=== PATIENT | male | born 1935 | race Caucasian/White ===

== ENCOUNTER → 2016-04-28 | Outpatient (CLI) | payer OTHER ==
[~2016-04-28] MED LIST: CHOL1000 PO; CMD5 PO; DILT-113 PO; SIMV20TA2 PO
--- NOTE | 2016-04-28 13:08 | DIAGNOSTIC IMAGING REPORT ---
CT SCAN OF THE ABDOMEN AND PELVIS WITH IV CONTRAST CLINICAL HISTORY: Prostate cancer. COMPARISON STUDY: No priors. TECHNIQUE: Following the IV administration of 94 cc of Optiray 320, CT scan of the abdomen and pelvis is performed from the lung bases to the proximal femora. Images are reviewed in the axial, sagittal, and coronal planes. IV contrast was administered without complication. Automated dose control exposure was utilized. CT DOSE: 1057.50 mGycm FINDINGS: Lung bases: The heart is markedly enlarged and there is a small to moderate pericardial effusion. The aortic valve leaflets and coronary arteries are calcified. There is a spiculated left lower lobe mass lesion seen abutting the descending thoracic aorta. This measures 3.1 x 3.3 x 2.4 cm as seen on axial image #11. The lung bases are otherwise clear noting dependent atelectasis. Liver: The contrast-enhanced liver is normal in size, contour, and attenuation. There is no intrahepatic biliary ductal dilatation. The hepatic veins and portal veins are patent. Gallbladder: Hyperdense material filling the gallbladder lumen likely represents gallstone/sludge. There is no CT evidence of acute cholecystitis. Spleen: Normal in size and attenuation. Pancreas: There is moderate glandular atrophy of the pancreas. A 6 mm ovoid low-attenuation nodule in the pancreatic tail seen on image #148 likely represents a small sidebranch IPMN. Adrenal glands: Unremarkable. Kidneys: The contrast enhanced kidneys demonstrate mild cortical atrophy and are without hydronephrosis. The kidneys enhance symmetrically. A 1.9 cm cyst is present in the right lower pole. Abdominal vasculature: The abdominal aorta is normal in course and caliber noting mild to moderate atherosclerotic calcification. Bowel: There is no bowel obstruction. There is mild to moderate sigmoid diverticulosis without CT evidence of acute diverticulitis. Colonic interposition is incidentally noted. The appendix is well-visualized and normal. Peritoneum: There is no intraperitoneal free air or abdominal ascites. A small fat-containing umbilical hernia is identified. Lymphadenopathy: A prominent aortocaval node seen just above the iliac bifurcation on image #235 measures 1.4 x 0.8 cm. A pathologically enlarged right common iliac chain node on image #282 measures 2.1 x 1.4 cm. A right external iliac chain node on image #331 measures 2.6 x 2.0 cm. Pelvic viscera: The prostate gland is diminutive and contains brachytherapy seeds. The partially decompressed bladder is normal as imaged. Skeletal structures: The skeletal structures are osteopenic. Mild lumbosacral spondylosis is observed. No lytic or blastic lesions are seen. Hemangiomas are noted in the bodies of L2 and L3. Bony overgrowth is noted from the right aspect of the pubic symphysis. A small bone island is noted in the medial left ilium on image #292. IMPRESSION: 1. There is a 3.3 cm spiculated lung mass identified in the left lower lobe which appears adherent to the descending thoracic aorta. A primary pulmonary neoplasm is favored as the appearance is atypical for metastatic prostate cancer. 2. There are pathologically enlarged right iliac chain lymph nodes. This likely represents metastatic prostate cancer. 3. The prostate gland is diminutive and contains brachytherapy seeds. 4. Cardiomegaly noting a small to moderate pericardial effusion. 5. Cholelithiasis and biliary sludge. There is no CT evidence of acute cholecystitis. 6. Mild to moderate sigmoid diverticulosis without CT evidence of acute diverticulitis. 7. Additional findings as above. Electronically signed by: Ziyad Garcia M.D. 04/28/2016 1:07 PM Dictated Date/Time: 04/28/2016 12:57 PM
--- NOTE | 2016-04-28 15:13 | DIAGNOSTIC IMAGING REPORT ---
ADDENDUM Addendum: There is a voice recognition dictation are in the original report. The report was not completed. Additional findings: There is a focus of increased activity in the right malar region. This would be an atypical focus for a solitary metastasis. IMPRESSION: 1. Unexplained focus of increased activity in the right malar region. 2. Foci of increased activity within the left knee and right foot, likely degenerative/arthritic 3. No foci of increased activity viewed as suspicious for metastatic disease Electronically signed by: Erick Ballesteros M.D. 04/29/2016 2:41 PM Dictated Date/Time: 04/29/2016 2:39 PM ORIGINAL REPORT BONE SCAN WHOLE BODY CLINICAL HISTORY: Prostate carcinoma COMPARISON STUDY: CT scan performed the second 2016 FINDINGS: The patient was injected with 25 mCi of technetium 99m MDP. There are foci of increased activity within the left knee, right shoulder and right foot consistent with degenerative/arthritic changes. There are no foci of increased activity viewed as suspicious for metastatic disease. IMPRESSION: Electronically signed by: Erick Ballesteros M.D. 04/28/2016 3:11 PM Dictated Date/Time: 04/28/2016 2:54 PM
== END | disposition home or self-care (01) ==
LOC: C.NUCL 11:07
PROVIDERS: ATTEND Urology
DX: C61 Malignant neoplasm of prostate (principal); R91.8 Other nonspecific abnormal finding of lung field; I51.7 Cardiomegaly; I31.3 Pericardial effusion (noninflammatory); K80.20 Calculus of gallbladder without cholecystitis without obstruction; K57.30 Diverticulosis of large intestine without perforation or abscess without bleeding

== ENCOUNTER → 2016-04-29 | Outpatient (CLI) | payer OTHER ==
--- NOTE | 2016-04-29 14:48 | DIAGNOSTIC IMAGING REPORT ---
CHEST CT WITHOUT CONTRAST CT DOSE: 517.85 mGy.cm HISTORY: C61 Prostate [id number] Lung massC77.5 TECHNIQUE: Multiaxial CT images of the chest were performed without contrast. COMPARISON: Abdomen and pelvis CT 04/28/2016. FINDINGS: The central airways are patent. The heart remains enlarged. There is a small pericardial effusion, unchanged. Normal caliber thoracic aorta. Cholelithiasis and gallbladder sludge is again noted within the gallbladder. The visualized liver and spleen are unremarkable. Bilateral renal glands may be age-related. No significant mediastinal or hilar lymphadenopathy. No suspicious lytic or blastic osseous lesions. No pneumothorax. No pleural effusions. Redemonstration of the spiculated 3.3 cm mass within the left lower lobe which appears adherent to the descending thoracic aorta. There is a similar-appearing irregular lobulated mass within the left upper lobe which measures approximately 3.5 x 2.2 cm. A 5 mm subpleural nodule within the right upper lobe on image 91. A 1 cm irregular density within the right upper lobe anteriorly on image 115. A 1.5 cm irregular density within the medial axis the right middle lobe on image 150. Possible 7 mm nodule within the right upper lobe on image 123. IMPRESSION: 1. Left upper and left lower lobe masses as described above. There are few small irregular/nodular densities within the right lung. These findings are consistent with metastatic disease. 2. Cholelithiasis and gallbladder sludge. 3. Small pericardial effusion, unchanged. 4. Cardiomegaly. Electronically signed by: Chuy Pearce M.D. 04/29/2016 2:47 PM Dictated Date/Time: 04/29/2016 2:33 PM
== END | disposition home or self-care (01) ==
LOC: C.CTS 10:23
PROVIDERS: ATTEND Urology
DX: R91.8 Other nonspecific abnormal finding of lung field (principal); C77.5 Secondary and unspecified malignant neoplasm of intrapelvic lymph nodes; C61 Malignant neoplasm of prostate; K80.20 Calculus of gallbladder without cholecystitis without obstruction; I31.3 Pericardial effusion (noninflammatory); I51.7 Cardiomegaly

== ENCOUNTER → 2016-05-16 | Day surgery (SDC) | payer OTHER ==
[2016-05-04 14:20] VITALS: BMI 34.0
[~2016-05-16] VITALS: Ht 165.1 cm; Wt 94.5 kg
[~2016-05-16] MED LIST changes: +ATROPINE SULFATE 0.1 MG/ML 5ML SYR IV PRN; +CLINDAMYCIN PHOS 150 MG/ML 2 ML VIAL ONE; +DEXAMETHASONE SOD INJ 4 MG/ML VIAL ONE; +EpHEDrine SULFATE INJ 50 MG/ML AMP IV PRN; +FENTANYL CITRATE INJ 50 MCG/1 ML 2 ML VIAL IV PRN; +FENTANYL CITRATE INJ 50 MCG/1 ML 2 ML VIAL ONE; +LACTATED RINGER'S 1000ML 1,000 ML IV SCH; +LIDOCAINE 2% 20 MG/ML 5ML SYR ONE; +MIDAZOLAM HCL 1 MG/ML 2ML VIAL ONE; +ONDANSETRON INJ 2 MG/ML 2 ML VIAL ONE; +PROPOFOL IV EMULSION 10 MG/ML 20 ML VIAL IV ONE; +ROCURONIUM BROMIDE 10 MG/ML 5 ML VIAL ONE; +SUCCINYLCHOLINE CHLORIDE 20 MG/ML 10 ML VIAL IV ONE
[2016-05-16 10:20] VITALS: BP 152/83; PULSE 80; TEMP 36.7; O2SAT 95; Ht 165.1 cm; Wt 94.5 kg
[2016-05-16 10:25] LABS: BASO % 0.4 %; BASO ABS # 0.04 K/uL (0-0.2); HEMATOCRIT 44.2 % (42-52); IG% 0.3 %; LYMPH % 15.4 %; LYMPH ABS # 1.71 K/uL (1.2-3.4); MEAN CELL VOLUME 92.9 fL (80-100); MEAN CORPUSCULAR HEMOGLOBIN 31.9 pg (25-34); MEAN PLATELET VOLUME 9.6 fL (7.4-10.4); MONO % 7.4 %; NEUT % 75.5 %; PLATELET COUNT 202 K/uL (130-400); RED BLOOD COUNT 4.76 M/uL (4.7-6.1); WHITE BLOOD COUNT 11.09 K/uL (4.8-10.8)
[2016-05-16 10:36] LABS: INR 1.1 (0.9-1.1); PARTIAL THROMBOPLASTIN RATIO 1.1
[2016-05-16 10:39] LABS: COMPLETE YES; MEAN CORPUSCULAR HGB CONC 34.4 g/dl (32-36)
--- NOTE | 2016-05-16 14:21 | Discharge Instructions ---
Discharge Instructions Visit Reason for Visit: Lung Masses Discharge Discharge Diagnosis / Problem: Lung Masses Discharge Goals Goal(s): Learn about illness Activity Recommendations Activity Limitations: resume your previous activity (in 24 hours) Anesthesia . Post Anesthesia Instructions: If you have had General Anesthesia or IV Sedation: * Do not drive today. * Resume driving when surgeon permits. * Do not make important decisions or sign legal documents today. * Call surgeon for: 1. Temperature elevations greater than 101 degrees F. 2. Uncontrollable pain. 3. Excessive bleeding. 4. Persistent nausea and vomiting. 5. Medication intolerance (nausea, vomiting or rash). * For nausea and vomiting use only clear liquids such as: tea, soda, bouillon until nausea subsides, then gradually increase diet as tolerated. * If you have any concerns or questions, call your surgeon's office. If physician is unavailable and it is an emergency, call 911 or go to the nearest emergency room. . Instructions / Follow-Up Instructions / Follow-Up 1. You may cough up some blood. Call physician if excessive amount noted. 2. Office appointment with Dr. Gonzales in 1-2 weeks. Office will call you with date and time of appointment. Diet Recommendations Recommended Home Diet: resume previous diet Pending Studies Studies pending at discharge: no Medical Emergencies . Who to Call and When: Medical Emergencies: If at any time you feel your situation is an emergency, please call 911 immediately. . Non-Emergent Contact Non-Emergency issues call your: Surgeon Call Non-Emergent contact if: you have a fever, your pain is not controlled . . "Provider Documentation" section prepared by Simon Cotto.
--- NOTE | 2016-05-16 14:31 | History & Physical Bridge Note ---
H&P Re-Evaluation Bridge Note: I have examined the patient, reviewed the History & Physical and in the interval since the performance of the History & Physical I have noted the following changes of clinical significance: No changes noted
--- NOTE | 2016-05-16 16:57 | DIAGNOSTIC IMAGING REPORT ---
CHEST 1 VIEW FRONTAL CLINICAL HISTORY: NAVIGATIONAL BRONCH TECHNIQUE: Image intensifier COMPARISON STUDY: None FINDINGS: Navigational bronchoscopy IMPRESSION: Navigational bronchoscopy Electronically signed by: Heron Drake M.D. 05/16/2016 4:56 PM Dictated Date/Time: 05/16/2016 4:56 PM
--- NOTE | 2016-05-16 17:18 | DIAGNOSTIC IMAGING REPORT ---
CHEST ONE VIEW PORTABLE CLINICAL HISTORY: s/p FOB with biopsy postoperative evaluation COMPARISON STUDY: No previous studies for comparison. FINDINGS: Moderate cardiomegaly. No evidence pneumothorax postbiopsy. Diaphragms are smooth. IMPRESSION: Cardiac megaly. No evidence pneumothorax. Electronically signed by: Heron Drake M.D. 05/16/2016 5:16 PM Dictated Date/Time: 05/16/2016 5:16 PM
[2016-05-16 17:40] VITALS: BP 141/91; PULSE 69; TEMP 36.7; O2SAT 97
[2016-05-16 18:10] VITALS: BP 136/83; PULSE 74; O2SAT 96
[2016-05-16 18:40] VITALS: BP 133/84; PULSE 80; TEMP 36.7; O2SAT 93
--- NOTE | 2016-05-16 20:23 | Anesthesiology Progress Note ---
Anesthesia Post Op Note Date & Time May 16, 2016 at 20:22 Vital Signs Pain Intensity: 0 Vital Signs Past 12 Hours Date Time Temp Pulse Resp B/P Pulse Ox O2 Delivery O2 Flow Rate FiO2 05/16/16 18:40 36.7 80 18 133/84 93 Room Air 05/16/16 18:10 74 18 136/83 96 Nasal Cannula 2 05/16/16 17:40 36.7 69 18 141/91 97 Nasal Cannula 2 05/16/16 17:35 36.4 64 16 133/74 94 Nasal Cannula 2 05/16/16 17:25 60 18 138/76 95 Nasal Cannula 2 05/16/16 17:15 62 18 140/84 94 Mask 10 05/16/16 17:05 62 18 147/77 100 Mask 10 05/16/16 16:55 36.2 70 18 135/80 98 Mask 10 05/16/16 10:20 36.7 80 20 152/83 95 Room Air Notes Mental Status: alert / awake / arousable, participated in evaluation Pt Amnestic to Procedure: Yes Nausea / Vomiting: adequately controlled Pain: adequately controlled Airway Patency, RR, SpO2: stable & adequate BP & HR: stable & adequate Hydration State: stable & adequate Anesthetic Complications: no major complications apparent
--- NOTE | 2016-05-16 23:32 | OPERATIVE REPORT ---
DATE OF OPERATION: 05/16/2016 PREOPERATIVE DIAGNOSES: 1. Left upper lobe mass. 2. Left lower lobe mass. 3. History of prostate carcinoma. POSTOPERATIVE DIAGNOSES: Same. PROCEDURES: 1. Endobronchial ultrasound with biopsy. 2. Navigational bronchoscopy with biopsy of left upper lobe and left lower lobe lesions. SURGEON: Dr. Gonzales. STATISTICAL ASSISTANT: DAMON Garcia. ANESTHESIA: General anesthesia endotracheal intubation. INDICATION FOR PROCEDURE AND FINDINGS: Very nice 80-year-old male with history of prostate carcinoma who was found to have 2 masses in his lungs. These certainly have the appearance of a malignancy in the left upper lobe and left lower lobe. I saw the patient in the office. I had a long talk with the patient and his and I felt that we could do a navigational bronchoscopy as well as endobronchial ultrasound. I felt that if we are going to biopsy possible metastatic disease, it should also assess his lymph nodes. PROCEDURE IN DETAIL: On 05/16/2016, the patient was brought to the operating room and underwent uncomplicated endobronchial ultrasound. He had very small nodes. I biopsied both level 10s, both level 4s and the level 7 nodes. There were very small and I really did not get much lymphatic tissue back. We had really very little bleeding with this. The fiberoptic bronchoscope was then placed, we then mapped out the airways. After registering the airways, navigational probe went into left upper lobe and I was able to come right out to this mass which was confirmed with the radial ultrasound. I then did brushings, needle biopsies as well as forceps biopsy with touch preps. I really did not see any diagnostic material. While waiting for the slides to finish, I used 45 mL of a bronchial irrigation and to send for cytology. I then removed this probe and went after the second target, which was in the medial left lower lobe. Then again we came down in a nice area and again I did brushes, biopsy and forceps; however, there were suspicious cells noted on the needles, so I came back and repositioned in a different part of this mass and then again with the ultrasound found I was right in the middle of the mass and I did multiple needle biopsies. Dr. Kevin Lombardo feels that we are dealing with a malignancy. Attention was then turned back towards the left upper lobe but really did not get a diagnosis and I thought this was important. I repositioned the navigational probe into a different area and a different orientation and I biopsied this with a brush and then with multiple needle aspirations. We really had very little in the way of bleeding. I irrigated out his airways nicely. I did do washings of both the upper and the lower lobe. He tolerated it quite well and was extubated in the room. I attest to the content of the Intraoperative Record and any orders documented therein. Any exceptio ns are noted below.
== END | disposition home or self-care (01) ==
LOC: C.ACU 09:46
PROVIDERS: ATTEND Surgery
DX: C78.02 Secondary malignant neoplasm of left lung (principal); R91.8 Other nonspecific abnormal finding of lung field; Z85.46 Personal history of malignant neoplasm of prostate; Z79.01 Long term (current) use of anticoagulants

== ENCOUNTER → 2016-07-25 | Outpatient (CLI) | payer OTHER ==
[~2016-07-25] MED LIST changes: -ATROPINE SULFATE 0.1 MG/ML 5ML SYR IV PRN; -CLINDAMYCIN PHOS 150 MG/ML 2 ML VIAL ONE; -DEXAMETHASONE SOD INJ 4 MG/ML VIAL ONE; -EpHEDrine SULFATE INJ 50 MG/ML AMP IV PRN; -FENTANYL CITRATE INJ 50 MCG/1 ML 2 ML VIAL IV PRN; -FENTANYL CITRATE INJ 50 MCG/1 ML 2 ML VIAL ONE; -LACTATED RINGER'S 1000ML 1,000 ML IV SCH; -LIDOCAINE 2% 20 MG/ML 5ML SYR ONE; -MIDAZOLAM HCL 1 MG/ML 2ML VIAL ONE; -ONDANSETRON INJ 2 MG/ML 2 ML VIAL ONE; +OPTIRAY 320 IV PRN; -PROPOFOL IV EMULSION 10 MG/ML 20 ML VIAL IV ONE; -ROCURONIUM BROMIDE 10 MG/ML 5 ML VIAL ONE; -SUCCINYLCHOLINE CHLORIDE 20 MG/ML 10 ML VIAL IV ONE
--- NOTE | 2016-07-25 09:07 | DIAGNOSTIC IMAGING REPORT ---
ABDOMEN AND PELVIS CT WITH IV CONTRAST CT DOSE: 1254.69 mGy.cm HISTORY: Prostate carcinoma C61 Prostate cancer not diabetic TECHNIQUE: Multiaxial CT images of the abdomen and pelvis were performed following the use of intravenous contrast. COMPARISON STUDY: 2016 FINDINGS: Slight chronic basilar interstitial prominence. Small pericardial effusion unchanged. Spiculated density left base is not well seen currently possibly secondary to field limitations. Interstitial changes at both lung bases again are similar. The gallbladder contains layering gallstones and sludge. Liver is uniform. Pancreas is unremarkable. Kidneys are considered negative for hydronephrosis. There are several small lower pole right renal cyst unchanged. Abdominal and pelvic region showed no significant interval isela pathology. The right iliac chain nodes are stable. There is no significant inguinal isela pathology. Radioactive seeds are identified within the prosthetic bed. Bladder is midline. Bowel pattern is considered nonobstructive. Atherosclerotic change thoracic aorta and iliac vasculature is stable. IMPRESSION: Stable evaluation of the abdomen and pelvis. 2. Spiculated left lower lobe mass was described is not well-defined on the current study possibly secondary to field limitations 3. Study is otherwise unchanged. 4. Gallstones and gallbladder sludge are similar. 5. Right inguinal adenopathy is nonprogressive. 6. No evidence for new interval or progressive pathologic process. Electronically signed by: Heron Drake M.D. 07/25/2016 9:05 AM Dictated Date/Time: 07/25/2016 8:59 AM
--- NOTE | 2016-07-25 09:10 | DIAGNOSTIC IMAGING REPORT ---
CT OF THE CHEST WITH IV CONTRAST CLINICAL HISTORY: Pulmonary nodule. Prostate carcinoma. COMPARISON STUDY: 04/29/2016 TECHNIQUE: Following the IV administration of 118 mL of Optiray-320, CT of the thorax was performed from the thoracic inlet to the lung bases. Images are reviewed in the axial, sagittal, and coronal planes. IV contrast was administered without complication. CT DOSE: FINDINGS: Thyroid: Imaged portions of the thyroid gland are normal in appearance. Thoracic aorta: There is persistent ectasia of the ascending thoracic aorta which measures 42 mm. Pulmonary vasculature: The pulmonary trunk is normal in caliber. There are no central filling defects identified to suggest pulmonary embolus. Note that this examination was not protocoled for the evaluation of pulmonary emboli. HEART: The heart is mildly enlarged. There is small pericardial effusion. Lungs and pleural spaces: There is interval decrease in the size of a mildly irregular left upper lobe pulmonary nodule which measures 18 mm. There is also interval decrease in the size of a lobulated left lower lobe pulmonary nodule which abuts the aorta. This measures 22 mm. Mediastinum: Paratracheal lymph nodes remain the upper limits of normal in size. Cony: There is no evidence of pathologic hilar adenopathy Axilla: Clear. Upper abdomen: There is hepatic steatosis. Skeletal structures: There are no lytic or blastic osseous lesions. IMPRESSION: 1. Interval decrease in the size of the left upper lobe and left lower lobe pulmonary masses 2. Hepatic steatosis. 3. Stable cardiomegaly Electronically signed by: Erick Ballesteros M.D. 07/25/2016 9:09 AM Dictated Date/Time: 07/25/2016 8:58 AM
== END | disposition home or self-care (01) ==
LOC: C.CTS 08:28
PROVIDERS: ATTEND Urology
DX: C61 Malignant neoplasm of prostate (principal); K80.20 Calculus of gallbladder without cholecystitis without obstruction; R59.0 Localized enlarged lymph nodes; R91.8 Other nonspecific abnormal finding of lung field; I51.7 Cardiomegaly; K76.0 Fatty (change of) liver, not elsewhere classified

== ENCOUNTER → 2016-10-28 | Outpatient (CLI) | payer OTHER ==
[~2016-10-28] MED LIST changes: -OPTIRAY 320 IV PRN
[2016-10-28 12:42] LABS: ALT/SGPT 32 U/L (12-78); AST/SGOT 28 U/L (15-37); BLOOD UREA NITROGEN 20 mg/dl (7-18); BUN/CREATININE RATIO 18.3 (10-20); CALCIUM 9.1 mg/dl (8.5-10.1); CARBON DIOXIDE 29 mmol/L (21-32); CHLORIDE 104 mmol/L (98-107); GLUCOSE 95 mg/dl (70-99); POTASSIUM 4.5 mmol/L (3.5-5.1); SODIUM 139 mmol/L (136-145)
[2016-10-28 12:44] LABS: ALB/GLOB RATIO 1.1 (0.9-2)
[2016-10-28 12:45] LABS: ALKALINE PHOSPHATASE 58 U/L (45-117); PROSTATE SPECIFIC ANTIGEN 0.329 ng/ml (0.000-4.000)
== END | disposition home or self-care (01) ==
LOC: C.LABBFT 10:43
PROVIDERS: ATTEND Urology
DX: C61 Malignant neoplasm of prostate (principal)

== ENCOUNTER → 2016-12-28 | Outpatient (CLI) | payer OTHER ==
[2016-12-28 12:39] LABS: BLOOD UREA NITROGEN 27 mg/dl (7-18); BUN/CREATININE RATIO 22.4 (10-20)
[2016-12-28 12:43] LABS: PROSTATE SPECIFIC ANTIGEN 0.265 ng/ml (0.000-4.000)
== END | disposition home or self-care (01) ==
LOC: C.LABBFT 10:06
PROVIDERS: ATTEND Urology
DX: C61 Malignant neoplasm of prostate (principal)

== ENCOUNTER → 2017-01-11 | Outpatient (CLI) | payer OTHER ==
[~2017-01-11] MED LIST changes: +OPTIRAY 320 IV PRN
--- NOTE | 2017-01-11 09:57 | DIAGNOSTIC IMAGING REPORT ---
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 Images are reviewed in the axial, sagittal, and coronal planes. IV contrast was administered without complication. A dose lowering technique was utilized adhering to the principles of ALARA. CT DOSE: 1519.89 mGy.cm FINDINGS: Thyroid: Imaged portions of the thyroid gland are normal in appearance. Thoracic aorta: There is mild dilatation of the ascending thoracic aorta which measures 41 mm. Pulmonary vasculature: The pulmonary trunk is normal in caliber. There are no central filling defects identified to suggest pulmonary embolus. Note that this examination was not protocoled for the evaluation of pulmonary emboli. HEART: The heart is enlarged. There is a minimal pericardial effusion. There are coronary artery calcifications present. Lungs and pleural spaces: There are no pleural effusions. There are dependent groundglass opacities, likely atelectatic. There is been further interval decrease in the size of the left upper lobe pulmonary nodule which currently measures 12 mm. This abuts an area of presumed atelectasis/scarring. There is been further decrease in the size of the left lower lobe pulmonary nodule which currently measures 16 mm. No new or enlarging pulmonary nodules are visualized. Mediastinum: There is no pathologic mediastinal adenopathy by size criteria. Cony: There is no pathologic hilar lymphadenopathy Axilla: There is no pathologic axillary lymphadenopathy Upper abdomen: Partially visualized upper abdominal viscera is within normal limits. Skeletal structures: There are no lytic or blastic osseous lesions. IMPRESSION: 1. Further interval decrease in the size of the left upper lobe and lower lobe pulmonary masses. 2. No new or enlarging pulmonary nodules 3. Persistent cardiomegaly Electronically signed by: Erick Ballesteros M.D. 01/11/2017 9:56 AM Dictated Date/Time: 01/11/2017 9:47 AM
--- NOTE | 2017-01-11 10:14 | DIAGNOSTIC IMAGING REPORT ---
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 No acute complaints COMPARISON: CT abdomen and pelvis 07/25/2016 and 04/28/2016, CT chest of same day TECHNIQUE: Multiple axial CT images of the abdomen and pelvis were obtained following the intravenous administration of 93 mL Optiray 320. A dose lowering technique was used consistent with the principals of JAVI. FINDINGS: Mild groundglass bibasilar opacities suggest atelectasis. No pneumoperitoneum. Imaged inferior cardiac chambers are moderately to severely enlarged with small pericardial effusion. There are calcifications of the aortic annulus. Within the anterior right hepatic lobe, segment VIII there is a 1.2 x 1.0 cm hyperattenuating focus which in retrospect was likely present dating back to 04/28/2016, however appearing slightly more conspicuous on today's study seen on image 15 of series 5. No intrahepatic biliary ductal dilation. No suspicious mass lesions of the liver identified. Probable cyst of the posterior right hepatic lobe is seen, 6 mm on image 28 series 5, unchanged. Layering hyperattenuating material is seen within the gallbladder lumen is unchanged suggesting gallbladder sludge and gallstones with vicarious excretion of contrast not be less likely. The spleen is unremarkable with the exception of a 7 mm low attenuating lesion of the posterior aspect spleen which is unchanged and indeterminate, however statistically benign. 7 mm low attenuating lesion of the posterior pancreatic tail on image 137 series 6 suggests a small sidebranch IPMN, also unchanged. Moderate diffuse glandular pancreatic atrophy. There is moderate thickening of the left adrenal gland suggesting adrenal hyperplasia, unchanged. The right adrenal gland is within normal limits. 2.2 cm low attenuating lesion of the inferior pole right kidney suggests cyst. 7 mm slightly hyperattenuating lesion of the posterior aspect inferior pole right kidney is unchanged and suggests a hemorrhagic cyst, however is indeterminate as well. No renal calculi or hydronephrosis. Ureters are unremarkable. Urinary bladder is collapsed with wall thickening and surrounding inflammatory stranding. Brachy therapy seeding of the diminutive prostate. Bilateral carotid plaquing of the abdominal aorta and iliac vasculature. Index lymph node of the right external iliac chain on image 317 of series 6 measures 1.7 x 1.3 cm, previously 2.4 x 1.8 cm on study dated 07/25/2016 on image 309 of series 6. Additional external iliac chain lymph node measuring 5 mm on image 309 has decreased in size, previously measuring 7 mm. Right common iliac lymph node on image 272 series 6 measures 7 mm in short axis, previously 12 mm. No new adenopathy identified. Pericaval 7 mm lymph node is seen on image 212, previously 8 mm. Inguinal lymph nodes measure up to 1.2 cm in short axis, unchanged. No bowel obstruction or focal bowel wall thickening identified. There is minimal nonspecific free fluid within the dependent pelvis. Colonic diverticulosis without diverticulitis. The appendix appears normal. Soft tissues are unremarkable. No suspicious lytic or blastic bony lesions. Sclerotic focus of the left iliac bone, 6 mm is unchanged suggesting bone island. Remote post matter changes of the right pubic bone. Advanced multilevel discogenic degenerative changes. Hemangioma of L3. IMPRESSION: 1. Findings compatible with positive response to therapy with decreased size of retroperitoneal and iliac chain lymph nodes as above. No new adenopathy or evidence of progressive metastatic disease. 2. Cholelithiasis and biliary sludge appears unchanged without CT evidence of acute cholecystitis. 3. Colonic diverticulosis without CT evidence of acute diverticulitis. 4. Diminutive size of the prostate with brachytherapy seeds. 5. 1.2 cm hyperattenuating focus of the right hepatic lobe is nonspecific and appears unchanged dating back to 04/28/2016, possibly reflecting a flash filling hemangioma. 6. Additional incidental findings as above. The above report was generated using voice recognition software. It may contain grammatical, syntax or spelling errors. Electronically signed by: Matias Torre M.D. 01/11/2017 10:13 AM Dictated Date/Time: 01/11/2017 9:52 AM
== END | disposition home or self-care (01) ==
LOC: C.CTS 09:10
PROVIDERS: ATTEND Urology
DX: C61 Malignant neoplasm of prostate (principal); C77.5 Secondary and unspecified malignant neoplasm of intrapelvic lymph nodes; R91.8 Other nonspecific abnormal finding of lung field; K80.20 Calculus of gallbladder without cholecystitis without obstruction; K57.30 Diverticulosis of large intestine without perforation or abscess without bleeding

== ENCOUNTER → 2017-05-04 | Outpatient (CLI) | payer OTHER ==
[~2017-05-04] MED LIST changes: -OPTIRAY 320 IV PRN
[2017-05-04 17:38] LABS: ALBUMIN 3.8 gm/dl (3.4-5.0); BLOOD UREA NITROGEN 23 mg/dl (7-18); CALCIUM 9.1 mg/dl (8.5-10.1); CARBON DIOXIDE 31 mmol/L (21-32); CREATININE 1.21 mg/dl (0.60-1.40); GLUCOSE 85 mg/dl (70-99); POTASSIUM 3.8 mmol/L (3.5-5.1); SODIUM 138 mmol/L (136-145)
[2017-05-04 17:44] LABS: ALKALINE PHOSPHATASE 52 U/L (45-117); ALT/SGPT 32 U/L (12-78); AST/SGOT 35 U/L (15-37); TOTAL PROTEIN 7.2 gm/dl (6.4-8.2)
== END | disposition home or self-care (01) ==
LOC: C.LABBFT 11:30
PROVIDERS: ATTEND Urology
DX: C61 Malignant neoplasm of prostate (principal)

== ENCOUNTER → 2017-08-16 | Outpatient (CLI) | payer OTHER ==
[2017-08-16 12:51] LABS: ALBUMIN 3.8 gm/dl (3.4-5.0); ALKALINE PHOSPHATASE 60 U/L (45-117); ALT/SGPT 27 U/L (12-78); AST/SGOT 24 U/L (15-37); BLOOD UREA NITROGEN 22 mg/dl (7-18); CALCIUM 8.9 mg/dl (8.5-10.1); CARBON DIOXIDE 30 mmol/L (21-32); CREATININE 1.35 mg/dl (0.60-1.40); GLUCOSE 137 mg/dl (70-99); SODIUM 140 mmol/L (136-145); TOTAL PROTEIN 7.5 gm/dl (6.4-8.2)
== END | disposition home or self-care (01) ==
LOC: C.LABBFT 09:41
PROVIDERS: ATTEND Urology
DX: C78.00 Secondary malignant neoplasm of unspecified lung (principal)

== ENCOUNTER 2024-01-26 12:02 | Inpatient (IN) ==
--- NOTE | 2024-01-26 12:48 | Emergency Department Note ---
History of Present Illness General Chief complaint: GI Bleed Stated complaint: BLOODY STOOL/GI BLEED Time Seen by Provider: 01/26/24 12:32 Source: patient, family (Family is at the bedside), RN notes reviewed and old records reviewed (06/26/23-Dr. George's cardiology note from today) Mode of arrival: ambulatory Limitations: no limitations History of Present Illness This patient 88-year-old male who comes in after being sent over from Dr. George's office after having GI bleed/anemia. He is actually scheduled to have colonoscopy done in [place] on Monday. He has had a low hemoglobin but according to family is gotten lower. He feels okay at rest rest except for just feeling tired he has dyspnea on exertion but no chest pain no cough no no abdominal pain. He had been on iron and he stopped that they also stopped his Coumadin in anticipation of his procedure coming up he does have A-fib and pacemaker. He does have a bovine valve replacement. No bleeding or bruising elsewhere he has a history of prostate cancer which she says is in remission. No recent chemo. No history of blood transfusion Home Medications Medication Instructions Recorded Confirmed Type acetaminophen 325 mg tablet 325 mg PO DAILY PRN Pain 10/11/18 01/26/24 History cholecalciferol (vitamin D3) 25 1,000 unit PO DAILY 10/11/18 01/26/24 History mcg (1,000 unit) tablet leuprolide acetate (6 month) 45 mg 0 mg IM Q24W 10/11/18 01/26/24 History intramuscular syringe kit (Lupron Depot) amlodipine 2.5 mg tablet 2.5 mg PO QAM 01/26/24 01/26/24 History aspirin 81 mg tablet,delayed 81 mg PO DAILY 01/26/24 01/26/24 History release atorvastatin 20 mg tablet 20 mg PO DAILY 01/26/24 01/26/24 History hydrochlorothiazide 25 mg tablet 25 mg PO UD 01/26/24 01/26/24 History iron,carbonyl 65 mg-vitamin C 125 1 tab PO DAILY 01/26/24 01/26/24 History mg tablet,delayed release (Vitron-C) isosorbide dinitrate 20 mg tablet 20 mg PO BID 01/26/24 01/26/24 History metoprolol succinate 25 mg 25 mg PO DAILY 01/26/24 01/26/24 History tablet,extended release 24 hr omeprazole 20 mg capsule,delayed 20 mg PO QAM 01/26/24 01/26/24 History release warfarin 5 mg tablet See Rx Instructions .Route .COMPLEX 01/26/24 01/26/24 History Allergies Allergy/AdvReac Type Severity Reaction Status Date / Time No Known Allergies Allergy Verified 01/26/24 14:50 Past Med/Surg History Problem List (Updated 01/26/24 @ 18:08 by Irineo Parnell MD) Weakness (Acute) Anemia (Acute) Elbow mass Acute on chronic diastolic heart failure with preserved ejection fraction (Acute) History of bioprosthetic transcatheter aortic valve implantation (KEILA) (Acute) CKD (chronic kidney disease), stage III Dyslipidemia HTN (hypertension) Chronic heart failure with preserved ejection fraction (HFpEF) Symptomatic anemia Atrial fibrillation 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 Osteoarthritis Prostate cancer Secondary cancer of lung Sleep apnea Social History Smoking Status: Never smoker Second Hand Exposure: No; Do You Dip or Chew Tobacco: No; Tobacco Cessation Education Requested by Patient: No Hx Alcohol Use: No Hx Substance Use: No Preferred Language: Divehi Communication Ability: Effective Quality Improvement Consultant Required: No Beliefs That Will Affect Care: None Current Living Situation: Spouse Other Information That Helps Us Care for You: No Feels Safe at Home: Yes Safety Concerns: Feels Safe At This Time Assistive Devices: CPAP and Glasses Review of Systems A total of 10 systems reviewed and were otherwise negative Physical Exam Vital Signs Vital Signs - 24 hr 01/26/24 12:03 01/26/24 12:03 01/26/24 13:40 Temperature 36.6 C Temperature Source Temporal Artery Scan Pulse Rate 82 Pulse Rate [Left Finger] 66 Respiratory Rate 18 18 20 Blood Pressure 170/86 H Blood Pressure [Right Arm] 139/80 Blood Pressure Mean 114 Blood Pressure Mean [Right Arm] 99 Blood Pressure Position [Right Arm] Lying Pulse Oximetry 99 92 Sepsis Recent Fever Within 48 Hours No Sepsis New/Unexplained Change in Mental Status N/A Sepsis Action Taken by Nursing No Action Required 01/26/24 14:04 Temperature Temperature Source Pulse Rate 66 Pulse Rate [Left Finger] Respiratory Rate Blood Pressure Blood Pressure [Right Arm] Blood Pressure Mean Blood Pressure Mean [Right Arm] Blood Pressure Position [Right Arm] Pulse Oximetry Sepsis Recent Fever Within 48 Hours Sepsis New/Unexplained Change in Mental Status Sepsis Action Taken by Nursing General: Well developed well nourished somewhat pale older male who appears in no acute distress, breathing comfortably on room air. Normal speech HEENT: Normal cephalic atraumatic. Pupils are equal round and reactive to light. Extraocular movements are intact. Oropharynx is pink with moist mucous membranes. No swelling of the mouth lips or tongue. Neck: Supple with a midline trachea. No meningeal signs or stiffness, no JVD or bruits. No Stridor. Chest: Clear to auscultation bilaterally. No wheezes or rhonchi. No increased work of breathing. Heart: Regular rate and rhythm without murmurs or gallops. Abdomen: Soft nontender, nondistended without rebound guarding or rigidity. Rectal: Normal rectal tone, brown stool, guaiac negative Extremities: No cyanosis clubbing. Trace to 1+ bilateral lower extremity edema which patient says is unchanged from baseline no calf tenderness or assymetry Spine/Back. Non tender to palpation. No CVA tenderness Skin: Good turgor without rashes. Neurologic exam: Cranial nerves two through 12 are intact. Motor and sensation are intact and symmetrical throughout. Medical Decision Making Differential Diagnosis GI bleed, anemia, cardiac disease, bone marrow problem, cancer related complication, valvular heart disease Medical Records Attestation: I reviewed the patient's medical records. Home Medications Current Medication List: was personally reviewed by me Laboratory Data Attestation: I reviewed the patient's lab results. Chest x-raycardiomegaly but no acute infiltrate, failure, pneumothorax 01/26/24 12:19 01/26/24 14:21 Lab Results 01/26/24 01/26/24 Range/Units 12:19 14:02 WBC 12.01 H (4.8-10.8) K/ul RBC 3.12 L (4.70-6.10) M/uL Hgb 8.1 L (14.0-18.0) g/dl Hct 25.2 L (42.0-52.0) % MCV 80.8 (80.0-100.0) fL MCH 26.0 (25.0-34.0) pg MCHC 32.1 (32.0-36.0) g/dL RDW Std Deviation 46.6 H (36.4-46.3) fL RDW Coeff of Judith 15.9 H (11.5-14.5) % Plt Count 380 (130-400) K/uL MPV 9.6 (9.4-12.4) fL PT 33.0 H (9.0-12.0) Seconds INR 3.4 H (0.9-1.1) APTT 48 H (21-31) Seconds PTT Ratio 1.8 Sodium 135 L (136-145) mmol/L Potassium TNP Chloride 97 L (98-107) mmol/L Carbon Dioxide 30 (21-32) mmol/L Anion Gap 8 (3-11) BUN 26 H (6-23) mg/dl Creatinine 1.07 (0.6-1.4) mg/dl Est Cr Clr Drug Dosing 50.2 ml/min eGFR 67.58 BUN/Creatinine Ratio 24.3 H (10-20) Glucose 104 H (70-99(Fasting)) mg/dl Calcium 9.0 (8.6-10.3) mg/dl Total Bilirubin 0.7 (0.2-1.0) mg/dl AST TNP ALT 15 (7-52) U/L Alkaline Phosphatase 83 (34-104) U/L Troponin I High Sens 14.0 (0-20) pg/ml Total Protein 7.2 (6.0-8.3) gm/dl Albumin 3.5 (3.4-5.0) gm/dl Globulin 3.7 (2.5-4.0) gm/dl Albumin/Globulin Ratio 0.9 (0.9-2) POC Stool Occult Blood Negative (Negative) Blood Type AB Positive Antibody Screen NEGATIVE Imaging Data Attestation: I personally reviewed and interpreted this imaging study as follows: My Impression: Chest x-ray significant cardiomegaly. She does have some pulmonary vascular congestion but no overt CHF. No pneumonia. Radiologist's Impression: Chest X-Ray 01/26/24 12:44 XR chest 1V portable HISTORY: 88 years-old Male mccloud acute shortness of breath COMPARISON: 11/20/2019 TECHNIQUE: AP view of the chest FINDINGS: Marked cardiomegaly. Single lead left subclavian pacer. Aortic valvular endograft. Pulmonary vascular congestion. No pneumothorax. Trace left pleural effusion with mild linear subsegmental bibasilar densities. Degenerative changes of the shoulders and spine the IMPRESSION: 1. Cardiomegaly with pulmonary vascular congestion. 2. Trace pleural effusions with left basilar predominant opacities suggestive of atelectasis. ACT 112: Negative or not required by law. The above report was generated using voice recognition software. It may contain grammatical, syntax or spelling errors. Electronically signed by: Roc Torre M.D. 01/26/2024 1:06 PM [facility] Narrative This patient comes in as described above. He was sent over after having a low hemoglobin and GI bleed. He tells me he had black stool a week ago but was also on iron he said none since then but does feel weak and apparently his counts are down I did discuss the case with Irineo our caser in so. We could get the records from [employer] [facility]. Labs were also obtained here he was typed and screened EKG and chest x-ray obtained he was reassessed frequently. Has been hemodynamically stable. His hemoglobin here is 8.1. He does have significant cardiomegaly and concern for CHF if he were to be given a transfusion. He has no significant renal abnormalities. I did consult the hospitalist as I do think he needs to be admitted/observed for further treatment and evaluation. At this point he will he was guaiac negative from below but sounds like he has been have intermittent bleeding. He has been off his Coumadin for couple days but his INR is still in the 3 range. Continuous cardiac monitoring: Orders placed in EMR for continuous cardiac specialist: Upon evaluation patient noted to be what appears to be rate controlled A-fib in the 65 range Impression & Plan Anemia, History of bioprosthetic transcatheter aortic valve implantation (KEILA), Acute on chronic diastolic heart failure with preserved ejection fraction, Weakness Discharge Plan Visit Data Chief Complaint: GI Bleed Stated Complaint: BLOODY STOOL/GI BLEED ED Provider: Irineo Parnell Discharge Problem: Anemia, History of bioprosthetic transcatheter aortic valve implantation (KEILA), Acute on chronic diastolic heart failure with preserved ejection fraction, Weakness Patient Disposition: Admitted As Inpatient Discharge Instructions Interventions: ED Discharge Assessment Last Done: 01/26/24 15:00 Discharge Problem: Anemia Qualifiers: Anemia type: unspecified type Qualified Code(s): D64.9 - Anemia, unspecified
--- NOTE | 2024-01-26 13:08 | XRay Report ---
XR chest 1V portable HISTORY: 88 years-old Male mccloud acute shortness of breath COMPARISON: 11/20/2019 TECHNIQUE: AP view of the chest FINDINGS: Marked cardiomegaly. Single lead left subclavian pacer. Aortic valvular endograft. Pulmonary vascular congestion. No pneumothorax. Trace left pleural effusion with mild linear subsegmental bibasilar den sities. Degenerative changes of the shoulders and spine the IMPRESSION: 1. Cardiomegaly with pulmonary vascular congestion. 2. Trace pleural effusions with left basilar predominant opacities suggestive of atelectasis. ACT 112: Negative or not required by law. The above report was generated using voice recognition software. It may contain grammatical, syntax o r spelling errors. Electronically signed by: Roc Torre M.D. 01/26/2024 1:06 PM
[2024-01-26 13:14] LABS: Hematocrit (blood only) 25.2 % (42.0-52.0); Hemoglobin 8.1 g/dl (14.0-18.0); Mean Corpuscular Hgb Conc 32.1 g/dL (32.0-36.0); Mean Corpuscular Volume 80.8 fL (80.0-100.0); Mean Platelet Volume 9.6 fL (9.4-12.4); Platelet Count 380 K/uL (130-400); RDW Coefficient of Variation 15.9 % (11.5-14.5); RDW Standard Deviation 46.6 fL (36.4-46.3); Red Blood Count 3.12 M/uL (4.70-6.10); White Blood Count 12.01 K/ul (4.8-10.8)
[2024-01-26 13:34] LABS: Alanine Aminotransferase 15 U/L (7-52); Albumin Globulin Ratio 0.9 (0.9-2); Albumin Level 3.5 gm/dl (3.4-5.0); Alkaline Phosphatase 83 U/L (34-104); Anion Gap 8 (3-11); BUN Creatinine Ratio 24.3 (10-20); Bilirubin,Total 0.7 mg/dl (0.2-1.0); Blood Urea Nitrogen 26 mg/dl (6-23); Carbon Dioxide 30 mmol/L (21-32); Chloride 97 mmol/L (98-107); Creatinine Clr Calc Pharmacy 50.2 ml/min; Globulin 3.7 gm/dl (2.5-4.0); Glucose 104 mg/dl (70-99(Fasting)); Sodium 135 mmol/L (136-145); Total Protein 7.2 gm/dl (6.0-8.3)
[2024-01-26 13:39] LABS: INR 3.4 (0.9-1.1); Partial Thromboplastin Ratio 1.8; Partial Thromboplastin Time 48 Seconds (21-31)
--- NOTE | 2024-01-26 14:09 | History & Physical Report ---
Date of Service January 26, 2024 Assessment & Plan (1) Symptomatic anemia: (2) Chronic heart failure with preserved ejection fraction (HFpEF): (3) Atrial fibrillation: (4) HTN (hypertension): (5) Dyslipidemia: (6) CKD (chronic kidney disease), stage III: (7) History of bioprosthetic transcatheter aortic valve implantation (KEILA): (8) Sleep apnea: (9) Prostate cancer: Plan: Patient is 88-year-old male with PMH chronic atrial fibrillation anticoagulated on warfarin, history KEILA in 10/2018, symptomatic s/p pacemaker, chronic diastolic heart failure HTN, dyslipidemia, CKD III, sleep apnea, prostate cancer, obesity presented to ER with c/o exertional SOB. #Symptomatic Anemia #Hematochezia #Exertional SOB In ER afebrile, BP: 170/86, repeat BP: 139/80, P: 82, R: 18, 99% on RA Hgb: 8.1. Outpatient Hgb: 7.8 on 01/23/24 and 9.4 on 12/15/23, 12 on 12/29/22 INR: 3.4 In ER Hemoccult negative stool Suspect multifactorial exertional shortness of breath secondary to symptomatic anemia and acute on chronic HFpEF Clear liquid diet for now NPO Midnight GI consult PPI BID Type and cross and hold PRBC Iron supplement on hold CBC in am Blood consent was obtained from the patient as delegated by Dr. Miles. Risks and benefits were explained. All questions were answered, and the patient (or patient delegate) was offered the opportunity to discuss with attending physician and declined. #Acute on chronic HFpEF 09/02/2022 echo: EF: 55-59%, small inferior wall motion abnormality with akinesis of the segments. Severe biatrial enlargement, bioprosthetic aortic valve with perivalvular aortic valve prosthesis regurgitation present, mild mitral regurgitation BNP:388 CXR: +vascular congestion Given 40 mg Lasix IV Monitor I's and O's, daily weight Echo Hold home HCTZ Cardiology consult. Recommended Lasix 40 mg daily BMP in am #Chronic Atrial fibrillation Anticoagulated on Coumadin INR: 3.4 Per chart review outpatient INR on 01/23/2024 was 3.7. Coumadin has been on hold since 01/23/24 for planned outpatient EGD and colonoscopy on 01/29/24 Hold Coumadin Continue metoprolol succinate #Right elbow mass Reported right elbow mass for the past couple weeks 01/17/2024: Outpatient right extremity ultrasound: Indeterminate solid mass at lateral aspect of right elbow with internal vascularity. 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 SCDs Admit telemetry DNR/DNI as per discussion with pt Follows with Dr Hutchinson for routine care Pt was seen and care coordinated with Dr Miles. See addendum I spent a total of 80 minutes reviewing notes, outpatient records, labs, medication, coordinating, documenting and providing care for this patient excluding time spent in the performance of separately billed services. History of Present Illness Chief Complaint: Sent from clinic for progressive anemia, SOB Primary Care Provider: Heron Hutchinson MD Patient is 88-year-old male with PMH chronic atrial fibrillation anticoagulated on warfarin, history KEILA in 10/2018, symptomatic s/p pacemaker, chronic diastolic heart failure HTN, dyslipidemia, CKD III, sleep apnea, prostate cancer, obesity presented to ER with c/o exertional SOB. Patient states has been having intermittent blood in stool. States last week had BM and passed a blood clot. Reports prior to that having pink tinged blood in stool. Since starting iron noticed dark color stools. C/O increased fatigue, dyspnea on exertion for last couple weeks. C/O increased abdominal girth and increased lower extremity past 2 weeks. Patient reports abdomen feels bloated. He reports decreased appetite and decreased oral intake. Reports is lost approximately 10 pounds over the last couple of months. Per outpatient chart review visit with GI on 01/04/24 and patient has been having downtrending hemoglobin, iron deficiency anemia and was placed on oral iron and PPI. He was scheduled to have colonoscopy and endoscopy on 01/29/2024. His Coumadin has been on hold since 01/23/2024 for his upcoming procedure. Seen in cardiology clinic today and felt to have decompensated heart failure and with concerns of progressive anemia patient was referred to ER for further evaluation. Denies fever/chills, diaphoresis, vomiting, diarrhea, DUGAN, dizziness, syncope, CP, SOB, orthopnea, palpitations, cough, sore throat, rhinorrhea, rashes, urinary symptoms. Allergies Allergy/AdvReac Type Severity Reaction Status Date / Time No Known Allergies Allergy Verified 01/26/24 14:50 Home Medications Medication Instructions Recorded Confirmed Type acetaminophen 325 mg tablet 325 mg PO DAILY PRN Pain 10/11/18 01/26/24 History cholecalciferol (vitamin D3) 25 1,000 unit PO DAILY 10/11/18 01/26/24 History mcg (1,000 unit) tablet leuprolide acetate (6 month) 45 mg 0 mg IM Q24W 10/11/18 01/26/24 History intramuscular syringe kit (Lupron Depot) amlodipine 2.5 mg tablet 2.5 mg PO QAM 01/26/24 01/26/24 History aspirin 81 mg tablet,delayed 81 mg PO DAILY 01/26/24 01/26/24 History release atorvastatin 20 mg tablet 20 mg PO DAILY 01/26/24 01/26/24 History hydrochlorothiazide 25 mg tablet 25 mg PO UD 01/26/24 01/26/24 History iron,carbonyl 65 mg-vitamin C 125 1 tab PO DAILY 01/26/24 01/26/24 History mg tablet,delayed release (Vitron-C) isosorbide dinitrate 20 mg tablet 20 mg PO BID 01/26/24 01/26/24 History metoprolol succinate 25 mg 25 mg PO DAILY 01/26/24 01/26/24 History tablet,extended release 24 hr omeprazole 20 mg capsule,delayed 20 mg PO QAM 01/26/24 01/26/24 History release warfarin 5 mg tablet See Rx Instructions .Route .COMPLEX 01/26/24 01/26/24 History Past Med/Surg History Problem List Weakness (Acute) Anemia (Acute) Elbow mass Acute on chronic diastolic heart failure with preserved ejection fraction (Acute) History of bioprosthetic transcatheter aortic valve implantation (KEILA) (Acute) CKD (chronic kidney disease), stage III Dyslipidemia HTN (hypertension) Chronic heart failure with preserved ejection fraction (HFpEF) Symptomatic anemia Atrial fibrillation 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 Osteoarthritis Prostate cancer Secondary cancer of lung Sleep apnea Social History Smoking Status: Never smoker Second Hand Exposure: No; Do You Dip or Chew Tobacco: No; Tobacco Cessation Education Requested by Patient: No Hx Alcohol Use: No Hx Substance Use: No Preferred Language: Frisian Communication Ability: Effective 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: No Beliefs That Will Affect Care: None Current Living Situation: Spouse Other Information That Helps Us Care for You: No Feels Safe at Home: Yes Safety Concerns: Feels Safe At This Time Assistive Devices: CPAP and Glasses Review of Systems Review of Systems: All systems reviewed & are unremarkable except as noted in HPI & below Physical Exam Physical Exam: General: no distress, WDWN Head: normocephalic, atraumatic Eyes: conjunctiva non-injected, anicteric ENT: normal inspection external ears, nose, mucous membranes moist Neck: supple, trachea midline Lungs: no respiratory distress, +rales bases bilateraly CV: irregularly irregular, + murmur, 2+ pretibial edema Abd: +distended, normal BS, soft, non-tender Ext: no cyanosis, no calf tenderness, Right elbow with mass without erythema Neuro: A&O x 3, no focal deficits noted, normal affect Skin: warm, dry Results & Data Results & Data Vital Signs (Past 12 Hours) Vital Signs Temp Pulse Pulse Resp BP BP Pulse Ox 01/26/24 13:40 66 20 139/80 92 01/26/24 12:03 18 01/26/24 12:03 36.6 C 82 18 170/86 H 99 Laboratory Results Short CBC 01/26/24 Range/Units 12:19 WBC 12.01 H (4.8-10.8) K/ul Hgb 8.1 L (14.0-18.0) g/dl Hct 25.2 L (42.0-52.0) % Plt Count 380 (130-400) K/uL BMP 01/26/24 01/26/24 12:19 14:21 Sodium 135 L Potassium TNP 3.5 Chloride 97 L Carbon Dioxide 30 BUN 26 H Creatinine 1.07 Glucose 104 H Calcium 9.0 Liver Function 01/26/24 01/26/24 Range/Units 12:19 14:21 Total Bilirubin 0.7 (0.2-1.0) mg/dl AST TNP 22 ALT 15 (7-52) U/L Alkaline Phosphatase 83 (34-104) U/L Albumin 3.5 (3.4-5.0) gm/dl Diagnostic Findings Chest X-Ray 01/26/24 12:44 XR chest 1V portable HISTORY: 88 years-old Male mccloud acute shortness of breath COMPARISON: 11/20/2019 TECHNIQUE: AP view of the chest FINDINGS: Marked cardiomegaly. Single lead left subclavian pacer. Aortic valvular endograft. Pulmonary vascular congestion. No pneumothorax. Trace left pleural effusion with mild linear subsegmental bibasilar densities. Degenerative changes of the shoulders and spine the IMPRESSION: 1. Cardiomegaly with pulmonary vascular congestion. 2. Trace pleural effusions with left basilar predominant opacities suggestive of atelectasis. ACT 112: Negative or not required by law. The above report was generated using voice recognition software. It may contain grammatical, syntax or spelling errors. Electronically signed by: Roc Torre M.D. 01/26/2024 1:06 PM Supervising Physician Co-Signing Physician Notes Attending Addendum: Case reviewed with the advanced practitioner. I have personally performed a history and physical examination on the patient. I have reviewed the advanced practitioner's documentation on the date of service referenced in note, and I agree with, and take responsibility for the plan of care. please refer to her notes for full details patient seen and examined, records reviewed by myself as well on exam, patient seen resting in bed, comfortable, sitting up, having clear liquid diet in good spirits states he feels ok overall no recurrence of hematochezia while admitted, no abdominal pain, nausea no active chest pain, shortness of breath on my exam no other symptoms VS noted and reviewed oriented x3, not in distress, speaks in sentences with no effort nor accessory muscle use normal rate, regular rhythm, no murmurs Mild rales at the bases non distended, soft, nontender Mild lower extremity edema, erythema, warmth no neuro deficits all labs, imaging noted and reviewed ASSESSMENT AND PLAN> Hematochezia Acute blood loss anemia likely secondary to underlying GI bleed Chronic Coumadin use for atrial fibrillation Hemoglobin 8.1, repeat in the morning INR 3.4, no active bleeding today, hold coumadin and Aspirin for now Anemia panel Protonix IV twice daily GI consult Acute on chronic HFpEF exacerbation Echocardiogram ordered Lasix IV ordered by cardiology service other diagnoses and plan of care as per advanced practitioner's notes Lowell Miles MD
--- NOTE | 2024-01-26 14:29 | Cardiology Consultation ---
Date of Consultation January 26, 2024 Assessment & Plan (1) Acute on chronic diastolic heart failure with preserved ejection fraction: (2) Symptomatic anemia: (3) History of bioprosthetic transcatheter aortic valve implantation (KEILA): (4) HTN (hypertension): (5) Elbow mass: Plan Patient admitted with multifactorial SOB suggestive of acute decompensated HFpEF with evidence of volume overload on exam and symptomatic anemia after recent issues with GI bleeding and anemia. Planned for outpatient colonoscopy on Monday. However, due to worsening symptoms he was referred to the ER for evaluation. History of TAVR with preserved EF per last echo in August 2022. Repeat echo ordered. Chest xray with pulm vascular congestion and hypervolemic on exam. Start IV lasix 40 mg daily Monitor I+O's. Monitor renal function and electrolytes Daily weight with standing scale. history of chronic afib s/p single lead pacemaker due to symptomatic bradycardia. Coumadin has been on hold for 2 days in anticipation of upcoming colonoscopy. Hold coumadin during admission. INR currently 3.4. No need for heparin bridge at this time. Continue metoprolol 25 mg daily Continue ASA, statin, isosorbide, and amlodipine. Hold hctz. Likely transition to loop diuretic upon discharge. Consult GI regarding ongoing anemia and GI bleed. Consider inpatient colonoscopy Monitor Hbg. Transfuse for hbg < 8. Case discussed with Dr. Carlson I spent a total of 45 minutes on the date of service in preparation, delivery, and documentation of the care provided to this patient, excluding any time spent in the performance of separately billed services. Lesli Bonilla PA-C Department of Cardiology, [facility] This chart was completed in part utilizing Speech Voice Recognition Software. Grammatical errors, random word insertions, pronoun errors, and incomplete sentences are an occasional consequence of this system due to software limitations, ambient noise, and hardware issues. Any formal questions or concerns about the content, text, or information contained within the body of this dictation should be directly addressed to the provider for clarification. Supervising Physician Co-Signing Physician Notes Attending attestation: Case reviewed with the advanced practitioner. I have personally performed a history and physical examination on the patient. I have reviewed the advanced practitioner's documentation on the date of service referenced in note, and I agree with, and take responsibility for the plan of care. Subjective: Patient seen on arrival to the second floor in room 281-1 his son and his spouse accompanied him at the bedside. Complaints as noted in the HPI. No acute distress Exam: Cardiovascular exam: Regular rhythm, 2/6 systolic murmur, 2+ lower extremity edema Data: Telemetry reveals ventricular paced rhythm in the 60s Chest x-ray reviewed, image reviewed and interpreted independently, with severe enlargement of the cardiac silhouette, mild pulmonary vascular congestion, trace pleural effusions Impression/ Plan: (1) Acute on chronic diastolic heart failure with preserved ejection fraction (right heart failure): -Agree with furosemide 40 mg IV daily (2) Symptomatic anemia: -INR elevated 3.4 despite having held Coumadin. Continue to hold Coumadin -Agree with plan to consult GI (3) History of bioprosthetic transcatheter aortic valve implantation (KEILA): -Stable findings on most recent echo, no need to repeat at present (4) HTN (hypertension): -Continue amlodipine, furosemide, isosorbide dinitrate, metoprolol (5) Elbow mass: -Right elbow mass noted, this is new over the last week and a half or so. Had an ultrasound with equivocal results. Had previously been scheduled to have outpatient MRI, but patient expresses concerns with regards to claustrophobia. Further workup to be determined I spent a total of 20 minutes coordinating, documenting, and providing care for this patient excluding time spent in the performance of separately billed services or time spent by another provider. Ron Carlson, History of Present Illness Reason for Consultation: Acute on chronic HFpEF; Anemia Requesting Physician: Talib Moreno Attending Physician: Dr. Carlson History of Present Illness Patient is an 88-year-old male who presented initially to the cardiology office today to see Dr. George and voiced concerns regarding worsening shortness of breath, fatigue, recent GI bleeding with decline in hemoglobin most recently 7.8 last week, and increased lower extremity edema Associated with abdominal bloating. He was subsequently referred to the emergency department for evaluation and treatment. Due to Recent history of GI bleeding and changes to his bowel habits, patient was scheduled for outpatient colonoscopy on Monday. He has been holding his Coumadin for the last several days. His INR remains high upon admission. Last episode of dark tarry stools was last week. However patient reports he also takes OTC iron Patient reports he has noted significant LE edema over the last few weeks as well. He has been taking his hctz daily rather than 3 days per week, with mild improvement in his swelling last week. Patient reports he has lost weight, not gained weight over the last few weeks to months due to lack of appetite. He notes SOB with minimal activity and fatigue. No chest pain. Upon arrival to ER, Hbg noted to be 8.1. Minimally improved from last week. Chest xray with pulm vascular congestion. HS troponin unremarkable. At time of consult, patient resting in bed comfortably. BP initially elevated but trending downward on my repeat. Patient reported taking his AM meds. He is unsure if he took his diuretic today. He reports no significant SOB at rest, but only with exertion. No chest pain. Ongoing edema reported. History includes: 1. Chronic atrial fibrillation 2. Mixed valvular heart disease 3. 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 Moderate to severe mitral and tricuspid insufficiency with elevated pulmonary pressures 6. Preoperative diagnostic cardiac catheterization September 12, 2018 with minor luminal irregularities 7. History of lung CA and prostate CA Allergies Allergy/AdvReac Type Severity Reaction Status Date / Time No Known Allergies Allergy Verified 01/26/24 14:50 Home Medications Medication Instructions Recorded Confirmed Type acetaminophen 325 mg tablet 325 mg PO DAILY PRN Pain 10/11/18 01/26/24 History cholecalciferol (vitamin D3) 25 1,000 unit PO DAILY 10/11/18 01/26/24 History mcg (1,000 unit) tablet leuprolide acetate (6 month) 45 mg 0 mg IM Q24W 10/11/18 01/26/24 History intramuscular syringe kit (Lupron Depot) amlodipine 2.5 mg tablet 2.5 mg PO QAM 01/26/24 01/26/24 History aspirin 81 mg tablet,delayed 81 mg PO DAILY 01/26/24 01/26/24 History release atorvastatin 20 mg tablet 20 mg PO DAILY 01/26/24 01/26/24 History hydrochlorothiazide 25 mg tablet 25 mg PO UD 01/26/24 01/26/24 History iron,carbonyl 65 mg-vitamin C 125 1 tab PO DAILY 01/26/24 01/26/24 History mg tablet,delayed release (Vitron-C) isosorbide dinitrate 20 mg tablet 20 mg PO BID 01/26/24 01/26/24 History metoprolol succinate 25 mg 25 mg PO DAILY 01/26/24 01/26/24 History tablet,extended release 24 hr omeprazole 20 mg capsule,delayed 20 mg PO QAM 01/26/24 01/26/24 History release warfarin 5 mg tablet See Rx Instructions .Route .COMPLEX 01/26/24 01/26/24 History Patient History Social History Smoking Status: Never smoker Second Hand Exposure: No; Do You Dip or Chew Tobacco: No; Tobacco Cessation Education Requested by Patient: No Hx Alcohol Use: No Hx Substance Use: No Preferred Language: Slovak Communication Ability: Effective Damage Prevention Coordinator Required: No Beliefs That Will Affect Care: None Current Living Situation: Spouse Other Information That Helps Us Care for You: No Feels Safe at Home: Yes Safety Concerns: Feels Safe At This Time Assistive Devices: CPAP and Glasses Review of Systems Review of Systems: All systems reviewed & are unremarkable except as noted in HPI & below Physical Exam Constitutional: + obese; no acute distress Respiratory: no labored breathing Auscultation: + diminished lung sounds and + crackles Cardiovascular: Rate/Rhythm: + irregularly irregular Heart Sounds: + murmur (II/ systolic murmur LSB) Vessels: + JVD Extremities: + edema (2+ edema to the LE b/l to knees) Gastrointestinal (Abdomen): Inspection/Auscultation: + abdomen distended Percussion/Palpation: abdomen soft; abdomen nontender Musculoskeletal: no cyanosis or clubbing, extremities motor strength 5/5 Neurologic: PERRL, EOMI, accommodation nl, no face palsy, no dysarthria Results & Data Vital Signs (Past 12 Hours) Vital Signs Temp Pulse Pulse Resp BP BP Pulse Ox 01/26/24 14:04 66 01/26/24 13:40 66 20 139/80 92 01/26/24 12:03 18 01/26/24 12:03 36.6 C 82 18 170/86 H 99 Laboratory Results Cardiac Enzymes 01/26/24 Range/Units 12:19 AST TNP Troponin I High Sens 14.0 (0-20) pg/ml Coagulation 01/26/24 Range/Units 12:19 PT 33.0 H (9.0-12.0) Seconds APTT 48 H (21-31) Seconds CBC 01/26/24 Range/Units 12:19 WBC 12.01 H (4.8-10.8) K/ul RBC 3.12 L (4.70-6.10) M/uL Hgb 8.1 L (14.0-18.0) g/dl Hct 25.2 L (42.0-52.0) % Plt Count 380 (130-400) K/uL Comprehensive Metabolic Panel 01/26/24 Range/Units 12:19 Sodium 135 L (136-145) mmol/L Potassium TNP Chloride 97 L (98-107) mmol/L Carbon Dioxide 30 (21-32) mmol/L BUN 26 H (6-23) mg/dl Creatinine 1.07 (0.6-1.4) mg/dl Glucose 104 H (70-99(Fasting)) mg/dl Calcium 9.0 (8.6-10.3) mg/dl AST TNP ALT 15 (7-52) U/L Alkaline Phosphatase 83 (34-104) U/L Total Protein 7.2 (6.0-8.3) gm/dl Albumin 3.5 (3.4-5.0) gm/dl Intake and Output 01/25/24 01/26/24 01/26/24 22:59 06:59 14:59 Other: Weight 86.9 kg Weight Measurement Method Chair Scale Patient Weight 01/27/24 06:59 Weight 86.9 kg Diagnostic Findings Telemetry reviewed: atrial fibrillation with ventricular pacing. Rates controlled EKG - ordered/pending (Not in MUSE) chest xray on admission: IMPRESSION: 1. Cardiomegaly with pulmonary vascular congestion. 2. Trace pleural effusions with left basilar predominant opacities suggestive of atelectasis. Medications Administered Current Inpatient Medications Sodium Chloride (Nss) 100 mls @ 15 mls/hr IV .Q6H40M PRN PRN Reason: For Transfusion Duration Stop: 01/26/24 22:48 Sodium Chloride (Nss) 50 mls @ 15 mls/hr IV .Q3H20M PRN PRN Reason: For Transfusion Duration Stop: 01/26/24 22:48
[2024-01-26] MEDS ORDERED: SODIUM CHLORIDE 0.9% 100 ML IV PRN (14:48)
[2024-01-26] MEDS ORDERED: SODIUM CHLORIDE 0.9% 50 ML IV PRN (14:48)
[2024-01-26 14:50] LABS: Potassium 3.5 mmol/L (3.5-5.1)
[2024-01-26] MEDS ORDERED: POLYETHYLENE (MIRALAX) 17 GM PACK PO PRN (16:40)
[2024-01-26] MEDS ORDERED: ONDANSETRON INJ 2 MG/ML 2 ML VIAL IV PRN (16:40)
[2024-01-26] MEDS ORDERED: ACETAMINOPHEN 325 MG TAB PO PRN (16:40)
[2024-01-26] MEDS: FUROSEMIDE 40 MG/4 ML VIAL IV ONE (17:52)
[2024-01-26] MEDS: ISOSORBIDE DINITRATE 20 MG TAB PO SCH (17:52)
[2024-01-26] MEDS: PANTOprazole 40 MG/10 ML SYR IV ONE (17:52)
--- OUTSIDE RECORDS SUMMARY | 2024-01-26 18:46 | External Medical Summary | Summary of Care ---
Author Name Unknown Organization [facility] Address [address] [place] [address] Phone [phone] Care Team Providers Care Manager Sterile Name Role Phone Heron Hutchinson MD Primary Care Provider Reason for Visit * Reason Onset Date Comments Test Results 01/17/2024 Encounter Details Date Type Department Care Team (Late st Contact Info) Description 01/17/2024 Telephone Laboratory, [place] [address] [place] [address] Sachi Woodruff PA-C [address] [place] [address] Test Results Allergies No known active allergiesdocumented as of this encounter (statuses as of 01/24/2024) Medications Medication Sig Dispensed Refills Start Date End Date Status Cholecalciferol (VITAMIN D3) 1000 units CAPSIndications:1 tablet monday, monday, monday and monday. monday, and monday 2 tablets Take by mouth. 1 capsule every other day alternating with 2 capsules Active aspirin 81 MG chewable tablet Take 1 Tab by mouth daily. 34 Tab 2 9 Active Warfarin Sodium 5 MG Oral Tablet (Coumadin)Indicati ons:Atrial fibrillation (HCC) Take 1 to 2 tablets by mouth DIRECTED by ANTICOAGULATION CLINIC 120 Tablet 3 3 Active Metoprolol Succinate ER 25 MG Oral Tablet Extended Release 24 Hour (toPROL XL)Indications:Chr onic atrial fibrillation (HCC) TAKE ONE TABLET BY MOUTH ONCE DAILY 90 Tablet 3 3 Active Isosorbide Dinitrate 20 MG Oral Tablet (Isordil)Indicatio ns:Chronic diastolic congestive heart failure, NYHA class 3 (HCC) TAKE 1 TABLET BY MOUTH TWICE DAILY 180 Tablet 3 4 Active Vitron-C 65-125 MG Oral Tablet (Iron-Vitamin C 65-125 mg per tab)Indications:Ir on deficiency anemia, unspecified iron deficiency anemia type Take 1 Tablet by mouth in the morning. 30 Tablet 1 4 Active Omeprazole 20 MG Oral Capsule Delayed Release (PriLOSEC)Indicati ons:Iron deficiency anemia due to chronic blood loss Take 1 Capsule by mouth in the morning. 1 hour before the first meal of the day. 90 Capsule 3 4 Active amLODIPine Besylate 2.5 MG Oral Tablet (Norvasc)Indicatio ns:Hypertensive heart and kidney disease with chronic diastolic congestive heart failure and stage 3a chronic kidney disease (HCC) TAKE 1 TABLET BY MOUTH ONCE DAILY IN THE MORNING 90 Tablet 3 4 Active Atorvastatin Calcium 20 MG Oral Tablet (Lipitor)Indicatio ns:Dyslipidemia, goal LDL below 100 TAKE ONE TABLET BY MOUTH ONCE DAILY 90 Tablet 3 4 Active hydroCHLOROthiazid e 25 MG Oral Tablet (Hydrodiuril)Indic ations:Chronic atrial fibrillation (HCC),S/P TAVR (transcatheter aortic valve replacement) TAKE ONE TABLET BY MOUTH 2-3 TIMES a WEEK 36 Tablet 4 Active LORazepam 0.5 MG Oral Tablet (Ativan)Indication s:Anxiety disorder due to known physiological condition One tab an hour before, repeat 15 min prior and at start of test 4 Tablet 4 Active LORazepam 0.5 MG Oral Tablet (Ativan)Indication s:Anxiety disorder due to known physiological condition One tab an hour before, repeat 15 min prior and at start of test 30 Tablet 4 01/24/20 24 Discontinu ed(Refill) documented as of this encounter (statuses as of 01/24/2024) Active Problems Problem Noted Date Diagnosed Date Chronic kidney disease, stage 3a 07/04/2022 Overview: Per CKD protocol Class 3 obesity 06/29/2022 Class 2 severe obesity due t o excess calories with serious comorbidity and body mass index (BMI) of 38.0 to 38.9 in adult 04/09/2020 Thoracic aortic ectasia 04/09/2020 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 failure and stage 3a chronic kidney disease 02/03/2020 Overview: >>OVERVIEW FOR HYPERTENSIVE KIDNEY DISEASE WITH STAGE 3A CHRONIC KIDNEY DISEASE WRITTEN ON 01/16/2024 12:12 PM BY PROCESS, AUTOMATED EPIC Per CKD protocol Status post total left knee replacement 10/22/19 Chronic diastolic congestive heart failure, NYHA class 3 04/01/2019 Atherosclerotic heart diseas e of [place] coronary artery without angina pectoris 04/01/2019 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 Overview: ICD-10 update of inactive term documented as of this encounter (statuses as of 01/24/2024) Resolved Problems Problem Noted Date Diagnosed Date Resolved Date Prediabetes 12/07/2020 01/11/2024 Overview: Per Prediabetes protocol Prediabetes 06/01/2020 11/10/2020 Overview: Per Prediabetes protocol Idioventricular rhythm 11/13/201811/15 Hypertensive kidney disease with chronic kidney disease stage III 09/24/2018 02/06/2020 Overview: Per CKD protocol Kidney disease, chronic, sta ge III (GFR 30-59 ml/min) 09/05/2017 10/04/2018 Overview: Per CKD protocol #1 Atrial fibrillation 09/01/2015 03/26/20 18 Viral URI with cough 08/15/2014 018 [employer] Research Other*[id number] 07/12/2010 07/12/2013 Overview: PROJECT: #[id number], SPONSOR: Owen, PI: Ezio Johnson MD SUMMARY: Observational registry to better understand how patients with A-Fib are cared for (utilization, effectiveness, safety of antithrombotic therapy for stroke prevention). Patients are recruited through an invitational letter. Study data will be collected (by research staff) from the EHR for at least 2 years on consenting patients at approximate 6-month intervals when seen at routine clinic visits. There is no study intervention. A BPA will fire in office visit notes and is connected to a flowsheet which has 2-4 questions that must be answered by the visit provider before the encounter can be closed. CONTACT: Lu Neely, Air Export Operations Agent Chronic rhinitis 01/18/2010 08/15/2014 Elevated prostate specific antigen (PSA) 01/16/2002 03/26/2018 Benign prostatic hyperplasia 01/09/2002 03/26/2018 Overview: ICD-10 update of inactive term ICD-10 update of inactive term Anticoagulation management encounter 10/12/2001 03/26/2018 Open wound of forearm 09/01/20002017 Atrial fibrillation 09/25/1995 03/26/20 18 Dyslipidemia, goal to be determined 03/01/2013 documented as of this encounter (statuses as of 01/24/2024) Immunizations Name Administration Dates Next Due COVID-19 mRNA, LNP-s, No Pre serve, 2-Dose Series (Moderna) 05/29/2020,05/01/2020 COVID-19, mRNA, LNP-s, PF, B ooster, 100mcg/0.5mg (Moderna) 02/06/2021 Covid-19, Mrna, Lnp-s, Pf, B ivalent, 30 Mcg, IM, 12 yrs and above (Pfizer) 04/17/2022 Pneumococcal Conjugate Vacc, 13 Valent (Prevnar) 08/28/2014 Pneumococcal Polysaccharide PPV23 (Pneumovax) 09/20/2011,01/09/2002 Season Influenza, Quad, PF, Adjuvanted, 65+ Yrs, IM (FLUAD) 02/18/2023 Seasonal Influenza Vac., MDV , IM, 0.5 mL (Fluzone) 12/17/2016,12/16/2015,04/30/2014,03/22,03/17/2011,01/14/2010,02/25/2009 ,04/18/2008,01/13/2005,02/25/2003,12/25,03/08/2001,03/07/2000 Seasonal Influenza, High Dos e, Trivalent, PF, IM (Fluzone HD) 12/28/2023 Seasonal Influenza, MDCK, Tr ivalent, PF, (Flucelvax) 04/02/2013 Seasonal Influenza, PF, 6 M & above, IM , (FluLaval or Fluzone) 12/25/2019,01/22/2019,03/26/2018 Seasonal Influenza, Quadriva lent Hd (Fluzone Hd) 12/07/2022,12/28/2021,12/04/2020 Seasonal Influenza, Quadriva lent, No Preserve, IM 01/22/2019,02/23/2015 TD - Tetanus/Diptheria (ADULT) 12/30/2002 TD, Preservative Free 06/29/2022 TDAP (age 10 and older)(Boostrix) 09/20/2012 Varicella Zoster Vaccine (Adult) 10/24/2011 Zoster Vaccine Recombinant (Shingrix) 10/17/2017 documented as of this encounter Social History Tobacco Use Types Packs/Day Years Used Date Smoking Tobacco: Never Smokeless Tobacco: Never Alcohol Use Standard Drinks/Week Comments No 0 (1 standard drink = 0.6 oz pur e alcohol) PHQ-2 Answer Date Recorded PHQ Adult Total Score 0 12/28/2023 Hunger Vital Sign Answer Date Recorded Worried About Running Out of Food in the Last Ye ar Never true 11/21/2018 Ran Out of Food in the Last Year Never true 11/21/2018 Utilities Answer Date Recorded Do you have trouble paying y our heating, water, or electric bill? (Adult - for ages 18 years and over) Not on file 09/12/2023 Is your family able to pay t he heat, water, or electric bill? (Household - for ages 0-17 years) Not on file 09/12/2023 Does your family have access to good internet? (Household - for ages 0-17 years) Not on file 09/12/2023 Social Connections Answer Date Recorded How often do you feel lonely or isolated from those around you? (Adult - for ages 18 years and over) Not on file 09/12/2023 Sex and Gender Information Value Date Recorded Sex Assigned at Male 09/24/2018 8:02 AM EDT Gender Identity Male 09/24/2018 8:02 AM EDT Sexual Orientation Straight 09/24/2018 8: 02 AM EDT Job Start Date Occupation Industry Not on file Not on file Not on file documented as of this encounter Functional Status Functional Status Response Date of Assess ment Are you deaf or do you have serious difficulty h earing? No 10/22/2019 Are you blind or do you have serious difficulty seeing, even when wearing glasses? No 10/22/2019 Do you have serious difficul ty walking or climbing stairs? (5 years old or older) Yes 10/22/2019 Do you have difficulty dress ing or bathing? (5 years old or older) No 10/22/2019 Because of a physical, menta l, or emotional condition, do you have difficulty doing errands alone such as visiting a doctor s office or shopping? (15 years old or older) No 10/22/19 20 Cognitive Status Response Date of Assessm ent Because of a physical, menta l, or emotional condition, do you have serious difficulty concentrating, remembering, or making decisions? (5 years old or older) No 10/22/2019 documented as of this encounter Miscellaneous Notes * Addendum Note - Varsha Queen LPN - 01/24/2024 2:22 PM EDTAddended by: VARSHA QUEEN on: 01/24/2024 02:22 PM Modules accepted: Orders * Telephone Encounter - Varsha Queen LPN - 01/24/2024 2:21 PM EDT Prescription called into the pharmacist at [facility]. * Addendum Note - Sachi Woodruff PA-C - 01/24/2024 1:47 PM EDTAddended by: SACHI WOODRUFF on: 01/24/2024 01:47 PM Modules accepted: Orders * Telephone Encounter - Sachi Woodruff PA-C - 01/24/2024 1:47 PM EDT Won't go escribe - please call in Anxiety disorder due to known physiological condition (Primary) - LORazepam 0.5 MG Oral Tablet (Ativan); One tab an hour before, repeat 15 min prior and at start of test Sachi Woodruff PA-C 01/24/2024 1:47 PM * Telephone Encounter - Tamra Madden LPN - 01/24/2024 8:29 AM EDT See MyG message * Telephone Encounter - Sachi Woodruff PA-C - 01/18/2024 8:38 AM EDT My understanding is that they go in from the waist up The alternative would be to see a surgeon to see if he is willing to biopsy without imaging - I cannot guarantee that they will Sachi Woodruff PA-C * Telephone Encounter - Vanessa Bro LPN - 01/18/2024 8:03 AM EDT Patients calling. Given message. present. Verbalized understanding. Willing to have the MRI IF his whole body doesn't have to go into the machine. Please advise. * Telephone Encounter - Bee Rosario LPN - 01/17/2024 5:52 PM EDT Left generic message on answering machine asking patient to return our call. * Telephone Encounter - Sachi Woodruff PA-C - 01/17/2024 5:00 PM EDT Please let them know, the ultrasound could not determine if this was a node or a growth (rapid can mean cancer) They suggested an mri Is he willing? Sachi Woodruff PA-C * Telephone Encounter - Juliette Selby OSA - 01/17/2024 11:21 AM EDT Hello- The radiologist discovered an unexpected or indeterminate finding on Macario Oliver ([id number]) and asks that you review the following report. Study Type: US EXTREMITY, NON-VASCULAR LIMITED Date of Study: 01/17/2024 IMPRESSION Indeterminate solid mass at the lateral aspect of the right elbow, with internal vascularity. MRI of the right elbow (with and without IV contrast) is recommended for further characterization. Please respond to this encounter to acknowledge receipt of this message and take responsibility to ensure this report is reviewed. Thank you, CEE Pendleton Client Service [facility] documented in this encounter Plan of Treatment Upcoming Encounters Date Type Department Care Team (Latest Contact Info) Description 01/26/2024 11:00 AM EDT Office Visit Cardiology, [facility] [address] [address] Diego George MD [address] [place] [address] 01/29/2024 11:52 AM EST Hospital Encounter OR [facility], Operating Room, [facility] - 4th Floor [address] [place] [address] Chad Durham MD [address] [address] 01/29/2024 11:52 AM EST - 01/29/2024 12:52 PM EST Surgery [facility], Operating Room, [facility] [address] [facility] [address] Chad Durham MD [address] [address] COLONOSCOPY FLEXIBLE PROXIMAL DIAGNOSTIC 02/07/2024 8:30 AM EST [facility] [address] [place] [address] [facility] [address] [place] [address] 09/17/2024 10:15 AM EDT Office Visit Urology, [facility] [address] [address] Zeus Davidson MD [address] [place] [address] Scheduled Procedures Name Priority Associated Diagnoses Date/Ti nh COLONOSCOPY FLEXIBLE PROXIMA L DIAGNOSTIC Symptomatic anemia 01/29/2024 11:52 AM EST ESOPHAGOGASTRODUODENOSCOPY ( EGD), FLEXIBLE, TRANSORAL, DIAGNOSTIC Symptomatic anemia 01/29/2024 11:52 AM EST Health Maintenance Due Date Last Done Comments Adult Wellness Visit 06/01/2003 Albumin/Creatinine Ratio 12/21/2022 022, 10/11/2019, 05/22/2018 COVID-19 Vaccine ( season) 2023 04/17/2022, 02/06/2021, 05/29/2020, Additional history exists CKD PHOS USE SMARTSET 94468 12/30/202307/2022, 12/21/2021, 09/12/2018, Additional history exists Depression Screening 12/27/2024 12/28/2023 Zoster Vaccines (2 of 2) 12/27/2024 10/17/2017, 09/26 Postponed from 12/12/2017 (Patient Declined After Education) CKD HGB USE SMARTSET 37314 01/22/202501/22, 12/28/2023, 12/28/2023, Additional history exists DTap/Tdap Vaccines (3 - Td or Tdap) 06/29/2032 06/29/2022, 09/20/2012, 12/30/2002 Pneumococcal Vaccine: 65+ Years Completed 08/28/2014, 09/20/2011, 01/09/2002 Influenza Vaccine (FLU shot) Completed 12/28/2023, 02/18/2023, 12/07/2022, Additional history exists HPV (Gardasil) Vaccine Aged Out No lo nger eligible based on patient's age to complete this topic Hepatitis B Vaccine Aged Out No longe r eligible based on patient's age to complete this topic MENINGOCOCCAL (MENACTRA/MENVEO) Aged Out No longer eligible based on patient's age to complete this topic documented as of this encounter Medical Devices Implanted Type Area Senior Radiation Protection Technician Device Identifier Shelf Expiration Date Model / Serial / Lot Baseplate #6 Tritanium - [id number] Implanted:Qty: 1 on 10/22/2019 by Sammy Higgins, at OR [facility] Left: Knee LISSET : ORTHOPAEDICS 07/23/2024 5536-[id number] / / [id number] Knee Triathlon Bead No Cuong L 6 - [id number] Implanted:Qty: 1 on 10/22/2019 by Sammy Higgins, DO at OR [facility] Left: Knee LISSET : ORTHOPAEDICS 07/09/2024 [id number]-601 / / [id number] Patella Symmetric S33mm 9mm - [id number] Implanted:Qty: 1 on 10/22/2019 by Sammy Higgins, DO at OR [facility] Left: Knee LISSET : ORTHOPA[employer]ICS 10/29/2023 [id number]-[id number] / / [id number] Triathlon X3 Tibial Bearing Insert Cs Ramirez 6 Typ Cs Thkns 10mm Implanted:Qty: 1 on 10/22/2019 by Sammy Higgins, DO at OR [facility] Left: Knee 01/07/2024 [id number]-[id number] / / [id number] documented as of this encounter Visit Diagnoses Diagnosis Anxiety disorder due to known physiological condition- Primary Anxiety state, unspecified Symptomatic anemia documented in this encounter Advance Directives Documents on File Type Date Recorded Patient Director Of The Biophysics Facility Expl anation Advance Directives and Livin g Will 05/25/2017 LIVING WILL Power of Dough Brake Machine Operator 05/25/2017 POWER OF A TTORNEY * Full Code (Latest Code Status on File) Date Activated Date Inactivated Comments 10/22/2019 1:06 PM 10/23/2019 7:15 PM This order r eflects the patients wishes and were consensually agreed upon. Question Answer Comments Discussion of Advance Directives occurred with: Patient Does the patient have a Living Will? No Does the patient have Health Care Power of Attor tristan? No * Full Code Date Activated Date Inactivated Comments 11/13/2018 3:39 PM 11/15/2018 5:36 PM This order r eflects the patients wishes and were consensually agreed upon. Question Answer Comments Discussion of Advance Directives occurred with: Patient Does the patient have a Living Will? No Does the patient have Health Care Power of Attor tristan? No * Full Code Date Activated Date Inactivated Comments 11/06/2018 2:33 PM 11/08/2018 4:02 PM This order r eflects the patients wishes and were consensually agreed upon. Care Teams Manager Sterile Relationship Specialty Start Date End Date Heron Hutchinson MD [address] [place] [address] PCP - General 03/28/1997 documented as of this encounter
--- OUTSIDE RECORDS SUMMARY | 2024-01-26 18:47 | External Medical Summary | Summary of Care ---
Author Name Unknown Organization [facility] Address [address] [facility] [address] Phone [phone] Care Team Providers Care Autotransfusionist Name Role Phone Heron Hutchinson MD Primary Care Provider [phone] Reason for Visit * Reason Comments Dosage Adjustment In Person (Anticoag Cl inic) Encounter Details Date Type Department Care Team (Latest Contact Info) Description 01/23/2024 7:40 AM EDT Anticoagulation Pharmacy, [address] [address] [place] [facility] [address] [place] [address] Anticoagulation management encounter*; Chronic atrial fibrillation (HCC); S/P TAVR (transcatheter aortic valve replacement); Anemia, unspecified type Allergies No known active allergiesdocumented as of this encounter (statuses as of 01/23/2024) Medications Medication Sig Dispensed Refills Start Date End Date Status Cholecalciferol (VITAMIN D3) 1000 units CAPSIndications:1 tablet monday, monday, monday and monday. monday, and monday 2 tablets Take by mouth. 1 capsule every other day alternating with 2 capsules Active aspirin 81 MG chewable tablet Take 1 Tab by mouth daily. 34 Tab 2 12/07/2018 Active Warfarin Sodium 5 MG Oral Tablet (Coumadin)Indicati ons:Atrial fibrillation (HCC) Take 1 to 2 tablets by mouth DIRECTED by ANTICOAGULATION CLINIC 120 Tablet 3 01/20/2023 Active Metoprolol Succinate ER 25 MG Oral Tablet Extended Release 24 Hour (toPROL XL)Indications:Chr onic atrial fibrillation (HCC) TAKE ONE TABLET BY MOUTH ONCE DAILY 90 Tablet 3 02/10/2023 Active Isosorbide Dinitrate 20 MG Oral Tablet (Isordil)Indicatio ns:Chronic diastolic congestive heart failure, NYHA class 3 (HCC) TAKE 1 TABLET BY MOUTH TWICE DAILY 180 Tablet 3 06/27/2023 Active Vitron-C 65-125 MG Oral Tablet (Iron-Vitamin C 65-125 mg per tab)Indications:Ir on deficiency anemia, unspecified iron deficiency anemia type Take 1 Tablet by mouth in the morning. 30 Tablet 1 12/18/2023 Active Omeprazole 20 MG Oral Capsule Delayed Release (PriLOSEC)Indicati ons:Iron deficiency anemia due to chronic blood loss Take 1 Capsule by mouth in the morning. 1 hour before the first meal of the day. 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) TAKE 1 TABLET BY MOUTH ONCE DAILY IN THE MORNING 90 Tablet 3 01/01/2024 Active Atorvastatin Calcium 20 MG Oral Tablet (Lipitor)Indicatio ns:Dyslipidemia, goal LDL below 100 TAKE ONE TABLET BY MOUTH ONCE DAILY 90 Tablet 3 01/10/2024 Active hydroCHLOROthiazid e 25 MG Oral Tablet (Hydrodiuril)Indic ations:Chronic atrial fibrillation (HCC),S/P TAVR (transcatheter aortic valve replacement) TAKE ONE TABLET BY MOUTH 2-3 TIMES a WEEK 36 Tablet 01/09/2024 Active documented as of this encounter (statuses as of 01/23/2024) Active Problems Problem Noted Date Diagnosed Date [...] Status post total left knee replacement 10/22/19 20 Chronic diastolic congestive heart failure, NYHA class 3 04/01/2019 Atherosclerotic heart diseas e of [place] coronary artery without angina pectoris 04/01/2019 Secondary [...] BIPAP Plus set at 12 cwp AHP salvage determiner current use of 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 Overview: ICD-10 update of inactive term documented as of this encounter (statuses as of 01/23/2024) Resolved Problems Problem Noted Date Diagnosed Date [...] URI with cough 08/15/2014 018 ORBIT-[employer] Research Other*[id number] 07/12/2010 07/12/2013 Overview: PROJECT: #[id number], SPONSOR: Owen, PI: Ezio Johnson MD SUMMARY: [...] encounter can be closed. CONTACT: Lu Neely, X Ray Technologist Chronic rhinitis 01/18/2010 08/15/2014 Elevated prostate specific antigen (PSA) 01/16/2002 03/26/2018 Benign prostatic hyperplasia 01/09/2002 03/26/2018 Overview: ICD-10 update of inactive term ICD-10 update of inactive term Anticoagulation management encounter 10/12/2001 03/26/2018 Open wound of forearm 09/01/20002017 Atrial fibrillation 09/25/1995 03/26/20 18 Dyslipidemia, goal to be determined 03/01/2013 documented as of this encounter (statuses as of 01/23/2024) Immunizations Name Administration Dates Next Due COVID-19 mRNA, LNP-s, No Pre serve, 2-Dose Series (Moderna) 05/29/2020,05/01/2020 COVID-19, mRNA, LNP-s, PF, B ooster, 100mcg/0.5mg (Moderna) 02/06/2021 Covid-19, Mrna, Lnp-s, Pf, B ivalent, 30 Mcg, IM, 12 yrs and above (Combined Effort) 04/17/2022 Pneumococcal Conjugate Vacc, 13 Valent (Prevnar) 08/28/2014 Pneumococcal Polysaccharide PPV23 (Pneumovax) 09/20/2011 Season Influenza, Quad, PF, Adjuvanted, 65+ Yrs, IM (FLUAD) 02/18/2023 Seasonal Influenza Vac., MDV , IM, 0.5 mL (Fluzone) 12/17/2016,12/16/2015,04/30/2014,03/22,03/17/2011,01/14/2010,02/25/2009 ,04/18/2008 Seasonal Influenza, High Dos e, Trivalent, PF, IM (Fluzone HD) 12/28/2023 Seasonal Influenza, MDCK, Tr ivalent, PF, (Flucelvax) 04/02/2013 Seasonal Influenza, PF, 6 M & above, IM , (FluLaval or Fluzone) 12/25/2019,01/22/2019,03/26/2018 Seasonal Influenza, Quadriva lent Hd (Fluzone Hd) 12/07/2022,12/28/2021,12/04/2020 Seasonal Influenza, Quadriva lent, No Preserve, IM 01/22/2019,02/23/2015 TD, Preservative Free 06/29/2022 TDAP (age 10 [...] No 10/22/2019 documented as of this encounter Progress Notes * Taty Marte, [facility] - 01/23/2024 7:46 AM EDT Images from the original note were not included. Medication Therapy Disease Management - Anticoagulation Patient: Macario Oliver | : 1935 Subjective Patient-Reported Symptoms: Patient Findings Positives: Upcoming invasive procedure (next monday - see below for instructions) Negatives: Signs/symptoms of thrombosis, Signs/symptoms of bleeding, Change in health, Change in alcohol use, Change in activity, Missed doses, Extra doses, Change in medications, Change in diet/appetite, Bruising Objective Current Warfarin Dose As of 01/23/2024 Warfarin maintenance plan: 2.5 mg (5 mg x 0.5) every Mon, Wed, Fri; 5 mg (5 mg x 1) all other days INR Result As of 01/23/2024 INR goal: 1.5-2.0 INR used for dosin.7 (01/23/2024) Assessment & Plan Warfarin Plan As of 01/23/2024 Full warfarin instructions: 01/22: Hold; 01/23: Hold; 01/24: Hold; 01/25: Hold; 01/26: Hold; 01/27: Hold; 01/28: 5 mg; Otherwise 5 mg every Clemencia; 2.5 mg all other days Next INR check: 02/07/2024 Repeat PT/INR in 10 day(s) Weekly dose: decreased Additional Dosing Information: Description Patient is having a colonoscopy and endoscopy on 01/28. Diagosis for coumadin therapy is afib. No hxof recent DVT, PE, MVR, SD or CVA. CHADS2 score of 4. Patient will take their last dose of tvcsoyve41/29, then restart coumadin the evening of the procedure at the surgeon's discretion. I spent a total of 10-19 minutes (exact time 14 mins) on the date of service in preparation, delivery, and documentation of the care provided to Macario Oliver excluding any time spent in the performance of separately billed services or time spent by another provider/QHP. Taty Marte [facility] Clinical Pharmacist 01/23/2024, 7:46 AM documented in this encounter Plan of Treatment Upcoming Encounters Date Type Department Care Team (Latest Contact Info) Description 01/26/2024 11:00 AM EDT Office Visit Cardiology, [facility] [address] [address] Diego George MD [address] [address] 01/29/2024 12:34 PM EST Hospital Encounter OR [facility], Operating Room, [facility] - 4th Floor [address] [place] [phone] Chad Durham MD [address] [place] [address] 01/29/2024 12:34 PM EST - 01/29/2024 1:34 PM EST Surgery OR [facility], Operating Room, [facility] - 4th Floor [address] [place] [place] [phone] Chad Durham MD [address] [place] [address] COLONOSCOPY FLEXIBLE PROXIMAL DIAGNOSTIC 02/07/2024 8:30 AM EST Anticoagulation Pharmacy, [place] [address] [facility] [place] [address] [place], [facility] [address] [facility] [place] [address] 09/17/2024 10:15 AM EDT Office Visit Urology, [facility] [address] [place] [address] Zeus Davidson MD [address] [facility] [place] [address] Pending Results Name Type Priority Associated Diagnoses Date /Time MAGNESIUM Lab Routine Chronic atrial fibrillation (HCC) 01/23/2024 8:02 AM EDT CBC Lab Routine Anemia, unspecified type 01/23/2024 8:02 AM EDT Scheduled Procedures Name Priority Associated Diagnoses Date/Ti me COLONOSCOPY FLEXIBLE PROXIMA L DIAGNOSTIC Symptomatic anemia 01/29/2024 12:34 PM EST ESOPHAGOGASTRODUODENOSCOPY ( EGD), FLEXIBLE, TRANSORAL, DIAGNOSTIC Symptomatic anemia 01/29/2024 12:34 PM EST Health Maintenance Due Date Last Done Comments Adult Wellness Visit 06/01/2003 Albumin/Creatinine Ratio 12/21/2022 022, 10/11/2019, 05/22/2018 COVID-19 Vaccine ( season) 2023 04/17/2022, 02/06/2021, 05/29/2020, Additional history exists CKD PHOS USE SMARTSET 25028 12/30/2023 10/0 07/2022, 12/21/2021, 09/12/2018, Additional history exists CKD HGB USE SMARTSET 85392 12/27/202412/27, 12/28/2023, 12/15/2023, Additional history exists Depression Screening 12/27/2024 12/28/2023 Zoster Vaccines (2 of 2) 12/27/2024 10/17/2017, 09/26 Postponed from 12/12/2017 (Patient Declined After Education) DTap/Tdap Vaccines (3 - Td or Tdap) [...] this encounter Medical Devices Implanted Type Area Bench Technician Device Identifier Shelf Expiration Date Model / Serial / Lot Baseplate #6 Tritanium - [id number] Implanted:Qty: 1 on 10/22/2019 by Sammy Higgins DO at OR [facility] Left: Knee LISSET : ORTHOPAEDICS 07/23/2024 5536-B-600 / / [id number] Knee Triathlon Bead No Cuong L 6 - [id number] Implanted:Qty: 1 on 10/22/2019 by Sammy Higgins DO at OR [facility] Left: Knee LISSET : ORTHOPAEDICS 07/09/2024 5517-F-601 / / [id number] Patella Symmetric S33mm 9mm - [id number] Implanted:Qty: 1 on 10/22/2019 by Sammy Higgins DO at OR [facility] Left: Knee LISSET : ORTHOPAEDICS 10/29/2023 5556-L-339 / / [id number] Triathlon X3 Tibial Bearing Insert Cs Ramirez 6 Typ Cs Thkns 10mm Implanted:Qty: 1 on 10/22/2019 by Sammy Higgins DO at OR [facility] Left: Knee 01/07/2024 5531-G-610 -E / / [id number] documented as of this encounter Procedures Procedure Name Priority Date/Time Associated Diagnosis Comments INR FINGERSTICK, POINT OF CARE STAT 01/23/2024 7:50 AM EDT Chronic atrial fibrillation (HCC) S/P TAVR (transcatheter aortic valve replacement) Anticoagulation management encounter documented in this encounter Results * INR FINGERSTICK, POINT OF CARE (01/23/2024 7:50 AM EDT) Fingerstick INR 3.7 INR 7:55 AM EDT [facility] Blood 01/23/2024 7:50 AM EDT 01/23/2024 7:55 AM EDT Narrative [facility] 56-01 - 01/23/2024 7:55 AM EDT Therapeutic ranges for non-operative patients: Prophylaxsis/treatment of DVT: (Range:2.0-3.0) Treatment of pulmonary embolism:(Range:2.0-3.0) Prevention of systemic embolism from: -tissue heart valves -acute myocardial infarction -valvular heart disease -atrial fibrillation (Range: 2.0-3.0) Mechanical prosthetic valves: (Range: 2.5-3.5) Taty Marte [facility] LAB POINT OF CARE TEST DOCKED DEVICE UNSOLICITED RESULTS [facility] [address] [place] [address] documented in this encounter Visit Diagnoses Diagnosis Anticoagulation management encounter- Primary Encounter for therapeutic drug monitoring Chronic atrial fibrillation (HCC) Atrial fibrillation S/P TAVR (transcatheter aortic valve replacement) Heart valve replaced by other means Anemia, unspecified type Symptomatic anemia documented in this encounter Advance Directives Documents on File Type Date Recorded Patient Plywood Layup Line Core Layer Expl anation Advance Directives and Livin g Will 05/25/2017 LIVING WILL Power of Aviation Electrician 05/25/2017 POWER OF A TTORNEY * Full [...] and were consensually agreed upon. Care Teams Autotransfusionist Relationship Specialty Start Date End Date Heron Hutchinson MD [address] [place] [address] PCP - General 03/28/1997 documented as of this encounter"
--- OUTSIDE RECORDS SUMMARY | 2024-01-26 18:47 | External Medical Summary | Summary of Care ---
Author Name Unknown Organization [facility] Address [address] [facility] [place] [address] Phone [phone] Care Team Providers Care Public Health Doctor Name Role Phone Heron Hutchinson MD Primary Care Provider [phone] Reason for Visit * Reason Comments Outpatient Testing Encounter Details Date Type Department Care Team (Late st Contact Info) Description 01/23/2024 8:10 AM EDT Laboratory Laboratory, [place] [address] [place] [phone] [place], [facility] [address] [place] [address] Arrived Allergies No known active allergiesdocumented as of [...] 3 04/01/2019 Atherosclerotic heart diseas e of [place] coronary artery without angina pectoris 04/01/2019 Secondary [...] BIPAP Plus set at 12 cwp AHP assisted current use of 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 Overview: ICD-10 [...] URI with cough 08/15/2014 018 [employer]BIT-[employer] Research Other*[id number] 07/12/2010 07/12/2013 Overview: PROJECT: #[id number], SPONSOR: Owen, PI: Ezio Johnson MD SUMMARY: [...] encounter can be closed. CONTACT: Lu Neely, Commercial Housekeeper Chronic rhinitis 01/18/2010 08/15/2014 Elevated prostate specific [...] No 10/22/2019 documented as of this encounter Plan of Treatment Upcoming Encounters Date Type Department Care Team (Latest Contact Info) Description 01/26/2024 11:00 AM EDT Office Visit Cardiology, [facility] [address] [address] Diego George MD [address] [address] 01/29/2024 12:34 PM EST Hospital Encounter OR [facility], Operating Room, [facility] - 4th Floor [address] [place] [address] Chad Durham MD [address] [address] 01/29/2024 12:34 PM EST - 01/29/2024 1:34 PM EST Surgery OR [facility], Operating Room, [facility] - 4th Floor [address] [place] [phone] Chad Durham MD [address] [place] [address] COLONOSCOPY FLEXIBLE PROXIMAL DIAGNOSTIC 02/07/2024 8:30 AM EST [facility] Pharm[facility], [place] [address] [facility] [address] [place], [facility] [address] [facility] [place] [address] 09/17/2024 10:15 AM EDT Office Visit Urology, [facility] [address] [facility] [place] [address] Zeus Davidson MD [address] [place] [address] Scheduled Procedures Name Priority Associated Diagnoses Date/Ti me COLONOSCOPY FLEXIBLE PROXIMA L DIAGNOSTIC Symptomatic anemia 01/29/2024 12:34 PM EST ESOPHAGOGASTRODUODENOSCOPY ( EGD), FLEXIBLE, TRANSORAL, DIAGNOSTIC Symptomatic anemia 01/29/2024 12:34 PM EST Health Maintenance Due Date Last Done Comments Adult Wellness Visit 06/01/2003 Albumin/Creatinine Ratio 12/21/202212/21/2 022, 10/11/2019, 05/22/2018 COVID-19 Vaccine ( season) 2023 04/17/2022, 02/06/2021, 05/29/2020, Additional history exists CKD PHOS USE SMARTSET 91911 12/30/202307/2022, 12/21/2021, 09/12/2018, Additional history exists CKD HGB USE SMARTSET 02003 12/27/202412/27, 12/28/2023, 12/15/2023, Additional history exists Depression [...] this encounter Medical Devices Implanted Type Area Frame Catcher Device Identifier Shelf Expiration Date Model / Serial / Lot Baseplate #6 Tritanium - [id number] Implanted:Qty: 1 on 10/22/2019 by Sammy Higgins DO at OR [facility] Left: Knee LISSET : ORTHOPAEDICS 07/23/2024 5536-B-600 / / [id number] Knee Triathlon Bead No Cuong L 6 - [id number] Implanted:Qty: 1 on 10/22/2019 by Sammy Higgins DO at OR [facility] Left: Knee LISSET : ORTHOPAEDICS 07/09/2024 5517-F-601 / / [id number] Patella Symmetric S33mm 9mm - [id number] Implanted:Qty: 1 on 10/22/2019 by Sammy Higgins DO at OR [facility] Left: Knee LISSET : ORTHOPAEDICS 10/29/2023 5556-L-339 / / [id number] Triathlon X3 Tibial Bearing Insert Cs Ramirez 6 Typ Cs Thkns 10mm Implanted:Qty: 1 on 10/22/2019 by Sammy Higgins DO at OR [facility] Left: Knee 01/07/2024 5531-G-610 -E / / [id number] documented as of this encounter Advance Directives Documents on File Type Date Recorded Patient Mobile Ui/Ux Designer Expl anation Advance Directives and Livin g Will 05/25/2017 LIVING WILL Power of Hospital Aide 05/25/2017 POWER OF A TTORNEY * Full [...] and were consensually agreed upon. Care Teams Public Health Doctor Relationship Specialty Start Date End Date Heron Hutchinson MD [address] [facility] [address] PCP - General 03/28/1997 documented as of this encounter
--- OUTSIDE RECORDS SUMMARY | 2024-01-26 18:47 | External Medical Summary | Summary of Care ---
Author Name Unknown Organization [facility] Address [address] [facility] [place] [address] Phone [phone] Care Team Providers Care Fourth Mate Name Role Phone Heron Hutchinson MD Primary Care Provider [phone] Reason for Visit * Reason Onset Date Comments Advice 01/12/2024 INR Encounter Details Date Type Department Care Team (Late st Contact Info) Description 01/12/2024 Telephone [facility] [address] [place] [address] Heron Hutchinson MD [address] [place] [address] Advice (INR) Allergies No known active allergiesdocumented as of this encounter (statuses as of 01/22/2024) Medications Medication Sig Dispensed Refills Start Date [...] as of this encounter (statuses as of 01/22/2024) Active Problems Problem Noted Date Diagnosed Date [...] 3 04/01/2019 Atherosclerotic heart diseas e of [place] coronary artery without angina pectoris 04/01/2019 Secondary [...] BIPAP Plus set at 12 cwp AHP group home current use of 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 Overview: ICD-10 update of inactive term documented as of this encounter (statuses as of 01/22/2024) Resolved Problems Problem Noted Date Diagnosed Date [...] URI with cough 08/15/2014 018 ORBIT-[employer] Research Other*[id number] 07/12/2010 07/12/2013 Overview: PROJECT: #[id number], SPONSOR: Owen, PI: Ezio Johnson MD SUMMARY: [...] before the encounter can be closed. CONTACT: Ziyad Neely, Physiologist Chronic rhinitis 01/18/2010 08/15/2014 Elevated prostate specific antigen (PSA) 01/16/2002 03/26/2018 Benign prostatic hyperplasia 01/09/2002 03/26/2018 Overview: ICD-10 update of inactive term ICD-10 update of inactive term Anticoagulation management encounter 10/12/2001 03/26/2018 Open wound of forearm 09/01/20002017 Atrial fibrillation 09/25/1995 03/26/20 18 Dyslipidemia, goal to be determined 03/01/2013 documented as of this encounter (statuses as of 01/22/2024) Immunizations Name Administration Dates Next Due COVID-19 [...] as of this encounter Miscellaneous Notes * Telephone Encounter - Tosha Toth OSA - 01/22/2024 9:32 AM EDT Colon/egd frances'd for 01/28. * Telephone Encounter - Consuelo Obregon LPN - 01/12/2024 12:07 PM EDT Pt's son Ziyad is calling. Just spoke with scheduling at [facility] to set up colonoscopy and endoscopy. They have an opening for Monday but the surgeon recommended that the pt's INR should be between 1.5 and 2 prior to the procedure. Called [facility]TM, spoke with Anjali and transferred the call to her. * Telephone Encounter - Radha Smiley OSA - 01/12/2024 12:04 PM EDT Reason for patient's call: Pts son calling in regards to patients INR and upcoming gastro procedure. Caller was transferred to Consuelo at the nurse line. documented in this encounter Plan of Treatment Upcoming Encounters Date Type Department Care Team (Latest Contact Info) Description 01/23/2024 7:40 AM EDT Anticoagulation Pharmacy, [address] [address] [facility] [address] [place] [address] 01/26/2024 11:00 AM EDT Office Visit Cardiology, [facility] [address] [address] Diego George MD [address] [address] 01/29/2024 12:34 PM EST Hospital Encounter OR [facility], Operating Room, [facility] - 4th Floor [address] [place] [phone] Chad Durham MD [address] [address] 01/29/2024 12:34 PM EST - 01/29/2024 1:34 PM EST Surgery OR [facility], Operating Room, [facility] - 4th Floor [address] [facility] [phone] Chad Durham MD [address] [facility] [place] [address] COLONOSCOPY FLEXIBLE PROXIMAL DIAGNOSTIC 03/19/2024 3:30 PM EST Office Visit Cardiology, [facility] [address] [facility] [place] [address] Tahira Jones PA-C [address] [facility] [place] [id number] 09/17/2024 10:15 AM EDT Office Visit Urology, [facility] [address] [facility] [place] [address] Zeus Davidson MD [address] [facility] [place] [phone] Scheduled Procedures Name Priority Associated Diagnoses Date/Ti me COLONOSCOPY FLEXIBLE PROXIMA L DIAGNOSTIC Symptomatic anemia 01/29/2024 12:34 PM EST ESOPHAGOGASTRODUODENOSCOPY ( EGD), FLEXIBLE, TRANSORAL, DIAGNOSTIC Symptomatic anemia 01/29/2024 12:34 PM EST Health Maintenance Due Date Last Done Comments Adult Wellness Visit 06/01/2003 Albumin/Creatinine Ratio 12/21/2022 022, 10/11/2019, 05/22/2018 COVID-19 Vaccine ( season) 2023 04/17/2022, 02/06/2021, 05/29/2020, Additional history exists CKD PHOS USE SMARTSET 39179 12/30/202307/2022, 12/21/2021, 09/12/2018, Additional history exists CKD HGB USE SMARTSET 95269 12/27/202412/27, 12/28/2023, 12/15/2023, Additional history exists Depression [...] this encounter Medical Devices Implanted Type Area Teller Device Identifier Shelf Expiration Date Model / Serial / Lot Baseplate #6 Tritanium - [id number] Implanted:Qty: 1 on 10/22/2019 by Sammy Higgins DO at OR [facility] Left: Knee LISSET : ORTHOPAEDICS 07/23/2024 5536-B-600 / / [id number] Knee Triathlon Bead No Cuong L 6 - [id number] Implanted:Qty: 1 on 10/22/2019 by Sammy Higgins DO at OR [facility] Left: Knee LISSET : ORTHOPAEDICS 07/09/2024 5517-F-601 / / [id number] Patella Symmetric S33mm 9mm - [id number] Implanted:Qty: 1 on 10/22/2019 by Sammy Higgins DO at OR [facility] Left: Knee LISSET : ORTHOPAEDICS 10/29/2023 5556-L-339 / / [id number] Triathlon X3 Tibial Bearing Insert Cs Ramirez 6 Typ Cs Thkns 10mm Implanted:Qty: 1 on 10/22/2019 by Sammy Higgins DO at OR [facility] Left: Knee 01/07/2024 5531-G-610 -E / / [id number] documented as of this encounter Advance Directives Documents on File Type Date Recorded Patient Physician Scientist Expl anation Advance Directives and Livin g Will 05/25/2017 LIVING WILL Power of Customer Loyalty Representative 05/25/2017 POWER OF A TTORNEY * Full [...] 3:39 PM 11/15/2018 5:36 PM This order reflects the patients wishes and were consensually agreed [...] and were consensually agreed upon. Care Teams Fourth Mate Relationship Specialty Start Date End Date Heron Hutchinson MD [address] [place] [address] PCP - General 03/28/1997 documented as of this encounter
--- OUTSIDE RECORDS SUMMARY | 2024-01-26 18:47 | External Medical Summary | Summary of Care ---
Author Name Unknown Organization [facility] Address [address] [place] [address] Phone [phone] Care Team Providers Care Waiter/Waitress Tourist Class Name Role Phone Heron Hutchinson MD Primary Care Provider Reason for Visit * Reason Onset Date Comments Test Results 01/17/2024 Encounter Details Date Type Department Care Team (Late st Contact Info) Description 01/17/2024 Telephone Laboratory, [place] [address] [place] [address] Sachi Woodruff PA-C [address] [place] [address] Test Results Allergies No known [...] 3 04/01/2019 Atherosclerotic heart diseas e of [place] coronary artery without angina pectoris 04/01/2019 Secondary [...] BIPAP Plus set at 12 cwp AHP 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 Overview: ICD-10 [...] URI with cough 08/15/2014 018 [employer] Other*[id number] 07/12/2010 07/12/2013 Overview: PROJECT: #[id number], SPONSOR: Owen, PI: Ezio Johnson MD SUMMARY: [...] encounter can be closed. CONTACT: Lu Neely, Attenuator Chronic rhinitis 01/18/2010 08/15/2014 Elevated prostate specific [...] encounter Miscellaneous Notes * Addendum Note - Sachi Woodruff PA-C [...] I cannot guarantee that they will Sachi A ALICJA Woodruff * Telephone Encounter - Vanessa Bro LPN [...] unexpected or indeterminate finding on Macario Oliver ([id number]) and asks that you review the following [...] reviewed. Thank you, CEE Pendleton Client Service [facility] documented in this encounter Plan of Treatment Upcoming Encounters Date Type Department Care Team (Latest Contact Info) Description 01/26/2024 11:00 AM EDT Office Visit Cardiology, [facility] [address] [address] Diego George MD [address] [address] 01/29/2024 11:52 AM EST Hospital Encounter OR [facility], Operating Room, [facility] - 4th Floor [address] [place] [address] Chad Durham MD [address] [place] [address] 01/29/2024 11:52 AM EST - 01/29/2024 12:52 PM EST Surgery OR [facility], Operating Room, [facility] - 4th Floor [address] [place] [address] Chad Durham MD [address] [place] [address] COLONOSCOPY FLEXIBLE PROXIMAL DIAGNOSTIC 02/07/2024 8:30 AM EST Anticoagulation Pharmacy, [place] [address] [facility] [place] [address] [place], [facility] [address] [facility] [place] [address] 09/17/2024 10:15 AM EDT Office Visit Urology, [facility] [address] [place] [address] Zeus Davidson MD [address] [place] [address] Scheduled Procedures Name Priority Associated Diagnoses Date/Ti me COLONOSCOPY FLEXIBLE PROXIMA L DIAGNOSTIC Symptomatic anemia 01/29/2024 11:52 AM EST ESOPHAGOGASTRODUODENOSCOPY ( EGD), FLEXIBLE, TRANSORAL, DIAGNOSTIC Symptomatic anemia 01/29/2024 11:52 AM EST Health Maintenance Due Date Last Done Comments Adult Wellness Visit 06/01/2003 Albumin/Creatinine Ratio 12/21/2022 022, 10/11/2019, 05/22/2018 COVID-19 Vaccine ( season) 2023 04/17/2022, 02/06/2021, 05/29/2020, Additional history exists CKD PHOS USE SMARTSET 70248 12/30/2023 10/0 07/2022, 12/21/2021, 09/12/2018, Additional history exists Depression Screening 12/27/2024 12/28/2023 Zoster Vaccines (2 of 2) 12/27/2024 10/17/2017, 09/26 Postponed from 12/12/2017 (Patient Declined After Education) CKD HGB USE SMARTSET 74678 01/22/202501/22, 12/28/2023, 12/28/2023, Additional history exists DTap/Tdap [...] this encounter Medical Devices Implanted Type Area Handle Assembler Device Identifier Shelf Expiration Date Model / Serial / Lot Baseplate #6 Tritanium - [id number] Implanted:Qty: 1 on 10/22/2019 by Sammy Higgins DO at OR [facility] Left: Knee LISSET : ORTHOPAEDICS 07/23/2024 5536-B-600 / / [id number] Knee Triathlon Bead No Cuong L 6 - [id number] Implanted:Qty: 1 on 10/22/2019 by Sammy Higgins DO at OR [facility] Left: Knee LISSET : ORTHOPAEDICS 07/09/2024 5517-F-601 / / [id number] Patella Symmetric S33mm 9mm - [id number] Implanted:Qty: 1 on 10/22/2019 by Sammy Higgins DO at OR [facility] Left: Knee LISSET : ORTHOPAEDICS 10/29/2023 5556-L-339 / / [id number] Triathlon X3 Tibial Bearing Insert Cs Ramirez 6 Typ Cs Thkns 10mm Implanted:Qty: 1 on 10/22/2019 by Sammy Higgins DO at OR [facility] Left: Knee 01/07/2024 5531-G-610 -E / / [id number] documented as of this encounter Visit Diagnoses Diagnosis 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 Care Teams Waiter/Waitress Tourist Class Relationship Specialty Start Date End Date Heron Hutchinson MD [address] [place] [address] PCP - General 03/28/1997 documented as of this encounter
--- OUTSIDE RECORDS SUMMARY | 2024-01-26 18:47 | External Medical Summary | Summary of Care ---
Author Name Unknown Organization [facility] Address [address] [facility] [place] [address] Phone [phone] Care Team Providers Care Straw Hat Brim Cutter Operator Name Role Phone Heron Hutchinson MD Primary Care Provider [phone] Reason for Visit * Reason Onset Date Comments Pre Op Discussion 01/22/2024 Encounter Details Date Type Department Care Team (Late st Contact Info) Description 01/22/2024 Telephone ENDO [facility], Endoscopy [address] [address] Chad Durham [facility] [address] Pre Op Discussion Allergies No known active allergiesdocumented as of [...] 3 04/01/2019 Atherosclerotic heart diseas e of [place] coronary artery without angina pectoris 04/01/2019 Secondary [...] BIPAP Plus set at 12 cwp 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 CONTACT: Ziyad Neely, Historiography Professor Chronic rhinitis 01/18/2010 08/15/2014 Elevated prostate specific [...] encounter Miscellaneous Notes * Telephone Encounter - Taty Marte RPh - 01/22/2024 10:37 AM EDT Patient Phone Numbers Patient is having a colonoscopy and endoscopy on 01/28. Diagosis for coumadin therapy is afib. No hxof recent DVT, PE, MVR, OH or CVA. CHADS2 score of 4. Patient will take their last dose of owouanii31/29, then restart coumadin the evening of the procedure at the surgeon's discretion. Plan to repeat INR 10-14 days after procedure ([facility] has been making adjustments to dosing). Taty Marte RPh Clinical Pharmacist 01/22/2024, 10:38 AM * Telephone Encounter - Selene Reese RN - 01/22/2024 9:49 AM EDT Macario is scheduled for a EGD/Colonoscopy 01/29/24 for anemia. Please advise him on his warfarin. Your input is appreciated. Thank you documented in this encounter Plan of Treatment Upcoming Encounters Date Type Department Care Team (Latest Contact Info) Description 01/23/2024 7:40 AM EDT Anticoagulation Pharmacy, [place] [address] [place] [address] [facility] [address] [place] [address] 01/26/2024 11:00 AM EDT Office Visit Cardiology, [facility] [address] [place] [address] Diego George MD [address] [place] [address] 01/29/2024 12:34 PM EST Hospital Encounter OR [facility], Operating Room, [facility] - 4th Floor [address] [place] [phone] Chad Durham MD [address] [place] [address] 01/29/2024 12:34 PM EST - 01/29/2024 1:34 PM EST Surgery [facility], Operating Room, [facility] - 4th Floor [address] [facility] [phone] Chad Durham MD [address] [place] [address] COLONOSCOPY FLEXIBLE PROXIMAL DIAGNOSTIC 09/17/2024 10:15 AM EDT Office Visit Urology, [facility] [address] [place] [address] Zeus [place] MD [address] [place] [address] Scheduled Procedures Name Priority Associated Diagnoses Date/Ti me COLONOSCOPY FLEXIBLE PROXIMA L DIAGNOSTIC Symptomatic anemia 01/29/2024 12:34 PM EST ESOPHAGOGASTRODUODENOSCOPY ( EGD), FLEXIBLE, TRANSORAL, DIAGNOSTIC Symptomatic anemia 01/29/2024 12:34 PM EST Health Maintenance Due Date Last Done Comments Adult Wellness Visit 06/01/2003 Albumin/Creatinine Ratio 12/21/2022 022, 10/11/2019, 05/22/2018 COVID-19 Vaccine ( season) 2023 04/17/2022, 02/06/2021, 05/29/2020, Additional history exists CKD PHOS USE SMARTSET 31641 12/30/202307/2022, 12/21/2021, 09/12/2018, Additional history exists CKD HGB USE SMARTSET 41695 12/27/202412/27, 12/28/2023, 12/15/2023, Additional history exists Depression [...] this encounter Medical Devices Implanted Type Area Bar Machine Operator Multiple Spindle Device Identifier Shelf Expiration Date Model / Serial / Lot Baseplate #6 Tritanium - [id number] Implanted:Qty: 1 on 10/22/2019 by Sammy Higgins, DO at OR [facility] Left: Knee LISSET : ORTHOPAEDICS 07/23/2024 5536-B-600 / / [id number] Knee Triathlon Bead No Cuong L 6 - [id number] Implanted:Qty: 1 on 10/22/2019 by Sammy Higgins, DO at OR [facility] Left: Knee LISSET : ORTHOPAEDICS 07/09/2024 5517-F-601 / / [id number] Patella Symmetric S33mm 9mm - [id number] Implanted:Qty: 1 on 10/22/2019 by Sammy Higgins, DO at OR [facility] Left: Knee LISSET : ORTHOPAEDICS 10/29/2023 5556-L-339 / / [id number] Triathlon X3 Tibial Bearing Insert Cs Ramirez 6 Typ Cs Thkns 10mm Implanted:Qty: 1 on 10/22/2019 by Sammy Higgins, at OR [facility] Left: Knee 01/07/2024 5531-G-610 -E / / [id number] documented as of this encounter Visit Diagnoses Diagnosis Chronic atrial fibrillation (HCC)- Primary Atrial fibrillation S/P TAVR (transcatheter aortic valve replacement) Heart valve replaced by other means Symptomatic anemia documented in this encounter Advance Directives Documents on File Type Date Recorded Patient Resident Care Assistant Expl anation Advance Directives and Livin g Will 05/25/2017 LIVING WILL Power of Stockroom Keeper 05/25/2017 POWER OF A TTORNEY * Full [...] and were consensually agreed upon. Care Teams Straw Hat Brim Cutter Operator Relationship Specialty Start Date End Date Heron Hutchinson MD [address] [place] [address] PCP - General 03/28/1997 documented as of this encounter
--- OUTSIDE RECORDS SUMMARY | 2024-01-26 18:47 | External Medical Summary ---
Author Name Unknown Address Unknown Organization : Laboratory Report Ordering Provider Test Date Status ALLA NEWBERRY 01/23/2024 07:50:44 Final Therapeutic ranges for non-o perative patients:
Prophylaxsis/treatment of DVT: (Range:2.0-3.0)
Treatment of pulmonary embolism:(Range:2.0-3.0)
Prevention of systemic embolism from:
-tissue heart valves
-acute myocardial infarction
-valvular heart disease
-atrial fibrillation
(Range: 2.0-3.0)
Mechanical prosthetic valves: (Range: 2.5-3.5) Observation Date Value Abnormality Reference (Units ) Status INR in Capillary blood by Coagulation assay 01/23/2024 07:50:44 3.7 (INR) Final Performing Location
--- OUTSIDE RECORDS SUMMARY | 2024-01-26 18:47 | External Medical Summary ---
Author Name Unknown Address Unknown Organization K01:[facility] [address] [place] [address] Laboratory Report Ordering Provider Test Date Status AMBER YOUNG 01/23/2024 08:02:52 Final Observation Date Value Abnormality Reference (Units ) Status Magnesium 01/23/2024 08:02:52 1.9 1.5-2.6 (m g/dL) Final Performing Location [facility] - [address] [place] [address]
--- OUTSIDE RECORDS SUMMARY | 2024-01-26 18:47 | External Medical Summary ---
Author Name Unknown Address Unknown Organization K01:[facility] [place] - [address] [facility] [address] Laboratory Report Ordering Provider Test Date Status KRYS CHRIS 01/23/2024 08:02:52 Final Observation Date Value Abnormality Reference (Units ) Status WBC, Total 01/23/2024 08:02:52 9.17 4.00-10.80 (K/uL) Final RBC 01/23/2024 08:02:52 2.87 4.50-5.25 (M/uL) Final Hemoglobin 01/23/2024 08:02:52 7.8 Below low normal 14.0-16.8 (g/dL) Final HCT 01/23/2024 08:02:52 25.1 Below low normal 40.0-48.4 (%) Final MCV 01/23/2024 08:02:52 87.5 82.0-99.5 (fL) Final MCH 01/23/2024 08:02:52 27.2 27.0-34.0 (pg) Final MCHC 01/23/2024 08:02:52 31.1 32.0-36.0 (g/dL) Final RDW 01/23/2024 08:02:52 15.6 11.5-15.5 (%) Final Platelets 01/23/2024 08:02:52 327 140-400 (K/uL) Final MPV 01/23/2024 08:02:52 9.3 6.6-11.1 (fL) Final Nucleated erythrocytes/100 leukocytes [Ratio] in Blood by Automated count 01/23/2024 08:02:52 0 <=0 (/100 WBCs) Final Performing Location [facility] - [address] [place] [address]
--- OUTSIDE RECORDS SUMMARY | 2024-01-26 18:47 | External Medical Summary | Summary of Care ---
Author Name Unknown Organization [facility] Address [address] [place] [address] Phone [phone] Care Team Providers Care Mechanical Maintenance Worker Name Role Phone Heron Hutchinson MD Primary Care Provider [phone] Reason for Visit * Reason Onset Date Comments Test Results 01/17/2024 Encounter Details Date Type Department Care Team ([facility] st Contact Info) Description 01/17/2024 Telephone Laboratory, [place] [address] [place] [address] Sachi Hansen PA-C [address] [place] [address] Test Results Allergies No known active allergiesdocumented as of this encounter (statuses as of 01/18/2024) Medications Medication Sig Dispensed Refills Start Date [...] as of this encounter (statuses as of 01/18/2024) Active Problems Problem Noted Date Diagnosed Date [...] 3 04/01/2019 Atherosclerotic heart diseas e of [place] coronary artery without angina pectoris 04/01/2019 Secondary [...] BIPAP Plus set at 12 cwp AHP senior living current use of 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 Overview: ICD-10 update of inactive term documented as of this encounter (statuses as of 01/18/2024) Resolved Problems Problem Noted Date Diagnosed Date [...] URI with cough 08/15/2014 018 [employer] Research Other*[id number] 07/12/2010 07/12/2013 Overview: PROJECT: #[id number], SPONSOR: Owen, PI: Ezio Johnson MD SUMMARY: [...] encounter can be closed. CONTACT: Ziyad Neely, Rail Express Clerk Chronic rhinitis 01/18/2010 08/15/2014 Elevated prostate specific antigen (PSA) 01/16/2002 03/26/2018 Benign prostatic hyperplasia 01/09/2002 03/26/2018 Overview: ICD-10 update of inactive term ICD-10 update of inactive term Anticoagulation management encounter 10/12/2001 03/26/2018 Open wound of forearm 09/01/20002017 Atrial fibrillation 09/25/1995 03/26/20 18 Dyslipidemia, goal to be determined 03/01/2013 documented as of this encounter (statuses as of 01/18/2024) Immunizations Name Administration Dates Next Due COVID-19 [...] encounter Miscellaneous Notes * Telephone Encounter - Sachi Hansen PA-C - 01/18/2024 8:38 AM EDT My understanding is that they go in from the waist up The alternative would be to see a surgeon to see if he is willing to biopsy without imaging - I cannot guarantee that they will Sachi Hansen PA-C * Telephone Encounter - Vanessa Bro [...] our call. * Telephone Encounter - Sachi Hansen PA-C - 01/17/2024 5:00 PM EDT Please let them know, the ultrasound could not determine if this was a node or a growth (rapid can mean cancer) They suggested an mri Is he willing? Sachi Hansen PA-C * Telephone Encounter - Juliette Selby OSA - 01/17/2024 11:21 AM EDT Hello- The radiologist discovered an unexpected or indeterminate finding on Macario Oliver ([id number]) and asks that you review the following [...] reviewed. Thank you, CEE Pendleton Client Service [facility] documented in this encounter Plan of Treatment Upcoming Encounters Date Type Department Care Team (Latest Contact Info) Description 01/23/2024 7:40 AM EDT Anticoagulation Pharmacy, [place] [address] [place] [address] [place] [address] [facility] [place] [address] 01/26/2024 11:00 AM EDT Office Visit Cardiology, [facility] [place] [address] Diego George MD [address] [place] [address] 03/19/2024 3:30 PM EST Office Visit Cardiology, [facility] [address] [facility] [place] [address] Tahira Jones PA-Aleksandr [address] [facility] [place] [address] 04/25/2024 12:41 PM EST Hospital Encounter OR [facility], Operating Room, [facility] - 4th Floor [address] [place] [phone] Maria Teresa Quiroga, DO [address] [facility] [place] [address] 04/25/2024 12:41 PM EST - 04/25/2024 1:29 PM EST Surgery OR [facility], Operating Room, [facility] - 4th Floor [address] [place] [phone] Maria Teresa Qurioga, DO [address] [facility] [place] [address] COLONOSCOPY FLEXIBLE PROXIMAL DIAGNOSTIC 09/17/2024 10:15 AM EDT Office Visit Urology, [facility] [address] [facility] [facility] [place] [address] Zeus [place] MD [address] [place] [address] Scheduled Procedures Name Priority Associated Diagnoses Date/Ti me COLONOSCOPY FLEXIBLE PROXIMA L DIAGNOSTIC Symptomatic anemia 04/25/2024 12:41 PM EST ESOPHAGOGASTRODUODENOSCOPY ( EGD), FLEXIBLE, TRANSORAL, DIAGNOSTIC Symptomatic anemia 04/25/2024 12:41 PM EST Health Maintenance Due Date Last Done Comments Adult Wellness Visit 06/01/2003 Albumin/Creatinine Ratio 12/21/2022 022, 10/11/2019, 05/22/2018 COVID-19 Vaccine ( season) 2023 04/17/2022, 02/06/2021, 05/29/2020, Additional history exists CKD PHOS USE SMARTSET 60566 12/30/202307/2022, 12/21/2021, 09/12/2018, Additional history exists CKD HGB USE SMARTSET 56922 12/27/202412/27, 12/28/2023, 12/15/2023, Additional history exists Depression [...] this encounter Medical Devices Implanted Type Area Evaluator Device Identifier Shelf Expiration Date Model / Serial / Lot Baseplate #6 Tritanium - [id number] Implanted:Qty: 1 on 10/22/2019 by Sammy Higgins, DO at OR [facility] Left: Knee LISSET : ORTHOPAEDICS 07/23/2024 5536-B-600 / / [id number] Knee Triathlon Bead No Cuong L 6 - [id number] Implanted:Qty: 1 on 10/22/2019 by Sammy Higgins, DO at OR [facility] Left: Knee LISSET : ORTHOPAEDICS 07/09/2024 5517-F-601 / / [id number] Patella Symmetric S33mm 9mm - [id number] Implanted:Qty: 1 on 10/22/2019 by Sammy Higgins, DO at OR [facility] Left: Knee LISSET : ORTHOPAEDICS 10/29/2023 5556-L-339 / / [id number] Triathlon X3 Tibial Bearing Insert Cs Ramirez 6 Typ Cs Thkns 10mm Implanted:Qty: 1 on 10/22/2019 by Sammy Higgins, DO at OR [facility] Left: Knee 01/07/2024 5531-G-610 -E / / [id number] documented as of this encounter Advance Directives Documents on File Type Date Recorded Patient Coil Rewind Machine Operator Expl anation Advance Directives and Livin g Will 05/25/2017 LIVING WILL Power of Process Improvement Manager 05/25/2017 POWER OF A TTORNEY * Full [...] and were consensually agreed upon. Care Teams Mechanical Maintenance Worker Relationship Specialty Start Date End Date Heron Hutchinson MD [address] [place] [address] PCP - General 03/28/1997 documented as of this encounter
--- OUTSIDE RECORDS SUMMARY | 2024-01-26 18:47 | External Medical Summary | Summary of Care ---
Author Name Unknown Organization [facility] Address [address] [place] [address] Phone [phone] Care Team Providers Care Head Operator Name Role Phone Heron Hutchinson MD Primary Care Provider Reason for Visit * Reason Onset Date Comments Test Results 01/17/2024 Encounter Details Date Type Department Care Team (Late st Contact Info) Description 01/17/2024 Telephone Laboratory, [place] [address] [place] [address] Sachi Hansen PA-C [address] [place] [address] Test Results Allergies No known [...] 3 04/01/2019 Atherosclerotic heart diseas e of [place] coronary artery without angina pectoris 04/01/2019 Secondary [...] BIPAP Plus set at 12 cwp [facility] current use of 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 Overview: ICD-10 [...] URI with cough 08/15/2014 018 [employer] Other*[id number] 07/12/2010 07/12/2013 Overview: PROJECT: #[id number], SPONSOR: Owen, PI: Ezio Johnson MD SUMMARY: [...] encounter can be closed. CONTACT: Lu Neely, Cns Chronic rhinitis 01/18/2010 08/15/2014 Elevated prostate specific [...] encounter Miscellaneous Notes * Telephone Encounter - Tamra Madden LPN - 01/24/2024 8:29 AM EDT See MyG message * Telephone Encounter - Sahci Hansen PA-C - 01/18/2024 8:38 AM EDT [...] unexpected or indeterminate finding on Macario Oliver ([id number]) and asks that you review the following [...] reviewed. Thank you, CEE Pendleton Client Service [facility] documented in this encounter Plan of Treatment Upcoming Encounters Date Type Department Care Team (Latest Contact Info) Description 01/26/2024 11:00 AM EDT Office Visit Cardiology, [facility] [address] [address] Diego George MD [address] [address] 01/29/2024 11:52 AM EST Hospital Encounter OR [facility], Operating Room, [facility] - 4th Floor [address] [facility] [phone] Chad Durham MD [address] [address] 01/29/2024 11:52 AM EST - 01/29/2024 12:52 PM EST Surgery OR [facility], Operating Room, [facility] [address] [facility] [phone] Chad Durham MD [address] [address] COLONOSCOPY FLEXIBLE PROXIMAL DIAGNOSTIC 02/07/2024 8:30 AM EST Anticoagulation [facility] [address] [place] [address] [facility] [address] [place] [address] 09/17/2024 10:15 AM EDT Office Visit Urology, [facility] [address] [address] Zeus Davidson MD [address] [place] [address] Scheduled Procedures Name Priority Associated Diagnoses Date/Ti me COLONOSCOPY FLEXIBLE PROXIMA L DIAGNOSTIC Symptomatic anemia 01/29/2024 11:52 AM EST ESOPHAGOGASTRODUODENOSCOPY ( EGD), FLEXIBLE, TRANSORAL, DIAGNOSTIC Symptomatic anemia 01/29/2024 11:52 AM EST Health Maintenance Due Date Last Done Comments Adult Wellness Visit 06/01/2003 Albumin/Creatinine Ratio 12/21/2022 022, 10/11/2019, 05/22/2018 COVID-19 Vaccine ( season) 2023 04/17/2022, 02/06/2021, 05/29/2020, Additional history exists CKD PHOS USE SMARTSET 42104 12/30/202307/2022, 12/21/2021, 09/12/2018, Additional history exists Depression Screening 12/27/2024 12/28/2023 Zoster Vaccines (2 of 2) 12/27/2024 10/17/2017, 09/26 Postponed from 12/12/2017 (Patient Declined After Education) CKD HGB USE SMARTSET 79287 01/22/202501/22, 12/28/2023, 12/28/2023, Additional history exists DTap/Tdap [...] this encounter Medical Devices Implanted Type Area Supervisor Fireworks Assembly Device Identifier Shelf Expiration Date Model / Serial / Lot Baseplate #6 Tritanium - [id number] Implanted:Qty: 1 on 10/22/2019 by Sammy Higgins, DO at OR [facility] Left: Knee LISSET : ORTHOPAEDICS 07/23/2024 5536-B-600 / / [id number] Knee Triathlon Bead No Cuong L 6 - [id number] Implanted:Qty: 1 on 10/22/2019 by Sammy Higgins, DO at OR [facility] Left: Knee LISSET : ORTHOPAEDICS 07/09/2024 5517-F-601 / / [id number] Patella Symmetric S33mm 9mm - [id number] Implanted:Qty: 1 on 10/22/2019 by Sammy Higgins, at OR [facility] Left: Knee LISSET : ORTHOPAEDICS 10/29/2023 5556-L-339 / / [id number] Triathlon X3 Tibial Bearing Insert Cs Ramirez 6 Typ Cs Thkns 10mm Implanted:Qty: 1 on 10/22/2019 by Sammy Higgins, at OR [facility] Left: Knee 01/07/2024 5531-G-610 -E / / [id number] documented as of this encounter Advance Directives Documents on File Type Date Recorded Patient Data Processing Systems Consultant Expl anation Advance Directives and Livin g Will 05/25/2017 LIVING WILL Power of Grain Unloader Machine 05/25/2017 POWER OF A TTORNEY * Full [...] and were consensually agreed upon. Care Teams Head Operator Relationship Specialty Start Date End Date Heron Hutchinson MD [address] [place] [address] PCP - General 03/28/1997 documented as of this encounter
--- OUTSIDE RECORDS SUMMARY | 2024-01-26 18:48 | External Medical Summary | Summary of Care ---
Author Name Unknown Organization [facility] Address [address] [place] [address] Phone [phone] Care Team Providers Care Lacquer Polisher Name Role Phone Heron Hutchinson MD Primary Care Provider [phone] Reason for Visit * Reason Onset Date Comments Test Results 01/17/2024 Encounter Details Date Type Department Care Team ([facility] st Contact Info) Description 01/17/2024 Telephone Laboratory, [place] [address] [place] [address] Sachi Hansen PA-C [address] [place] [address] Test Results Allergies No known active allergiesdocumented as of this encounter (statuses as of 01/17/2024) Medications Medication Sig Dispensed Refills Start Date [...] as of this encounter (statuses as of 01/17/2024) Active Problems Problem Noted Date Diagnosed Date [...] 3 04/01/2019 Atherosclerotic heart diseas e of [place] coronary artery without angina pectoris 04/01/2019 Secondary [...] as of this encounter (statuses as of 01/17/2024) Resolved Problems Problem Noted Date Diagnosed Date [...] URI with cough 08/15/2014 018 ORBIT-[employer] Research Other*[id number] 07/12/2010 07/12/2013 Overview: PROJECT: #[id number], SPONSOR: Owen, PI: Ezio Johnson MD SUMMARY: [...] encounter can be closed. CONTACT: Ziyad Neely, Gospel Worker Chronic rhinitis 01/18/2010 08/15/2014 Elevated prostate specific antigen (PSA) 01/16/2002 03/26/2018 Benign prostatic hyperplasia 01/09/2002 03/26/2018 Overview: ICD-10 update of inactive term ICD-10 update of inactive term Anticoagulation management encounter 10/12/2001 03/26/2018 Open wound of forearm 09/01/20002017 Atrial fibrillation 09/25/1995 03/26/20 18 Dyslipidemia, goal to be determined 03/01/2013 documented as of this encounter (statuses as of 01/17/2024) Immunizations Name Administration Dates Next Due COVID-19 [...] encounter Miscellaneous Notes * Telephone Encounter - Juliette Selby OSA - 01/17/2024 11:21 AM EDT Hello- The radiologist discovered an unexpected or indeterminate finding on Macario Oliver ([id number]) and asks that you review the following [...] you, CEE Pendleton Client Service [facility] [place] documented in this encounter Plan of Treatment Upcoming Encounters Date Type Department Care Team (Latest Contact Info) Description 01/23/2024 7:40 AM EDT Anticoagulation Pharmacy, [place] [address] [facility] [address] [facility] [address] [place] [facility] [place] [address] 01/26/2024 11:00 AM EDT Office Visit Cardiology, [facility] [address] [place] [address] Diego George MD [address] [place] [address] 03/19/2024 3:30 PM EST Office Visit Cardiology, [facility] [place] [address] Tahira Jones, PA-C [address] [facility] [address] 04/25/2024 12:41 PM EST Hospital Encounter OR [facility], Operating Room, [facility] - 4th Floor [address] [place] [address] Maria Teresa Quiroga, DO [address] [place] [address] 04/25/2024 12:41 PM EST - 04/25/2024 1:29 PM EST Surgery OR [facility], Operating Room, [facility] - 4th Floor [address] [place] [address] Maria Teresa Quiroga, DO [address] [place] [address] COLONOSCOPY FLEXIBLE PROXIMAL DIAGNOSTIC 09/17/2024 10:15 AM EDT Office Visit Urology, [facility] [address] [place] [address] Zeus Davidson MD [address] [place] [address] Scheduled Procedures Name Priority Associated Diagnoses Date/Ti me COLONOSCOPY FLEXIBLE PROXIMA L DIAGNOSTIC Symptomatic anemia 04/25/2024 12:41 PM EST ESOPHAGOGASTRODUODENOSCOPY ( EGD), FLEXIBLE, TRANSORAL, DIAGNOSTIC Symptomatic anemia 04/25/2024 12:41 PM EST Health Maintenance Due Date Last Done Comments Adult Wellness Visit 06/01/2003 Albumin/Creatinine Ratio 12/21/2022 022, 10/11/2019, 05/22/2018 COVID-19 Vaccine ( season) 2023 04/17/2022, 02/06/2021, 05/29/2020, Additional history exists CKD PHOS USE SMARTSET 16015 12/30/202307/2022, 12/21/2021, 09/12/2018, Additional history exists *NEPHROLOGY 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 HTN 01/06/2024 CKD HGB USE SMARTSET 66489 12/27/202412/27, 12/28/2023, 12/15/2023, Additional history exists Depression [...] this encounter Medical Devices Implanted Type Area Windchill Administrator Device Identifier Shelf Expiration Date Model / Serial / Lot Baseplate #6 Tritanium - [id number] Implanted:Qty: 1 on 10/22/2019 by Sammy Higgins, DO at OR [facility] Left: Knee LISSET : ORTHOPAEDICS 07/23/2024 5536-B-600 / / [id number] Knee Triathlon Bead No Cuong L 6 - [id number] Implanted:Qty: 1 on 10/22/2019 by Sammy Higgins, DO at OR [facility] Left: Knee LISSET : ORTHOPAEDICS 07/09/2024 5517-F-601 / / [id number] Patella Symmetric S33mm 9mm - [id number] Implanted:Qty: 1 on 10/22/2019 by Sammy Higgins, DO at OR [facility] Left: Knee LISSET : ORTHOPAEDICS 10/29/2023 5556-L-339 / / [id number] Triathlon X3 Tibial Bearing Insert Cs Ramirez 6 Typ Cs Thkns 10mm Implanted:Qty: 1 on 10/22/2019 by Sammy Higgins, DO at OR [facility] Left: Knee 01/07/2024 5531-G-610 -E / / [id number] documented as of this encounter Advance Directives Documents on File Type Date Recorded Patient Certified Personal Chef Expl anation Advance Directives and Livin g Will 05/25/2017 LIVING WILL Power of Counselor Education Professor 05/25/2017 POWER OF A TTORNEY * Full [...] and were consensually agreed upon. Care Teams Lacquer Polisher Relationship Specialty Start Date End Date Heron Hutchinson MD [address] [facility] [place] [id number] PCP - General 03/28/1997 documented as of this encounter
--- OUTSIDE RECORDS SUMMARY | 2024-01-26 18:48 | External Medical Summary | Summary of Care ---
Author Name Unknown Organization [facility] Address [address] [place] [address] Phone [phone] Care Team Providers Care Lurer Name Role Phone Heron Hutchinson MD Primary Care Provider [phone] Reason for Visit * Reason Onset Date Comments Test Results 01/17/2024 Encounter Details Date Type Department Care Team ([facility] st Contact Info) Description 01/17/2024 Telephone Laboratory, [place] [address] [place] [address] Sachi Hansen PA-C [address] [place] [address] Test Results Allergies No known [...] 3 04/01/2019 Atherosclerotic heart diseas e of [place] coronary artery without angina pectoris 04/01/2019 Secondary [...] BIPAP Plus set at 12 cwp [facility] current use of 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 Overview: ICD-10 [...] URI with cough 08/15/2014 018 ORBIT-[employer] Research Other*[id number] 07/12/2010 07/12/2013 Overview: PROJECT: #[id number], SPONSOR: Owen, PI: Ezio Johnson MD SUMMARY: [...] encounter can be closed. CONTACT: Ziyad Neely, Scene And Lighting Design Lecturer Chronic rhinitis 01/18/2010 08/15/2014 Elevated prostate specific [...] encounter Miscellaneous Notes * Telephone Encounter - Scahi Hansen PA-C - 01/17/2024 5:00 PM EDT Please let them know, the ultrasound could not determine if this was a node or a growth (rapid can mean cancer) They suggested an mri Is he willing? Sachi Hansen PA-C * Telephone Encounter - Juliette Selby OSA - 01/17/2024 11:21 AM EDT Hello- The radiologist discovered an unexpected or indeterminate finding on Macario Oliver ([id number]) and asks that you review the following [...] reviewed. Thank you, CEE Pendleton Client Service Rep [facility] documented in this encounter Plan of Treatment Upcoming Encounters Date Type Department Care Team (Latest Contact Info) Description 01/23/2024 7:40 AM EDT Anticoagulation Pharmacy, [place] [address] [place] [address] [place], [facility] [address] [place] [facility] [place] [address] 01/26/2024 11:00 AM EDT Office Visit Cardiology, [facility] [address] [place] [address] Diego George MD [address] [place] [address] 03/19/2024 3:30 PM EST Office Visit Cardiology, [facility] [address] [place] [address] Tahira Jones PA-C [address] [place] [address] 04/25/2024 12:41 PM EST Hospital Encounter OR [facility], Operating Room, [facility] - 4th Floor [address] [phone] Maria Teresa Quiroga DO [address] [place] [address] 04/25/2024 12:41 PM EST - 04/25/2024 1:29 PM EST Surgery OR [facility], Operating Room, [facility] - 4th Floor [address] [place] [address] Maria Teresa Quiroga, DO [address] [place] [address] COLONOSCOPY FLEXIBLE PROXIMAL DIAGNOSTIC 09/17/2024 10:15 AM EDT Office Visit Urology, [facility] [address] [place] [address] Zeus Davidson MD [address] [place] [address] Scheduled Procedures Name Priority Associated Diagnoses Date/Ti me COLONOSCOPY FLEXIBLE PROXIMA L DIAGNOSTIC Symptomatic anemia 04/25/2024 12:41 PM EST ESOPHAGOGASTRODUODENOSCOPY ( EGD), FLEXIBLE, TRANSORAL, DIAGNOSTIC Symptomatic anemia 04/25/2024 12:41 PM EST Health Maintenance Due Date Last Done Comments Adult Wellness Visit 06/01/2003 Albumin/Creatinine Ratio 12/21/2022 022, 10/11/2019, 05/22/2018 COVID-19 Vaccine ( season) 2023 04/17/2022, 02/06/2021, 05/29/2020, Additional history exists CKD PHOS USE SMARTSET 68355 12/30/202307/2022, 12/21/2021, 09/12/2018, Additional history exists *NEPHROLOGY 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 HTN 01/06/2024 CKD HGB USE SMARTSET 54365 12/27/202412/27, 12/28/2023, 12/15/2023, Additional history exists Depression [...] this encounter Medical Devices Implanted Type Area Wire Web Worker Device Identifier Shelf Expiration Date Model / Serial / Lot Baseplate #6 Tritanium - [id number] Implanted:Qty: 1 on 10/22/2019 by Sammy Higgins DO at OR [facility] Left: Knee LISSET : ORTHOPAEDICS 07/23/2024 5536-B-600 / / [id number] Knee Triathlon Bead No [place] L 6 - [id number] Implanted:Qty: 1 on 10/22/2019 by Sammy Higgins DO at OR [facility] Left: Knee LISSET : ORTHOPAEDICS 07/09/2024 5517-F-601 / / [id number] Patella Symmetric S33mm 9mm - [id number] Implanted:Qty: 1 on 10/22/2019 by Sammy Higgins DO at OR [facility] Left: Knee LISSET : ORTHOPAEDICS 10/29/2023 5556-L-339 / / [id number] Triathlon X3 Tibial Bearing Insert Cs Ramirez 6 Typ Cs Thkns 10mm Implanted:Qty: 1 on 10/22/2019 by Sammy Higgins DO at OR [facility] Left: Knee 01/07/2024 5531-G-610 -E / / [id number] documented as of this encounter Advance Directives Documents on File Type Date Recorded Patient Settlement Worker Expl anation Advance Directives and Livin g Will 05/25/2017 LIVING WILL Power of Top Lift Trimmer 05/25/2017 POWER OF A TTORNEY * Full [...] and were consensually agreed upon. Care Teams Lurer Relationship Specialty Start Date End Date Heron Hutchinson MD [address] [place] [address] PCP - General 03/28/1997 documented as of this encounter
--- OUTSIDE RECORDS SUMMARY | 2024-01-26 18:48 | External Medical Summary | Summary of Care ---
Author Name Unknown Organization [facility] Address [address] [place] [address] Phone [phone] Care Team Providers Care Form Tamping Machine Operator Name Role Phone Heron Hutchinson MD Primary Care Provider [phone] Reason for Visit * Reason Onset Date Comments Test Results 01/17/2024 Encounter Details Date Type Department Care Team ([facility] st Contact Info) Description 01/17/2024 Telephone Laboratory, [place] [address] [place] [address] Sachi Hansen PA-C [address] [place] [address] Test Results Allergies No known [...] BIPAP Plus set at 12 cwp [facility] current use of 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 Overview: ICD-10 [...] URI with cough 08/15/2014 018 [employer] Other*[id number] 07/12/2010 07/12/2013 Overview: PROJECT: #[id number], SPONSOR: Owen, PI: Ezio Johnson MD SUMMARY: [...] encounter can be closed. CONTACT: Ziyad Neely, Leak Detection Engineer Chronic rhinitis 01/18/2010 08/15/2014 Elevated prostate specific [...] unexpected or indeterminate finding on Macario Oliver ([id number]) and asks that you review the following [...] reviewed. Thank you, CEE Pendleton Client Service [facility] [place] documented in this encounter Plan of Treatment Upcoming Encounters Date Type Department Care Team (Latest Contact Info) Description 01/23/2024 7:40 AM EDT Anticoagulation Pharmacy, [place] [address] [facility] [address] [facility] [address] [place] [address] 01/26/2024 11:00 AM EDT Office Visit Cardiology, [facility] [address] [place] [address] Diego George MD [address] [place] [address] 03/19/2024 3:30 PM EST [facility] Visit Cardiology, [facility] [place] [address] Tahira Jones, PA-C [address] [facility] [place] [address] 04/25/2024 12:41 PM EST Hospital Encounter OR [facility], Operating Room, [facility] - 4th Floor [address] [place] [address] Maria Teresa Quiroga, DO [address] [place] [address] 04/25/2024 12:41 PM EST - 04/25/2024 1:29 PM EST Surgery OR [facility], Operating Room, [facility] - 4th Floor [address] [place] [address] Maria Teresa Quiroga, DO [address] [place] [address] COLONOSCOPY FLEXIBLE PROXIMAL DIAGNOSTIC 09/17/2024 10:15 AM EDT Office Visit Urology, [facility] [address] [place] [address] Zeus Davidson MD [address] [place] [address] Scheduled Procedures Name Priority Associated Diagnoses Date/Ti me COLONOSCOPY FLEXIBLE PROXIMA L DIAGNOSTIC Symptomatic anemia 04/25/2024 12:41 PM EST ESOPHAGOGASTRODUODENOSCOPY ( EGD), FLEXIBLE, TRANSORAL, DIAGNOSTIC Symptomatic anemia 04/25/2024 12:41 PM EST Health Maintenance Due Date Last Done Comments Adult Wellness Visit 06/01/2003 Albumin/Creatinine Ratio 12/21/2022 022, 10/11/2019, 05/22/2018 COVID-19 Vaccine ( season) 2023 04/17/2022, 02/06/2021, 05/29/2020, Additional history exists CKD PHOS USE SMARTSET 62283 12/30/202307/2022, 12/21/2021, 09/12/2018, Additional history exists *NEPHROLOGY 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 HTN 01/06/2024 CKD HGB USE SMARTSET 49679 12/27/202412/27, 12/28/2023, 12/15/2023, Additional history exists Depression [...] this encounter Medical Devices Implanted Type Area Wiener Packer Device Identifier Shelf Expiration Date Model / Serial / Lot Baseplate #6 Tritanium - [id number] Implanted:Qty: 1 on 10/22/2019 by Sammy Higgins, DO at OR [facility] Left: Knee LISSET : ORTHOPAEDICS 07/23/2024 5536-B-600 / / [id number] Knee Triathlon Bead No Cuong L 6 - [id number] Implanted:Qty: 1 on 10/22/2019 by Sammy Higgins, DO at OR [facility] Left: Knee LISSET : ORTHOPAEDICS 07/09/2024 5517-F-601 / / [id number] Patella Symmetric S33mm 9mm - [id number] Implanted:Qty: 1 on 10/22/2019 by Sammy Higgins, DO at OR [facility] Left: Knee LISSET : ORTHOPAEDICS 10/29/2023 5556-L-339 / / [id number] Triathlon X3 Tibial Bearing Insert Cs Ramirez 6 Typ Cs Thkns 10mm Implanted:Qty: 1 on 10/22/2019 by Sammy Higgins, DO at OR [facility] Left: Knee 01/07/2024 5531-G-610 -E / / [id number] documented as of this encounter Advance Directives Documents on File Type Date Recorded Patient Special Needs Tutor Expl anation Advance Directives and Livin g Will 05/25/2017 LIVING WILL Power of Seed Sorter 05/25/2017 POWER OF A TTORNEY * Full [...] and were consensually agreed upon. Care Teams Form Tamping Machine Operator Relationship Specialty Start Date End Date Heron Hutchinson MD [address] [facility] [place] [id number] PCP - General 03/28/1997 documented as of this encounter
--- OUTSIDE RECORDS SUMMARY | 2024-01-26 18:48 | External Medical Summary | Summary of Care ---
Author Name Unknown Organization [facility] Address [address] [place] [address] Phone [phone] Care Team Providers Care Curriculum And Assessment Coordinator Name Role Phone Heron Hutchinson MD Primary Care Provider [phone] Reason for Visit * Reason Onset Date Comments Test Results 01/17/2024 Encounter Details Date Type Department Care Team ([facility] st Contact Info) Description 01/17/2024 Telephone Laboratory, [place] [address] [place] [address] Sachi Hansen PA-C [address] [place] [address] Test Results Allergies No known [...] 3 04/01/2019 Atherosclerotic heart diseas e of [place] coronary artery without angina pectoris 04/01/2019 Secondary [...] BIPAP Plus set at 12 cwp AHP half-way current use of 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 Overview: ICD-10 [...] URI with cough 08/15/2014 018 [employer] Research Other*[id number] 07/12/2010 07/12/2013 Overview: PROJECT: #[id number], SPONSOR: Owen, PI: Ezio Johnson MD SUMMARY: [...] encounter can be closed. CONTACT: Ziyad Neely, Shipper And Receiving Chronic rhinitis 01/18/2010 08/15/2014 Elevated prostate specific [...] encounter Miscellaneous Notes * Telephone Encounter - Bee Rosario LPN [...] Sachi Hansen PA-C * Telephone Encounter - uJliette Selby OSA - 01/17/2024 11:21 AM EDT Ligia- The radiologist discovered an unexpected or indeterminate finding on Macario Oliver ([id number]) and asks that you review the following [...] Thank you, CEE Pendleton Client Service Rep [facility] documented in this encounter Plan of Treatment Upcoming Encounters Date Type Department Care Team (Latest Contact Info) Description 01/23/2024 7:40 AM EDT Anticoagulation Pharmacy, [place] [address] [place] [address] [facility] [address] [place] [address] 01/26/2024 11:00 AM EDT Office Visit Cardiology, [facility] [address] [address] Diego George MD [address] [place] [address] 03/19/2024 3:30 PM EST Office Visit Cardiology, [facility] [address] [place] [address] Tahira Jones [facility]-C [address] [facility] [address] 04/25/2024 12:41 PM EST Hospital Encounter OR [facility], Operating Room, [facility] - 4th Floor [address] [place] [address] Maria Teresa Quiroga, DO [address] [place] [address] 04/25/2024 12:41 PM EST - 04/25/2024 1:29 PM EST Surgery OR [facility], Operating Room, [facility] - 4th Floor [address] [place] [address] Maria Teresa Quiroga, DO [address] [place] [address] COLONOSCOPY FLEXIBLE PROXIMAL DIAGNOSTIC 09/17/2024 10:15 AM EDT Office Visit Urology, [facility] [address] [place] [address] Zeus Davidson MD [address] [place] [address] Scheduled Procedures Name Priority Associated Diagnoses Date/Ti me COLONOSCOPY FLEXIBLE PROXIMA L DIAGNOSTIC Symptomatic anemia 04/25/2024 12:41 PM EST ESOPHAGOGASTRODUODENOSCOPY ( EGD), FLEXIBLE, TRANSORAL, DIAGNOSTIC Symptomatic anemia 04/25/2024 12:41 PM EST Health Maintenance Due Date Last Done Comments Adult Wellness Visit 06/01/2003 Albumin/Creatinine Ratio 12/21/2022 022, 10/11/2019, 05/22/2018 COVID-19 Vaccine ( season) 2023 04/17/2022, 02/06/2021, 05/29/2020, Additional history exists CKD PHOS USE SMARTSET 48060 12/30/202307/2022, 12/21/2021, 09/12/2018, Additional history exists *NEPHROLOGY 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 HTN 01/06/2024 CKD HGB USE SMARTSET 27215 12/27/202412/27, 12/28/2023, 12/15/2023, Additional history exists Depression [...] this encounter Medical Devices Implanted Type Area Thread Tool Grinder Set Up Operator Device Identifier Shelf Expiration Date Model / Serial / Lot Baseplate #6 Tritanium - [id number] Implanted:Qty: 1 on 10/22/2019 by Sammy Higgins, DO at OR [facility] Left: Knee LISSET : ORTHOPAEDICS 07/23/2024 5536-B-600 / / [id number] Knee Triathlon Bead No Cuong L 6 - [id number] Implanted:Qty: 1 on 10/22/2019 by Sammy Higgins, at OR [facility] Left: Knee LISSET : ORTHOPAEDICS 07/09/2024 5517-F-601 / / [id number] Patella Symmetric S33mm 9mm - [id number] Implanted:Qty: 1 on 10/22/2019 by Sammy Higgins DO at OR [facility] Left: Knee LISSET : ORTHOPAEDICS 10/29/2023 5556-L-339 / / [id number] Triathlon X3 Tibial Bearing Insert Cs Ramirez 6 Typ Cs Thkns 10mm Implanted:Qty: 1 on 10/22/2019 by Sammy Higgins DO at OR [facility] Left: Knee 01/07/2024 5531-G-610 -E / / [id number] documented as of this encounter Advance Directives Documents on File Type Date Recorded Patient Dry House Operator Expl anation Advance Directives and Livin g Will 05/25/2017 LIVING WILL Power of Produce Wrapper 05/25/2017 POWER OF A TTORNEY * Full [...] and were consensually agreed upon. Care Teams Curriculum And Assessment Coordinator Relationship Specialty Start Date End Date Heron Hutchinson MD [address] [place] [address] PCP - General 03/28/1997 documented as of this encounter
--- OUTSIDE RECORDS SUMMARY | 2024-01-26 18:48 | External Medical Summary | Summary of Care ---
Author Name Unknown Organization [facility] Address [address] [place] [address] Phone [phone] Care Team Providers Care Backer Up Name Role Phone Heron Hutchinson MD Primary Care Provider [phone] Reason for Visit * Reason Onset Date Comments Test Results 01/17/2024 Encounter Details Date Type Department Care Team ([facility] st Contact Info) Description 01/17/2024 Telephone Laboratory, [place] [address] [place] [address] Sachi Hansen PA-C [address] [place] [address] Test Results Allergies No known [...] 3 04/01/2019 Atherosclerotic heart diseas e of [place] coronary artery without angina pectoris 04/01/2019 Secondary [...] BIPAP Plus set at 12 cwp [facility] current use of 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 Overview: ICD-10 [...] URI with cough 08/15/2014 018 ORBIT-[employer] Research Other*[id number] 07/12/2010 07/12/2013 Overview: PROJECT: #[id number], SPONSOR: Owen, PI: Ezio Johnson MD SUMMARY: [...] encounter can be closed. CONTACT: Ziyad Neely, Sap Hana Architect Chronic rhinitis 01/18/2010 08/15/2014 Elevated prostate specific [...] unexpected or indeterminate finding on Macario Oliver ([id number]) and asks that you review the following [...] reviewed. Thank you, CEE Pendleton Client Service [facility] documented in this encounter Plan of Treatment Upcoming Encounters Date Type Department Care Team (Latest Contact Info) Description 01/23/2024 7:40 AM EDT Anticoagulation Pharmacy, [place] [address] [place] [address] [place], [facility] [address] [facility] [place] [address] 01/26/2024 11:00 AM EDT Office Visit Cardiology, [facility] [place] [address] Diego George MD [address] [place] [address] 03/19/2024 3:30 PM EST Office Visit Cardiology, [facility] [place] [address] Tahira Jones PA-Aleksandr [address] [facility] [address] 04/25/2024 12:41 PM EST Hospital Encounter OR [facility], Operating Room, [facility] - 4th Floor [address] [place] [phone] Maria Teresa Quiroga, DO [address] [facility] [place] [address] 04/25/2024 12:41 PM EST - 04/25/2024 1:29 PM EST Surgery OR [facility], Operating Room, [facility] - 4th Floor [address] [place] [address] Maria Teresa Quiroga, DO [address] [facility] [place] [address] COLONOSCOPY FLEXIBLE PROXIMAL DIAGNOSTIC 09/17/2024 10:15 AM EDT Office Visit Urology, [facility] [place] [address] Zeus Davidson MD [address] [place] [address] Scheduled Procedures Name Priority Associated Diagnoses Date/Ti me COLONOSCOPY FLEXIBLE PROXIMA L DIAGNOSTIC Symptomatic anemia 04/25/2024 12:41 PM EST ESOPHAGOGASTRODUODENOSCOPY ( EGD), FLEXIBLE, TRANSORAL, DIAGNOSTIC Symptomatic anemia 04/25/2024 12:41 PM EST Health Maintenance Due Date Last Done Comments Adult Wellness Visit 06/01/2003 Albumin/Creatinine Ratio 12/21/2022 022, 10/11/2019, 05/22/2018 COVID-19 Vaccine ( season) 2023 04/17/2022, 02/06/2021, 05/29/2020, Additional history exists CKD PHOS USE SMARTSET 04518 12/30/202307/2022, 12/21/2021, 09/12/2018, Additional history exists CKD HGB USE SMARTSET 77271 12/27/202412/27, 12/28/2023, 12/15/2023, Additional history exists Depression [...] this encounter Medical Devices Implanted Type Area Therapist Speech Device Identifier Shelf Expiration Date Model / Serial / Lot Baseplate #6 Tritanium - [id number] Implanted:Qty: 1 on 10/22/2019 by Sammy Higgins, DO at OR [facility] Left: Knee LISSET : ORTHOPAEDICS 07/23/2024 5536-B-600 / / [id number] Knee Triathlon Bead No Cuong L 6 - [id number] Implanted:Qty: 1 on 10/22/2019 by Sammy Higgins, DO at OR [facility] Left: Knee LISSET : ORTHOPAEDICS 07/09/2024 5517-F-601 / / [id number] Patella Symmetric S33mm 9mm - [id number] Implanted:Qty: 1 on 10/22/2019 by Sammy Higgins, DO at OR [facility] Left: Knee LISSET : ORTHOPAEDICS 10/29/2023 5556-L-339 / / [id number] Triathlon X3 Tibial Bearing Insert Cs Ramirez 6 Typ Cs Thkns 10mm Implanted:Qty: 1 on 10/22/2019 by Sammy Higgins, DO at OR [facility] Left: Knee 01/07/2024 5531-G-610 -E / / [id number] documented as of this encounter Advance Directives Documents on File Type Date Recorded Patient Local Combination Truck Driver Expl anation Advance Directives and Livin g Will 05/25/2017 LIVING WILL Power of Metal Cleaner 05/25/2017 POWER OF A TTORNEY * Full [...] and were consensually agreed upon. Care Teams Backer Up Relationship Specialty Start Date End Date Heron Hutchinson MD [address] [place] [address] PCP - General 03/28/1997 documented as of this encounter
--- OUTSIDE RECORDS SUMMARY | 2024-01-26 18:48 | External Medical Summary | Summary of Care ---
Author Name Unknown Organization [facility] Address [address] [facility] [place] [address] Phone [phone] Care Team Providers Care Casino Floor Supervisor Name Role Phone Heron Hutchinson MD Primary Care Provider [phone] Reason for Visit * Reason Comments Dosage Adjustment Via Phone (anticoag Cl inic) Encounter Details Date Type Department Care Team (Latest Contact Info) Description 01/15/2024 5:10 PM EDT Anticoagulation Pharmacy, [address] [address] [facility] [address] [place] [address] Chronic atrial fibrillation (HCC)*; S/P TAVR (transcatheter aortic valve replacement) Allergies No known active allergiesdocumented as of this encounter (statuses as of 01/15/2024) Medications Medication Sig Dispensed Refills Start Date [...] as of this encounter (statuses as of 01/15/2024) Active Problems Problem Noted Date Diagnosed Date Chronic kidney disease, stage 3a 07/04/2022 Overview: Per CKD protocol Class 3 obesity 06/29/2022 Class 2 severe obesity due t o excess calories with serious comorbidity and body mass index (BMI) of 38.0 to 38.9 in adult 04/09/2020 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 failure and stage 3a chronic kidney disease 04/09/2020 Thoracic aortic ectasia 04/09/2020 Hypertensive kidney disease with stage 3a chronic kidney disease 02/03/2020 Overview: Per CKD protocol Status post total left knee replacement 10/22/19 20 Chronic diastolic congestive heart failure, NYHA class 3 04/01/2019 Atherosclerotic heart diseas e of [place] coronary artery without angina pectoris 04/01/2019 Secondary [...] Plus 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 CONTACT: Ziyad Neely, Fleet Administrative Assistant Chronic rhinitis 01/18/2010 08/15/2014 Elevated prostate specific antigen (PSA) 01/16/2002 03/26/2018 Benign prostatic hyperplasia 01/09/2002 03/26/2018 Overview: ICD-10 update of inactive term ICD-10 update of inactive term Anticoagulation management encounter 10/12/2001 03/26/2018 Open wound of forearm 09/01/20002017 Atrial fibrillation 09/25/1995 03/26/20 18 Dyslipidemia, goal to be determined 03/01/2013 documented as of this encounter (statuses as of 01/15/2024) Immunizations Name Administration Dates Next Due COVID-19 [...] as of this encounter Progress Notes * Jeanmarie Horton [facility] - 01/15/2024 8:17 AM EDT Patient Phone Numbers Currently pt scheduled out for 04/25 for endoscopy/colonoscopy, no earlier appt scheduled at this time. Pt and aware to contact the clinic if they hear about an earlier appt for the procedure so they can be provided with the proper hold instructions. Jeanmarie Horton, PharmD, BCACP, [facility] Clinical Pharmacist 01/15/2024, 8:23 AM documented in this encounter Plan of Treatment Upcoming Encounters Date Type Department Care Team (Latest Contact Info) Description 01/23/2024 7:40 AM EDT Anticoagulation Pharm[address] [place] [address] [facility] [address] [facility] [address] 01/26/2024 11:00 AM EDT Office Visit Cardiology, [facility] [address] [place] [address] Diego George MD [address] [place] [address] 03/19/2024 3:30 PM EST Office Visit Cardiology, [facility] [place] [address] Tahira Jones PA-C [address] [facility] [place] [address] 04/25/2024 12:41 PM EST Hospital Encounter [place], Operating Room, [facility] - 4th Floor [address] [place] [address] Maria Teresa Quiroga, DO [address] [place] [address] 04/25/2024 12:41 PM EST - 04/25/2024 1:29 PM EST Surgery OR [facility], Operating Room, [facility] - 4th Floor [address] [place] [address] Maria Teresa Quiroga, DO [address] [place] [address] COLONOSCOPY FLEXIBLE PROXIMAL DIAGNOSTIC 09/17/2024 10:15 AM EDT Office Visit Urology, [facility] [address] [place] [address] Zeus Davidson MD [address] [place] [address] Scheduled Procedures Name Priority Associated Diagnoses Date/Ti me COLONOSCOPY FLEXIBLE PROXIMA L DIAGNOSTIC Symptomatic anemia 04/25/2024 12:41 PM EST ESOPHAGOGASTRODUODENOSCOPY ( EGD), FLEXIBLE, TRANSORAL, DIAGNOSTIC Symptomatic anemia 04/25/2024 12:41 PM EST Health Maintenance Due Date Last Done Comments Adult Wellness Visit 06/01/2003 Albumin/Creatinine Ratio 12/21/2022 022, 10/11/2019, 05/22/2018 COVID-19 Vaccine ( season) 2023 04/17/2022, 02/06/2021, 05/29/2020, Additional history exists CKD PHOS USE SMARTSET 56954 12/30/202307/2022, 12/21/2021, 09/12/2018, Additional history exists *NEPHROLOGY 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 HTN 01/06/2024 CKD HGB USE SMARTSET 14238 12/27/202412/27, 12/28/2023, 12/15/2023, Additional history exists Depression [...] this encounter Medical Devices Implanted Type Area Blue Prints Trimmer Device Identifier Shelf Expiration Date Model / Serial / Lot Baseplate #6 Tritanium - [id number] Implanted:Qty: 1 on 10/22/2019 by Sammy Higgins, DO at [facility] Left: Knee LISSET : ORTHOPAEDICS 07/23/2024 5536-B-600 / / [id number] Knee Triathlon Bead No Cuong L 6 - [id number] Implanted:Qty: 1 on 10/22/2019 by Sammy Higgins, DO at [facility] Left: Knee LISSET : ORTHOPAEDICS 07/09/2024 5517-F-601 / / [id number] Patella Symmetric S33mm 9mm - [id number] Implanted:Qty: 1 on 10/22/2019 by Sammy Higgins, at OR [facility] Left: Knee LISSET : ORTHOPAEDICS 10/29/2023 5556-L-339 / / [id number] Triathlon X3 Tibial Bearing Insert Cs Ramirez 6 Typ Cs Thkns 10mm Implanted:Qty: 1 on 10/22/2019 by Sammy Higgins, at OR [facility] Left: Knee 01/07/2024 5531-G-610 -E / / [id number] documented as of this encounter Visit Diagnoses Diagnosis Chronic atrial fibrillation (HCC)- Primary Atrial fibrillation S/P TAVR (transcatheter aortic valve replacement) Heart valve replaced by other means Symptomatic anemia documented in this encounter Advance Directives Documents on File Type Date Recorded Patient Applications Packager Expl anation Advance Directives and Livin g Will 05/25/2017 LIVING WILL Power of Home Health Caregiver 05/25/2017 POWER OF A TTORNEY * Full [...] and were consensually agreed upon. Care Teams Casino Floor Supervisor Relationship Specialty Start Date End Date Heron Hutchinson MD [address] [facility] [place] [address] PCP - General 03/28/1997 documented as of this encounter
--- OUTSIDE RECORDS SUMMARY | 2024-01-26 18:48 | External Medical Summary | Summary of Care ---
Author Name Unknown Organization [facility] Address [address] [facility] [place] [address] Phone [phone] Care Team Providers Care Filing And Polishing Supervisor Name Role Phone Heron Hutchinson MD Primary Care Provider [phone] Reason for Visit * Reason Onset Date Comments Advice 01/12/2024 INR Encounter Details Date Type Department Care Team (Late st Contact Info) Description 01/12/2024 Telephone [facility] [address] [place] [address] Heron Hutchinson MD [address] [place] [address] Advice (INR) Allergies No known active allergiesdocumented as of this encounter (statuses as of 01/12/2024) Medications Medication Sig Dispensed Refills Start Date [...] as of this encounter (statuses as of 01/12/2024) Active Problems Problem Noted Date Diagnosed Date [...] 3 04/01/2019 Atherosclerotic heart diseas e of [place] coronary artery without angina pectoris 04/01/2019 Secondary [...] as of this encounter (statuses as of 01/12/2024) Resolved Problems Problem Noted Date Diagnosed Date [...] URI with cough 08/15/2014 018 ORBIT-[employer] Research Other*[id number] 07/12/2010 07/12/2013 Overview: PROJECT: #[id number], SPONSOR: Owen, PI: Ezio Johnson MD SUMMARY: [...] encounter can be closed. CONTACT: Ziyad Neely, Rand Cementer Chronic rhinitis 01/18/2010 08/15/2014 Elevated prostate specific antigen (PSA) 01/16/2002 03/26/2018 Benign prostatic hyperplasia 01/09/2002 03/26/2018 Overview: ICD-10 update of inactive term ICD-10 update of inactive term Anticoagulation management encounter 10/12/2001 03/26/2018 Open wound of forearm 09/01/20002017 Atrial fibrillation 09/25/1995 03/26/20 18 Dyslipidemia, goal to be determined 03/01/2013 documented as of this encounter (statuses as of 01/12/2024) Immunizations Name Administration Dates Next Due COVID-19 [...] encounter Miscellaneous Notes * Telephone Encounter - Consuelo Obregon LPN - 01/12/2024 12:07 PM EDT Pt's son Ziyad is calling. Just spoke with scheduling at [facility] to set up colonoscopy and endoscopy. They [...] upcoming gastro procedure. Caller was transferred to [facility] at the nurse line. documented in this encounter Plan of Treatment Upcoming Encounters Date Type Department Care Team (Latest Contact Info) Description 01/15/2024 5:10 PM EDT Anticoagulation Pharmacy, [place] [address] [facility], [place] [address] [facility] [address] [facility], [place] [address] 01/23/2024 7:40 AM EDT Anticoagulation Pharmacy, [place] [address] [facility], [place] [address] [facility] [address] [facility], [place] [address] 01/26/2024 11:00 AM EDT Office Visit Cardiology, [facility] [address] [place] [address] Diego George MD [address] [place] [address] 03/19/2024 3:30 PM EST Office Visit Cardiology, [facility] [address] [place] [address] Tahira Jones PA-C [address] [place] [address] 04/25/2024 12:41 PM EST Hospital Encounter [place] [facility], Operating Room, [facility] - 4th Floor [address] [address] Maria Teresa Quiroga DO [address] [place] [address] 04/25/2024 12:41 PM EST - 04/25/2024 1:29 PM EST Surgery [place] [facility], Operating Room, [facility] - 4th Floor [address] [place] [address] Maria Teresa Quiroga, [address] [place] [address] COLONOSCOPY FLEXIBLE PROXIMAL DIAGNOSTIC 09/17/2024 10:15 AM EDT Office Visit Urology, [facility] [address] [place] [address] Zeus Davidson MD [address] [place] [address] Scheduled Procedures Name Priority Associated Diagnoses Date/Ti me COLONOSCOPY FLEXIBLE PROXIMA L DIAGNOSTIC Symptomatic anemia 04/25/2024 12:41 PM EST ESOPHAGOGASTRODUODENOSCOPY ( EGD), FLEXIBLE, TRANSORAL, DIAGNOSTIC Symptomatic anemia 04/25/2024 12:41 PM EST Health Maintenance Due Date Last Done Comments Adult Wellness Visit 06/01/2003 Albumin/Creatinine Ratio 12/21/2022 022, 10/11/2019, 05/22/2018 COVID-19 Vaccine ( season) 2023 04/17/2022, 02/06/2021, 05/29/2020, Additional history exists CKD PHOS USE SMARTSET 78497 12/30/202307/2022, 12/21/2021, 09/12/2018, Additional history exists *NEPHROLOGY 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 HTN 01/06/2024 CKD HGB USE SMARTSET 62318 12/27/202412/27, 12/28/2023, 12/15/2023, Additional history exists Depression [...] this encounter Medical Devices Implanted Type Area Tester Sound Device Identifier Shelf Expiration Date Model / Serial / Lot Baseplate #6 Tritanium - [id number] Implanted:Qty: 1 on 10/22/2019 by Sammy Higgins DO at OR [facility] Left: Knee LISSET : ORTHOPAEDICS 07/23/2024 5536-B-600 / / [id number] Knee Triathlon Bead No Cuong L 6 - [id number] Implanted:Qty: 1 on 10/22/2019 by Sammy Higgins DO at OR [facility] Left: Knee LISSET : ORTHOPAEDICS 07/09/2024 5517-F-601 / / [id number] Patella Symmetric S33mm 9mm - [id number] Implanted:Qty: 1 on 10/22/2019 by Sammy Higgins DO at OR [facility] Left: Knee LISSET : ORTHOPAEDICS 10/29/2023 5556-L-339 / / [id number] Triathlon X3 Tibial Bearing Insert Cs Ramirez 6 Typ Cs Thkns 10mm Implanted:Qty: 1 on 10/22/2019 by Sammy Higgins DO at OR [facility] Left: Knee 01/07/2024 5531-G-610 -E / / [id number] documented as of this encounter Advance Directives Documents on File Type Date Recorded Patient Metrology Specialist Expl anation Advance Directives and Livin g Will 05/25/2017 LIVING WILL Power of Statistical Technician 05/25/2017 POWER OF A TTORNEY * Full [...] and were consensually agreed upon. Care Teams Filing And Polishing Supervisor Relationship Specialty Start Date End Date Heron Hutchinson MD [address] [place] [address] PCP - General 03/28/1997 documented as of this encounter
--- OUTSIDE RECORDS SUMMARY | 2024-01-26 18:48 | External Medical Summary | Summary of Care ---
Author Name Unknown Organization [facility] Address [address] , [place] Care Team Providers Care Area Director Of Home Health Sales Name Role Phone Heron Hutchinson MD Primary Care Provider [phone] Reason for Visit * Reason Onset Date Comments Procedure 01/12/2024 Encounter Details Date Type Department Care Team ([facility] st Contact Info) Description 01/12/2024 Telephone Pharmacy, [facility] [place] [address] [facility] [place] [address] [facility] [address] [facility] [place] [address] Procedure Allergies No known active allergiesdocumented as of [...] 3 04/01/2019 Atherosclerotic heart diseas e of [place] coronary artery without angina pectoris 04/01/2019 Secondary [...] URI with cough 08/15/2014 018 ORBIT-[employer] Research Other*[id number] 07/12/2010 07/12/2013 Overview: PROJECT: #[id number], SPONSOR: Owen, PI: Ezio Johnson MD SUMMARY: [...] encounter can be closed. CONTACT: Ziyad Neely, Administrative Asst Chronic rhinitis 01/18/2010 08/15/2014 Elevated prostate specific [...] encounter Miscellaneous Notes * Telephone Encounter - Shea Baez PHARM Tech - 01/12/2024 1:41 PM EDT Caller's name: Allen Preferred call back number(OFFICE NUMBER FOR ): Patient Phone Numbers Reason for call: Allen calling in to let pharmacist know that patient was unable to get scheduled for Monday for his procedure and they have him on the waiting list. Please advise and call patient's son back Thank you, Monico Baez Lead Manufacturing Engineering Tech [facility] ([facility]) 01/12/2024, 1:41 PM * Telephone Encounter - Taty Marte [facility] - 01/12/2024 1:13 PM EDT Spoke to patient's son, Allen, who states that the opening on Monday was not confirmed because the surgeon saw patient's INR today and that it was elevated. I informed Allen that if patient skips warfarin x 3 days, his INR is likely to be between 1.5-2.0 for the procedure. Advised then 7.5 mg x 2 days after procedure to restart the warfarin (as long as surgeon OK's this after procedure). Allen states that he will call to see if pt can be seen on Monday. I will check back later today with a phone call to Allen/family to see what plan is. Taty Marte, PharmD, BCACP Clinical Pharmacist Medication Therapy Disease Management 01/12/2024, 1:14 PM * Telephone Encounter - Anjali Santillan CPhT - 01/12/2024 12:17 PM EDT Caller's name: Allen Preferred call back number(OFFICE NUMBER FOR ): [phone] Reason for call: the GI doctor would like to do a dual procedure (EGD and Colonoscopy) on Monday, looking for a GI bleed, asking if the warfarin can be reversed? Anjali Santillan CPhT, DC Valet Runner II [facility] ([facility]) (formerly Telepharmacy) [address] [facility] [address] [place] [address] ext [phone] documented in this encounter Plan of Treatment Upcoming Encounters Date Type Department Care Team (Latest Contact Info) Description 01/23/2024 7:40 AM EDT Anticoagulation Pharmacy, [place] [address] [place] [address] [place], [facility] [address] [place] [address] 01/26/2024 11:00 AM EDT Office Visit Cardiology, [facility] [address] [place] [address] Diego George MD [address] [place] [address] 03/19/2024 3:30 PM EST Office Visit Cardiology, [facility] [address] [place] [address] Tahira Jones PA-C [address] [facility] [place] [address] 04/25/2024 12:41 PM EST Hospital Encounter OR [facility], Operating Room, [facility] - 4th Floor [facility] [address] Maria Teresa Quiroga, DO [address] [facility] [place] [address] 04/25/2024 12:41 PM EST - 04/25/2024 1:29 PM EST Surgery OR [facility], Operating Room, [facility] - 4th Floor [address] [facility] [place] [address] Maria Teresa Quiroga, DO [address] [place] [address] COLONOSCOPY FLEXIBLE PROXIMAL DIAGNOSTIC 09/17/2024 10:15 AM EDT Office Visit Urology, [facility] [address] [place] [address] Zeus Davidson MD [address] [place] [address] Scheduled Procedures Name Priority Associated Diagnoses Date/Ti ct COLONOSCOPY FLEXIBLE PROXIMA L DIAGNOSTIC Symptomatic anemia 04/25/2024 12:41 PM EST ESOPHAGOGASTRODUODENOSCOPY ( EGD), FLEXIBLE, TRANSORAL, DIAGNOSTIC Symptomatic anemia 04/25/2024 12:41 PM EST Health Maintenance Due Date Last Done Comments Adult Wellness Visit 06/01/2003 Albumin/Creatinine Ratio 12/21/2022 022, 10/11/2019, 05/22/2018 COVID-19 Vaccine ( season) 2023 04/17/2022, 02/06/2021, 05/29/2020, Additional history exists CKD PHOS USE SMARTSET 69582 12/30/202307/2022, 12/21/2021, 09/12/2018, Additional history exists *NEPHROLOGY 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 HTN 01/06/2024 CKD HGB USE SMARTSET 91249 12/27/202412/27, 12/28/2023, 12/15/2023, Additional history exists Depression [...] this encounter Medical Devices Implanted Type Area Dictaphone Typist Device Identifier Shelf Expiration Date Model / Serial / Lot Baseplate #6 Tritanium - [id number] Implanted:Qty: 1 on 10/22/2019 by Sammy Higgins, DO at OR [facility] Left: Knee LISSET : ORTHOPAEDICS 07/23/2024 5536-B-600 / / [id number] Knee Triathlon Bead No Cuong L 6 - [id number] Implanted:Qty: 1 on 10/22/2019 by Sammy Higgins, DO at OR [facility] Left: Knee LISSET : ORTHOPAEDICS 07/09/2024 5517-F-601 / / [id number] Patella Symmetric S33mm 9mm - [id number] Implanted:Qty: 1 on 10/22/2019 by Sammy Higgins, DO at OR [facility] Left: Knee LISSET : ORTHOPAEDICS 10/29/2023 5556-L-339 / / [id number] Triathlon X3 Tibial Bearing Insert Cs Ramirez 6 Typ Cs Thkns 10mm Implanted:Qty: 1 on 10/22/2019 by Sammy Higgins, DO at OR [facility] Left: Knee 01/07/2024 5531-G-610 -E / / [id number] documented as of this encounter Visit Diagnoses Diagnosis Chronic atrial fibrillation (HCC)- Primary Atrial fibrillation S/P TAVR (transcatheter aortic valve replacement) Heart valve replaced by other means Symptomatic anemia documented in this encounter Advance Directives Documents on File Type Date Recorded Patient Deckhand Expl anation Advance Directives and Livin g Will 05/25/2017 LIVING WILL Power of Eligibility Worker 05/25/2017 POWER OF A TTORNEY * Full [...] 2:33 PM 11/08/2018 4:02 PM This order reflects the patients wishes and were consensually agreed upon. Care Teams Area Director Of Home Health Sales Relationship Specialty Start Date End Date Heron Hutchinson MD [address] [facility] [place] [address] PCP - General 03/28/1997 documented as of this encounter
--- OUTSIDE RECORDS SUMMARY | 2024-01-26 18:48 | External Medical Summary | Summary of Care ---
Author Name Unknown Organization [facility] Address [address] , [place] Care Team Providers Care Apartment Maintenance Supervisor Name Role Phone Heron Hutchinson MD Primary Care Provider Reason for Visit * Reason Onset Date Comments Procedure 01/12/2024 Encounter Details Date Type Department Care Team ([facility] st Contact Info) Description 01/12/2024 Telephone Pharmacy, [facility] [place] [address] [facility] [place] [address] [facility] [address] [facility] [place] [address] Procedure Allergies No known active allergiesdocumented as [...] 3 04/01/2019 Atherosclerotic heart diseas e of [place] coronary artery without angina pectoris 04/01/2019 [...] BIPAP Plus set at 12 cwp 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 CONTACT: Ziyad Neely, Sports Intern Chronic rhinitis 01/18/2010 08/15/2014 Elevated prostate specific [...] Telephone Encounter - Taty Marte RPh - 01/12/2024 1:13 PM EDT Spoke to [...] 01/12/2024 12:17 PM EDT Caller's name: Allen Castellano call back number(OFFICE NUMBER FOR ): [phone] Reason for call: the GI doctor would like to do a dual procedure (EGD and Colonoscopy) on Monday, looking for a GI bleed, asking if the warfarin can be reversed? Anjali Santillan CPhT, OR Topstitcher Zigzag II [facility] ([facility]) (formerly Telepharmacy) [address] [facility] [address] [place] [address] ext [phone] documented in this encounter Plan of Treatment Upcoming Encounters Date Type Department Care Team (Latest Contact Info) Description 01/23/2024 7:40 AM EDT [facility] [place] [address] [place] [address] [facility] [address] [place] [address] 01/26/2024 11:00 AM EDT Office Visit Cardiology, [facility] 132 [facility] [place] [address] Diego George MD 132 [facility] [place] [address] 03/19/2024 3:30 PM EST Office Visit Cardiology, [facility] [address] [facility] [place] [address] Tahira Jones PA-C [address] [place] [address] 04/25/2024 12:41 PM EST Hospital Encounter OR [facility], Operating Room, [facility] - 4th Floor 400 [place] [phone] Maria Teresa Quiroga DO [address] [place] [address] 04/25/2024 12:41 PM EST - 04/25/2024 1:29 PM EST Surgery OR [facility], Operating Room, [facility] - 4th Floor [address] [place] [address] Maria Teresa Quiroga, DO [address] [place] [address] COLONOSCOPY FLEXIBLE PROXIMAL DIAGNOSTIC 09/17/2024 10:15 AM EDT Office Visit Urology, [facility] [address] [place] [address] Zeus Davidson MD [address] [place] [address] Scheduled Procedures Name Priority Associated Diagnoses Date/Ti me COLONOSCOPY FLEXIBLE PROXIMA L DIAGNOSTIC Symptomatic anemia 04/25/2024 12:41 PM EST ESOPHAGOGASTRODUODENOSCOPY ( EGD), FLEXIBLE, TRANSORAL, DIAGNOSTIC Symptomatic anemia 04/25/2024 12:41 PM EST Health Maintenance Due Date Last Done Comments Adult Wellness Visit 06/01/2003 Albumin/Creatinine Ratio 12/21/2022 022, 10/11/2019, 05/22/2018 COVID-19 Vaccine ( season) 2023 04/17/2022, 02/06/2021, 05/29/2020, Additional history exists CKD PHOS USE SMARTSET 13450 12/30/2023 1007/2022, 12/21/2021, 09/12/2018, Additional history exists *NEPHROLOGY 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 HTN 01/06/2024 CKD HGB USE SMARTSET 46192 12/27/202412/27, 12/28/2023, 12/15/2023, Additional history exists Depression [...] this encounter Medical Devices Implanted Type Area Clinical Data Associate Device Identifier Shelf Expiration Date Model / Serial / Lot Baseplate #6 Tritanium - [id number] Implanted:Qty: 1 on 10/22/2019 by Sammy Higgins DO at OR [facility] Left: Knee LISSET : ORTHOPAEDICS 07/23/2024 5536-B-600 / / [id number] Knee Triathlon Bead No Cuong L 6 - [id number] Implanted:Qty: 1 on 10/22/2019 by Sammy Higgins DO at OR [facility] Left: Knee LISSET : ORTHOPAEDICS 07/09/2024 5517-F-601 / / [id number] Patella Symmetric S33mm 9mm - [id number] Implanted:Qty: 1 on 10/22/2019 by Sammy Higgins DO at OR [facility] Left: Knee LISSET : ORTHOPAEDICS 10/29/2023 5556-L-339 / / [id number] Triathlon X3 Tibial Bearing Insert Cs Ramirez 6 Typ Cs Thkns 10mm Implanted:Qty: 1 on 10/22/2019 by Sammy Higgins DO at OR [facility] Left: Knee 01/07/2024 5531-G-610 -E / / [id number] documented as of this encounter Visit Diagnoses Diagnosis Chronic atrial fibrillation (HCC)- Primary Atrial fibrillation S/P TAVR (transcatheter aortic valve replacement) Heart valve replaced by other means Symptomatic anemia documented in this encounter Advance Directives Documents on File Type Date Recorded Patient Financial Wellness Coach Expl anation Advance Directives and Livin g Will 05/25/2017 LIVING WILL Power of Admission Liaison 05/25/2017 POWER OF A TTORNEY * Full [...] and were consensually agreed upon. Care Teams Apartment Maintenance Supervisor Relationship Specialty Start Date End Date Heron Hutchinson MD [address] [place] [address] PCP - General 03/28/1997 documented as of this encounter
--- OUTSIDE RECORDS SUMMARY | 2024-01-26 18:48 | External Medical Summary | Summary of Care ---
Author Name Unknown Organization [facility] Address [address] [facility] [place] [address] Phone [phone] Care Team Providers Care Er Tech Name Role Phone Heron Hutchinson MD Primary Care Provider [phone] Reason for Visit * Reason Comments Acute Pt states that he thompson s a bump on his R elbow. 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); Class 3 obesity Allergies No known active allergiesdocumented as of this encounter (statuses as of 01/16/2024) Medications Medication Sig Dispensed Refills Start Date [...] as of this encounter (statuses as of 01/16/2024) Active Problems Problem Noted Date Diagnosed Date [...] 3 04/01/2019 Atherosclerotic heart diseas e of [place] coronary artery without angina pectoris 04/01/2019 Secondary [...] BIPAP Plus set at 12 cwp 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 CONTACT: Ziyad Neely, Field Rep Chronic rhinitis 01/18/2010 08/15/2014 Elevated prostate specific antigen (PSA) 01/16/2002 03/26/2018 Benign prostatic hyperplasia 01/09/2002 03/26/2018 Overview: ICD-10 update of inactive term ICD-10 update of inactive term Anticoagulation management encounter 10/12/2001 03/26/2018 Open wound of forearm 09/01/20002017 Atrial fibrillation 09/25/1995 03/26/20 18 Dyslipidemia, goal to be determined 03/01/2013 documented as of this encounter (statuses as of 01/16/2024) Immunizations Name Administration Dates Next Due COVID-19 [...] Date Smoking Tobacco: Never Smokeless Tobacco: Never Tobacco Cessation:Counseling Given: Not Answered Alcohol Use Standard Drinks/Week Comments No 0 [...] on file documented as of this encounter Last Filed Vital Signs Vital Sign Reading Time Taken Comments Blood Pressure 136/82 01/16/2024 12:48 PM EDT Pulse 81 01/16/2024 12:48 PM EDT Temperature 36.5 C (97.7 F) 01/16/2024 12:48 PM E DT Respiratory Rate 16 01/16/2024 12:48 PM EDT Oxygen Saturation 92% 01/16/2024 12:48 PM EDT Inhaled Oxygen Concentration - - Weight 87.4 kg (192 lb 9.6 oz) 01/16/2024 12:48 PM EDT Height 165.1 cm (5' 5") 01/16/2024 12:48 PM EDT Body Mass Index 32.05 01/16/2024 12:48 PM EDT documented in this encounter Functional Status Functional Status Response [...] shopping? (15 years old or older) No 07/28/20 20 Cognitive Status Response Date of Assessm ent Because of a physical, menta l, or emotional condition, do you have serious difficulty concentrating, remembering, or making decisions? (5 years old or older) No 10/22/2019 documented as of this encounter Progress Notes * Sachi Hansen PA-C - 01/16/2024 1:02 PM EDT Images from the original note were not included. History of Present Illness Macario Oliver is a 88 year old male that presents for Acute (Pt states that he has a bump on his R elbow. Noticed it last week ) Here for a bump on his R arm, this is on his elbow , offset to the side. Soft No pain No trauma that he is aware or Not getting bigger that he is aware of NOT ILL FROM THIS AT ALL. They do have a cat Physical Exam Vitals: 01/16/24 1248 Temp: 36.5 C (97.7 F) Pulse: 81 Resp: 16 SpO2: 92% BP: 136/82 BMI: 32.05 BP Readings from Last 3 Encounters: 01/16/24 136/82 01/04/24 167/83 12/28/23 92/68 Wt Readings from Last 3 Encounters: 01/16/24 87.4 kg (192 lb 9.6 oz) 01/04/24 88.6 kg (195 lb 6.4 oz) 12/28/23 89.4 kg (197 lb 3.2 oz) BMI Readings from Last 3 Encounters: 01/16/24 32.05 kg/m 01/04/24 32.52 kg/m 12/28/23 32.82 kg/m Ht Readings from Last 3 Encounters: 01/16/24 1.651 m (5' 5") 01/04/24 1.651 m (5' 5") 12/28/23 1.651 m (5' 5") General: alert, healthy, and no distress Head: Normocephalic, No masses, lesions, tenderness or abnormalities Extremities: less than 2 second capillary refill, R elbow he has a large 4 cm round raised mass - this has the feel of a bursitis but the location is not overlying the olecranon - it is more lateral Assessment and Plan Acquired deformity of right elbow (Primary) - US EXTREMITY, NON-VASCULAR LIMITED; Future; Expected date: 01/16/2024 Chronic atrial fibrillation (HCC) - on coumadin Atherosclerosis of [place] coronary artery without angina pectoris, unspecified whether [place] or transplanted heart - on lipitor Dyslipidemia, goal LDL below 100 Metastatic carcinoma to lung, unspecified laterality (HCC) 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 Follow Up: Return in about 6 months (around 07/16/2024) for reg return with PCP . | For: reg return with PCP | Check-out note: Return with [facility] Wrap-Up Bursitis vs swollen node Time: I spent a total of 10-19 minutes (exact time 19 mins) on the date of service in preparation, delivery, and documentation of the care provided to Macario Oliver excluding any time spent in the performance of separately billed services. Sachi Hansen PA-C 01/16/2024 1:11 PM * Sachi Hansen PA-C - 01/16/2024 12:50 PM EDT Sachi Hansen PA-C 01/16/2024 1:14 PM documented in this encounter Nursing Notes * Yaritza Juarez LPN - 01/16/2024 12:48 PM EDT Macario Oliver is a 88 year old male who presents today for Chief Complaint Patient presents with Acute Pt states that he has a bump on his R elbow. Noticed it last week documented in this encounter Plan of Treatment Upcoming Encounters Date Type Department Care Team (Latest Contact Info) Description 01/17/2024 9:45 AM EDT Imaging [address] [address] 01/23/2024 7:40 AM EDT Anticoagulation Pharmacy, [place] [address] [facility] [place] [address] [facility] [address] [facility] [place] [address] 01/26/2024 11:00 AM EDT Office Visit Cardiology, [facility] [address] [place] [address] Diego George MD [address] [place] [address] 03/19/2024 3:30 PM EST Office Visit Cardiology, [facility] [place] [address] Tahira Jones PA-Aleksandr [address] [place] [address] 04/25/2024 12:41 PM EST Hospital Encounter OR [facility], Operating Room, [facility] - 4th Floor [address] [place] [address] Maria Teresa Quiroga, DO [address] [place] [address] 04/25/2024 12:41 PM EST - 04/25/2024 1:29 PM EST Surgery OR [facility], Operating Room, [facility] - 4th Floor [address] [place] [address] Maria Teresa Quiroga, DO [address] [place] [address] COLONOSCOPY FLEXIBLE PROXIMAL DIAGNOSTIC 09/17/2024 10:15 AM EDT Office Visit Urology, [facility] [address] [place] [address] Zeus Davidson MD [address] [place] [address] Scheduled Orders Name Type Priority Associated Diagnoses Orde r Schedule US EXTREMITY, NON-VASCULAR LIMITED Medical Imaging Routine Acquired deformity of right elbow Expected: 01/16/2024, Expires: 02/15/2025 Scheduled Procedures Name Priority Associated Diagnoses Date/Ti me COLONOSCOPY FLEXIBLE PROXIMA L DIAGNOSTIC Symptomatic anemia 04/25/2024 12:41 PM EST ESOPHAGOGASTRODUODENOSCOPY ( EGD), FLEXIBLE, TRANSORAL, DIAGNOSTIC Symptomatic anemia 04/25/2024 12:41 PM EST Health Maintenance Due Date Last Done Comments Adult Wellness Visit 06/01/2003 Albumin/Creatinine Ratio 12/21/2022 022, 10/11/2019, 05/22/2018 COVID-19 Vaccine ( season) 2023 04/17/2022, 02/06/2021, 05/29/2020, Additional history exists CKD PHOS USE SMARTSET 82992 12/30/202307/2022, 12/21/2021, 09/12/2018, Additional history exists *NEPHROLOGY 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 HTN 01/06/2024 CKD HGB USE SMARTSET 64671 12/27/202412/27, 12/28/2023, 12/15/2023, Additional history exists Depression [...] this encounter Medical Devices Implanted Type Area Dinker Device Identifier Shelf Expiration Date Model / Serial / Lot Baseplate #6 Tritanium - [id number] Implanted:Qty: 1 on 10/22/2019 by Sammy Higgins, DO at OR [facility] Left: Knee LISSET : ORTHOPAEDICS 07/23/2024 5536-B-600 / / [id number] Knee Triathlon Bead No Cuong L 6 - [id number] Implanted:Qty: 1 on 10/22/2019 by Sammy Higgins DO at OR [facility] Left: Knee LISSET : ORTHOPAEDICS 07/09/2024 5517-F-601 / / [id number] Patella Symmetric S33mm 9mm - [id number] Implanted:Qty: 1 on 10/22/2019 by Sammy Higgins DO at OR [facility] Left: Knee LISSET : ORTHOPAEDICS 10/29/2023 5556-L-339 / / [id number] Triathlon X3 Tibial Bearing Insert Cs Ramirez 6 Typ Cs Thkns 10mm Implanted:Qty: 1 on 10/22/2019 by Sammy Higgins DO at OR [facility] Left: Knee 01/07/2024 5531-G-610 -E / / [id number] documented as of this encounter Visit Diagnoses Diagnosis Acquired deformity of right elbow- Primary Chronic atrial fibrillation (HCC) Atrial fibrillation Atherosclerosis of [place] coronary artery without angina pectoris, unspecified whether [place] or transplanted heart Dyslipidemia, goal LDL below 100 Other and unspecified hyperlipidemia Metastatic carcinoma to lung, unspecified laterality (HCC) 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 Care Teams Er Tech Relationship Specialty Start Date End Date Heron Hutchinson MD [address] [place] [address] PCP - General 03/28/1997 documented as of this encounter
--- OUTSIDE RECORDS SUMMARY | 2024-01-26 18:48 | External Medical Summary | Summary of Care ---
Author Name Unknown Organization [facility] Address [address] , [place] Care Team Providers Care Mortgage Or Loan Underwriter Name Role Phone Heron Hutchinson MD Primary Care Provider [phone] Reason for Visit * Reason Onset Date Comments Procedure 01/12/2024 Encounter Details Date Type Department Care Team ([facility] st Contact Info) Description 01/12/2024 Telephone Pharmacy, [facility] [place] [address] [facility] [place] [address] [facility] [address] [facility] [place] [address] Procedure Allergies No known active allergiesdocumented as [...] 3 04/01/2019 Atherosclerotic heart diseas e of [place] coronary artery without angina pectoris 04/01/2019 Secondary [...] URI with cough 08/15/2014 018 [employer] Other*[id number] 07/12/2010 07/12/2013 Overview: PROJECT: #[id number], SPONSOR: Owen, PI: Ezio Johnson MD SUMMARY: [...] encounter can be closed. CONTACT: Ziyad Neely, Wet Plant Operator Chronic rhinitis 01/18/2010 08/15/2014 Elevated prostate specific [...] Encounter - Taty Marte RPh - 01/12/2024 3:19 PM EDT Patient Phone Numbers Returned call, no answer, left message that [facility] will follow up on Monday to touch base with family to see if procedure has yet been scheduled. Patient to follow dosing instructions that were previously discussed at visit today. Taty Marte PharmD, BCACP Clinical Pharmacist Medication Therapy Disease Management 01/12/2024, 3:20 PM * Telephone Encounter - Shea Baez PHARM [...] patient's son back Thank you, Monico Baez Hearing Aid Repair Technician [facility] 01/12/2024, 1:41 PM * Telephone Encounter - Taty Marte [facility] - 01/12/2024 1:13 PM EDT Spoke to [...] to see what plan is. Taty Marte, Kale, [facility] Clinical Pharmacist Medication Therapy Disease Management 01/12/2024, 1:14 PM * Telephone Encounter - Anjali Santillan CPhT - 01/12/2024 12:17 PM EDT Caller's name: Allen Preferred call back number(OFFICE NUMBER FOR ): [phone] Reason for call: the GI doctor would like to do a dual procedure (EGD and Colonoscopy) on Monday, looking for a GI bleed, asking if the warfarin can be reversed? Anjali Santillan CPhT, [place] Mixer Operator Hot Metal II [facility] ([facility]) (formerly Telepharmacy) [address] [facility] [address] [place] [address] ext [phone] documented in this encounter Plan of Treatment Upcoming Encounters Date Type Department Care Team (Latest Contact Info) Description 01/15/2024 5:10 PM EDT Anticoagulation Pharmacy, [place] [address] [place] [address] [place] [address] [place] [facility] [address] 01/23/2024 7:40 AM EDT Anticoagulation Pharmacy, [place] [address] [place] [facility] [address] [facility] [address] [place] [facility] [address] 01/26/2024 11:00 AM EDT Office Visit Cardiology, [facility] [address] [place] [address] Diego George MD [address] [place] [address] 03/19/2024 3:30 PM EST Office Visit Cardiology, [facility] [address] [place] [address] Tahira Jones PA-C [address] [place] [address] 04/25/2024 12:41 PM EST Hospital Encounter OR [facility], Operating Room, [facility] - 4th Floor [address] [place] [phone] Maria Teresa Quiroga DO [address] [place] [address] 04/25/2024 12:41 PM EST - 04/25/2024 1:29 PM EST Surgery OR [facility], Operating Room, [facility] - 4th Floor [address] [place] [phone] Maria Teresa Quiroga, DO [address] [place] [address] COLONOSCOPY FLEXIBLE PROXIMAL DIAGNOSTIC 09/17/2024 10:15 AM EDT Office Visit Urology, [facility] [address] [place] [address] Zeus Davidson MD [address] [facility] [place] [address] Scheduled Procedures Name Priority Associated Diagnoses Date/Ti me COLONOSCOPY FLEXIBLE PROXIMA L DIAGNOSTIC Symptomatic anemia 04/25/2024 12:41 PM EST ESOPHAGOGASTRODUODENOSCOPY ( EGD), FLEXIBLE, TRANSORAL, DIAGNOSTIC Symptomatic anemia 04/25/2024 12:41 PM EST Health Maintenance Due Date Last Done Comments Adult Wellness Visit 06/01/2003 Albumin/Creatinine Ratio 12/21/2022 022, 10/11/2019, 05/22/2018 COVID-19 Vaccine ( season) 2023 04/17/2022, 02/06/2021, 05/29/2020, Additional history exists CKD PHOS USE SMARTSET 84190 12/30/202307/2022, 12/21/2021, 09/12/2018, Additional history exists *NEPHROLOGY 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 HTN 01/06/2024 CKD HGB USE SMARTSET 02753 12/27/202412/27, 12/28/2023, 12/15/2023, Additional history exists Depression [...] this encounter Medical Devices Implanted Type Area Rn Baby Device Identifier Shelf Expiration Date Model / Serial / Lot Baseplate #6 Tritanium - [id number] Implanted:Qty: 1 on 10/22/2019 by Sammy Higgins, DO at OR [facility] Left: Knee LISSET : ORTHOPAEDICS 07/23/2024 5536-B-600 / / [id number] Knee Triathlon Bead No Cuong L 6 - [id number] Implanted:Qty: 1 on 10/22/2019 by Sammy Higgins DO at OR [facility] Left: Knee LISSET : ORTHOPAEDICS 07/09/2024 5517-F-601 / / [id number] Patella Symmetric S33mm 9mm - [id number] Implanted:Qty: 1 on 10/22/2019 by Sammy Higgins, at OR [facility] Left: Knee LISSET : ORTHOPAEDICS 10/29/2023 5556-L-339 / / [id number] Triathlon X3 Tibial Bearing Insert Cs Ramirez 6 Typ Cs Thkns 10mm Implanted:Qty: 1 on 10/22/2019 by Sammy Higgins DO at OR [facility] Left: Knee 01/07/2024 5531-G-610 -E / / [id number] documented as of this encounter Visit Diagnoses Diagnosis Chronic atrial fibrillation (HCC)- Primary Atrial fibrillation S/P TAVR (transcatheter aortic valve replacement) Heart valve replaced by other means Symptomatic anemia documented in this encounter Advance Directives Documents on File Type Date Recorded Patient Quality Assurance Monitor Body Expl anation Advance Directives and Zac lora Will 05/25/2017 LIVING WILL Power of Mounted Police 05/25/2017 POWER OF A TTORNEY * Full [...] and were consensually agreed upon. Care Teams Mortgage Or Loan Underwriter Relationship Specialty Start Date End Date Heron Hutchinson MD [address] [facility] [place] [address] PCP - General 03/28/1997 documented as of this encounter
--- OUTSIDE RECORDS SUMMARY | 2024-01-26 18:48 | External Medical Summary | Summary of Care ---
Author Name Unknown Organization [facility] Address [address] [facility] [place] [address] Phone [phone] Care Team Providers Care Senior Electronics Engineer Name Role Phone Heron Hutchinson MD Primary Care Provider [phone] Reason for Visit * Reason Onset Date Comments Advice 01/17/2024 Blood in BM Encounter Details Date Type Department Care Team (Late st Contact Info) Description 01/17/2024 Telephone [facility] [address] [place] [address] Heron Hutchinson MD [address] [place] [address] Advice (Blood in BM) Allergies No known active allergiesdocumented as of [...] 3 04/01/2019 Atherosclerotic heart diseas e of [place] coronary artery without angina pectoris 04/01/2019 Secondary [...] URI with cough 08/15/2014 018 ORBIT-[employer] Research Other*[id number] 07/12/2010 07/12/2013 Overview: PROJECT: #[id number], SPONSOR: Owen, PI: Ezio Johnson MD SUMMARY: [...] encounter can be closed. CONTACT: Ziyad Neely, Manufacturing Engineering Technologist Chronic rhinitis 01/18/2010 08/15/2014 Elevated prostate [...] Telephone Encounter - Taty Marte RPh - 01/18/2024 8:43 AM EDT Noted by [facility]. I will target 1.5-2.0 until otherwise instructed. I will send pt for CBC after INR fingerstick on 01/22. Thanks! Taty Marte, PharmD, BCACP Clinical Pharmacist Medication Therapy Disease Management 01/18/2024, 8:43 AM * Telephone Encounter - Heron Hutchinson MD - 01/18/2024 8:24 AM EDT At present he is not scheduled for endoscopy until 04/25/23. Hopefully we will get sooner apt. Recommend continue coumadin but change INR goal from 2-3 to 1.5- 2.0. Discussed with Taty Marte RP. Also need cbc with next office visit for INR ie 01/23/24. * Telephone Encounter - Heron Hutchinson MD - 01/17/2024 1:48 PM EDT Notify : This is not surprising. He likely is bleeding (probably intermittently) from large colon. We still do not know exactly why. He needs the colonoscopy which unfortunately is not scheduled until . Hopefully a cancellation will allow for sooner study. I will message Lily Rollins to see if she might be able to get colonoscopy scheduled earlier. * Telephone Encounter - Hina Renee LPN - 01/17/2024 10:40 AM EDT Please advise, thank you! * Telephone Encounter - Laura Cruz OSA - 01/17/2024 7:35 AM EDT calling states passed a clot in BM this morning and is now fine. He is having an US this morning and he is going to still do this, but wanted to make Dr Hutchinson aware of what happened this morning because it is concerning to her. His US is at 9:30 this morning. Just an FYI documented in this encounter Plan of Treatment Upcoming Encounters Date Type Department Care Team (Latest Contact Info) Description 01/23/2024 7:40 AM EDT [facility] [place] [address] [facility] [address] [facility] [address] [place] [facility] [place] [address] 01/26/2024 11:00 AM EDT Office Visit Cardiology, [facility] [address] [place] [address] Diego George MD [address] [place] [address] 03/19/2024 3:30 PM EST Office Visit Cardiology, [facility] [address] [place] [address] Tahira Jones PA-C [address] [facility] [place] [address] 04/25/2024 12:41 PM EST Hospital Encounter OR [facility], Operating Room, [facility] - 4th Floor [address] [place] [phone] Maria Teresa Quiroga, DO [address] [facility] [place] [address] 04/25/2024 12:41 PM EST - 04/25/2024 1:29 PM EST Surgery OR [facility], Operating Room, [facility] - 4th Floor [address] [place] [phone] Maria Teresa Quiroga, DO [address] [place] [address] COLONOSCOPY FLEXIBLE PROXIMAL DIAGNOSTIC 09/17/2024 10:15 AM EDT Office Visit Urology, [facility] [address] [place] [address] Zeus [place] MD [address] [place] [address] Scheduled Procedures Name Priority Associated Diagnoses Date/Ti me COLONOSCOPY FLEXIBLE PROXIMA L DIAGNOSTIC Symptomatic anemia 04/25/2024 12:41 PM EST ESOPHAGOGASTRODUODENOSCOPY ( EGD), FLEXIBLE, TRANSORAL, DIAGNOSTIC Symptomatic anemia 04/25/2024 12:41 PM EST Health Maintenance Due Date Last Done Comments Adult Wellness Visit 06/01/2003 Albumin/Creatinine Ratio 12/21/2022 022, 10/11/2019, 05/22/2018 COVID-19 Vaccine ( season) 2023 04/17/2022, 02/06/2021, 05/29/2020, Additional history exists CKD PHOS USE SMARTSET 75733 12/30/2023 10/0 07/2022, 12/21/2021, 09/12/2018, Additional history exists CKD HGB USE SMARTSET 14282 12/27/202412/27, 12/28/2023, 12/15/2023, Additional history exists Depression [...] this encounter Medical Devices Implanted Type Area Internet Marketing Executive Device Identifier Shelf Expiration Date Model / Serial / Lot Baseplate #6 Tritanium - [id number] Implanted:Qty: 1 on 10/22/2019 by Sammy Higgins, DO at OR [facility] Left: Knee LISSET : ORTHOPAEDICS 07/23/2024 5536-B-600 / / [id number] Knee Triathlon Bead No Cuong L 6 - [id number] Implanted:Qty: 1 on 10/22/2019 by Sammy Higgins, DO at OR [facility] Left: Knee LISSET : ORTHOPAEDICS 07/09/2024 5517-F-601 / / [id number] Patella Symmetric S33mm 9mm - [id number] Implanted:Qty: 1 on 10/22/2019 by Sammy Higgins, DO at OR [facility] Left: Knee LISSET : ORTHOPAEDICS 10/29/2023 5556-L-339 / / [id number] Triathlon X3 Tibial Bearing Insert Cs Ramirez 6 Typ Cs Thkns 10mm Implanted:Qty: 1 on 10/22/2019 by Sammy Higgins, DO at OR [facility] Left: Knee 01/07/2024 5531-G-610 -E / / [id number] documented as of this encounter Visit Diagnoses Diagnosis Chronic atrial fibrillation (HCC)- Primary Atrial fibrillation S/P TAVR (transcatheter aortic valve replacement) Heart valve replaced by other means Symptomatic anemia documented in this encounter Advance Directives Documents on File Type Date Recorded Patient Blind Aide Expl anation Advance Directives and Livin g Will 05/25/2017 LIVING WILL Power of Relay Telegrapher 05/25/2017 POWER OF A TTORNEY * Full [...] and were consensually agreed upon. Care Teams Senior Electronics Engineer Relationship Specialty Start Date End Date Heron Hutchinson MD [address] [place] [address] PCP - General 03/28/1997 documented as of this encounter
--- OUTSIDE RECORDS SUMMARY | 2024-01-26 18:48 | External Medical Summary | Summary of Care ---
Author Name Unknown Organization [facility] Address [address] [place] [address] Phone [phone] Care Team Providers Care Account Strategist Name Role Phone Heron Hutchinson MD Primary Care Provider [phone] Reason for Visit * Reason Onset Date Comments Test Results 01/17/2024 Encounter Details Date Type Department Care Team ([facility] st Contact Info) Description 01/17/2024 Telephone Laboratory, [place] [address] [place] [address] Sachi Hansen PA-C [address] [place] [address] Test Results Allergies No known [...] 3 04/01/2019 Atherosclerotic heart diseas e of [place] coronary artery without angina pectoris 04/01/2019 Secondary [...] Plus set at 12 cwp AHP intermediate current use of 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 Overview: ICD-10 [...] URI with cough 08/15/2014 018 ORBIT-[employer] Research Other*[id number] 07/12/2010 07/12/2013 Overview: PROJECT: #[id number], SPONSOR: Owen, PI: Ezio Johnson MD SUMMARY: [...] encounter can be closed. CONTACT: Ziyad Neely, Business Development Coordinator Chronic rhinitis 01/18/2010 08/15/2014 Elevated prostate specific [...] encounter Miscellaneous Notes * Telephone Encounter - Vanessa Bro LPN [...] unexpected or indeterminate finding on Macario Oliver ([id number]) and asks that you review the following [...] Description 01/23/2024 7:40 AM EDT Anticoagulation Pharmacy, [place] [address] [place] [address] [facility] [address] [place] [address] 01/26/2024 11:00 AM EDT Office Visit Cardiology, [facility] [address] [place] [address] Diego George MD [address] [place] [address] 03/19/2024 3:30 PM EST Office Visit Cardiology, [facility] [address] [facility] [place] [address] Tahira Jones PA-C [address] [place] [address] 04/25/2024 12:41 PM EST Hospital Encounter OR [facility], Operating Room, [facility] - 4th Floor [address] [place] [phone] Maria Teresa Quiroga, DO [address] [facility] [place] [address] 04/25/2024 12:41 PM EST - 04/25/2024 1:29 PM EST Surgery OR [facility], Operating Room, [facility] - 4th Floor [address] [place] [phone] Maria Teresa Quiroga, DO [address] [facility] [place] [address] COLONOSCOPY FLEXIBLE PROXIMAL DIAGNOSTIC 09/17/2024 10:15 AM EDT Office Visit Urology, [facility] [address] [facility] [place] [address] Zeus [place] MD [address] [facility] [place] [address] Scheduled Procedures Name Priority Associated Diagnoses Date/Ti me COLONOSCOPY FLEXIBLE PROXIMA L DIAGNOSTIC Symptomatic anemia 04/25/2024 12:41 PM EST ESOPHAGOGASTRODUODENOSCOPY ( EGD), FLEXIBLE, TRANSORAL, DIAGNOSTIC Symptomatic anemia 04/25/2024 12:41 PM EST Health Maintenance Due Date Last Done Comments Adult Wellness Visit 06/01/2003 Albumin/Creatinine Ratio 12/21/2022 022, 10/11/2019, 05/22/2018 COVID-19 Vaccine ( season) 2023 04/17/2022, 02/06/2021, 05/29/2020, Additional history exists CKD PHOS USE SMARTSET 15291 12/30/20230 07/2022, 12/21/2021, 09/12/2018, Additional history exists CKD HGB USE SMARTSET 82285 12/27/202412/27, 12/28/2023, 12/15/2023, Additional history exists Depression [...] this encounter Medical Devices Implanted Type Area Systems Management Consultant Device Identifier Shelf Expiration Date Model / Serial / Lot Baseplate #6 Tritanium - [id number] Implanted:Qty: 1 on 10/22/2019 by Sammy Higgins DO at OR [facility] Left: Knee LISSET : ORTHOPAEDICS 07/23/2024 5536-B-600 / / [id number] Knee Triathlon Bead No Cuong L 6 - [id number] Implanted:Qty: 1 on 10/22/2019 by Sammy Higgins DO at OR [facility] Left: Knee LISSET : ORTHOPAEDICS 07/09/2024 5517-F-601 / / [id number] Patella Symmetric S33mm 9mm - [id number] Implanted:Qty: 1 on 10/22/2019 by Sammy Higgins DO at OR [facility] Left: Knee LISSET : ORTHOPAEDICS 10/29/2023 5556-L-339 / / [id number] Triathlon X3 Tibial Bearing Insert Cs Ramirez 6 Typ Cs Thkns 10mm Implanted:Qty: 1 on 10/22/2019 by Sammy Higgins, at OR [facility] Left: Knee 01/07/2024 5531-G-610 -E / / [id number] documented as of this encounter Advance Directives Documents on File Type Date Recorded Patient Supervisor Dyer Expl anation Advance Directives and Livin g Will 05/25/2017 LIVING WILL Power of Reproductive Endocrinologist 05/25/2017 POWER OF A TTORNEY * Full [...] and were consensually agreed upon. Care Teams Account Strategist Relationship Specialty Start Date End Date Heron Hutchinson MD [address] [place] [address] PCP - General 03/28/1997 documented as of this encounter
--- OUTSIDE RECORDS SUMMARY | 2024-01-26 18:49 | External Medical Summary | Summary of Care ---
Author Name Unknown Organization [facility] Address [address] [facility] [place] [address] Phone [phone] Care Team Providers Care Electrostatic Painter Name Role Phone Heron Hutchinson MD Primary Care Provider [phone] Encounter Details Date Type Department Care Team (Late st Contact Info) Description 01/07/2024 Telephone [facility] [address] [place] [address] Heron Hutchinson MD [address] [place] [address] Allergies No known active allergiesdocumented as of this encounter (statuses as of 01/08/2024) Medications Medication Sig Dispensed Refills Start Date End Date Status Cholecalciferol (VITAMIN D3) 1000 units CAPSIndications:1 tablet monday, monday, monday and monday. monday, and monday 2 tablets Take by mouth. 1 capsule every other day alternating with 2 capsules Active aspirin 81 MG chewable tablet Take 1 Tab by mouth daily. 34 Tab 2 12/07/2018 Active hydroCHLOROthiazid e 25 MG Oral Tablet (Hydrodiuril)Indic ations:Chronic atrial fibrillation (HCC),S/P TAVR (transcatheter aortic valve replacement) TAKE ONE TABLET BY MOUTH 2-3 TIMES A WEEK 36 Tablet 3 07/07/2022 Active Atorvastatin Calcium 20 MG Oral Tablet (Lipitor)Indicatio ns:Dyslipidemia, goal LDL below 100 TAKE ONE TABLET BY MOUTH ONCE DAILY 90 Tablet 3 01/20/2023 Active Warfarin Sodium 5 MG Oral Tablet [...] THE MORNING 90 Tablet 3 01/01/2024 Active documented as of this encounter (statuses as of 01/08/2024) Active Problems Problem Noted Date Diagnosed Date Chronic kidney disease, stage 3a 07/04/2022 Overview: Per CKD protocol Class 3 obesity 06/29/2022 Prediabetes 12/07/2020 Overview: Per Prediabetes protocol Class 2 severe obesity due t o [...] 3 04/01/2019 Atherosclerotic heart diseas e of [place] coronary artery without angina pectoris 04/01/2019 Secondary [...] 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 Overview: ICD-10 update of inactive term documented as of this encounter (statuses as of 01/08/2024) Resolved Problems Problem Noted Date Diagnosed Date Resolved Date Prediabetes 06/01/2020 11/10/2020 Overview: Per Prediabetes protocol Idioventricular rhythm 11/13/201811/15 Hypertensive kidney disease with chronic kidney disease stage III 09/24/2018 02/06/2020 Overview: Per CKD protocol Kidney disease, chronic, sta ge III (GFR 30-59 ml/min) 09/05/2017 10/04/2018 Overview: Per CKD protocol #1 Atrial fibrillation 09/01/2015 03/26/20 18 Viral URI with cough 08/15/2014 018 [employer] Other*[id number] 07/12/2010 07/12/2013 Overview: PROJECT: #[id number], SPONSOR: Owen, PI: Ezio Johnson MD SUMMARY: [...] encounter can be closed. CONTACT: Ziyad Neely, City Superintendent Of Schools Chronic rhinitis 01/18/2010 08/15/2014 Elevated prostate specific antigen (PSA) 01/16/2002 03/26/2018 Benign prostatic hyperplasia 01/09/2002 03/26/2018 Overview: ICD-10 update of inactive term ICD-10 update of inactive term Anticoagulation management encounter 10/12/2001 03/26/2018 Open wound of forearm 09/01/20002017 Atrial fibrillation 09/25/1995 03/26/20 18 Dyslipidemia, goal to be determined 03/01/2013 documented as of this encounter (statuses as of 01/08/2024) Immunizations Name Administration Dates Next Due COVID-19 [...] Telephone Encounter - Taty Marte RPh - 01/08/2024 2:23 PM EDT Noted by [facility]. Thanks! Taty Marte, PharmD, BCACP Clinical Pharmacist Medication Therapy Disease Management 01/08/2024, 2:24 PM * Telephone Encounter - Valentino Stacy OSA - 01/08/2024 12:57 PM EDT returning call. She is aware of message. She stated the pt is scheduled for 04/25/24 in [place]. Aware pt will need to stop coumadin. * Telephone Encounter - Hina Renee LPN - 01/08/2024 11:59 AM EDT Attempted to call patient, no answer lm that I was calling in regards to endoscopy and that I wouldsend a MyG message as well. MyG message sent. * Telephone Encounter - Heron Hutchinson MD - 01/07/2024 9:15 AM EDT Please contact Pt: has he been given date for endoscopy? He will have to stop his Coumadin before procedure. That can be directed by [facility]. If no date yet for endoscopy, need to notify GI scheduling. He likely will need to be done [place] (instead of [facility]). documented in this encounter Plan of Treatment Upcoming Encounters Date Type Department Care Team (Latest Contact Info) Description 01/12/2024 7:40 AM EDT Anticoagulation Pharmacy, [place] [address] [place] [address] [facility] [address] [place] [address] 01/26/2024 11:00 AM EDT Office Visit Cardiology, [facility] [address] [facility] [place] [address] Diego George MD [address] [facility] [place] [address] 03/19/2024 3:30 PM EST Office Visit Cardiology, [facility] [address] [facility] [place] [address] Tahira Jones PA-C [address] [place] [address] 04/25/2024 12:41 PM EST Hospital Encounter [facility], Operating Room, [facility] - 4th Floor [address] [place] [id number] Quiroga, Marten B, DO [address] [place] [address] 04/25/2024 12:41 PM EST - 04/25/2024 1:29 PM EST Surgery [facility], Operating Room, [facility] - 4th Floor [address] [place] [address] Maria Teresa Quiroga, DO [address] [place] [address] COLONOSCOPY FLEXIBLE PROXIMAL DIAGNOSTIC 09/17/2024 10:15 AM EDT Office Visit Urology, [facility] [address] [place] [address] Zeus Davidson MD [address] [place] [address] Scheduled Procedures Name Priority Associated Diagnoses Date/Ti me COLONOSCOPY FLEXIBLE PROXIMA L DIAGNOSTIC Symptomatic anemia 04/25/2024 12:41 PM EST ESOPHAGOGASTRODUODENOSCOPY ( EGD), FLEXIBLE, TRANSORAL, DIAGNOSTIC Symptomatic anemia 04/25/2024 12:41 PM EST Health Maintenance Due Date Last Done Comments Adult Wellness Visit 06/01/2003 Albumin/Creatinine Ratio 12/21/2022 022, 10/11/2019, 05/22/2018 COVID-19 Vaccine ( season) 2023 04/17/2022, 02/06/2021, 05/29/2020, Additional history exists CKD PHOS USE SMARTSET 24184 12/30/202307/2022, 12/21/2021, 09/12/2018, Additional history exists *NEPHROLOGY 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 HTN 01/06/2024 HbA1c 12/14/2024 12/15/2023, 07/2022, 06/29/2022, Additional history exists CKD HGB USE SMARTSET 65773 12/27/202412/27, 12/28/2023, 12/15/2023, Additional history exists Depression [...] this encounter Medical Devices Implanted Type Area Cook Chili Device Identifier Shelf Expiration Date Model / Serial / Lot Baseplate #6 Tritanium - [id number] Implanted:Qty: 1 on 10/22/2019 by Sammy Higgins, DO at OR [facility] Left: Knee LISSET : ORTHOPAEDICS 07/23/2024 5536-B-600 / / [id number] Knee Triathlon Bead No Cuong L 6 - [id number] Implanted:Qty: 1 on 10/22/2019 by Sammy Higgins, at OR [facility] Left: Knee LISSET : ORTHOPAEDICS 07/09/2024 5517-F-601 / / [id number] Patella Symmetric S33mm 9mm - [id number] Implanted:Qty: 1 on 10/22/2019 by Sammy Higgins DO at OR [facility] Left: Knee LISSET : ORTHOPAEDICS 10/29/2023 5556-L-339 / / [id number] Triathlon X3 Tibial Bearing Insert Cs Ramirez 6 Typ Cs Thkns 10mm Implanted:Qty: 1 on 10/22/2019 by Sammy Higgins DO at OR [facility] Left: Knee 01/07/2024 5531-G-610 -E / / [id number] documented as of this encounter Visit Diagnoses Diagnosis Chronic atrial fibrillation (HCC)- Primary Atrial fibrillation S/P TAVR (transcatheter aortic valve replacement) Heart valve replaced by other means Symptomatic anemia documented in this encounter Advance Directives Documents on File Type Date Recorded 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 Care Teams Electrostatic Painter Relationship Specialty Start Date End Date Heron Hutchinson MD [address] [place] [address] PCP - General 03/28/1997 documented as of this encounter
--- OUTSIDE RECORDS SUMMARY | 2024-01-26 18:49 | External Medical Summary | Summary of Care ---
Author Name Unknown Organization [facility] Address [address] [facility] [place] [address] Phone [phone] Care Team Providers Care Counter Dish Carrier Name Role Phone Dot Hutchinson MD Primary Care Provider [phone] Encounter Details Date Type Department Care Team (Late st Contact Info) Description 01/07/2024 Telephone [facility] [address] [place] [address] Dot Hutchinson MD [address] [place] [address] Allergies No known active allergiesdocumented as of this encounter (statuses as of 01/10/2024) Medications Medication Sig Dispensed Refills Start Date End Date Status Cholecalciferol (VITAMIN D3) 1000 units CAPSIndications: 1 tablet monday, monday, monday and monday. monday, and monday 2 tablets Take by mouth. 1 capsule every other day alternating with 2 capsules Active aspirin 81 MG chewable tablet Take 1 Tab by mouth daily. 34 Tab 2 9 Active Warfarin Sodium 5 MG Oral Tablet (Coumadin)Indica tions:Atrial fibrillation (HCC) Take 1 to 2 tablets by mouth DIRECTED by [facility]TICOAGULATION CLINIC 120 Tablet 3 3 Active Metoprolol Succinate ER 25 MG Oral Tablet Extended Release 24 Hour (toPROL XL)Indications:C hronic atrial fibrillation (HCC) TAKE ONE TABLET BY MOUTH ONCE DAILY 90 Tablet 3 3 Active Isosorbide Dinitrate 20 MG Oral Tablet (Isordil)Indicat ions:Chronic diastolic congestive heart failure, NYHA class 3 (HCC) TAKE 1 TABLET BY MOUTH TWICE DAILY 180 Tablet 3 4 Active Vitron-C 65-125 MG Oral Tablet (Iron-Vitamin C 65-125 mg per tab)Indications: Iron deficiency anemia, unspecified iron deficiency anemia type Take 1 Tablet by mouth in the morning. 30 Tablet 1 4 Active Omeprazole 20 MG Oral Capsule Delayed Release (PriLOSEC)Indica tions:Iron deficiency anemia due to chronic blood loss Take 1 Capsule by mouth in the morning. 1 hour before the first meal of the day. 90 Capsule 3 4 Active amLODIPine Besylate 2.5 MG Oral Tablet (Norvasc)Indicat ions:Hypertensiv e heart and kidney disease with chronic diastolic congestive heart failure and stage 3a chronic kidney disease (HCC) TAKE 1 TABLET BY MOUTH ONCE DAILY IN THE MORNING 90 Tablet 3 4 Active hydroCHLOROthiaz fredi 25 MG Oral Tablet (Hydrodiuril)Ind ications:Chronic atrial fibrillation (HCC),S/P TAVR (transcatheter aortic valve replacement) TAKE ONE TABLET BY MOUTH 2-3 TIMES A WEEK 36 Tablet 3 3 024 Discontinued Atorvastatin Calcium 20 MG Oral Tablet (Lipitor)Indicat ions:Dyslipidemi a, goal LDL below 100 TAKE ONE TABLET BY MOUTH ONCE DAILY 90 Tablet 3 3 024 Discontinued documented as of this encounter (statuses as of 01/10/2024) Active Problems Problem Noted Date Diagnosed Date [...] 3 04/01/2019 Atherosclerotic heart diseas e of [place] coronary artery without angina pectoris 04/01/2019 Secondary [...] 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 Overview: ICD-10 update of inactive term documented as of this encounter (statuses as of 01/10/2024) Resolved Problems Problem Noted Date Diagnosed Date Resolved Date Prediabetes 06/01/2020 11/10/2020 Overview: Per Prediabetes protocol Idioventricular rhythm 11/13/201811/15 Hypertensive kidney disease with chronic kidney disease stage III 09/24/2018 02/06/2020 Overview: Per CKD protocol Kidney disease, chronic, sta ge III (GFR 30-59 ml/min) 09/05/2017 10/04/2018 Overview: Per CKD protocol #1 Atrial fibrillation 09/01/2015 03/26/20 18 Viral URI with cough 08/15/2014 018 [employer] Other*[id number] 07/12/2010 07/12/2013 Overview: PROJECT: #[id number], SPONSOR: Owen, PI: Ezio Johnson MD SUMMARY: [...] encounter can be closed. CONTACT: Ziyad Neely, Machine Or Machinery Mechanic Chronic rhinitis 01/18/2010 08/15/2014 Elevated prostate specific antigen (PSA) 01/16/2002 03/26/2018 Benign prostatic hyperplasia 01/09/2002 03/26/2018 Overview: ICD-10 update of inactive term ICD-10 update of inactive term Anticoagulation management encounter 10/12/2001 03/26/2018 Open wound of forearm 09/01/20002017 Atrial fibrillation 09/25/1995 03/26/20 18 Dyslipidemia, goal to be determined 03/01/2013 documented as of this encounter (statuses as of 01/10/2024) Immunizations Name Administration Dates Next Due COVID-19 [...] encounter Miscellaneous Notes * Telephone Encounter - Delores Bueno LPN - 01/10/2024 3:18 PM EDT Spoke with pt's , ilir, she was made aware of message below and stated understanding. She wasworried about her and the procedure he is to have. * Addendum Note - Dot Hutchinson MD - 01/09/2024 5:36 PM EDTAddended by: DOT HUTCHINSON on: 01/09/2024 05:36 PM Modules accepted: Orders * Telephone Encounter - Dot Hutchinson MD - 01/09/2024 5:34 PM EDT Given that endoscopy not until Mar, I would like to have repeat CBC sometime in next 2-4 weeks. Ordrd * Telephone Encounter - Taty Marte RPh - 01/08/2024 2:23 PM EDT Noted by [facility]. Thanks! Taty Marte, PharmD, BCACP Clinical Pharmacist Medication Therapy Disease Management 01/08/2024, 2:24 PM * Telephone Encounter - Valentino Stacy OSA - 01/08/2024 12:57 PM EDT returning call. She is aware of message. She stated the pt is scheduled for 04/25/24 in [place]. Aware pt will need to stop coumadin. * Telephone Encounter - Hina Renee LPN - 01/08/2024 11:59 AM EDT Attempted to call patient, no answer lm that I was calling in regards to endoscopy and that I wouldsend a MyG message as well. MyG message sent. * Telephone Encounter - Dot Hutchinson MD - 01/07/2024 9:15 AM EDT Please contact Pt: has he been given date for endoscopy? He will have to stop his Coumadin before procedure. That can be directed by [facility]. If no date yet for endoscopy, need to notify GI scheduling. He likely will need to be done [place] (instead of [facility]). documented in this encounter Plan of Treatment Upcoming Encounters Date Type Department Care Team (Latest Contact Info) Description 01/12/2024 7:40 AM EDT [facility], [place] [address] [facility] [address] [place] [address] [facility], [place] [address] 01/26/2024 11:00 AM EDT Office Visit Cardiology, [facility] [address] [place] [address] Diego George MD [address] [place] [address] 03/19/2024 3:30 PM EST Office Visit Cardiology, [facility] [address] [place] [address] Tahira Jones [facility]-C [address] [facility] [place] [address] 04/25/2024 12:41 PM EST Hospital Encounter OR [facility], Operating Room, [facility] - 4th Floor [address] [place] [place] [address] Maria Teresa Quiroga, DO [address] [place] [address] 04/25/2024 12:41 PM EST - 04/25/2024 1:29 PM EST Surgery OR [facility], Operating Room, [facility] - 4th Floor [address] [place] [address] Maria Teresa Quiroga, DO [address] [place] [address] COLONOSCOPY FLEXIBLE PROXIMAL DIAGNOSTIC 09/17/2024 10:15 AM EDT Office Visit Urology, [facility] [address] [facility] [place] [address] Zeus Davidson MD [address] [place] [address] Scheduled Orders Name Type Priority Associated Diagnoses Orde r Schedule CBC Lab Routine Anemia, unspecified type Expected: 01/09/2024 (Approximate), Expires: 01/08/2025 Scheduled Procedures Name Priority Associated Diagnoses Date/Ti me COLONOSCOPY FLEXIBLE PROXIMA L DIAGNOSTIC Symptomatic anemia 04/25/2024 12:41 PM EST ESOPHAGOGASTRODUODENOSCOPY ( EGD), FLEXIBLE, TRANSORAL, DIAGNOSTIC Symptomatic anemia 04/25/2024 12:41 PM EST Health Maintenance Due Date Last Done Comments Adult Wellness Visit 06/01/2003 Albumin/Creatinine Ratio 12/21/2022 022, 10/11/2019, 05/22/2018 COVID-19 Vaccine ( season) 2023 04/17/2022, 02/06/2021, 05/29/2020, Additional history exists CKD PHOS USE SMARTSET 86699 12/30/202307/2022, 12/21/2021, 09/12/2018, Additional history exists *NEPHROLOGY 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 HTN 01/06/2024 HbA1c 12/14/2024 12/15/2023, 07/2022, 06/29/2022, Additional history exists CKD HGB USE SMARTSET 90322 12/27/202412/27, 12/28/2023, 12/15/2023, Additional history exists Depression [...] this encounter Medical Devices Implanted Type Area Shirt Sewer Device Identifier Shelf Expiration Date Model / Serial / Lot Baseplate #6 Tritanium - [id number] Implanted:Qty: 1 on 10/22/2019 by Sammy Higgins DO at OR [facility] Left: Knee LISSET : ORTHOPAEDICS 07/23/2024 5536-B-600 / / [id number] Knee Triathlon Bead No Cuong L 6 - [id number] Implanted:Qty: 1 on 10/22/2019 by Sammy Higgins DO at OR [facility] Left: Knee LISSET : ORTHOPAEDICS 07/09/2024 5517-F-601 / / [id number] Patella Symmetric S33mm 9mm - [id number] Implanted:Qty: 1 on 10/22/2019 by Sammy Higgins DO at OR [facility] Left: Knee LISSET : ORTHOPAEDICS 10/29/2023 5556-L-339 / / [id number] Triathlon X3 Tibial Bearing Insert Cs Ramirez 6 Typ Cs Thkns 10mm Implanted:Qty: 1 on 10/22/2019 by Sammy Higgins DO at OR [facility] Left: Knee 01/07/2024 5531-G-610 -E / / [id number] documented as of this encounter Visit Diagnoses Diagnosis Chronic atrial fibrillation (HCC)- Primary Atrial fibrillation S/P TAVR (transcatheter aortic valve replacement) Heart valve replaced by other means Anemia, unspecified type Symptomatic anemia documented in this encounter Advance Directives Documents on File Type Date Recorded 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 Care Teams Counter Dish Carrier Relationship Specialty Start Date End Date Dot Hutchinson MD [address] [place] [address] PCP - General 03/28/1997 documented as of this encounter
--- OUTSIDE RECORDS SUMMARY | 2024-01-26 18:49 | External Medical Summary | Summary of Care ---
Author Name Unknown Organization [facility] Address [address] [place] [address] Phone [phone] Care Team Providers Care Material Specialist Name Role Phone Heron Hutchinson MD Primary Care Provider [phone] Reason for Visit * Reason Comments NEW PATIENT Referred by Dr. Monica crowell for iron deficient anemia. Pt reports that he does get tired easily. Encounter Details Date Type Department Care Team (Late st Contact Info) Description 01/04/2024 2:30 PM EDT Office Visit Gastroenterology, [facility] [address] [facility] [place] [id number] Lily Rollins PA-C [facility] [place] [id number] Symptomatic anemia* Allergies No known active allergiesdocumented as of this encounter (statuses as of 01/05/2024) Medications Medication Sig Dispensed Refills Start Date [...] as of this encounter (statuses as of 01/05/2024) Active Problems Problem Noted Date Diagnosed Date [...] 3 04/01/2019 Atherosclerotic heart diseas e of [place] coronary artery without angina pectoris 04/01/2019 Secondary [...] BIPAP Plus set at 12 cwp AHP residential current use of 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 Overview: ICD-10 update of inactive term documented as of this encounter (statuses as of 01/05/2024) Resolved Problems Problem Noted Date Diagnosed Date Resolved Date Prediabetes 06/01/2020 11/10/2020 Overview: Per Prediabetes protocol Idioventricular rhythm 11/13/201811/15 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 CONTACT: Ziyad Neely, Exhibition Designer Chronic rhinitis 01/18/2010 08/15/2014 Elevated prostate specific antigen (PSA) 01/16/2002 03/26/2018 Benign prostatic hyperplasia 01/09/2002 03/26/2018 Overview: ICD-10 update of inactive term ICD-10 update of inactive term Anticoagulation management encounter 10/12/2001 03/26/2018 Open wound of forearm 09/01/20002017 Atrial fibrillation 09/25/1995 03/26/20 18 Dyslipidemia, goal to be determined 03/01/2013 documented as of this encounter (statuses as of 01/05/2024) Immunizations Name Administration Dates Next Due COVID-19 [...] Sign Reading Time Taken Comments Blood Pressure 167/83 01/04/2024 2:22 PM EDT Pulse 86 01/04/2024 2:22 PM EDT Temperature 36.6 C (97.9 F) 01/04/2024 2:22 PM ED T Respiratory Rate - - Oxygen Saturation - - Inhaled Oxygen Concentration - - Weight 88.6 kg (195 lb 6.4 oz) 01/04/2024 2:22 P M EDT Height 165.1 cm (5' 5") 01/04/2024 2:22 PM EDT Body Mass Index 32.52 01/04/2024 2:22 PM EDT documented in this encounter Functional [...] No 10/22/2019 documented as of this encounter Patient Instructions * Patient Instructions* Lily Rollins PA-C - 01/04/2024 2:44 PM EDT - Continue omeprazole 20 mg daily - Schedule EGD/colonoscopy documented in this encounter Progress Notes * Lily Rollins PA-C - 01/04/2024 2:33 PM EDT DATE OF SERVICE: 01/04/2024 REFERRING PHYSICIAN: Heron Hutchinson MD Nursing Notes: NatacahAndreaaROSE MARY 01/04/24 1423 Signed Chief Complaint Patient presents with NEW PATIENT Referred by Dr. Hutchinson for iron deficient anemia. Pt reports that he does get tired easily. CC: Anemia New pt office visit 01/04/24: This is a 88 year old y/o male with PMHx as below, referred for anemia. 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 Pt states he notices dark stools off and on. Was found to have symptomatic anemia; noticed fatigue, SOB. Saw PCP; found to have anemia (HGB12->9 in the last year). Also had supratherapeutic INR 3.8. Was put on oral iron, PPI. He has had some weight loss; about 20 lbs in the last 2 years. Admits he has been trying to lose weight by cutting back on food intake. He has had two colonoscopies, first in 2002 which showed some diverticula and then more recently in05/2007 which was unremarkable. No heartburn, dysphagia, nausea, vomiting, hematemesis, hematochezia, CP, fever, chills, leg swelling. I reviewed recent PCP, Cardiology, Urology notes, as well as labs including CBC, BMP, LFTs, INR. REVIEW OF SYSTEMS:.A complete review of systems is as stated above, otherwise, all others negative. 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 No polyps. repeat [id number] CORONARY ANGIOGRAPHY W/LEFT HEART CATH N/A 09/12/2018 CORONARY ANGIOGRAPHY W/LEFT HEART CATH performed by Naseem Vines MD at [facility] INFORMATION 06/26/[address]DANELLA [place] INSERT/REPLACE PACEMAKER,ATRIAL/VENTRICULAR Left 11/14/2018 NEW DDD PACEMAKER IMPLANT performed by Brianna Phillip MD at [facility] NEEDLE/PUNCH BIOPSY OF PROSTATE 03/10/03 Prostate,Needle/Punch Biopsy REMOVAL OF TONSILS, UNDER AGE 12 Tonsils Removal,<12 Y/O REPLACE AORTIC VALVE, PERCUTANEOUS FEMORAL Bilateral 11/06/2018 REPLACE AORTIC VALVE, PERCUTANEOUS FEMORAL performed by Naseem Vines MD at [facility] REPLACE AORTIC VALVE, PERCUTANEOUS FEMORAL Bilateral 11/06/2018 REPLACE AORTIC VALVE, PERCUTANEOUS FEMORAL performed by Sammy Carrasco MD at [facility] SIGMOIDOSCOPY, DIAGNOSTIC 1996 @SOCHXR@ Review of patient's allergies indicates: No Known Allergies Current Outpatient Medications Medication Sig Dispense Refill Cholecalciferol (VITAMIN D3) 1000 units CAPS Take by mouth. 1 capsule every other day alternating with 2 capsules aspirin 81 MG chewable tablet Take 1 Tab by mouth daily. 34 Tab 2 hydroCHLOROthiazide 25 MG Oral Tablet (Hydrodiuril) TAKE ONE TABLET BY MOUTH 2-3 TIMES A WEEK 36 Tablet 3 Atorvastatin Calcium 20 MG Oral Tablet (Lipitor) TAKE ONE TABLET BY MOUTH ONCE DAILY 90 Tablet 3 Warfarin Sodium 5 MG Oral Tablet (Coumadin) Take 1 to 2 tablets by mouth DIRECTED by ANTICOAGULATION CLINIC 120 Tablet 3 Metoprolol Succinate ER 25 MG Oral Tablet Extended Release 24 Hour (toPROL XL) TAKE ONE TABLET BY MOUTH ONCE DAILY 90 Tablet 3 Isosorbide Dinitrate 20 MG Oral Tablet (Isordil) TAKE 1 TABLET BY MOUTH TWICE DAILY 180 Tablet 3 Vitron-C 65-125 MG Oral Tablet (Iron-Vitamin C 65-125 mg per tab) Take 1 Tablet by mouth in the morning. 30 Tablet 1 Omeprazole 20 MG Oral Capsule Delayed Release (PriLOSEC) Take 1 Capsule by mouth in the morning. 1 hour before the first meal of the day. 90 Capsule 3 amLODIPine Besylate 2.5 MG Oral Tablet (Norvasc) TAKE 1 TABLET BY MOUTH ONCE DAILY IN THE MORNING 90 Tablet 3 No current facility-administered medications for this visit. EXAM: BP 167/83 | Pulse 86 | Temp 36.6 C (97.9 F) | Ht 1.651 m (5' 5") | Wt 88.6 kg (195 lb 6.4 oz) |BMI 32.52 kg/m | BSA 2.02 m GENERAL: Well developed and well nourished in no acute distress. SKIN: Warm, dry, intact, no rash, jaundice, or spider angiomata HEENT: Normocephalic, sclera clear NECK: Supple, full ROM HEART: Regular rate & rhythm, no murmurs and no gallops. LUNGS: Clear to auscultation bilaterally, no respiratory distress ABDOMEN: Soft, nontender, normal bowel sounds, no masses or hepatosplenomegaly. EXTREMITIES: No palmar erythema, cyanosis, or edema. NEURO: A&O x 3. Sensory/Motor grossly normal. ASSESSMENT AND PLAN: 88-year-old male with multiple comorbidities as above, recently found to have symptomatic anemia and supratherapeutic INR. (D64.9) Symptomatic anemia (primary encounter diagnosis) Plan: EGD, FLEXIBLE, DIAGNOSTIC, COLONOSCOPY, DIAGNOSTIC (RECTUM) - EGD next available, along with colonoscopy - to evaluate for any possible occult GI source of hisanemia, such as PUD, AVM, gastritis, malignancy, etc. - Daily PPI -Follow-up closely with Coumadin clinic to monitor his INR and PCP to monitor his hemoglobin - Continue iron therapy -Return to GI p.r.n. pending on results of above. - ED for emergencies - Please call with questions or concerns Lily Rollins PA-C Division of Gastroenterology [facility] This chart was completed in part utilizing [employer] Speech Voice Recognition Software. Grammatical errors, random word insertions, prounoun errors, and incomplete sentences are an occasional consequence of this system due to software limitations, ambient noise, and hardware issues. Any formal questions or concerns about the content, text, or information contained within the body of this dictation should be directly addressed to the provider for clarification. documented in this encounter Nursing Notes * Kayla Manzano LPN - 01/04/2024 2:17 PM EDT Chief Complaint Patient presents with NEW PATIENT Referred by Dr. Hutchinson for iron deficient anemia. Pt reports that he does get tired easily. documented in this encounter Plan of Treatment Upcoming Encounters Date Type Department Care Team (Late st Contact Info) Description 01/12/2024 7:40 AM EDT Anticoagulation Pharmacy, [facility] [address] [place] [address] [facility] [address] [place] [address] 01/26/2024 11:00 AM EDT Office Visit Cardiology, [facility] [address] [place] [address] Diego George MD [address] [place] [address] 03/19/2024 3:30 PM EST Office Visit Cardiology, [facility] [address] [place] [address] Tahira Jones PA-C [address] [place], [place] [address] [address] 09/17/2024 10:15 AM EDT Office Visit Urology, [facility] [address] [facility] [place] [address] Zeus Davidson MD [address] [place] [address] Scheduled Orders Name Type Priority Associated Diagnoses Orde r Schedule EGD, FLEXIBLE, DIAGNOSTIC Procedures Routine Symptomatic anemia Ordered: 01/04/2024 COLONOSCOPY, DIAGNOSTIC (RECTUM) Procedures Routine Symptomatic anemia Ordered: 01/04/2024 Health Maintenance Due Date Last Done Comments Adult Wellness Visit 06/01/2003 Albumin/Creatinine Ratio 12/21/2022 022, 10/11/2019, 05/22/2018 COVID-19 Vaccine ( season) 2023 04/17/2022, 02/06/2021, 05/29/2020, Additional history exists CKD PHOS USE SMARTSET 31408 12/30/202307/2022, 12/21/2021, 09/12/2018, Additional history exists HbA1c 12/14/2024 12/15/2023, 07/2022, 06/29/2022, Additional history exists CKD HGB USE SMARTSET 99710 12/27/202412/27, 12/28/2023, 12/15/2023, Additional history exists Depression [...] this encounter Medical Devices Implanted Type Area Head Up Operator Helper Device Identifier Shelf Expiration Date Model / Serial / Lot Baseplate #6 Tritanium - [id number] Implanted:Qty: 1 on 10/22/2019 by Sammy Higgins, at OR [facility] Left: Knee LISSET : ORTHOPAEDICS 07/23/2024 5536-B-600 / / [id number] Knee Triathlon Bead No Cuong L 6 - [id number] Implanted:Qty: 1 on 10/22/2019 by Sammy Higgins, DO at OR [facility] Left: Knee LISSET : ORTHOPAEDICS 07/09/2024 5517-F-601 / / [id number] Patella Symmetric S33mm 9mm - [id number] Implanted:Qty: 1 on 10/22/2019 by Sammy Higgins DO at OR [facility] Left: Knee LISSET : ORTHOPAEDICS 10/29/2023 5556-L-339 / / [id number] Triathlon X3 Tibial Bearing Insert Cs Ramirez 6 Typ Cs Thkns 10mm Implanted:Qty: 1 on 10/22/2019 by Sammy Higgins DO at OR [facility] Left: Knee 01/07/2024 5531-G-610 -E / / [id number] documented as of this encounter Visit Diagnoses Diagnosis Symptomatic anemia- Primary documented in this encounter Advance Directives Documents on File Type Date Recorded 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 Care Teams Material Specialist Relationship Specialty Start Date End Date Heron Hutchinson MD [address] [place] [facility] [place] [address] PCP - General 03/28/1997 documented as of this encounter
--- OUTSIDE RECORDS SUMMARY | 2024-01-26 18:49 | External Medical Summary | Summary of Care ---
Author Name Unknown Organization [facility] Address [address] [facility] [place] [address] Phone [phone] Care Team Providers Care Air Liaison And Special Staff Name Role Phone Dot Hutchinson MD Primary Care Provider Encounter Details Date Type Department Care Team (Late st Contact Info) Description 01/07/2024 Telephone [facility] [address] [place] [address] Dot Hutchinson MD [address] [place] [address] Allergies No known active allergiesdocumented as of this encounter (statuses as of 01/09/2024) Medications Medication Sig Dispensed Refills Start Date End Date Status Cholecalciferol (VITAMIN D3) 1000 units CAPSIndications: 1 tablet monday, monday, monday and monday. monday, and monday 2 tablets Take by mouth. 1 capsule every other day alternating with 2 capsules Active aspirin 81 MG chewable tablet Take 1 Tab by mouth daily. 34 Tab 2 9 Active Atorvastatin Calcium 20 MG Oral Tablet (Lipitor)Indicat ions:Dyslipidemi a, goal LDL below 100 TAKE ONE TABLET BY MOUTH ONCE DAILY 90 Tablet 3 3 Active Warfarin Sodium 5 MG Oral Tablet [...] WEEK 36 Tablet 3 3 024 Discontinued documented as of this encounter (statuses as of 01/09/2024) Active Problems Problem Noted Date Diagnosed Date [...] 3 04/01/2019 Atherosclerotic heart diseas e of [place] coronary artery without angina pectoris 04/01/2019 Secondary [...] BIPAP Plus set at 12 cwp AHP snf current use of 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 Overview: ICD-10 update of inactive term documented as of this encounter (statuses as of 01/09/2024) Resolved Problems Problem Noted Date Diagnosed Date Resolved Date Prediabetes 06/01/2020 11/10/2020 Overview: Per Prediabetes protocol Idioventricular rhythm 11/13/201811/15 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 CONTACT: Ziyad Neely, Back Roller Chronic rhinitis 01/18/2010 08/15/2014 Elevated prostate specific antigen (PSA) 01/16/2002 03/26/2018 Benign prostatic hyperplasia 01/09/2002 03/26/2018 Overview: ICD-10 update of inactive term ICD-10 update of inactive term Anticoagulation management encounter 10/12/2001 03/26/2018 Open wound of forearm 09/01/20002017 Atrial fibrillation 09/25/1995 03/26/20 18 Dyslipidemia, goal to be determined 03/01/2013 documented as of this encounter (statuses as of 01/09/2024) Immunizations Name Administration Dates Next Due COVID-19 [...] encounter Miscellaneous Notes * Addendum Note - Dot Hutchinson MD - 01/09/2024 5:36 PM EDTAddended by: DOT HUTCHINSON on: 01/09/2024 05:36 PM Modules accepted: Orders * Telephone Encounter - Dot Hutchinson MD - 01/09/2024 5:34 PM EDT Given that endoscopy not until Mar, I would like to have repeat CBC sometime in next 2-4 weeks. Ordrd * Telephone Encounter - Taty Marte [facility] - 01/08/2024 2:23 PM EDT Noted by [facility]. Thanks! Taty Marte, PharmD, BCACP Clinical Pharmacist Medication Therapy Disease Management 01/08/2024, 2:24 PM * Telephone Encounter - Valentino Stacy OSA - 01/08/2024 12:57 PM EDT returning call. She is aware of message. She stated the pt is scheduled for 04/25/24 in [place]. Aware pt will need to stop coumadin. [...] before procedure. That can be directed by [facility]. If no date yet for endoscopy, need to notify GI scheduling. He likely will need to be done [place] (instead of [facility]). documented in this encounter Plan of Treatment Upcoming Encounters Date Type Department Care Team (Latest Contact Info) Description 01/12/2024 7:40 AM EDT Anticoagulation Pharmacy, [address] [address] [facility] [address] [place] [address] 01/26/2024 11:00 AM EDT Office Visit Cardiology, [facility] [address] [place] [address] Diego George MD [address] [place] [address] 03/19/2024 3:30 PM EST Office Visit Cardiology, [facility] [address] [facility] [place] [address] Tahira Jones PA-C [address] [facility] [place] [address] 04/25/2024 12:41 PM EST Hospital Encounter OR [facility], Operating Room, [facility] - 4th Floor [address] [place] [address] Maria Teresa Quiroga, DO [address] [facility] [place] [address] 04/25/2024 12:41 PM EST - 04/25/2024 1:29 PM EST Surgery OR [facility], Operating Room, [facility] - 4th Floor [address] [place] [address] Maria Teresa Quiroga, DO [address] [place] [address] COLONOSCOPY FLEXIBLE PROXIMAL DIAGNOSTIC 09/17/2024 10:15 AM EDT Office Visit Urology, [facility] [address] [facility] [place] [address] Zeus Davidson MD [address] [place] [address] Scheduled Orders Name Type Priority Associated Diagnoses [...] Additional history exists CKD PHOS USE SMARTSET 24830 12/30/202307/2022, 12/21/2021, 09/12/2018, Additional history exists *NEPHROLOGY 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 HTN 01/06/2024 HbA1c 12/14/2024 12/15/2023, 07/2022, 06/29/2022, Additional history exists CKD HGB USE SMARTSET 91509 12/27/202412/27, 12/28/2023, 12/15/2023, Additional history exists Depression [...] this encounter Medical Devices Implanted Type Area Team Automobile Assembler Device Identifier Shelf Expiration Date Model / Serial / Lot Baseplate #6 Tritanium - [id number] Implanted:Qty: 1 on 10/22/2019 by Sammy Higgins DO at OR [facility] Left: Knee LISSET : ORTHOPAEDICS 07/23/2024 5536-B-600 / / [id number] Knee Triathlon Bead No Cuong L 6 - [id number] Implanted:Qty: 1 on 10/22/2019 by Sammy Higgins DO at OR [facility] Left: Knee LISSET : ORTHOPAEDICS 07/09/2024 5517-F-601 / / [id number] Patella Symmetric S33mm 9mm - [id number] Implanted:Qty: 1 on 10/22/2019 by Sammy Higgins DO at OR [facility] Left: Knee LISSET : ORTHOPAEDICS 10/29/2023 5556-L-339 / / [id number] Triathlon X3 Tibial Bearing Insert Cs Ramirez 6 Typ Cs Thkns 10mm Implanted:Qty: 1 on 10/22/2019 by Sammy Higgins DO at OR [facility] Left: Knee 01/07/2024 5531-G-610 -E / / [id number] documented as of this encounter Visit Diagnoses Diagnosis Chronic atrial fibrillation (HCC)- Primary Atrial fibrillation S/P TAVR (transcatheter aortic valve replacement) Heart valve replaced by other means Anemia, unspecified type Symptomatic anemia documented in this encounter Advance Directives Documents on File Type Date Recorded 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 Care Teams Air Liaison And Special Staff Relationship Specialty Start Date End Date Dot Hutchinson MD [address] [place] [address] PCP - General 03/28/1997 documented as of this encounter
--- OUTSIDE RECORDS SUMMARY | 2024-01-26 18:49 | External Medical Summary | Summary of Care ---
Author Name Unknown Organization [facility] Address [address] [facility] [place] [address] Phone [phone] Care Team Providers Care Digital Marketing Officer Name Role Phone Heron Hutchinson MD Primary Care Provider [phone] Reason for Visit * Reason Onset Date Comments Appointment 12/28/2023 Encounter Details Date Type Department Care Team (Late st Contact Info) Description 12/28/2023 Telephone [facility] [address] [place] [address] Heron Hutchinson MD [address] [place] [address] Appointment Allergies No known active allergiesdocumented as of [...] mouth daily. 34 Tab 2 9 Active hydroCHLOROthiaz fredi 25 MG Oral Tablet (Hydrodiuril)Ind ications:Chronic atrial fibrillation (HCC),S/P TAVR (transcatheter aortic valve replacement) TAKE ONE TABLET BY MOUTH 2-3 TIMES A WEEK 36 Tablet 3 3 Active Atorvastatin Calcium 20 MG Oral Tablet [...] and stage 3a chronic kidney disease (HCC) Take 1 Tablet by mouth in the morning. 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 CONTACT: Ziyad Neely, Solvent Recoverer Chronic rhinitis 01/18/2010 08/15/2014 Elevated prostate specific [...] encounter Miscellaneous Notes * Telephone Encounter - Shabnam Haile OSA - 01/08/2024 10:14 AM EDT Pt's called back in and he is set up on 04/25/24 and on move up list. * Telephone Encounter - Tosha Toth OSA - 01/01/2024 4:06 PM EDT Lmm * Telephone Encounter - Jessica Krueger OSA - 01/01/2024 11:49 AM EDT This pt will most likely need to be done in an OR setting. Has a long hx of cardiac problems. Pt is also over the age of 82 and will most likely need evaluated. Please advise CEE Mcneal 01/01/2024 11:50 AM * Telephone Encounter - Raulito Arechiga OSA - 12/28/2023 12:44 PM EDT Per Provider- Patient needs Upper and lower endoscopy within 10 days. Please assist with schedulingASAP documented in this encounter Plan of Treatment Upcoming Encounters Date Type Department Care Team (Latest Contact Info) Description 01/12/2024 7:40 AM EDT Anticoagulation Pharmacy, [place] [address] [place] [address] [facility] [address] [place] [address] 01/26/2024 11:00 AM EDT Office Visit Cardiology, [facility] [address] [place] [address] Diego George MD [address] [place] [address] 03/19/2024 3:30 PM EST Office Visit Cardiology, [facility] [address] [place] [address] Tahira Jones PA-C [address] [place] [address] 04/25/2024 12:41 PM EST Hospital Encounter OR [facility], Operating Room, [facility] - 4th Floor [address] [place] [phone] Maria Teresa Quiroga, DO [address] [place] [address] 04/25/2024 12:41 PM EST - 04/25/2024 1:29 PM EST Surgery [facility], Operating Room, [facility] - 4th Floor [address] [place] [address] Maria Teresa Quiroga, DO [address] [place] [address] COLONOSCOPY FLEXIBLE PROXIMAL DIAGNOSTIC 09/17/2024 10:15 AM EDT Office Visit Urology, [facility] [address] [place] [address] Zeus Davidson MD [address] [place] [address] Scheduled Procedures Name Priority Associated Diagnoses Date/Ti me COLONOSCOPY FLEXIBLE PROXIMA L DIAGNOSTIC Symptomatic anemia 04/25/2024 12:41 PM EST ESOPHAGOGASTRODUODENOSCOPY ( EGD), FLEXIBLE, TRANSORAL, DIAGNOSTIC Symptomatic anemia 04/25/2024 12:41 PM EST Health Maintenance Due Date Last Done Comments Adult Wellness Visit 06/01/2003 Albumin/Creatinine Ratio 12/21/2022 022, 10/11/2019, 05/22/2018 COVID-19 Vaccine ( season) 2023 04/17/2022, 02/06/2021, 05/29/2020, Additional history exists CKD PHOS USE SMARTSET 92803 12/30/202307/2022, 12/21/2021, 09/12/2018, Additional history exists *NEPHROLOGY 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 HTN 01/06/2024 HbA1c 12/14/2024 12/15/2023, 07/2022, 06/29/2022, Additional history exists CKD HGB USE SMARTSET 44458 12/27/202412/27, 12/28/2023, 12/15/2023, Additional history exists Depression [...] this encounter Medical Devices Implanted Type Area Court Stenographer Device Identifier Shelf Expiration Date Model / Serial / Lot Baseplate #6 Tritanium - [id number] Implanted:Qty: 1 on 10/22/2019 by Sammy Higgins DO at OR [facility] Left: Knee LISSET : ORTHOPAEDICS 07/23/2024 5536-B-600 / / [id number] Knee Triathlon Bead No Cuong L 6 - [id number] Implanted:Qty: 1 on 10/22/2019 by Sammy Higgins DO at OR [facility] Left: Knee LISSET : ORTHOPAEDICS 07/09/2024 5517-F-601 / / [id number] Patella Symmetric S33mm 9mm - [id number] Implanted:Qty: 1 on 10/22/2019 by Sammy Higgins DO at OR [facility] Left: Knee LISSET : ORTHOPAEDICS 10/29/2023 5556-L-339 / / [id number] Triathlon X3 Tibial Bearing Insert Cs Ramirez 6 Typ Cs Thkns 10mm Implanted:Qty: 1 on 10/22/2019 by Sammy Higgins DO at OR [facility] Left: Knee 01/07/2024 5531-G-610 -E / / [id number] documented as of this encounter Advance Directives Documents on File Type Date Recorded 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 Care Teams Digital Marketing Officer Relationship Specialty Start Date End Date Heron Hutchinson MD [address] [facility] [place] [address] PCP - General 03/28/1997 documented as of this encounter
--- OUTSIDE RECORDS SUMMARY | 2024-01-26 18:49 | External Medical Summary | Summary of Care ---
Author Name Unknown Organization [facility] Address [address] [facility] [place] [address] Phone [phone] Care Team Providers Care Rolling Mill Plugger Name Role Phone Heron Hutchinson MD Primary Care Provider [phone] Reason for Visit * Reason Comments eRx-Medication Refill Encounter Details Date Type Department Care Team (Late st Contact Info) Description 01/08/2024 Refill Cardiology, [facility] [address] [place] [address] Diego George MD [address] [facility] [place] [address] Chronic atrial fibrillation (HCC); S/P TAVR (transcatheter aortic valve replacement) Allergies [...] TIMES a WEEK 36 Tablet 4 Active hydroCHLOROthiaz fredi 25 MG Oral [...] 3 04/01/2019 Atherosclerotic heart diseas e of [place] coronary artery without angina pectoris 04/01/2019 Secondary [...] URI with cough 08/15/2014 018 ORBIT-[employer] Other*[id number] 07/12/2010 07/12/2013 Overview: PROJECT: #[id number], SPONSOR: Owen, PI: Ezio Johnson MD SUMMARY: [...] encounter can be closed. CONTACT: Ziyad Neely, Supervising Broker Chronic rhinitis 01/18/2010 08/15/2014 Elevated prostate specific [...] encounter Miscellaneous Notes * Telephone Encounter - Millicent Javier [facility] - 01/09/2024 2:57 PM EDTSigned Prescriptions: Disp Refills hydroCHLOROthiazide 25 MG Oral Tablet (Hyd*36 Tab*0 Sig: TAKE ONE TABLET BY MOUTH 2-3 TIMES a WEEKAuthorizing Provider: HANNAH CLARK User: MILLICENT JAVIER * Telephone Encounter - Millicent Javier RPh - 01/09/2024 2:56 PM EDT Pt needs updated Mg, order placed 90 day supply with 0 refills Millicent Javier Pharm D Clinical [facility] Pharmacist Cardiology 01/09/2024,2:56 PM documented in this encounter Plan of Treatment Upcoming Encounters Date Type Department Care Team (Latest Contact Info) Description 01/12/2024 7:40 AM EDT Anticoagulation Pharmacy, [place] [address] [place] [address] [facility] [address] [facility] [address] 01/26/2024 11:00 AM EDT Office Visit Cardiology, [facility] [address] [place] [address] Diego George MD [address] [place] [address] 03/19/2024 3:30 PM EST Office Visit Cardiology, [facility] [address] [place] [address] Tahira Jones PA-C [address] [place] [address] 04/25/2024 12:41 PM EST Hospital Encounter OR [facility], Operating Room, [facility] - 4th Floor [address] [place] [phone] Maria Teresa Quiroga DO [address] [place] [address] 04/25/2024 12:41 PM EST - 04/25/2024 1:29 PM EST Surgery [facility], Operating Room, [facility] - 4th Floor [address] [place] [address] Maria Teresa Quiroga, DO [address] [place] [address] COLONOSCOPY FLEXIBLE PROXIMAL DIAGNOSTIC 09/17/2024 10:15 AM EDT Office Visit Urology, [facility] [address] [place] [address] Zeus Davidson MD [address] [place] [address] Scheduled Orders Name Type Priority Associated Diagnoses Orde r Schedule MAGNESIUM Lab Routine Chronic atrial fibrillation (HCC) Expected: 01/09/2024, Expires: 01/08/2025 Scheduled Procedures Name Priority Associated [...] Additional history exists CKD PHOS USE SMARTSET 33349 12/30/202307/2022, 12/21/2021, 09/12/2018, Additional history exists *NEPHROLOGY 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 HTN 01/06/2024 HbA1c 12/14/2024 12/15/2023, 07/2022, 06/29/2022, Additional history exists CKD HGB USE SMARTSET 70996 12/27/202412/27, 12/28/2023, 12/15/2023, Additional history exists Depression [...] this encounter Medical Devices Implanted Type Area Registered Nurse Supervisor Device Identifier Shelf Expiration Date Model / Serial / Lot Baseplate #6 Tritanium - [id number] Implanted:Qty: 1 on 10/22/2019 by Sammy Higgins DO at OR [facility] Left: Knee LISSET : ORTHOPAEDICS 07/23/2024 5536-B-600 / / [id number] Knee Triathlon Bead No Cuong L 6 - [id number] Implanted:Qty: 1 on 10/22/2019 by Sammy Higgins DO at OR [facility] Left: Knee LISSET : ORTHOPAEDICS 07/09/2024 5517-F-601 / / [id number] Patella Symmetric S33mm 9mm - [id number] Implanted:Qty: 1 on 10/22/2019 by Sammy Higgins DO at OR [facility] Left: Knee LISSET : ORTHOPAEDICS 10/29/2023 5556-L-339 / / [id number] Triathlon X3 Tibial Bearing Insert Cs Ramirez 6 Typ Cs Thkns 10mm Implanted:Qty: 1 on 10/22/2019 by Sammy Higgins DO at OR [facility] Left: Knee 01/07/2024 5531-G-610 -E / / [id number] documented as of this encounter Visit Diagnoses Diagnosis Chronic atrial fibrillation (HCC) Atrial fibrillation S/P TAVR (transcatheter aortic valve replacement) Heart valve replaced by other means Symptomatic anemia documented in this encounter Advance Directives Documents on File Type Date Recorded Patient Correctional Case Manager Expl anation Advance Directives and Livin g Will 05/25/2017 LIVING WILL Power of Instrument Person 05/25/2017 POWER OF A TTORNEY * Full [...] and were consensually agreed upon. Care Teams Rolling Mill Plugger Relationship Specialty Start Date End Date Heron Hutchinson MD [address] [place] [address] PCP - General 03/28/1997 documented as of this encounter
--- OUTSIDE RECORDS SUMMARY | 2024-01-26 18:49 | External Medical Summary | Summary of Care ---
Author Name Unknown Organization [facility] Address [address] [facility] [place] [address] Phone [phone] Care Team Providers Care Public Health Worker Name Role Phone Heron Hutchinson MD Primary Care Provider [phone] Reason for Visit * Reason Comments Dosage Adjustment In Person (Anticoag Cl inic) Encounter Details Date Type Department Care Team (Latest Contact Info) Description 01/12/2024 7:40 AM EDT Anticoagulation Pharmacy, [address] [address] [facility] [address] [place] [address] Anticoagulation management encounter*; Chronic atrial fibrillation (HCC); [...] 3 04/01/2019 Atherosclerotic heart diseas e of [place] coronary artery without angina pectoris 04/01/2019 Secondary [...] BIPAP Plus set at 12 cwp AHP long-term current use of 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 Overview: ICD-10 [...] URI with cough 08/15/2014 018 ORBIT-[employer] Research Other*[id number] 07/12/2010 07/12/2013 Overview: PROJECT: #[id number], SPONSOR: Owen, PI: Ezio Johnson MD SUMMARY: [...] encounter can be closed. CONTACT: Ziyad Neely, Manager Android Chronic rhinitis 01/18/2010 08/15/2014 Elevated prostate specific [...] this encounter Progress Notes * Taty Marte, [facility] - 01/12/2024 7:42 AM EDT Images from the original note were not included. Medication Therapy Disease Management - Anticoagulation Patient: Macario Lora Benito | : 1935 Subjective Patient-Reported Symptoms: Patient Findings Positives: Change in health (overall low energy), Change in diet/appetite (not eating as much) Negatives: Signs/symptoms of thrombosis, Signs/symptoms of bleeding, Change in alcohol use, Change in activity, Upcoming invasive procedure, Missed doses, Extra doses, Change in medications, Bruising Objective Current Warfarin Dose As of 01/12/2024 Warfarin maintenance plan: 2.5 mg (5 mg x 0.5) every Mon, Sat; 5 mg (5 mg x 1) all other days INR Result As of 01/12/2024 INR goal: 2.0-3.0 INR used for dosin.2 (01/12/2024) Assessment & Plan Warfarin Plan As of 01/12/2024 Full warfarin instructions: 01/11: Hold; Otherwise 2.5 mg every Mon, Wed, Fri; 5 mg all other days Next INR check: 01/23/2024 Repeat PT/INR in 2 week(s) Weekly dose: decreased Encouraged pt to get an acute visit if he is still not feeling well by next week. He is currently scheduled for endoscopy in Mar 2024. Additional Dosing Information: Description Endoscopy scheduled for 04/25/24 in [place] -- plan to hold warfarin w/o lovenox I spent a total of 10-19 minutes (exact time 16 mins) on the date of service in preparation, delivery, and documentation of the care provided to Macario Oliver excluding any time spent in the performance of separately billed services or time spent by another provider/QHP. Taty Marte [facility] Clinical Pharmacist 01/12/2024, 7:42 AM documented in this encounter Plan of Treatment Upcoming Encounters Date Type Department Care Team (Latest Contact Info) Description 01/23/2024 7:40 AM EDT Anticoagulation Pharmacy, [address] [address] [facility] [address] [place] [address] 01/26/2024 11:00 AM EDT Office Visit Cardiology, [facility] [address] [address] Diego George MD [address] [place] [address] 03/19/2024 3:30 PM EST Office Visit Cardiology, [facility] [address] [place] [address] Tahira Jones PA-C [address] [place] [address] [place] [address] 04/25/2024 12:41 PM EST Hospital Encounter OR [facility], Operating Room, [facility] - 4th Floor [address] [place] [phone] Maria Teresa Quiroga, DO [address] [place] [address] 04/25/2024 12:41 PM EST - 04/25/2024 1:29 PM EST Surgery OR [facility], Operating Room, [facility] - 4th Floor [address] [place] [phone] Maria Teresa Quiroga, DO [address] [place] [address] COLONOSCOPY FLEXIBLE PROXIMAL DIAGNOSTIC 09/17/2024 10:15 AM EDT Office Visit Urology, [facility] [address] [place] [address] Zeus Davidson MD [address] [place] [address] Scheduled Procedures Name Priority Associated Diagnoses Date/Ti me COLONOSCOPY FLEXIBLE PROXIMA L DIAGNOSTIC Symptomatic anemia 04/25/2024 12:41 PM EST ESOPHAGOGASTRODUODENOSCOPY ( EGD), FLEXIBLE, TRANSORAL, DIAGNOSTIC Symptomatic anemia 04/25/2024 12:41 PM EST Health Maintenance Due Date Last Done Comments Adult Wellness Visit 06/01/2003 Albumin/Creatinine Ratio 12/21/2022 022, 10/11/2019, 05/22/2018 COVID-19 Vaccine ( season) 2023 04/17/2022, 02/06/2021, 05/29/2020, Additional history exists CKD PHOS USE SMARTSET 56852 12/30/2023 10/0 07/2022, 12/21/2021, 09/12/2018, Additional history exists *NEPHROLOGY 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 HTN 01/06/2024 CKD HGB USE SMARTSET 21985 12/27/202412/27, 12/28/2023, 12/15/2023, Additional history exists Depression [...] this encounter Medical Devices Implanted Type Area Retail Merchandising Specialist Device Identifier Shelf Expiration Date Model / Serial / Lot Baseplate #6 Tritanium - [id number] Implanted:Qty: 1 on 10/22/2019 by Sammy Higgins DO at OR [facility] Left: Knee LISSET : ORTHOPAEDICS 07/23/2024 5536-B-600 / / [id number] Knee Triathlon Bead No Cuong L 6 - [id number] Implanted:Qty: 1 on 10/22/2019 by Sammy Higgins DO at OR [facility] Left: Knee LISSET : ORTHOPAEDICS 07/09/2024 5517-F-601 / / [id number] Patella Symmetric S33mm 9mm - [id number] Implanted:Qty: 1 on 10/22/2019 by Sammy Higgins [...] Comments INR FINGERSTICK, POINT OF CARE STAT 01/12/2024 7:45 AM EDT Chronic atrial fibrillation (HCC) S/P TAVR (transcatheter aortic valve replacement) Anticoagulation management encounter documented in this encounter Results * INR FINGERSTICK, POINT OF CARE (01/12/2024 7:45 AM EDT) Fingerstick INR 3.2 INR 7:48 AM EDT [facility] Blood 01/12/2024 7:45 AM EDT 01/12/2024 7:48 AM EDT Narrative [facility] - 01/12/2024 7:48 AM EDT Therapeutic ranges for non-operative patients: Prophylaxsis/treatment of DVT: (Range:2.0-3.0) Treatment of pulmonary embolism:(Range:2.0-3.0) Prevention of systemic embolism from: -tissue heart valves -acute myocardial infarction -valvular heart disease -atrial fibrillation (Range: 2.0-3.0) Mechanical prosthetic valves: (Range: 2.5-3.5) Taty Marte [facility] LAB POINT OF CARE TEST DOCKED DEVICE UNSOLICITED RESULTS [facility] [address] [place] [address] documented in this encounter Visit Diagnoses Diagnosis Anticoagulation management encounter- Primary Encounter for therapeutic drug monitoring Chronic atrial fibrillation (HCC) Atrial fibrillation S/P TAVR (transcatheter aortic valve replacement) Heart valve replaced by other means Symptomatic anemia documented in this encounter Advance Directives Documents on File Type Date Recorded 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 Care Teams Public Health Worker Relationship Specialty Start Date End Date Heron Hutchinson MD [address] [place] [address] PCP - General 03/28/1997 documented as of this encounter"
--- OUTSIDE RECORDS SUMMARY | 2024-01-26 18:49 | External Medical Summary ---
Author Name Unknown Address Unknown Organization : Laboratory Report Ordering Provider Test Date Status ALLA NEWBERRY 01/12/2024 07:45:14 Final Therapeutic ranges for non-o perative patients:
Prophylaxsis/treatment of DVT: (Range:2.0-3.0)
Treatment of pulmonary embolism:(Range:2.0-3.0)
Prevention of systemic embolism from:
-tissue heart valves
-acute myocardial infarction
-valvular heart disease
-atrial fibrillation
(Range: 2.0-3.0)
Mechanical prosthetic valves: (Range: 2.5-3.5) Observation Date Value Abnormality Reference (Units ) Status INR in Capillary blood by Coagulation assay 01/12/2024 07:45:14 3.2 (INR) Final Performing Location
--- OUTSIDE RECORDS SUMMARY | 2024-01-26 18:49 | External Medical Summary | Summary of Care ---
Author Name Unknown Organization [facility] Address [address] [facility] [place] [address] Phone [phone] Care Team Providers Care Director Behavioral Health Name Role Phone Dot Hutchinson MD Primary Care Provider [phone] Reason for Visit * Reason Comments eRx-Medication Refill Encounter Details Date Type Department Care Team (Late st Contact Info) Description 01/08/2024 Refill [facility] [address] [place] [address] Dot Hutchinson MD [address] [place] [address] Dyslipidemia, goal LDL below 100 Allergies No known active allergiesdocumented as of [...] ONCE DAILY 90 Tablet 3 4 Active hydroCHLOROthiaz fredi 25 MG Oral Tablet (Hydrodiuril)Ind ications:Chronic atrial fibrillation (HCC),S/P TAVR (transcatheter aortic valve replacement) TAKE ONE TABLET BY MOUTH 2-3 TIMES a WEEK 36 Tablet 4 Active Atorvastatin Calcium 20 MG Oral [...] 3 04/01/2019 Atherosclerotic heart diseas e of [place] coronary artery without angina pectoris 04/01/2019 Secondary [...] URI with cough 08/15/2014 018 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 CONTACT: Ziyad Neely, Bacteriologist Medical Chronic rhinitis 01/18/2010 08/15/2014 Elevated prostate specific [...] encounter Miscellaneous Notes * Telephone Encounter - Galdino Morfin [facility] - 01/10/2024 7:14 AM EDTSigned Prescriptions: Disp Refills Atorvastatin Calcium 20 MG Oral Tablet (Li*90 Tab*3 Sig: TAKE ONE TABLET BY MOUTH ONCE DAILYAuthorizing Provider: DOT HUTCHINSON User: GALDINO MORFIN------- documented in this encounter Plan of Treatment Upcoming Encounters Date Type Department Care Team (Latest Contact Info) Description 01/12/2024 7:40 AM EDT Anticoagulation Pharmacy, [place] [address] [place] [address] [facility] [address] [place] [facility] [place] [address] 01/26/2024 11:00 AM EDT Office Visit Cardiology, [facility] [address] [place] [address] Diego George MD [address] [place] [address] 03/19/2024 3:30 PM EST Office Visit Cardiology, [facility] [address] [place] [address] Tahira Jones [facility]C [address] [facility] [address] 04/25/2024 12:41 PM EST Hospital Encounter OR [facility], Operating Room, [facility] - 4th Floor [address] [place] [address] Maria Teresa Qurioga, DO [address] [place] [address] 04/25/2024 12:41 PM EST - 04/25/2024 1:29 PM EST Surgery OR [facility], Operating Room, [facility] - 4th Floor [address] [place] [address] Maria Teresa Quiroga, DO [address] [place] [address] COLONOSCOPY FLEXIBLE PROXIMAL DIAGNOSTIC 09/17/2024 10:15 AM EDT Office Visit Urology, [facility] [address] [place] [address] Zeus Davidson MD [address] [place] [address] Scheduled Procedures Name Priority Associated Diagnoses Date/Ti me COLONOSCOPY FLEXIBLE PROXIMA L DIAGNOSTIC Symptomatic anemia 04/25/2024 12:41 PM EST ESOPHAGOGASTRODUODENOSCOPY ( EGD), FLEXIBLE, TRANSORAL, DIAGNOSTIC Symptomatic anemia 04/25/2024 12:41 PM EST Health Maintenance Due Date Last Done Comments Adult Wellness Visit 06/01/2003 Albumin/Creatinine Ratio 12/21/2022 022, 10/11/2019, 05/22/2018 COVID-19 Vaccine ( season) 2023 04/17/2022, 02/06/2021, 05/29/2020, Additional history exists CKD PHOS USE SMARTSET 83047 12/30/202307/2022, 12/21/2021, 09/12/2018, Additional history exists *NEPHROLOGY 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 Left: Knee LISSET : ORTHOPAEDICS 07/23/2024 5536-B-600 / / [id number] Knee Triathlon Bead No Cuong L 6 - [id number] Implanted:Qty: 1 on 10/22/2019 by Sammy Higgins, at OR [facility] Left: Knee LISSET : ORTHOPAEDICS 07/09/2024 5517-F-601 / / [id number] Patella Symmetric S33mm 9mm - [id number] Implanted:Qty: 1 on 10/22/2019 by Sammy Higgins, at OR [facility] Left: Knee LISSET : ORTHOPAEDICS 10/29/2023 5556-L-339 / / [id number] Triathlon X3 Tibial Bearing Insert Cs Ramirez 6 Typ Cs Thkns 10mm Implanted:Qty: 1 on 10/22/2019 by Sammy Higgnis, at OR 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 Care Teams Director Behavioral Health Relationship Specialty Start Date End Date Dot Hutchinson MD [address] [place] [address] PCP - General 03/28/1997 documented as of this encounter
--- OUTSIDE RECORDS SUMMARY | 2024-01-26 18:50 | External Medical Summary ---
Author Name Unknown Address Unknown Organization : Laboratory Report Ordering Provider Test Date Status ALLA NEWBERRY 12/19/2023 07:38:42 Final Therapeutic ranges for non-o perative patients:
Prophylaxsis/treatment of DVT: (Range:2.0-3.0)
Treatment of pulmonary embolism:(Range:2.0-3.0)
Prevention of systemic embolism from:
-tissue heart valves
-acute myocardial infarction
-valvular heart disease
-atrial fibrillation
(Range: 2.0-3.0)
Mechanical prosthetic valves: (Range: 2.5-3.5) Observation Date Value Abnormality Reference (Units ) Status INR in Capillary blood by Coagulation assay 12/19/2023 07:38:42 3.8 (INR) Final Performing Location
--- OUTSIDE RECORDS SUMMARY | 2024-01-26 18:50 | External Medical Summary | Summary of Care ---
Author Name Unknown Organization [facility] Address [address] [facility] [place] [address] Phone [phone] Care Team Providers Care Fire Safety Manager Name Role Phone Heron Hutchinson MD Primary Care Provider [phone] Reason for Visit * Reason Comments Dosage Adjustment In Person (Anticoag Cl inic) Encounter Details Date Type Department Care Team (Latest Contact Info) Description 01/03/2024 7:30 AM EDT Anticoagulation Pharmacy, [address] [address] [facility] [address] [place] [address] Anticoagulation management encounter*; Chronic atrial fibrillation (HCC); S/P TAVR (transcatheter aortic valve replacement) Allergies No known active allergiesdocumented as of this encounter (statuses as of 01/03/2024) Medications Medication Sig Dispensed Refills Start Date [...] as of this encounter (statuses as of 01/03/2024) Active Problems Problem Noted Date Diagnosed Date [...] 3 04/01/2019 Atherosclerotic heart diseas e of [place] coronary artery without angina pectoris 04/01/2019 Secondary [...] 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 Overview: ICD-10 update of inactive term documented as of this encounter (statuses as of 01/03/2024) Resolved Problems Problem Noted Date Diagnosed Date Resolved Date Prediabetes 06/01/2020 11/10/2020 Overview: Per Prediabetes protocol Idioventricular rhythm 11/13/201811/15 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 CONTACT: Ziyad Neely, Computer Networking Instructor Chronic rhinitis 01/18/2010 08/15/2014 Elevated prostate specific antigen (PSA) 01/16/2002 03/26/2018 Benign prostatic hyperplasia 01/09/2002 03/26/2018 Overview: ICD-10 update of inactive term ICD-10 update of inactive term Anticoagulation management encounter 10/12/2001 03/26/2018 Open wound of forearm 09/01/20002017 Atrial fibrillation 09/25/1995 03/26/20 18 Dyslipidemia, goal to be determined 03/01/2013 documented as of this encounter (statuses as of 01/03/2024) Immunizations Name Administration Dates Next Due COVID-19 [...] this encounter Progress Notes * Taty Marte, [facility] - 01/03/2024 7:29 AM EDT Images from the original note were not included. Medication Therapy Disease Management - Anticoagulation Patient: Macario Flores Benito | : 1935 Subjective Patient-Reported Symptoms: Patient Findings Positives: Upcoming invasive procedure (colonoscopy/endoscopy pending scheduling-- pt has held warfarin for 5 days without issue), Change in diet/appetite (eating less in general) Negatives: Signs/symptoms of thrombosis, Signs/symptoms of bleeding, Change in health, Change in alcohol use, Change in activity, Missed doses, Extra doses, Change in medications, Bruising Objective Current Warfarin Dose As of 01/03/2024 Warfarin maintenance plan: 5 mg (5 mg x 1) every day INR Result As of 01/03/2024 INR goal: 2.0-3.0 INR used for dosin.8 (01/03/2024) Assessment & Plan Warfarin Plan As of 01/03/2024 Full warfarin instructions: 01/02: Hold; Otherwise 2.5 mg every Mon, Sat; 5 mg all other days Next INR check: 01/12/2024 Repeat PT/INR in 1 week(s) Weekly dose: decreased Additional Dosing Information: I spent a total of 10-19 minutes (exact time 10 mins) on the date of service in preparation, delivery, and documentation of the care provided to Macario Oliver excluding any time spent in the performance of separately billed services or time spent by another provider/QHP. Taty Marte [facility] Clinical Pharmacist 01/03/2024, 7:29 AM documented in this encounter Plan of Treatment Upcoming Encounters Date Type Department Care Team (Late st Contact Info) Description 01/04/2024 2:30 PM EDT Office Visit Gastroenterology, [facility] [address] [place] [address] Lily Rollins PA-C [address] [facility] [address] 01/12/2024 7:40 AM EDT Anticoagulation Pharmacy, [address] [address] [place] [address] [place] [address] 01/26/2024 11:00 AM EDT Office Visit Cardiology, [facility] [address] [place] [address] Diego George MD [address] [place] [address] 03/19/2024 3:30 PM EST Office Visit Cardiology, [facility] [address] [place] [address] Tahira Jones PA-C [address] [place] [address] 09/17/2024 10:15 AM EDT Office Visit Urology, [facility] [address] [place] [address] Zeus Davidson MD [address] [place] [address] Health Maintenance Due Date Last Done Comments Adult Wellness Visit 06/01/2003 Albumin/Creatinine Ratio 12/21/2022 022, 10/11/2019, 05/22/2018 COVID-19 Vaccine ( season) 2023 04/17/2022, 02/06/2021, 05/29/2020, Additional history exists CKD PHOS USE SMARTSET 14442 12/30/202307/2022, 12/21/2021, 09/12/2018, Additional history exists HbA1c 12/14/2024 12/15/2023, 07/2022, 06/29/2022, Additional history exists CKD HGB USE SMARTSET 92079 12/27/202412/27, 12/28/2023, 12/15/2023, Additional history exists Depression [...] this encounter Medical Devices Implanted Type Area Roving Inspector Device Identifier Shelf Expiration Date Model / Serial / Lot Baseplate #6 Tritanium - [id number] Implanted:Qty: 1 on 10/22/2019 by Sammy Higgins DO at OR [facility] Left: Knee LISSET : ORTHOPAEDICS 07/23/2024 5536-B-600 / / [id number] Knee Triathlon Bead No Cuong L 6 - [id number] Implanted:Qty: 1 on 10/22/2019 by Sammy Higgins DO at OR [facility] Left: Knee LISSET : ORTHOPAEDICS 07/09/2024 5517-F-601 / / [id number] Patella Symmetric S33mm 9mm - [id number] Implanted:Qty: 1 on 10/22/2019 by Sammy Higgins DO at OR [facility] Left: Knee LISSET : ORTHOPAEDICS 10/29/2023 5556-L-339 / / [id number] Triathlon X3 Tibial Bearing Insert Cs Ramirez 6 Typ Cs Thkns 10mm Implanted:Qty: 1 on 10/22/2019 by Sammy Higgins DO at OR [facility] Left: Knee 01/07/2024 5531-G-610 -E / / [id number] documented as of this encounter Procedures Procedure Name Priority Date/Time Associated Diagnosis Comments INR FINGERSTICK, POINT OF CARE STAT 01/03/2024 7:32 AM EDT Chronic atrial fibrillation (HCC) S/P TAVR (transcatheter aortic valve replacement) Anticoagulation management encounter documented in this encounter Results * INR FINGERSTICK, POINT OF CARE (01/03/2024 7:32 AM EDT) Fingerstick INR 3.8 INR 7:35 AM EDT [facility] Blood 01/03/2024 7:32 AM EDT 01/03/2024 7:35 AM EDT Narrative [facility] - 01/03/2024 7:35 AM EDT Therapeutic ranges for non-operative patients: Prophylaxsis/treatment of DVT: (Range:2.0-3.0) Treatment of pulmonary embolism:(Range:2.0-3.0) Prevention of systemic embolism from: -tissue heart valves -acute myocardial infarction -valvular heart disease -atrial fibrillation (Range: 2.0-3.0) Mechanical prosthetic valves: (Range: 2.5-3.5) Taty Marte [facility] LAB POINT OF CARE TEST DOCKED DEVICE UNSOLICITED RESULTS LAB[facility] [place] [address] [place] [address] documented in this encounter Visit Diagnoses Diagnosis Anticoagulation management encounter- Primary Encounter for therapeutic drug monitoring Chronic atrial fibrillation (HCC) Atrial fibrillation S/P TAVR (transcatheter aortic valve replacement) Heart valve replaced by other means documented in this encounter Advance Directives Documents on File Type Date Recorded Patient Prepared Foods Production Team Member Expl anation Advance Directives and Livin g Will 05/25/2017 LIVING WILL Power of Launchman 05/25/2017 POWER OF A TTORNEY * Full [...] and were consensually agreed upon. Care Teams Fire Safety Manager Relationship Specialty Start Date End Date Heron Hutchinson MD [address] [place] [address] PCP - General 03/28/1997 documented as of this encounter"
--- OUTSIDE RECORDS SUMMARY | 2024-01-26 18:50 | External Medical Summary ---
Author Name Unknown Address Unknown Organization K01:LABORATORY [facility] [place] - [address] [facility] [address] [facility] [address] Laboratory Report Ordering Provider Test Date Status KRYS CHRIS 12/28/2023 12:43:20 Final Observation Date Value Abnormality Reference (Units ) Status WBC, Total 12/28/2023 12:43:20 8.23 4.00-10.80 (K/uL) Final RBC 12/28/2023 12:43:20 3.24 4.50-5.25 (M/uL) Final Hemoglobin 12/28/2023 12:43:20 9.4 Below low normal 14.0-16.8 (g/dL) Final HCT 12/28/2023 12:43:20 31.0 Below low normal 40.0-48.4 (%) Final MCV 12/28/2023 12:43:20 95.7 82.0-99.5 (fL) Final MCH 12/28/2023 12:43:20 29.0 27.0-34.0 (pg) Final MCHC 12/28/2023 12:43:20 30.3 32.0-36.0 (g/dL) Final RDW 12/28/2023 12:43:20 14.6 11.5-15.5 (%) Final Platelets 12/28/2023 12:43:20 228 140-400 (K/uL) Final MPV 12/28/2023 12:43:20 10.0 6.6-11.1 (fL) Final Nucleated erythrocytes/100 leukocytes [Ratio] in Blood by Automated count 12/28/2023 12:43:20 0 <=0 (/100 WBCs) Final Performing Location LABORATORY C - [address] [place] [address]
--- OUTSIDE RECORDS SUMMARY | 2024-01-26 18:50 | External Medical Summary ---
Author Name Unknown Address Unknown Organization K01:LABORATORY [facility] [place] - [address] [facility] [place] [address] Laboratory Report Ordering Provider Test Date Status KRYS CHRIS 12/28/2023 12:43:20 Final Observation Date Value Abnormality Reference (Units ) Status SYNC LEUKOCYTES IN BLOOD BY AUTOMATED COUNT 12/28/2023 12:43:20 8.23 4.00-10.80 (K/uL) Final Segs 12/28/2023 12:43:20 74.3 40.0-75.0 (%) Final Lymphs % 12/28/2023 12:43:20 12.6 Below low normal 18.0-42.0 (%) Final Monos 12/28/2023 12:43:20 10.8 1.0-11.0 (%) Final Eosinophils 12/28/2023 12:43:20 1.3 0.0-6.0 (%) Final Basos 12/28/2023 12:43:20 0.5 0.0-2.0 (%) Final Immature Granulocyte, Percent 12/28/2023 12:43:20 0.5 0.0-2.0 (%) Final Absolute Segs 12/28/2023 12:43:20 6.11 1.80-7.70 (K/uL) Final Lymphs, absolute 12/28/2023 12:43:20 1.04 1.00-4.80 (K/ul) Final Monos, Abs 12/28/2023 12:43:20 0.89 0.00-1.10 (K/uL) Final Eos, Abs 12/28/2023 12:43:20 0.11 0.00-0.70 (K/uL) Final Basos, Abs 12/28/2023 12:43:20 0.04 0.00-0.20 (K/uL) Final Immature Granulocytes, Number 12/28/2023 12:43:20 0.04 0.00-0.20 (K/uL) Final Performing Location LABORATORY [facility] [place] - [address] [facility] [address]
--- OUTSIDE RECORDS SUMMARY | 2024-01-26 18:50 | External Medical Summary | Summary of Care ---
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 CONTACT: Ziyad Neely, Scanning Coordinator Chronic rhinitis 01/18/2010 08/15/2014 Elevated prostate specific antigen (PSA) 01/16/2002 03/26/2018 Benign prostatic hyperplasia 01/09/2002 03/26/2018 Overview: ICD-10 update of inactive term ICD-10 update of inactive term Anticoagulation management encounter 10/12/2001 03/26/2018 Open wound of forearm 09/01/20002017 Atrial fibrillation 09/25/1995 03/26/20 18 Dyslipidemia, goal to be determined 03/01/2013 documented as of this encounter (statuses as of 01/01/2024) Immunizations Name Administration Dates Next Due COVID-19 [...] encounter Miscellaneous Notes * Telephone Encounter - Alexa Venegas, [facility] - 01/01/2024 4:04 PM EDTSigned Prescriptions: Disp Refills amLODIPine Besylate 2.5 MG Oral Tablet (No*90 Tab*3 Sig: TAKE 1 TABLET BY MOUTH ONCE DAILY IN THE MORNINGAuthorizing Provider: DOT HUTCHINSON User: ALEXA VENEGAS documented in this encounter Plan of Treatment Upcoming Encounters Date Type Department Care Team (Late st Contact Info) Description 01/03/2024 7:30 AM EDT Anticoagulation Pharmacy, [place] [address] [address] [facility], [place] [address] [facility] [address] [place] [facility] [address] 01/19/2024 1:40 PM EDT Anticoagulation Pharmacy, [place] [address] [address] [facility] [place] [address] [facility] [address] [facility] [place] [address] 01/26/2024 11:00 AM EDT Office Visit Cardiology, [facility] [address] [place] [address] Diego George MD [address] [place] [address] 03/19/2024 3:30 PM EST Office Visit Cardiology, [facility] [address] [place] [address] Tahira Jones PA-C [address] [place] [address] 09/17/2024 10:15 AM EDT Office Visit Urology, [facility] [address] [place] [address] Zeus Davidson MD [address] [place] [address] Health Maintenance Due Date Last Done Comments Adult Wellness Visit 06/01/2003 Albumin/Creatinine Ratio 12/21/2022 022, 10/11/2019, 05/22/2018 COVID-19 Vaccine ( season) 2023 04/17/2022, 02/06/2021, 05/29/2020, Additional history exists CKD PHOS USE SMARTSET 47872 12/30/20230 07/2022, 12/21/2021, 09/12/2018, Additional history exists HbA1c 12/14/2024 12/15/2023, 07/2022, 06/29/2022, Additional history exists CKD HGB USE SMARTSET 35503 12/27/202412/27, 12/28/2023, 12/15/2023, Additional history exists Depression [...] encounter Medical Devices Implanted Type Area Senior Cost Analyst Device Identifier Shelf Expiration Date Model / Serial / Lot Baseplate #6 Tritanium - [id number] Implanted:Qty: 1 on 10/22/2019 by Sammy Higgins DO at OR [facility] Left: Knee LISSET : ORTHOPAEDICS 07/23/2024 5536-B-600 / / [id number] Knee Triathlon Bead No Cuong L 6 - [id number] Implanted:Qty: 1 on 10/22/2019 by Sammy Higgins, DO at OR [facility] Left: Knee LISSET : ORTHOPAEDICS 07/09/2024 5517-F-601 / / [id number] Patella Symmetric S33mm 9mm - [id number] Implanted:Qty: 1 on 10/22/2019 by Sammy Higgins, DO at OR [facility] Left: Knee LISSET : ORTHOPAEDICS 10/29/2023 5556-L-339 / / [id number] Triathlon X3 Tibial Bearing Insert Cs Ramirez 6 Typ Cs Thkns 10mm Implanted:Qty: 1 on 10/22/2019 by Sammy Higgins, DO at OR [facility] Left: Knee 01/07/2024 5531-G-610 -E / / [id number] documented as of this encounter Visit Diagnoses Diagnosis 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 Care Teams Sales Research Analyst Relationship Specialty Start Date End Date Dot Hutchinson MD [address] [place] [address] PCP - General 03/28/1997 documented as of this encounter
--- OUTSIDE RECORDS SUMMARY | 2024-01-26 18:50 | External Medical Summary | Summary of Care ---
Author Name Unknown Organization [facility] Address [address] [facility] [place] [address] Phone [phone] Care Team Providers Care Geomagnetist Name Role Phone Heron Hutchinson MD Primary Care Provider Reason for Visit * Reason Onset Date Comments Appointment 12/28/2023 Encounter Details Date Type Department Care Team (Late st Contact Info) Description 12/28/2023 Telephone [facility] [address] [place] [address] Heron Hutchinson MD [address] [place] [address] Appointment Allergies No known active [...] A WEEK 36 Tablet 3 07/07/2022 Active amLODIPine Besylate 2.5 MG Oral Tablet (Norvasc)Indicatio ns: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 90 Tablet 3 12/29/2022 Active Atorvastatin Calcium 20 MG Oral Tablet [...] the day. 90 Capsule 3 12/28/2023 Active documented as of this encounter (statuses [...] 04/01/2019 Atherosclerotic heart diseas e of [place] coronary artery without angina pectoris 04/01/2019 Secondary [...] URI with cough 08/15/2014 018 [employer] Other*[id number] 07/12/2010 07/12/2013 Overview: PROJECT: #[id number], SPONSOR: Owen, PI: Ezio Johnson MD SUMMARY: [...] encounter can be closed. CONTACT: Ziyad Neely, Motor Adjuster Chronic rhinitis 01/18/2010 08/15/2014 Elevated prostate specific [...] encounter Miscellaneous Notes * Telephone Encounter - Jessica Krueger OSA [...] Description 01/03/2024 7:30 AM EDT Anticoagulation Pharmacy, [place] [address] [facility], [place] [address] [facility] [address] [place] [facility] [address] 01/19/2024 1:40 PM EDT Anticoagulation Pharmacy, [place] [address] [facility], [place] [address] [place], [facility] [address] [place] [facility] [address] 01/26/2024 11:00 AM EDT Office Visit Cardiology, [facility] [address] [place] [address] Diego George MD [address] [place] [address] 03/19/2024 3:30 PM EST Office Visit Cardiology, [facility] [address] [place] [address] Tahira Jones PA-C [address] [place], [place] [address] [address] 09/17/2024 10:15 AM EDT Office Visit Urology, [facility] [address] [place] [address] Zeus Davidson MD [address] [place] [address] Health Maintenance Due Date Last Done Comments Adult Wellness Visit 06/01/2003 Albumin/Creatinine Ratio 12/21/202212/21/2 022, 10/11/2019, 05/22/2018 COVID-19 Vaccine ( season) 2023 04/17/2022, 02/06/2021, 05/29/2020, Additional history exists CKD PHOS USE SMARTSET 12681 12/30/20230 07/2022, 12/21/2021, 09/12/2018, Additional history exists HbA1c 12/14/2024 12/15/2023, 07/2022, 06/29/2022, Additional history exists CKD HGB USE SMARTSET 69579 12/27/202412/27, 12/28/2023, 12/15/2023, Additional history exists Depression [...] this encounter Medical Devices Implanted Type Area Gift Manager Device Identifier Shelf Expiration Date Model / Serial / Lot Baseplate #6 Tritanium - [id number] Implanted:Qty: 1 on 10/22/2019 by Sammy Higgins DO at OR [facility] Left: Knee LISSET : ORTHOPAEDICS 07/23/2024 5536-B-600 / / [id number] Knee Triathlon Bead No Cuong L 6 - [id number] Implanted:Qty: 1 on 10/22/2019 by Sobolewski, Sammy Conor, DO at OR [facility] Left: Knee LISSET : ORTHOPAEDICS 07/09/2024 5517-F-601 / / [id number] Patella Symmetric S33mm 9mm - [id number] Implanted:Qty: 1 on 10/22/2019 by Sammy Higgins, DO at OR [facility] Left: Knee LISSET : ORTHOPAEDICS 10/29/2023 5556-L-339 / / [id number] Triathlon X3 Tibial Bearing Insert Cs Ramirez 6 Typ Cs Thkns 10mm Implanted:Qty: 1 on 10/22/2019 by Sammy Higgins, DO at OR [facility] Left: Knee 01/07/2024 5531-G-610 -E / / [id number] documented as of this encounter Advance Directives Documents on File Type Date Recorded Patient Cash Teller Expl anation Advance Directives and Livin g Will 05/25/2017 LIVING WILL Power of Professor Of Biostatistics 05/25/2017 POWER OF A TTORNEY * Full [...] and were consensually agreed upon. Care Teams Geomagnetist Relationship Specialty Start Date End Date Heron Hutchinson MD [address] [place] [address] PCP - General 03/28/1997 documented as of this encounter
--- OUTSIDE RECORDS SUMMARY | 2024-01-26 18:50 | External Medical Summary | Summary of Care ---
Author Name Unknown Organization [facility] Address [address] [facility] [place] [address] Phone [phone] Care Team Providers Care Crate Icer Name Role Phone Heron Hutchinson MD Primary Care Provider Reason for Visit * Reason Comments Outpatient Testing Encounter Details Date Type Department Care Team (Late st Contact Info) Description 12/28/2023 12:50 PM EDT Laboratory Laboratory, [place] [address] [place] [address] [place], Laboratory [address] [place] [address] Iron deficiency anemia due to chronic blood loss Allergies No known active allergiesdocumented as of this encounter (statuses as of 12/28/2023) Medications Medication Sig Dispensed Refills Start Date [...] as of this encounter (statuses as of 12/28/2023) Active Problems Problem Noted Date Diagnosed Date [...] 3 04/01/2019 Atherosclerotic heart diseas e of [place] coronary artery without angina pectoris 04/01/2019 Secondary [...] BIPAP Plus set at 12 cwp AHP alf current use of 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 Overview: ICD-10 update of inactive term documented as of this encounter (statuses as of 12/28/2023) Resolved Problems Problem Noted Date Diagnosed Date Resolved Date Prediabetes 06/01/2020 11/10/2020 Overview: Per Prediabetes protocol Idioventricular rhythm 11/13/201811/15 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 CONTACT: Ziyad Neely, Computer Drafter Chronic rhinitis 01/18/2010 08/15/2014 Elevated prostate specific antigen (PSA) 01/16/2002 03/26/2018 Benign prostatic hyperplasia 01/09/2002 03/26/2018 Overview: ICD-10 update of inactive term ICD-10 update of inactive term Anticoagulation management encounter 10/12/2001 03/26/2018 Open wound of forearm 09/01/20002017 Atrial fibrillation 09/25/1995 03/26/20 18 Dyslipidemia, goal to be determined 03/01/2013 documented as of this encounter (statuses as of 12/28/2023) Immunizations Name Administration Dates Next Due COVID-19 [...] Care Team (Late st Contact Info) Description 01/19/2024 1:40 PM EDT Anticoagulation Pharmacy, [place] [address] [place] [address] [facility] [address] [place] [address] 01/26/2024 11:00 AM EDT Office Visit Cardiology, [facility] [address] [place] [address] Diego George MD [address] [place] [address] 03/19/2024 3:30 PM EST Office Visit Cardiology, [facility] [address] [place] [address] Tahira Jones PA-C [address] [place] [address] [place] [address] 09/17/2024 10:15 AM EDT Office Visit Urology, [facility] [address] [facility] [place] [address] Zeus Davidson MD [address] [place] [address] Pending Results Name Type Priority Associated Diagnoses Date /Time CBC WITH WBC DIFFERENTIAL Lab Routine Iron deficiency anemia due to chronic blood loss 12/28/2023 12:43 PM EDT CBC Lab Routine Iron deficiency anemia due to chronic blood loss 12/28/2023 12:43 PM EDT DIFFERENTIAL, AUTOMATED Lab Routine Iron deficiency anemia due to chronic blood loss 12/28/2023 12:43 PM EDT Health Maintenance Due Date Last Done Comments Adult Wellness Visit 06/01/2003 Albumin/Creatinine Ratio 12/21/2022 022, 10/11/2019, 05/22/2018 COVID-19 Vaccine ( season) 2023 04/17/2022, 02/06/2021, 05/29/2020, Additional history exists CKD PHOS USE SMARTSET 38805 12/30/202307/2022, 12/21/2021, 09/12/2018, Additional history exists CKD HGB USE SMARTSET 79887 12/14/202412/14, 12/15/2023, 12/29/2022, Additional history exists HbA1c 12/14/2024 12/15/2023, 07/2022, 06/29/2022, Additional history exists Depression Screening 12/27/2024 12/28/2023 [...] this encounter Medical Devices Implanted Type Area Hook And Eye Attacher Device Identifier Shelf Expiration Date Model / Serial / Lot Baseplate #6 Tritanium - [id number] Implanted:Qty: 1 on 10/22/2019 by Sammy Higgins DO at OR [facility] Left: Knee LISSET : ORTHOPAEDICS 07/23/2024 5536-B-600 / / [id number] Knee Triathlon Bead No Cuong L 6 - [id number] Implanted:Qty: 1 on 10/22/2019 by Sammy Higgins DO at OR [facility] Left: Knee LISSET : ORTHOPAEDICS 07/09/2024 5517-F-601 / / [id number] Patella Symmetric S33mm 9mm - [id number] Implanted:Qty: 1 on 10/22/2019 by Sammy Higgins [...] as of this encounter Visit Diagnoses Diagnosis Iron deficiency anemia due to chronic blood loss Iron deficiency anemia secondary to blood loss (chronic) documented in this encounter Advance Directives Documents on File Type Date Recorded Patient Golf Course Architect Expl anation Advance Directives and Livin g Will 05/25/2017 LIVING WILL Power of Environmental Designer 05/25/2017 POWER OF A TTORNEY * [...] and were consensually agreed upon. Care Teams Crate Icer Relationship Specialty Start Date End Date Heron Hutchinson MD [address] [place] [address] PCP - General 03/28/1997 documented as of this encounter
--- OUTSIDE RECORDS SUMMARY | 2024-01-26 18:50 | External Medical Summary | Summary of Care ---
Author Name Unknown Organization [facility] Address [address] [facility] [place] [address] Phone [phone] Care Team Providers Care Systems Program Manager Name Role Phone Heron Hutchinson MD Primary Care Provider [phone] Reason for Visit * Reason Onset Date Comments Appointment 12/28/2023 Encounter Details Date Type Department Care Team (Late st Contact Info) Description 12/28/2023 Telephone [facility] [address] [place] [address] Heron Hutchinson MD [address] [place] [address] Appointment Allergies No known active [...] 3 04/01/2019 Atherosclerotic heart diseas e of [place] coronary artery without angina pectoris 04/01/2019 Secondary [...] URI with cough 08/15/2014 018 [employer] Other*[id number] 07/12/2010 07/12/2013 Overview: PROJECT: #[id number], SPONSOR: Owen, PI: Ezio Johnson MD SUMMARY: [...] encounter can be closed. CONTACT: Ziyad Neely, Wastewater Treatment Plant Attendant Chronic rhinitis 01/18/2010 08/15/2014 Elevated prostate specific [...] encounter Miscellaneous Notes * Telephone Encounter - Raulito Arechiga OSA - 12/28/2023 12:44 PM EDT Per Provider- Patient needs Upper and lower endoscopy within 10 days. Please assist with schedulingASAP documented in this encounter Plan of Treatment Upcoming Encounters Date Type Department Care Team (Late st Contact Info) Description 01/19/2024 1:40 PM EDT [facility] [place] [address] [facility] [address] [facility] [address] [facility] [address] 01/26/2024 11:00 AM EDT Office Visit Cardiology, [facility] [address] [facility] [place] [address] Diego George MD [address] [place] [address] 03/19/2024 3:30 PM EST Office Visit Cardiology, [facility] [address] [place] [address] Tahira Jones PA-C [address] [facility] [place] [address] 09/17/2024 10:15 AM EDT Office Visit Urology, [facility] [place] [address] Zeus [place] MD [address] [facility] [place] [address] Health Maintenance Due Date Last Done Comments Adult Wellness Visit 06/01/2003 Albumin/Creatinine Ratio 12/21/2022 022, 10/11/2019, 05/22/2018 COVID-19 Vaccine ( season) 2023 04/17/2022, 02/06/2021, 05/29/2020, Additional history exists CKD PHOS USE SMARTSET 67048 12/30/202307/2022, 12/21/2021, 09/12/2018, Additional history exists CKD HGB USE SMARTSET 52711 12/14/202412/14, 12/15/2023, 12/29/2022, Additional history exists HbA1c [...] this encounter Medical Devices Implanted Type Area Lozenge Dough Mixer Device Identifier Shelf Expiration Date Model / Serial / Lot Baseplate #6 Tritanium - [id number] Implanted:Qty: 1 on 10/22/2019 by Sammy Higgins DO at OR [facility] Left: Knee LISSET : ORTHOPAEDICS 07/23/2024 5536-B-600 / / [id number] Knee Triathlon Bead No Cuong L 6 - [id number] Implanted:Qty: 1 on 10/22/2019 by Sammy Higgins DO at OR [facility] Left: Knee LISSET : ORTHOPAEDICS 07/09/2024 5517-F-601 / / [id number] Patella Symmetric S33mm 9mm - [id number] Implanted:Qty: 1 on 10/22/2019 by Sammy Higgins DO at OR [facility] Left: Knee LISSET : ORTHOPAEDICS 10/29/2023 5556-L-339 / / [id number] Triathlon X3 Tibial Bearing Insert Cs Ramirez 6 Typ Cs Thkns 10mm Implanted:Qty: 1 on 10/22/2019 by Sammy Higgins DO at OR [facility] Left: Knee 01/07/2024 5531-G-610 -E / / [id number] documented as of this encounter Advance Directives Documents on File Type Date Recorded Patient Master Motorcycle Technician Expl anation Advance Directives and Livin g Will 05/25/2017 LIVING WILL Power of Tool Distributor 05/25/2017 POWER OF A TTORNEY * Full [...] and were consensually agreed upon. Care Teams Systems Program Manager Relationship Specialty Start Date End Date Heron Hutchinson MD [address] [place] [address] PCP - General 03/28/1997 documented as of this encounter
--- OUTSIDE RECORDS SUMMARY | 2024-01-26 18:50 | External Medical Summary | Summary of Care ---
Author Name Unknown Organization [facility] Address [address] [facility] [place] [address] Phone [phone] Care Team Providers Care Shot Core Drill Operator Helper Name Role Phone Heron Hutchinson MD Primary Care Provider [phone] Reason for Visit * Reason Onset Date Comments Appointment 12/28/2023 Encounter Details Date Type Department Care Team (Late st Contact Info) Description 12/28/2023 Telephone [facility] [address] [place] [address] Heron Hutchinson MD [address] [place] [address] Appointment Allergies No known active [...] 3 04/01/2019 Atherosclerotic heart diseas e of [place] coronary artery without angina pectoris 04/01/2019 Secondary [...] BIPAP Plus set at 12 cwp 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 CONTACT: Ziyda Neely, Marine Engineering Technicians Chronic rhinitis 01/18/2010 08/15/2014 Elevated prostate specific [...] 01/01/2024 11:50 AM * Telephone Encounter - Hawk Raulito CEE Christianson - 12/28/2023 12:44 PM EDT Per Provider- Patient needs Upper and lower endoscopy within 10 days. Please assist with schedulingASAP documented in this encounter Plan of Treatment Upcoming Encounters Date Type Department Care Team (Late st Contact Info) Description 01/03/2024 7:30 AM EDT Anticoagulation Pharmacy, [place] [address] [place] [facility] [place] [address] [facility] [address] [place] [facility] [place] [address] 01/19/2024 1:40 PM EDT Anticoagulation Pharmacy, [place] [address] [place] [facility] [place] [address] [facility] [address] [place] [facility] [place] [address] 01/26/2024 11:00 AM EDT Office Visit Cardiology, [facility] [address] [facility] [place] [address] Diego George MD [address] [facility] [place] [address] 03/19/2024 3:30 PM EST Office Visit Cardiology, [facility] [address] [facility] [place] [address] Tahira Jones PA-C [address] [place] [address] [place] [address] 09/17/2024 10:15 AM EDT Office Visit Urology, [facility] [address] [facility] [place] [address] Zeus [place] MD [address] [place] [address] Health Maintenance Due Date Last Done Comments Adult Wellness Visit 06/01/2003 Albumin/Creatinine Ratio 12/21/2022 022, 10/11/2019, 05/22/2018 COVID-19 Vaccine ( season) 2023 04/17/2022, 02/06/2021, 05/29/2020, Additional history exists CKD PHOS USE SMARTSET 67582 12/30/202307/2022, 12/21/2021, 09/12/2018, Additional history exists HbA1c 12/14/2024 12/15/2023, 07/2022, 06/29/2022, Additional history exists CKD HGB USE SMARTSET 97701 12/27/202412/27, 12/28/2023, 12/15/2023, Additional history exists Depression [...] this encounter Medical Devices Implanted Type Area Nnp Device Identifier Shelf Expiration Date Model / Serial / Lot Baseplate #6 Tritanium - [id number] Implanted:Qty: 1 on 10/22/2019 by Sammy Higgins, DO at OR [facility] Left: Knee LISSET : ORTHOPAEDICS 07/23/2024 5536-B-600 / / [id number] Knee Triathlon Bead No Cuong L 6 - [id number] Implanted:Qty: 1 on 10/22/2019 by Sammy Higgins, DO at OR [facility] Left: Knee LISSET : ORTHOPAEDICS 07/09/2024 5517-F-601 / / [id number] Patella Symmetric S33mm 9mm - [id number] Implanted:Qty: 1 on 10/22/2019 by Sammy Higgins, DO at OR [facility] Left: Knee LISSET : ORTHOPAEDICS 10/29/2023 5556-L-339 / / [id number] Triathlon X3 Tibial Bearing Insert Cs Ramirez 6 Typ Cs Thkns 10mm Implanted:Qty: 1 on 10/22/2019 by Sammy Higgins, DO at OR [facility] Left: Knee 01/07/2024 5531-G-610 -E / / [id number] documented as of this encounter Advance Directives Documents on File Type Date Recorded Patient Dye Reel Operator Expl anation Advance Directives and Livin g Will 05/25/2017 LIVING WILL Power of Canvas Products Sales Representative 05/25/2017 POWER OF A TTORNEY * [...] and were consensually agreed upon. Care Teams Shot Core Drill Operator Helper Relationship Specialty Start Date End Date Heron Hutchinson MD [address] [place], [place] [id number] PCP - General 03/28/1997 documented as of this encounter
--- OUTSIDE RECORDS SUMMARY | 2024-01-26 18:50 | External Medical Summary | Summary of Care ---
Author Name Unknown Organization [facility] Address [address] [facility] [place] [address] Phone [phone] Care Team Providers Care Lottery Manager Name Role Phone Heron Hutchinson MD Primary Care Provider [phone] Reason for Visit * Reason Comments Dosage Adjustment In Person (Anticoag Cl inic) Encounter Details Date Type Department Care Team (Latest Contact Info) Description 12/19/2023 7:30 AM EDT Anticoagulation Pharmacy, [address] [address] [facility] [address] [place] [address] Anticoagulation management encounter*; Chronic atrial fibrillation (HCC); S/P TAVR (transcatheter aortic valve replacement) Allergies No known active allergiesdocumented as of this encounter (statuses as of 12/19/2023) Medications Medication Sig Dispensed Refills Start Date [...] the morning. 30 Tablet 1 12/18/2023 Active documented as of this encounter (statuses as of 12/19/2023) Active Problems Problem Noted Date Diagnosed Date [...] 3 04/01/2019 Atherosclerotic heart diseas e of [place] coronary artery without angina pectoris 04/01/2019 Secondary [...] BIPAP Plus set at 12 cwp [facility]HP care home current use of 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 Overview: ICD-10 update of inactive term documented as of this encounter (statuses as of 12/19/2023) Resolved Problems Problem Noted Date Diagnosed Date Resolved Date Prediabetes 06/01/2020 11/10/2020 Overview: Per Prediabetes protocol Idioventricular rhythm 11/13/201811/15 Hypertensive kidney disease with chronic kidney disease stage III 09/24/2018 02/06/2020 Overview: Per CKD protocol Kidney disease, chronic, sta ge III (GFR 30-59 ml/min) 09/05/2017 10/04/2018 Overview: Per CKD protocol #1 Atrial fibrillation 09/01/2015 03/26/20 18 Viral URI with cough 08/15/2014 018 [employer] Research Other*[id number] 07/12/2010 07/12/2013 Overview: PROJECT: #[id number], SPONSOR: Owen, PI: Ezio Johnson MD SUMMARY: [...] encounter can be closed. CONTACT: Ziyad Neely, Title Checker Chronic rhinitis 01/18/2010 08/15/2014 Elevated prostate specific antigen (PSA) 01/16/2002 03/26/2018 Benign prostatic hyperplasia 01/09/2002 03/26/2018 Overview: ICD-10 update of inactive term ICD-10 update of inactive term Anticoagulation management encounter 10/12/2001 03/26/2018 Open wound of forearm 09/01/20002017 Atrial fibrillation 09/25/1995 03/26/20 18 Dyslipidemia, goal to be determined 03/01/2013 documented as of this encounter (statuses as of 12/19/2023) Immunizations Name Administration Dates Next Due COVID-19 mRNA, LNP-s, No Pre serve, 2-Dose Series (Moderna) 05/29/2020,05/01/2020 COVID-19, mRNA, LNP-s, PF, B ooster, 100mcg/0.5mg (Moderna) 02/06/2021 Covid-19, Mrna, Lnp-s, Pf, B ivalent, 30 Mcg, IM, 12 yrs and above (Pfizer) 04/17/2022 Pneumococcal Conjugate Vacc, 13 Valent (Prevnar) 08/28/2014 Pneumococcal Polysaccharide PPV23 (Pneumovax) 09/20/2011 Season Influenza, Quad, PF, Adjuvanted, 65+ Yrs, IM (FLUAD) 02/18/2023 Seasonal Influenza, MDCK, Tr ivalent, PF, (Flucelvax) 04/02/2013 Seasonal Influenza, PF, 6 M & above, IM , (FluLaval or Fluzone) 12/25/2019,01/22/2019,03/26/2018 Seasonal Influenza, Quadriva lent Hd (Fluzone Hd) 12/07/2022,12/28/2021,12/04/2020 Seasonal Influenza, Quadriva lent, No Preserve, IM 01/22/2019,02/23/2015 Seasonal Influenza, Trivalen t, (IIV3), with Preserv, (Fluzone) 12/17/2016,12/16/2015,04/30/2014,03/22,03/17/2011,01/14/2010,02/25/2009 ,04/18/2008 TD, Preservative Free 06/29/2022 TDAP (age 10 [...] Date Recorded PHQ Adult Total Score 0 07/08/2020 Hunger Vital Sign Answer Date Recorded Worried [...] this encounter Progress Notes * Taty Marte, [facility] - 12/19/2023 7:35 AM EDT Images from the original note were not included. Medication Therapy Disease Management - Anticoagulation Patient: Macario Oliver | : 1935 Subjective Patient-Reported Symptoms: Patient Findings Positives: Signs/symptoms of bleeding (bleeding easily on his arms- recommended he use lotion to keep his skin moisturized) Negatives: Signs/symptoms of thrombosis, Change in health, Change in alcohol use, Change in activity, Upcoming invasive procedure, Missed doses, Extra doses, Change in medications, Change in diet/appetite, Bruising Objective Current Warfarin Dose As of 12/19/2023 Warfarin maintenance plan: 7.5 mg (5 mg x 1.5) every Mon, Fri; 5 mg (5 mg x 1) all other days INR Result As of 12/19/2023 INR goal: 2.0-3.0 INR used for dosin.8 (12/19/2023) Assessment & Plan Warfarin Plan As of 12/19/2023 Full warfarin instructions: 12/18: Hold; Otherwise 5 mg every day Next INR check: 01/19/2024 Repeat PT/INR in 4 week(s) Weekly dose: decreased Additional Dosing Information: I spent a total of 10-19 minutes (exact time 10 mins) on the date of service in preparation, delivery, and documentation of the care provided to Macario Oliver excluding any time spent in the performance of separately billed services or time spent by another provider/QHP. Taty Marte [facility] Clinical Pharmacist 12/19/2023, 7:35 AM documented in this encounter Plan of Treatment Upcoming Encounters Date Type Department Care Team (Late st Contact Info) Description 12/28/2023 11:00 AM EDT Office Visit [place] [address] [place] [phone] Heron Hutchinson MD [address] [place] [address] 01/19/2024 1:40 PM EDT Anticoagulation Pharmacy, [place] [address] [place] [address] [facility] [address] [place] [address] 03/19/2024 3:30 PM EST Office Visit Cardiology, [facility] [address] [facility] [place] [address] Tahira Jones PA-C [address] [place] [address] [place] [address] 09/17/2024 10:15 AM EDT Office Visit Urology, [facility] [address] [facility] [place] [address] Zeus Davidson MD [address] [place] [id number] Health Maintenance Due Date Last Done Comments Adult Wellness Visit 06/01/2003 Zoster Vaccines (2 of 2) 12/12/2017 10/17/2017, 09/26 Depression Screening 07/08/2021 07/08/2020 Albumin/Creatinine Ratio 12/21/2022 022, 10/11/2019, 05/22/2018 COVID-19 Vaccine ( season) 2023 04/17/2022, 02/06/2021, 05/29/2020, Additional history exists Influenza Vaccine (FLU shot) (#1) 2023 02/18/2023, 12/07/2022, 12/28/2021, Additional history exists CKD PHOS USE SMARTSET 36193 12/30/202307/2022, 12/21/2021, 09/12/2018, Additional history exists CKD HGB USE SMARTSET 20369 12/14/202412/14, 12/15/2023, 12/29/2022, Additional history exists HbA1c 12/14/2024 12/15/2023, 07/2022, 06/29/2022, Additional history exists DTap/Tdap Vaccines (3 - Td or Tdap) 06/29/2032 06/29/2022, 09/20/2012, 12/30/2002 Pneumococcal Vaccine: 65+ Years Completed 08/28/2014, 09/20/2011, 01/09/2002 HPV (Gardasil) Vaccine Aged Out No lo nger eligible based on patient's age to complete this topic Hepatitis B Vaccine Aged Out No longe r eligible based on patient's age to complete this topic MENINGOCOCCAL (MENACTRA/MENVEO) Aged Out No longer eligible based on patient's age to complete this topic documented as of this encounter Medical Devices Implanted Type Area Wood Engraver Device Identifier Shelf Expiration Date Model / Serial / Lot Baseplate #6 Tritanium - [id number] Implanted:Qty: 1 on 10/22/2019 by Sammy Higgins DO at OR [facility] Left: Knee LISSET : ORTHOPAEDICS 07/23/2024 5536-B-600 / / [id number] Knee Triathlon Bead No Cuong L 6 - [id number] Implanted:Qty: 1 on 10/22/2019 by Sammy Higgins DO at OR [facility] Left: Knee LISSET : ORTHOPAEDICS 07/09/2024 5517-F-601 / / [id number] Patella Symmetric S33mm 9mm - [id number] Implanted:Qty: 1 on 10/22/2019 by Sammy Higgins, at OR [facility] Left: Knee LISSET : ORTHOPAEDICS 10/29/2023 5556-L-339 / / [id number] Triathlon X3 Tibial Bearing Insert Cs Ramirez 6 Typ Cs Thkns 10mm Implanted:Qty: 1 on 10/22/2019 by Sammy Higgins, DO at OR [facility] Left: Knee 01/07/2024 5531-G-610 -E / / [id number] documented as of this encounter Procedures Procedure Name Priority Date/Time Associated Diagnosis Comments INR FINGERSTICK, POINT OF CARE STAT 12/19/2023 7:38 AM EDT Chronic atrial fibrillation (HCC) S/P TAVR (transcatheter aortic valve replacement) Anticoagulation management encounter documented in this encounter Results * INR FINGERSTICK, POINT OF CARE (12/19/2023 7:38 AM EDT) Fingerstick INR 3.8 INR 7:43 AM EDT [facility] Blood 12/19/2023 7:38 AM EDT 12/19/2023 7:43 AM EDT Narrative [facility]- - 12/19/2023 7:43 AM EDT Therapeutic ranges for non-operative patients: Prophylaxsis/treatment of DVT: (Range:2.0-3.0) Treatment of pulmonary embolism:(Range:2.0-3.0) Prevention of systemic embolism from: -tissue heart valves -acute myocardial infarction -valvular heart disease -atrial fibrillation (Range: 2.0-3.0) Mechanical prosthetic valves: (Range: 2.5-3.5) Taty Marte [facility] POINT OF CARE TEST DOCKED DEVICE UNSOLICITED RESULTS [facility] [address] [place] [address] documented in this encounter Visit Diagnoses Diagnosis Anticoagulation management encounter- Primary Encounter for therapeutic drug monitoring Chronic atrial fibrillation (HCC) Atrial fibrillation S/P TAVR (transcatheter aortic valve replacement) Heart valve replaced by other means documented in this encounter Advance Directives Documents on File Type Date Recorded Patient Transactional Attorney Expl anation Advance Directives and Livin g Will 05/25/2017 LIVING WILL Power of Processing Analyst 05/25/2017 POWER OF A TTORNEY * Full [...] and were consensually agreed upon. Care Teams Lottery Manager Relationship Specialty Start Date End Date Heron Hutchinson MD [address] [place] [id number] PCP - General 03/28/1997 documented as of this encounter"
--- OUTSIDE RECORDS SUMMARY | 2024-01-26 18:50 | External Medical Summary | Summary of Care ---
Author Name Unknown Organization [facility] Address [address] [facility] [place] [address] Phone [phone] Care Team Providers Care Computer Systems Security Analyst Name Role Phone Heron Hutchinson MD Primary Care Provider [phone] Reason for Visit * Reason Onset Date Comments Test Results 12/18/2023 Encounter Details Date Type Department Care Team (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 current use of 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 Overview: ICD-10 update of inactive term documented as of this encounter (statuses as of 12/27/2023) Resolved Problems Problem Noted Date Diagnosed Date Resolved Date Prediabetes 06/01/2020 11/10/2020 Overview: Per Prediabetes protocol Idioventricular rhythm 11/13/201811/15 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 CONTACT: Ziyad Neely, Asset Card Clerk Chronic rhinitis 01/18/2010 08/15/2014 Elevated prostate specific antigen (PSA) 01/16/2002 03/26/2018 Benign prostatic hyperplasia 01/09/2002 03/26/2018 Overview: ICD-10 update of inactive term ICD-10 update of inactive term Anticoagulation management encounter 10/12/2001 03/26/2018 Open wound of forearm 09/01/20002017 Atrial fibrillation 09/25/1995 03/26/20 18 Dyslipidemia, goal to be determined 03/01/2013 documented as of this encounter (statuses as of 12/27/2023) Immunizations Name Administration Dates Next Due COVID-19 [...] 0.5 mL (Fluzone) 12/17/2016,12/16/2015,04/30/2014,03/22,03/17/2011,01/14/2010,02/25/2009 ,04/18/2008 Seasonal Influenza, MDCK, Tr ivalent, PF, (Flucelvax) [...] Telephone Encounter - Vanessa Bro LPN - 12/18/2023 10:12 AM EDT Patients , ilir calling. Given message. Verbalized understanding. No bleeding in the urine or stool. Has noticed he is pale sometimes. Is not having symptomatic concerns with his breathing. They did not get an appt. With cardiology. Transferred to [facility] in cardiology scheduling. Will have INR checked. 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 * Telephone Encounter - Aric Benson PA-C - 12/18/2023 9:43 AM EDT Please notify patient that recent labs show: - Iron deficiency anemia. Any sign of blood in stool or urine? Orders placed for UA and stool hemoccult, stop into [facility] lab. Start iron supplement, Rx sent. May take stool softener and/or Miralax if needed for constipation s/e. F/U with PCP. Check INR tomorrow as scheduled. - Elevated BNP. Low threshold to add diuretic such as Lasix for continued leg swelling or SOB --- is patient having symptomatic concerns at this time? Pharmacy Selected: [facility] [address] [place] Medication Orders Placed This Encounter Medications Vitron-C 65-125 MG Oral Tablet (Iron-Vitamin C 65-125 mg per tab) Sig: Take 1 Tablet by mouth in the morning. Dispense: 30 Tablet Refill: 1 FYI to PCP & Cardiology for continued f/u. documented in this encounter Plan of Treatment Upcoming Encounters Date Type Department Care Team (Late st Contact Info) Description 12/28/2023 11:00 AM EDT Office Visit [place] [address] [place] [address] Heron Hutchinson MD [address] [place] [address] 01/19/2024 1:40 PM EDT Anticoagulation Pharmacy, [place] [address] [place] [address] [facility] [address] [place] [address] 01/26/2024 11:00 AM EDT Office Visit Cardiology, [facility] [address] [facility] [place] [address] Diego George MD [address] [facility] [place] [address] 03/19/2024 3:30 PM EST Office Visit Cardiology, [facility] [address] [facility] [place] [address] Taihra Jones PA-C [address] [place] [address] [place] [address] 09/17/2024 10:15 AM EDT Office Visit Urology, [facility] [address] [place] [address] Zeus Davidson MD [address] [place] [address] Scheduled Orders Name Type Priority Associated Diagnoses Orde r Schedule URINALYSIS, REFLEX TO MICROSCOPIC Lab Routine Iron deficiency anemia, unspecified iron deficiency anemia type Expected: 12/18/2023, Expires: 12/17/2024 FECAL OCCULT BLOOD, EIA Lab Routine Iron deficiency anemia, unspecified iron deficiency anemia type Expected: 12/18/2023 (Approximate), Expires: 12/17/2024 Health Maintenance Due Date Last Done Comments Adult Wellness Visit 06/01/2003 Zoster Vaccines (2 of 2) 12/12/2017 10/17/2017, 09/26 Depression Screening 07/08/2021 07/08/2020 Albumin/Creatinine Ratio 12/21/2022 022, 10/11/2019, 05/22/2018 COVID-19 Vaccine ( season) 2023 04/17/2022, 02/06/2021, 05/29/2020, Additional history exists Influenza Vaccine (FLU shot) (#1) 2023 02/18/2023, 12/07/2022, 12/28/2021, Additional history exists CKD PHOS USE SMARTSET 44464 12/30/202307/2022, 12/21/2021, 09/12/2018, Additional history exists CKD HGB USE SMARTSET 92156 12/14/202412/14, 12/15/2023, 12/29/2022, Additional history exists HbA1c [...] this encounter Medical Devices Implanted Type Area Homogenizer Operator Device Identifier Shelf Expiration Date Model / Serial / Lot Baseplate #6 Tritanium - [id number] Implanted:Qty: 1 on 10/22/2019 by Sammy Higgins, DO at OR [facility] Left: Knee LISSET : ORTHOPAEDICS 07/23/2024 5536-B-600 / / [id number] Knee Triathlon Bead No Cuong L 6 - [id number] Implanted:Qty: 1 on 10/22/2019 by Sammy Higgins, DO at OR [facility] Left: Knee LISSET : ORTHOPAEDICS 07/09/2024 5517-F-601 / / [id number] Patella Symmetric S33mm 9mm - [id number] Implanted:Qty: 1 on 10/22/2019 by Sammy Higgins, at OR [facility] Left: Knee LISSET : ORTHOPAEDICS 10/29/2023 5556-L-339 / / [id number] Triathlon X3 Tibial Bearing Insert Cs Ramirez 6 Typ Cs Thkns 10mm Implanted:Qty: 1 on 10/22/2019 by Sammy Higgins, at OR [facility] Left: Knee 01/07/2024 5531-G-610 -E / / [id number] documented as of this encounter Visit Diagnoses Diagnosis Iron deficiency anemia, unspecified iron deficiency anemia type- Primary documented in this encounter Advance Directives Documents on File Type Date Recorded Patient Formula Weigher Expl anation Advance Directives and Livin g Will 05/25/2017 LIVING WILL Power of Battery Stacker 05/25/2017 POWER OF A TTORNEY * Full [...] and were consensually agreed upon. Care Teams Computer Systems Security Analyst Relationship Specialty Start Date End Date Heron Hutchinson MD [address] [place] [address] PCP - General 03/28/1997 documented as of this encounter
--- OUTSIDE RECORDS SUMMARY | 2024-01-26 18:50 | External Medical Summary | Summary of Care ---
Author Name Unknown Organization [facility] Address [address] [facility] [place] [address] Phone [phone] Care Team Providers Care Taker Away Name Role Phone Heron Hutchinson MD Primary Care Provider Reason for Visit * Reason Onset Date Comments Appointment 12/28/2023 Encounter Details Date Type Department Care Team (Late st Contact Info) Description 12/28/2023 Telephone [facility] [address] [place] [address] Heron Hutchinson MD [address] [place] [address] Appointment Allergies No known active allergiesdocumented as of this encounter (statuses as of 01/04/2024) Medications Medication Sig Dispensed Refills Start Date [...] as of this encounter (statuses as of 01/04/2024) Active Problems Problem Noted Date Diagnosed Date [...] 3 04/01/2019 Atherosclerotic heart diseas e of [place] coronary artery without angina [...] Plus 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 Overview: ICD-10 update of inactive term documented as of this encounter (statuses as of 01/04/2024) Resolved Problems Problem Noted Date Diagnosed Date Resolved Date Prediabetes 06/01/2020 11/10/2020 Overview: Per Prediabetes protocol Idioventricular rhythm 11/13/201811/15 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 CONTACT: Ziyad Neely, Corporate Licensed Broker Chronic rhinitis 01/18/2010 08/15/2014 Elevated prostate specific antigen (PSA) 01/16/2002 03/26/2018 Benign prostatic hyperplasia 01/09/2002 03/26/2018 Overview: ICD-10 update of inactive term ICD-10 update of inactive term Anticoagulation management encounter 10/12/2001 03/26/2018 Open wound of forearm 09/01/20002017 Atrial fibrillation 09/25/1995 03/26/20 18 Dyslipidemia, goal to be determined 03/01/2013 documented as of this encounter (statuses as of 01/04/2024) Immunizations Name Administration Dates Next Due COVID-19 [...] AM * Telephone Encounter - Raulito Arechiga CEE Christianson - 12/28/2023 12:44 PM EDT Per Provider- Patient needs Upper and lower endoscopy within 10 days. Please assist with schedulingASAP documented in this encounter Plan of Treatment Upcoming Encounters Date Type Department Care Team (Late st Contact Info) Description 01/12/2024 7:40 AM EDT Anticoagulation Pharmacy, [place] [address] [place] [address] [facility] [address] [place] [address] 01/26/2024 11:00 AM EDT Office Visit Cardiology, [facility] [address] [place] [address] Diego George MD [address] [place] [address] 03/19/2024 3:30 PM EST Office Visit Cardiology, [facility] [address] [place] [address] Tahira Jones PA-C [address] [facility] [place] [address] 09/17/2024 10:15 AM EDT Office Visit Urology, [facility] [address] [place] [address] Zeus Davidson MD [address] [place] [address] Health Maintenance Due Date Last Done Comments Adult Wellness Visit 06/01/2003 Albumin/Creatinine Ratio 12/21/2022 022, 10/11/2019, 05/22/2018 COVID-19 Vaccine ( season) 2023 04/17/2022, 02/06/2021, 05/29/2020, Additional history exists CKD PHOS USE SMARTSET 56549 12/30/202307/2022, 12/21/2021, 09/12/2018, Additional history exists HbA1c 12/14/2024 12/15/2023, 07/2022, 06/29/2022, Additional history exists CKD HGB USE SMARTSET 55766 12/27/202412/27, 12/28/2023, 12/15/2023, Additional history exists Depression [...] this encounter Medical Devices Implanted Type Area Mail Censor Device Identifier Shelf Expiration Date Model / Serial / Lot Baseplate #6 Tritanium - [id number] Implanted:Qty: 1 on 10/22/2019 by Sammy Higgins DO at OR [facility] Left: Knee LISSET : ORTHOPAEDICS 07/23/2024 5536-B-600 / / [id number] Knee Triathlon Bead No Cuong L 6 - [id number] Implanted:Qty: 1 on 10/22/2019 by Sammy Higgins DO at OR [facility] Left: Knee LISSET : ORTHOPAEDICS 07/09/2024 5517-F-601 / / [id number] Patella Symmetric S33mm 9mm - [id number] Implanted:Qty: 1 on 10/22/2019 by Sammy Higgins, DO at OR [facility] Left: Knee LISSET : ORTHOPAEDICS 10/29/2023 5556-L-339 / / [id number] Triathlon X3 Tibial Bearing Insert Cs Ramirez 6 Typ Cs Thkns 10mm Implanted:Qty: 1 on 10/22/2019 by Sammy Higgins, DO at OR [facility] Left: Knee 01/07/2024 5531-G-610 -E / / [id number] documented as of this encounter Advance Directives Documents on File Type Date Recorded Patient Inshore Undersea Warfare Officer Expl anation Advance Directives and Livin g Will 05/25/2017 LIVING WILL Power of Furnace And Wash Equipment Operator 05/25/2017 POWER OF A TTORNEY * [...] and were consensually agreed upon. Care Teams Taker Away Relationship Specialty Start Date End Date Heron Hutchinson MD [address] [place] [address] PCP - General 03/28/1997 documented as of this encounter
--- OUTSIDE RECORDS SUMMARY | 2024-01-26 18:50 | External Medical Summary | Summary of Care ---
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); Risk and functional assessment; Anemia, unspecified type Allergies No known active allergiesdocumented as of this encounter (statuses as of 12/17/2023) Medications Medication Sig Dispensed Refills Start Date [...] TWICE DAILY 180 Tablet 3 06/27/2023 Active documented as of this encounter (statuses as of 12/17/2023) Active Problems Problem Noted Date Diagnosed Date [...] 3 04/01/2019 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 04/01/2019 Secondary [...] 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 Overview: ICD-10 update of inactive term documented as of this encounter (statuses as of 12/17/2023) Resolved Problems Problem Noted Date Diagnosed Date Resolved Date Prediabetes 06/01/2020 11/10/2020 Overview: Per Prediabetes protocol Idioventricular rhythm 11/13/201811/15 Hypertensive kidney disease with chronic kidney disease stage III 09/24/2018 02/06/2020 Overview: Per CKD protocol Kidney disease, chronic, sta ge III (GFR 30-59 ml/min) 09/05/2017 10/04/2018 Overview: Per CKD protocol #1 Atrial fibrillation 09/01/2015 03/26/20 18 Viral URI with cough 08/15/2014 018 [employer] Other*[id number] 07/12/2010 07/12/2013 Overview: PROJECT: #[id number], SPONSOR: Owen, PI: Ezio Johnson MD SUMMARY: [...] encounter can be closed. CONTACT: Ziyad Neely, Hood Fitter Chronic rhinitis 01/18/2010 08/15/2014 Elevated prostate specific antigen (PSA) 01/16/2002 03/26/2018 Benign prostatic hyperplasia 01/09/2002 03/26/2018 Overview: ICD-10 update of inactive term ICD-10 update of inactive term Anticoagulation management encounter 10/12/2001 03/26/2018 Open wound of forearm 09/01/20002017 Atrial fibrillation 09/25/1995 03/26/20 18 Dyslipidemia, goal to be determined 03/01/2013 documented as of this encounter (statuses as of 12/17/2023) Immunizations Name Administration Dates Next Due COVID-19 [...] Trivalen t, (IIV3), with Preserv, (Fluzone) 12/17/2016,12/16/2015,04/30/2014,03/22,03/17/2011,01/14/2010,02/25/2009 ,04/18/2008,01/13/2005,02/25/2003,12/25,03/08/2001,03/07/2000 TD - Tetanus/Diptheria (ADULT) 12/30/2002 TD, Preservative [...] Sign Reading Time Taken Comments Blood Pressure 142/80 12/15/2023 1:02 PM EDT Pulse 65 12/15/2023 1:02 PM EDT Temperature 36.7 C (98.1 F) 12/15/2023 1:02 PM ED T Respiratory Rate 12 12/15/2023 1:02 PM EDT Oxygen Saturation 93% 12/15/2023 1:02 PM EDT Inhaled Oxygen Concentration - - Weight 88 kg (194 lb) 12/15/2023 1:02 PM EDT Height 165.1 cm (5' 5") 12/15/2023 1:02 PM EDT Body Mass Index 32.28 12/15/2023 1:02 PM EDT documented in this encounter Functional [...] this encounter Patient Instructions * Patient Instructions* Lita Man LPN - 12/15/2023 1:02 PM EDT Patient Instructions - Fall Prevention (This education is for all patients over 65 regardless of symptoms) Remember to take your current medications as prescribed. In order to prevent falls, you are encouraged to: Exercise Utilize assistive/adaptive devices Avoid multifocal lenses when walking Avoid hazards in home Maintain a regular toileting schedule Any questions please contact our office. Preventing Falls in the Home (This education is for all patients over 65 regardless of symptoms) As you get older, falls are more likely. Thats because your reaction time slows. Your muscles and joints may also get stiffer, making them less flexible. Illness, medications, and vision changes can also affect your balance. A fall could leave you unable to live on your own. To make your home safer, follow these tips: Floors Put nonskid pads under area rugs Remove throw rugs Replace worn floor coverings Tack carpets firmly to each step on carpeted stairs. Put nonskid strips on the edges of uncarpeted stairs Keep floors and stairs free of clutter and cords Arrange furniture so there are clear pathways Clean up any spills right away Bathrooms Install grab bars in the tub or shower Apply nonskid strips or put a nonskid rubber mat in the tub or shower Sit on a bath chair to bathe Use bathmats with nonskid backing Lighting Keep a flashlight in each room Put a nightlight along the pathway between the bedroom and the bathroom Nadia Patient Education Copyright 2008 - 2010 Nadia except where otherwise noted Preventing Falls: Exercises to Improve Balance, Flexibility, Strength, and Staying Power (This education is for all patients over 65 regardless of symptoms) Certain types of exercises may help make you less likely to fall. Try the ones below. Or do other exercises that your healthcare provider suggests. Depending on your health, you may need to start slowly. Dont let that stop you. Even small amounts of exercise can help you. Be sure to talk to yourhealthcare provider before starting any exercise program. Improve Balance Many types of exercise can help improve balance. Ish chi and yoga are good examples. Heres another one to try. You can do it anytime and almost anywhere. Stand next to a counter or solid support. Push yourself up onto your tiptoes. Hold for 5 seconds. If you start to lose your balance, hold on to the counter. Rest and repeat 5 times. Work up to holding for 20 to 30 seconds, if you can. Increase Flexibility Being more flexible makes it easier for you to move around safely. Try exercises like the seated hamstring stretch. Sit in a chair and put one foot on a stool. Straighten your leg and reach with both hands down either side of your leg. Reach as far down your leg as you can. Hold for about 20 seconds. Go back to the starting position. Then repeat 5 times. Switch legs. Build Strength Resistance exercises help build strength. You can do them without equipment. Or you can use weights, elastic bands, or special machines. One such exercise is called the biceps curl. You can hold a 1 pound weight or even a can of soup. Do this exercise at least 3 times a week. Strive for everyday. Sit up straight in a chair. Keep your elbow close to your body and your wrist straight. Bend your arm, moving your hand up to your shoulder. Then slowly lower your arm. Repeat 5 times. Switch to the other arm. Build Your Staying Power Aerobic exercises make your heart and lungs stronger so you can keep moving longer. Walking and swimming are two of the best types of exercises you can do. Using a stationary bike is great, too. Find an aerobic exercise that you enjoy. Start slowly and build up. Even 5 minutes is helpful. Aimfor a goal of 30 minutes, at least 3 times a week. You dont have to do 30 minutes in one session. Break it up and walk a little throughout the day. More Helpful Tips Start easy. Slowly work up to doing more. Talk with your healthcare provider about the best exercises for you. Call senior centers or health clubs about exercise programs. If needed, have a family member watch you walk every so often to check your stability. Exercise with a friend. Choose an activity you both enjoy. Try exercises that you can do anytime, anywhere. Here are two examples. Have someone with you when you first try these: Practice walking by placing one foot right in front of the other. Stand up and sit down 10 times. Repeat this throughout the day. Nadia Patient Education Copyright 2009 - 2010 Nadia except where otherwise noted. Preventing Falls: Moving Safely Using a Cane or Walker (This education is for all patients over 65 regardless of symptoms) Keep the cane away from your feet so you dont trip. A walking aid, such as a cane or walker, can help you stay more independent and avoid falls. Remember to keep your walking aid within easy reach when youre in a chair or in bed. And learn how to use it safely so you dont injure yourself. Using a Cane If you have a stronger side, hold the cane on that side. Get your balance. Move the cane and your weaker leg forward. Support your weight on both the cane and your weaker side. Step with your stronger leg. Start again from step 1. If youre using a folding walker, be sure you know how to lock it open. Check that its locked open before each use. Using a Walker Roll the walker (or lift it, if youre using one without wheels) forward about 12 inches. Step forward with your weaker leg first. Use the walker to help keep your balance. Bring your other foot forward to the center of the walker. Start again from step 1. Helpful Tips Check with your healthcare provider about the right walking aid to use. Ask about a walker with a seat attached. Check the tips of your cane or walker to make sure they have nonskid covers. Move slowly from room to room. Dont chen. Sit down to get dressed. Use a amilcar pack or backpack to keep your hands free. Get help for jobs that mean climbing, even on a stepstool. [employer]top Patient Education Copyright 2008 - 2010 [employer] except where otherwise noted. Treating Urinary Incontinence in Men (This education is for all patients over 65 regardless of symptoms) You can't always control the release of urine. You may leak urine. Or you may not be able to hold your urine until you can get to a bathroom. This is called urinary incontinence. The problem can be managed. Talk to your doctor about your treatment options. Taking Medications Prescription medications may help you. They may: Help the sphincter to work better. (This is the muscle that closes to keep urine from leaking out of the bladder.) Help stop the bladder from juan pablo too often to push urine out. Help the bladder muscles contract with more force. Help relax the sphincter muscle and allow urine to flow more freely. Making Changes to Your Routine Certain changes in your daily routine may help. These include: Avoiding caffeine and alcohol. Using timed voiding. This is following a schedule for drinking fluids and urinating. Doing Kegel exercises daily. These exercises involve tightening the muscles in your sphincter and around your bladder to help strengthen them. Your doctor can explain how to do them. Using a Catheter A catheter is a narrow tube that is inserted through the urethra into the bladder. It drains urine.A condom catheter covers the penis. It channels urine into a collection bag. It is worn most of thetime. Intermittent catheterization means inserting a catheter to drain the bladder, then removing it. This is done on a regular schedule. Having Surgery If other options don't work, surgery may be recommended. If surgery is an option, your healthcare provider can discuss it with you and explain its risks and benefits. Healing After Prostate Surgery Surgery on the prostate gland can cause incontinence. Most often, the incontinence is only for a short time. It clears up when healing is complete. Very rarely, prostate surgery can result in permanent incontinence. documented in this encounter Progress Notes * Arron Quintero PA-C - 12/15/2023 1:07 PM EDT Images from the original note were not included. History of Present Illness Macario Oilver is a 88 year old male that presents for Chest Discomfort Had an episode 4 days ago of "like I was pumped up in my chest", "I couldn't burp", felt like "I was full of gas". Started around 10PM, lasted until 6AM the next morning. Then "went away", has not recurred since. Admits did feel nauseated "like I had too much to eat". No vomiting. Had eaten apple, 1 piece of chocolate cake, 1 piece of apple pie prior to dinner. Then ate supper - beef cubes, carrots, mason beans. Ate later than normal. This all occurred while away from home camping. He was not going to seek care, but overhead him talking to a friend the next day and describing this as "chest pain", so she made him this visit today. He admits trying to downplay the symptoms to , had not revealed his snacking habit prior to dinner time that day. He denies recurrence of symptoms since Monday night/Monday AM. He is doing all his normal activities without new limitations. Admits to chronic SOB, denies acute worsening. Leg swelling no worse than usual. Does not like to take HCTZ as prescribed, but admits does help swelling if he takes. No use of compression stockings - encouraged. No fever or cough. No change in voiding. CEE, reports compliant with CPAP. Cardiac history reviewed, overdue for Cardiology f/u. INR managed by [facility], compliant with Coumadin for A.fib. PMH prostate CA. Medications: Isosorbide Dinitrate 20 MG Oral Tablet (Isordil) Metoprolol Succinate ER 25 MG Oral Tablet Extended Release 24 Hour (toPROL XL) Atorvastatin Calcium 20 MG Oral Tablet (Lipitor) Warfarin Sodium 5 MG Oral Tablet (Coumadin) amLODIPine Besylate 2.5 MG Oral Tablet (Norvasc) hydroCHLOROthiazide 25 MG Oral Tablet (Hydrodiuril) aspirin 81 MG chewable tablet Cholecalciferol (VITAMIN D3) 1000 units CAPS Physical Exam Vitals: 12/15/23 1302 Temp: 36.7 C (98.1 F) Pulse: 65 Resp: 12 SpO2: 93% BP: 142/80 BMI: 32.28 Wt Readings from Last 3 Encounters: 12/15/23 88 kg (194 lb) 04/18/23 94.3 kg (208 lb) 12/29/22 93.9 kg (207 lb) Physical Exam Vitals and nursing note reviewed. Constitutional: Comments: Pale HENT: Head: Normocephalic and atraumatic. Cardiovascular: Rate and Rhythm: Normal rate. Rhythm irregular. Pulmonary: Effort: Pulmonary effort is normal. Breath sounds: No wheezing, rhonchi or rales. Comments: Mildly diminished breath sounds throughout. Abdominal: General: Bowel sounds are normal. Palpations: Abdomen is soft. Tenderness: There is no abdominal tenderness. There is no guarding. Musculoskeletal: Comments: 1+ pitting edema b/L LEs. Neurological: Mental Status: He is alert and oriented to person, place, and time. 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 | For: Labs Today | Check-out note: Schedule f/u with Cardiology,overdue. Needs seen within the next month. Dr. George if available. With PCP Dr. Hutchinson next month as scheduled. Time: I spent a total of 30-39 minutes (exact time 30 mins) on the date of service in preparation, delivery, and documentation of the care provided to Macario Oliver excluding any time spent in the performance of separately billed services. documented in this encounter Nursing Notes * Lita Man LPN - 12/15/2023 12:56 PM EDT The patient has been properly identified by confirmation of name and date of . Chief Complaint Patient presents with Chest Discomfort Patient c/o of chest pain yesterday while out camping. Occurred at night [place]. States he felt "full in his chest" denies jaw or arm pain. Has some stomach pain. Patient has an extensive cardiac history. documented in this encounter Miscellaneous Notes * Addendum Note - Arron Quintero PA-C - 12/17/2023 4:46 PM EDTAddended by: ARRON QUINTERO on: 12/17/2023 04:46 PM Modules accepted: Orders documented in this encounter Plan of Treatment Upcoming Encounters Date Type Department Care Team (Late st Contact Info) Description 12/19/2023 7:30 AM EDT [facility], [place] [address] [facility] [address] [facility] [address] [facility] [address] 01/19/2024 2:00 PM EDT Office Visit [place] [address] [facility] [phone] Heron Hutchinson MD [address] [facility] [place] [address] 09/17/2024 10:15 AM EDT Office Visit Urology, [facility] [address] [place] [address] Zeus Davidson MD [address] [place] [address] Scheduled Orders Name Type Priority Associated Diagnoses Orde r Schedule FERRITIN Lab Routine Anemia, unspecified type Ordered: 12/17/2023 IRON SCREEN, INCLUDING TIBC Lab Routine Anemia, unspecified type Ordered: 12/17/2023 VITAMIN B12 Lab Routine Anemia, unspecified type Ordered: 12/17/2023 FOLIC ACID Lab Routine Anemia, unspecified type Ordered: 12/17/2023 Health Maintenance Due Date Last Done Comments Adult Wellness Visit 06/01/2003 Zoster Vaccines (2 of 2) 12/12/2017 10/17/2017, 09/26 Depression Screening 07/08/2021 07/08/2020 Albumin/Creatinine Ratio 12/21/2022 022, 10/11/2019, 05/22/2018 COVID-19 Vaccine ( season) 2023 04/17/2022, 02/06/2021, 05/29/2020, Additional history exists Influenza Vaccine (FLU shot) (#1) 2023 02/18/2023, 12/07/2022, 12/28/2021, Additional history exists CKD PHOS USE SMARTSET 01039 12/30/20230 07/2022, 12/21/2021, 09/12/2018, Additional history exists CKD HGB USE SMARTSET 42167 12/14/202412/14, 12/15/2023, 12/29/2022, Additional history exists HbA1c [...] this encounter Medical Devices Implanted Type Area 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 Arts Supervisor Device Identifier Shelf Expiration Date Model / Serial / Lot Baseplate #6 Tritanium - [id number] Implanted:Qty: 1 on 10/22/2019 by Sammy Higgins DO at OR [facility] Left: Knee LISSET : OR[employer] 07/23/2024 [id number] / / [id number] Knee Triathlon Bead No Cuong L 6 - [id number] Implanted:Qty: 1 on 10/22/2019 by Sammy Higgins DO at OR [facility] Left: Knee LISSET : ORTHOPA[employer]ICS 07/09/2024 [id number] / / [id number] Patella Symmetric S33mm 9mm - [id number] Implanted:Qty: 1 on 10/22/2019 by Sammy Higgins DO at OR [facility] Left: Knee LISSET : ORTHOPA[employer] 10/29/2023 [id number]-[id number] / / [id number] Triathlon X3 Tibial Bearing Insert Cs Ramirez 6 Typ Cs Thkns 10mm Implanted:Qty: 1 on 10/22/2019 by Sammy Higgins DO at OR [facility] Left: Knee 01/07/2024 [id number]-G-[id number] -[id number] / / [id number] documented as of this encounter Results * TSH WITH FREE T4 IF INDICATED (12/15/2023 2:23 PM EDT) TSH 1.71 0.27 - 4.20 uIU/mL 12/15/2023 11:21 PM EDT [place] [facility] [place] Venous blood specimen / Unknown Venipuncture / Unknown 12/15/2023 2:23 PM EDT 12/15/2023 2:23 PM EDT Corbett L MacNamara PA-C LAB BLOOD ORDERAB LES [facility] [place] [address] [place] [address] * (ABNORMAL) BNP, NT-PRO (12/15/2023 2:23 PM EDT) [facility] BNP, NT-Pro 1,548(H) <300 pg/mL 12/15/2023 11:21 PM EDT [facility] [facility] [place] Venous blood specimen / Unknown Venipuncture / Unknown 12/15/2023 2:23 PM EDT 12/15/2023 2:23 PM EDT Narrative [place] [facility] [place] 12/15/2023 11:21 PM EDT Exclude Heart Failure: <300 pg/mL Diagnose Heart Failure: Age <50 yr: >450 pg/mL 50-75 yr: >900 pg/mL >75 yr: >1800 pg/mL GFR is 30-59 mL/min: >1200 pg/mL or Age-adjusted values GFR <30 mL/min: do not use, not reliable Prognostic threshold: 1000 pg/mL Arron JOSE-C LAB BLOOD ORDERAB LES Performing Organization Address City/[facility]/ZIP Co de Phone Number [place] [facility] [place] [address] [place] [address] * LIPASE (12/15/2023 2:23 PM EDT) [facility] Lipase 57 13 - 60 U/L 12/15/2023 10:51 PM EDT [facility] [place] Venous blood specimen / Unknown Venipuncture / Unknown 12/15/2023 2:23 PM EDT 12/15/2023 2:23 PM EDT Arron JOSE-C LAB BLOOD ORDERAB LES [facility] [place] [address] [place] [address] * HEMOGLOBIN A1C (12/15/2023 2:23 PM EDT) [facility] Hemoglobin A1C 5.6 4.0 - 5.6 % 12/15/2023 10:13 PM EDT [facility] [place] Comment:The use of HbA1c to monitor glycemic status is based on normal hemoglobin and HbA composition. This test should not be used in patients with abnormal hemoglobin that affects the half life of the red blood cell or the in vivo glycation rates. Estimated Average Glucose 114 <126 mg/dL 12/15/2023 10:13 PM EDT [facility] [place] Blood Venous blood specimen / Unknown Venipuncture / Unknown 12/15/2023 2:23 PM EDT 12/15/2023 2:23 PM EDT Arron Quintero PA-C LAB BLOOD ORDERAB LES [facility] [place] [address] [place] [address] * (ABNORMAL) COMPREHENSIVE METABOLIC PANEL (12/15/2023 2:23 PM EDT) BUN 29(H) 6 - 20 mg/dL 12/15/2023 10:51 PM EDT LABORATORY C CREATININE 1.2 0.6 - 1.2 mg/dL 12/15/2023 10:51 PM EDT [facility] [place] EGFR 58(L) >=60 mL/min 12/15/2023 10:51 PM EDT [facility] [place] Comment:eGFR is calculated b ased on the CKD-EPI 2020 equation. SODIUM 140 135 - 146 mmol/L 12/15/2023 10:51 PM EDT LABORATORY C POTASSIUM 4.4 3.5 - 5.1 mmol/L 12/15/2023 10:51 PM EDT LABORATORY C CHLORIDE 104 98 - 107 mmol/L 12/15/2023 10:51 PM EDT LABORATORY C CO2 25 22 - 32 mmol/L 12/15/2023 10:51 PM EDT LABORATORY C ANION GAP 11 7 - 15 mmol/L 12/15/2023 10:51 PM EDT LABORATORY C GLUCOSE 92 70 - 120 mg/dL 12/15/2023 10:51 PM EDT LABORATORY C Albumin 4.4 3.8 - 5.0 g/dL 12/15/2023 10:51 PM EDT LABORATORY [facility] AST 36 10 - 50 U/L 12/15/2023 10:51 PM EDT LABORATORY [facility] Alkaline Phosphatase 77 35 - 130 U/L 12/15/2023 10:51 PM EDT LAB[facility]ATORY [facility] Bilirubin, Total 0.6 <=1.2 mg/dL 12/15/2023 10:51 PM EDT LAB[facility]ATORY [facility] CALCIUM 9.2 8.4 - 10.2 mg/dL 12/15/2023 10:51 PM EDT LAB[facility]ATORY [facility] Protein 6.5 6.0 - 8.3 g/dL 12/15/2023 10:51 PM EDT LABORATORY C ALT 22 10 - 50 U/L 12/15/2023 10:51 PM EDT LAB[facility]ATORY [facility] Blood Venous blood specimen / Unknown Venipuncture / Unknown 12/15/2023 2:23 PM EDT 12/15/2023 2:23 PM EDT Arron Quintero PA-C LAB BLOOD ORDERAB LES Performing Organization Address City/[facility]/ZIP Co de Phone Number [facility] [facility] [place] [address] [place] [address] * EKG (12/15/2023 12:47 PM EDT) 12/15/2023 12:4 7 PM EDT Narrative Procedure Note Dontae Palomino DO - 12/15/2023 12:47 PM EDT REASON FOR STUDY: CHEST PAIN CONCLUSIONS: Ventricular-paced rhythm Abnormal ECG When compared with ECG of 07-Oct-2019 08:27, Vent. 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 Care Teams Hot Molder Relationship Specialty Start Date End Date Heron Hutchinson MD [address] [place] [facility] [place] [address] PCP - General 03/28/1997 documented as of this encounter
--- OUTSIDE RECORDS SUMMARY | 2024-01-26 18:50 | External Medical Summary ---
Author Name Unknown Address Unknown Organization : Laboratory Report Ordering Provider Test Date Status ALLA NEWBERRY 01/03/2024 07:32:30 Final Therapeutic ranges for non-o perative patients:
Prophylaxsis/treatment of DVT: (Range:2.0-3.0)
Treatment of pulmonary embolism:(Range:2.0-3.0)
Prevention of systemic embolism from:
-tissue heart valves
-acute myocardial infarction
-valvular heart disease
-atrial fibrillation
(Range: 2.0-3.0)
Mechanical prosthetic valves: (Range: 2.5-3.5) Observation Date Value Abnormality Reference (Units ) Status INR in Capillary blood by Coagulation assay 01/03/2024 07:32:30 3.8 (INR) Final Performing Location
--- OUTSIDE RECORDS SUMMARY | 2024-01-26 18:50 | External Medical Summary | Summary of Care ---
Author Name Unknown Organization [facility] Address [address] [facility] [place] [address] Phone [phone] Care Team Providers Care Marketing Project Manager Name Role Phone Heron Hutchinson MD Primary Care Provider [phone] Encounter Details Date Type Department Care Team (Late st Contact Info) Description 12/21/2023 Orders Only PATIENT PORTAL DO NOT DELETE THIS DEPT USED BY [place] [id number] Allergies No known active allergiesdocumented as of this encounter (statuses as of 12/21/2023) Medications Medication Sig Dispensed Refills Start Date [...] as of this encounter (statuses as of 12/21/2023) Active Problems Problem Noted Date Diagnosed Date [...] 3 04/01/2019 Atherosclerotic heart diseas e of [place] coronary artery without angina pectoris 04/01/2019 Secondary [...] BIPAP Plus set at 12 cwp AHP correction current use of 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 Overview: ICD-10 update of inactive term documented as of this encounter (statuses as of 12/21/2023) Resolved Problems Problem Noted Date Diagnosed Date Resolved Date Prediabetes 06/01/2020 11/10/2020 Overview: Per Prediabetes protocol Idioventricular rhythm 11/13/201811/15 Hypertensive kidney disease with chronic kidney disease stage III 09/24/2018 02/06/2020 Overview: Per CKD protocol Kidney disease, chronic, sta ge III (GFR 30-59 ml/min) 09/05/2017 10/04/2018 Overview: Per CKD protocol #1 Atrial fibrillation 09/01/2015 03/26/20 18 Viral URI with cough 08/15/2014 018 [employer] Research Other*[id number] 07/12/2010 07/12/2013 Overview: PROJECT: #[id number], SPONSOR: Owen, PI: Ezio Johnson MD SUMMARY: [...] encounter can be closed. CONTACT: Ziyad Neely, American Indian Policy Specialist Chronic rhinitis 01/18/2010 08/15/2014 Elevated prostate specific antigen (PSA) 01/16/2002 03/26/2018 Benign prostatic hyperplasia 01/09/2002 03/26/2018 Overview: ICD-10 update of inactive term ICD-10 update of inactive term Anticoagulation management encounter 10/12/2001 03/26/2018 Open wound of forearm 09/01/20002017 Atrial fibrillation 09/25/1995 03/26/20 18 Dyslipidemia, goal to be determined 03/01/2013 documented as of this encounter (statuses as of 12/21/2023) Immunizations Name Administration Dates Next Due COVID-19 [...] Description 12/28/2023 11:00 AM EDT Office Visit [facility], [place] [address] [place] [facility] [place] [address] Heron Hutchinson MD [address] [place] [facility] [place] [address] 01/19/2024 1:40 PM EDT [facility]ticoagulation Pharm[facility], [place] [address] [facility] [address] [address] [facility] [address] [place] [facility] [place] [address] 01/26/2024 11:00 AM EDT Office Visit Cardiology, [facility] [address] [address] Diego George MD [address] [place] [address] 03/19/2024 3:30 PM EST Office Visit Cardiology, [facility] [address] [place] [address] Tahira Jones PA-C [address] [place] [address] 09/17/2024 10:15 AM EDT Office Visit Urology, [facility] [address] [place] [address] Zeus Davidson MD [address] [place] [address] Health Maintenance Due Date Last Done Comments Adult Wellness Visit 06/01/2003 Zoster Vaccines (2 of 2) 12/12/2017 10/17/2017, 09/26 Depression Screening 07/08/2021 07/08/2020 Albumin/Creatinine Ratio 12/21/2022 022, 10/11/2019, 05/22/2018 COVID-19 Vaccine ( season) 2023 04/17/2022, 02/06/2021, 05/29/2020, Additional history exists Influenza Vaccine (FLU shot) (#1) 2023 02/18/2023, 12/07/2022, 12/28/2021, Additional history exists CKD PHOS USE SMARTSET 39858 12/30/202307/2022, 12/21/2021, 09/12/2018, Additional history exists CKD HGB USE SMARTSET 22140 12/14/202412/14, 12/15/2023, 12/29/2022, Additional history exists HbA1c [...] this encounter Medical Devices Implanted Type Area Key Account Coordinator Device Identifier Shelf Expiration Date Model / Serial / Lot Baseplate #6 Tritanium - [id number] Implanted:Qty: 1 on 10/22/2019 by Sammy Higgins, DO at OR [facility] Left: Knee LISSET : ORTHOPAEDICS 07/23/2024 5536-B-600 / / [id number] Knee Triathlon Bead No Cuong L 6 - [id number] Implanted:Qty: 1 on 10/22/2019 by Sammy Higgins, DO at OR [facility] Left: Knee LISSET : ORTHOPAEDICS 07/09/2024 5517-F-601 / / [id number] Patella Symmetric S33mm 9mm - [id number] Implanted:Qty: 1 on 10/22/2019 by Sammy Higgins, at OR [facility] Left: Knee LISSET : ORTHOPAEDICS 10/29/2023 5556-L-339 / / [id number] Triathlon X3 Tibial Bearing Insert Cs Ramirez 6 Typ Cs Thkns 10mm Implanted:Qty: 1 on 10/22/2019 by Sammy Higgins, at OR [facility] Left: Knee 01/07/2024 5531-G-610 -E / / [id number] documented as of this encounter Advance Directives Documents on File Type Date Recorded Patient Food Tester Expl anation Advance Directives and Livin g Will 05/25/2017 LIVING WILL Power of Casing Soaker 05/25/2017 POWER OF A TTORNEY * Full [...] and were consensually agreed upon. Care Teams Marketing Project Manager Relationship Specialty Start Date End Date Heron Hutchinson MD [address] [facility] [place] [address] PCP - General 03/28/1997 documented as of this encounter
--- OUTSIDE RECORDS SUMMARY | 2024-01-26 18:50 | External Medical Summary | Summary of Care ---
Author Name Unknown Organization [facility] Address [address] [place] [address] Phone [phone] Care Team Providers Care Scalder Name Role Phone Heron Hutchinson MD Primary Care Provider [phone] Reason for Referral * Ancillary Services (Within 10 days (routine)) - Authorized Specialty Diagnoses / Procedures Referred By Charmaine randolph Referred To Contact Gastroenterology Diagnoses Iron deficiency anemia due to chronic blood loss Heron Hutchinson MD [address] [place] [address] Referral ID Status Reason Start Date Expiration Date Visits Requested Visits Authorized [id number] Authorized Ancillary Services Required 12/28/2023 999 999 Question Answer Referral Priority Within 10 days (routine) Where should this appointment be scheduled? [facility] Comments ALERT: Do not order for pediatric patients (18 years or younger). Cancel off screen and order PEDS GASTROENTEROLOGY CONSULT (Type: 1 visit only-Evaluate and Treat) The following Pt. Instructions are available: - Gastro Colonoscopy Prep Instructions [40985] - Gastro Colonoscopy Prep Instructions (Sinhala Version) [[id number]] Go to the Pt. Instructions section within the Visit Navigator to access. Colonoscopy ASGE Guidelines: Iron deficiency anemia and Average risk screening (begin at age 50, 10 year intervals) ADDITIONAL INFORMATION 1. Is the patient on Coumadin? Yes--Coumadin can be stopped for 5 days 2. Is the patient on Pradaxa? No * Ancillary Services (Within 10 days (routine)) - Authorized Specialty Diagnoses / Procedures Referred By Charmaine randolph Referred To Contact Gastroenterology Diagnoses Iron deficiency anemia due to chronic blood loss Heron Hutchinson MD [address] [place] [address] Referral ID Status Reason Start Date Expiration Date Visits Requested Visits Authorized [id number] Authorized Ancillary Services Required 12/28/[phone] Question Answer Referral Priority Within 10 days (routine) Where should this appointment be scheduled? [facility] Comments Upper Endoscopy ASGE Guidelines Presumed chronic blood loss and for iron deficiency anemia when the clinical situation suggests an upper GI source or when colonoscopy results are negative ADDITIONAL INFORMATION 1. Is the patient on Coumadin? Yes--Coumadin can be stopped for 5 days 2. Is the patient on Pradaxa? No Reason for Visit * Reason Comments Physical-Exam Patient is here toda y for a physical. Patient states he has been experiencing some SOB for a few years but seems to be getting worse. Patient states he went camping a few weeks ago and experienced "fullness" in his chest towards the center and felt like he could not get relief. He states he could not get comfortable. Patient states he is experiencing sinus pressure as well. stares his color is pale as well and has been since before [facility]. Encounter Details Date Type Department Care Team (Late st Contact Info) Description 12/28/2023 11:00 AM EDT Office Visit Located Within [facility] [address] [place] [address] Heron Hutchinson MD [address] [place], [place] [id number] Need for prophylactic vaccination and inoculation against influenza*; Chronic kidney disease, stage 3a (HCC); Iron deficiency anemia due to chronic blood [...] Atherosclerotic heart diseas e of [place] coronary artery without angina pectoris 04/01/2019 Secondary [...] BIPAP Plus set at 12 cwp AHP USP current use of 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 Overview: ICD-10 [...] URI with cough 08/15/2014 018 ORBIT-[employer] Research Other*[id number] 07/12/2010 07/12/2013 Overview: PROJECT: #[id number], SPONSOR: Owen, PI: Ezio Johnson MD SUMMARY: [...] encounter can be closed. CONTACT: Ziyad Neely, Family Court Counsellor Chronic rhinitis 01/18/2010 08/15/2014 Elevated prostate specific [...] Sign Reading Time Taken Comments Blood Pressure 92/68 12/28/2023 11:22 AM EDT Pulse 70 12/28/2023 11:22 AM EDT Temperature 36.2 C (97.1 F) 12/28/2023 11:22 AM E DT Respiratory Rate 16 12/28/2023 11:22 AM EDT Oxygen Saturation 98% 12/28/2023 11:22 AM EDT Inhaled Oxygen Concentration - - Weight 89.4 kg (197 lb 3.2 oz) 12/28/2023 11:22 AM EDT Height 165.1 cm (5' 5") 12/28/2023 11:22 AM EDT Body Mass Index 32.82 12/28/2023 11:22 AM EDT documented in this encounter Functional Status [...] as of this encounter Progress Notes * Heron Hutchinson MD - 12/28/2023 12:29 PM EDT Subjective: Macario Oliver is a 88 year old male. Chief Complaint Patient presents with Physical-Exam Patient is here today for a physical. Patient states he has been experiencing some SOB for a few years but seems to be getting worse. Patient states he went camping a few weeks ago and experienced "fullness" in his chest towards the center and felt like he could not get relief. He states he could not get comfortable. Patient states he is experiencing sinus pressure as well. stares his color is pale as well andhas been since before [facility]. HPI: 88-year-old seen today in follow-up after a episode that occurred while he was camping about an hour and a half away. He had developed a significant anterior chest pressure that started in the evening. Because he was so far from home, he did not seek medical attention. He did have pain through the night but by the next morning the discomfort was gone and has not recurred. A couple days later he was seen in [place] office for further evaluation which included an EKG which did not show any changes. Blood work showed anemia with iron- deficiency. Total iron was 30 with normal iron binding capacity and hemoglobin was 9.4. Wants those results were obtained he was started on iron which heis taking 1 a day. He is also asked to use Colace as a stool softener as he had complained of hard stool. He thought the chest discomfort was a consequence of over eating but that is not clear. He jenifer Coumadin therapy. He has intermittently noted dark to black stool but not all the time. He has not had true heartburn. 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 1 capsule every other day alternating with 2 capsules aspirin 81 MG chewable tablet Take 1 Tab by mouth daily. 34 Tab 2 hydroCHLOROthiazide 25 MG Oral Tablet (Hydrodiuril) TAKE ONE TABLET BY MOUTH 2-3 TIMES A WEEK 36 Tablet 3 amLODIPine Besylate 2.5 MG Oral Tablet (Norvasc) Take 1 Tablet by mouth in the morning. 90 Tablet 3 Atorvastatin Calcium 20 MG Oral [...] mouth in the morning. 30 Tablet 1 No current facility-administered medications for this visit. Review of patient's allergies indicates: No Known Allergies Objective: BP 92/68 | Pulse 70 | Temp 36.2 C (97.1 F) (Tympanic) | Resp 16 | Ht 1.651 m (5' 5") | Wt 89.4 kg (197 lb 3.2 oz) | SpO2 98% | BMI 32.82 kg/m | BSA 2.02 m Physical Exam: CONST: alert, pleasant, no acute distress. He does appear pale HEAD: normocephalic, atraumatic Eyes - PERRLA, EOM'I. Conjunctiva are pale OROPHARYNX: clear, no swelling or erythema, moist CV: regular rate and rhythm, no murmur CHEST: clear to auscultation bilaterally, no rales or wheezing ABD: soft, non tender, non distended, no masses or hepatosplenomegaly EXT: Trace bilateral lower leg/ankle edema, no joint swelling or deformities, NEURO: AAOx3, no gross focal deficits, cerebellar signs normal, affect appropriate MENTAL STATUS: no evidence of thought disorder, no delusional thought, no evidence of paranoia, thought is non-tangential. SKIN: no rash or significant lesions ASSESSMENT/PLAN: Need for prophylactic vaccination and inoculation against influenza (Primary) - INFLUENZA VAC., TRIVALENT, HD, PF, 65 AND ABOVE, 0.5 ML IM (FLUZONE HD) Chronic kidney disease, stage 3a (HCC) Iron deficiency anemia due to chronic blood loss. Besides the recent CBC, He had not had any CBC since 2020 at which time his hemoglobin was normal. Um suspicious that he has intermittent upper GI bleed possibly due to gastritis or peptic ulcer disease. New line he will need both upper and lower endoscopy. His Coumadin will have to be held for that. Additionally we may want to slightly decrease his Coumadin as his last INR was 3.8. Start omeprazole - CBC WITH WBC DIFFERENTIAL; Future; Expected date: 12/28/2023 - UPPER ENDOSCOPY GI REFERRAL OP - COLONOSCOPY, GI REFERRAL OP History of TAVR. History coronary artery disease-his symptoms Um 2 weeks ago may have in part been due to coronary disease Um but that is not clear. Of note is that his EKG did not show changes that was done about 4 days later. Heron Hutchinson MD * Hina Renee LPN - 12/28/2023 11:15 AM EDT Pre-Administration Time Out Procedure Performed: Yes Patient Identified (Ask Name/Date of ): Yes Does the patient have a fever greater than 101 degrees today? No Patient allergic to latex? No Has the patient ever fainted after receiving an injection? No VFC Stock: No Immunization(s) verified: Yes, Immunization Name: Flu, VIS Sheet(s) given: Yes Verified Side and Site: Yes Verified Shot(s) with Parent(s)/Patient: Yes PRE - ADMINISTRATION DOCUMENTATION Are you experiencing any cold symptoms or fever? No Have you had Guillain-[place] Syndrome (an illness that causes paralysis) within the last 6 weeks? No Have you had the flu shot in the past? YES Have you ever had a reaction to the flu shot? No Hina Renee LPN, 12/28/2023 11:15 AM Urine albumin/creatinine ratio ordered today. Provider aware. documented in this encounter Nursing Notes * Hina Renee LPN - 12/28/2023 11:27 AM EDT The patient has been properly identified by confirmation of name and date of . Chief Complaint Patient presents with Physical-Exam Patient is here today for a physical. Patient states he has been experiencing some SOB for a few years but seems to be getting worse. Patient states he went camping a few weeks ago and experienced "fullness" in his chest towards the center and felt like he could not get relief. He states he could not get comfortable. Patient states he is experiencing sinus pressure as well. stares his color is pale as well andhas been since before [facility]. documented in this encounter Plan of Treatment Upcoming Encounters Date Type Department Care Team (Late st Contact Info) Description 01/19/2024 1:40 PM EDT [facility], [place] [address] [facility] [address] [facility] [address] [place] [address] 01/26/2024 11:00 AM EDT Office Visit Cardiology, [facility] [address] [place] [address] [address] Diego George MD [address] [place] [address] 03/19/2024 3:30 PM EST Office Visit Cardiology, [facility] [address] [facility] [place] [address] Tahira Jones PA-C [address] [place] [address] 09/17/2024 10:15 AM EDT Office Visit Urology, [facility] [address] [facility] [place] [address] Zeus Davidson MD [address] [place] [address] Pending Results Name Type Priority Associated Diagnoses Date /Time CBC WITH WBC DIFFERENTIAL Lab Routine Iron deficiency anemia due to chronic blood loss 12/28/2023 12:43 PM EDT Scheduled Orders Name Type Priority Associated Diagnoses Orde r Schedule CBC WITH WBC DIFFERENTIAL Lab Routine Iron deficiency anemia due to chronic blood loss Expected: 12/28/2023 (Approximate), Expires: 12/27/2024 Scheduled Referrals Name Type Priority Associated Diagnoses Orde r Schedule UPPER ENDOSCOPY GI REFERRAL OP Referral Within 10 days (routine) Iron deficiency anemia due to chronic blood loss Ordered: 12/28/2023 COLONOSCOPY, GI REFERRAL OP Referral Within 10 days (routine) Iron deficiency anemia due to chronic blood loss Ordered: 12/28/2023 Health Maintenance Due Date Last Done Comments Adult Wellness Visit 06/01/2003 Albumin/Creatinine Ratio 12/21/20222 022, 10/11/2019, 05/22/2018 COVID-19 Vaccine ( season) 2023 04/17/2022, 02/06/2021, 05/29/2020, Additional history exists CKD PHOS USE SMARTSET 84586 12/30/2023 10/0 07/2022, 12/21/2021, 09/12/2018, Additional history exists CKD HGB USE SMARTSET 59032 12/14/202412/14, 12/15/2023, 12/29/2022, Additional history exists HbA1c [...] this encounter Medical Devices Implanted Type Area Research Engineer Marine Equipment Device Identifier Shelf Expiration Date Model / Serial / Lot Baseplate #6 Tritanium - [id number] Implanted:Qty: 1 on 10/22/2019 by Sammy Higgins DO at OR [facility] Left: Knee LISSET : ORTHOPAEDICS 07/23/2024 5536-B-600 / / [id number] Knee Triathlon Bead No Cuong L 6 - [id number] Implanted:Qty: 1 on 10/22/2019 by Sammy Higgins DO at OR [facility] Left: Knee LISSET : ORTHOPAEDICS 07/09/2024 5517-F-601 / / [id number] Patella Symmetric S33mm 9mm - [id number] Implanted:Qty: 1 on 10/22/2019 by Sammy Higgins DO at OR [facility] Left: Knee LISSET : ORTHOPAEDICS 10/29/2023 5556-L-339 / / [id number] Triathlon X3 Tibial Bearing Insert Cs Ramirez 6 Typ Cs Thkns 10mm Implanted:Qty: 1 on 10/22/2019 by Sammy Higgins DO at OR [facility] Left: Knee 01/07/2024 5531-G-610 -E / / [id number] documented as of this encounter Visit Diagnoses Diagnosis Need for prophylactic vaccination and inoculation against influenza- Primary Chronic kidney disease, stage 3a (HCC) Iron deficiency anemia due to chronic blood loss Iron deficiency anemia secondary to blood loss (chronic) documented in this encounter Advance Directives Documents on File Type Date Recorded Patient Print Shop Manager Expl anation Advance Directives and Livin g Will 05/25/2017 LIVING WILL Power of Umbrella Tipper 05/25/2017 POWER OF A TTORNEY * Full [...] and were consensually agreed upon. Care Teams Scalder Relationship Specialty Start Date End Date Heron Hutchinson MD [address] [place] [address] PCP - General 03/28/1997 documented as of this encounter
--- OUTSIDE RECORDS SUMMARY | 2024-01-26 18:51 | External Medical Summary ---
Author Name Unknown Address Unknown Organization K01:LABORATORY [facility] - [address] [place] [address] Laboratory Report Ordering Provider Test Date Status LEON HELLER 12/15/2023 14:23:05 Final Observation Date Value Abnormality Reference (Units ) Status Lipase 12/15/2023 14:23:05 57 13-60 (U/L ) Final Performing Location [facility] - [address] [place] [address]
--- OUTSIDE RECORDS SUMMARY | 2024-01-26 18:51 | External Medical Summary ---
Author Name Unknown Address Unknown Organization K01:LABORATORY [facility] [place] - [address] [place] [address] Laboratory Report Ordering Provider Test Date Status LEON HELLER 12/15/2023 14:23:05 Final Exclude Heart Failure: <300 pg/mL
Diagnose Heart Failure:
Age <50 yr: >450 pg/mL
50-75 yr: >900 pg/mL
>75 yr: >1800 pg/mL
GFR is 30-59 mL/min: >1200 pg/mL or Age- adjusted values
GFR <30 mL/min: do not use, not reliable

Prognostic threshold: 1000 pg/mL Observation Date Value Abnormality Reference (Units ) Status BNP, Pro-hormone 12/15/2023 14:23:05 1548 Above high no rmal <300 (pg/mL) Final Performing Location LABORATORY [facility] - [address] [place] [address]
--- OUTSIDE RECORDS SUMMARY | 2024-01-26 18:51 | External Medical Summary ---
Author Name Unknown Address Unknown Organization K01:LABORATORY [facility] [place] - [address] [facility] [place] [address] Laboratory Report Ordering Provider Test Date Status LEON HELLER 12/15/2023 14:23:05 Final Observation Date Value Abnormality Reference (Units ) Status SYNC LEUKOCYTES IN BLOOD BY AUTOMATED COUNT 12/15/2023 14:23:05 7.75 4.00-10.80 (K/uL) Final Segs 12/15/2023 14:23:05 73.6 40.0-75.0 (%) Final Lymphs % 12/15/2023 14:23:05 14.2 Below low normal 18.0-42.0 (%) Final Monos 12/15/2023 14:23:05 9.5 1.0-11.0 (%) Final Eosinophils 12/15/2023 14:23:05 1.7 0.0-6.0 (%) Final Basos 12/15/2023 14:23:05 0.6 0.0-2.0 (%) Final Immature Granulocyte, Percent 12/15/2023 14:23:05 0.4 0.0-2.0 (%) Final Absolute Segs 12/15/2023 14:23:05 5.70 1.80-7.70 (K/uL) Final Lymphs, absolute 12/15/2023 14:23:05 1.10 1.00-4.80 (K/ul) Final Monos, Abs 12/15/2023 14:23:05 0.74 0.00-1.10 (K/uL) Final Eos, Abs 12/15/2023 14:23:05 0.13 0.00-0.70 (K/uL) Final Basos, Abs 12/15/2023 14:23:05 0.05 0.00-0.20 (K/uL) Final Immature Granulocytes, Number 12/15/2023 14:23:05 0.03 0.00-0.20 (K/uL) Final Performing Location LABORATORY [facility] [place] - [address] [facility] [address]
--- OUTSIDE RECORDS SUMMARY | 2024-01-26 18:51 | External Medical Summary | Summary of Care ---
Author Name Unknown Organization [facility] Address [address] [facility] [place] [address] Phone [phone] Care Team Providers Care Exploitation Analyst Name Role Phone Heron Hutchinson MD Primary Care Provider [phone] Reason for Visit * Reason Onset Date Comments Health Maintenance 10/20/2023 Encounter Details Date Type Department Care Team (Late st Contact Info) Description 10/20/2023 Telephone [facility] [address] [place] [address] Heron Hutchinson MD [address] [place] [address] Health Maintenance Allergies No known active allergiesdocumented as of this encounter (statuses as of 10/20/2023) Medications Medication Sig Dispensed Refills Start Date [...] as of this encounter (statuses as of 10/20/2023) Active Problems Problem Noted Date Diagnosed Date [...] 3 04/01/2019 Atherosclerotic heart diseas e of [place] coronary artery without angina pectoris 04/01/2019 Secondary [...] 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 Overview: ICD-10 update of inactive term documented as of this encounter (statuses as of 10/20/2023) Resolved Problems Problem Noted Date Diagnosed Date Resolved Date Prediabetes 06/01/2020 11/10/2020 Overview: Per Prediabetes protocol Idioventricular rhythm 11/13/201811/15 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 CONTACT: Ziyad Neely, Cylinder Filler Chronic rhinitis 01/18/2010 08/15/2014 Elevated prostate specific antigen (PSA) 01/16/2002 03/26/2018 Benign prostatic hyperplasia 01/09/2002 03/26/2018 Overview: ICD-10 update of inactive term ICD-10 update of inactive term Anticoagulation management encounter 10/12/2001 03/26/2018 Open wound of forearm 09/01/20002017 Atrial fibrillation 09/25/1995 03/26/20 18 Dyslipidemia, goal to be determined 03/01/2013 documented as of this encounter (statuses as of 10/20/2023) Immunizations Name Administration Dates Next Due COVID-19 mRNA, LNP-s, No Pre serve, 2-Dose Series (Moderna) 05/29/2020,05/01/2020 COVID-19, mRNA, LNP-s, PF, B ooster, 100mcg/0.5mg (Moderna) 02/06/2021 Covid-19, Mrna, Lnp-s, Pf, B ivalent, 30 Mcg, IM, 12 yrs and above (Pfizer) 04/17/2022 Pneumococcal Conjugate Vacc, 13 Valent (Prevnar) 08/28/2014 Pneumococcal Polysaccharide PPV23 (Pneumovax) 09/20/2011 Season Influenza, Cell Cultu re, 18+ Yrs, With Preserv (Flucelvax) 04/02/2013 Season Influenza, Quad, PF, Adjuvanted, 65+ Yrs, IM (FLUAD) 02/18/2023 Seasonal Influenza, PF, 6 M & above, IM , (FluLaval or Fluzone) 12/25/2019,01/22/2019,03/26/2018 Seasonal Influenza, Quadriva lent Hd (Fluzone Hd) 12/07/2022,12/28/2021,12/04/2020 Seasonal Influenza, Quadriva lent, No Preserve, IM 01/22/2019,02/23/2015 Seasonal Influenza, Split, I IV3, With Preserve, Inj 12/17/2016,12/16/2015,04/30/2014,03/22,03/17/2011,01/14/2010,02/25/2009 ,04/18/2008 TD, Preservative Free 06/29/2022 TDAP [...] encounter Miscellaneous Notes * Telephone Encounter - Lucina Correa LPN - 10/20/2023 9:31 AM EDT Care Gaps Comprehensive Care Outreach Last Office/Telemedicine Visit: 12/29/2022 (in office), Visit date not found (telemedicine) Next Office Visit: Visit date not found Hemoglobin AIC Results: Lab Results Component Value Date/Time HEMOGLOBIN A1C - [facility] 6.0 (H) 12/29/2022 02:01 PM HEMOGLOBIN A1C - [facility] 6.2 (H) 06/29/2022 03:27 PM HEMOGLOBIN A1C - [facility] 6.1 (H) 12/21/2021 08:16 AM HEMOGLOBIN A1C - [facility] 6.0 (H) 10/07/2019 09:18 AM HEMOGLOBIN A1C - [facility] 6.0 (H) 11/14/2018 06:23 AM BP Readings from Last 1 Encounters: 04/18/23 140/80 Reviewed Health Maintenance below: Health Maintenance Topic Date Due Zoster Vaccines (2 of 2) 12/12/2017 Depression Screening 07/08/2021 COVID-19 Vaccine ( season) 2022 Albumin/Creatinine Ratio 12/21/2022 Influenza Vaccine (FLU shot) (1) 11/26/2023 HbA1c 12/30/2023 CKD HGB USE SMARTSET 85518 12/30/2023 CKD PHOS USE SMARTSET 42528 12/30/2023 Ghp recapture Ov scheduled Labs oct appt scheduled with lab orders defer to pcp Care Gap Outreach Action Taken: Spoke to patient documented in this encounter Plan of Treatment Upcoming Encounters Date Type Department Care Team (Late st Contact Info) Description 11/13/2023 7:30 AM EDT Anticoagulation Pharmacy, [place] [address] [place] [facility] [place] [address] [place], [facility] [address] [place] [facility] [address] 01/19/2024 2:00 PM EDT Office Visit [facility] [place] [address] [facility] [phone] Heron Hutchinson MD [address] [place] [address] 09/17/2024 10:15 AM EDT Office Visit Urology, [facility] [address] [facility] [place] [address] Zeus Davidson MD [address] [place] [address] Health Maintenance Due Date Last Done Comments Zoster Vaccines (2 of 2) 12/12/2017 10/17/2017, 09/26 Depression Screening 07/08/2021 07/08/2020 COVID-19 Vaccine ( season) 2022 04/17/2022, 02/06/2021, 05/29/2020, Additional history exists Albumin/Creatinine Ratio 12/21/202212/21/2 022, 10/11/2019, 05/22/2018 Influenza Vaccine (FLU shot) (#1) 2023 02/18/2023, 12/07/2022, 12/28/2021, Additional history exists CKD HGB USE SMARTSET 17097 12/30/202312/29, 12/21/2021, 10/15/2020, Additional history exists CKD PHOS USE SMARTSET 39050 12/30/2023 10/0 07/2022, 12/21/2021, 09/12/2018, Additional history exists HbA1c 12/30/2023 12/29/2022, 04/0 07/2022, 12/21/2021, Additional history exists DTaP,Tdap,and Td Vaccines (3 - Td or Tdap) 06/29/2032 [...] this encounter Medical Devices Implanted Type Area Pre Wave Assembler Device Identifier Shelf Expiration Date Model / Serial / Lot Baseplate #6 Tritanium - [id number] Implanted:Qty: 1 on 10/22/2019 by Sammy Higgins DO at OR [facility] Left: Knee LISSET : ORTHOPAEDICS 07/23/2024 5536-B-600 / / [id number] Knee Triathlon Bead No Cuong L 6 - [id number] Implanted:Qty: 1 on 10/22/2019 by Sammy Higgins DO at OR [facility] Left: Knee LISSET : ORTHOPAEDICS 07/09/2024 5517-F-601 / / [id number] Patella Symmetric S33mm 9mm - [id number] Implanted:Qty: 1 on 10/22/2019 by Sammy Higgins DO at OR [facility] Left: Knee LISSET : ORTHOPAEDICS 10/29/2023 5556-L-339 / / [id number] Triathlon X3 Tibial Bearing Insert Cs Ramirez 6 Typ Cs Thkns 10mm Implanted:Qty: 1 on 10/22/2019 by Sammy Higgins DO at OR [facility] Left: Knee 01/07/2024 5531-G-610 -E / / [id number] documented as of this encounter Advance Directives Documents on File Type Date Recorded Patient Hypo Dipper Expl anation Advance Directives and Zac lora Will 05/25/2017 LIVING WILL Power of Cotton Breeder 05/25/2017 POWER OF A TTORNEY * Full [...] and were consensually agreed upon. Care Teams Exploitation Analyst Relationship Specialty Start Date End Date Heron Hutchinson MD [address] [place] [address] PCP - General 03/28/1997 documented as of this encounter
--- OUTSIDE RECORDS SUMMARY | 2024-01-26 18:51 | External Medical Summary | Summary of Care ---
Author Name Unknown Organization [facility] Address [address] [facility] [place] [address] Phone [phone] Care Team Providers Care Podiatric Surgeon Name Role Phone Heron Hutchinson MD Primary Care Provider [phone] Reason for Visit * Reason Comments Dosage Adjustment In Person (Anticoag Cl inic) Encounter Details Date Type Department Care Team (Latest Contact Info) Description 11/13/2023 7:30 AM EDT Anticoagulation Pharmacy, [place] [address] [place] [address] [facility] [address] [place] [address] Anticoagulation management encounter*; Chronic atrial fibrillation (HCC); S/P TAVR (transcatheter aortic valve replacement) Allergies No known active allergiesdocumented as of this encounter (statuses as of 11/13/2023) Medications Medication Sig Dispensed Refills Start Date [...] as of this encounter (statuses as of 11/13/2023) Active Problems Problem Noted Date Diagnosed Date [...] 3 04/01/2019 Atherosclerotic heart diseas e of [place] coronary artery without angina pectoris 04/01/2019 Secondary [...] 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 Overview: ICD-10 update of inactive term documented as of this encounter (statuses as of 11/13/2023) Resolved Problems Problem Noted Date Diagnosed Date Resolved Date Prediabetes 06/01/2020 11/10/2020 Overview: Per Prediabetes protocol Idioventricular rhythm 11/13/201811/15 Hypertensive kidney disease with chronic kidney disease stage III 09/24/2018 02/06/2020 Overview: Per CKD protocol Kidney disease, chronic, sta ge III (GFR 30-59 ml/min) 09/05/2017 10/04/2018 Overview: Per CKD protocol #1 Atrial fibrillation 09/01/2015 03/26/20 18 Viral URI with cough 08/15/2014 018 ORBIT-AF Research Other*[id number] 07/12/2010 07/12/2013 Overview: PROJECT: #[id number], SPONSOR: Owen, PI: Ezio Johnson MD SUMMARY: [...] encounter can be closed. CONTACT: Ziyad Neely, Bolt Header Chronic rhinitis 01/18/2010 08/15/2014 Elevated prostate specific antigen (PSA) 01/16/2002 03/26/2018 Benign prostatic hyperplasia 01/09/2002 03/26/2018 Overview: ICD-10 update of inactive term ICD-10 update of inactive term Anticoagulation management encounter 10/12/2001 03/26/2018 Open wound of forearm 09/01/20002017 Atrial fibrillation 09/25/1995 03/26/20 18 Dyslipidemia, goal to be determined 03/01/2013 documented as of this encounter (statuses as of 11/13/2023) Immunizations Name Administration Dates Next Due COVID-19 [...] of this encounter Progress Notes * Taty Marte [facility] - 11/13/2023 7:30 AM EDT Images from the original note were not included. Medication Therapy Disease Management - Anticoagulation Patient: Macario Oliver | : 1935 Subjective Patient-Reported Symptoms: Patient Findings Positives: Signs/symptoms of bleeding (did have a cut on his arm that was bandaged- happened at work) Negatives: Signs/symptoms of thrombosis, Change in health, Change in alcohol use, Change in activity, Upcoming invasive procedure, Missed doses, Extra doses, Change in medications, Change in diet/appetite, Bruising Objective Current Warfarin Dose As of 11/13/2023 Warfarin maintenance plan: 7.5 mg (5 mg x 1.5) every Mon, Wed, Fri; 5 mg (5 mg x 1) all other days INR Result As of 11/13/2023 INR goal: 2.0-3.0 INR used for dosin.3 (11/13/2023) Assessment & Plan Warfarin Plan As of 11/13/2023 Full warfarin instructions: 11/12: Hold; Otherwise 7.5 mg every Mon, Fri; 5 mg all other days Next INR check: 12/19/2023 Repeat PT/INR in 5 week(s) Weekly dose: not changed Additional Dosing Information: I spent a total of 10-19 minutes (exact time 10 mins) on the date of service in preparation, delivery, and documentation of the care provided to Macario Oliver excluding any time spent in the performance of separately billed services or time spent by another provider/QHP. Taty Marte [facility] Clinical Pharmacist 11/13/2023, 7:30 AM Electronically signed by Taty Marte [facility] at 11/13/2023 7:38 AM EDT documented in this encounter Plan of Treatment Upcoming Encounters Date Type Department Care Team (Late st Contact Info) Description 12/19/2023 7:30 AM EDT Anticoagulation Pharmacy, [place] [address] [place] [facility] [place] [id number] [facility] [address] [place] [facility] [place] [id number] 01/19/2024 2:00 PM EDT Office Visit Family Practice, [place] [address] [place] [facility] [place] [id number] Heron Hutchinson MD [address] [place] [address] 09/17/2024 10:15 AM EDT Office Visit Urology, [facility] [address] [facility] [place] [address] Zeus Davidson MD [address] [place] [address] Health Maintenance Due Date Last Done Comments Adult Wellness Visit 06/01/2003 Zoster Vaccines (2 of 2) 12/12/2017 10/17/2017, 09/26 Depression Screening 07/08/2021 07/08/2020 COVID-19 Vaccine ( season) 2022 04/17/2022, 02/06/2021, 05/29/2020, Additional history exists Albumin/Creatinine Ratio 12/21/2022 022, 10/11/2019, 05/22/2018 Influenza Vaccine (FLU shot) (#1) 2023 02/18/2023, 12/07/2022, 12/28/2021, Additional history exists CKD HGB USE SMARTSET 79648 12/30/202312/29, 12/21/2021, 10/15/2020, Additional history exists CKD PHOS USE SMARTSET 25382 12/30/202307/2022, 12/21/2021, 09/12/2018, Additional history exists HbA1c 12/30/2023 12/29/2022, 07/2022, 12/21/2021, Additional history exists DTaP,Tdap,and Td [...] this encounter Medical Devices Implanted Type Area Barrel Rifler Hook Device Identifier Shelf Expiration Date Model / Serial / Lot Baseplate #6 Tritanium - [id number] Implanted:Qty: 1 on 10/22/2019 by Sammy Higgins DO at OR [facility] Left: Knee LISSET : ORTHOPAEDICS 07/23/2024 5536-B-600 / / [id number] Knee Triathlon Bead No Cuong L 6 - [id number] Implanted:Qty: 1 on 10/22/2019 by Sammy Higgins DO at OR [facility] Left: Knee LISSET : ORTHOPAEDICS 07/09/2024 5517-F-601 / / [id number] Patella Symmetric S33mm 9mm - [id number] Implanted:Qty: 1 on 10/22/2019 by Sammy Higgins DO at OR [facility] Left: Knee LISSET : ORTHOPAEDICS 10/29/2023 5556-L-339 / / [id number] Triathlon X3 Tibial Bearing Insert Cs Ramirez 6 Typ Cs Thkns 10mm Implanted:Qty: 1 on 10/22/2019 by Sammy Higgins DO at OR [facility] Left: Knee 01/07/2024 5531-G-610 -E / / [id number] documented as of this encounter Procedures Procedure Name Priority Date/Time Associated Diagnosis Comments INR FINGERSTICK, POINT OF CARE STAT 11/13/2023 7:33 AM EDT Chronic atrial fibrillation (HCC) S/P TAVR (transcatheter aortic valve replacement) Anticoagulation management encounter documented in this encounter Results * INR FINGERSTICK, POINT OF CARE (11/13/2023 7:33 AM EDT) Fingerstick INR 3.3 INR 7:37 AM EDT [facility] Blood 11/13/2023 7:33 AM EDT 11/13/2023 7:37 AM EDT Narrative [facility] - 11/13/2023 7:37 AM EDT Therapeutic ranges for non-operative patients: Prophylaxsis/treatment of DVT: (Range:2.0-3.0) Treatment of pulmonary embolism:(Range:2.0-3.0) Prevention of systemic embolism from: -tissue heart valves -acute myocardial infarction -valvular heart disease -atrial fibrillation (Range: 2.0-3.0) Mechanical prosthetic valves: (Range: 2.5-3.5) Taty Marte [facility] LAB POINT OF CARE TEST DOCKED DEVICE UNSOLICITED RESULTS [facility] [address] [place] [address] documented in this encounter Visit Diagnoses Diagnosis Anticoagulation management encounter- Primary Encounter for therapeutic drug monitoring Chronic atrial fibrillation (HCC) Atrial fibrillation S/P TAVR (transcatheter aortic valve replacement) Heart valve replaced by other means documented in this encounter Advance Directives Documents on File Type Date Recorded Patient Senior C Developer Expl anation Advance Directives and Zac lora Will 05/25/2017 LIVING WILL Power of Racecar Driver 05/25/2017 POWER OF A TTORNEY * Full [...] and were consensually agreed upon. Care Teams Podiatric Surgeon Relationship Specialty Start Date End Date Heron Hutchinson MD [address] [place] [address] PCP - General 03/28/1997 documented as of this encounter"
--- OUTSIDE RECORDS SUMMARY | 2024-01-26 18:51 | External Medical Summary | Summary of Care ---
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); Risk and functional assessment Allergies No known active allergiesdocumented as of this encounter (statuses as of 12/15/2023) Medications Medication Sig Dispensed Refills Start Date [...] as of this encounter (statuses as of 12/15/2023) Active Problems Problem Noted Date Diagnosed Date [...] 3 04/01/2019 Atherosclerotic heart diseas e of [place] coronary artery without angina pectoris 04/01/2019 Secondary [...] as of this encounter (statuses as of 12/15/2023) Resolved Problems Problem Noted Date Diagnosed Date Resolved Date Prediabetes 06/01/2020 11/10/2020 Overview: Per Prediabetes protocol Idioventricular rhythm 11/13/201811/15 Hypertensive kidney disease with chronic kidney disease stage III 09/24/2018 02/06/2020 Overview: Per CKD protocol Kidney disease, chronic, sta ge III (GFR 30-59 ml/min) 09/05/2017 10/04/2018 Overview: Per CKD protocol #1 Atrial fibrillation 09/01/2015 03/26/20 18 Viral URI with cough 08/15/2014 018 ORBIT-[employer] Research Other*[id number] 07/12/2010 07/12/2013 Overview: PROJECT: #[id number], SPONSOR: Owen, PI: Ezio Johnson MD SUMMARY: [...] encounter can be closed. CONTACT: Ziyad Neely, Vehicle Insurance Agent Chronic rhinitis 01/18/2010 08/15/2014 Elevated prostate specific antigen (PSA) 01/16/2002 03/26/2018 Benign prostatic hyperplasia 01/09/2002 03/26/2018 Overview: ICD-10 update of inactive term ICD-10 update of inactive term Anticoagulation management encounter 10/12/2001 03/26/2018 Open wound of forearm 09/01/20002017 Atrial fibrillation 09/25/1995 03/26/20 18 Dyslipidemia, goal to be determined 03/01/2013 documented as of this encounter (statuses as of 12/15/2023) Immunizations Name Administration Dates Next Due COVID-19 [...] that mean climbing, even on a stepstool. [employer] Patient Education Copyright 2008 - 2010 [employer] except where otherwise noted. Treating Urinary Incontinence [...] documented in this encounter Progress Notes * Aric Benson PA-C - 12/15/2023 1:07 PM EDT Images [...] extensive cardiac history. documented in this encounter Plan of Treatment Upcoming Encounters Date Type Department Care Team (Late st Contact Info) Description 12/19/2023 7:30 AM EDT Anticoagulation Pharmacy, [place] [address] [place] [address] [facility] [address] [place] [address] 01/19/2024 2:00 PM EDT Office Visit [facility] [place] [address] [place] [address] Heron Hutchinson MD [address] [place] [address] 09/17/2024 10:15 AM EDT Office Visit Urology, [facility] [address] [facility] [place] [address] Zeus [place] MD [address] [place] [address] Pending Results Name Type Priority Associated Diagnoses Date /Time CBC WITH WBC DIFFERENTIAL Lab Routine Chest discomfort Abdominal discomfort 12/15/2023 2:23 PM EDT COMPREHENSIVE METABOLIC PANEL Lab Routine Chest discomfort Abdominal discomfort 12/15/2023 2:23 PM EDT HEMOGLOBIN A1C Lab Routine Prediabetes 12/15/2023 2:23 PM EDT LIPASE Lab Routine Chest discomfort Abdominal discomfort 12/15/2023 2:23 PM EDT BNP, NT-PRO Lab Routine Chest discomfort Abdominal discomfort 12/15/2023 2:23 PM EDT TSH WITH FREE T4 IF INDICATED Lab Routine Chest discomfort Abdominal discomfort 12/15/2023 2:23 PM EDT Scheduled Orders Name Type Priority Associated Diagnoses Orde r Schedule CBC WITH WBC DIFFERENTIAL Lab Routine Chest discomfort Abdominal discomfort Expected: 12/15/2023 (Approximate), Expires: 12/14/2024 COMPREHENSIVE METABOLIC PANEL Lab Routine Chest discomfort Abdominal discomfort Expected: 12/15/2023 (Approximate), Expires: 12/14/2024 HEMOGLOBIN A1C Lab Routine Prediabetes Expected: 12/15/2023 (Approximate), Expires: 12/14/2024 LIPASE Lab Routine Chest discomfort Abdominal discomfort Expected: 12/15/2023 (Approximate), Expires: 12/14/2024 BNP, NT-PRO Lab Routine Chest discomfort Abdominal discomfort Expected: 12/15/2023 (Approximate), Expires: 12/14/2024 TSH WITH FREE T4 IF INDICATED Lab Routine Chest discomfort Abdominal discomfort Expected: 12/15/2023 (Approximate), Expires: 12/14/2024 Health Maintenance Due Date Last Done Comments Adult Wellness Visit 06/01/2003 Zoster Vaccines (2 of 2) 12/12/2017 10/17/2017, 09/26 Depression Screening 07/08/2021 07/08/2020 Albumin/Creatinine Ratio 12/21/2022 022, 10/11/2019, 05/22/2018 COVID-19 Vaccine ( season) 2023 04/17/2022, 02/06/2021, 05/29/2020, Additional history exists Influenza Vaccine (FLU shot) (#1) 2023 02/18/2023, 12/07/2022, 12/28/2021, Additional history exists CKD HGB USE SMARTSET 90508 12/30/202312/29, 12/21/2021, 10/15/2020, Additional history exists CKD PHOS USE SMARTSET 54318 12/30/202307/2022, 12/21/2021, 09/12/2018, Additional history exists HbA1c 12/30/2023 12/29/2022, 04/0 07/2022, 12/21/2021, Additional history exists DTap/Tdap Vaccines (3 - [...] this encounter Medical Devices Implanted Type Area Flute Polisher Device Identifier Shelf Expiration Date Model / Serial / Lot Baseplate #6 Tritanium - [id number] Implanted:Qty: 1 on 10/22/2019 by Sammy Higgins DO at OR [facility] Left: Knee LISSET : ORTHOPAEDICS 07/23/2024 5536-B-600 / / [id number] Knee Triathlon Bead No Cuong L 6 - [id number] Implanted:Qty: 1 on 10/22/2019 by Sammy Higgins DO at OR [facility] Left: Knee LISSET : ORTHOPAEDICS 07/09/2024 5517-F-601 / / [id number] Patella Symmetric S33mm 9mm - [id number] Implanted:Qty: 1 on 10/22/2019 by Sammy Higgins DO at OR [facility] Left: Knee LISSET : ORTHOPAEDICS 10/29/2023 5556-L-339 / / [id number] Triathlon X3 Tibial Bearing Insert Cs Ramirez 6 Typ Cs Thkns 10mm Implanted:Qty: 1 on 10/22/2019 by Sammy Higgins DO at OR [facility] Left: Knee 01/07/2024 5531-G-610 -E / / [id number] documented as of this encounter Results * EKG (12/15/2023 12:47 PM EDT) 12/15/2023 12:4 7 PM EDT Narrative Procedure Note Dontae Palomino, DO - 12/15/2023 12:47 PM EDT REASON FOR STUDY: CHEST PAIN CONCLUSIONS: Ventricular-paced rhythm Abnormal ECG When compared with ECG of 07-Oct-2019 08:27, Vent. 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 Care Teams Editor Continuity And Script Relationship Specialty Start Date End Date Heron Hutchinson MD [address] [place] [address] PCP - General 03/28/1997 documented as of this encounter
--- OUTSIDE RECORDS SUMMARY | 2024-01-26 18:51 | External Medical Summary ---
Author Name Unknown Address Unknown Organization K01:[facility] [address] [place] [address] Laboratory Report Ordering Provider Test Date Status LEON HELLER 12/15/2023 14:23:05 Final Observation Date Value Abnormality Reference (Units ) Status Folic Acid 12/15/2023 14:23:05 16.8 >4.5 (ng/ mL) Final Performing Location [facility] [address] [place] [address]
--- OUTSIDE RECORDS SUMMARY | 2024-01-26 18:51 | External Medical Summary ---
Author Name Unknown Address Unknown Organization : Laboratory Report Ordering Provider Test Date Status ALLA NEWBERRY 10/05/2023 07:34:46 Final Therapeutic ranges for non-o perative patients:
Prophylaxsis/treatment of DVT: (Range:2.0-3.0)
Treatment of pulmonary embolism:(Range:2.0-3.0)
Prevention of systemic embolism from:
-tissue heart valves
-acute myocardial infarction
-valvular heart disease
-atrial fibrillation
(Range: 2.0-3.0)
Mechanical prosthetic valves: (Range: 2.5-3.5) Observation Date Value Abnormality Reference (Units ) Status INR in Capillary blood by Coagulation assay 10/05/2023 07:34:46 3.8 (INR) Final Performing Location
--- OUTSIDE RECORDS SUMMARY | 2024-01-26 18:51 | External Medical Summary ---
Author Name Unknown Address Unknown Organization K01:[facility] - [address] [place] [address] Laboratory Report Ordering Provider Test Date Status LEON HELLER 12/15/2023 14:23:05 Final Observation Date Value Abnormality Reference (Units ) Status Ferritin 12/15/2023 14:23:05 54 30-400 (ng /mL) Final Performing Location [facility] - [address] [place] [address]
--- OUTSIDE RECORDS SUMMARY | 2024-01-26 18:51 | External Medical Summary ---
Author Name Unknown Address Unknown Organization K01:LAB[facility]ATORY [facility] - [address] [place] [address] Laboratory Report Ordering Provider Test Date Status LEON HELLER 12/15/2023 14:23:05 Final Observation Date Value Abnormality Reference (Units ) Status Iron 12/15/2023 14:23:05 30 Below low normal 45-176 (ug/dL) Final Iron-binding capacity 12/15/2023 14:23:05 384 250-425 (ug/dL) Final Transferrin Sat % 12/15/2023 14:23:05 8 Below low normal 15-55 (%) Final Performing Location LABORATORY [facility] - [address] [place] [address]
--- OUTSIDE RECORDS SUMMARY | 2024-01-26 18:51 | External Medical Summary ---
Author Name Unknown Address Unknown Organization K01:[facility]ORATORY [facility] - [facility] [place] [address] Laboratory Report Ordering Provider Test Date Status LEON HELLER 12/15/2023 14:23:05 Final Observation Date Value Abnormality Reference (Units ) Status WBC, Total 12/15/2023 14:23:05 7.75 4.00-10.80 (K/uL) Final RBC 12/15/2023 14:23:05 3.15 4.50-5.25 (M/uL) Final Hemoglobin 12/15/2023 14:23:05 9.4 Below low normal 14.0-16.8 (g/dL) Final HCT 12/15/2023 14:23:05 30.8 Below low normal 40.0-48.4 (%) Final MCV 12/15/2023 14:23:05 97.8 82.0-99.5 (fL) Final MCH 12/15/2023 14:23:05 29.8 27.0-34.0 (pg) Final MCHC 12/15/2023 14:23:05 30.5 32.0-36.0 (g/dL) Final RDW 12/15/2023 14:23:05 14.5 11.5-15.5 (%) Final Platelets 12/15/2023 14:23:05 194 140-400 (K/uL) Final MPV 12/15/2023 14:23:05 9.6 6.6-11.1 (fL) Final Nucleated erythrocytes/100 leukocytes [Ratio] in Blood by Automated count 12/15/2023 14:23:05 0 <=0 (/100 WBCs) Final Performing Location LABORATORY [facility] - [address] [place] [address]
--- OUTSIDE RECORDS SUMMARY | 2024-01-26 18:51 | External Medical Summary | Summary of Care ---
Author Name Unknown Organization [facility] Address [address] [place] [address] Phone [phone] Care Team Providers Care Stapler Coil Unit Name Role Phone Heron Hutchinson MD Primary Care Provider [phone] Reason for Visit * Reason Comments Outpatient Testing Encounter Details Date Type Department Care Team ([facility] st Contact Info) Description 12/15/2023 2:20 PM EDT Laboratory Laboratory Patient Service [address] [id number] [address] Chest discomfort; Abdominal discomfort; Prediabetes Allergies No known active allergiesdocumented as of [...] 3 04/01/2019 Atherosclerotic heart diseas e of [place] coronary artery without angina pectoris 04/01/2019 Secondary [...] URI with cough 08/15/2014 018 [employer] Other*[id number] 07/12/2010 07/12/2013 Overview: PROJECT: #[id number], SPONSOR: Andrei&Andrei, PI: Ezio Johnson MD SUMMARY: [...] encounter can be closed. CONTACT: Ziyad Neely, Health Policy Manager Chronic rhinitis 01/18/2010 08/15/2014 Elevated prostate specific [...] Description 12/19/2023 7:30 AM EDT Anticoagulation Pharmacy, [place] [address] [place] [address] [place] [facility] [address] [place] [address] 01/19/2024 2:00 PM EDT Office Visit Family Practice, [place] [address] [place] [address] Heron Hutchinson MD [address] [place] [address] 09/17/2024 10:15 AM EDT Office Visit Urology, [facility] [address] [facility] [place] [address] Zeus Davidson MD [address] [place] [address] Pending Results Name Type Priority Associated Diagnoses [...] discomfort Abdominal discomfort 12/15/2023 2:23 PM EDT CBC Lab Routine Chest discomfort Abdominal discomfort 12/15/2023 2:23 PM EDT DIFFERENTIAL, AUTOMATED Lab Routine Chest discomfort Abdominal discomfort 12/15/2023 2:23 PM EDT Health Maintenance Due Date Last Done Comments Adult Wellness Visit 06/01/2003 Zoster Vaccines (2 of 2) 12/12/2017 10/17/2017, 09/26 Depression Screening 07/08/2021 07/08/2020 Albumin/Creatinine Ratio 12/21/2022 022, 10/11/2019, 05/22/2018 COVID-19 Vaccine ( season) 2023 04/17/2022, 02/06/2021, 05/29/2020, Additional history exists Influenza Vaccine (FLU shot) (#1) 2023 02/18/2023, 12/07/2022, 12/28/2021, Additional history exists CKD HGB USE SMARTSET 71274 12/30/202312/29, 12/21/2021, 10/15/2020, Additional history exists CKD PHOS USE SMARTSET 90449 12/30/2023 100 07/2022, 12/21/2021, 09/12/2018, Additional history exists HbA1c [...] this encounter Medical Devices Implanted Type Area Masonry Teacher Device Identifier Shelf Expiration Date Model / Serial / Lot Baseplate #6 Tritanium - [id number] Implanted:Qty: 1 on 10/22/2019 by Sammy Higgins, DO at OR [facility] Left: Knee LISSET : ORTHOPAEDICS 07/23/2024 5536-B-600 / / [id number] Knee Triathlon Bead No Cuong L 6 - [id number] Implanted:Qty: 1 on 10/22/2019 by Sammy Hgigins, DO at OR [facility] Left: Knee LISSET : ORTHOPAEDICS 07/09/2024 5517-F-601 / / [id number] Patella Symmetric S33mm 9mm - [id number] Implanted:Qty: 1 on 10/22/2019 by Sammy Higgins, at OR [facility] Left: Knee LISSET : ORTHOPAEDICS 10/29/2023 5556-L-339 / / [id number] Triathlon X3 Tibial Bearing Insert Cs Ramirez 6 Typ Cs Thkns 10mm Implanted:Qty: 1 on 10/22/2019 by Sammy Higgins, DO at OR [facility] Left: Knee 01/07/2024 5531-G-610 -E / / [id number] documented as of this encounter Visit Diagnoses Diagnosis Chest discomfort Other chest pain Abdominal discomfort Abdominal pain, unspecified site Prediabetes Other abnormal glucose documented in this encounter Advance Directives Documents on File Type Date Recorded Patient Management Analyst Expl anation Advance Directives and Livin g Will 05/25/2017 LIVING WILL Power of Chain Offbearer 05/25/2017 POWER OF A TTORNEY * Full [...] and were consensually agreed upon. Care Teams Stapler Coil Unit Relationship Specialty Start Date End Date Heron Hutchinson MD [address] [place] [address] PCP - General 03/28/1997 documented as of this encounter
--- OUTSIDE RECORDS SUMMARY | 2024-01-26 18:51 | External Medical Summary | Summary of Care ---
Author Name Unknown Organization [facility] Address [address] [facility] [address] Phone [phone] Care Team Providers Care Lifestyle Coordinator Name Role Phone Dot Hutchinson MD Primary Care Provider [phone] Reason for Visit * Reason Comments Follow Up * Precert (Within 30 days (routine)) - Authorized Specialty Diagnoses / Procedures Referred By Contac t Referred To Contact Urology Diagnoses Malignant neoplasm of prostate (HCC) Procedures LA LEUPROLIDE ACETATE SUSPNSION Ezio Llamas PA-C [address] [facility] [place] [address] Urology [facility] [address] [facility] [place] [address] Referral ID Status Reason Start Date Expiration Date V isits Requested Visits Authorized [id number] Authorized Precert 07/12/2021 03/26/2099 99 99 Encounter Details Date Type Department Care Team (Late st Contact Info) Description 09/13/2023 10:15 AM EDT Office Visit Urology, [facility] [address] [facility] [place] [address] Zeus Davidson MD [address] [facility] [address] [place] [address] Prostate cancer (HCC)* Allergies No known active allergiesdocumented as of this encounter (statuses as of 09/13/2023) Medications Medication Sig Dispensed Refills Start Date [...] TWICE DAILY 180 Tablet 3 06/27/2023 Active Hospital, Clinic, or Other Facility Administered Medication Ordered Dose Route Frequency Start Date End Date Status Leuprolide Acetate (6 Month) (Lupron) inj 45 mgIndications:Prostate cancer (HCC) 45 mg IM ONCE 09/13/2023 09/13/2023 Active documented as of this encounter (statuses as of 09/13/2023) Active Problems Problem Noted Date Diagnosed Date [...] 3 04/01/2019 Atherosclerotic heart diseas e of [place] coronary artery without angina pectoris 04/01/2019 Secondary [...] 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 Overview: ICD-10 update of inactive term documented as of this encounter (statuses as of 09/13/2023) Resolved Problems Problem Noted Date Diagnosed Date Resolved Date Prediabetes 06/01/2020 11/10/2020 Overview: Per Prediabetes protocol Idioventricular rhythm 11/13/201811/15 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 CONTACT: Ziyad Neely, Field Support Technician Chronic rhinitis 01/18/2010 08/15/2014 Elevated prostate specific antigen (PSA) 01/16/2002 03/26/2018 Benign prostatic hyperplasia 01/09/2002 03/26/2018 Overview: ICD-10 update of inactive term ICD-10 update of inactive term Anticoagulation management encounter 10/12/2001 03/26/2018 Open wound of forearm 09/01/20002017 Atrial fibrillation 09/25/1995 03/26/20 18 Dyslipidemia, goal to be determined 03/01/2013 documented as of this encounter (statuses as of 09/13/2023) Immunizations Name Administration Dates Next Due COVID-19 mRNA, LNP-s, No Pre serve, 2-Dose Series (Moderna) 05/29/2020,05/01/2020 COVID-19, mRNA, LNP-s, PF, B ooster, 100mcg/0.5mg (Moderna) 02/06/2021 Covid-19, Mrna, Lnp-s, Pf, B ivalent, 30 Mcg, IM, 12 yrs and above (H2HCare) 04/17/2022 Pneumococcal Conjugate Vacc, 13 Valent (Prevnar) [...] as of this encounter Progress Notes * Zeus Davidson MD - 09/13/2023 10:15 AM EDT [id number] PCP: DOT HUTCHINSON [address] [place] [address] [phone] Macario Oliver is a 88 year old male, who presents for six-month follow-up of his history of recurrent prostate cancer. Patient's past notes reviewed. 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 He is due for six-month Lupron today. Patient's PSA remains undetectable associated with his androgen deprivation. Prostate Cancer: S/p brachytherapy in 2003 in [place], [place] 3+3. On continuous Lupron since 2017 for metastatic recurrence (pelvic sidewall and lung). PSA Results: Lab Results Component Value Date/Time PSA - [facility] <0.02 08/31/2023 09:12 AM PSA - [facility] <0.02 02/15/2023 08:57 AM PSA - [facility] <0.02 08/04/2022 08:37 AM PSA - [facility] 0.75 07/11/2016 09:42 AM PSA - [facility] 12.16 (H) 04/13/2016 08:59 AM PSA - [facility] 0.50 09/20/2011 11:00 AM PSA SCREENING 2.16 04/30/2013 08:48 AM PSA SCREENING 0.05 01/12/2010 10:44 AM PSA SCREENING RESULTS RECHECKED 01/12/2010 10:44 AM PSA-OUTSIDE LAB 0.265 12/28/2016 12:00 AM PSA-OUTSIDE LAB 0.329 10/28/2016 12:00 AM Current Outpatient Medications Medication Sig Dispense Refill [...] BY MOUTH TWICE DAILY 180 Tablet 3 No current facility-administered medications for this visit. Review of patient's allergies indicates: No Known Allergies Social History: Social History Tobacco Use Smoking status: Never Smokeless tobacco: Never Substance Use Topics Alcohol use: No Vaping/E-Cigarette Use Vaping/E-Cigarette Use Never User Vaping/E-Cigarette Substances Vaping/E-Cigarette Devices Family History Problem Relation Name Age of Onset Cancer Father colon Mental Disorder Father nervous breakdown Past Surgical History: Procedure Laterality Date ARTHROPLASTY KNEE TOTAL Left 10/22/2019 ROBOTIC ARTHROPLASTY KNEE TOTAL performed by Sammy Higgins DO at OR [facility] COLONOSCOPY 05/2007 [place] normal/ repeat in 2012 COLONOSCOPY, DIAGNOSTIC (RECTUM) 03/29 [place]- a few divertics. No polyps. repeat [id number] CORONARY ANGIOGRAPHY W/LEFT HEART CATH N/A 09/12/2018 CORONARY ANGIOGRAPHY W/LEFT HEART CATH performed by Naseem Vines MD at [facility] INFORMATION 06/26/[address]DANELLA LEZAMA INSERT/REPLACE PACEMAKER,ATRIAL/VENTRICULAR Left 11/14/2018 NEW DDD PACEMAKER IMPLANT performed by Brianna Phillip MD at [facility] NEEDLE/PUNCH BIOPSY OF PROSTATE 03/10/03 Prostate,Needle/Punch Biopsy REMOVAL OF TONSILS, UNDER AGE 12 Tonsils Removal,<12 Y/O REPLACE AORTIC VALVE, PERCUTANEOUS FEMORAL Bilateral 11/06/2018 REPLACE AORTIC VALVE, PERCUTANEOUS FEMORAL performed by Naseem Vines MD at [facility] REPLACE AORTIC VALVE, PERCUTANEOUS FEMORAL Bilateral 11/06/2018 REPLACE AORTIC VALVE, PERCUTANEOUS FEMORAL performed by Sammy Carrasco MD at [facility] SIGMOIDOSCOPY, DIAGNOSTIC 1996 Past Medical History: Diagnosis Date Atrial fibrillation (HCC) Dyslipidemia, goal to be determined Malignant neoplasm of prostate (HCC) Prostate Adenocarcinoma [place] 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 Constitutional: General: He is not in acute distress. Appearance: Normal appearance. He is not ill-appearing or toxic-appearing. HENT: Head: Normocephalic and atraumatic. Right Ear: External ear normal. Left Ear: External ear normal. Nose: Nose normal. Mouth/Throat: Mouth: Mucous membranes are moist. Eyes: Extraocular Movements: Extraocular movements intact. Cardiovascular: Pulses: Normal pulses. Pulmonary: Effort: Pulmonary effort is normal. No respiratory distress. Abdominal: Palpations: Abdomen is soft. Tenderness: There is no abdominal tenderness. Musculoskeletal: Cervical back: Normal range of motion and neck supple. Lymphadenopathy: Cervical: No cervical adenopathy. Skin: Coloration: Skin is not cyanotic or pale. Neurological: Mental Status: He is alert and oriented to person, place, and time. Psychiatric: Attention and Perception: Attention normal. Mood and Affect: Mood and affect normal. 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 We are pleased with results. Seen stability over time, will move out to yearly provider visits, Q6 months nursing visits with Lupron. Contact us sooner PRN issues. PSA yearly. Above content is personally reviewed. Patient vocalizes good understanding of the treatment plan. Zeus Davidson MD 7:51 AM 09/13/2023 documented in this encounter Nursing Notes * Katherine Parks LPN - 09/13/2023 10:18 AM EDT 6 month ret CAP 6 month lupron given 03/07/23 PSA Results: Lab Results Component Value Date/Time PSA - [facility] <0.02 08/31/2023 09:12 AM PSA - [facility] <0.02 02/15/2023 08:57 AM PSA - [facility] <0.02 08/04/2022 08:37 AM PSA - [facility] 0.75 07/11/2016 09:42 AM PSA - [facility] 12.16 (H) 04/13/2016 08:59 AM PSA - [facility] 0.50 09/20/2011 11:00 AM PSA SCREENING 2.16 04/30/2013 08:48 AM PSA SCREENING 0.05 01/12/2010 10:44 AM PSA SCREENING RESULTS RECHECKED 01/12/2010 10:44 AM PSA-OUTSIDE LAB 0.265 12/28/2016 12:00 AM PSA-OUTSIDE LAB 0.329 10/28/2016 12:00 AM No concerns documented in this encounter Plan of Treatment Upcoming Encounters Date Type Department Care Team (Late st Contact Info) Description 10/05/2023 7:30 AM EDT Anticoagulation Pharmacy, [place] [address] [place] [address] [facility] [place] [place] [address] Scheduled Orders Name Type Priority Associated Diagnoses Orde r Schedule PSA Lab Routine Prostate cancer (HCC) Expected: 08/19/2024 (Approximate), Expires: 09/12/2024 Health Maintenance Due Date Last Done Comments Zoster Vaccines (2 of 2) 12/12/2017 10/17/2017, 09/26 Depression Screening 07/08/2021 07/08/2020 COVID-19 Vaccine ( season) 2022 04/17/2022, 02/06/2021, 05/29/2020, Additional history exists Albumin/Creatinine Ratio 12/21/20222 022, 10/11/2019, 05/22/2018 CKD HGB USE SMARTSET 22953 12/30/202312/29, 12/21/2021, 10/15/2020, Additional history exists CKD PHOS USE SMARTSET 06300 12/30/20230 07/2022, 12/21/2021, 09/12/2018, Additional history exists HbA1c 12/30/2023 12/29/2022, 040 07/2022, 12/21/2021, Additional history exists DTaP,Tdap,and Td Vaccines (3 - Td or Tdap) 06/29/2032 06/29/2022, 09/20/2012, 12/30/2002 Pneumococcal Vaccine: 65+ Years Completed 08/28/2014, 09/20/2011, 01/09/2002 Influenza Vaccine (FLU shot) Completed , 12/07/2022, 12/28/2021, Additional history exists GARDASIL-HPV IMMUNIZATION SERIES Aged Out No longer eligible based on patient's age to complete this topic Hepatitis B Aged Out No longer eligi ble based on patient's age to complete this topic MENINGOCOCCAL (MENACTRA/MENVEO) Aged Out No longer eligible based on patient's age to complete this topic documented as of this encounter Medical Devices Implanted Type Area Steam Drier Tender Device Identifier Shelf Expiration Date Model / Serial / Lot Baseplate #6 Tritanium - [id number] Implanted:Qty: 1 on 10/22/2019 by Sammy Higgins DO at OR [facility] Left: Knee LISSET : ORTHOPAEDICS 07/23/2024 5536-B-600 / / [id number] Knee Triathlon Bead No Cuong L 6 - [id number] Implanted:Qty: 1 on 10/22/2019 by Sammy Higgins DO at OR [facility] Left: Knee LISSET : ORTHOPAEDICS 07/09/2024 5517-F-601 / / [id number] Patella Symmetric S33mm 9mm - [id number] Implanted:Qty: 1 on 10/22/2019 by Sammy Higgins DO at OR [facility] Left: Knee LISSET : ORTHOPAEDICS 10/29/2023 5556-L-339 / / [id number] Triathlon X3 Tibial Bearing Insert Cs Ramirez 6 Typ Cs Thkns 10mm Implanted:Qty: 1 on 10/22/2019 by Sammy Higgins DO at OR [facility] Left: Knee 01/07/2024 5531-G-610 -E / / [id number] documented as of this encounter Visit Diagnoses Diagnosis Prostate cancer (HCC)- Primary Malignant neoplasm of prostate documented in this encounter Advance Directives Documents on File Type Date Recorded Patient Agent Contract Clerk Expl anation Advance Directives and Zac Morelos 05/25/2017 LIVING WILL Power of Thermal Cutter Helper 05/25/2017 POWER OF A TTORNEY * Full [...] and were consensually agreed upon. Care Teams Lifestyle Coordinator Relationship Specialty Start Date End Date Dot Hutchinson MD [address] [place] [address] PCP - General 03/28/1997 documented as of this encounter
--- OUTSIDE RECORDS SUMMARY | 2024-01-26 18:51 | External Medical Summary | Summary of Care ---
Author Name Unknown Organization [facility] Address [address] [facility] [place] [address] Phone [phone] Care Team Providers Care Vp Global Name Role Phone Heron Hutchinson MD Primary Care Provider [phone] Encounter Details Date Type Department Care Team (Late st Contact Info) Description 10/04/2023 Result Scan Unspecified Department Diego George MD [address] [place] [address] <No scans attached> Allergies No known active allergiesdocumented as of this encounter (statuses as of 10/04/2023) Medications Medication Sig Dispensed Refills Start Date [...] as of this encounter (statuses as of 10/04/2023) Active Problems Problem Noted Date Diagnosed Date [...] 3 04/01/2019 Atherosclerotic heart diseas e of [place] coronary artery without angina pectoris 04/01/2019 [...] 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 Overview: ICD-10 update of inactive term documented as of this encounter (statuses as of 10/04/2023) Resolved Problems Problem Noted Date Diagnosed Date Resolved Date Prediabetes 06/01/2020 11/10/2020 Overview: Per Prediabetes protocol Idioventricular rhythm 11/13/201811/15 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 CONTACT: Ziyad Neely, Food And Drink Factory Workers Chronic rhinitis 01/18/2010 08/15/2014 Elevated prostate specific antigen (PSA) 01/16/2002 03/26/2018 Benign prostatic hyperplasia 01/09/2002 03/26/2018 Overview: ICD-10 update of inactive term ICD-10 update of inactive term Anticoagulation management encounter 10/12/2001 03/26/2018 Open wound of forearm 09/01/20002017 Atrial fibrillation 09/25/1995 03/26/20 18 Dyslipidemia, goal to be determined 03/01/2013 documented as of this encounter (statuses as of 10/04/2023) Immunizations Name Administration Dates Next Due COVID-19 [...] Description 10/05/2023 7:30 AM EDT Anticoagulation Pharmacy, [place] [address] [facility] [place] [address] [place], [facility] [address] [facility] [place] [address] 09/17/2024 10:15 AM EDT Office Visit Urology, [facility] [address] [facility] [place] [address] Zeus Davidson MD [address] [place] [address] Health Maintenance Due Date Last Done Comments Zoster Vaccines (2 of 2) 12/12/2017 10/17/2017, 09/26 Depression Screening 07/08/2021 07/08/2020 COVID-19 Vaccine ( season) 2022 04/17/2022, 02/06/2021, 05/29/2020, Additional history exists Albumin/Creatinine Ratio 12/21/20222 022, 10/11/2019, 05/22/2018 Influenza Vaccine (FLU shot) (#1) 2023 02/18/2023, 12/07/2022, 12/28/2021, Additional history exists CKD HGB USE SMARTSET 56122 12/30/202312/29, 12/21/2021, 10/15/2020, Additional history exists CKD PHOS USE SMARTSET 07605 12/30/2023 10/0 07/2022, 12/21/2021, 09/12/2018, Additional history [...] this encounter Medical Devices Implanted Type Area Stringing Machine Tender Device Identifier Shelf Expiration Date Model / Serial / Lot Baseplate #6 Tritanium - [id number] Implanted:Qty: 1 on 10/22/2019 by Sammy Higgins DO at OR [facility] Left: Knee LISSET : ORTHOPAEDICS 07/23/2024 5536-B-600 / / [id number] Knee Triathlon Bead No Cuong L 6 - [id number] Implanted:Qty: 1 on 10/22/2019 by Sammy Higgins DO at OR [facility] Left: Knee LISSET : ORTHOPAEDICS 07/09/2024 5517-F-601 / / [id number] Patella Symmetric S33mm 9mm - [id number] Implanted:Qty: 1 on 10/22/2019 by Sammy Higgins DO at OR [facility] Left: Knee LISSET : ORTHOPAEDICS 10/29/2023 5556-L-339 / / [id number] Triathlon X3 Tibial Bearing Insert Cs Ramirez 6 Typ Cs Thkns 10mm Implanted:Qty: 1 on 10/22/2019 by Sammy Higgins DO at OR [facility] Left: Knee 01/07/2024 5531-G-610 -E / / [id number] documented as of this encounter Procedures Procedure Name Priority Date/Time Associated Diagnosis Comments CARDIOLOGY SCANNED RESULT 10/04/2023 documented in this encounter Results * CARDIOLOGY SCANNED RESULT (10/04/2023) 10/04/2023 Diego George MD OTHER documented in this encounter Advance Directives Documents on File Type Date Recorded Patient Heading Pinner Expl anation Advance Directives and Livin g Will 05/25/2017 LIVING WILL Power of Phonograph Needle Tip Maker 05/25/2017 POWER OF A TTORNEY * Full [...] and were consensually agreed upon. Care Teams Vp Global Relationship Specialty Start Date End Date Heron Hutchinson MD [address] [place] [address] PCP - General 03/28/1997 documented as of this encounter
--- OUTSIDE RECORDS SUMMARY | 2024-01-26 18:51 | External Medical Summary ---
Author Name Unknown Address Unknown Organization K01:[facility] [place] - [address] [place] [address] [place] [address] Laboratory Report Ordering Provider Test Date Status LEON HELLER 12/15/2023 14:23:05 Final Observation Date Value Abnormality Reference (Units ) Status TSH 12/15/2023 14:23:05 1.71 0.27-4.20 (uIU/mL) Final Performing Location [facility] [place] - [address] [place] [address]
--- OUTSIDE RECORDS SUMMARY | 2024-01-26 18:51 | External Medical Summary | Summary of Care ---
Author Name Unknown Organization [facility] Address [address] [facility] [place] [address] Phone [phone] Care Team Providers Care Epic Radiant Analyst Name Role Phone Dot Hutchinson MD Primary Care Provider [phone] Reason for Visit * Reason Comments Follow Up * Precert (Within 30 days (routine)) - Authorized Specialty Diagnoses / Procedures Referred By Contac t Referred To Contact Urology Diagnoses Malignant neoplasm of prostate (HCC) Procedures LA LEUPROLIDE ACETATE SUSPNSION Ezio Llamas PA-C [address] [facility] [place] [address] Urology [facility] [address] [facility] [place] [address] Referral ID Status Reason Start Date Expiration Date V isits Requested Visits Authorized [id number] Authorized Precert 07/12/2021 03/26/2099 99 99 Encounter Details Date Type Department Care Team (Late st Contact Info) Description 09/13/2023 10:15 AM EDT Office Visit Urology, [facility] [address] [facility] [place] [address] Zeus Davidson MD [address] [facility] [address] [place] [address] Prostate cancer (HCC)* Allergies No known [...] (HCC) 45 mg IM ONCE 09/13/2023 09/13/2023 Ended documented as of this encounter (statuses as [...] Atherosclerotic heart diseas e of [place] coronary artery without angina pectoris 04/01/2019 Secondary [...] URI with cough 08/15/2014 018 ORBIT-AF Research Other*[id number] 07/12/2010 07/12/2013 Overview: PROJECT: #[id number], SPONSOR: Owen, PI: Ezio Johnson MD SUMMARY: [...] encounter can be closed. CONTACT: Ziyad Neely, Highway Maintenance Supervisor Chronic rhinitis 01/18/2010 08/15/2014 Elevated prostate specific [...] 30 Mcg, IM, 12 yrs and above (Care.com) 04/17/2022 Pneumococcal Conjugate Vacc, 13 Valent (Prevnar) 08/28/2014 Pneumococcal Polysaccharide PPV23 (Pneumovax) 09/20/2011,01/09/2002 Season Influenza, Cell Cultu re, 18+ Yrs, With Preserv (Flucelvax) 04/02/2013 Season Influenza, Quad, PF, Adjuvanted, 65+ Yrs, IM (FLUAD) 02/18/2023 Seasonal Influenza, PF, 6 M & above, IM , (FluLaval or Fluzone) 12/25/2019,01/22/2019,03/26/2018 Seasonal Influenza, Quadriva lent Hd (Fluzone Hd) 12/07/2022,12/28/2021,12/04/2020 Seasonal Influenza, Quadriva lent, No Preserve, IM 01/22/2019,02/23/2015 Seasonal Influenza, Split, I IV3, With Preserve, Inj 12/17/2016,12/16/2015,04/30/2014,03/22,03/17/2011,01/14/2010,02/25/2009 ,04/18/2008,01/13/2005,02/25/2003,12/25,03/08/2001,03/07/2000 TD - Tetanus/Diptheria (ADULT) 12/30/2002 [...] Davidson MD - 09/13/2023 10:15 AM EDT [id number] PCP: DOT HUTCHINSON [address] [place] [address] Macario Oliver is a 88 year old male, who presents for six-month follow-up of his history of recurrent prostate cancer. Patient's past notes reviewed. 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 He is due for six-month Lupron today. Patient's PSA remains undetectable associated with his androgen deprivation. Prostate Cancer: S/p brachytherapy in 2004 in [place], [place] 3+3. On continuous Lupron since 2017 for [...] performed by Sammy Higgins DO at OR [facility] COLONOSCOPY 05/2007 [place] normal/ repeat in 2012 COLONOSCOPY, DIAGNOSTIC (RECTUM) 03/29 [place]- a few divertics. No polyps. repeat 3933-0915 CORONARY ANGIOGRAPHY W/LEFT HEART CATH N/A 09/12/2018 CORONARY ANGIOGRAPHY W/LEFT HEART CATH performed by Naseem Vines MD at [facility] INFORMATION 06/26/[address]DANELLA [place] INSERT/REPLACE PACEMAKER,ATRIAL/VENTRICULAR Left 11/14/2018 NEW DDD PACEMAKER IMPLANT performed by Brianna Phillip MD at [facility] [place] NEEDLE/PUNCH BIOPSY OF PROSTATE 03/10/03 Prostate,Needle/Punch Biopsy REMOVAL OF TONSILS, UNDER AGE 12 Tonsils Removal,<12 Y/O REPLACE AORTIC VALVE, PERCUTANEOUS FEMORAL Bilateral 11/06/2018 REPLACE AORTIC VALVE, PERCUTANEOUS FEMORAL performed by Naseem Vines MD at [facility] [place] REPLACE AORTIC VALVE, PERCUTANEOUS FEMORAL Bilateral 11/06/2018 REPLACE AORTIC VALVE, PERCUTANEOUS FEMORAL performed by Sammy Carrasco MD at [facility] [place] SIGMOIDOSCOPY, DIAGNOSTIC 1996 Past Medical History: Diagnosis Date Atrial fibrillation (HCC) Dyslipidemia, goal to be determined Malignant neoplasm of prostate (HCC) Prostate Adenocarcinoma [place] 3+3=6 Sleep apnea Patient Active Problem List Diagnosis Moderate obstructive sleep apnea 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 ADVANCE DIRECTIVE INFORMATION OBESITY, BMI= 33.09 06/08/10 Vitamin D deficiency Dyslipidemia, goal LDL below 100 Chronic rhinitis Chronic atrial fibrillation (HCC) Aortic valve stenosis Metastatic carcinoma to lung, unspecified laterality (HCC) 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 Patient tolerated well. * Katherine Parks LPN - 09/13/2023 10:18 [...] Description 10/05/2023 7:30 AM EDT Anticoagulation Pharmacy, [place] [address] [place] [address] [facility] [address] [place] [address] 09/17/2024 10:15 AM EDT Office Visit Urology, [facility] [address] [facility] [place] [address] Zeus Davidson MD [address] [facility] [address] [place] [address] Scheduled Orders Name Type Priority Associated Diagnoses Orde r Schedule PSA Lab Routine Prostate cancer (HCC) Expected: 08/19/2024 (Approximate), Expires: 09/12/2024 Health Maintenance Due Date Last Done Comments Zoster Vaccines (2 of 2) 12/12/2017 10/17/2017, 09/26 Depression Screening 07/08/2021 07/08/2020 COVID-19 Vaccine ( season) 2022 04/17/2022, 02/06/2021, 05/29/2020, Additional history exists Albumin/Creatinine Ratio 12/21/2022 022, 10/11/2019, 05/22/2018 CKD HGB USE SMARTSET 48419 12/30/202312/29, 12/21/2021, 10/15/2020, Additional history exists CKD PHOS USE SMARTSET 73331 12/30/202307/2022, 12/21/2021, 09/12/2018, Additional history exists HbA1c [...] this encounter Medical Devices Implanted Type Area Facsimile Machine Operator Device Identifier Shelf Expiration Date Model / Serial / Lot Baseplate #6 Tritanium - [id number] Implanted:Qty: 1 on 10/22/2019 by Sammy Higgins DO at OR [facility] Left: Knee LISSET : ORTHOPAEDICS 07/23/2024 5536-B-600 / / [id number] Knee Triathlon Bead No Cuong L 6 - [id number] Implanted:Qty: 1 on 10/22/2019 by Sammy Higgins, DO at OR [facility] Left: Knee LISSET : ORTHOPAEDICS 07/09/2024 5517-F-601 / / [id number] Patella Symmetric S33mm 9mm - [id number] Implanted:Qty: 1 on 10/22/2019 by Sammy Higgins, DO at OR [facility] Left: Knee LISSET : ORTHOPAEDICS 10/29/2023 5556-L-339 / / [id number] Triathlon X3 Tibial Bearing Insert Cs Ramirez 6 Typ Cs Thkns 10mm Implanted:Qty: 1 on 10/22/2019 by Sammy Higgins, DO at OR [facility] Left: Knee 01/07/2024 5531-G-610 -E / / [id number] documented as of this encounter Visit Diagnoses Diagnosis Prostate cancer (HCC)- Primary Malignant neoplasm of prostate documented in this encounter Administered Medications Inactive Administered Medications - up to 3 most recent administrations Medication Order MAR Action Action Date Dose Rate Site Leuprolide Acetate (6 Month) (Lupron) inj 45 mg 45 mg, Intramuscular, ONCE, On Mon09/13/23 at 1115, For 1 dose Given 09/13/2023 10:48 AM EDT 45 mg Ventrogluteal Left documented in this encounter Advance Directives Documents on File Type Date Recorded Patient Central Processing Tech Expl anation Advance Directives and Livin g Will 05/25/2017 LIVING WILL Power of Gin Pole Operator 05/25/2017 POWER OF A TTORNEY * [...] and were consensually agreed upon. Care Teams Epic Radiant Analyst Relationship Specialty Start Date End Date Dot Hutchinson MD [address] [facility] [place] [address] PCP - General 03/28/1997 documented as of this encounter
--- OUTSIDE RECORDS SUMMARY | 2024-01-26 18:51 | External Medical Summary ---
Author Name Unknown Address Unknown Organization : Laboratory Report Ordering Provider Test Date Status ALLA NEWBERRY 11/13/2023 07:33:58 Final Therapeutic ranges for non-o perative patients:
Prophylaxsis/treatment of DVT: (Range:2.0-3.0)
Treatment of pulmonary embolism:(Range:2.0-3.0)
Prevention of systemic embolism from:
-tissue heart valves
-acute myocardial infarction
-valvular heart disease
-atrial fibrillation
(Range: 2.0-3.0)
Mechanical prosthetic valves: (Range: 2.5-3.5) Observation Date Value Abnormality Reference (Units ) Status INR in Capillary blood by Coagulation assay 11/13/2023 07:33:58 3.3 (INR) Final Performing Location
--- OUTSIDE RECORDS SUMMARY | 2024-01-26 18:51 | External Medical Summary | Summary of Care ---
Author Name Unknown Organization [facility] Address [address] [facility] [place] [address] Phone [phone] Care Team Providers Care Unemployment Inspector Name Role Phone Heron Hutchinson MD Primary Care Provider [phone] Reason for Visit * Reason Comments Dosage Adjustment In Person (Anticoag Cl inic) Encounter Details Date Type Department Care Team (Latest Contact Info) Description 10/05/2023 7:30 AM EDT Anticoagulation Pharmacy, [address] [address] [facility] [address] [place] [address] Chronic atrial fibrillation (HCC)*; S/P TAVR (transcatheter aortic valve replacement); Anticoagulation management encounter; 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 Allergies No known active allergiesdocumented as of this encounter (statuses as of 10/05/2023) Medications Medication Sig Dispensed Refills Start Date [...] as of this encounter (statuses as of 10/05/2023) Active Problems Problem Noted Date Diagnosed Date [...] 3 04/01/2019 Atherosclerotic heart diseas e of [place] coronary artery without angina pectoris 04/01/2019 Secondary [...] BIPAP Plus set at 12 cwp AHP 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 Overview: ICD-10 update of inactive term documented as of this encounter (statuses as of 10/05/2023) Resolved Problems Problem Noted Date Diagnosed Date Resolved Date Prediabetes 06/01/2020 11/10/2020 Overview: Per Prediabetes protocol Idioventricular rhythm 11/13/201811/15 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 CONTACT: Ziyad Neely, Medical Instrument Technician Chronic rhinitis 01/18/2010 08/15/2014 Elevated prostate specific antigen (PSA) 01/16/2002 03/26/2018 Benign prostatic hyperplasia 01/09/2002 03/26/2018 Overview: ICD-10 update of inactive term ICD-10 update of inactive term Anticoagulation management encounter 10/12/2001 03/26/2018 Open wound of forearm 09/01/20002017 Atrial fibrillation 09/25/1995 03/26/20 18 Dyslipidemia, goal to be determined 03/01/2013 documented as of this encounter (statuses as of 10/05/2023) Immunizations Name Administration Dates Next Due COVID-19 [...] this encounter Progress Notes * Taty Marte RPh - 10/05/2023 7:34 AM EDT Images from the original note were not included. Medication Therapy Disease Management - Anticoagulation Patient: Macario Oliver | : 1935 Subjective Patient-Reported Symptoms: Patient Findings Positives: Change in activity (less lately) Negatives: Signs/symptoms of thrombosis, Signs/symptoms of bleeding, Change in health, Change in alcohol use, Upcoming invasive procedure, Missed doses, Extra doses, Change in medications, Change in diet/appetite, Bruising Objective Current Warfarin Dose As of 10/05/2023 Warfarin maintenance plan: 7.5 mg (5 mg x 1.5) every Mon, Wed, Fri; 5 mg (5 mg x 1) all other days INR Result As of 10/05/2023 INR goal: 2.0-3.0 INR used for dosin.8 (10/05/2023) Assessment & Plan Warfarin Plan As of 10/05/2023 Full warfarin instructions: 10/04: Hold; Otherwise 7.5 mg every Mon, Wed, Fri; 5 mg all other days Next INR check: 11/13/2023 Repeat PT/INR in 6 week(s) Weekly dose: not changed Additional Dosing Information: Taty Marte RPh Clinical Pharmacist 10/05/2023, 7:34 AM documented in this encounter Plan of Treatment Upcoming Encounters Date Type Department Care Team (Late st Contact Info) Description 11/13/2023 7:30 AM EDT [facility] Pharm[facility], [place] [address] [facility] [address] [facility] [address] [facility] [place] [address] 09/17/2024 10:15 AM EDT Office Visit Urology, [facility] [address] [facility] [place] [address] Zeus Davidson MD [address] [place] [address] Health Maintenance Due Date Last Done Comments Zoster Vaccines (2 of 2) 12/12/2017 10/17/2017, 09/26 Depression Screening 07/08/2021 07/08/2020 COVID-19 Vaccine ( season) 2022 04/17/2022, 02/06/2021, 05/29/2020, Additional history exists Albumin/Creatinine Ratio 12/21/2022 022, 10/11/2019, 05/22/2018 Influenza Vaccine (FLU shot) (#1) 2023 02/18/2023, 12/07/2022, 12/28/2021, Additional history exists CKD HGB USE SMARTSET 65718 12/30/202312/29, 12/21/2021, 10/15/2020, Additional history exists CKD PHOS USE SMARTSET 32569 12/30/20230 07/2022, 12/21/2021, 09/12/2018, Additional history exists [...] this encounter Medical Devices Implanted Type Area Correction Officer Device Identifier Shelf Expiration Date Model / Serial / Lot Baseplate #6 Tritanium - [id number] Implanted:Qty: 1 on 10/22/2019 by Sammy Higgins DO at OR [facility] Left: Knee LISSET : ORTHOPAEDICS 07/23/2024 5536-B-600 / / [id number] Knee Triathlon Bead No Cuong L 6 - [id number] Implanted:Qty: 1 on 10/22/2019 by Sammy Higgins DO at OR [facility] Left: Knee LISSET : ORTHOPAEDICS 07/09/2024 5517-F-601 / / [id number] Patella Symmetric S33mm 9mm - [id number] Implanted:Qty: 1 on 10/22/2019 by Sammy Higgins DO at OR [facility] Left: Knee LISSET : ORTHOPAEDICS 10/29/2023 5556-L-339 / / [id number] Triathlon X3 Tibial Bearing Insert Cs Ramirez 6 Typ Cs Thkns 10mm Implanted:Qty: 1 on 10/22/2019 by Sammy Higgins DO at OR [facility] Left: Knee 01/07/2024 5531-G-610 -E / / [id number] documented as of this encounter Procedures Procedure Name Priority Date/Time Associated Diagnosis Comments INR FINGERSTICK, POINT OF CARE STAT 10/05/2023 7:34 AM EDT Chronic atrial fibrillation (HCC) S/P TAVR (transcatheter aortic valve replacement) Anticoagulation management encounter prison current use of 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 documented in this encounter Results * INR FINGERSTICK, POINT OF CARE (10/05/2023 7:34 AM EDT) Fingerstick INR 3.8 INR 7:37 AM EDT [facility] [place] [facility]- Blood 10/05/2023 7:34 AM EDT 10/05/2023 7:37 AM EDT Narrative [facility] [place] [facility]- - 10/05/2023 7:37 AM EDT Therapeutic ranges for non-operative patients: Prophylaxsis/treatment of DVT: (Range:2.0-3.0) Treatment of pulmonary embolism:(Range:2.0-3.0) Prevention of systemic embolism from: -tissue heart valves -acute myocardial infarction -valvular heart disease -atrial fibrillation (Range: 2.0-3.0) Mechanical prosthetic valves: (Range: 2.5-3.5) Taty Marte [facility] POINT OF CARE TEST DOCKED DEVICE UNSOLICITED RESULTS [facility] [address] [place] [phone] documented in this encounter Visit Diagnoses Diagnosis Chronic atrial fibrillation (HCC)- Primary Atrial fibrillation S/P TAVR (transcatheter aortic valve replacement) Heart valve replaced by other means Anticoagulation management encounter Encounter for therapeutic drug monitoring 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 Care Teams Unemployment Inspector Relationship Specialty Start Date End Date Heron Hutchinson MD [address] [place] [address] PCP - General 03/28/1997 documented as of this encounter"
--- OUTSIDE RECORDS SUMMARY | 2024-01-26 18:51 | External Medical Summary ---
Author Name Unknown Address Unknown Organization K01:[facility]ATORY [facility] - [address] [place] [address] Laboratory Report Ordering Provider Test Date Status LEON HELLER 12/15/2023 14:23:05 Final Observation Date Value Abnormality Reference (Units ) Status HbA1C 12/15/2023 14:23:05 5.6 4.0-5.6 (% ) Final The use of HbA1c to monitor glycemic status is based on normal hemoglobin and HbA composition. This test should not be used in patients with abnormal hemoglobin that affects the half life of the red blood cell or the in vivo glycation rates. Glucose, estimated average 12/15/2023 14:23:05 114 <126 (mg/dL) Final Performing Location [facility] - [address] [place] [address]
--- OUTSIDE RECORDS SUMMARY | 2024-01-26 18:51 | External Medical Summary ---
Author Name Unknown Address Unknown Organization K01:[facility] [place] [address] [facility] [place] [address] Laboratory Report Ordering Provider Test Date Status LEON HELLER 12/15/2023 14:23:05 Final Observation Date Value Abnormality Reference (Units ) Status BUN 12/15/2023 14:23:05 29 Above high normal 6-20 (mg/dL) Final Creatinine 12/15/2023 14:23:05 1.2 0.6-1.2 (mg/dL) Final Glomerular filtration rate/1.73 sq M.predicted [Volume Rate/Area] in Serum, Plasma or Blood by Creatinine-based formula (CKD-EPI) 12/15/2023 14:23:05 58 Below low normal >=60 (mL/min) Final eGFR is calculated based on the CKD-EPI 2020 equation. Sodium 12/15/2023 14:23:05 140 135-146 (m mol/L) Final Potassium 12/15/2023 14:23:05 4.4 3.5-5.1 (m mol/L) Final Cl 12/15/2023 14:23:05 104 98-107 (mm ol/L) Final CO2 12/15/2023 14:23:05 25 22-32 (mmo l/L) Final Anion gap 12/15/2023 14:23:05 11 7-15 (mmol /L) Final Glucose 12/15/2023 14:23:05 92 70-120 (mg /dL) Final Albumin 12/15/2023 14:23:05 4.4 3.8-5.0 (g /dL) Final AST (Aspartate aminotransferase) 12/15/2023 14:23:05 36 10-50 (U/L) Final Alk Phos 12/15/2023 14:23:05 77 35-130 (U/ L) Final Bilirubin, Total 12/15/2023 14:23:05 0.6 <=1 .2 (mg/dL) Final Calcium 12/15/2023 14:23:05 9.2 8.4-10.2 ( mg/dL) Final Protein 12/15/2023 14:23:05 6.5 6.0-8.3 (g /dL) Final ALT (Alanine aminotransferase) 12/15/2023 14:23:05 22 10-50 (U/L) Final Performing Location [facility] [place] [facility] [address] [facility] [address]
--- OUTSIDE RECORDS SUMMARY | 2024-01-26 18:51 | External Medical Summary | Summary of Care ---
Author Name Unknown Organization [facility] Address [address] [facility] [place] [address] Phone [phone] Care Team Providers Care Reed Or Wind Instrument Repairer Name Role Phone Dot Hutchinson MD Primary Care Provider [phone] Reason for Visit * Reason Comments Follow Up * Precert (Within 30 days (routine)) - Authorized Specialty Diagnoses / Procedures Referred By Contac t Referred To Contact Urology Diagnoses Malignant neoplasm of prostate (HCC) Procedures WI LEUPROLIDE ACETATE SUSPNSION Ezio Llamas PA-C [address] [facility] [place] [address] Urology [facility] [address] [facility] [place] [address] Referral ID Status Reason Start Date Expiration Date V isits Requested Visits Authorized [id number] Authorized Precert 07/12/2021 03/26/2099 99 99 Encounter Details Date Type Department Care Team (Late st Contact Info) Description 09/13/2023 10:15 AM EDT Office Visit Urology, [facility] [address] [facility] [place] [address] Zeus Davidson MD [address] [facility] [address] [place] [address] Prostate cancer (HCC)* [...] 3 04/01/2019 Atherosclerotic heart diseas e of [place] coronary artery without angina pectoris 04/01/2019 Secondary [...] URI with cough 08/15/2014 018 ORBIT-[employer] Research Other*[id number] 07/12/2010 07/12/2013 Overview: PROJECT: #[id number], SPONSOR: Owen, PI: Ezio Johnson MD SUMMARY: [...] encounter can be closed. CONTACT: Ziyad Neely, Concrete Mixer Operator Chronic rhinitis 01/18/2010 08/15/2014 Elevated prostate [...] 30 Mcg, IM, 12 yrs and above (AudioTrip) 04/17/2022 Pneumococcal Conjugate Vacc, 13 Valent (Prevnar) [...] Davidson MD - 09/13/2023 10:15 AM EDT [id number] PCP: DOT HUTCHINSON [address] [place] [address] Macario Oliver is a 88 year old male, who presents for six-month follow-up of his history of recurrent prostate cancer. Patient's past notes reviewed. 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 He is due for six-month Lupron today. Patient's PSA remains undetectable associated with his androgen deprivation. Prostate Cancer: S/p brachytherapy in 2004 in [place], [place] 3+3. On continuous Lupron since 2017 for [...] performed by Sammy Higgins DO at OR [facility] COLONOSCOPY 05/2007 [place] normal/ repeat in 2012 COLONOSCOPY, DIAGNOSTIC (RECTUM) 03/29 [place]- a few divertics. No polyps. repeat [id number] CORONARY ANGIOGRAPHY W/LEFT HEART CATH N/A 09/12/2018 CORONARY ANGIOGRAPHY W/LEFT HEART CATH performed by Naseem Vines MD at [facility] [place] INFORMATION 06/26/[address]DANELLA LEZAMA INSERT/REPLACE PACEMAKER,ATRIAL/VENTRICULAR Left 11/14/2018 NEW DDD PACEMAKER IMPLANT performed by Brianna Phillip MD at [facility] [place] NEEDLE/PUNCH BIOPSY OF PROSTATE 03/10/03 Prostate,Needle/Punch Biopsy REMOVAL OF TONSILS, UNDER AGE 12 Tonsils Removal,<12 Y/O REPLACE AORTIC VALVE, PERCUTANEOUS FEMORAL Bilateral 11/06/2018 REPLACE AORTIC VALVE, PERCUTANEOUS FEMORAL performed by Naseem Vines MD at [facility] [place] REPLACE AORTIC VALVE, PERCUTANEOUS FEMORAL Bilateral 11/06/2018 REPLACE AORTIC VALVE, PERCUTANEOUS FEMORAL performed by Sammy Carrasco MD at [facility] [place] SIGMOIDOSCOPY, DIAGNOSTIC 1996 Past Medical History: Diagnosis Date Atrial fibrillation (HCC) Dyslipidemia, goal to be determined Malignant neoplasm of prostate (HCC) Prostate Adenocarcinoma [place] 3+3=6 Sleep apnea Patient Active Problem List Diagnosis Moderate obstructive sleep apnea 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 ADVANCE DIRECTIVE INFORMATION OBESITY, BMI= 33.09 06/08/10 Vitamin D deficiency Dyslipidemia, goal LDL below 100 Chronic rhinitis Chronic atrial fibrillation (HCC) Aortic valve stenosis Metastatic carcinoma to lung, unspecified laterality (HCC) 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 Chronic diastolic congestive heart failure, NYHA class 3 (HCC) Atherosclerotic heart disease of [place] coronary artery without angina pectoris Secondary and [...] Description 10/05/2023 7:30 AM EDT Anticoagulation Pharmacy, [place] [address] [place] [facility] [place] [address] [facility] [address] [place] [address] 09/17/2024 10:15 AM EDT Office Visit Urology, [facility] [address] [facility] [place] [address] Zeus Davidson MD [address] [facility] [address] [place] [address] Scheduled Orders Name [...] 022, 10/11/2019, 05/22/2018 CKD HGB USE SMARTSET 04825 12/30/202312/29, 12/21/2021, 10/15/2020, Additional history exists CKD PHOS USE SMARTSET 70499 12/30/202307/2022, 12/21/2021, 09/12/2018, Additional history exists HbA1c [...] this encounter Medical Devices Implanted Type Area [facility] Center Director Device Identifier Shelf Expiration Date Model / Serial / Lot Baseplate #6 Tritanium - [id number] Implanted:Qty: 1 on 10/22/2019 by Sammy Higgins DO at OR [facility] Left: Knee LISSET : ORTHOPAEDICS 07/23/2024 5536-B-600 / / [id number] Knee Triathlon Bead No Cuong L 6 - [id number] Implanted:Qty: 1 on 10/22/2019 by Sammy Higgins, DO at OR [facility] Left: Knee LISSET : ORTHOPAEDICS 07/09/2024 5517-F-601 / / [id number] Patella Symmetric S33mm 9mm - [id number] Implanted:Qty: 1 on 10/22/2019 by Sammy Higgins, DO at OR [facility] Left: Knee LISSET : ORTHOPAEDICS 10/29/2023 5556-L-339 / / [id number] Triathlon X3 Tibial Bearing Insert Cs Ramirez 6 Typ Cs Thkns 10mm Implanted:Qty: 1 on 10/22/2019 by Sammy Higgins, DO at OR [facility] Left: Knee [...] File Type Date Recorded Patient Director Of Brand Marketing Expl anation Advance Directives and Livin g Will 05/25/2017 LIVING WILL Power of Oceanography Teacher 05/25/2017 POWER OF A TTORNEY * Full [...] and were consensually agreed upon. Care Teams Reed Or Wind Instrument Repairer Relationship Specialty Start Date End Date Dot Hutchinson MD [address] [facility] [place] [place] [address] PCP - General 03/28/1997 documented as of this encounter
--- OUTSIDE RECORDS SUMMARY | 2024-01-26 18:52 | External Medical Summary | Summary of Care ---
Author Name Unknown Organization [facility] Address [address] [facility] [place] [address] Phone [phone] Care Team Providers Care Culinary Instructor Name Role Phone Heron Hutchinson MD Primary Care Provider Reason for Visit * Reason Comments Outpatient Testing Encounter Details Date Type Department Care Team (Late st Contact Info) Description 08/31/2023 9:10 AM EDT Laboratory Laboratory, [place] [address] [place] [address] [place], [facility] [address] [place] [address] Prostate cancer (HCC) Allergies No known active allergiesdocumented as of this encounter (statuses as of 08/31/2023) Medications Medication Sig Dispensed Refills Start Date [...] as of this encounter (statuses as of 08/31/2023) Active Problems Problem Noted Date Diagnosed Date [...] 3 04/01/2019 Atherosclerotic heart diseas e of [place] coronary artery without angina pectoris 04/01/2019 Secondary [...] as of this encounter (statuses as of 08/31/2023) Resolved Problems Problem Noted Date Diagnosed Date Resolved Date Prediabetes 06/01/2020 11/10/2020 Overview: Per Prediabetes protocol Idioventricular rhythm 11/13/201811/15 Hypertensive kidney disease with chronic kidney disease stage III 09/24/2018 02/06/2020 Overview: Per CKD protocol Kidney disease, chronic, sta ge III (GFR 30-59 ml/min) 09/05/2017 10/04/2018 Overview: Per CKD protocol #1 Atrial fibrillation 09/01/2015 03/26/20 18 Viral URI with cough 08/15/2014 018 ORBIT-AF Research Other*[id number] 07/12/2010 07/12/2013 Overview: PROJECT: #[id number], SPONSOR: Andrei&Andrei, PI: Ezio Johnson MD SUMMARY: [...] encounter can be closed. CONTACT: Ziyad Neely, Accounts Receivable Representative Chronic rhinitis 01/18/2010 08/15/2014 Elevated prostate specific antigen (PSA) 01/16/2002 03/26/2018 Benign prostatic hyperplasia 01/09/2002 03/26/2018 Overview: ICD-10 update of inactive term ICD-10 update of inactive term Anticoagulation management encounter 10/12/2001 03/26/2018 Open wound of forearm 09/01/20002017 Atrial fibrillation 09/25/1995 03/26/20 18 Dyslipidemia, goal to be determined 03/01/2013 documented as of this encounter (statuses as of 08/31/2023) Immunizations Name Administration Dates Next Due COVID-19 [...] in the Last Year Never true 11/21/2018 Sex and Gender Information Value Date Recorded [...] 09/13/2023 10:15 AM EDT Office Visit Urology, [facility] [address] [facility] [place] [address] Zeus Davidson MD [address] [facility] [address] [place] [address] 10/05/2023 7:30 AM EDT Anticoagulation Pharmacy, [place] [address] [place] [address] [facility] [address] [place] [address] Pending Results Name Type Priority Associated Diagnoses Date /Time PSA Lab Routine Prostate cancer (HCC) 08/31/2023 9:12 AM EDT Health Maintenance Due Date Last Done Comments Zoster Vaccines (2 of 2) 12/12/2017 10/17/2017, 09/26 Depression Screening 07/08/2021 07/08/2020 COVID-19 Vaccine ( season) 2022 04/17/2022, 02/06/2021, 05/29/2020, Additional history exists Albumin/Creatinine Ratio 12/21/2022 022, 10/11/2019, 05/22/2018 CKD HGB USE SMARTSET 20555 12/30/202312/29, 12/21/2021, 10/15/2020, Additional history exists CKD PHOS USE SMARTSET 22870 12/30/2023 100 07/2022, 12/21/2021, 09/12/2018, Additional history [...] this encounter Medical Devices Implanted Type Area Director Auto Device Identifier Shelf Expiration Date Model / Serial / Lot Baseplate #6 Tritanium - [id number] Implanted:Qty: 1 on 10/22/2019 by Sammy Higgins, DO at OR [facility] Left: Knee LISSET : ORTHOPAEDICS 07/23/2024 5536-B-600 / / [id number] Knee Triathlon Bead No Cuong L 6 - [id number] Implanted:Qty: 1 on 10/22/2019 by Sammy Higgins, at OR [facility] Left: Knee LISSET : ORTHOPAEDICS 07/09/2024 5517-F-601 / / [id number] Patella Symmetric S33mm 9mm - [id number] Implanted:Qty: 1 on 10/22/2019 by Sammy Higgins, at OR [facility] Left: Knee LISSET : ORTHOPAEDICS 10/29/2023 5556-L-339 / / [id number] Triathlon X3 Tibial Bearing Insert Cs Ramirez 6 Typ Cs Thkns 10mm Implanted:Qty: 1 on 10/22/2019 by Sammy Higgins, at OR [facility] Left: Knee 01/07/2024 5531-G-610 -E / / [id number] documented as of this encounter Visit Diagnoses Diagnosis Prostate cancer (HCC) Malignant neoplasm of prostate documented in this encounter Advance Directives Documents on File Type Date Recorded Patient Shaker Repairer Expl anation Advance Directives and Livin g Will 05/25/2017 LIVING WILL Power of Rn Wound Care 05/25/2017 POWER OF A TTORNEY * Full [...] and were consensually agreed upon. Care Teams Culinary Instructor Relationship Specialty Start Date End Date Heron Hutchinson MD [address] [facility] [place] [address] PCP - General 03/28/1997 documented as of this encounter
--- OUTSIDE RECORDS SUMMARY | 2024-01-26 18:52 | External Medical Summary ---
Author Name Unknown Address Unknown Organization K01:[facility] - [address] [place] [address] Laboratory Report Ordering Provider Test Date Status JANAE GREGORY 08/31/2023 09:12:00 Final Observation Date Value Abnormality Reference (Units ) Status PSA 08/31/2023 09:12:00 <0.02 <4.10 (ng/ mL) Final Performing Location [facility] - [address] [place] [address]
--- OUTSIDE RECORDS SUMMARY | 2024-01-26 18:52 | External Medical Summary | Summary of Care ---
Author Name Unknown Organization [facility] Address [address] [facility] [place] [address] Phone [phone] Care Team Providers Care Contact Lens Manufacturer Name Role Phone Heron Hutchinson MD Primary Care Provider Reason for Visit * Reason Comments Dosage Adjustment Via Phone (anticoag Cl inic) Encounter Details Date Type Department Care Team (Latest Contact Info) Description 08/18/2023 7:00 AM EDT Anticoagulation Pharmacy, [place] [address] [place] [address] [facility] [address] [place] [address] Anticoagulation management encounter*; Chronic atrial fibrillation (HCC); S/P TAVR (transcatheter aortic valve replacement) Allergies No known active allergiesdocumented as of this encounter (statuses as of 08/18/2023) Medications Medication Sig Dispensed Refills Start Date [...] as of this encounter (statuses as of 08/18/2023) Active Problems Problem Noted Date Diagnosed Date [...] 3 04/01/2019 Atherosclerotic heart diseas e of [place] coronary artery without angina pectoris 04/01/2019 Secondary [...] BIPAP Plus set at 12 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 Overview: ICD-10 update of inactive term documented as of this encounter (statuses as of 08/18/2023) Resolved Problems Problem Noted Date Diagnosed Date Resolved Date Prediabetes 06/01/2020 11/10/2020 Overview: Per Prediabetes protocol Idioventricular rhythm 11/13/201811/15 Hypertensive kidney disease with chronic kidney disease stage III 09/24/2018 02/06/2020 Overview: Per CKD protocol Kidney disease, chronic, sta ge III (GFR 30-59 ml/min) 09/05/2017 10/04/2018 Overview: Per CKD protocol #1 Atrial fibrillation 09/01/2015 03/26/20 18 Viral URI with cough 08/15/2014 018 ORBIT-[employer] Research Other*[id number] 07/12/2010 07/12/2013 Overview: PROJECT: #[id number], SPONSOR: Owen, PI: Ezio Johnson MD SUMMARY: [...] encounter can be closed. CONTACT: Ziyad Neely, Utility Driver Chronic rhinitis 01/18/2010 08/15/2014 Elevated prostate specific antigen (PSA) 01/16/2002 03/26/2018 Benign prostatic hyperplasia 01/09/2002 03/26/2018 Overview: ICD-10 update of inactive term ICD-10 update of inactive term Anticoagulation management encounter 10/12/2001 03/26/2018 Open wound of forearm 09/01/20002017 Atrial fibrillation 09/25/1995 03/26/20 18 Dyslipidemia, goal to be determined 03/01/2013 documented as of this encounter (statuses as of 08/18/2023) Immunizations Name Administration Dates Next Due COVID-19 [...] (15 years old or older) No 10/22/19 Cognitive Status Response Date of Assessm ent Because of a physical, menta l, or emotional condition, do you have serious difficulty concentrating, remembering, or making decisions? (5 years old or older) No 10/22/2019 documented as of this encounter Progress Notes * Taty Marte [facility] - 08/18/2023 8:08 AM EDT Medication Therapy Disease Management - Anticoagulation Patient: Macario Oliver | : 1935 Subjective Contacts Type Contact Phone/Fax 08/18/2023 08:08 AM EDT Phone (Outgoing) Macario Oliver (Self) [phone] (H) Spoke to Patient Patient-Reported Symptoms: Patient Findings Negatives: Signs/symptoms of thrombosis, Signs/symptoms of bleeding, Change in health, Change in alcohol use, Change in activity, Upcoming invasive procedure, Missed doses, Extra doses, Change in medications, Change in diet/appetite, Bruising Objective Current Warfarin Dose As of 08/18/2023 Warfarin maintenance plan: 7.5 mg (5 mg x 1.5) every Mon, Wed, Fri; 5 mg (5 mg x 1) all other days INR Result As of 08/18/2023 INR goal: 2.0-3.0 INR used for dosin.3 (08/17/2023) Assessment & Plan Warfarin Plan As of 08/18/2023 Full warfarin instructions: 7.5 mg every Mon, Wed, Fri; 5 mg all other days Next INR check: 10/05/2023 Repeat PT/INR in 6 week(s) Weekly dose: not changed Additional Dosing Information: Taty Marte [facility] Clinical Pharmacist 08/18/2023, 8:08 AM documented in this encounter Plan of Treatment Upcoming Encounters Date Type Department Care Team (Late st Contact Info) Description 09/13/2023 10:15 AM EDT Office Visit Urology, [facility] [address] [facility] [place] [address] Zeus Davidson MD [address] [facility] [address] [place] [id number] 10/05/2023 7:30 AM EDT Anticoagulation Pharmacy, [address] [place] [address] [facility] [address] [place] [address] Health Maintenance Due Date Last Done Comments Zoster Vaccines (2 of 2) 12/12/2017 10/17/2017, 09/26 Depression Screening 07/08/2021 07/08/2020 COVID-19 Vaccine ( season) 2022 04/17/2022, 02/06/2021, 05/29/2020, Additional history exists Albumin/Creatinine Ratio 12/21/2022 022, 10/11/2019, 05/22/2018 CKD HGB USE SMARTSET 56594 12/30/202312/29, 12/21/2021, 10/15/2020, Additional history exists CKD PHOS USE SMARTSET 46981 12/30/20230 07/2022, 12/21/2021, 09/12/2018, Additional history exists [...] this encounter Medical Devices Implanted Type Area Digital Printer Device Identifier Shelf Expiration Date Model / Serial / Lot Baseplate #6 Tritanium - [id number] Implanted:Qty: 1 on 10/22/2019 by Sammy Higgins, at OR [facility] Left: Knee LISSET : ORTHOPAEDICS 07/23/2024 5536-B-600 / / [id number] Knee Triathlon Bead No Cuong L 6 - [id number] Implanted:Qty: 1 on 10/22/2019 by Sammy Higgins, DO at OR [facility] Left: Knee LISSET : ORTHOPAEDICS 07/09/2024 5517-F-601 / / [id number] Patella Symmetric S33mm 9mm - [id number] Implanted:Qty: 1 on 10/22/2019 by Sammy Higgins, DO at OR [facility] Left: Knee LISSET : ORTHOPAEDICS 10/29/2023 5556-L-339 / / [id number] Triathlon X3 Tibial Bearing Insert Cs Ramirez 6 Typ Cs Thkns 10mm Implanted:Qty: 1 on 10/22/2019 by Sammy Higgins, at OR [facility] Left: Knee 01/07/2024 5531-G-610 -E / / [id number] documented as of this encounter Visit Diagnoses Diagnosis Anticoagulation management encounter- Primary Encounter for therapeutic drug monitoring Chronic atrial fibrillation (HCC) Atrial fibrillation S/P TAVR (transcatheter aortic valve replacement) Heart valve replaced by other means documented in this encounter Advance Directives Documents on File Type Date Recorded Patient Salary Manager Expl anation Advance Directives and Livin g Will 05/25/2017 LIVING WILL Power of Cloth Mercerizer Back Tender 05/25/2017 POWER OF A TTORNEY * [...] and were consensually agreed upon. Care Teams Contact Lens Manufacturer Relationship Specialty Start Date End Date Heron Hutchinson MD [address] [place] [address] PCP - General 03/28/1997 documented as of this encounter"
--- OUTSIDE RECORDS SUMMARY | 2024-01-26 18:52 | External Medical Summary ---
Author Name Unknown Address Unknown Organization K01:[facility] [place] [address] [place] [address] Laboratory Report Ordering Provider Test Date Status ALLA NEWBERRY 08/17/2023 08:43:02 Final Warfarin Therapy
INR: 2 .0-3.0 conventional anticoagulation
INR: 2.5- 3.5 high intensity anticoagulation Observation Date Value Abnormality Reference (Units ) Status PT 08/17/2023 08:43:02 25.7 Above high normal 11 .6-15.2 (seconds) Final INR 08/17/2023 08:43:02 2.3 Above high normal 0. 8-1.2 Final Performing Location LABORATORY [facility] - [address] [place] [address]
--- OUTSIDE RECORDS SUMMARY | 2024-01-26 18:52 | External Medical Summary | Summary of Care ---
Author Name Unknown Organization [facility] Address [address] [facility] [place] [address] Phone [phone] Care Team Providers Care Polysomnography Tech Name Role Phone Heron Hutchinson MD Primary Care Provider [phone] Reason for Visit * Reason Comments Outpatient Testing Encounter Details Date Type Department Care Team (Late st Contact Info) Description 08/17/2023 8:40 AM EDT Laboratory Laboratory, [place] [address] [place] [address] [place] [address] [place] [address] Chronic atrial fibrillation (HCC); S/P TAVR (transcatheter aortic valve replacement); Anticoagulation management encounter; 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 Allergies No known active allergiesdocumented as of this encounter (statuses as of 08/17/2023) Medications Medication Sig Dispensed Refills Start Date [...] as of this encounter (statuses as of 08/17/2023) Active Problems Problem Noted Date Diagnosed Date [...] 3 04/01/2019 Atherosclerotic heart diseas e of b[place] coronary artery without angina pectoris 04/01/2019 Secondary [...] as of this encounter (statuses as of 08/17/2023) Resolved Problems Problem Noted Date Diagnosed Date Resolved Date Prediabetes 06/01/2020 11/10/2020 Overview: Per Prediabetes protocol Idioventricular rhythm 11/13/201811/15 Hypertensive kidney disease with chronic kidney disease stage III 09/24/2018 02/06/2020 Overview: Per CKD protocol Kidney disease, chronic, sta ge III (GFR 30-59 ml/min) 09/05/2017 10/04/2018 Overview: Per CKD protocol #1 Atrial fibrillation 09/01/2015 03/26/20 18 Viral URI with cough 08/15/2014 018 [employer] Other*[id number] 07/12/2010 07/12/2013 Overview: PROJECT: #[id number], SPONSOR: Owen, PI: Ezio Johnson MD SUMMARY: [...] encounter can be closed. CONTACT: Ziyad Neely, Structural Steel Erection Supervisor Chronic rhinitis 01/18/2010 08/15/2014 Elevated prostate specific antigen (PSA) 01/16/2002 03/26/2018 Benign prostatic hyperplasia 01/09/2002 03/26/2018 Overview: ICD-10 update of inactive term ICD-10 update of inactive term Anticoagulation management encounter 10/12/2001 03/26/2018 Open wound of forearm 09/01/20002017 Atrial fibrillation 09/25/1995 03/26/20 18 Dyslipidemia, goal to be determined 03/01/2013 documented as of this encounter (statuses as of 08/17/2023) Immunizations Name Administration Dates Next Due COVID-19 [...] Care Team (Late st Contact Info) Description 08/18/2023 7:00 AM EDT Anticoagulation Pharmacy, [place] [address] [facility] [place] [address] [facility] [address] [facility] [place] [address] 09/13/2023 10:15 AM EDT Office Visit Urology, [facility] [address] [facility] [place] [address] Zeus Davidson MD [address] [facility] [address] [place] [address] Pending Results Name Type Priority Associated Diagnoses Date /Time PT INR Lab Routine Chronic atrial fibrillation (HCC) S/P TAVR (transcatheter aortic valve replacement) Anticoagulation management encounter 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 08/17/2023 8:43 AM EDT Health Maintenance Due Date Last Done Comments Zoster Vaccines (2 of 2) 12/12/2017 10/17/2017, 09/26 Depression Screening 07/08/2021 07/08/2020 COVID-19 Vaccine ( season) 2022 04/17/2022, 02/06/2021, 05/29/2020, Additional history exists Albumin/Creatinine Ratio 12/21/2022 022, 10/11/2019, 05/22/2018 CKD HGB USE SMARTSET 83887 12/30/202312/29, 12/21/2021, 10/15/2020, Additional history exists CKD PHOS USE SMARTSET 49920 12/30/202307/2022, 12/21/2021, 09/12/2018, Additional history exists HbA1c [...] this encounter Medical Devices Implanted Type Area Bacteriologist Medical Device Identifier Shelf Expiration Date Model / Serial / Lot Baseplate #6 Tritanium - [id number] Implanted:Qty: 1 on 10/22/2019 by Sammy Higgins DO at [facility] Left: Knee LISSET : [employer] 07/23/2024 [id number] / / [id number] Knee Triathlon Bead No Cuong L 6 - [id number] Implanted:Qty: 1 on 10/22/2019 by Sammy Higgins DO at [facility] Left: Knee LISSET : ORTHOP[employer] 07/09/2024 [id number] / / [id number] Patella Symmetric S33mm 9mm - [id number] Implanted:Qty: 1 on 10/22/2019 by Sammy Higgins DO at [facility] Left: Knee LISSET : ORTH[employer] 10/29/2023 [id number]-[id number] / / [id number] Triathlon X3 Tibial Bearing Insert Cs Ramirez 6 Typ Cs Thkns 10mm Implanted:Qty: 1 on 10/22/2019 by Sammy Higgins DO at [facility] Left: Knee 01/07/2024 [id number] -[id number] / / [id number] documented as of this encounter Visit Diagnoses Diagnosis Chronic atrial fibrillation (HCC) Atrial fibrillation S/P TAVR (transcatheter aortic valve replacement) Heart valve replaced by other means Anticoagulation management encounter Encounter for therapeutic drug monitoring care home current use of 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 documented in this encounter Advance Directives Documents on File Type Date Recorded Patient Provider Relations Coordinator Expl anation Advance Directives and Zac Morelos 05/25/2017 LIVING WILL Power of Design Checker 05/25/2017 POWER OF A TTORNEY * Full [...] and were consensually agreed upon. Care Teams Polysomnography Tech Relationship Specialty Start Date End Date Heron Hutchinson MD [address] [facility] [place] [address] PCP - General 03/28/1997 documented as of this encounter
[2024-01-26] MEDS: POTASSIUM CHLORIDE CRTAB 20 MEQ TABCR PO ONE (22:59)
[2024-01-27] MEDS: amLODIPine BESYLATE 5 MG TAB PO SCH (08:23)
[2024-01-27] MEDS: ATORVASTATIN 20 MG TAB PO SCH (08:23)
[2024-01-27] MEDS: PANTOprazole 40 MG/10 ML SYR IV SCH (08:23)
[2024-01-27] MEDS: POTASSIUM CHLORIDE CRTAB 20 MEQ TABCR PO SCH (08:23)
[2024-01-27] MEDS: METOPROLOL SUCC 25MG EXT REL TAB PO SCH (08:23)
[2024-01-27] MEDS: FUROSEMIDE 40 MG/4 ML VIAL IV SCH (08:24)
[2024-01-27 08:49] LABS: Basophils # (auto) 0.02 K/uL (0.00-0.20); Basophils % (auto) 0.2 %; Eosinophils # (auto) 0.08 K/uL (0.00-0.50); Eosinophils % (auto) 0.8 %; Hematocrit (blood only) 23.1 % (42.0-52.0); Hemoglobin 7.5 g/dl (14.0-18.0); Immature Granulocytes # (auto) 0.04 K/uL (0.01-0.20); Immature Granulocytes % (auto) 0.4 %; Lymphocytes # (auto) 1.03 K/uL (1.20-3.40); Lymphocytes % (auto) 10.5 %; Mean Corpuscular Hemoglobin 25.9 pg (25.0-34.0); Mean Corpuscular Hgb Conc 32.5 g/dL (32.0-36.0); Mean Corpuscular Volume 79.7 fL (80.0-100.0); Mean Platelet Volume 9.1 fL (9.4-12.4); Monocytes % (auto) 10.2 %; Neutrophils # (auto) 7.61 K/uL (1.40-6.50); Neutrophils % (auto) 77.9 %; Platelet Count 318 K/uL (130-400); RDW Standard Deviation 46.5 fL (36.4-46.3); White Blood Count 9.78 K/ul (4.8-10.8)
[2024-01-27] MEDS ORDERED: ASPIRIN 81 MG ECTAB PO SCH (09:00)
[2024-01-27 09:08] LABS: BUN Creatinine Ratio 20.8 (10-20); Calcium 8.6 mg/dl (8.6-10.3); Potassium 3.7 mmol/L (3.5-5.1)
[2024-01-27 09:15] LABS: INR 3.5 (0.9-1.1); Prothrombin Time 34.2 Seconds (9.0-12.0)
[2024-01-27 09:20] LABS: Acanthocytes 1+; Ovalocytes 1+; Polychromasia 1+; Tear Drop Cells 1+
[2024-01-27 09:32] LABS: Folate (Folic Acid),Ser orPlas 13.26 ng/ml (>5.38)
--- NOTE | 2024-01-27 10:05 | Hospitalist Progress Note ---
Date of Service January 27, 2024 Assessment & Plan (1) Symptomatic anemia: (2) Chronic heart failure with preserved ejection fraction (HFpEF): (3) Atrial fibrillation: (4) HTN (hypertension): (5) Dyslipidemia: (6) CKD (chronic kidney disease), stage III: (7) History of bioprosthetic transcatheter aortic valve implantation (KEILA): (8) Sleep apnea: (9) Prostate cancer: Plan: Patient is 88-year-old male with PMH chronic atrial fibrillation anticoagulated on warfarin, history KEILA in 10/2018, symptomatic s/p pacemaker, chronic diastolic heart failure HTN, dyslipidemia, CKD III, sleep apnea, prostate cancer, obesity presented to ER with c/o exertional SOB. Symptomatic Anemia Hematochezia Exertional SOB In ER afebrile, BP: 170/86, repeat BP: 139/80, P: 82, R: 18, 99% on RA Hgb: 8.1. Outpatient Hgb: 7.8 on 01/23/24 and 9.4 on 12/15/23, 12 on 12/29/22 INR: 3.4 In ER Hemoccult negative stool Suspect multifactorial exertional shortness of breath secondary to symptomatic anemia and acute on chronic HFpEF Clear liquid diet for now GI consulted, appreciate recs -recommending EGD/colonoscopy procedures on 01/29/24 -INR needs to be at~ 1.4 -pt currently on clear liquid diet and getting colo prep PPI BID Anemia panel noting low iron, s/p IV Venofer on 01/27/24 Transfuse blood as needed Continue to monitor H/H Acute on chronic HFpEF 09/02/2022 echo: EF: 55-59%, small inferior wall motion abnormality with akinesis of the segments. Severe biatrial enlargement, bioprosthetic aortic valve with perivalvular aortic valve prosthesis regurgitation present, mild mitral r egurgitation Repeat echo on January 25 noting EF of 55 to 60%, small inferior wall akinesis, moderately increased left ventricular wall thickness, severe biatrial enlargement, status post TAVR, mild MR BNP:388 CXR: +vascular congestion Given 40 mg Lasix IV Monitor I's and O's, daily weight Hold home HCTZ Cardiology consulted, appreciate recs - Recommended Lasix 40 mg daily Continue to monitor output Chronic Atrial fibrillation Anticoagulated on Coumadin INR: 3.4 Per chart review outpatient INR on 01/23/2024 was 3.7. Coumadin has been on hold since 01/23/24 for planned outpatient EGD and colonoscopy on 01/29/24 Hold Coumadin Continue metoprolol succinate Continue to monitor on telemetry Trend PT/INR Right elbow mass Reported right elbow mass for the past couple weeks 01/17/2024: Outpatient right extremity ultrasound: Indeterminate solid mass at lateral aspect of right elbow with internal vascularity. MRI right elbow with and without IV contrast recommended for further characterization Consider further imaging PCP followup HTN Continue to monitor BP in setting of acute blood loss anemia and diuresis Discussed with Cardiology: -at this time continue Toprol and IV diuresis -holding AM amlodipine and Isosorbide -Hold home HCTZ Continue to monitor BP Dyslipidemia Continue atorvastatin CKD III Cr: 1.0 Baseline Cr: 1.2 Avoid nephrotoxic agents Continue to monitor History TAVR Bioprosthetic valve Follows with cardiology Repeat echo as above CEE CPAP at bedtime Prostate CA S/P brachytherapy in 2003 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 SCDs Dispo: PT/OT for further recs once medically stable Admission and Anticipated Discharge Date Admission Date: January 26, 2024 Subjective patient was seen laying in bed Alert and oriented x 2 Denies any chest pain, shortness of breath or chest tightness Hemoglobin has been downtrending Review of Systems Review of Systems: All systems reviewed & are unremarkable except as noted in Subjective Physical Exam Physical Exam: General: Alert, orientedx2 No acute distress Psych: Appropriate mood and affect Neuro: Alert and oriented x2 HEENT: NC/AT CV: RRR, murmur appreciated Resp: Breath sounds clear bilaterally, no increased effort of breathing Abdomen: Soft, nontender Extremities: Edema in lower extremities bilaterally. Results & Data Results & Data Vital Signs (Past 12 Hours) Vital Signs Temp Pulse Pulse Resp BP Pulse Ox O2 Del Method 01/27/24 08:23 37.1 C 63 20 110/65 93 Room Air 01/27/24 07:00 60 01/27/24 02:24 36.7 C 61 16 106/55 L 95 Nasal Cannula 01/26/24 23:30 36.7 C 60 16 92/47 L 90 Room Air O2 Flow Rate 01/27/24 08:23 01/27/24 07:00 01/27/24 02:24 2 01/26/24 23:30
--- NOTE | 2024-01-27 10:22 | Gastrointestinal Consultation ---
Date of Consultation January 27, 2024 Assessment & Plan (1) Anemia: With melena and elevated BUN suspect upper source but he also had some hematochezia about a month ago. Although I discussed the plan with him he is obviously not able to competently consent so I spoke with his , Coco by phone. I discussed possible EGD and colonoscopy. Both of these procedures, the alternatives including no work up or treatment, risks and benefits were discussed. Among the risks discussed included cardiorespiratory suppression, aspiration, bleeding, failure to diagnose cancer or other pathology and perforation requiring surgery. In addition we discussed that if specimens are obtained it may be deemed beneficial to send these for genetic/DNA testing. Also we discussed the necessity of rescinding the DNR/DNI order for the purposes of the the scopes and the immediate post procedure recovery. The patient's claimed to understand all that was discussed, consented to all and all of her questions were answered. We will tentatively proceed for Monday but for the EGD the INR will need to be 3.0 or less and the colonoscopy ideally 1.4 or less. History of Present Illness Reason for Consultation: Anemia Requesting Physician: Ct Pastor Attending Physician: Stephanie Cuenca MD History of Present Illness 88 yo WM who is a poor informant secondary to some baseline confusion and memory problems his endorses is chronic. He was admitted because he felt tired an d SOB. He was found to be anemic. Allergies Allergy/AdvReac Type Severity Reaction Status Date / Time No Known Allergies Allergy Verified 01/26/24 14:50 Home Medications Medication Instructions Recorded Confirmed Type acetaminophen 325 mg tablet 325 mg PO DAILY PRN Pain 10/11/18 01/26/24 History cholecalciferol (vitamin D3) 25 1,000 unit PO DAILY 10/11/18 01/26/24 History mcg (1,000 unit) tablet leuprolide acetate (6 month) 45 mg 0 mg IM Q24W 10/11/18 01/26/24 History intramuscular syringe kit (Lupron Depot) amlodipine 2.5 mg tablet 2.5 mg PO QAM 01/26/24 01/26/24 History aspirin 81 mg tablet,delayed 81 mg PO DAILY 01/26/24 01/26/24 History release atorvastatin 20 mg tablet 20 mg PO DAILY 01/26/24 01/26/24 History hydrochlorothiazide 25 mg tablet 25 mg PO UD 01/26/24 01/26/24 History iron,carbonyl 65 mg-vitamin C 125 1 tab PO DAILY 01/26/24 01/26/24 History mg tablet,delayed release (Vitron-C) isosorbide dinitrate 20 mg tablet 20 mg PO BID 01/26/24 01/26/24 History metoprolol succinate 25 mg 25 mg PO DAILY 01/26/24 01/26/24 History tablet,extended release 24 hr omeprazole 20 mg capsule,delayed 20 mg PO QAM 01/26/24 01/26/24 History release warfarin 5 mg tablet See Rx Instructions .Route .COMPLEX 01/26/24 01/26/24 History Patient History Social History Smoking Status: Never smoker Second Hand Exposure: No; Do You Dip or Chew Tobacco: No; Tobacco Cessation Education Requested by Patient: No Hx Alcohol Use: No Hx Substance Use: No Preferred Language: Uzbek Communication Ability: Effective Furniture Mover Driver Required: No Beliefs That Will Affect Care: None Current Living Situation: Spouse Other Information That Helps Us Care for You: No Feels Safe at Home: Yes Safety Concerns: Feels Safe At This Time Assistive Devices: CPAP and Glasses Review of Systems Review of Systems: Negative except for HPI and below. Gastrointestinal: He states he had hematochezia about a month ago but over the last week or so he has had melena. He denies any vomiting or abdominal pain. Physical Exam Physical Exam: Elderly WM NAD Constitutional: Afebrile VSS Eyes: Sclera anicteric Conjunctiva pale Respiratory: Clear anteriorly Cardiovascular: Reg II/ JOHANA Gastrointestinal (Abdomen): NL BS, soft, nontender Musculoskeletal: Ext: Neg CCE Neurologic: Alert and cooperative but only orientated to self and place - believed this was "1985" Results & Data Vital Signs (Past 12 Hours) Vital Signs Temp Pulse Pulse Resp BP Pulse Ox O2 Del Method 01/27/24 08:23 37.1 C 63 20 110/65 93 Room Air 01/27/24 07:00 60 01/27/24 02:24 36.7 C 61 16 106/55 L 95 Nasal Cannula 01/26/24 23:30 36.7 C 60 16 92/47 L 90 Room Air O2 Flow Rate 01/27/24 08:23 11/02/24 07:00 01/27/24 02:24 2 01/26/24 23:30 PG Care Time/CCT Total # of Minutes Spent Total Time Spent with Patient: Total time spent is greater than 50% in coordination of care (as documented) at patient's floor/unit and/or counseling patient: Coding Level of Care Code 34071 IN/OBS CONSULT LVL 4,60M Diagnoses Anemia D64.9 Anemia type: unspecified type (1) Anemia Anemia type: unspecified type Qualified Code(s): D64.9 - Anemia, unspecified
[2024-01-27] MEDS ORDERED: SIMETHICONE (ENDO) IR PRN (10:32)
--- NOTE | 2024-01-27 12:41 | Cardiology Progress Note ---
Date of Service January 27, 2024 Assessment & Plan (1) Acute on chronic diastolic heart failure with preserved ejection fraction: (2) Symptomatic anemia: (3) History of bioprosthetic transcatheter aortic valve implantation (KEILA): (4) HTN (hypertension): (5) Elbow mass: Plan 01/26/24: Patient admitted with multifactorial SOB suggestive of acute decompensated HFpEF with evidence of volume overload on exam and symptomatic anemia after recent issues with GI bleeding and anemia. Planned for outpatient colonoscopy on Monday. However, due to worsening symptoms he was referred to the ER for evaluation. History of TAVR with preserved EF per last echo in August 2022. Repeat echo ordered. Chest xray with pulm vascular congestion and hypervolemic on exam. Start IV lasix 40 mg daily Monitor I+O's. Monitor renal function and electrolytes Daily weight with standing scale. history of chronic afib s/p single lead pacemaker due to symptomatic bradycardia. Coumadin has been on hold for 2 days in anticipation of upcoming colonoscopy. Hold coumadin during admission. INR currently 3.4. No need for heparin bridge at this time. Continue metoprolol 25 mg daily Continue ASA, statin, isosorbide, and amlodipine. Hold hctz. Likely transition to loop diuretic upon discharge. Consult GI regarding ongoing anemia and GI bleed. Consider inpatient colonoscopy Monitor Hbg. Transfuse for hbg < 8. 01/27/24: Patient with good diuresis over the last 24 hours per nursing. I+O's not accurately measured. Edema improved Continue IV furosemide 40 mg daily today. Monitor renal function and electrolytes Hbg 7.5. Planning for EGD and colonoscopy on Monday. Coumadin on hold. INR remains 3.5. No need for IV heparin Continue ASA, statin, isosorbide, metoprolol. Amlodipine on hold due to mild hypotension and edema. Echo with stable findings yesterday. Case discussed with Dr. Lopez I spent a total of 30 minutes on the date of service in preparation, delivery, and documentation of the care provided to this patient, excluding any time spent in the performance of separately billed services. Lesli Bonilla PA-C Department of Cardiology, [facility] This chart was completed in part utilizing Speech Voice Recognition Software. Grammatical errors, random word insertions, pronoun errors, and incomplete sentences are an occasional consequence of this system due to software limitations, ambient noise, and hardware issues. Any formal questions or concerns about the content, text, or information contained within the body of this dictation should be directly addressed to the provider for clarification. Admission and Anticipated Discharge Date Admission Date: January 26, 2024 Supervising Physician Co-Signing Physician Notes I have reviewed the advanced practitioner's documentation on the date of service referenced in note, and I agree with, and take responsibility for the plan of care. I spent a total of [15] minutes coordinating, documenting, and providing care for this patient excluding time spent in the performance of separately billed services or time spent by another provider. Subjective Patient reports feeling ok this morning. Ongoing fatigue noted and SOB with activities. Edema greatly improved. frequent urination noted with IV Diuretics yesterday and this morning. No chest pain. No recurrent bleeding Review of Systems Review of Systems: All systems reviewed & are unremarkable except as noted in HPI & below Physical Exam Constitutional: + obese; no acute distress Respiratory: no labored breathing Auscultation: + diminished lung sounds and + crackles Cardiovascular: Rate/Rhythm: + irregularly irregular Heart Sounds: + murmur (II/ systolic murmur LSB) Vessels: + JVD Extremities: + edema (trace BL edema) Gastrointestinal (Abdomen): Inspection/Auscultation: + abdomen distended Percussion/Palpation: abdomen soft; abdomen nontender Musculoskeletal: no cyanosis or clubbing, extremities motor strength 5/5 Neurologic: PERRL, EOMI, accommodation nl, no face palsy, no dysarthria Results & Data Vital Signs (Past 12 Hours) Vital Signs Temp Pulse Pulse Resp BP Pulse Ox O2 Del Method 01/27/24 11:53 36.7 C 77 20 91/50 L 91 Room Air 01/27/24 08:23 37.1 C 63 20 110/65 93 Room Air 01/27/24 07:00 60 01/27/24 02:24 36.7 C 61 16 106/55 L 95 Nasal Cannula O2 Flow Rate 01/27/24 11:53 01/27/24 08:23 01/27/24 07:00 01/27/24 02:24 2 Laboratory Results Cardiac Enzymes 01/26/24 01/26/24 Range/Units 12:19 14:21 AST TNP 22 Troponin I High Sens 14.0 (0-20) pg/ml B-Natriuretic Peptide 388 H (0-100) pg/ml Coagulation 01/26/24 01/26/24 01/27/24 Range/Units 12:19 14:21 08:04 PT 33.0 H 34.2 H (9.0-12.0) Seconds APTT 48 H (21-31) Seconds B-Natriuretic Peptide 388 H (0-100) pg/ml CBC 01/26/24 01/27/24 Range/Units 12:19 08:04 WBC 12.01 H 9.78 (4.8-10.8) K/ul RBC 3.12 L 2.90 L (4.70-6.10) M/uL Hgb 8.1 L 7.5 L (14.0-18.0) g/dl Hct 25.2 L 23.1 L (42.0-52.0) % Plt Count 380 318 (130-400) K/uL Neut # (Auto) 7.61 H (1.40-6.50) K/uL Lymph # (Auto) 1.03 L (1.20-3.40) K/uL [place] # (Auto) 1.00 H (0.11-0.59) K/uL Eos # (Auto) 0.08 (0.00-0.50) K/uL Baso # (Auto) 0.02 (0.00-0.20) K/uL Comprehensive Metabolic Panel 01/26/24 01/26/24 01/27/24 Range/Units 12:19 14:21 08:04 Sodium 135 L 134 L (136-145) mmol/L Potassium TNP 3.5 3.7 Chloride 97 L 97 L (98-107) mmol/L Carbon Dioxide 30 31 (21-32) mmol/L BUN 26 H 21 (6-23) mg/dl Creatinine 1.07 1.01 (0.6-1.4) mg/dl Glucose 104 H 102 H (70-99(Fasting)) mg/dl Calcium 9.0 8.6 (8.6-10.3) mg/dl AST TNP 22 ALT 15 (7-52) U/L Alkaline Phosphatase 83 (34-104) U/L Total Protein 7.2 (6.0-8.3) gm/dl Albumin 3.5 (3.4-5.0) gm/dl Intake and Output 01/26/24 01/27/24 01/27/24 22:59 06:59 14:59 Output Total 100 / 325 225 / 325 Balance -100 / -325 -225 / -325 Output: Urine 100 / 325 225 / 325 Other: Other Intake Source sips npo Weight 88.7 kg 86.3 kg Weight Measurement Method Built in [facility] Diagnostic Findings Telemetry reviewed: Afib with ventricular pacing Echo report reviewed dated 01/26/24: Normal LVEF at 55-60% Small sized inferior wall motion abnormality with akinesis of the segments LV wall thickness is moderately increased TAVR with borderline elevated gradients. mild paravalvular aortic valve prosthesis noted Prox ascending aorta at 4.4 cm Estimated pulm artery systolic pressure is 45 mmHg Compared to prior study, bioprosthetic gradients are stable.
[2024-01-27] MEDS: LAVAGE SOLUTION 4000ML PO SCH (12:47)
[2024-01-27 15:09] LABS: Hemoglobin 7.3 g/dl (14.0-18.0)
[2024-01-27] MEDS: IRON SUCROSE 200 MG in SODIUM CHLORIDE 0.9% 100 ML IV ONE (15:15)
--- NOTE | 2024-01-27 19:41 | Electrocardiogram Report ---
Test Reason : Blood Pressure : */* mmHG Vent. Rate : 65 BPM Atrial Rate : 65 BPM P-R Int : * ms QRS Dur : 104 ms QT Int : 426 ms P-R-T Axes : 90 -56 103 degrees QTcB Int : 443 ms Ventricular-paced rhythm Abnormal ECG When compared with ECG of 30-Jul-1999 21:24, MANUAL COMPARISON REQUIRED PREVIOUS ECG IS INCOMPATIBLE Confirmed by Socorro Galvan ([place]) on 01/27/2024 7:40:44 PM Referred By: REFERRED SELF Confirmed By: Socorro Galvan
--- NOTE | 2024-01-28 01:47 | Gastroenterology Progress Note ---
Date of Service January 28, 2024 Assessment & Plan (1) Anemia: Plan: With melena and elevated BUN suspect upper source but he also had some hematochezia about a month ago. We will tentatively proceed for Monday but for the EGD the INR will need to be 3.0 or less and the colonoscopy ideally 1.4 or less. Admission and Anticipated Discharge Date Admission Date: January 26, 2024 Subjective Patient states he drank Golytely and had BMs. Review of Systems Review of Systems: Negative except for HPI and below Gastrointestinal: Denies abdominal pain. Physical Exam Physical Exam: WD WN WM NAD Constitutional: Afebrile VSS Respiratory: Clear Cardiovascular: Reg Gastrointestinal (Abdomen): NL BS, soft, nontender Results & Data Results & Data Vital Signs (Past 12 Hours) Vital Signs Temp Pulse Pulse Resp BP BP Pulse Ox 01/28/24 00:02 01/27/24 23:41 60 22 93 01/27/24 22:50 37.2 C 69 18 120/64 90 01/27/24 21:55 61 01/27/24 20:10 36.9 C 60 16 108/40 L 91 01/27/24 15:50 36.7 C 64 20 111/61 93 O2 Del Method O2 Flow Rate 01/28/24 00:02 Nasal Cannula 2 01/27/24 23:41 2 01/27/24 22:50 Room Air 01/27/24 21:55 01/27/24 20:10 Nasal Cannula 2.5 01/27/24 15:50 Room Air PG Care Time/CCT Total # of Minutes Spent Total Time Spent with Patient: Total time spent is greater than 50% in coordination of care (as documented) at patient's floor/unit and/or counseling patient: Coding Level of Care Code 31457 SUB INP/OBS CARE 04/20MIN Diagnoses Anemia D64.9 Anemia type: unspecified type (1) Anemia Anemia type: unspecified type Qualified Code(s): D64.9 - Anemia, unspecified
[2024-01-28 06:52] LABS: Hematocrit (blood only) 24.9 % (42.0-52.0); Hemoglobin 7.8 g/dl (14.0-18.0); Mean Corpuscular Hemoglobin 25.4 pg (25.0-34.0); Mean Corpuscular Hgb Conc 31.3 g/dL (32.0-36.0); Mean Corpuscular Volume 81.1 fL (80.0-100.0); Mean Platelet Volume 9.3 fL (9.4-12.4); Platelet Count 350 K/uL (130-400); RDW Standard Deviation 47.4 fL (36.4-46.3); Red Blood Count 3.07 M/uL (4.70-6.10); White Blood Count 9.98 K/ul (4.8-10.8)
[2024-01-28 07:03] LABS: Albumin Globulin Ratio 0.9 (0.9-2); Albumin Level 3.1 gm/dl (3.4-5.0); BUN Creatinine Ratio 20.4 (10-20); Bilirubin,Total 0.8 mg/dl (0.2-1.0); Calcium 8.8 mg/dl (8.6-10.3); Creatinine Clr Calc Pharmacy 56.9 ml/min; Globulin 3.3 gm/dl (2.5-4.0); Magnesium 1.8 mg/dl (1.7-2.4); Phosphorus 3.1 mg/dl (2.5-4.9); Potassium 3.5 mmol/L (3.5-5.1); Total Protein 6.4 gm/dl (6.0-8.3)
[2024-01-28 07:18] LABS: INR 3.2 (0.9-1.1); Prothrombin Time 31.7 Seconds (9.0-12.0)
--- NOTE | 2024-01-28 10:37 | XRay Report ---
XR chest 1V portable HISTORY: 88 years-old Male f/u pulm vasc congestion; pleural effusions acute shortness of breath COMPARISON: 01/26/2024 TECHNIQUE: AP view of the chest FINDINGS: Marked cardiomegaly. Unchanged right paratracheal opacity, likely vascular pedicle. Single lead left subclavian pacer. Aortic valvular endograft. Pulmonary vascular congestion. No pneumothorax. Mildly i ncreased size of the small pleural effusions with persistent mild left greater right bibasilar opacit ies. Degenerative changes of the shoulders and spine are again noted. IMPRESSION: 1. Cardiomegaly with pulmonary vascular congestion. 2. Mildly increased size of the small pleural effusions with persistent bibasilar opacities, likely a telectatic. ACT 112: Negative or not required by law. The above report was generated using voice recognition software. It may contain grammatical, syntax o r spelling errors. Electronically signed by: Roc Torre M.D. 01/28/2024 10:35 AM
[2024-01-28] MEDS: PHYTONADIONE 2.5 MG in DEXTROSE 5% 50 ML IV ONE (11:49)
--- NOTE | 2024-01-28 11:57 | Hospitalist Progress Note ---
Date of Service January 28, 2024 Assessment & Plan (1) Symptomatic anemia: (2) Chronic heart failure with preserved ejection fraction (HFpEF): (3) Atrial fibrillation: (4) HTN (hypertension): (5) Dyslipidemia: (6) CKD (chronic kidney disease), stage III: (7) History of bioprosthetic transcatheter aortic valve implantation (KEILA): (8) Sleep apnea: (9) Prostate cancer: Plan: Patient is 88-year-old male with PMH chronic atrial fibrillation anticoagulated on warfarin, history KEILA in 10/2018, symptomatic s/p pacemaker, chronic diastolic heart failure HTN, dyslipidemia, CKD III, sleep apnea, prostate cancer, obesity presented to ER with c/o exertional SOB. Symptomatic Anemia Hematochezia Exertional SOB In ER afebrile, BP: 170/86, repeat BP: 139/80, P: 82, R: 18, 99% on RA Hgb: 8.1. Outpatient Hgb: 7.8 on 01/23/24 and 9.4 on 12/15/23, 12 on 12/29/22 INR: 3.4 In ER Hemoccult negative stool Suspect multifactorial exertional shortness of breath secondary to symptomatic anemia and acute on chronic HFpEF Clear liquid diet for now GI consulted, appreciate recs -recommending EGD/colonoscopy procedures on 01/29/24 -stating "for the EGD the INR will need to be 3.0 or less and the colonoscopy ideally 1.4 or less." -pt currently on clear liquid diet and getting colo prep PPI BID Anemia panel noting low iron, s/p IV Venofer on 01/27/24 Transfuse pRBCs as needed, per Cardiology for hgb<8 Continue to monitor H/H Stable at this time at 7.8 Acute on chronic HFpEF 09/02/2022 echo: EF: 55-59%, small inferior wall motion abnormality with akinesis of the segments. Severe biatrial enlargement, bioprosthetic aortic valve with perivalvular aortic valve prosthesis regurgitation present, mild mitral regurgitation Repeat echo on January 25 noting EF of 55 to 60%, small inferior wall akinesis, moderately increased left ventricular wall thickness, severe biatrial enlargement, status post TAVR, mild MR BNP:388 CXR: +vascular congestion Given 40 mg Lasix IV Monitor I's and O's, daily weight Hold home HCTZ Cardiology consulted, appreciate recs - Recommended Lasix 40 mg daily Continue to monitor output Chronic Atrial fibrillation Chronic Anticoagulation Anticoagulated on Coumadin INR: 3.4 on admission Per chart review outpatient INR on 01/23/2024 was 3.7. Coumadin has been on hold since 01/23/24 for planned outpatient EGD and colonoscopy on 01/29/24 Held Coumadin, INR persistently >3. Due to need for procedure on 01/29/2024, cardiology recommending dose of vitamin K for reversal on 01/28/2024 with repeat check ordered Continue metoprolol succinate Continue to monitor on telemetry Trend PT/INR Right elbow mass Reported right elbow mass for the past couple weeks 01/17/2024: Outpatient right extremity ultrasound: Indeterminate solid mass at lateral aspect of right elbow with internal vascularity. MRI right elbow with and without IV contrast recommended for further characterization Consider further imaging PCP followup HTN Continue to monitor BP in setting of acute blood loss anemia and diuresis Discussed with Cardiology: -at this time continue Toprol and IV diuresis -holding AM amlodipine and Isosorbide -Hold home HCTZ Continue to monitor BP especially in setting of colonoscopy prep and IV diuresis Dyslipidemia Continue atorvastatin CKD III Cr: 1.0 Baseline Cr: 1.2 Avoid nephrotoxic agents Continue to monitor History TAVR Bioprosthetic valve Follows with cardiology Repeat echo as above CEE CPAP at bedtime Prostate CA S/P brachytherapy in 2003 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 SCDs Dispo: PT/OT for further recs once medically stable Admission and Anticipated Discharge Date Admission Date: January 26, 2024 Subjective Patient was seen laying in bed, resting comfortably Denied any chest pain today, shortness of breath or palpitations Case discussed with cardiology Lesli Bonilla PA-C and Dr. Leena Lopez who advised reversing INR with vitamin K for anticipated procedure with ANDIE huang. attempted to call patient's Coco to provide update without success Review of Systems Review of Systems: All systems reviewed & are unremarkable except as noted in Subjective Physical Exam Physical Exam: General: Alert, orientedx2 No acute distress Psych: Appropriate mood and affect Neuro: Alert and oriented x2 HEENT: NC/AT CV: RRR, murmur appreciated Resp: Breath sounds clear bilaterally, no increased effort of breathing Abdomen: Soft, nontender Extremities: Edema in lower extremities bilaterally. Results & Data Results & Data Vital Signs (Past 12 Hours) Vital Signs Temp Pulse Resp BP BP Pulse Ox O2 Del Method 01/28/24 11:52 36.8 C 60 16 132/65 94 Room Air 01/28/24 07:51 36.6 C 60 20 122/62 99 Nasal Cannula 01/28/24 02:58 36.8 C 61 18 128/69 96 Nasal Cannula O2 Flow Rate 01/28/24 11:52 01/28/24 07:51 3 01/28/24 02:58 3
--- NOTE | 2024-01-28 12:35 | Cardiology Progress Note ---
Date of Service January 28, 2024 Assessment & Plan (1) Acute on chronic diastolic heart failure with preserved ejection fraction: (2) Symptomatic anemia: (3) History of bioprosthetic transcatheter aortic valve implantation (KEILA): (4) HTN (hypertension): (5) Elbow mass: Plan 01/26/24: Patient admitted with multifactorial SOB suggestive of acute decompensated HFpEF with evidence of volume overload on exam and symptomatic anemia after recent issues with GI bleeding and anemia. Planned for outpatient colonoscopy on Monday. However, due to worsening symptoms he was referred to the ER for evaluation. History of TAVR with preserved EF per last echo in August 2022. Repeat echo ordered. Chest xray with pulm vascular congestion and hypervolemic on exam. Start IV lasix 40 mg daily Monitor I+O's. Monitor renal function and electrolytes Daily weight with standing scale. history of chronic afib s/p single lead pacemaker due to symptomatic bradycardia. Coumadin has been on hold for 2 days in anticipation of upcoming colonoscopy. Hold coumadin during admission. INR currently 3.4. No need for heparin bridge at this time. Continue metoprolol 25 mg daily Continue ASA, statin, isosorbide, and amlodipine. Hold hctz. Likely transition to loop diuretic upon discharge. Consult GI regarding ongoing anemia and GI bleed. Consider inpatient colonoscopy Monitor Hbg. Transfuse for hbg < 8. 01/27/24: Patient with good diuresis over the last 24 hours per nursing. I+O's not accurately measured. Edema improved Continue IV furosemide 40 mg daily today. Monitor renal function and electrolytes Hbg 7.5. Planning for EGD and colonoscopy on Monday. Coumadin on hold. INR remains 3.5. No need for IV heparin Continue ASA, statin, isosorbide, metoprolol. Amlodipine on hold due to mild hypotension and edema. Echo with stable findings yesterday. 01/28/24: Improved volume status. Continue IV furosemide 40 mg daily for now. Will hold in AM prior to endoscopies. Reassess after procedures. Likely will change from home HCTZ dose to loop diuretic on discharge. Coumadin remains on hold. Hbg stable but low at 7.8 INR remains elevated despite several days of holding coumadin. Vit K 2.5 mg given this morning. Recheck INR later today and repeat dose if needed. Consider IV heparin bridge if INR< 2.0 for stroke/dvt proph. continue to hold isosorbide and amlodipine for mild hypotension Continue ASA, statin, metoprolol. Case discussed with Dr. Lopez I spent a total of 30 minutes on the date of service in preparation, delivery, and documentation of the care provided to this patient, excluding any time spent in the performance of separately billed services. Lesli Bonilla PA-C Department of Cardiology, [facility] This chart was completed in part utilizing Speech Voice Recognition Software. Grammatical errors, random word insertions, pronoun errors, and incomplete sentences are an occasional consequence of this system due to software limitations, ambient noise, and hardware issues. Any formal questions or concerns about the content, text, or information contained within the body of this dictation should be directly addressed to the provider for clarification. Admission and Anticipated Discharge Date Admission Date: January 26, 2024 Supervising Physician Co-Signing Physician Notes I have reviewed the advanced practitioner's documentation on the date of service referenced in note, and I agree with, and take responsibility for the plan of care. Scheduled for EGD on Monday INR elevated received vitamin K today Volume status has been stable with IV Lasix I spent a total of [15] minutes coordinating, documenting, and providing care for this patient excluding time spent in the performance of separately billed services or time spent by another provider. Subjective Patient sitting at edge of bed. Feeling well this morning. Improved SOB/edema siince admission. Hbg remains low at 7.8 this morning. Plans for EGD/colonoscopy tomorrow morning . INR remained high this mornng despite holding Coumadin and he received VIt K this morning. No chest pain. No dizziness or lightheadedness. Review of Systems Review of Systems: All systems reviewed & are unremarkable except as noted in HPI & below Physical Exam Constitutional: + obese; no acute distress Respiratory: no labored breathing Auscultation: + diminished lung sounds; no crackles and no rales Cardiovascular: Rate/Rhythm: + irregularly irregular Heart Sounds: + murmur (II/ systolic murmur LSB) Vessels: no JVD Extremities: no edema Gastrointestinal (Abdomen): Percussion/Palpation: abdomen soft; abdomen nontender Musculoskeletal: no cyanosis or clubbing, extremities motor strength 5/5 Neurologic: PERRL, EOMI, accommodation nl, no face palsy, no dysarthria Results & Data Vital Signs (Past 12 Hours) Vital Signs Temp Pulse Resp BP BP Pulse Ox O2 Del Method 01/28/24 11:52 36.8 C 60 16 132/65 94 Room Air 01/28/24 07:51 36.6 C 60 20 122/62 99 Nasal Cannula 01/28/24 02:58 36.8 C 61 18 128/69 96 Nasal Cannula O2 Flow Rate 01/28/24 11:52 01/28/24 07:51 3 01/28/24 02:58 3 Laboratory Results Cardiac Enzymes 01/28/24 Range/Units 06:13 AST 23 (13-39) U/L Coagulation 01/28/24 Range/Units 06:13 PT 31.7 H (9.0-12.0) Seconds CBC 01/27/24 01/28/24 Range/Units 14:49 06:13 WBC 9.98 (4.8-10.8) K/ul RBC 3.07 L (4.70-6.10) M/uL Hgb 7.3 L 7.8 L (14.0-18.0) g/dl Hct 23.0 L 24.9 L (42.0-52.0) % Plt Count 350 (130-400) K/uL Comprehensive Metabolic Panel 01/28/24 Range/Units 06:13 Sodium 136 (136-145) mmol/L Potassium 3.5 (3.5-5.1) mmol/L Chloride 96 L (98-107) mmol/L Carbon Dioxide 32 (21-32) mmol/L BUN 19 (6-23) mg/dl Creatinine 0.93 (0.6-1.4) mg/dl Glucose 100 H (70-99(Fasting)) mg/dl Calcium 8.8 (8.6-10.3) mg/dl AST 23 (13-39) U/L ALT 14 (7-52) U/L Alkaline Phosphatase 77 (34-104) U/L Total Protein 6.4 (6.0-8.3) gm/dl Albumin 3.1 L (3.4-5.0) gm/dl Intake and Output 01/27/24 01/28/24 01/28/24 23:59 06:59 14:59 Intake Total Balance Intake: IV Iron Sucrose 200 mg In Sodium Chloride 0.9% 100 ml @ 220 mls/ hr IV TODAY ONE Rx#:[id number] Oral Other: Weight Diagnostic Findings Telemetry reviewed: Afib with chronic ventricular pacing Medications Administered Current Inpatient Medications Acetaminophen (Acetaminophen 325 Mg Tab) 650 mg PO Q4H PRN PRN Reason: Pain or Fever Stop: 02/25/24 16:39 Amlodipine Besylate (Amlodipine Besylate 5 Mg Tab) 2.5 mg PO QAM JACQUELIN Stop: 02/26/24 08:59 Last Admin: 01/27/24 08:23 Dose: 2.5 mg Atorvastatin Calcium (Atorvastatin 20 Mg Tab) 20 mg PO DAILY JACQUELIN Stop: 02/26/24 08:59 Last Admin: 01/28/24 08:00 Dose: 20 mg Furosemide (Furosemide 40 Mg/4 Ml Vial) 40 mg IV DAILY JACQUELIN Stop: 02/26/24 08:59 Last Admin: 01/28/24 08:01 Dose: 40 mg Pantoprazole Sodium (Protonix) 40 mg in 10 mls @ 5 mls/min IV BID JACQUELIN Stop: 02/26/24 08:59 Last Admin: 01/28/24 07:57 Dose: 5 mls/min Isosorbide Dinitrate (Isosorbide Dinitrate 20 Mg Tab) 20 mg PO BID17 [facility] Stop: 02/25/24 16:59 Last Admin: 01/27/24 08:23 Dose: 20 mg Metoprolol Succinate (Metoprolol Succ 25mg Ext Rel Tab) 25 mg PO DAILY JACQUELIN Stop: 02/26/24 08:59 Last Admin: 01/28/24 08:00 Dose: 25 mg Ondansetron HCl (Ondansetron Inj 2 Mg/Ml 2 Ml Vial) 4 mg IV Q6H PRN PRN Reason: Nausea Stop: 02/25/24 16:39 Polyethylene Glycol (Polyethylene (Miralax) 17 Gm Pack) 17 gm PO DAILY PRN PRN Reason: Constipation Stop: 02/25/24 16:39 Polyethylene Glycol/Electrolytes (Lavage Solution 4000ml) 8 dose PO DAILY@1400 [facility] Stop: 01/28/24 14:01 Last Admin: 01/27/24 12:47 Dose: 8 dose Potassium Chloride (Potassium Chloride Crtab 20 Meq Tabcr) 20 meq PO QAM JACQUELIN Stop: 02/26/24 08:59 Last Admin: 11/03/24 08:05 Dose: 20 meq (4) HTN (hypertension) Hypertension type: primary hypertension Qualified Code(s): I10 - Essential (primary) hypertension
[2024-01-28 16:54] LABS: INR 2.4 (0.9-1.1)
[2024-01-29 07:14] LABS: Hematocrit (blood only) 23.7 % (42.0-52.0); Hemoglobin 7.4 g/dl (14.0-18.0); Mean Corpuscular Hemoglobin 25.1 pg (25.0-34.0); Mean Corpuscular Hgb Conc 31.2 g/dL (32.0-36.0); Mean Corpuscular Volume 80.3 fL (80.0-100.0); Mean Platelet Volume 9.1 fL (9.4-12.4); Platelet Count 309 K/uL (130-400); RDW Coefficient of Variation 16.2 % (11.5-14.5); Red Blood Count 2.95 M/uL (4.70-6.10); White Blood Count 10.07 K/ul (4.8-10.8)
[2024-01-29] MEDS ORDERED: SIMETHICONE (ENDO) IR PRN (07:15)
[2024-01-29 07:26] LABS: BUN Creatinine Ratio 18.9 (10-20); Bilirubin,Total 0.8 mg/dl (0.2-1.0); Calcium 8.5 mg/dl (8.6-10.3); Creatinine Clr Calc Pharmacy 55.8 ml/min; Magnesium 1.7 mg/dl (1.7-2.4); Phosphorus 2.9 mg/dl (2.5-4.9); Potassium 3.3 mmol/L (3.5-5.1)
[2024-01-29 07:35] LABS: INR 1.5 (0.9-1.1); Prothrombin Time 15.5 Seconds (9.0-12.0)
--- NOTE | 2024-01-29 08:54 | Cardiology Progress Note ---
Date of Service January 29, 2024 Assessment & Plan (1) Acute on chronic diastolic heart failure with preserved ejection fraction: (2) Symptomatic anemia: (3) History of bioprosthetic transcatheter aortic valve implantation (KEILA): (4) HTN (hypertension): (5) Elbow mass: Plan 01/26/24: Patient admitted with multifactorial SOB suggestive of acute decompensated HFpEF with evidence of volume overload on exam and symptomatic anemia after recent issues with GI bleeding and anemia. Planned for outpatient colonoscopy on Monday. However, due to worsening symptoms he was referred to the ER for evaluation. History of TAVR with preserved EF per last echo in August 2022. Repeat echo ordered. Chest xray with pulm vascular congestion and hypervolemic on exam. Start IV lasix 40 mg daily Monitor I+O's. Monitor renal function and electrolytes Daily weight with standing scale. history of chronic afib s/p single lead pacemaker due to symptomatic bradycardia. Coumadin has been on hold for 2 days in anticipation of upcoming colonoscopy. Hold coumadin during admission. INR currently 3.4. No need for heparin bridge at this time. Continue metoprolol 25 mg daily Continue ASA, statin, isosorbide, and amlodipine. Hold hctz. Likely transition to loop diuretic upon discharge. Consult GI regarding ongoing anemia and GI bleed. Consider inpatient colonoscopy Monitor Hbg. Transfuse for hbg < 8. 01/27/24: Patient with good diuresis over the last 24 hours per nursing. I+O's not accurately measured. Edema improved Continue IV furosemide 40 mg daily today. Monitor renal function and electrolytes Hbg 7.5. Planning for EGD and colonoscopy on Monday. Coumadin on hold. INR remains 3.5. No need for IV heparin Continue ASA, statin, isosorbide, metoprolol. Amlodipine on hold due to mild hypotension and edema. Echo with stable findings yesterday. 01/28/24: Improved volume status. Continue IV furosemide 40 mg daily for now. Will hold in AM prior to endoscopies. Reassess after procedures. Likely will change from home HCTZ dose to loop diuretic on discharge. Coumadin remains on hold. Hbg stable but low at 7.8 INR remains elevated despite several days of holding coumadin. Vit K 2.5 mg given this morning. Recheck INR later today and repeat dose if needed. Consider IV heparin bridge if INR< 2.0 for stroke/dvt proph. continue to hold isosorbide and amlodipine for mild hypotension Continue ASA, statin, metoprolol. 01/29/2024: -Patient appear near euvolemic on exam. Monitor fluid status very closely in the setting of receiving Blood products -NPO in prep for endoscopies this afternoon. -Coumadin on hold. H/H this AM 7.4/23/7 and INR 1.5. -Continue ASA, Statin, metoprolol, Amlodipine (titrate up as needed for BP control),and isosorbide Dinitrate. Patient will likely need to be discharged on a maintenance dose of loop diuretic pending hospital course. Case has been discussed with Dr. Plaomino. Further recommendations regarding plan of care as per his assessment. I spent a total of 30 minutes on the date of service in preparation, delivery, documentation of the care provided to the patient excluding any time spent in the performance of separately billed services. LIZZ Chen [facility] Admission and Anticipated Discharge Date Admission Date: January 26, 2024 Supervising Physician Co-Signing Physician Notes I have personally performed a history and physical examination on the patient. I have reviewed the advance practitioner's documentation, and I agree with, and take responsibility for the plan of care. 88-year-old patient seen and examined post colonoscopy and EGD. No obvious bleeding from source identified. Appears euvolemic on exam. INR subtherapeutic. Received 1 unit of packed red blood cells today. Denies signs/symptoms of GI blood loss. Transition IV to oral furosemide 40 mg daily. Okay to restart oral warfarin per gastroenterology. Goal INR 2.0 - 3.0. Avoid IV bridging with heparin at this time. Continue amlodipine, atorvastatin, isosorbide dinitrate, metoprolol succinate, and potassium supplement as ordered. Dontae Palomino DO, [facility] Subjective 01/29/2024: Patient seen and examined in follow up today. Feeling fair. He is currently resting in bed receiving a unit of PRBCs. Family at bedside. Patient is NPO in prep for a possible EGD and colonoscopy this afternoon. Denies any chest pain, pressure or palpitations. Reports that his breathing feels stable, currently on 02 at 2LPM. Labs, vitals, diagnostics, telemetry and documentation reviewed. Telemetry reviewed showing Paced in the 60's. No acute events overnight. Review of Systems Review of Systems: All systems reviewed & are unremarkable except as noted in HPI & below Physical Exam Constitutional: well developed and + ill appearing; no acute distress Neck: normal visual inspection and trachea midline Respiratory: normal respiratory effort, lungs clear to auscultation Cardiovascular: Rate/Rhythm: regular rate (paced ) and regular rhythm Heart Sounds: normal S1, normal S2 and + murmur (+2/6 systolic murmur ) Vessels: no JVD Extremities: + edema (+ 1 RLE and Trace LLE. Right is chronic ) Skin: normal turgor and + pallor Psychiatric: A+Ox3, euthymic affect Results & Data Vital Signs (Past 12 Hours) Vital Signs Temp Pulse Pulse Resp BP BP Pulse Ox 01/29/24 07:58 36.8 C 63 16 144/72 H 90 01/29/24 04:08 36.7 C 60 18 112/58 L 94 01/29/24 00:29 63 01/28/24 23:21 36.6 C 64 16 139/79 100 01/28/24 22:55 O2 Del Method O2 Flow Rate 01/29/24 07:58 Room Air 01/29/24 04:08 Nasal Cannula 2 01/29/24 00:29 01/28/24 23:21 Nasal Cannula 2 01/28/24 22:55 Nasal Cannula 2 Laboratory Results Cardiac Enzymes 01/29/24 Range/Units 06:25 AST 26 (13-39) U/L Coagulation 01/28/24 01/29/24 Range/Units 15:55 06:25 PT 24.0 H 15.5 H (9.0-12.0) Seconds CBC 01/29/24 Range/Units 06:25 WBC 10.07 (4.8-10.8) K/ul RBC 2.95 L (4.70-6.10) M/uL Hgb 7.4 L (14.0-18.0) g/dl Hct 23.7 L (42.0-52.0) % Plt Count 309 (130-400) K/uL Comprehensive Metabolic Panel 01/29/24 Range/Units 06:25 Sodium 137 (136-145) mmol/L Potassium 3.3 L (3.5-5.1) mmol/L Chloride 96 L (98-107) mmol/L Carbon Dioxide 33 H (21-32) mmol/L BUN 18 (6-23) mg/dl Creatinine 0.95 (0.6-1.4) mg/dl Glucose 111 H (70-99(Fasting)) mg/dl Calcium 8.5 L (8.6-10.3) mg/dl AST 26 (13-39) U/L ALT 15 (7-52) U/L Alkaline Phosphatase 73 (34-104) U/L Total Protein 6.0 (6.0-8.3) gm/dl Albumin 3.0 L (3.4-5.0) gm/dl Intake and Output 01/28/24 01/29/24 01/29/24 22:59 06:59 14:59 Intake Total 350 / 520.25 0 / 0 Balance 350 / 520.25 0 / 0 Intake: Oral 350 / 470 Intake (Blood Product) Amt 0 / 0 Packed Cells, Leukoreduced 0 / 0 Unit [id number] Other: Other Intake Source npo Weight 84.5 kg 84.5 kg Patient Weight 01/30/24 06:59 Weight 84.5 kg (4) HTN (hypertension) Hypertension type: primary hypertension Qualified Code(s): I10 - Essential (primary) hypertension
[2024-01-29] MEDS ORDERED: SODIUM CHLORIDE 0.9% 50 ML IV PRN (09:35)
[2024-01-29] MEDS ORDERED: SODIUM CHLORIDE 0.9% 100 ML IV PRN (09:35)
--- NOTE | 2024-01-29 09:45 | History & Physical Bridge Note ---
Date of Service January 29, 2024 History & Physical Bridge Note I have examined the patient, reviewed the History & Physical and in the interval since the performance of the History & Physical I have noted the following changes of clinical significance: no changes noted. Patient finished his prep. 01/28 INR 1.5. hgb 7.4. no new concerns from patient. no chest pain or SOB. - Discussed the case with Dr. Smith. - proceed with EGD and colonoscopy for today. - anesthesia would like the patient to get 1 unit PRBC prior to procedure. I had made primary team aware.
--- NOTE | 2024-01-29 10:22 | Anesthesiology Consultation ---
Date of Service January 29, 2024 Assessment & Plan (1) Encounter for pre-operative examination: Chart Review Chart Review: Acceptable Risk for Surgery, Patient NOT seen in Pre Admission Testing and entry level drafter initiated Consults Requested none Proposed Anesthesia Anesthesia Type: MAC History Surgery Operation Date: 01/29/24 16:30 Proposed Procedures p Colonoscopy EGD Sarah Smith MD Height/Weight Height: 5 ft 5 in Weight: 84.5 kg Allergies Allergy/AdvReac Type Severity Reaction Status Date / Time No Known Allergies Allergy Verified 01/26/24 14:50 Medications Home Medications Medication Instructions Recorded Confirmed Last Taken acetaminophen 325 mg tablet 325 mg PO DAILY PRN Pain 10/11/18 01/26/24 Unknown cholecalciferol (vitamin D3) 25 1,000 unit PO DAILY 10/11/18 01/26/24 Unknown mcg (1,000 unit) tablet leuprolide acetate (6 month) 45 mg 0 mg IM Q24W 10/11/18 01/26/24 Unknown intramuscular syringe kit (Lupron Depot) amlodipine 2.5 mg tablet 2.5 mg PO QAM 01/26/24 01/26/24 01/26/24 aspirin 81 mg tablet,delayed 81 mg PO DAILY 01/26/24 01/26/24 Unknown release atorvastatin 20 mg tablet 20 mg PO DAILY 01/26/24 01/26/24 Unknown hydrochlorothiazide 25 mg tablet 25 mg PO UD 01/26/24 01/26/24 Unknown iron,carbonyl 65 mg-vitamin C 125 1 tab PO DAILY 01/26/24 01/26/24 Unknown mg tablet,delayed release (Vitron-C) isosorbide dinitrate 20 mg tablet 20 mg PO BID 01/26/24 01/26/24 Unknown metoprolol succinate 25 mg 25 mg PO DAILY 01/26/24 01/26/24 Unknown tablet,extended release 24 hr omeprazole 20 mg capsule,delayed 20 mg PO QAM 01/26/24 01/26/24 Unknown release warfarin 5 mg tablet See Rx Instructions .Route .COMPLEX 01/26/24 01/26/24 Unknown Active Medications Generic Name Dose Route Start Last Admin Trade Name Freq PRN Reason Stop Dose Admin Amlodipine Besylate 2.5 mg 01/27/24 09:00 01/27/24 08:23 Amlodipine Besylate 5 Mg Tab PO 12/02/24 08:59 2.5 mg QAM JACQUELIN Administration Atorvastatin Calcium 20 mg 01/27/24 09:00 01/29/24 08:20 Atorvastatin 20 Mg Tab PO 02/26/24 08:59 20 mg DAILY JACQUELIN Administration Furosemide 40 mg 01/27/24 09:00 01/29/24 09:39 Furosemide 40 Mg/4 Ml Vial IV 02/26/24 08:59 40 mg DAILY JACQUELIN Administration Pantoprazole Sodium 40 mg in 10 mls @ 5 mls/min 01/27/24 09:00 01/29/24 09:39 Protonix IV 02/26/24 08:59 5 mls/min BID JACQUELIN Administration Isosorbide Dinitrate 20 mg 01/26/24 17:00 01/27/24 08:23 Isosorbide Dinitrate 20 Mg Tab PO 02/25/24 16:59 20 mg [id number] JACQUELIN Administration Metoprolol Succinate 25 mg 01/27/24 09:00 01/29/24 08:20 Metoprolol Succ 25mg Ext Rel Tab PO 02/26/24 08:59 25 mg DAILY JACQUELIN Administration Potassium Chloride 20 meq 01/27/24 09:00 01/29/24 08:41 Potassium Chloride Crtab 20 Meq Tabcr PO 02/26/24 08:59 20 meq QAM JACQUELIN Administration Social History Smoking Status: Never smoker Do You Dip or Chew Tobacco: No Hx Alcohol Use: No Hx Substance Use: No Physical Exam Vital Signs Last Vital Signs Temp 36.7 C 01/29/24 10:20 Pulse 66 01/29/24 10:20 Resp 16 01/29/24 10:20 BP 145/72 H 01/29/24 10:20 Pulse Ox 91 01/29/24 10:20 O2 Del Method Room Air 01/29/24 10:20 O2 Flow Rate 2 01/29/24 04:08 Testing Laboratory Results 01/29/24 06:25 01/29/24 06:25 PT 15.5 Seconds (9.0-12.0) H 01/29/24 06:25 INR 1.5 (0.9-1.1) H 01/29/24 06:25 APTT 48 Seconds (21-31) H 01/26/24 12:19 Blood Type AB Positive 01/26/24 12:19 Antibody Screen NEGATIVE 01/26/24 12:19 Electrocardiogram Date: 01/27/24 Test Reason : Blood Pressure : */* mmHG Vent. Rate : 65 BPM Atrial Rate : 65 BPM P-R Int : * ms QRS Dur : 104 ms QT Int : 426 ms P-R-T Axes : 90 -56 103 degrees QTcB Int : 443 ms Ventricular-paced rhythm Abnormal ECG When compared with ECG of 30-Jul-1999 21:24, MANUAL COMPARISON REQUIRED PREVIOUS ECG IS INCOMPATIBLE Confirmed by Socorro Galvan ([id number]) on 01/27/2024 7:40:44 PM Chest X-Ray Date: 01/28/24 HISTORY: 88 years-old Male f/u pulm vasc congestion; pleural effusions acute shortness of breath COMPARISON: 01/26/2024 TECHNIQUE: AP view of the chest FINDINGS: Marked cardiomegaly. Unchanged right paratracheal opacity, likely vascular pedicle. Single lead left subclavian pacer. Aortic valvular endograft. Pulmonary vascular congestion. No pneumothorax. Mildly increased size of the small pleural effusions with persistent mild left greater right bibasilar opacities. Degenerative changes of the shoulders and spine are again noted. IMPRESSION: 1. Cardiomegaly with pulmonary vascular congestion. 2. Mildly increased size of the small pleural effusions with persistent bibasilar opacities, likely atelectatic. Echocardiogram Date: 01/26/24 EF: 55-60 LV Function: normal RWMA: + akinetic Other Findings: + atrial enlargement (severe bilateral) and + LVH (moderate) Valvular Disease: + pertinent finding (S/P TAVR)
--- NOTE | 2024-01-29 11:34 | Hospitalist Progress Note ---
Date of Service January 29, 2024 Assessment & Plan (1) Symptomatic anemia: (2) Chronic heart failure with preserved ejection fraction (HFpEF): (3) Atrial fibrillation: (4) HTN (hypertension): (5) Dyslipidemia: (6) CKD (chronic kidney disease), stage III: (7) History of bioprosthetic transcatheter aortic valve implantation (KEILA): (8) Sleep apnea: (9) Prostate cancer: Plan: Patient is 88-year-old male with PMH chronic atrial fibrillation anticoagulated on warfarin, history KEILA in 10/2018, symptomatic s/p pacemaker, chronic diastolic heart failure HTN, dyslipidemia, CKD III, sleep apnea, prostate cancer, obesity presented to ER with c/o exertional SOB. Symptomatic Anemia Hematochezia Exertional SOB In ER afebrile, BP: 170/86, repeat BP: 139/80, P: 82, R: 18, 99% on RA Hgb: 8.1. Outpatient Hgb: 7.8 on 01/23/24 and 9.4 on 12/15/23, 12 on 12/29/22 INR: 3.4 In ER Hemoccult negative stool Suspect multifactorial exertional shortness of breath secondary to symptomatic anemia and acute on chronic HFpEF Clear liquid diet for now GI consulted, appreciate recs -recommending EGD/colonoscopy procedures on 01/29/24 -stating "for the EGD the INR will need to be 3.0 or less and the colonoscopy ideally 1.4 or less." -pt currently on clear liquid diet and getting colo prep PPI BID Anemia panel noting low iron, s/p IV Venofer on 01/27/24 Transfuse pRBCs as needed, per Cardiology for hgb<8 Continue to monitor H/H Stable at this time at 7.8 01/29/2024: Patient's INR down to 1.5 today. Anesthesia requesting patient be transfused IU pRBCs for hemoglobin of 7.4, before EGD and colonoscopy today. Hemoglobin 8.5 on repeat. EGD and colonoscopy performed by GI with no noted bleeding but did note internal hemorrhoids. GI recommending capsule, iron supplementation and that if patient bleeds acutely once more to consider nuclear medicine scan. GI also stating that if needed, no definite contraindication to resuming anticoagulation. Cardiology also noting that GI recommends resuming warfarin. Warfarin resumed. Acute on chronic HFpEF 09/02/2022 echo: EF: 55-59%, small inferior wall motion abnormality with akinesis of the segments. Severe biatrial enlargement, bioprosthetic aortic valve with perivalvular aortic valve prosthesis regurgitation present, mild mitral regurgitation Repeat echo on January 25 noting EF of 55 to 60%, small inferior wall akinesis, moderately increased left ventricular wall thickness, severe biatrial enlargement, status post TAVR, mild MR BNP:388 CXR: +vascular congestion Given 40 mg Lasix IV Monitor I's and O's, daily weight Hold home HCTZ Cardiology consulted, appreciate recs - Lasix 40 mg daily -continue home amlodipine, atorvastatin, isosorbide dinitrate, metoprolol succinate, and potassium supplement Continue to monitor output Chronic Atrial fibrillation Chronic Anticoagulation Anticoagulated on Coumadin INR: 3.4 on admission Per chart review outpatient INR on 01/23/2024 was 3.7. Coumadin has been on hold since 01/23/24 for planned outpatient EGD and colonoscopy on 01/29/24 Held Coumadin, INR persistently >3. Due to need for procedure on 01/29/2024, cardiology recommending dose of vitamin K for reversal on 01/28/2024 with repeat check ordered Warfarin resumed per GI and cardiology recs on 01/29/24 Continue metoprolol succinate Continue to monitor on telemetry Trend PT/INR Right elbow mass Reported right elbow mass for the past couple weeks 01/17/2024: Outpatient right extremity ultrasound: Indeterminate solid mass at lateral aspect of right elbow with internal vascularity. MRI right elbow with and without IV contrast recommended for further characterization Consider further imaging PCP followup HTN Continue to monitor BP in setting of acute blood loss anemia and diuresis Discussed with Cardiology: -at this time continue Toprol and IV diuresis -holding AM amlodipine and Isosorbide -Hold home HCTZ Continue to monitor BP especially in setting of colonoscopy prep and IV diuresis Dyslipidemia Continue atorvastatin CKD III Cr: 1.0 Baseline Cr: 1.2 Avoid nephrotoxic agents Continue to monitor History TAVR Bioprosthetic valve Follows with cardiology Repeat echo as above CEE CPAP at bedtime Prostate CA S/P brachytherapy in 2004 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 SCDs Dispo: PT/OT for further recs Admission and Anticipated Discharge Date Admission Date: January 26, 2024 Subjective patient was seen before his procedures Per anesthesiology, recommending 1 unit of blood be transfused before procedures Patient denying any shortness of breath, chest tightness, palpitations, dizziness States no further episodes of bloody bowel movements Review of Systems Review of Systems: All systems reviewed & are unremarkable except as noted in Subjective Physical Exam Physical Exam: General: Alert, orientedx2 No acute distress Psych: Appropriate mood and affect Neuro: Alert and oriented x2 HEENT: NC/AT CV: RRR, murmur appreciated Resp: Breath sounds clear bilaterally, no increased effort of breathing Abdomen: Soft, nontender Extremities: Edema in lower extremities bilaterally. Results & Data Results & Data Vital Signs (Past 12 Hours) Vital Signs Temp Pulse Pulse Resp BP BP BP 01/29/24 10:58 35.3 C L 73 18 137/71 01/29/24 10:43 36.2 C L 65 18 177/78 H 01/29/24 10:30 36.2 C L 65 18 177/78 H 01/29/24 10:21 36.7 C 66 16 145/72 H 01/29/24 10:20 36.7 C 66 16 145/72 H 01/29/24 10:04 60 01/29/24 07:58 36.8 C 63 16 144/72 H 01/29/24 04:08 36.7 C 60 18 112/58 L 01/29/24 00:29 63 Pulse Ox O2 Del Method O2 Flow Rate 01/29/24 10:58 92 01/29/24 10:43 96 01/29/24 10:30 94 01/29/24 10:21 91 01/29/24 10:20 91 Room Air 01/29/24 10:04 01/29/24 07:58 90 Room Air 01/29/24 04:08 94 Nasal Cannula 2 01/29/24 00:29 (4) HTN (hypertension) Hypertension type: primary hypertension Qualified Code(s): I10 - Essential (primary) hypertension
[2024-01-29 14:43] LABS: iSTAT Hemoglobin 9.5 g/dl (14.0-18.0); iSTAT Ionized Calcium 1.13 mmol/l (1.12-1.32); iSTAT Potassium 3.3 mmol/L (3.3-5.0)
--- NOTE | 2024-01-29 15:14 | GI REPORT ---
[facility] Patient: JIM REYES : 1935 Sex at : Male Age: 88 Years Procedure: Colonoscopy Date: 01/29/2024 Attending Physician: Truong Smith MD Referring MD: Referred Self Indications: - Unexplained iron deficiency anemia Medications: - Monitored Anesthesia Care - See the Anesthesia note for documentation of the administered medications Complications: - No immediate complications. Estimated Blood Loss: - Estimated blood loss: None. Procedure: - ASA Grade Assessment: III - A patient with severe systemic disease. - The adult colonoscope was introduced through the anus and advanced to the cecum, identified by appendiceal orifice and ileocecal valve. - The colonoscopy was somewhat difficult due to a tortuous colon. Successful completion of the procedure was aided by applying abdominal pressure. - The patient tolerated the procedure fairly well. Findings: - Multiple medium-mouthed and large-mouthed diverticula were found in the sigmoid colon and descending colon. - Non-bleeding internal hemorrhoids were found during retroflexion. The hemorrhoids were Grade I (internal hemorrhoids that do not prolapse). Impression: - Diverticulosis in the sigmoid colon and in the descending colon. - Non-bleeding internal hemorrhoids. - No specimens collected. Recommendation: - Return to hospital floor for ongoing care Procedure Code(s): - 15686, Colonoscopy, flexible; diagnostic, including collection of specimen(s) by brushing or washing, when performed (separate procedure) Diagnosis Code(s): - D50.9, Iron deficiency anemia, unspecified - K64.0, First degree hemorrhoids - K57.30, Diverticulosis of large intestine without perforation or abscess without bleeding CPT(R) - 2023 copyright [employer]. All Rights Reserved. The CPT codes, CCI edits and ICD codes generated are intended as suggestions and were generated based on input data. These codes are preliminary and upon feeder catcher review may be revised to meet current compliance and payer requirements. The provider is responsible for the final determination of appropriate codes, and modifiers. Truong Smith MD This document has been electronically signed. Note Initiated:01/29/2024 Note Completed:01/29/2024 3:13 PM \\[email or web address]\[email or web address]\Data\Provation\Results\LIVE\[id number].pdf
--- NOTE | 2024-01-29 15:16 | GI REPORT ---
[facility] Patient: JIM REYES : 1935 Sex at : Male Age: 88 Years Procedure: Upper GI endoscopy Date: 01/29/2024 Attending Physician: Truong Smith MD Referring MD: Referred Self Indications: - Iron deficiency anemia with no gastrointestinal bleeding source identified during previous colonoscopy Medications: - Monitored Anesthesia Care Complications: - No immediate complications. Estimated Blood Loss: - Estimated blood loss: None. Procedure: - ASA Grade Assessment: III - A patient with severe systemic disease. - The egd scope was introduced through the mouth and advanced to the second part of the duodenum. - The upper GI endoscopy was accomplished without difficulty. - The patient tolerated the procedure well. Findings: - The examined esophagus was normal. - The entire examined stomach was normal. - The examined duodenum was normal. Impression: - Normal esophagus. - Normal stomach. - Normal examined duodenum. - No specimens collected. Recommendation: - Return to hospital floor for ongoing care Procedure Code(s): - 90138, Esophagogastroduodenoscopy, flexible, transoral; diagnostic, including collection of specimen(s) by brushing or washing, when performed (separate procedure) Diagnosis Code(s): - D50.9, Iron deficiency anemia, unspecified CPT(R) - 2022 copyright [employer]. All Rights Reserved. The CPT codes, CCI edits and ICD codes generated are intended as suggestions and were generated based on input data. These codes are preliminary and upon remote inpatient coder review may be revised to meet current compliance and payer requirements. The provider is responsible for the final determination of appropriate codes, and modifiers. Truong Smith MD This document has been electronically signed. Note Initiated:01/29/2024 Note Completed:01/29/2024 3:15 PM \\[email or web address]\Central\InterfaceData\Data\Provation\Results\LIVE\[id number]
--- NOTE | 2024-01-29 15:18 | Communication Note ---
Date of Service: January 29, 2024 POST PROCEDURE NOTE See Provation notes for complete reports. Summary: Colonoscopy: Extensive left sided diverticulosis Grade I internal hemorrhoids No fresh or old blood seen throughout exam to cecum Very atonic colon EGD: Normal to second portion of duodenum No fresh or old blood seen throughout the exam Rec: SB Video Capsule Endoscopy as OP Iron therapy If needed - no definite GI contraindication to anticoagulation If bleeds acutely consider NM bleeding scan. IP GI Service will sign off but [facility] notified and will schedule OP SB Video Capsule Endoscopy.
[2024-01-29 16:35] LABS: Hematocrit (blood only) 26.2 % (42.0-52.0); Hemoglobin 8.5 g/dl (14.0-18.0)
[2024-01-29] MEDS: FERROUS SULFATE 325 MG TAB PO SCH (17:12)
[2024-01-29] MEDS: WARFARIN SOD 2.5 MG TAB PO SCH (17:37)
--- NOTE | 2024-01-29 18:58 | Anesthesiology Progress Note ---
Date of Service January 29, 2024 Anesthesia Post Procedure Vital Signs Vital Signs: Temp Pulse Pulse Resp BP BP BP 01/29/24 17:55 60 01/29/24 16:13 36.5 C 62 16 134/71 01/29/24 15:45 60 16 124/71 01/29/24 15:30 61 16 130/69 01/29/24 15:15 67 16 110/67 01/29/24 14:28 01/29/24 14:12 36.7 C 16 143/79 H 01/29/24 12:28 36.7 C 65 18 145/79 H 01/29/24 11:28 36.8 C 65 19 121/70 01/29/24 10:58 35.3 C L 73 18 137/71 01/29/24 10:43 36.2 C L 65 18 177/78 H 01/29/24 10:30 36.2 C L 65 18 177/78 H 01/29/24 10:21 36.7 C 66 16 145/72 H 01/29/24 10:20 36.7 C 66 16 145/72 H 01/29/24 10:04 60 01/29/24 07:58 36.8 C 63 16 144/72 H 01/29/24 04:08 36.7 C 60 18 112/58 L 01/29/24 00:29 63 01/28/24 23:21 36.6 C 64 16 139/79 01/28/24 22:55 01/28/24 19:28 36.8 C 61 16 130/69 Pulse Ox O2 Del Method O2 Flow Rate 01/29/24 17:55 01/29/24 16:13 94 Room Air 01/29/24 15:45 93 Room Air 01/29/24 15:30 98 Oxymask 2 01/29/24 15:15 95 Oxymask 3 01/29/24 14:28 92 Room Air 01/29/24 14:12 89 L Room Air 01/29/24 12:28 90 01/29/24 11:28 94 01/29/24 10:58 92 01/29/24 10:43 96 01/29/24 10:30 94 01/29/24 10:21 91 01/29/24 10:20 91 Room Air 01/29/24 10:04 01/29/24 07:58 90 Room Air 01/29/24 04:08 94 Nasal Cannula 2 01/29/24 00:29 01/28/24 23:21 100 Nasal Cannula 2 01/28/24 22:55 Nasal Cannula 2 01/28/24 19:28 90 Room Air Transfer of Care Handoff Completed per policy Notes Mental Status: alert / awake / arousable Patient Amnestic to Procedure: Yes Nausea / Vomiting: adequately controlled Pain: adequately controlled Airway Patency, RR, SpO2: stable & adequate BP & HR: stable & adequate Hydration State: stable & adequate Anesthetic Complications: no major complications apparent
[2024-01-30] MEDS: ONDANSETRON INJ 2 MG/ML 2 ML VIAL ONE (06:15)
[2024-01-30] MEDS: LIDOCAINE 2% 2 ML VIAL/AMP(20MG/ML) INFIL ONE (06:15)
[2024-01-30] MEDS: PROPOFOL IV EMULSION 10 MG/ML 20 ML VIAL IV ONE (06:15)
[2024-01-30 06:39] LABS: Hematocrit (blood only) 23.2 % (42.0-52.0); Hemoglobin 7.5 g/dl (14.0-18.0); Mean Corpuscular Hemoglobin 26.1 pg (25.0-34.0); Mean Corpuscular Hgb Conc 32.3 g/dL (32.0-36.0); Mean Corpuscular Volume 80.8 fL (80.0-100.0); Mean Platelet Volume 9.1 fL (9.4-12.4); Platelet Count 293 K/uL (130-400); RDW Coefficient of Variation 16.2 % (11.5-14.5); RDW Standard Deviation 48.2 fL (36.4-46.3); Red Blood Count 2.87 M/uL (4.70-6.10); White Blood Count 8.65 K/ul (4.8-10.8)
[2024-01-30 07:02] LABS: INR 1.4 (0.9-1.1); Prothrombin Time 14.5 Seconds (9.0-12.0)
[2024-01-30 07:18] LABS: Albumin Level 2.9 gm/dl (3.4-5.0); Calcium 8.4 mg/dl (8.6-10.3); Creatinine Clr Calc Pharmacy 48.2 ml/min; Globulin 2.8 gm/dl (2.5-4.0); Magnesium 1.7 mg/dl (1.7-2.4); Phosphorus 2.9 mg/dl (2.5-4.9); Potassium 3.3 mmol/L (3.5-5.1); Total Protein 5.7 gm/dl (6.0-8.3)
[2024-01-30] MEDS: FUROSEMIDE 40 MG TAB PO SCH (08:04)
--- NOTE | 2024-01-30 08:32 | Cardiology Progress Note ---
Date of Service January 30, 2024 Assessment & Plan (1) Acute on chronic diastolic heart failure with preserved ejection fraction: (2) Symptomatic anemia: (3) History of bioprosthetic transcatheter aortic valve implantation (KEILA): (4) HTN (hypertension): (5) Elbow mass: Plan 01/26/24: Patient admitted with multifactorial SOB suggestive of acute decompensated HFpEF with evidence of volume overload on exam and symptomatic anemia after recent issues with GI bleeding and anemia. Planned for outpatient colonoscopy on Monday. However, due to worsening symptoms he was referred to the ER for evaluation. History of TAVR with preserved EF per last echo in August 2022. Repeat echo ordered. Chest xray with pulm vascular congestion and hypervolemic on exam. Start IV lasix 40 mg daily Monitor I+O's. Monitor renal function and electrolytes Daily weight with standing scale. history of chronic afib s/p single lead pacemaker due to symptomatic bradycardia. Coumadin has been on hold for 2 days in anticipation of upcoming colonoscopy. Hold coumadin during admission. INR currently 3.4. No need for heparin bridge at this time. Continue metoprolol 25 mg daily Continue ASA, statin, isosorbide, and amlodipine. Hold hctz. Likely transition to loop diuretic upon discharge. Consult GI regarding ongoing anemia and GI bleed. Consider inpatient colonoscopy Monitor Hbg. Transfuse for hbg < 8. 01/27/24: Patient with good diuresis over the last 24 hours per nursing. I+O's not accurately measured. Edema improved Continue IV furosemide 40 mg daily today. Monitor renal function and electrolytes Hbg 7.5. Planning for EGD and colonoscopy on Monday. Coumadin on hold. INR remains 3.5. No need for IV heparin Continue ASA, statin, isosorbide, metoprolol. Amlodipine on hold due to mild hypotension and edema. Echo with stable findings yesterday. 01/28/24: Improved volume status. Continue IV furosemide 40 mg daily for now. Will hold in AM prior to endoscopies. Reassess after procedures. Likely will change from home HCTZ dose to loop diuretic on discharge. Coumadin remains on hold. Hbg stable but low at 7.8 INR remains elevated despite several days of holding coumadin. Vit K 2.5 mg given this morning. Recheck INR later today and repeat dose if needed. Consider IV heparin bridge if INR< 2.0 for stroke/dvt proph. continue to hold isosorbide and amlodipine for mild hypotension Continue ASA, statin, metoprolol. 01/29/2024: -Patient appear near euvolemic on exam. Monitor fluid status very closely in the setting of receiving Blood products -NPO in prep for endoscopies this afternoon. -Coumadin on hold. H/H this AM 7.4/23/7 and INR 1.5. -Continue ASA, Statin, metoprolol, Amlodipine (titrate up as needed for BP control),and isosorbide Dinitrate. Patient will likely need to be discharged on a maintenance dose of loop diuretic pending hospital course. 01/29/22: -Patient appears euvolemic on exam. Continue to monitor fluid status closely as he continues to receive blood products. -No definitive etiology for patient's anemia. Continued follow up with GI. -Management of anemia per primary team. did discuss with patient that warfarin remains on hold, until ok with GI. -Continue ASA, Statin, metoprolol, Amlodipine (titrate up as needed for BP control),and isosorbide Dinitrate. Patient will likely need to be discharged on a maintenance dose of loop diuretic pending hospital course. currently receiving lasix 40mg PO Daily. Case has been discussed with Dr. Palomino. Further recommendations regarding plan of care as per his assessment. I spent a total of 30 minutes on the date of service in preparation, delivery, documentation of the care provided to the patient excluding any time spent in the performance of separately billed services. [facility] Admission and Anticipated Discharge Date Admission Date: January 26, 2024 Supervising Physician Co-Signing Physician Notes I have personally performed a history and physical examination on the patient. I have reviewed the advance practitioner's documentation, and I agree with, and take responsibility for the plan of care. 88-year-old patient seen and examined post colonoscopy and EGD. No obvious bleeding from source identified. Denies signs/symptoms of GI blood loss. Additional 1 unit packed red blood cells transfused today due to hemoglobin below 8.0. Transition IV to oral furosemide 40 mg daily. Warfarin on hold. Monitor H/H. Hematology evaluation pending. Continue amlodipine, atorvastatin, isosorbide dinitrate, metoprolol succinate, and potassium supplement as ordered. Dontae Palomino DO, [facility] Subjective 01/30/2024: Patient seen and examined in follow up today. Feeling well from a cardiac perspective. offers no complaints. HgB this morning was 7.5 and is now 8.2 after another unit of PRBC's Labs, vitals, diagnostics, telemetry and documentation reviewed. Telemetry reviewed showing paced rhythm, no acute events overnight. Review of Systems Review of Systems: All systems reviewed & are unremarkable except as noted in HPI & below Physical Exam Constitutional: well developed and + ill appearing; no acute distress Neck: normal visual inspection and trachea midline Respiratory: normal respiratory effort, lungs clear to auscultation Cardiovascular: Rate/Rhythm: regular rate (paced ) and regular rhythm Heart Sounds: normal S1, normal S2 and + murmur (+2/6 systolic murmur ) Vessels: no JVD Extremities: + edema (+ 1 RLE and Trace LLE. Right is chronic ) Skin: normal turgor and + pallor Psychiatric: A+Ox3, euthymic affect Results & Data Vital Signs (Past 12 Hours) Vital Signs Temp Pulse Pulse Resp BP Pulse Ox O2 Del Method 01/30/24 07:45 Room Air, Nasal Cannula 01/30/24 07:20 36.8 C 65 18 128/73 94 Room Air 01/30/24 07:10 63 01/30/24 03:55 36.9 C 59 L 18 110/55 L 93 Room Air 01/29/24 23:30 36.7 C 60 18 105/60 91 Nasal Cannula 01/29/24 22:44 64 26 H 91 01/29/24 21:54 60 O2 Flow Rate 01/30/24 07:45 01/30/24 07:20 01/30/24 07:10 01/30/24 03:55 01/29/24 23:30 2 01/29/24 22:44 2 01/29/24 21:54 Laboratory Results Cardiac Enzymes 01/30/24 Range/Units 06:01 AST 21 (13-39) U/L Coagulation 01/30/24 Range/Units 06:01 PT 14.5 H (9.0-12.0) Seconds CBC 01/29/24 01/30/24 01/30/24 Range/Units 16:17 06:01 12:48 WBC 8.65 (4.8-10.8) K/ul RBC 2.87 L (4.70-6.10) M/uL Hgb 8.5 L 7.5 L 8.2 L (14.0-18.0) g/dl Hct 26.2 L 23.2 L 25.7 L (42.0-52.0) % Plt Count 293 (130-400) K/uL Comprehensive Metabolic Panel 01/30/24 Range/Units 06:01 Sodium 138 (136-145) mmol/L Potassium 3.3 L (3.5-5.1) mmol/L Chloride 97 L (98-107) mmol/L Carbon Dioxide 34 H (21-32) mmol/L BUN 22 (6-23) mg/dl Creatinine 1.10 (0.6-1.4) mg/dl Glucose 99 (70-99(Fasting)) mg/dl Calcium 8.4 L (8.6-10.3) mg/dl AST 21 (13-39) U/L ALT 13 (7-52) U/L Alkaline Phosphatase 65 (34-104) U/L Total Protein 5.7 L (6.0-8.3) gm/dl Albumin 2.9 L (3.4-5.0) gm/dl Intake and Output 01/29/24 01/30/24 01/30/24 22:59 06:59 14:59 Intake Total 360 / 670 Balance 360 / 670 Intake: Oral 360 / 360 Other: Other Intake Source NPO sips # Unmeasured Voids 1 Weight 84.6 kg Weight Measurement Method Built in [facility] (4) HTN (hypertension) Hypertension type: primary hypertension Qualified Code(s): I10 - Essential (primary) hypertension
--- NOTE | 2024-01-30 11:06 | Hospitalist Progress Note ---
Date of Service January 30, 2024 Assessment & Plan (1) Symptomatic anemia: (2) Chronic heart failure with preserved ejection fraction (HFpEF): (3) Atrial fibrillation: (4) HTN (hypertension): (5) Dyslipidemia: (6) CKD (chronic kidney disease), stage III: (7) History of bioprosthetic transcatheter aortic valve implantation (KEILA): (8) Sleep apnea: (9) Prostate cancer: Plan: Patient is 88-year-old male with PMH chronic atrial fibrillation anticoagulated on warfarin, history KEILA in 10/2018, symptomatic s/p pacemaker, chronic diastolic heart failure HTN, dyslipidemia, CKD III, sleep apnea, prostate cancer, obesity presented to ER with c/o exertional SOB. Symptomatic Anemia Hematochezia Exertional SOB In ER afebrile, BP: 170/86, repeat BP: 139/80, P: 82, R: 18, 99% on RA Hgb: 8.1. Outpatient Hgb: 7.8 on 01/23/24 and 9.4 on 12/15/23, 12 on 12/29/22 INR: 3.4 In ER Hemoccult negative stool Suspect multifactorial exertional shortness of breath secondary to symptomatic anemia and acute on chronic HFpEF Clear liquid diet for now GI consulted, appreciate recs. Recommended/stated the following on Jan 28: "Colonoscopy: Extensive left sided diverticulosis Grade I internal hemorrhoids No fresh or old blood seen throughout exam to cecum Very atonic colon EGD: Normal to second portion of duodenum No fresh or old blood seen throughout the exam Rec: SB Video Capsule Endoscopy as OP Iron therapy If needed - no definite GI contraindication to anticoagulation If bleeds acutely consider NM bleeding scan. IP GI Service will sign off but [facility] notified and will schedule OP SB Video Capsule Endoscopy. " PPI BID Anemia panel noting low iron, s/p IV Venofer on 01/27/24 Transfuse pRBCs as needed, per Cardiology for hgb<8 Continue to monitor H/H Stable at this time 01/29/2024: Patient's INR down to 1.5 today. Anesthesia requesting patient be transfused IU pRBCs for hemoglobin of 7.4, before EGD and colonoscopy today. Hemoglobin 8.5 on repeat. EGD and colonoscopy performed by GI with no noted bleeding but did note internal hemorrhoids. GI recommending capsule, iron supplementation and that if patient bleeds acutely once more to consider nuclear medicine scan. GI also stating that if needed, no definite contraindication to resuming anticoagulation. Cardiology also noting that GI recommends resuming warfarin. Warfarin resumed. 01/30/2024: Patient's hemoglobin down once more in the AM from greater than 8 yesterday. Given possibility for lab error we will repeat once more before transfusing. Hemoglobin on repeat back up to greater than 8. No transfusion given today. Warfarin will be held once more today. Patient also with noted increased oxygen requirement when ambulating, currently requiring 2 L. Stat chest x-ray ordered with concern for now possible pneumonia versus atelectasis, Also noting stable small left pleural effusion. Per nursing, patient has not been using his CPAP ordered nightly as he is not comfortable with it. Respiratory to be contacted. Will get CTA of the chest for further evaluation of acute hypoxic respiratory failure. PE less likely given patient's recent supratherapeutic INR however will follow CT of the chest. CT abdomen pelvis as well for further investigation of a possible bleed as well. Hematology was consulted for further recs, greatly appreciated. Noted repeat labs including iron panel with persistent low iron level. Patient was given IV Venofer on January 26 and this will be repeated again today based on the persistently low iron level. Continue with the oral Ferrous sulfate as well. Peripheral smear was also ordered which noted findings consistent with iron deficiency anemia. Continue to monitor hemoglobin and patient's symptoms. Acute on chronic HFpEF 09/02/2022 echo: EF: 55-59%, small inferior wall motion abnormality with akinesis of the segments. Severe biatrial enlargement, bioprosthetic aortic valve with perivalvular aortic valve prosthesis regurgitation present, mild mitral regurgitation Repeat echo on January 25 noting EF of 55 to 60%, small inferior wall akinesis, moderately increased left ventricular wall thickness, severe biatrial enlargement, status post TAVR, mild MR BNP:388 CXR: +vascular congestion Given 40 mg Lasix IV Monitor I's and O's, daily weight Hold home HCTZ Cardiology consulted, appreciate recs - Lasix 40 mg daily -continue home amlodipine, atorvastatin, isosorbide dinitrate, metoprolol succinate, and potassium supplement Continue to monitor output Chronic Atrial fibrillation Chronic Anticoagulation Anticoagulated on Coumadin INR: 3.4 on admission Per chart review outpatient INR on 01/23/2024 was 3.7. Coumadin has been on hold since 01/23/24 for planned outpatient EGD and colonoscopy on 01/29/24 Held Coumadin, INR persistently >3. Due to need for procedure on 01/29/2024, cardiology recommending dose of vitamin K for reversal on 01/28/2024 with repeat check ordered Warfarin resumed per GI and cardiology recs on 01/29/24, however currently on hold once more Continue metoprolol succinate Continue to monitor on telemetry Trend PT/INR Right elbow mass Reported right elbow mass for the past couple weeks 01/17/2024: Outpatient right extremity ultrasound: Indeterminate solid mass at lateral aspect of right elbow with internal vascularity. MRI right elbow with and without IV contrast recommended for further characterization US soft tissue noting: "5.3 x 3.1 x 4.5 cm complex uniformly hypoechoic circumscribed abnormality of the right elbow which corresponds to the palpable lump. Given lack of color flow, olecranon bursitis with complex contents is favored. A mass is within the differential but considered less likely given lack of color flow. Clinical follow-up to ensure stability/resolution is recommended. If interval enlargement, repeat ultrasound is recommended." Mass is currently asymptomatic, patient without pain. Consider orthopedics follow-up if there are any acute changes PCP followup as well HTN Continue to monitor BP in setting of acute blood loss anemia and diuresis Discussed with Cardiology: -at this time continue Toprol and IV diuresis -holding AM amlodipine and Isosorbide -Hold home HCTZ Continue to monitor BP especially in setting of colonoscopy prep and IV diuresis Dyslipidemia Continue atorvastatin CKD III Cr: 1.0 Baseline Cr: 1.2 Avoid nephrotoxic agents Continue to monitor History TAVR Bioprosthetic valve Follows with cardiology Repeat echo as above CEE CPAP at bedtime reportedly patient has not been using CPAP here Will follow-up with respiratory for alternatives Prostate CA S/P brachytherapy in 2003 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 SCDs Dispo: PT/OT recommending return home Admission and Anticipated Discharge Date Admission Date: January 26, 2024 Subjective Patient was seen in the AM. Sitting up at bedside, anxious for discharge. This morning hemoglobin once more dropped this morning and is back up to greater than 8 on repeat. No transfusion given today. Patient also with new Oxygen requirement when up and ambulating. Requiring 2 L at this time. Coco called this morning with no success. Later updated at bedside. Review of Systems Review of Systems: All systems reviewed & are unremarkable except as noted in Subjective Physical Exam Physical Exam: General: Alert, orientedx2 No acute distress Psych: Appropriate mood and affect Neuro: Alert and oriented x2 HEENT: NC/AT CV: RRR, murmur appreciated Resp: Breath sounds clear bilaterally, no increased effort of breathing Abdomen: Soft, nontender Extremities: Edema in lower extremities bilaterally. Results & Data Results & Data Vital Signs (Past 12 Hours) Vital Signs Temp Pulse Pulse Resp BP Pulse Ox O2 Del Method 01/30/24 10:55 36.5 C 64 18 122/61 96 Room Air, Nasal Cannula 01/30/24 07:45 Room Air, Nasal Cannula 01/30/24 07:20 36.8 C 65 18 128/73 94 Room Air 01/30/24 07:10 63 01/30/24 03:55 36.9 C 59 L 18 110/55 L 93 Room Air 01/29/24 23:30 36.7 C 60 18 105/60 91 Nasal Cannula O2 Flow Rate 01/30/24 10:55 01/30/24 07:45 01/30/24 07:20 01/30/24 07:10 01/30/24 03:55 01/29/24 23:30 2 Diagnostic Findings Chest X-Ray 01/26/24 12:44 XR chest 1V portable HISTORY: 88 years-old Male mccloud acute shortness of breath COMPARISON: 11/20/2019 TECHNIQUE: AP view of the chest FINDINGS: Marked cardiomegaly. Single lead left subclavian pacer. Aortic valvular endograft. Pulmonary vascular congestion. No pneumothorax. Trace left pleural effusion with mild linear subsegmental bibasilar densities. Degenerative changes of the shoulders and spine the IMPRESSION: 1. Cardiomegaly with pulmonary vascular congestion. 2. Trace pleural effusions with left basilar predominant opacities suggestive of atelectasis. ACT 112: Negative or not required by law. The above report was generated using voice recognition software. It may contain grammatical, syntax or spelling errors. Electronically signed by: Roc Torre M.D. 01/26/2024 1:06 PM Chest X-Ray 01/28/24 10:10 XR chest 1V portable HISTORY: 88 years-old Male f/u pulm vasc congestion; pleural effusions acute shortness of breath COMPARISON: 01/26/2024 TECHNIQUE: AP view of the chest FINDINGS: Marked cardiomegaly. Unchanged right paratracheal opacity, likely vascular pedicle. Single lead left subclavian pacer. Aortic valvular endograft. Pulmonary vascular congestion. No pneumothorax. Mildly increased size of the small pleural effusions with persistent mild left greater right bibasilar opacities. Degenerative changes of the shoulders and spine are again noted. IMPRESSION: 1. Cardiomegaly with pulmonary vascular congestion. 2. Mildly increased size of the small pleural effusions with persistent bibasilar opacities, likely atelectatic. ACT 112: Negative or not required by law. The above report was generated using voice recognition software. It may contain grammatical, syntax or spelling errors. Electronically signed by: Roc Torre M.D. 01/28/2024 10:35 AM Soft Tissue Ultrasound 01/30/24 09:27 RIGHT ELBOW ULTRASOUND CLINICAL HISTORY: Enlarging right elbow lump. COMPARISON STUDY: No previous studies for comparison. TECHNIQUE: Sonography of the right elbow at site of palpable lump was performed. FINDINGS: At site of palpable lump, there is a corresponding 5.3 x 3.1 x 4.5 cm complex uniformly hypoechoic circumscribed abnormality without color flow. The adjacent soft tissues are unremarkable by sonography. No additional abnormalities are identified IMPRESSION: 5.3 x 3.1 x 4.5 cm complex uniformly hypoechoic circumscribed abnormality of the right elbow which corresponds to the palpable lump. Given la ck of color flow, olecranon bursitis with complex contents is favored. A mass is within the differential but considered less likely given lack of color flow. Clinical follow-up to ensure stability/resolution is recommended. If interval enlargement, repeat ultrasound is recommended. ACT 112: Negative or not required by law. Electronically signed by: Celestine Zepeda M.D. 01/30/2024 12:06 PM Chest X-Ray 01/30/24 12:40 XR chest 1V portable CLINICAL HISTORY: Shortness of breath. COMPARISON STUDY: Chest CT August 29, 2017. Chest radiograph January 28, 2024. FINDINGS: Prosthetic aortic valve and left subclavian pacer are in place. Marked cardiomegaly is unchanged. There is no evidence for pulmonary edema. There is no pneumothorax. Small left pleural effusion is noted. There is persistent left basilar opacity. IMPRESSION: 1. Cardiomegaly without evidence for pulmonary edema. 2. No significant change in a small left pleural effusion with left basilar opacity which could reflect pneumonia or atelectasis. Radiographic follow-up to ensure resolution is recommended. ACT 112: Negative or not required by law. Electronically signed by: Celestine Zepeda M.D. 01/30/2024 1:34 PM (4) HTN (hypertension) Hypertension type: primary hypertension Qualified Code(s): I10 - Essential (primary) hypertension
--- NOTE | 2024-01-30 11:20 | Oncology Consultation ---
Date of Consultation January 30, 2024 Assessment & Plan (1) Anemia: (2) Prostate cancer: Plan -Based on review of his labs, anemia likely due to iron deficiency as well as chronic disease/inflammation. -He has microcytosis with MCV of 80, low transferrin saturation of 7%, serum iro n of 14 suggestive of iron deficiency. Normal ferritin of 279 likely falsely elevated due to recent PRBC transfusion as well as chronic disease/inflammation. -Recommend IV iron daily x 2 doses while inpatient. -Will obtain SPEP with ILYA, quantitative immunoglobulins and serum free light chains to rule out other potential causes of anemia including plasma cell dyscrasia. -Follow-up outpatient with hematology upon discharge to evaluate for response to IV iron. History of Present Illness Reason for Consultation: Anemia Attending Physician: Stephanie Cuenca MD History of Present Illness 88-year-old gentleman with medical history significant for prostate cancer status post brachytherapy in 2003 with recurrence in 2017 for which he is currently on Lupron, also has a history of CKD stage III, atrial fibrillation, hypertension, dyslipidemia. He presented to [facility] with shortness of breath and hematochezia. Labs obtained on admission revealed anemia with hemoglobin of 8.1, hematocrit of 25.2. He underwent upper endoscopy and colonoscopy on 01/29/2024 which was essentially normal except for multiple medium mouthed and large mouthed diverticula, nonbleeding internal hemorrhoids. Hematology was consulted for anemia. He received 1 unit of PRBC transfusion yesterday for symptomatic anemia. Allergies Allergy/AdvReac Type Severity Reaction Status Date / Time No Known Allergies Allergy Verified 01/26/24 14:50 Home Medications Medication Instructions Recorded Confirmed Type acetaminophen 325 mg tablet 325 mg PO DAILY PRN Pain 10/11/18 01/26/24 History cholecalciferol (vitamin D3) 25 1,000 unit PO DAILY 10/11/18 01/26/24 History mcg (1,000 unit) tablet leuprolide acetate (6 month) 45 mg 0 mg IM Q24W 10/11/18 01/26/24 History intramuscular syringe kit (Lupron Depot) amlodipine 2.5 mg tablet 2.5 mg PO QAM 01/26/24 01/26/24 History aspirin 81 mg tablet,delayed 81 mg PO DAILY 01/26/24 01/26/24 History release atorvastatin 20 mg tablet 20 mg PO DAILY 01/26/24 01/26/24 History hydrochlorothiazide 25 mg tablet 25 mg PO UD 01/26/24 01/26/24 History iron,carbonyl 65 mg-vitamin C 125 1 tab PO DAILY 01/26/24 01/26/24 History mg tablet,delayed release (Vitron-C) isosorbide dinitrate 20 mg tablet 20 mg PO BID 01/26/24 01/26/24 History metoprolol succinate 25 mg 25 mg PO DAILY 01/26/24 01/26/24 History tablet,extended release 24 hr omeprazole 20 mg capsule,delayed 20 mg PO QAM 01/26/24 01/26/24 History release warfarin 5 mg tablet See Rx Instructions .Route .COMPLEX 01/26/24 01/26/24 History Patient History Social History Smoking Status: Never smoker Second Hand Exposure: No; Do You Dip or Chew Tobacco: No; Tobacco Cessation Education Requested by Patient: No Hx Alcohol Use: No Hx Substance Use: No Preferred Language: Maltese Communication Ability: Effective Rn Perioperative Required: No Beliefs That Will Affect Care: None Current Living Situation: Spouse Other Information That Helps Us Care for You: No Feels Safe at Home: Yes Safety Concerns: Feels Safe At This Time Assistive Devices: None Results & Data Vital Signs (Past 12 Hours) Vital Signs Temp Pulse Pulse Resp BP Pulse Ox O2 Del Method 01/30/24 10:55 36.5 C 64 18 122/61 96 Room Air, Nasal Cannula 01/30/24 07:45 Room Air, Nasal Cannula 01/30/24 07:20 36.8 C 65 18 128/73 94 Room Air 01/30/24 07:10 63 01/30/24 03:55 36.9 C 59 L 18 110/55 L 93 Room Air 01/29/24 23:30 36.7 C 60 18 105/60 91 Nasal Cannula O2 Flow Rate 01/30/24 10:55 01/30/24 07:45 01/30/24 07:20 01/30/24 07:10 01/30/24 03:55 01/29/24 23:30 2 (1) Anemia Anemia type: unspecified type Qualified Code(s): D64.9 - Anemia, unspecified
--- NOTE | 2024-01-30 12:08 | Ultrasound Report ---
RIGHT ELBOW ULTRASOUND CLINICAL HISTORY: Enlarging right elbow lump. COMPARISON STUDY: No previous studies for comparison. TECHNIQUE: Sonography of the right elbow at site of palpable lump was performed. FINDINGS: At site of palpable lump, there is a corresponding 5.3 x 3.1 x 4.5 cm complex uniformly hyp oechoic circumscribed abnormality without color flow. The adjacent soft tissues are unremarkable by s onography. No additional abnormalities are identified IMPRESSION: 5.3 x 3.1 x 4.5 cm complex uniformly hypoechoic circumscribed abnormality of the right el bow which corresponds to the palpable lump. Given lack of color flow, olecranon bursitis with complex contents is favored. A mass is within the differential but considered less likely given lack of colo r flow. Clinical follow-up to ensure stability/resolution is recommended. If interval enlargement, re peat ultrasound is recommended. ACT 112: Negative or not required by law. Electronically signed by: Celestine Zepeda M.D. 01/30/2024 12:06 PM
[2024-01-30 12:10] LABS: Ferritin 279.7 ng/ml (8-388)
[2024-01-30 12:51] LABS: Folate (Folic Acid),Ser orPlas 11.24 ng/ml (>5.38)
[2024-01-30 13:18] LABS: Hematocrit (blood only) 25.7 % (42.0-52.0); Hemoglobin 8.2 g/dl (14.0-18.0)
--- NOTE | 2024-01-30 13:35 | XRay Report ---
XR chest 1V portable CLINICAL HISTORY: Shortness of breath. COMPARISON STUDY: Chest CT August 29, 2017. Chest radiograph January 28, 2024. FINDINGS: Prosthetic aortic valve and left subclavian pacer are in place. Marked cardiomegaly is unch anged. There is no evidence for pulmonary edema. There is no pneumothorax. Small left pleural effusio n is noted. There is persistent left basilar opacity. IMPRESSION: 1. Cardiomegaly without evidence for pulmonary edema. 2. No significant change in a small left pleural effusion with left basilar opacity which could refle ct pneumonia or atelectasis. Radiographic follow-up to ensure resolution is recommended. ACT 112: Negative or not required by law. Electronically signed by: Celestine Zepeda M.D. 01/30/2024 1:34 PM
[2024-01-30] MEDS: OPTIRAY 320 125ml IV ONE (15:49)
--- NOTE | 2024-01-30 16:17 | CT Scan Report ---
ABDOMEN AND PELVIS CT WITH IV CONTRAST HISTORY: Anemia with cirrhosis r/o bleed, dropping hgb TECHNIQUE: Multiaxial CT images of the abdomen and pelvis were performed following the IV administrat ion of 120 cc of Optiray, A dose lowering technique was utilized adhering to the principles of ALARA . COMPARISON STUDY: CTA chest of same day, CT abdomen and pelvis 08/29/2017 FINDINGS: Marked cardiomegaly with prosthetic aortic valve. Partially imaged cardiac pacer lead. Maritza cardial effusion measures up to 1.3 cm. Moderate left and small right pleural effusions with bibasila r consolidations/atelectasis. No pneumoperitoneum. Subcentimeter hypodense lesion of the spleen is too small to characterize, likely benign. 8 mm hypode nse lesion of the pancreatic tail on image 128 series 6, possibly a side branch IPMN. Thickening of t he left greater than right adrenal glands suggestive of hyperplasia. Sclerotic liver. Patent portal v ein. Hyperdense material noted within the gallbladder suggestive of cholelithiasis. Vicarious excreti on of contrast considered less likely. Subcentimeter cyst of the hepatic dome. Additional probable cy st of the inferior right hepatic lobe. Moderate abdominal pelvic ascites. No hydronephrosis. Exophytic cyst of the inferior pole right kidne y. Indeterminate 1.3 cm lesion of the interpolar kidney with Hounsfield unit of 53. This lesion measu red 7 mm on the prior study. Decompressed bladder with wall thickening and perivesicular stranding. B rachytherapy seeds within the prostate. Atherosclerosis of the aorta without aneurysm. Subcentimeter retroperitoneal lymph nodes. No bowel obstruction or bowel wall thickening. Colonic diverticulosis wi thout acute diverticulitis. Normal appendix. Anasarca. No acute fracture. Minimal right iliopsoas bur sitis. No retroperitoneal hemorrhage. IMPRESSION: 1. Cardiomegaly with left greater than right pleural effusions and pericardial effusion. Please refer to the chest CT of same day for additional findings. 2. Cirrhosis with moderate abdominal pelvic ascites. 3. No bowel obstruction or bowel wall thickening. 4. Cholelithiasis. 5. Indeterminate 1.3 cm lesion of the inferior pole right kidney. Correlation with ultrasound recomme nded in order to exclude a small renal cell carcinoma. 6. Cholelithiasis. 7. No acute retroperitoneal hemorrhage. 8. Additional findings as above. ACT 112: Negative or not required by law. The above report was generated using voice recognition software. It may contain grammatical, syntax o r spelling errors. Electronically signed by: Roc Torre M.D. 01/30/2024 4:15 PM
--- NOTE | 2024-01-30 16:22 | CT Scan Report ---
CT ANGIOGRAPHY OF THE CHEST, PULMONARY EMBOLUS PROTOCOL CLINICAL HISTORY: Drop in hemoglobin. Evaluate for bleed. Evaluate for pulmonary embolus. COMPARISON STUDY: Chest CT August 29, 2017. Chest radiograph performed earlier today. TECHNIQUE: Following IV administration of 120 mL of Optiray, helical axial images of the chest were o btained utilizing the pulmonary embolus protocol. Maximal intensity projections and sagittal and cor onal reformats were viewed on an independent 3D workstation. IV contrast was administered without co mplication. Automated exposure control was utilized for the study. A dose lowering technique was ut ilized adhering to the principles of ALARA. CT DOSE: 2060.25 mGy.cm FINDINGS: A left subclavian pacer is in place and there is an aortic valvular prosthesis. The heart is markedly enlarged. There is a small pericardial effusion. Moderate left and small right pleural ef fusions are present. There is no pneumothorax. Dilatation of the ascending aorta measuring 4.8 cm at the level the main pulmonary artery is noted. No central or lobar pulmonary emboli are identified. Th e segmental and subsegmental pulmonary arteries are suboptimally opacified. Subpleural left lung opac ities favor atelectasis. Linear right basilar opacity also favors atelectasis. There is no consolidat ion to suggest pneumonia. No pathologically enlarged thoracic lymph nodes are present. There are no f ractures within the bony thorax. Upper abdominal ascites is noted. The IVC and hepatic veins are dila vane with reflux of contrast. The abdomen and pelvis CT will be reported separately. IMPRESSION: 1. Marked cardiomegaly. Small pericardial effusion. 2. Moderate left and small right pleural effusions. Associated subpleural opacities favor atelectasis . No consolidation to suggest pneumonia. 3. No pulmonary emboli identified although segmental and subsegmental pulmonary arteries suboptimally assessed due to vessel opacification. 4. 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 ACT 112: Negative or not required by law. Electronically signed by: Celestine Zepeda M.D. 01/30/2024 4:21 PM
[2024-01-30] MEDS: IRON SUCROSE 200 MG in SODIUM CHLORIDE 0.9% 100 ML IV ONE (16:27)
[2024-01-30] MEDS: AMOXICILLIN/CLAVULANATE 875 MG TAB PO SCH (18:26)
[2024-01-31 07:41] LABS: Basophils # (auto) 0.03 K/uL (0.00-0.20); Basophils % (auto) 0.3 %; Eosinophils # (auto) 0.07 K/uL (0.00-0.50); Eosinophils % (auto) 0.7 %; Hematocrit (blood only) 26.1 % (42.0-52.0); Hemoglobin 8.2 g/dl (14.0-18.0); Immature Granulocytes # (auto) 0.07 K/uL (0.01-0.20); Immature Granulocytes % (auto) 0.7 %; Lymphocytes # (auto) 0.92 K/uL (1.20-3.40); Lymphocytes % (auto) 9.6 %; Mean Corpuscular Hemoglobin 26.1 pg (25.0-34.0); Mean Corpuscular Hgb Conc 31.4 g/dL (32.0-36.0); Mean Corpuscular Volume 83.1 fL (80.0-100.0); Mean Platelet Volume 9.2 fL (9.4-12.4); Monocytes # (auto) 0.87 K/uL (0.11-0.59); Monocytes % (auto) 9.1 %; Neutrophils # (auto) 7.64 K/uL (1.40-6.50); Neutrophils % (auto) 79.6 %; Platelet Count 301 K/uL (130-400); RDW Coefficient of Variation 16.7 % (11.5-14.5); RDW Standard Deviation 50.1 fL (36.4-46.3); Red Blood Count 3.14 M/uL (4.70-6.10)
[2024-01-31 07:47] LABS: BUN Creatinine Ratio 19.1 (10-20); Calcium 8.8 mg/dl (8.6-10.3); Immunoglobulin A 127.6 mg/dl (70-400); Immunoglobulin M 40.3 mg/dl (45-281); Magnesium 1.7 mg/dl (1.7-2.4); Phosphorus 2.9 mg/dl (2.5-4.9); Potassium 3.6 mmol/L (3.5-5.1)
[2024-01-31 07:50] LABS: INR 1.4 (0.9-1.1); Prothrombin Time 14.9 Seconds (9.0-12.0)
--- NOTE | 2024-01-31 08:32 | Cardiology Progress Note ---
Date of Service January 31, 2024 Assessment & Plan (1) Acute on chronic diastolic heart failure with preserved ejection fraction: (2) Symptomatic anemia: (3) History of bioprosthetic transcatheter aortic valve implantation (KEILA): (4) HTN (hypertension): (5) Elbow mass: Plan 01/26/24: Patient admitted with multifactorial SOB suggestive of acute decompensated HFpEF with evidence of volume overload on exam and symptomatic anemia after recent issues with GI bleeding and anemia. Planned for outpatient colonoscopy on Monday. However, due to worsening symptoms he was referred to the ER for evaluation. History of TAVR with preserved EF per last echo in August 2022. Repeat echo ordered. Chest xray with pulm vascular congestion and hypervolemic on exam. Start IV lasix 40 mg daily Monitor I+O's. Monitor renal function and electrolytes Daily weight with standing scale. history of chronic afib s/p single lead pacemaker due to symptomatic bradycardia. Coumadin has been on hold for 2 days in anticipation of upcoming colonoscopy. Hold coumadin during admission. INR currently 3.4. No need for heparin bridge at this time. Continue metoprolol 25 mg daily Continue ASA, statin, isosorbide, and amlodipine. Hold hctz. Likely transition to loop diuretic upon discharge. Consult GI regarding ongoing anemia and GI bleed. Consider inpatient colonoscopy Monitor Hbg. Transfuse for hbg < 8. 01/27/24: Patient with good diuresis over the last 24 hours per nursing. I+O's not accurately measured. Edema improved Continue IV furosemide 40 mg daily today. Monitor renal function and electrolytes Hbg 7.5. Planning for EGD and colonoscopy on Monday. Coumadin on hold. INR remains 3.5. No need for IV heparin Continue ASA, statin, isosorbide, metoprolol. Amlodipine on hold due to mild hypotension and edema. Echo with stable findings yesterday. 01/28/24: Improved volume status. Continue IV furosemide 40 mg daily for now. Will hold in AM prior to endoscopies. Reassess after procedures. Likely will change from home HCTZ dose to loop diuretic on discharge. Coumadin remains on hold. Hbg stable but low at 7.8 INR remains elevated despite several days of holding coumadin. Vit K 2.5 mg given this morning. Recheck INR later today and repeat dose if needed. Consider IV heparin bridge if INR< 2.0 for stroke/dvt proph. continue to hold isosorbide and amlodipine for mild hypotension Continue ASA, statin, metoprolol. 01/29/2024: -Patient appear near euvolemic on exam. Monitor fluid status very closely in the setting of receiving Blood products -NPO in prep for endoscopies this afternoon. -Coumadin on hold. H/H this AM 7.4/23/7 and INR 1.5. -Continue ASA, Statin, metoprolol, Amlodipine (titrate up as needed for BP control),and isosorbide Dinitrate. Patient will likely need to be discharged on a maintenance dose of loop diuretic pending hospital course. 01/29/22: -Patient appears euvolemic on exam. Continue to monitor fluid status closely as he continues to receive blood products. -No definitive etiology for patient's anemia. Continued follow up with GI. -Management of anemia per primary team. did discuss with patient that warfarin remains on hold, until ok with GI. -Continue ASA, Statin, metoprolol, Amlodipine (titrate up as needed for BP control),and isosorbide Dinitrate. Patient will likely need to be discharged on a maintenance dose of loop diuretic pending hospital course. currently receiving lasix 40mg PO Daily. Case has been discussed with Dr. Palomino. Further recommendations regarding plan of care as per his assessment. I spent a total of 30 minutes on the date of service in preparation, delivery, documentation of the care provided to the patient excluding any time spent in the performance of separately billed services. [facility] Admission and Anticipated Discharge Date Admission Date: January 26, 2024 Subjective 01/31/2024: Patient seen and examined in follow up today. Feeling Labs, vitals, diagnostics, telemetry and documentation reviewed. Telemetry reviewed showing H/H 10/26/25.1 Physical Exam Constitutional: well developed and + ill appearing; no acute distress Neck: normal visual inspection and trachea midline Respiratory: normal respiratory effort, lungs clear to auscultation Cardiovascular: Rate/Rhythm: regular rate (paced ) and regular rhythm Heart Sounds: normal S1, normal S2 and + murmur (+2/6 systolic murmur ) Vessels: no JVD Extremities: + edema (+ 1 RLE and Trace LLE. Right is chronic ) Skin: normal turgor and + pallor Psychiatric: A+Ox3, euthymic affect Results & Data Vital Signs (Past 12 Hours) Vital Signs Temp Pulse Pulse Resp BP Pulse Ox O2 Del Method 01/31/24 07:12 36.6 C 62 14 145/66 H 93 Nasal Cannula 01/31/24 03:00 36.9 C 76 20 127/68 95 Nasal Cannula 01/30/24 22:22 36.4 C L 60 18 122/65 94 BiPAP O2 Flow Rate 01/31/24 07:12 2 01/31/24 03:00 2 01/30/24 22:22 2 (4) HTN (hypertension) Hypertension type: primary hypertension Qualified Code(s): I10 - Essential (primary) hypertension
--- NOTE | 2024-01-31 11:59 | Cardiology Progress Note ---
Date of Service January 31, 2024 Assessment & Plan (1) Acute on chronic diastolic heart failure with preserved ejection fraction: (2) Symptomatic anemia: (3) History of bioprosthetic transcatheter aortic valve implantation (KEILA): (4) HTN (hypertension): (5) Elbow mass: Plan Intermittent borderline hypotension noted. Discontinue amlodipine. Continue oral furosemide 40 mg daily. Restart warfarin without bridging therapy. Close follow-up with outpatient anticoagulation clinic. Monitor H/H. Hematology evaluation appreciated. Iron supplementation ordered. Continue atorvastatin, isosorbide dinitrate, metoprolol succinate, and potassium supplement as ordered. Admission and Anticipated Discharge Date Admission Date: January 26, 2024 Subjective 88-year-old patient seen and examined at the bedside. Feeling better today. No signs/symptoms of GI/ blood loss. Hemoglobin stable this a.m. Requesting discharge. Denies chest pain or shortness of breath. Review of Systems Review of Systems: All systems reviewed & are unremarkable except as noted in Subjective Physical Exam Constitutional: well nourished; no acute distress Respiratory: no respiratory distress and no retractions Auscultation: lungs clear to auscultation bilaterally; no crackles, no rales, no rhonchi and no wheezes Cardiovascular: Rate/Rhythm: regular rate and regular rhythm Heart Sounds: normal S1 and normal S2; no murmur Vessels: no JVD Extremities: no edema Gastrointestinal (Abdomen): Inspection/Auscultation: normal bowel sounds; abdomen not distended Percussion/Palpation: abdomen soft; abdomen nontender, no guarding and abdomen not rigid Neurologic: CN's II-XI intact bilaterally and moves all extremities; no focal motor deficits Results & Data Vital Signs (Past 12 Hours) Vital Signs Temp Pulse Pulse Pulse Pulse Pulse Resp 01/31/24 10:58 36.6 C 61 14 01/31/24 10:54 36.6 C 76 62 14 01/31/24 10:49 95 H 88 01/31/24 10:22 01/31/24 08:00 60 01/31/24 07:12 36.6 C 62 14 01/31/24 03:00 36.9 C 76 20 Resp Resp BP BP Pulse Ox Pulse Ox Pulse Ox 01/31/24 10:58 106/58 L 90 01/31/24 10:54 145/66 H 125/64 93 01/31/24 10:49 18 16 92 91 01/31/24 10:22 01/31/24 08:00 01/31/24 07:12 145/66 H 93 01/31/24 03:00 127/68 95 O2 Del Method O2 Flow Rate 01/31/24 10:58 Room Air 01/31/24 10:54 01/31/24 10:49 01/31/24 10:22 Nasal Cannula 2 01/31/24 08:00 01/31/24 07:12 Nasal Cannula 2 01/31/24 03:00 Nasal Cannula 2 Laboratory Results Coagulation 01/31/24 Range/Units 06:55 PT 14.9 H (9.0-12.0) Seconds CBC 01/30/24 01/31/24 Range/Units 12:48 06:55 WBC 9.60 (4.8-10.8) K/ul RBC 3.14 L (4.70-6.10) M/uL Hgb 8.2 L 8.2 L (14.0-18.0) g/dl Hct 25.7 L 26.1 L (42.0-52.0) % Plt Count 301 (130-400) K/uL Neut # (Auto) 7.64 H (1.40-6.50) K/uL Lymph # (Auto) 0.92 L (1.20-3.40) K/uL [place] # (Auto) 0.87 H (0.11-0.59) K/uL Eos # (Auto) 0.07 (0.00-0.50) K/uL Baso # (Auto) 0.03 (0.00-0.20) K/uL Comprehensive Metabolic Panel 01/31/24 Range/Units 06:55 Sodium 137 (136-145) mmol/L Potassium 3.6 (3.5-5.1) mmol/L Chloride 95 L (98-107) mmol/L Carbon Dioxide 33 H (21-32) mmol/L BUN 21 (6-23) mg/dl Creatinine 1.10 (0.6-1.4) mg/dl Glucose 104 H (70-99(Fasting)) mg/dl Calcium 8.8 (8.6-10.3) mg/dl Intake and Output 01/30/24 01/31/24 01/31/24 22:59 06:59 14:59 Intake Total 110 / 890 300 / 890 Balance 110 / 890 300 / 890 Intake: IV 110 / 110 Iron Sucrose 200 mg In Sodium 110 / 110 Chloride 0.9% 100 ml @ 220 mls/ hr IV TODAY ONE Rx#:[id number] Oral 300 / 780 Other: # Unmeasured Voids 1 Weight 83.733 kg 83.733 kg Weight Measurement Method Built in [facility] Patient Weight 02/01/24 06:59 Weight 83.733 kg (4) HTN (hypertension) Hypertension type: primary hypertension Qualified Code(s): I10 - Essential (primary) hypertension
--- NOTE | 2024-01-31 13:53 | Discharge Summary ---
Discharge Summary Date of Service January 31, 2024 Principal Dx & Hospital Course #1 = Principal Diagnosis (1) Symptomatic anemia: (2) Chronic heart failure with preserved ejection fraction (HFpEF): (3) Atrial fibrillation: (4) HTN (hypertension): (5) Dyslipidemia: (6) CKD (chronic kidney disease), stage III: (7) History of bioprosthetic transcatheter aortic valve implantation (KEILA): (8) Sleep apnea: (9) Prostate cancer: Patient is 88-year-old male with PMH chronic atrial fibrillation anticoagulated on warfarin, history KEILA in 10/2018, symptomatic s/p pacemaker, chronic diastolic heart failure HTN, dyslipidemia, CKD III, sleep apnea, prostate cancer, obesity presented to ER with c/o exertional SOB. Patient found to have anemia to to low 7s. Patient scoped without stigmata of bleeding in stomach or colon. Iron studies revealed severe iron deficiency. Patient received 2 unit IV venofer while admitted. Patient resumed on coumadin. CT AB noted to have signs of cirrhosis. Encouraged follow up with GI for video swallow and eval for cirrhosis. Patient with no oxygen requirement on 2 step. Symptomatic Anemia Hematochezia Exertional SOB In ER afebrile, BP: 170/86, repeat BP: 139/80, P: 82, R: 18, 99% on RA Hgb: 8.1. Outpatient Hgb: 7.8 on 01/23/24 and 9.4 on 12/15/23, 12 on 12/29/22 INR: 3.4 In ER Hemoccult negative stool Suspect multifactorial exertional shortness of breath secondary to symptomatic anemia and acute on chronic HFpEF Clear liquid diet for now GI consulted, appreciate recs. Recommended/stated the following on Jan 28: "Colonoscopy: Extensive left sided diverticulosis Grade I internal hemorrhoids No fresh or old blood seen throughout exam to cecum Very atonic colon EGD: Normal to second portion of duodenum No fresh or old blood seen throughout the exam Rec: SB Video Capsule Endoscopy as OP Iron therapy If needed - no definite GI contraindication to anticoagulation If bleeds acutely consider NM bleeding scan. IP GI Service will sign off but [facility] notified and will schedule OP SB Video Capsule Endoscopy. " PPI BID Anemia panel noting low iron, s/p IV Venofer on 01/27/24, 01/29 Continue coumadin Acute on chronic HFpEF 09/02/2022 echo: EF: 55-59%, small inferior wall motion abnormality with akinesis of the segments. Severe biatrial enlargement, bioprosthetic aortic valve with perivalvular aortic valve prosthesis regurgitation present, mild mitral regurgitation Repeat echo on January 25 noting EF of 55 to 60%, small inferior wall akinesis, moderately increased left ventricular wall thickness, severe biatrial enlargement, status post TAVR, mild MR BNP:388 CXR: +vascular congestion Given 40 mg Lasix IV Monitor I's and O's, daily weight d/c home HCTZ Cardiology consulted, appreciate recs - Lasix 40 mg daily -continue home amlodipine, atorvastatin, isosorbide dinitrate, metoprolol succinate, and potassium supplement Continue to monitor output Chronic Atrial fibrillation Chronic Anticoagulation Anticoagulated on Coumadin INR: 3.4 on admission Per chart review outpatient INR on 01/23/2024 was 3.7. Coumadin has been on hold since 01/23/24 for planned outpatient EGD and colonoscopy on 01/29/24 Held Coumadin, INR persistently >3. Due to need for procedure on 01/29/2024, cardiology recommending dose of vitamin K for reversal on 01/28/2024 with repeat check ordered Warfarin resumed per GI and cardiology recs on 01/29/24 Continue metoprolol succinate Right elbow mass Reported right elbow mass for the past couple weeks 01/17/2024: Outpatient right extremity ultrasound: Indeterminate solid mass at lateral aspect of right elbow with internal vascularity. MRI right elbow with and without IV contrast recommended for further characterization US soft tissue noting: "5.3 x 3.1 x 4.5 cm complex uniformly hypoechoic circumscribed abnormality of the right elbow which corresponds to the palpable lump. Given lack of color flow, olecranon bursitis with complex contents is favored. A mass is within the differential but considered less likely given lack of color flow. Clinical follow-up to ensure stability/resolution is recommended. If interval enlargement, repeat ultrasound is recommended." Mass is currently asymptomatic, patient without pain. Consider orthopedics follow-up if there are any acute changes PCP followup as well HTN Continue to monitor BP in setting of acute blood loss anemia and diuresis Discussed with Cardiology: -at this time continue Toprol and IV diuresis -holding AM amlodipine and Isosorbide -Hold home HCTZ Continue to monitor BP especially in setting of colonoscopy prep and IV diuresis Dyslipidemia Continue atorvastatin CKD III Cr: 1.0 Baseline Cr: 1.2 Avoid nephrotoxic agents Continue to monitor History TAVR Bioprosthetic valve Follows with cardiology Repeat echo as above CEE CPAP at bedtime reportedly patient has not been using CPAP here Will follow-up with respiratory for alternatives Prostate CA S/P brachytherapy in 2003 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 Correlation with ultrasound recommended in order to exclude a small renal cell carcinoma. -Subcentimeter hypodense lesion of the spleen is too small to characterize, likely benign. 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 -Sclerotic liver. Patent portal vein. GI follow up for video swallow and eval for cirrhosis Medication Changes From Visit d/c HCTZ Start furosemide and postassium supplement Admission HPI Per Admitting Provider Patient is 88-year-old male with PMH chronic atrial fibrillation anticoagulated on warfarin, history KEILA in 10/2018, symptomatic s/p pacemaker, chronic diastolic heart failure HTN, dyslipidemia, CKD III, sleep apnea, prostate cancer, obesity presented to ER with c/o exertional SOB. Patient states has been having intermittent blood in stool. States last week had BM and passed a blood clot. Reports prior to that having pink tinged blood in stool. Since starting iron noticed dark color stools. C/O increased fatigue, dyspnea on exertion for last couple weeks. C/O increased abdominal girth and increased lower extremity past 2 weeks. Patient reports abdomen feels bloated. He reports decreased appetite and decreased oral intake. Reports is lost approximately 10 pounds over the last couple of months. Per outpatient chart review visit with GI on 01/04/24 and patient has been having downtrending hemoglobin, iron deficiency anemia and was placed on oral iron and PPI. He was scheduled to have colonoscopy and endoscopy on 01/29/2024. His Coumadin has been on hold since 01/23/2024 for his upcoming procedure. Seen in cardiology clinic today and felt to have decompensated heart failure and with concerns of progressive anemia patient was referred to ER for further evaluation. Denies fever/chills, diaphoresis, vomiting, diarrhea, DUGAN, dizziness, syncope, CP, SOB, orthopnea, palpitations, cough, sore throat, rhinorrhea, rashes, urinary symptoms. Admission Exam Per Admitting Provider General: no distress, WDWN Head: normocephalic, atraumatic Eyes: conjunctiva non-injected, anicteric ENT: normal inspection external ears, nose, mucous membranes moist Neck: supple, trachea midline Lungs: no respiratory distress, +rales bases bilateraly CV: irregularly irregular, + murmur, 2+ pretibial edema Abd: +distended, normal BS, soft, non-tender Ext: no cyanosis, no calf tenderness, Right elbow with mass without erythema Neuro: A&O x 3, no focal deficits noted, normal affect Skin: warm, dry Discharge Exam Constitutional WD/WN, vitals as above Respiratory normal respiratory effort, lungs clear to auscultation Cardiovascular RRR, no murmur, no edema Gastrointestinal (Abdomen) normal bowel sounds, soft, nontender, no hepatosplenomegaly Updated Medication List Medication Instructions Recorded Confirmed Type acetaminophen 325 mg tablet 325 mg PO DAILY PRN Pain 10/11/18 01/26/24 History cholecalciferol (vitamin D3) 25 1,000 unit PO DAILY 10/11/18 01/26/24 History mcg (1,000 unit) tablet leuprolide acetate (6 month) 45 mg 0 mg IM Q24W 10/11/18 01/26/24 History intramuscular syringe kit (Lupron Depot) amlodipine 2.5 mg tablet 2.5 mg PO QAM 01/26/24 01/26/24 History aspirin 81 mg tablet,delayed 81 mg PO DAILY 01/26/24 01/26/24 History release atorvastatin 20 mg tablet 20 mg PO DAILY 01/26/24 01/26/24 History iron,carbonyl 65 mg-vitamin C 125 1 tab PO DAILY 01/26/24 01/26/24 History mg tablet,delayed release (Vitron-C) isosorbide dinitrate 20 mg tablet 20 mg PO BID 01/26/24 01/26/24 History metoprolol succinate 25 mg 25 mg PO DAILY 01/26/24 01/26/24 History tablet,extended release 24 hr omeprazole 20 mg capsule,delayed 20 mg PO QAM 01/26/24 01/26/24 History release warfarin 5 mg tablet See Rx Instructions .Route .COMPLEX 01/26/24 01/26/24 History ferrous sulfate 325 mg (65 mg 325 mg PO QAM #0 tabs 01/31/24 Rx iron) tablet,delayed release furosemide 40 mg tablet 40 mg PO QAM 30 days #30 tabs 01/31/24 Rx potassium chloride 20 mEq 20 meq PO QAM #30 tabs 01/31/24 Rx tablet,extended release(part/cryst) Hospital Stay Data Consultations 01/26/24 14:03 ED Decision to Admit Stat 01/26/24 16:40 Consult Gastroenterology Routine 01/26/24 16:44 Consult Cardiology Routine 01/30/24 09:26 Consult Hematology Routine Procedures Performed Operation Date: 01/29/24 16:30 Actual Procedures p Colonoscopy - Truong Smith MD s Esophagogastroduodenoscopy - Truong Smith MD Diagnostic Imagining Performed 01/30/24 09:27 US soft tissue ext ltd Routine 01/30/24 14:50 CT Abd and Pelvis [CT abd pelvis IV con only] Urgent 01/30/24 14:54 CT angio chest PE protocol Urgent Pending Results Patient Have Any Pending Studies at Discharge: No Discharge Instructions Given to Patient (Per Discharging Provider) You were admitted for shortness of breath and found to have a low blood count, or anemia. This is thought to be related to very low iron stores. You received two doses of IV iron and will follow up with the Ultrasound Technologist Sonographer. You can continue a daily iron tablet for now. There was a colonoscopy and EGD performed with no clear sign of bleeding. It is recommended your follow up with Gastroenterology for a video swallow test. Also, your CT of your abdomen revealed signs consistent with cirrhosis. This is not always related to alcohol intake. It is recommended you follow up with the Marketing Support Coordinator to discuss further tests and follow up. You were seen by the Stem Shaper given fluid balance. You were started on the following: Lasix (furosemide) 40mg daily Please take a potassium tablet with the diuertic/water pill daily Please discontinue hydrochlorothiazide. 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 Please discuss further imaging not only for the above, but also for the right elbow mass. Total Time Total Time Spent Total Time Spent (In Minutes): 45
[2024-01-31] MEDS ORDERED: WARFARIN SOD 5 MG TAB PO SCH (16:00)
[2024-02-01] MEDS ORDERED: WARFARIN SOD 5 MG TAB PO SCH (16:00)
[2024-02-05 08:37] LABS: Albumin 2.4 g/dL (3.8-4.8); Alpha 1 Globulin 0.6 g/dL (0.2-0.3); Alpha 2 Globulin 0.9 g/dL (0.5-0.9); Beta-1-Globulin 0.4 g/dL (0.4-0.6); Beta-2-Globulin 0.4 g/dL (0.2-0.5); Free Kappa 42.5 mg/L (3.3-19.4); Free Kappa/Lambda Ratio 1.27 (0.26-1.65); Free Lambda 33.4 mg/L (5.7-26.3); Gamma Globulin 0.8 g/dL (0.8-1.7); Monoclonal Protein Band 2 DNR g/dL (NONE DETECTED); Monoclonal Protein Band 3 DNR g/dL (NONE DETECTED); Total Protein 5.5 g/dL (6.1-8.1)
== END 2024-01-31 14:23 | disposition home or self-care (01) | DRG 811 ==
LOC: ED 12:02 → SUATTDRO 14:13 → 2N 14:13 → 2S 01-30 16:16

== ENCOUNTER 2024-03-06 17:34 | Inpatient (IN) ==
[2024-03-06 18:19] LABS: Basophils # (auto) 0.03 K/uL (0.00-0.20); Basophils % (auto) 0.2 %; Eosinophils # (auto) 0.12 K/uL (0.00-0.50); Eosinophils % (auto) 0.7 %; Hemoglobin 7.9 g/dl (14.0-18.0); Immature Granulocytes # (auto) 0.15 K/uL (0.01-0.20); Immature Granulocytes % (auto) 0.9 %; Lymphocytes # (auto) 0.93 K/uL (1.20-3.40); Lymphocytes % (auto) 5.8 %; Mean Corpuscular Hemoglobin 23.7 pg (25.0-34.0); Mean Corpuscular Hgb Conc 30.4 g/dL (32.0-36.0); Mean Corpuscular Volume 78.1 fL (80.0-100.0); Mean Platelet Volume 9.1 fL (9.4-12.4); Monocytes # (auto) 1.36 K/uL (0.11-0.59); Monocytes % (auto) 8.4 %; Neutrophils # (auto) 13.52 K/uL (1.40-6.50); Platelet Count 416 K/uL (130-400); RDW Coefficient of Variation 19.7 % (11.5-14.5); RDW Standard Deviation 55.3 fL (36.4-46.3); Red Blood Count 3.33 M/uL (4.70-6.10); White Blood Count 16.11 K/ul (4.8-10.8)
--- NOTE | 2024-03-06 18:19 | Emergency Department Note ---
Impression & Plan SOB (shortness of breath), Fluid overload, Anemia, Pleural effusion, Leukocytosis ED Provider Note NAME: JIM REYES Jr AGE: 88 SEX: M : 1935 ARRIVES VIA: Walk-In INFORMANT: [Patient][family] ED PROVIDER(S): [Ziyad Zamora MD] CHIEF COMPLAINT: Abnormal labs HISTORY OF PRESENT ILLNESS: The patient is an 88-year-old male who presents to the ER feeling fatigued and somewhat short of breath. He was hospitalized about a month ago for fluid overload and anemia. The patient states that he has noticed his legs are increasingly swollen. He has become increasingly short of breath. His outpatient laboratory values showed a BNP of 6000 and a hemoglobin of 7.3. There also was concern for a left lung effusion. The patient was referred for hospitalization. The patient states that he was not told that he had a GI source for his blood loss. He did receive a transfusion though during his last hospitalization. He reports that his stool was negative for blood. Of note, the patient was told to hold his Coumadin yesterday as his INR was high. PMHx/PSHx/Social Hx: See Below PHYSICAL EXAM: GENERAL: Patient is in no acute distress. HEENT: No acute trauma, normocephalic atraumatic, mucous membranes moist, no nasal congestion. NECK: No stridor, no adenopathy, no meningismus, trachea is midline. LUNGS: Diminished breath sounds on the left, no respiratory distress. HEART: 2/6 systolic murmur, regular rate and rhythm. ABDOMEN: Soft, nontender, no peritonitis. EXTREMITIES: No cyanosis, full range of motion of all the joints without pain or difficulty. Moderate bilateral pedal edema. NEUROLOGIC: Oriented x 3, no acute motor or sensory deficits, no focal weakness. SKIN: No jaundice, no diaphoresis. Pale. DIFFERENTIAL DIAGNOSIS: Anemia, GI bleeding, electrolyte imbalance, heart failure, pleural effusion, among others. EMERGENCY DEPARTMENT PROCEDURES: MEDICAL DECISION MAKING: There is a moderate leukocytosis, this certainly could be consistent with infection. The patient is anemic with a hemoglobin of 7.9. This is below his typical baseline. Platelet count slightly elevated at 416. INR was high at 4, consistent with his Coumadin use. No renal failure. Magnesium is low at 1.5. Lactic acid level was not elevated making sepsis less likely. No concerning liver enzyme elevation. Patient appeared to be in a euthyroid state. ECG showed a ventricular pacemaker, no ischemia. Cardiac enzyme testing x 1 was not consistent with acute cardiac injury. Urinalysis did not show infection. BNP was elevated consistent with fluid overload. On exam, the patient did have pedal edema. A chest x-ray shows a left pleural effusion. The patient presents with anemia, fluid overload and some dyspnea/fatigue. I do think he requires a hospital stay, IV diuresis and hemoglobin trending. With the elevated white blood cell count, underlying infection must also be considered. I spoke with the patient and case management. The on-call hospitalist was consulted. Of note, the patient was given 40 mg of IV Lasix here in the ED to help with his fluid overload. Prior/Outside records/notes reviewed: Outpatient notes describing his complaints, findings and need for ED referral. ECG per my interpretation: Indication was short of breath. The ECG shows a ventricular pacemaker with a rate of 62. There is no ST elevation. No PVCs. The QTc is 420. Continuous Cardiac Monitoring per my interpretation: An order was placed for continuous cardiac monitoring. The monitor shows a rate of 60 with ventricular pacing. Imaging/x-ray results per my interpretation: Chest x-ray shows cardiomegaly with a moderate size left pleural effusion. Chronic Medical/Social conditions affecting care: Advanced age, chronic Coumadin use. Care/Management discussed with: Case management, the on-call hospitalist. Level of care consideration(s): After review of the information above and other included data: --I believe the patient requires escalation of care to admission DISPOSITION: Admission Past Med/Surg History Problem List Leukocytosis (Acute) Pleural effusion (Acute) Anemia (Acute) Fluid overload (Acute) SOB (shortness of breath) (Acute) Supratherapeutic INR Elbow mass Acute on chronic diastolic heart failure with preserved ejection fraction (Acute) History of bioprosthetic transcatheter aortic valve implantation (KEILA) (Acute) CKD (chronic kidney disease), stage III Dyslipidemia HTN (hypertension) Chronic heart failure with preserved ejection fraction (HFpEF) Symptomatic anemia Atrial fibrillation 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 Osteoarthritis Prostate cancer Secondary cancer of lung Sleep apnea Medical History Encounter for pre-operative examination Weakness Anemia Social History Smoking Status: Never smoker Second Hand Exposure: No; Do You Dip or Chew Tobacco: No; Hx Alcohol Use: No Hx Substance Use: No Preferred Language: Surinamese Communication Ability: Effective Veneer Department Manager Required: No Beliefs That Will Affect Care: None Current Living Situation: Spouse Feels Safe at Home: Yes Assistive Devices: CPAP and Glasses Allergies Allergies Allergy/AdvReac Type Severity Reaction Status Date / Time No Known Allergies Allergy Verified 01/26/24 14:50 Home Meds Home Medications Medication Instructions Recorded Confirmed acetaminophen 325 mg tablet 325 mg PO Q6 PRN as directed 10/11/18 03/06/24 cholecalciferol (vitamin D3) 25 1,000 unit PO QAM 10/11/18 03/06/24 mcg (1,000 unit) tablet amlodipine 2.5 mg tablet 2.5 mg PO QAM 01/26/24 03/06/24 aspirin 81 mg tablet,delayed 81 mg PO .ON HOLD 01/26/24 03/06/24 release atorvastatin 20 mg tablet 20 mg PO DAILY 01/26/24 03/06/24 isosorbide dinitrate 20 mg tablet 20 mg PO BID 01/26/24 03/06/24 metoprolol succinate 25 mg 25 mg PO DAILY 01/26/24 03/06/24 tablet,extended release 24 hr omeprazole 20 mg capsule,delayed 20 mg PO QAM 01/26/24 03/06/24 release ferrous sulfate 325 mg (65 mg 325 mg PO QDB 03/06/24 03/06/24 iron) tablet,delayed release furosemide 40 mg tablet 40 mg PO QAM 03/06/24 03/06/24 warfarin 5 mg tablet 5 - 10 mg PO .ON HOLD SINCE 03/0503/06/24 03/06/24 Previous Rx's Medication Instructions Recorded potassium chloride 20 mEq 20 meq PO QAM #30 tabs 01/31/24 tablet,extended release(part/cryst) Results & Data (ED) Vital Signs Vital Signs - 24 hr 03/06/24 17:36 03/06/24 17:58 03/06/24 18:03 Temperature 36.5 C Temperature Source Temporal Artery Scan Pulse Rate 104 H 78 Pulse Rate [Apical] 60 Respiratory Rate 18 32 H Respiratory Effort / Characteristics Spontaneous Labored Respiratory Depth Normal Respiratory Pattern Regular Blood Pressure 131/74 Blood Pressure [Right Arm] 133/75 Blood Pressure Mean 93 Blood Pressure Mean [Right Arm] 94 Pulse Oximetry 98 94 Oxygen Delivery Method Room Air Room Air Sepsis Recent Fever Within 48 Hours No Sepsis New/Unexplained Change in Mental Status N/A Sepsis Action Taken by Nursing No Action Required 03/06/24 18:03 03/06/24 20:00 03/06/24 22:00 Temperature Temperature Source Pulse Rate Pulse Rate [Apical] 64 76 Respiratory Rate 31 H 24 Respiratory Effort / Characteristics Spontaneous Respiratory Depth Normal Normal Respiratory Pattern Blood Pressure Blood Pressure [Right Arm] 141/79 H 128/86 Blood Pressure Mean Blood Pressure Mean [Right Arm] 99 100 Pulse Oximetry 94 90 90 Oxygen Delivery Method Room Air Room Air Room Air Sepsis Recent Fever Within 48 Hours Sepsis New/Unexplained Change in Mental Status Sepsis Action Taken by [facility] Medications Current Medication List: was personally reviewed by me Laboratory Data Attestation: I reviewed the patient's lab results. 03/06/24 23:30 03/06/24 18:01 Lab Results 03/06/24 03/06/24 03/06/24 Range/Units 18:01 18:02 18:57 WBC 16.11 H (4.8-10.8) K/ul RBC 3.33 L (4.70-6.10) M/uL Hgb 7.9 L (14.0-18.0) g/dl Hct 26.0 L (42.0-52.0) % MCV 78.1 L (80.0-100.0) fL MCH 23.7 L (25.0-34.0) pg MCHC 30.4 L (32.0-36.0) g/dL RDW Std Deviation 55.3 H (36.4-46.3) fL RDW Coeff of Judith 19.7 H (11.5-14.5) % Plt Count 416 H (130-400) K/uL MPV 9.1 L (9.4-12.4) fL Immature Gran % (Auto) 0.9 % Neut % (Auto) 84.0 % Lymph % (Auto) 5.8 % [place] % (Auto) 8.4 % Eos % (Auto) 0.7 % Baso % (Auto) 0.2 % Neut # (Auto) 13.52 H (1.40-6.50) K/uL Lymph # (Auto) 0.93 L (1.20-3.40) K/uL [place]er # (Auto) 1.36 H (0.11-0.59) K/uL Eos # (Auto) 0.12 (0.00-0.50) K/uL Baso # (Auto) 0.03 (0.00-0.20) K/uL Immature Gran # (Auto) 0.15 (0.01-0.20) K/uL Polychromasia 1+ Poikilocytosis Present Tear Drop Cells 1+ Ovalocytes 2+ Echinocytes 2+ PT 38.2 H (9.0-12.0) Seconds INR 4.0 H (0.9-1.1) APTT 54 H (21-31) Seconds PTT Ratio 2.0 Sodium 136 (136-145) mmol/L Potassium 3.7 (3.5-5.1) mmol/L Chloride 99 (98-107) mmol/L Carbon Dioxide 28 (21-32) mmol/L Anion Gap 9 (3-11) BUN 21 (6-23) mg/dl Creatinine 0.90 (0.6-1.4) mg/dl Est Cr Clr Drug Dosing 59.8 ml/min eGFR 83.18 BUN/Creatinine Ratio 23.3 H (10-20) Glucose 131 H (70-99(Fasting)) mg/dl Lactate (0.4-2.0) mmol/L Calcium 8.7 (8.6-10.3) mg/dl Magnesium 1.5 L (1.7-2.4) mg/dl Total Bilirubin 0.9 (0.2-1.0) mg/dl AST 22 (13-39) U/L ALT 13 (7-52) U/L Alkaline Phosphatase 113 H (34-104) U/L Troponin I High Sens 11.0 (0-20) pg/ml B-Natriuretic Peptide 281 H (0-100) pg/ml Total Protein 6.7 (6.0-8.3) gm/dl Albumin 2.8 L (3.4-5.0) gm/dl Globulin 3.9 (2.5-4.0) gm/dl Albumin/Globulin Ratio 0.7 L (0.9-2) Procalcitonin 0.37 (0-0.5) ng/ml TSH 3.404 (0.300-4.500) uIu/ml Urine Color Yellow Urine Appearance Clear (Clear) Urine pH 5.0 (4.5-7.5) Ur Specific [place] 1.017 (1.000-1.030) Urine Protein Trace H (Negative) Urine Glucose (UA) Negative (Negative) Urine Ketones Negative (Negative) Urine Blood Negative (Negative) Urine Nitrite Negative (Negative) Urine Bilirubin Negative (Negative) Urine Urobilinogen Negative (Negative) Ur Leukocyte Esterase Negative (Negative) Urine WBC (Auto) 0-5 (0-5) /hpf Urine RBC (Auto) 0-2 (0-2) /hpf U Hyaline Cast (Auto) 11-20 H (0-2) /lpf U Epithel Cells (Auto) 0-2 (0-2) /hpf Urine Bacteria (Auto) None Seen (None Seen) Hyaline Casts Present A (None Presnt) /lpf Blood Type AB Positive Antibody Screen NEGATIVE Crossmatch See Detail 03/06/24 Range/Units 19:47 WBC (4.8-10.8) K/ul RBC (4.70-6.10) M/uL Hgb (14.0-18.0) g/dl Hct (42.0-52.0) % MCV (80.0-100.0) fL MCH (25.0-34.0) pg MCHC (32.0-36.0) g/dL RDW Std Deviation (36.4-46.3) fL RDW Coeff of Judith (11.5-14.5) % Plt Count (130-400) K/uL MPV (9.4-12.4) fL Immature Gran % (Auto) % Neut % (Auto) % Lymph % (Auto) % [place] % (Auto) % Eos % (Auto) % Baso % (Auto) % Neut # (Auto) (1.40-6.50) K/uL Lymph # (Auto) (1.20-3.40) K/uL [place] # (Auto) (0.11-0.59) K/uL Eos # (Auto) (0.00-0.50) K/uL Baso # (Auto) (0.00-0.20) K/uL Immature Gran # (Auto) (0.01-0.20) K/uL Polychromasia Poikilocytosis Tear Drop Cells Ovalocytes Echinocytes PT (9.0-12.0) Seconds INR (0.9-1.1) APTT (21-31) Seconds PTT Ratio Sodium (136-145) mmol/L Potassium (3.5-5.1) mmol/L Chloride (98-107) mmol/L Carbon Dioxide (21-32) mmol/L Anion Gap (3-11) BUN (6-23) mg/dl Creatinine (0.6-1.4) mg/dl Est Cr Clr Drug Dosing ml/min eGFR BUN/Creatinine Ratio (10-20) Glucose (70-99(Fasting)) mg/dl Lactate 1.3 (0.4-2.0) mmol/L Calcium (8.6-10.3) mg/dl Magnesium (1.7-2.4) mg/dl Total Bilirubin (0.2-1.0) mg/dl AST (13-39) U/L ALT (7-52) U/L Alkaline Phosphatase (34-104) U/L Troponin I High Sens (0-20) pg/ml B-Natriuretic Peptide (0-100) pg/ml Total Protein (6.0-8.3) gm/dl Albumin (3.4-5.0) gm/dl Globulin (2.5-4.0) gm/dl Albumin/Globulin Ratio (0.9-2) Procalcitonin (0-0.5) ng/ml TSH (0.300-4.500) uIu/ml Urine Color Urine Appearance (Clear) Urine pH (4.5-7.5) Ur Specific [place] (1.000-1.030) Urine Protein (Negative) Urine Glucose (UA) (Negative) Urine Ketones (Negative) Urine Blood (Negative) Urine Nitrite (Negative) Urine Bilirubin (Negative) Urine Urobilinogen (Negative) Ur Leukocyte Esterase (Negative) Urine WBC (Auto) (0-5) /hpf Urine RBC (Auto) (0-2) /hpf U Hyaline Cast (Auto) (0-2) /lpf U Epithel Cells (Auto) (0-2) /hpf Urine Bacteria (Auto) (None Seen) Hyaline Casts (None Presnt) /lpf Blood Type Antibody Screen Crossmatch Administered Medications Discontinued Medications Albuterol (Albut/Ipratrop 3mg/0.5mg Neb 3 Ml Vial) 3 ml NEB NOW STA; Protocol Stop: 03/06/24 19:50 Last Admin: 03/06/24 20:04 Dose: 3 ml Documented By: JACKI Furosemide (Furosemide 40 Mg/4 Ml Vial) 40 mg IV ONE ONE Stop: 03/06/24 19:12 Last Admin: 03/06/24 19:32 Dose: 40 mg Documented By: JACKI Magnesium Sulfate/Dextrose (Magnesium Sulfate / D5w) 1 gm in 100 mls @ 50 mls/hr IV Q2H JACQUELIN Stop: 03/06/24 23:59 Last Infusion: 03/07/24 00:17 Dose: Infused Documented By: Admin: 03/06/24 22:17 Dose: 50 mls/hr Documented By: Infusion: 03/06/24 22:16 Dose: Infused Documented By: Admin: 03/06/24 20:04 Dose: 50 mls/hr Documented By: JACKI Ioversol (Optiray 320 100ml) 100 ml IV ONCE ONE Stop: 03/06/24 23:14 Last Admin: 03/06/24 23:13 Dose: 93 ml Documented By: TESS Imaging Data Radiologist's Impression: Chest X-Ray 03/06/24 17:53 EXAM: XR chest 1V portable CLINICAL HISTORY: WEAKNESS LDS TECHNIQUE: An X-ray image of the chest is obtained in AP projection. COMPARISON: No prior studies are available for comparison. FINDINGS: Pulmonary Parenchyma: Homogeneous opacity in the left lower lung zone with obscuration of the left cardiac border, left costophrenic angle and left hemidiaphragm. Atelectatic band noted at the right lung base. Heart and Mediastinum: Severe increase in the cardio-thoracic ratio due to global cardiomegaly. A cardiac pacemaker in situ. Bony Thorax: Bony thorax appears intact without fractures or deformities. Soft Tissues: Soft tissues overlying the chest wall are unremarkable. IMPRESSION: 1. Left lower lung zone consolidation with pleural effusion. 2. Atelectatic band at the right lung base. 3. Cardiomegaly. 4. Suggest MRI for further evaluation. Electronically signed by Samir Carlson 03-06-2024 7:40 PM Discharge Plan Visit Data Chief Complaint: Abnormal Labs/Diagnostic Testing Stated Complaint: LEG SWELLING BILATERAL, LABS OFF, ED Provider: Ziyad Zamora Discharge Problem: SOB (shortness of breath), Fluid overload, Anemia, Pleural effusion, Leukocytosis Patient Disposition: Admitted As Inpatient Condition: Fair Discharge Instructions Interventions: ED Discharge Assessment Last Done: 03/06/24 23:11 Discharge Problem: Fluid overload Qualifiers: Hypervolemia type: unspecified Qualified Code(s): E87.70 - Fluid overload, unspecified Anemia Qualifiers: Anemia type: unspecified type Qualified Code(s): D64.9 - Anemia, unspecified Leukocytosis Qualifiers: Leukocytosis type: unspecified Qualified Code(s): D72.829 - Elevated white blood cell count, unspecified
[2024-03-06 18:37] LABS: Albumin Globulin Ratio 0.7 (0.9-2); Albumin Level 2.8 gm/dl (3.4-5.0); BUN Creatinine Ratio 23.3 (10-20); Bilirubin,Total 0.9 mg/dl (0.2-1.0); Calcium 8.7 mg/dl (8.6-10.3); Creatinine Clr Calc Pharmacy 59.8 ml/min; Globulin 3.9 gm/dl (2.5-4.0); Magnesium 1.5 mg/dl (1.7-2.4); Potassium 3.7 mmol/L (3.5-5.1); Total Protein 6.7 gm/dl (6.0-8.3)
[2024-03-06 18:38] LABS: Echinocytes 2+; Ovalocytes 2+; Poikilocytosis Present; Polychromasia 1+; Tear Drop Cells 1+
[2024-03-06 18:51] LABS: Thyroid Stimulating Hormone 3.404 uIu/ml (0.300-4.500)
[2024-03-06 18:54] LABS: Partial Thromboplastin Time 54 Seconds (21-31); Prothrombin Time 38.2 Seconds (9.0-12.0)
[2024-03-06] MEDS: FUROSEMIDE 40 MG/4 ML VIAL IV ONE (19:32)
[2024-03-06 19:40] LABS: Appearance Urine Clear (Clear); Bacteria Urine Automated None Seen (None Seen); Bilirubin Urine Negative (Negative); Blood Urine Negative (Negative); Color Urine Yellow; Epithelial Cell Urine Auto 0-2 /hpf (0-2); Glucose Urine UA Negative (Negative); Hyaline Casts Urine Present /lpf (None Presnt); Ketones Urine Negative (Negative); Leukocyte Esterase Urine Negative (Negative); Nitrite Urine Negative (Negative); Protein Urine Trace (Negative); RBC Urine Automated 0-2 /hpf (0-2); Specific Gravity Urine 1.017 (1.000-1.030); Urobilinogen Urine Negative (Negative); WBC Urine Automated 0-5 /hpf (0-5)
--- NOTE | 2024-03-06 19:41 | XRay Report ---
EXAM: XR chest 1V portable CLINICAL HISTORY: WEAKNESS LDS TECHNIQUE: An X-ray image of the chest is obtained in AP projection. COMPARISON: No prior studies are available for comparison. FINDINGS: Pulmonary Parenchyma: Homogeneous opacity in the left lower lung zone with obscuration of the left cardiac border, left costophrenic angle and left hemidiaphragm. Atelectatic band noted at the right lung base. Heart and Mediastinum: Severe increase in the cardio-thoracic ratio due to global cardiomegaly. A cardiac pacemaker in situ. Bony Thorax: Bony thorax appears intact without fractures or deformities. Soft Tissues: Soft tissues overlying the chest wall are unremarkable. IMPRESSION: 1. Left lower lung zone consolidation with pleural effusion. 2. Atelectatic band at the right lung base. 3. Cardiomegaly. 4. Suggest MRI for further evaluation. Electronically signed by Samir Carlson 03-06-2024 7:40 PM
--- NOTE | 2024-03-06 20:00 | History & Physical Report ---
Date of Service March 06, 2024 History of Present Illness Primary Care Provider: Heron Hutchinson MD Allergies Allergy/AdvReac Type Severity Reaction Status Date / Time No Known Allergies Allergy Verified 01/26/24 14:50 Home Medications Medication Instructions Recorded Confirmed Type acetaminophen 325 mg tablet 325 mg PO DAILY PRN Pain 10/11/18 01/26/24 History cholecalciferol (vitamin D3) 25 1,000 unit PO DAILY 10/11/18 01/26/24 History mcg (1,000 unit) tablet leuprolide acetate (6 month) 45 mg 0 mg IM Q24W 10/11/18 01/26/24 History intramuscular syringe kit (Lupron Depot) amlodipine 2.5 mg tablet 2.5 mg PO QAM 01/26/24 01/26/24 History aspirin 81 mg tablet,delayed 81 mg PO DAILY 01/26/24 01/26/24 History release atorvastatin 20 mg tablet 20 mg PO DAILY 01/26/24 01/26/24 History iron,carbonyl 65 mg-vitamin C 125 1 tab PO DAILY 01/26/24 01/26/24 History mg tablet,delayed release (Vitron-C) isosorbide dinitrate 20 mg tablet 20 mg PO BID 01/26/24 01/26/24 History metoprolol succinate 25 mg 25 mg PO DAILY 01/26/24 01/26/24 History tablet,extended release 24 hr omeprazole 20 mg capsule,delayed 20 mg PO QAM 01/26/24 01/26/24 History release warfarin 5 mg tablet See Rx Instructions .Route .COMPLEX 01/26/24 01/26/24 History ferrous sulfate 325 mg (65 mg 325 mg PO QAM #0 tabs 01/31/24 Rx iron) tablet,delayed release potassium chloride 20 mEq 20 meq PO QAM #30 tabs 01/31/24 Rx tablet,extended release(part/cryst) Past Med/Surg History Problem List (Updated 03/02/24 @ 00:07 by Ramona Mitchell) Elbow mass Acute on chronic diastolic heart failure with preserved ejection fraction (Acute) History of bioprosthetic transcatheter aortic valve implantation (KEILA) (Acute) CKD (chronic kidney disease), stage III Dyslipidemia HTN (hypertension) Chronic heart failure with preserved ejection fraction (HFpEF) Symptomatic anemia Atrial fibrillation 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 Osteoarthritis Prostate cancer Secondary cancer of lung Sleep apnea Medical History (Updated 03/02/24 @ 00:07 by Ramona Mitchell) Encounter for pre-operative examination Weakness Anemia Social History Smoking Status: Never smoker Second Hand Exposure: No; Do You Dip or Chew Tobacco: No; Hx Alcohol Use: No Hx Substance Use: No Preferred Language: Romanian Communication Ability: Effective Manager Title Required: No Beliefs That Will Affect Care: None Current Living Situation: Spouse Feels Safe at Home: Yes Assistive Devices: None Results & Data Results & Data Vital Signs (Past 12 Hours) Vital Signs Temp Pulse Pulse Resp BP BP Pulse Ox 03/06/24 18:03 94 03/06/24 18:03 60 32 H 133/75 94 03/06/24 17:58 78 03/06/24 17:36 36.5 C 104 H 18 131/74 98 O2 Del Method 03/06/24 18:03 Room Air 03/06/24 18:03 Room Air 03/06/24 17:58 03/06/24 17:36 Room Air Diagnostic Findings 02/20 Left pleural effusion some elevation left hemidiaphragm. Suspected atelectatic change left lower lung field. Cardiomegaly. 02/06 Very severe masslike soft tissue swelling at the lateral aspect of the right elbow roughly measuring about 7.4 by 3.5 cm, without internal calcifications and otherwise inadequately assessed with radiographs, with marked rounded soft tissue masslike swelling also seen at the anterior aspect of the elbow on lateral view. Recommend assessment with MRI if no contraindication. No acute fracture or dislocation seen at the right elbow. No definite joint effusion. Question of some erosions along the lateral epicondylar/condylar region of the elbow on frontal view, indeterminate and can be correlated clinically for significance as cannot exclude some early bone involvement of the adjacent mass lesion should it proved to be malignant. Tiny protuberant calcification/enthesophyte at the lateral supracondylar region. Again, recommend cross-sectional imaging for better characterization of the mass and ultimately tissue sampling may be required.
[2024-03-06] MEDS: ALBUT/IPRATROP 3MG/0.5MG NEB 3 ML VIAL NEB STA (20:04)
[2024-03-06] MEDS: MAGNESIUM SULFATE / D5W 1 GM/100 ML BAG IV SCH (20:04)
--- NOTE | 2024-03-06 20:36 | History & Physical Report ---
Date of Service March 06, 2024 Assessment & Plan (1) Acute on chronic diastolic heart failure with preserved ejection fraction: (2) Symptomatic anemia: (3) Supratherapeutic INR: (4) Atrial fibrillation: (5) Elbow mass: (6) HTN (hypertension): (7) Dyslipidemia: (8) CKD (chronic kidney disease), stage III: (9) History of bioprosthetic transcatheter aortic valve implantation (KEILA): (10) Sleep apnea: (11) Prostate cancer: Plan: HPI, ROS, PE completed by Ct Pastor PA-C. Assessment and plan per Dr Georges. See addendum. History of Present Illness Chief Complaint: SOB Primary Care Provider: Heron Hutchinson MD Patient is 88-year-old male with PMH chronic atrial fibrillation anticoagulated on warfarin, history KEILA in 10/2018, symptomatic s/p pacemaker, chronic diastolic heart failure, HTN, dyslipidemia, CKD III, sleep apnea, prostate cancer, obesity presented to ER with c/o exertional SOB. Per inpatient chart review recent history of hospitalization 01/26/2024-01/31/2024 for symptomatic anemia, hematochezia and acute on chronic HFpEF. During that hospitalization GI was consulted and patient had underwent colonoscopy and EGD. He Received IV iron x 2 doses. Cardiology was consulted. Patient was diuresed with IV Lasix and transition to 40 mg Lasix daily with his prior home HCTZ discontinued. Cardiology recommended to continue home amlodipine, metoprolol succinate, isosorbide. Upon discharge warfarin was restarted. Patient family report noted increased exertional SOB recently. Patient states he does feel SOB with exertion through the house but he states he didn't think it was worse than previously. Has noticed increased BLE edema. He think having increased abdominal girth also. He sleeps with one pillow and denies noticing orthopnea. He is to use CPAP however reports hasn't been using. Reports intermittently checking home pulse ox is 87 to 91% on room air. Some slight nonproductive cough reported. He denies noticing palpitations, CP, dizziness, or falls. Patient states taking lasix daily but doesn't feel he is urinating that much. 03/05/2024 INR: 4.9. His home warfarin was held. Patient seen PCPs office today for exertional shortness of breath and reported increased BLE edema and was referred to ER. Patient also has been having ongoing edema/mass to right posterior elbow and was seen by outpatient sports medicine and had attempt at aspiration. Repeat ultrasound right elbow on 01/30/2024: 5.3x 3.1 x 4.5 cm complex uniformly hypoechoic circumscribed abnormality of the right elbow which corresponds to the palpable lump. Given lack of color flow, olecranon bursitis with complex contents is favored. A mass is within the differential but considered less likely given lack of color flow. Clinical follow-up to ensure stability/resolution is recommended. If interval enlargement, repeat ultrasound is recommended. He was scheduled for MRI elbow at [facility] in March 2024 as patient with history of pacemaker Patient reports increased edema to right posterior elbow and states area only tender with palpation. Denies any skin erythema or discharge. 01/26/2024 echo: EF 55-60%, small inferior wall akinesis, moderately increased left ventricular wall thickness, severe biatrial enlargement, s/p TAVR, mild MR Outpatient labs on 03/05/2024 Hgb: 7.3 In ER Today Hgb: 7.9. Hgb was 8.2 on Discharge on 01/31/2024. Allergies Allergy/AdvReac Type Severity Reaction Status Date / Time No Known Allergies Allergy Verified 01/26/24 14:50 Home Medications Medication Instructions Recorded Confirmed Type acetaminophen 325 mg tablet 325 mg PO Q6 PRN as directed 10/11/18 03/06/24 History cholecalciferol (vitamin D3) 25 1,000 unit PO QAM 10/11/18 03/06/24 History mcg (1,000 unit) tablet amlodipine 2.5 mg tablet 2.5 mg PO QAM 01/26/24 03/06/24 History aspirin 81 mg tablet,delayed 81 mg PO .ON HOLD 01/26/24 03/06/24 History release atorvastatin 20 mg tablet 20 mg PO DAILY 01/26/24 03/06/24 History isosorbide dinitrate 20 mg tablet 20 mg PO BID 01/26/24 03/06/24 History metoprolol succinate 25 mg 25 mg PO DAILY 01/26/24 03/06/24 History tablet,extended release 24 hr omeprazole 20 mg capsule,delayed 20 mg PO QAM 01/26/24 03/06/24 History release potassium chloride 20 mEq 20 meq PO QAM #30 tabs 01/31/24 03/06/24 Rx tablet,extended release(part/cryst) ferrous sulfate 325 mg (65 mg 325 mg PO QDB 03/06/24 03/06/24 History iron) tablet,delayed release furosemide 40 mg tablet 40 mg PO QAM 03/06/24 03/06/24 History warfarin 5 mg tablet 5 - 10 mg PO .ON HOLD SINCE 03/0503/06/24 03/06/24 History Past Med/Surg History Problem List Leukocytosis (Acute) Pleural effusion (Acute) Anemia (Acute) Fluid overload (Acute) SOB (shortness of breath) (Acute) Supratherapeutic INR Elbow mass Acute on chronic diastolic heart failure with preserved ejection fraction (Acute) History of bioprosthetic transcatheter aortic valve implantation (KEILA) (Acute) CKD (chronic kidney disease), stage III Dyslipidemia HTN (hypertension) Chronic heart failure with preserved ejection fraction (HFpEF) Symptomatic anemia Atrial fibrillation 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 Osteoarthritis Prostate cancer Secondary cancer of lung Sleep apnea Medical History Encounter for pre-operative examination Weakness Anemia Social History Smoking Status: Never smoker Second Hand Exposure: No; Do You Dip or Chew Tobacco: No; Hx Alcohol Use: No Hx Substance Use: No Preferred Language: Estonian Communication Ability: Effective Evp Strategy Required: No Beliefs That Will Affect Care: None Current Living Situation: Spouse Feels Safe at Home: Yes Assistive Devices: CPAP and Glasses Review of Systems Review of Systems: All systems reviewed & are unremarkable except as noted in HPI & below Physical Exam Physical Exam: General: no distress, WDWN Head: normocephalic, atraumatic Eyes: conjunctiva pale, anicteric ENT: normal inspection external ears, nose, mucous membranes moist Neck: supple, trachea midline Lungs: no respiratory distress sitting in bed, currently 90% on RA, +rales bases bilaterally CV: irregularly irregular, + murmur, 2+ pretibial edema Abd: +distended, normal BS, soft, non-tender Ext: no cyanosis, no calf tenderness, Right elbow with mass approximately size of baseball without erythema, no significant tenderness to palpation, active flexion and extension elbow intact Neuro: A&O x 3, no focal deficits noted, normal affect Skin: pale, warm, dry Results & Data Results & Data Vital Signs (Past 12 Hours) Vital Signs Temp Pulse Pulse Resp BP BP Pulse Ox 03/06/24 18:03 94 03/06/24 18:03 60 32 H 133/75 94 03/06/24 17:58 78 03/06/24 17:36 36.5 C 104 H 18 131/74 98 O2 Del Method 03/06/24 18:03 Room Air 03/06/24 18:03 Room Air 03/06/24 17:58 03/06/24 17:36 Room Air Laboratory Results Short CBC 03/06/24 Range/Units 18:01 WBC 16.11 H (4.8-10.8) K/ul Hgb 7.9 L (14.0-18.0) g/dl Hct 26.0 L (42.0-52.0) % Plt Count 416 H (130-400) K/uL BMP 03/06/24 18:01 Sodium 136 Potassium 3.7 Chloride 99 Carbon Dioxide 28 BUN 21 Creatinine 0.90 Glucose 131 H Calcium 8.7 Liver Function 03/06/24 Range/Units 18:01 Total Bilirubin 0.9 (0.2-1.0) mg/dl AST 22 (13-39) U/L ALT 13 (7-52) U/L Alkaline Phosphatase 113 H (34-104) U/L Albumin 2.8 L (3.4-5.0) gm/dl Urine 03/06/24 Range/Units 18:57 Urine Color Yellow Urine Appearance Clear (Clear) Urine pH 5.0 (4.5-7.5) Ur Specific Kiefer 1.017 (1.000-1.030) Urine Protein Trace H (Negative) Urine Glucose (UA) Negative (Negative) Diagnostic Findings Chest X-Ray 03/06/24 17:53 EXAM: XR chest 1V portable CLINICAL HISTORY: WEAKNESS LDS TECHNIQUE: An X-ray image of the chest is obtained in AP projection. COMPARISON: No prior studies are available for comparison. FINDINGS: Pulmonary Parenchyma: Homogeneous opacity in the left lower lung zone with obscuration of the left cardiac border, left costophrenic angle and left hemidiaphragm. Atelectatic band noted at the right lung base. Heart and Mediastinum: Severe increase in the cardio-thoracic ratio due to global cardiomegaly. A cardiac pacemaker in situ. Bony Thorax: Bony thorax appears intact without fractures or deformities. Soft Tissues: Soft tissues overlying the chest wall are unremarkable. IMPRESSION: 1. Left lower lung zone consolidation with pleural effusion. 2. Atelectatic band at the right lung base. 3. Cardiomegaly. 4. Suggest MRI for further evaluation. Electronically signed by Samir Carlson 03-06-2024 7:40 PM Supervising Physician Co-Signing Physician Notes IM ATTENDING : Patient seen and examined. History obtained from patient, family, and records. Concur with salient points upon review of preceding documentation by Ms. Ct Pastor PA-C. I take responsibility for plan of care below. In addition Right CT elbow showed Heterogeneously enhancing centrally necrotic soft tissue mass measuring proximately 7 x 6.5 x 8 cm. 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 FINAL ASSESSMENT AND PLAN as follows : Acute hypoxemic respiratory failure secondary to decompensated HF History diastolic dysfunction Possibly from CPAP noncompliance, history CEE Underlying pulmonary hypertension Valvular heart disease (mild MR/mild paravalvular bioprosthetic AVR) SSS status post PPM on Coumadin, INR supratherapeutic PVD Acute on chronic anemia, possibly dilutional given fluid retention, FOBT done at the ER was negative Right elbow mass, possible malignancy as per CT cirrhosis on prior imaging Recurrent metastatic prostate CA status post radiation status post androgen deprivation Rx, on Lupron Prediabetes, hemoglobin A1c of 5.04 December 2023 PCU Supplemental O2 Diuretic Rx Strict I/Os, daily weights, CHF education, fluid restriction Patient counseled regarding need to comply with CPAP Rx for CEE Cardiology consult re: recurrent CHF Transfuse PRBC to maintain hemoglobin of at least 8 given history of PVD/symptomatic anemia Orthopedics consult Re: Right elbow mass, abnormal CT Hold Coumadin until patient seen by orthopedics in anticipation of procedure Outpatient GI consult for cirrhosis workup DVT prophylaxis. SCDs while Coumadin on hold DNR as per patient prior directives as per family. Patient family requesting updates providers. Ms. Coco Oliver (), contact numbers # [phone]. Mr. Ziyad Oliver (son), contact #[phone]. Text document was generated using Wish voice recognition software. It may contain grammatical or spelling errors. Kindly contact undersigned for clarification of any documentation item in question. (6) HTN (hypertension) Hypertension type: primary hypertension Qualified Code(s): I10 - Essential (primary) hypertension
[2024-03-06] MEDS ORDERED: ACETAMINOPHEN 325 MG TAB PO PRN (22:22)
[2024-03-06] MEDS: OPTIRAY 320 100ml IV ONE (23:13)
[2024-03-06 23:49] LABS: Hematocrit (blood only) 24.2 % (42.0-52.0); Hemoglobin 7.4 g/dl (14.0-18.0)
--- NOTE | 2024-03-06 23:53 | CT Scan Report ---
Exam(s): CT RIGHT ELBOW With Contrast IV Amt: 93 ml optiray 320 EXAM: CT Right Upper Extremity With Intravenous Contrast, Elbow CLINICAL HISTORY: Reason for exam: enlarging mass. TECHNIQUE: Axial computed tomography images of the right elbow with intravenous contrast. CTDI is 24.91 mGy and DLP is 478.07 mGy-cm. Automated exposure control was utilized for the study. A dose lowering technique was utilized adhering to the principles of ALARA. CONTRAST: Patient received 93 ml optiray 320 of IV contrast COMPARISON: No relevant prior studies available. FINDINGS: Bones/joints: No fracture. No joint effusion. Soft tissues: Heterogeneously enhancing centrally necrotic appearing mass which appears to arise from the brachioradialis muscle measuring proximately 7 x 6.5 x 8 cm. Dilated right upper extremity veins. Nodular appearing liver. Ascites. Stones in the gallbladder. IMPRESSION: Heterogeneously enhancing centrally necrotic soft tissue mass measuring proximately 7 x 6.5 x 8 cm. 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 Electronically signed by: Maurice Chamberlain MD 03/06/24 23:52 PM
[2024-03-07] MEDS ORDERED: SODIUM CHLORIDE 0.9% 50 ML IV PRN (00:04)
[2024-03-07] MEDS ORDERED: SODIUM CHLORIDE 0.9% 100 ML IV PRN (00:04)
[2024-03-07] MEDS: FUROSEMIDE 40 MG/4 ML VIAL IV ONE (02:49)
[2024-03-07 08:04] LABS: Basophils # (auto) 0.03 K/uL (0.00-0.20); Basophils % (auto) 0.2 %; Eosinophils # (auto) 0.05 K/uL (0.00-0.50); Eosinophils % (auto) 0.3 %; Hematocrit (blood only) 25.7 % (42.0-52.0); Hemoglobin 8.2 g/dl (14.0-18.0); Immature Granulocytes # (auto) 0.12 K/uL (0.01-0.20); Immature Granulocytes % (auto) 0.8 %; Lymphocytes # (auto) 0.97 K/uL (1.20-3.40); Lymphocytes % (auto) 6.6 %; Mean Corpuscular Hemoglobin 24.6 pg (25.0-34.0); Mean Corpuscular Hgb Conc 31.9 g/dL (32.0-36.0); Mean Corpuscular Volume 76.9 fL (80.0-100.0); Mean Platelet Volume 9.3 fL (9.4-12.4); Monocytes % (auto) 8.2 %; Neutrophils # (auto) 12.35 K/uL (1.40-6.50); Neutrophils % (auto) 83.9 %; Platelet Count 341 K/uL (130-400); RDW Coefficient of Variation 19.6 % (11.5-14.5); RDW Standard Deviation 54.9 fL (36.4-46.3); Red Blood Count 3.34 M/uL (4.70-6.10); White Blood Count 14.72 K/ul (4.8-10.8)
[2024-03-07 08:17] LABS: BUN Creatinine Ratio 21.4 (10-20); Calcium 8.5 mg/dl (8.6-10.3); Magnesium 1.7 mg/dl (1.7-2.4); Potassium 3.4 mmol/L (3.5-5.1)
[2024-03-07 08:25] LABS: INR 3.7 (0.9-1.1); Prothrombin Time 35.6 Seconds (9.0-12.0)
--- NOTE | 2024-03-07 08:37 | Electrocardiogram Report ---
Test Reason : Blood Pressure : */* mmHG Vent. Rate : 62 BPM Atrial Rate : 62 BPM P-R Int : * ms QRS Dur : 106 ms QT Int : 414 ms P-R-T Axes : 103 -52 115 degrees QTcB Int : 420 ms Ventricular-paced rhythm Abnormal ECG When compared with ECG of 27-Jan-2024 05:06, Vent. rate has decreased by 3 bpm Confirmed by Hermelindo Townsend ([id number]) on 03/07/2024 8:36:42 AM Referred By: REFERRED SELF Confirmed By: Hermelindo Townsend
[2024-03-07] MEDS: METOPROLOL SUCC 25MG EXT REL TAB PO SCH (08:57)
[2024-03-07] MEDS: amLODIPine BESYLATE 5 MG TAB PO SCH (08:57)
[2024-03-07] MEDS: ISOSORBIDE DINITRATE 20 MG TAB PO SCH (08:57)
[2024-03-07] MEDS: ATORVASTATIN 20 MG TAB PO SCH (08:57)
[2024-03-07] MEDS: PANTOprazole 40 MG TAB PO SCH (08:58)
[2024-03-07] MEDS: FUROSEMIDE 40 MG/4 ML VIAL IV SCH (08:58)
[2024-03-07] MEDS: POTASSIUM CHLORIDE CRTAB 20 MEQ TABCR PO SCH (09:08)
--- NOTE | 2024-03-07 10:54 | Hospitalist Progress Note ---
Date of Service March 07, 2024 Assessment & Plan (1) Acute on chronic diastolic heart failure with preserved ejection fraction: (2) Symptomatic anemia: (3) Supratherapeutic INR: (4) Atrial fibrillation: (5) Elbow mass: (6) HTN (hypertension): (7) Dyslipidemia: (8) CKD (chronic kidney disease), stage III: (9) History of bioprosthetic transcatheter aortic valve implantation (KEILA): (10) Sleep apnea: (11) Prostate cancer: Plan Patient is 88-year-old male with PMH chronic atrial fibrillation anticoagulated on warfarin, history KEILA in 10/2018, symptomatic s/p pacemaker, chronic diastolic heart failure, HTN, dyslipidemia, CKD III, sleep apnea, prostate cancer, obesity presented to ER with c/o exertional SOB. Acute hypoxemic respiratory failure secondary to decompensated HF Supplemental O2 Diuretic Rx Strict I/Os, daily weights, CHF education, fluid restriction Cardiology consulted, appreciate recs SSS status post PPM on Coumadin, INR supratherapeutic Hold Coumadin Acute on chronic anemia possibly dilutional given fluid retention FOBT done at the ER was negative Anemia panel if worsening/persistent Transfuse PRBC to maintain hemoglobin of at least 8 given history of PVD/symp tomatic anemia Continue to monitor Right elbow mass possible malignancy as per CT Ortho consult, appreciate recs cirrhosis on prior imaging stable Outpatient GI consult for cirrhosis workup Recurrent metastatic prostate CA status post radiation status post androgen deprivation Rx on Lupron Prediabetes hemoglobin A1c of 5.04 December 2023 DVT prophylaxis. coumadin on hold, INR supratherapeutic currently DNR as per patient prior directives as per family. Dispo: PT/OT for further recs Admission and Anticipated Discharge Date Admission Date: March 06, 2024 Subjective patient was seen in the a.m. laying in bed resting comfortably was not at bedside at the time Denied any chest pain no shortness of breath Review of Systems Review of Systems: All systems reviewed & are unremarkable except as noted in Subjective Physical Exam Physical Exam: General: Alert, orientedx1. No acute distress Psych: Appropriate mood and affect Neuro: No gross deficits HEENT: NC/AT CV: RRR, +murmur Resp: Breath sounds clear bilaterally, no increased effort of breathing Abdomen: Soft, nontender Extremities:edema in lower extremities bilaterally. Results & Data Results & Data Vital Signs (Past 12 Hours) Vital Signs Temp Pulse Pulse Resp BP BP BP 03/07/24 07:44 36.6 C 60 18 138/74 03/07/24 04:10 37 C 60 16 139/73 03/07/24 03:40 37 C 62 16 127/71 03/07/24 02:40 37 C 60 16 118/69 03/07/24 02:10 36.8 C 73 20 145/61 H 03/07/24 01:55 36.5 C 62 18 134/72 03/07/24 01:39 37 C 60 18 114/53 L 03/06/24 23:40 03/06/24 23:40 36.6 C 83 20 129/78 03/06/24 23:39 72 03/06/24 23:11 Pulse Ox O2 Del Method O2 Flow Rate 03/07/24 07:44 94 Nasal Cannula 2 03/07/24 04:10 03/07/24 03:40 96 2 03/07/24 02:40 94 2 03/07/24 02:10 95 2 03/07/24 01:55 93 2 03/07/24 01:39 94 03/06/24 23:40 Nasal Cannula 2 03/06/24 23:40 95 Nasal Cannula 2 03/06/24 23:39 03/06/24 23:11 Nasal Cannula 2 Diagnostic Findings Chest X-Ray 03/06/24 17:53 EXAM: XR chest 1V portable CLINICAL HISTORY: WEAKNESS LDS TECHNIQUE: An X-ray image of the chest is obtained in AP projection. COMPARISON: No prior studies are available for comparison. FINDINGS: Pulmonary Parenchyma: Homogeneous opacity in the left lower lung zone with obscuration of the left cardiac border, left costophrenic angle and left hemidiaphragm. Atelectatic band noted at the right lung base. Heart and Mediastinum: Severe increase in the cardio-thoracic ratio due to global cardiomegaly. A cardiac pacemaker in situ. Bony Thorax: Bony thorax appears intact without fractures or deformities. Soft Tissues: Soft tissues overlying the chest wall are unremarkable. IMPRESSION: 1. Left lower lung zone consolidation with pleural effusion. 2. Atelectatic band at the right lung base. 3. Cardiomegaly. 4. Suggest MRI for further evaluation. Electronically signed by Samir Carlson 03-06-2024 7:[address] 03/06/24 22:21 Exam(s): CT RIGHT ELBOW With Contrast IV Amt: 93 ml optiray 320 EXAM: CT Right Upper Extremity With Intravenous Contrast, Elbow CLINICAL HISTORY: Reason for exam: enlarging mass. TECHNIQUE: Axial computed tomography images of the right elbow with intravenous contrast. CTDI is 24.91 mGy and DLP is 478.07 mGy-cm. Automated exposure control was utilized for the study. A dose lowering technique was utilized adhering to the principles of ALARA. CONTRAST: Patient received 93 ml optiray 320 of IV contrast COMPARISON: No relevant prior studies available. FINDINGS: Bones/joints: No fracture. No joint effusion. Soft tissues: Heterogeneously enhancing centrally necrotic appearing mass which appears to arise from the brachioradialis muscle measuring proximately 7 x 6.5 x 8 cm. Dilated right upper extremity veins. Nodular appearing liver. Ascites. Stones in the gallbladder. IMPRESSION: Heterogeneously enhancing centrally necrotic soft tissue mass measuring proximately 7 x 6.5 x 8 cm. 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 Electronically signed by: Maurice Chamberlain MD 03/06/24 23:52 PM (6) HTN (hypertension) Hypertension type: primary hypertension Qualified Code(s): I10 - Essential (primary) hypertension
--- NOTE | 2024-03-07 12:30 | Cardiology Consultation ---
Date of Consultation March 07, 2024 Assessment & Plan (1) Acute on chronic heart failure with preserved ejection fraction: (2) Leukocytosis: (3) Anemia: (4) Elbow mass: Plan Patient admitted with multifactorial SOB. Evidence of volume overload on exam and left pleural effusion, possible left lung consolidation? Continue furosemide 40 mg IV BID. Monitor I+O's. Significant diuresis/output since admission per nursing staff. Supplement electrolytes. Elevated WBC on arrival. Possible consolidation in left lung with pleural effusion? Consider repeat imaging and initiation of antibiotics? Blood cultures pending Persistent anemia since last admission. Negative colonoscopy and EGG. Treated with iron infusions. Hbg 7.9 on arrival, trending down to 7.4. He received 1 unit PRBC's since admission. hbg this morning at 8.2. INR 4.0 on admission. Coumadin held. INR 3.7 this morning. continue to hold. Elbow mass - ? Possible malignancy. Ortho consult ordered. Case discussed with Dr. Carlson I spent a total of 60 minutes on the date of service in preparation, delivery, and documentation of the care provided to this patient, excluding any time spent in the performance of separately billed services. Lesli Bonilla PA-C Department of Cardiology, [facility] This chart was completed in part utilizing Speech Voice Recognition Software. Grammatical errors, random word insertions, pronoun errors, and incomplete sentences are an occasional consequence of this system due to software limitations, ambient noise, and hardware issues. Any formal questions or concerns about the content, text, or information contained within the body of this dictation should be directly addressed to the provider for clarification. Supervising Physician Co-Signing Physician Notes Pulm attending attestation: Case reviewed with the advanced practitioner. I have personally performed a history and physical examination on the patient. I have reviewed the advanced practitioner's documentation on the date of service referenced in note, and I agree with, and take responsibility for the plan of care. I spent a total of 20 minutes coordinating, documenting, and providing care for this patient excluding time spent in the performance of separately billed services or time spent by another provider. Ron Carlson DO History of Present Illness Reason for Consultation: SOB; CHF Requesting Physician: [facility] Hospital[facility]. Attending Physician: Dr. Carlson History of Present Illness Patient is a complex patient admitted from PCP office with complaints of worseni ng SOB, LE edema. Recent history of hospitalization 01/26/2024-01/31/2024 for symptomatic anemia, hematochezia and acute on chronic HFpEF. During that hospitalization GI was consulted and patient had underwent colonoscopy and EGD. He Received IV iron x 2 doses. Cardiology was consulted. Patient was diuresed with IV Lasix and transition to 40 mg Lasix daily with his prior home HCTZ discontinued. Cardiology recommended to continue home amlodipine, metoprolol succinate, isosorbide. Upon discharge warfarin was restarted. Over the last week or so, increase exertional SOB noted. Patient states he does feel SOB with exertion through the house but he states he didn't think it was worse than previously. Has noticed increased BLE edema, orhtopnea, PND. Oxygen has been low in the 80's at home at times. he reports compliance with medications. He received 1 unit PRBC's for anemia. Hbg now 8.2 this morning Since admission, patient reports improved SOB. Good diuresis. Currently resting comfortably in bed. Denies other cardiac complaints. History includes: 1. Chronic atrial fibrillation 2. Mixed valvular heart disease 3. 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 Moderate to severe mitral and tricuspid insufficiency with elevated pulmonary pressures 6. Preoperative diagnostic cardiac catheterization September 12, 2018 with minor luminal irregularities 7. History of lung CA and prostate CA Allergies Allergy/AdvReac Type Severity Reaction Status Date / Time No Known Allergies Allergy Verified 01/26/24 14:50 Home Medications Medication Instructions Recorded Confirmed Type acetaminophen 325 mg tablet 325 mg PO Q6 PRN as directed 10/11/18 03/06/24 History cholecalciferol (vitamin D3) 25 1,000 unit PO QAM 10/11/18 03/06/24 History mcg (1,000 unit) tablet amlodipine 2.5 mg tablet 2.5 mg PO QAM 01/26/24 03/06/24 History aspirin 81 mg tablet,delayed 81 mg PO .ON HOLD 01/26/24 03/06/24 History release atorvastatin 20 mg tablet 20 mg PO DAILY 01/26/24 03/06/24 History isosorbide dinitrate 20 mg tablet 20 mg PO BID 01/26/24 03/06/24 History metoprolol succinate 25 mg 25 mg PO DAILY 01/26/24 03/06/24 History tablet,extended release 24 hr omeprazole 20 mg capsule,delayed 20 mg PO QAM 01/26/24 03/06/24 History release potassium chloride 20 mEq 20 meq PO QAM #30 tabs 01/31/24 03/06/24 Rx tablet,extended release(part/cryst) ferrous sulfate 325 mg (65 mg 325 mg PO QDB 03/06/24 03/06/24 History iron) tablet,delayed release furosemide 40 mg tablet 40 mg PO QAM 03/06/24 03/06/24 History warfarin 5 mg tablet 5 - 10 mg PO .ON HOLD SINCE 03/0503/06/24 03/06/24 History Patient History Medical History Encounter for pre-operative examination Weakness Anemia Social History Smoking Status: Never smoker Second Hand Exposure: No; Do You Dip or Chew Tobacco: No; Hx Alcohol Use: No Hx Substance Use: No Preferred Language: Kyrgyz Communication Ability: Effective 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 Beliefs That Will Affect Care: None Current Living Situation: Spouse Feels Safe at Home: Yes Assistive Devices: None Review of Systems Review of Systems: All systems reviewed & are unremarkable except as noted in HPI & below Physical Exam Constitutional: WD/WN, vitals as above no acute distress Neck: normal visual inspection Respiratory: normal respiratory effort; no labored breathing Auscultation: + diminished lung sounds; no crackles and no rales Cardiovascular: Rate/Rhythm: + irregularly irregular Heart Sounds: + murmur (II/ systolic murmur) Vessels: + JVD Extremities: + edema (2+ LE edema) Gastrointestinal (Abdomen): normal bowel sounds, soft, nontender, no hepatosplenomegaly Musculoskeletal: no cyanosis or clubbing, extremities motor strength 5/5 Neurologic: PERRL, EOMI, accommodation nl, no face palsy, no dysarthria Results & Data Vital Signs (Past 12 Hours) Vital Signs Temp Pulse Pulse Resp BP BP BP 03/07/24 11:50 36.4 C L 81 19 110/68 03/07/24 07:44 36.6 C 60 18 138/74 03/07/24 04:10 37 C 60 16 139/73 03/07/24 03:40 37 C 62 16 127/71 03/07/24 02:40 37 C 60 16 118/69 03/07/24 02:10 36.8 C 73 20 145/61 H 03/07/24 01:55 36.5 C 62 18 134/72 03/07/24 01:39 37 C 60 18 114/53 L Pulse Ox O2 Del Method O2 Flow Rate 03/07/24 11:50 92 Nasal Cannula 2 03/07/24 07:44 94 Nasal Cannula 2 03/07/24 04:10 03/07/24 03:40 96 2 03/07/24 02:40 94 2 03/07/24 02:10 95 2 03/07/24 01:55 93 2 03/07/24 01:39 94 Laboratory Results Cardiac Enzymes 03/06/24 Range/Units 18:01 AST 22 (13-39) U/L Troponin I High Sens 11.0 (0-20) pg/ml B-Natriuretic Peptide 281 H (0-100) pg/ml Coagulation 03/06/24 03/07/24 Range/Units 18:01 07:41 PT 38.2 H 35.6 H (9.0-12.0) Seconds APTT 54 H (21-31) Seconds B-Natriuretic Peptide 281 H (0-100) pg/ml CBC 03/06/24 03/06/24 03/07/24 Range/Units 18:01 23:30 07:41 WBC 16.11 H 14.72 H (4.8-10.8) K/ul RBC 3.33 L 3.34 L (4.70-6.10) M/uL Hgb 7.9 L 7.4 L 8.2 L (14.0-18.0) g/dl Hct 26.0 L 24.2 L 25.7 L (42.0-52.0) % Plt Count 416 H 341 (130-400) K/uL Neut # (Auto) 13.52 H 12.35 H (1.40-6.50) K/uL Lymph # (Auto) 0.93 L 0.97 L (1.20-3.40) K/uL [place] # (Auto) 1.36 H 1.20 H (0.11-0.59) K/uL Eos # (Auto) 0.12 0.05 (0.00-0.50) K/uL Baso # (Auto) 0.03 0.03 (0.00-0.20) K/uL Comprehensive Metabolic Panel 03/06/24 03/07/24 Range/Units 18:01 07:41 Sodium 136 135 L (136-145) mmol/L Potassium 3.7 3.4 L (3.5-5.1) mmol/L Chloride 99 98 (98-107) mmol/L Carbon Dioxide 28 30 (21-32) mmol/L BUN 21 18 (6-23) mg/dl Creatinine 0.90 0.84 (0.6-1.4) mg/dl Glucose 131 H 108 H (70-99(Fasting)) mg/dl Calcium 8.7 8.5 L (8.6-10.3) mg/dl AST 22 (13-39) U/L ALT 13 (7-52) U/L Alkaline Phosphatase 113 H (34-104) U/L Total Protein 6.7 (6.0-8.3) gm/dl Albumin 2.8 L (3.4-5.0) gm/dl Intake and Output 03/06/24 03/07/24 03/07/24 22:59 06:59 14:59 Intake Total 100 / 810 710 / 810 Output Total 1351 / 1351 Balance 100 / -541 -641 / -541 Intake: IV 100 / 200 100 / 200 Magnesium Sulfate / D5w 1 gm In 100 / 200 100 / 200 100 ml @ 50 mls/hr IV Q2H [facility] Rx#:[id number] Oral 300 / 300 Intake (Blood Product) Amt 310 / 310 Packed Cells, Leukoreduced 310 / 310 Unit [id number] Output: Urine 1350 / 1350 # Bowel Movements Other: # Unmeasured Voids 2 Weight 87.2 kg 81.3 kg Weight Measurement Method Built in Bedscale Standing Scale Diagnostic Findings Telemetry reviewed: atrial fib with ventricular pacing EKG reviewed: Underlying atrial fibrillation with ventricular paced rhythm. Chest X-Ray 03/06/24 17:53 IMPRESSION: 1. Left lower lung zone consolidation with pleural effusion. 2. Atelectatic band at the right lung base. 3. Cardiomegaly. 4. Suggest MRI for further evaluation. Electronically signed by Samir Carlson 03-06-2024 7:[address] 03/06/24 22:21 Exam(s): CT RIGHT ELBOW With Contrast IV Amt: 93 ml optiray 320 EXAM: CT Right Upper Extremity With Intravenous Contrast, Elbow CLINICAL HISTORY: Reason for exam: enlarging mass. TECHNIQUE: Axial computed tomography images of the right elbow with intravenous contrast. CTDI is 24.91 mGy and DLP is 478.07 mGy-cm. Automated exposure control was utilized for the study. A dose lowering technique was utilized adhering to the principles of ALARA. CONTRAST: Patient received 93 ml optiray 320 of IV contrast COMPARISON: No relevant prior studies available. FINDINGS: Bones/joints: No fracture. No joint effusion. Soft tissues: Heterogeneously enhancing centrally necrotic appearing mass which appears to arise from the brachioradialis muscle measuring proximately 7 x 6.5 x 8 cm. Dilated right upper extremity veins. Nodular appearing liver. Ascites. Stones in the gallbladder. IMPRESSION: Heterogeneously enhancing centrally necrotic soft tissue mass measuring proximately 7 x 6.5 x 8 cm. 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 Electronically signed by: Maurice Chamberlain MD 03/06/24 23:52 PM Prior echo report reviewed dated 01/26/24: LVEF 55-60% Small sized inferior wall motion abnormality with akinesis of the segments LV wall thickness is moderately increased S/P TAVR Aortic valve prosthesis gradients are borderline elevated and indeterminant for obstruction Mild paravalvular AI Mild MR Prox ascending aorta at 45 mmHg Bioprosthetic valve gradients unchanged Prox ascending aorta at 4.4 cm Medications Administered Current Inpatient Medications Acetaminophen (Acetaminophen 500 Mg Tab) 500 mg PO Q6H PRN PRN Reason: fever/pain Stop: 04/06/24 09:35 Amlodipine Besylate (Amlodipine Besylate 5 Mg Tab) 2.5 mg PO QAM JACQUELIN Stop: 04/06/24 08:59 Last Admin: 03/07/24 08:57 Dose: 2.5 mg Atorvastatin Calcium (Atorvastatin 20 Mg Tab) 20 mg PO DAILY JACQUELIN Stop: 04/06/24 08:59 Last Admin: 03/07/24 08:57 Dose: 20 mg Furosemide (Furosemide 40 Mg/4 Ml Vial) 40 mg IV BID JACQUELIN Stop: 03/07/24 21:01 Last Admin: 03/07/24 08:58 Dose: 40 mg Isosorbide Dinitrate (Isosorbide Dinitrate 20 Mg Tab) 20 mg PO BID@0700,1200 [facility] Stop: 04/06/24 06:59 Last Admin: 03/07/24 12:14 Dose: 20 mg Metoprolol Succinate (Metoprolol Succ 25mg Ext Rel Tab) 25 mg PO DAILY [facility] Stop: 04/06/24 08:59 Last Admin: 03/07/24 08:57 Dose: 25 mg Pantoprazole Sodium (Pantoprazole 40 Mg Tab) 40 mg PO QAM [facility] Stop: 04/06/24 08:59 Last Admin: 03/07/24 08:58 Dose: 40 mg Potassium Chloride (Potassium Chloride Crtab 20 Meq Tabcr) 20 meq PO BID [facility] Stop: 04/06/24 08:59 Last Admin: 03/07/24 09:08 Dose: 20 meq (2) Leukocytosis Leukocytosis type: unspecified Qualified Code(s): D72.829 - Elevated white b lood cell count, unspecified (3) Anemia Anemia type: unspecified type Qualified Code(s): D64.9 - Anemia, unspecified
--- NOTE | 2024-03-07 14:13 | Orthopedic Consultation ---
Date of Consultation March 07, 2024 Assessment & Plan (1) Elbow mass: I reviewed the patient's ultrasound and his CT scan. There appears to be necrotic tissue in the central area of the mass per radiologist read. He feels that this may be a malignant lesion. I advised the patient of the results. He will need to follow-up with an oncologist, and orthopaedic oncologist. Supervising Physician Co-Signing Physician Notes I saw and examined the patient, reviewed his CT scan, and agree with the radiologist that this mass is concerning for malignancy. I performed the substantive portion of the visit. He needs to follow-up with an orthopedic oncologist as well as a medical oncologist regarding this mass. Patient's family reports that he has follow-up scheduled at [facility] in [place]. Should this fall through her be an adequate he could follow-up with Dr. Michael Draper at [place] who is an orthopedic oncologist. History of Present Illness Reason for Consultation: Right elbow mass Requesting Physician: Kevin Rodriguez MD Attending Physician: Stephanie Cuenca MD History of Present Illness This 88-year-old male seen today in consultation for a right elbow mass. Patient states he is a mass on the outside of his right elbow for several years. He states that it was approximately the size of a grape. However, about 3 months ago the area began to increase in size and now was the size of a baseball. He states it does not hurt and does not affect the range of motion of his upper extremity. He states that he has had an ultrasound done as well as a CT. 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 Currently he denies chest pain, shortness of breath, fever, chills, sweats, nausea, vomiting or difficulty voiding. His reports that he recently had a chest x-ray that showed a lung mass that is getting worked up. Allergies Allergy/AdvReac Type Severity Reaction Status Date / Time No Known Allergies Allergy Verified 01/26/24 14:50 Home Medications Medication Instructions Recorded Confirmed Type acetaminophen 325 mg tablet 325 mg PO Q6 PRN as directed 10/11/18 03/06/24 History cholecalciferol (vitamin D3) 25 1,000 unit PO QAM 10/11/18 03/06/24 History mcg (1,000 unit) tablet amlodipine 2.5 mg tablet 2.5 mg PO QAM 01/26/24 03/06/24 History aspirin 81 mg tablet,delayed 81 mg PO .ON HOLD 01/26/24 03/06/24 History release atorvastatin 20 mg tablet 20 mg PO DAILY 01/26/24 03/06/24 History isosorbide dinitrate 20 mg tablet 20 mg PO BID 01/26/24 03/06/24 History metoprolol succinate 25 mg 25 mg PO DAILY 01/26/24 03/06/24 History tablet,extended release 24 hr omeprazole 20 mg capsule,delayed 20 mg PO QAM 01/26/24 03/06/24 History release potassium chloride 20 mEq 20 meq PO QAM #30 tabs 01/31/24 03/06/24 Rx tablet,extended release(part/cryst) ferrous sulfate 325 mg (65 mg 325 mg PO QDB 03/06/24 03/06/24 History iron) tablet,delayed release furosemide 40 mg tablet 40 mg PO QAM 03/06/24 03/06/24 History warfarin 5 mg tablet 5 - 10 mg PO .ON HOLD SINCE 03/0503/06/24 03/06/24 History Patient History Medical History Encounter for pre-operative examination Weakness Anemia Social History Smoking Status: Never smoker Second Hand Exposure: No; Do You Dip or Chew Tobacco: No; Hx Alcohol Use: No Hx Substance Use: No Preferred Language: Honduran Communication Ability: Effective Scallop Cutter Required: No Beliefs That Will Affect Care: None Current Living Situation: Spouse Feels Safe at Home: Yes Assistive Devices: None Review of Systems Review of Systems: All systems reviewed & are unremarkable except as noted in Subjective Physical Exam Physical Exam: Right elbow: Patient has a baseball sized mass over the lateral aspect of his right elbow that is nontender to palpation. There is no erythema or warmth. There is no palpable fluctuance. Outer margins feel soft but with deep palpation there is firmness within. There are no open skin areas or drainage. Patient has full range of motion of his elbow hand wrist and fingers. His peripheral pulses are 2+. He is neurovascularly intact in right upper extremity. Results & Data Vital Signs (Past 12 Hours) Vital Signs Temp Pulse Pulse Resp BP BP BP 03/07/24 11:50 36.4 C L 81 19 110/68 03/07/24 07:44 36.6 C 60 18 138/74 03/07/24 04:10 37 C 60 16 139/73 03/07/24 03:40 37 C 62 16 127/71 03/07/24 02:40 37 C 60 16 118/69 03/07/24 02:10 36.8 C 73 20 145/61 H Pulse Ox O2 Del Method O2 Flow Rate 03/07/24 11:50 92 Nasal Cannula 2 03/07/24 07:44 94 Nasal Cannula 2 03/07/24 04:10 03/07/24 03:40 96 2 03/07/24 02:40 94 2 03/07/24 02:10 95 2 Diagnostic Findings Laboratory Results WBC 14.72 K/ul (4.8-10.8) H 03/07/24 07:41 RBC 3.34 M/uL (4.70-6.10) L 03/07/24 07:41 Hgb 8.2 g/dl (14.0-18.0) L 03/07/24 07:41 Hct 25.7 % (42.0-52.0) L 03/07/24 07:41 MCV 76.9 fL (80.0-100.0) L 03/07/24 07:41 MCH 24.6 pg (25.0-34.0) L 03/07/24 07:41 MCHC 31.9 g/dL (32.0-36.0) L 03/07/24 07:41 RDW Std Deviation 54.9 fL (36.4-46.3) H 03/07/24 07:41 RDW Coeff of Judith 19.6 % (11.5-14.5) H 03/07/24 07:41 Plt Count 341 K/uL (130-400) 03/07/24 07:41 MPV 9.3 fL (9.4-12.4) L 03/07/24 07:41 Immature Gran % (Auto) 0.8 % 03/07/24 07:41 Neut % (Auto) 83.9 % 03/07/24 07:41 Lymph % (Auto) 6.6 % 03/07/24 07:41 [place] % (Auto) 8.2 % 03/07/24 07:41 Eos % (Auto) 0.3 % 03/07/24 07:41 Baso % (Auto) 0.2 % 03/07/24 07:41 Neut # (Auto) 12.35 K/uL (1.40-6.50) H 03/07/24 07:41 Lymph # (Auto) 0.97 K/uL (1.20-3.40) L 03/07/24 07:41 [place] # (Auto) 1.20 K/uL (0.11-0.59) H 03/07/24 07:41 Eos # (Auto) 0.05 K/uL (0.00-0.50) 03/07/24 07:41 Baso # (Auto) 0.03 K/uL (0.00-0.20) 03/07/24 07:41 Immature Gran # (Auto) 0.12 K/uL (0.01-0.20) 03/07/24 07:41 Polychromasia 1+ 03/06/24 18:01 Poikilocytosis Present 03/06/24 18:01 Tear Drop Cells 1+ 03/06/24 18:01 Ovalocytes 2+ 03/06/24 18:01 Echinocytes 2+ 03/06/24 18:01 PT 35.6 Seconds (9.0-12.0) H 03/07/24 07:41 INR 3.7 (0.9-1.1) H 03/07/24 07:41 APTT 54 Seconds (21-31) H 03/06/24 18:01 PTT Ratio 2.0 03/06/24 18:01 Sodium 135 mmol/L (136-145) L 03/07/24 07:41 Potassium 3.4 mmol/L (3.5-5.1) L 03/07/24 07:41 Chloride 98 mmol/L (98-107) 03/07/24 07:41 Carbon Dioxide 30 mmol/L (21-32) 03/07/24 07:41 Anion Gap 7 (3-11) 03/07/24 07:41 BUN 18 mg/dl (6-23) 03/07/24 07:41 Creatinine 0.84 mg/dl (0.6-1.4) 03/07/24 07:41 Est Cr Clr Drug Dosing 62.0 ml/min 03/07/24 07:41 eGFR 84.93 03/07/24 07:41 BUN/Creatinine Ratio 21.4 (10-20) H 03/07/24 07:41 Glucose 108 mg/dl (70-99(Fasting)) H 03/07/24 07:41 Lactate 1.3 mmol/L (0.4-2.0) 03/06/24 19:47 Calcium 8.5 mg/dl (8.6-10.3) L 03/07/24 07:41 Magnesium 1.7 mg/dl (1.7-2.4) 03/07/24 07:41 Total Bilirubin 0.9 mg/dl (0.2-1.0) 03/06/24 18:01 AST 22 U/L (13-39) 03/06/24 18:01 ALT 13 U/L (7-52) 03/06/24 18:01 Alkaline Phosphatase 113 U/L (34-104) H 03/06/24 18:01 Troponin I High Sens 11.0 pg/ml (0-20) 03/06/24 18:01 B-Natriuretic Peptide 281 pg/ml (0-100) H 03/06/24 18:01 Total Protein 6.7 gm/dl (6.0-8.3) 03/06/24 18:01 Albumin 2.8 gm/dl (3.4-5.0) L 03/06/24 18:01 Globulin 3.9 gm/dl (2.5-4.0) 03/06/24 18:01 Albumin/Globulin Ratio 0.7 (0.9-2) L 03/06/24 18:01 Procalcitonin 0.37 ng/ml (0-0.5) 03/06/24 18:02 TSH 3.404 uIu/ml (0.300-4.500) 03/06/24 18:01 Urine Color Yellow 03/06/24 18:57 Urine Appearance Clear (Clear) 03/06/24 18:57 Urine pH 5.0 (4.5-7.5) 03/06/24 18:57 Ur Specific [place] 1.017 (1.000-1.030) 03/06/24 18:57 Urine Protein Trace (Negative) H 03/06/24 18:57 Urine Glucose (UA) Negative (Negative) 03/06/24 18:57 Urine Ketones Negative (Negative) 03/06/24 18:57 Urine Blood Negative (Negative) 03/06/24 18:57 Urine Nitrite Negative (Negative) 03/06/24 18:57 Urine Bilirubin Negative (Negative) 03/06/24 18:57 Urine Urobilinogen Negative (Negative) 03/06/24 18:57 Ur Leukocyte Esterase Negative (Negative) 03/06/24 18:57 Urine WBC (Auto) 0-5 /hpf (0-5) 03/06/24 18:57 Urine RBC (Auto) 0-2 /hpf (0-2) 03/06/24 18:57 U Hyaline Cast (Auto) 11-20 /lpf (0-2) H 03/06/24 18:57 U Epithel Cells (Auto) 0-2 /hpf (0-2) 03/06/24 18:57 Urine Bacteria (Auto) None Seen (None Seen) 03/06/24 18:57 Hyaline Casts Present /lpf (None Presnt) A 03/06/24 18:57 Blood Type AB Positive 03/06/24 18:01 Antibody Screen NEGATIVE 03/06/24 18:01 Crossmatch See Detail 03/06/24 18:01 Impressions Chest X-Ray 03/06/24 17:53 EXAM: XR chest 1V portable CLINICAL HISTORY: WEAKNESS LDS TECHNIQUE: An X-ray image of the chest is obtained in AP projection. COMPARISON: No prior studies are available for comparison. FINDINGS: Pulmonary Parenchyma: Homogeneous opacity in the left lower lung zone with obscuration of the left cardiac border, left costophrenic angle and left hemidiaphragm. Atelectatic band noted at the right lung base. Heart and Mediastinum: Severe increase in the cardio-thoracic ratio due to global cardiomegaly. A cardiac pacemaker in situ. Bony Thorax: Bony thorax appears intact without fractures or deformities. Soft Tissues: Soft tissues overlying the chest wall are unremarkable. IMPRESSION: 1. Left lower lung zone consolidation with pleural effusion. 2. Atelectatic band at the right lung base. 3. Cardiomegaly. 4. Suggest MRI for further evaluation. Electronically signed by Samir Carlson 12-11-2024 7:[address] 03/06/24 22:21 Exam(s): CT RIGHT ELBOW With Contrast IV Amt: 93 ml optiray 320 EXAM: CT Right Upper Extremity With Intravenous Contrast, Elbow CLINICAL HISTORY: Reason for exam: enlarging mass. TECHNIQUE: Axial computed tomography images of the right elbow with intravenous contrast. CTDI is 24.91 mGy and DLP is 478.07 mGy-cm. Automated exposure control was utilized for the study. A dose lowering technique was utilized adhering to the principles of ALARA. CONTRAST: Patient received 93 ml optiray 320 of IV contrast COMPARISON: No relevant prior studies available. FINDINGS: Bones/joints: No fracture. No joint effusion. Soft tissues: Heterogeneously enhancing centrally necrotic appearing mass which appears to arise from the brachioradialis muscle measuring proximately 7 x 6.5 x 8 cm. Dilated right upper extremity veins. Nodular appearing liver. Ascites. Stones in the gallbladder. IMPRESSION: Heterogeneously enhancing centrally necrotic soft tissue mass measuring proximately 7 x 6.5 x 8 cm. 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 Electronically signed by: Maurice Chamberlain MD 03/06/24 23:52 PM
[2024-03-08 08:06] LABS: Basophils # (auto) 0.02 K/uL (0.00-0.20); Basophils % (auto) 0.2 %; Eosinophils % (auto) 0.8 %; Hemoglobin 8.2 g/dl (14.0-18.0); Immature Granulocytes % (auto) 0.8 %; Lymphocytes # (auto) 1.06 K/uL (1.20-3.40); Lymphocytes % (auto) 8.1 %; Mean Corpuscular Hemoglobin 24.3 pg (25.0-34.0); Mean Corpuscular Hgb Conc 31.5 g/dL (32.0-36.0); Mean Corpuscular Volume 76.9 fL (80.0-100.0); Mean Platelet Volume 9.8 fL (9.4-12.4); Monocytes # (auto) 1.01 K/uL (0.11-0.59); Monocytes % (auto) 7.8 %; Neutrophils # (auto) 10.73 K/uL (1.40-6.50); Neutrophils % (auto) 82.3 %; Platelet Count 382 K/uL (130-400); RDW Coefficient of Variation 19.8 % (11.5-14.5); RDW Standard Deviation 55.3 fL (36.4-46.3); Red Blood Count 3.38 M/uL (4.70-6.10); White Blood Count 13.02 K/ul (4.8-10.8)
[2024-03-08 08:29] LABS: BUN Creatinine Ratio 20.9 (10-20); Calcium 8.4 mg/dl (8.6-10.3); Creatinine Clr Calc Pharmacy 56.1 ml/min; Magnesium 1.7 mg/dl (1.7-2.4); Phosphorus 3.5 mg/dl (2.5-4.9); Potassium 3.2 mmol/L (3.5-5.1)
[2024-03-08 08:35] LABS: Prothrombin Time 29.7 Seconds (9.0-12.0)
--- OUTSIDE RECORDS SUMMARY | 2024-03-08 10:05 | External Medical Summary | Summary of Care ---
Author Name Unknown Organization [facility] Address [address] [place] [place] [address] Phone [phone] Care Team Providers Care B2B Sales Consultant Name Role Phone Heron Hutchinson MD Primary Care Provider [phone] Encounter Details Date Type Department Care Team (Late st Contact Info) Description 03/04/2024 Telephone [facility] [address] [place] [address] Heron Hutchinson MD [address] [place], [place] [phone] Allergies No known active allergiesdocumented as of this encounter (statuses as of 03/05/2024) Medications Cholecalciferol (VITAMIN D3) 1000 units CAPSIndications: 1 tablet monday, monday, monday and monday. monday, and monday 2 tablets Take 1 Capsule by mouth in the morning. Active Vitron-C 65-125 MG Oral Tablet (Iron-Vitamin C 65-125 mg per tab)Indications: Iron deficiency anemia, unspecified iron deficiency anemia type Take 1 Tablet by mouth in the morning. 30 Tablet 1 12/18/19 24 Active Omeprazole 20 MG Oral Capsule Delayed Release (PriLOSEC)Indica tions:Iron deficiency anemia due to chronic blood loss Take 1 Capsule by mouth in the morning. 1 hour before the first meal of the day. 90 Capsule 3 12/28/19 24 Active amLODIPine Besylate 2.5 MG Oral Tablet (Norvasc)Indicat ions:Hypertensiv e heart and kidney disease with chronic diastolic congestive heart failure and stage 3a chronic kidney disease (HCC) TAKE 1 TABLET BY MOUTH ONCE DAILY IN THE MORNING 90 Tablet 3 01/01/20 24 Active Atorvastatin Calcium 20 MG Oral Tablet (Lipitor)Indicat ions:Dyslipidemi a, goal LDL below 100 TAKE ONE TABLET BY MOUTH ONCE DAILY 90 Tablet 3 01/10/20 24 Active Ferrous Sulfate 325 (65 Fe) MG Oral Tablet Delayed Release Take 1 Tablet by mouth daily with breakfast. Active Furosemide 40 MG Oral Tablet (Lasix) Take 1 Tablet by mouth in the morning. Active Acetaminophen 325 MG Oral Tablet (Tylenol) Take 1 Tablet by mouth every 6 hours as needed. Active Isosorbide Dinitrate 20 MG Oral Tablet (Isordil)Indicat ions:Chronic diastolic congestive heart failure, NYHA class 3 (HCC) TAKE 1 TABLET BY MOUTH TWICE DAILY 180 Tablet 3 02/02/20 24 Active Metoprolol Succinate ER 25 MG Oral Tablet Extended Release 24 Hour (toPROL XL)Indications:C hronic atrial fibrillation (HCC) TAKE ONE TABLET BY MOUTH ONCE DAILY 90 Tablet 3 02/10/20 24 Active Warfarin Sodium 5 MG Oral Tablet (Coumadin)Indica tions:Atrial fibrillation (HCC) TAKE 1 OR 2 TABLETS BY MOUTH DIRECTED BY ANTICOAGULATION CLINIC 120 Tablet 3 02/12/20 24 Active Furosemide 40 MG Oral Tablet (Lasix) Take 1 Tablet by mouth in the morning. 90 Tablet 3 03/01/20 24 Active Potassium Chloride ER 20 MEQ Oral Tablet Extended Release Take 1 Tablet by mouth in the morning. 90 Tablet 5 03/01/20 24 Active documented as of this encounter (statuses as of 03/05/2024) Active Problems Problem Noted Date Diagnosed Date [...] and stage 3a chronic kidney disease 02/03/2020 Overview (01/16/2024): >>OVERVIEW FOR HYPERTENSIVE KIDNEY DISEASE WITH STAGE 3A CHRONIC KIDNEY DISEASE WRITTEN ON 01/16/2024 12:12 PM BY PROCESS, AUTOMATED EPIC Per CKD protocol Status post total left knee replacement 10/22/19 20 Chronic diastolic congestive heart failure, NYHA class 3 04/01/2019 Atherosclerotic heart diseas e of [place] coronary artery without angina pectoris 04/01/2019 Secondary [...] deficiency 09/20/2011 OBESITY, BMI= 33.09 06/08/10 06/08/2010 MALIGN NEOPL PROSTATE 05/02/2003 Moderate obstructive sleep apnea 07/02/2002 Overview (08/09/2013): BIPAP Plus set at 12 cwp [facility] residential current use of 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 Overview (12/26/2016): ICD-10 update of inactive term documented as of this encounter (statuses as of 03/05/2024) Resolved Problems Problem Noted Date Diagnosed Date [...] URI with cough 08/15/2014 018 [employer] Other*[id number] 07/12/2010 07/12/2013 Overview (07/12/2010): PROJECT: #[id number], SPONSOR: Owen, PI: Ezio Johnson MD SUMMARY: [...] encounter can be closed. CONTACT: Lu Neely, Rhinologist Chronic rhinitis 01/18/2010 08/15/2014 ADVANCE DIRECTIVE INFORMATION 12/27/2004 01/29/2024 Overview (12/27/2004): No, Advance Directive brochure given to patient at prior appointment. Elevated prostate specific antigen (PSA) 01/16/2002 03/26/2018 Benign prostatic hyperplasia 01/09/2002 03/26/2018 Overview (12/26/2016): ICD-10 update of inactive term ICD-10 update of inactive term Anticoagulation management encounter 10/12/2001 03/26/2018 Open wound of forearm 09/01/20002017 Atrial fibrillation 09/25/1995 03/26/20 18 Dyslipidemia, goal to be determined 03/01/2013 documented as of this encounter (statuses as of 03/05/2024) Immunizations Name Administration Dates Next Due COVID-19 [...] 12/28/2023 Hunger Vital Sign Answer Date Recorded Within the past 12 months, y ou worried that your food would run out before you got the money to buy more. Never true 02/20/20 24 Within the past 12 months, t he food you bought just didn't last and you didn't have money to get more. Never true 02/20/2024 Childcare Answer Date Recorded Do you feel overwhelmed with taking care of a child, family member or friend? No 02/20/2024 Does your family need help f inding childcare? (Household - for ages 0-17 years) Not on file 02/20/2024 Clothing Answer Date Recorded Have you been unable to get clothing when it was really needed? No 02/20/2024 Is your family able to get c lothes or diapers when needed? (Household - for ages 0-17 years) Not on file 02/20/2024 Personal Safety Answer Date Recorded Do you feel unsafe or have concerns for your saf ety? No 02/20/2024 Do you have concerns for you r family's safety? (Household - for ages 0-17 years) Not on file 02/20/2024 Utilities Answer Date Recorded Do you have trouble paying y our heating, water, or electric bill? No 02/20/2024 Is your family able to pay t he heat, water, or electric bill? (Household - for ages 0-17 years) Not on file 02/20/2024 Does your family have access to good internet? (Household - for ages 0-17 years) Not on file 02/20/2024 Employment Status Answer Date Recorded Are you unemployed or without regular income? No 02/20/2024 Does the household have a [facility] source of income? (Household - for ages 0-17 years) Not on file 02/20/2024 Social Connections Answer Date Recorded How often do you feel lonely or isolated from th ose around you? Never 02/20/2024 Financial Resource Strain Answer Date R ecorded Do you have any trouble payi ng for your medications, or do you think you might in the future? No 02/20/2024 Does your family have troubl e paying for medicine? (Household - for ages 0-17 years) Not on file 02/20/2024 Transportation Needs Answer Date Record ed Do you have trouble getting a ride to medical visits or work? (Adult - for ages 18 years and over) Not on file 02/20/2024 Does your family have a hard time getting a ride to doctors visits? (Household - for ages 0-17 years) Not on file 02/20/2024 Has lack of transportation k ept you from medical appointments, meetings, work, or from getting things needed for daily living? Check all that apply. No 02/20/2024 Do you (or your family) have trouble finding or paying for a ride (transportation)? (Household - for ages 0-17 years) Not on file 02/20/2024 Housing Stability Answer Date Recorded Do you currently live in a s helter or have no steady place to sleep at night? No 02/20/2024 Do you think you are at risk of becoming homeless? (Adult - for ages 18 years and over) Not on file 02/20/2024 Does your family worry about paying for your home or becoming homeless? (Household - for ages 0-17 years) Not on file 1 04/21/2023 Are you homeless or worried that you might be in the future? No 02/20/2024 Are you (or your family) paulo eless or worried that you might be in the future? (Household - for ages 0-17 years) Not on file Food Insecurity Answer Date Recorded Do you need food for this week? No 02/20/2024 Are you able to get enough f ood for your family? (Household - for ages 0-17 years) Not on file 02/20/2024 Does your family need food t his week? (Household - for ages 0-17 years) Not on file 02/20/2024 Do you always have enough fo od for your family? 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 Answer Date of Assessment Author No 10/22/2019 2:46 PM EDT Domonique Yarbrough, RN * Are you blind or do you have serious difficulty seeing, even when wearing glasses? Answer Date of Assessment Author No 10/22/2019 2:46 PM EDT Domonique Yarbrough RN * Do you have serious difficulty walking or climbing stairs? (5 years old or older) Answer Date of Assessment Author Yes 10/22/2019 2:46 PM EDT Domonique Yarbrough RN * Do you have difficulty dressing or bathing? (5 years old or older) Answer Date of Assessment Author No 10/22/2019 2:46 PM EDT Domonique Yarbrough RN * Because of a physical, mental, or emotional condition, do you have difficulty doing errands alone such as visiting a doctors office or shopping? (15 years old or older) Answer Date of Assessment Author No 10/22/2019 2:46 PM EDT Domonique Yarbrough RN documented as of this encounter Mental Status * Because of a physical, mental, or emotional condition, do you have serious difficulty concentrating, remembering, or making decisions? (5 years old or older) Answer Entry Date Author No 10/22/2019 2:46 PM EDT Domonique Yarbrough RN documented in this encounter Miscellaneous Notes * Telephone Encounter - Heron Hutchinson MD - 03/04/2024 9:36 AM EST I spoke with patients . He had unremarkable weekend. Pretty much just lying on couch. Pulse Ox this AM is in low 90's but many readings are below 90%. Need blood work. He is to see MTM tomorrow. Will get CBC, BNP. He likely will need pulmonary referral as he has a left pleural effusion. 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 documented in this encounter Plan of Treatment Upcoming Encounters Date Type Department Care Team (Late st Contact Info) Description 03/06/2024 4:20 PM EST [facility] [address] [address] Heron Hutchinson MD [address] [place] [address] 03/07/2024 9:00 AM EST [facility], [facility] [address] [place] [address] Cuong Ibrahim PA-C [address] [place] [address] 03/11/2024 11:00 AM EST [facility] [address] [facility] [phone] Heron Hutchinson MD [address] [facility] [address] 03/15/2024 5:10 PM EST [facility] [address] [facility] [address] [place] [phone] [address] [address] 03/18/2024 4:00 PM EST [facility] Visit [facility], [facility] [address] [place] [address] Augustina Orellana, RN [address] [place] [address] 04/24/2024 9:00 AM EST Appointment [facility], [place] [address] [place] [address] 09/17/2024 10:15 AM EDT Office Visit Urology, [facility] [address] [place] [address] Zeus Davidson MD [address] [address] Health Maintenance Due Date Last Done Comments Adult Wellness Visit 06/01/2003 Albumin/Creatinine Ratio 12/21/2022 022, 10/11/2019, 05/22/2018 COVID-19 Vaccine ( season) 2023 04/17/2022, 02/06/2021, 05/29/2020, Additional history exists CKD PHOS USE SMARTSET 07994 12/30/202307/2022, 12/21/2021, 09/12/2018, Additional history exists Depression Screening 12/27/2024 12/28/2023 Zoster Vaccines (2 of 2) 12/27/2024 10/17/2017, 09/26 Postponed from 12/12/2017 (Patient Declined After Education) CKD HGB USE SMARTSET 84592 03/05/202503/05, 02/05/2024, 01/23/2024, Additional history exists DTap/Tdap Vaccines (3 - [...] this encounter Medical Devices Implanted Type Area Cargo Supervisor Device Identifier Shelf Expiration Date Model / Serial / Lot Baseplate #6 Tritanium - [id number] Implanted:Qty: 1 on 10/22/2019 by Sammy Higgins, DO at OR [facility] Left: Knee LISSET : ORTHOPAEDICS 07/23/2024 5536-B-600 / / [id number] Knee Triathlon Bead No Cuong L 6 - [id number] Implanted:Qty: 1 on 10/22/2019 by Sammy Higgins, at OR [facility] Left: Knee LISSET : ORTHOPAEDICS 07/09/2024 5517-F-601 / / [id number] Patella Symmetric S33mm 9mm - [id number] Implanted:Qty: 1 on 10/22/2019 by Sammy Higgins, at OR [facility] Left: Knee LISSET : ORTHOPAEDICS 10/29/2023 5556-L-339 / / [id number] Triathlon X3 Tibial Bearing Insert Cs Ramirez 6 Typ Cs Thkns 10mm Implanted:Qty: 1 on 10/22/2019 by Sammy Higgins, at OR [facility] Left: Knee 01/07/2024 5531-G-610 -E / / [id number] documented as of this encounter Results * (ABNORMAL) BNP, NT-PRO (03/05/2024 9:41 AM EST) BNP, NT-Pro 3,623(H) <300 pg/mL 03/05/2024 2:59 PM EST [facility] Blood Venous blood specimen / Unknown Venipuncture / Unknown 03/05/2024 9:41 AM EST 03/05/2024 9:41 AM EST [facility] - 03/05/2024 2:59 PM EST Exclude Heart Failure: <300 pg/mL Diagnose Heart Failure: Age <50 yr: >450 pg/mL 50-75 yr: >900 pg/mL >75 yr: >1800 pg/mL GFR is 30-59 mL/min: >1200 pg/mL or Age-adjusted values GFR <30 mL/min: do not use, not reliable Prognostic threshold: 1000 pg/mL us Heron Hutchinson MD LAB BLOOD ORDERABLES Final Resu lt Performing Organization Address City/State/[facility] Co de Phone Number [facility] [address] [place] [address] * (ABNORMAL) CBC (03/05/2024 9:41 AM EST) WBC 13.76(H) 4.00 - 10.80 K/uL 03/05/2024 3:22 PM EST LABORATORY [facility] RBC 3.00 4.50 - 5.25 M/uL 03/05/2024 3:22 PM EST LABORATORY [facility] HGB 7.3(L) 14.0 - 16.8 g/dL 03/05/2024 3:22 PM EST LAB[facility]ATORY [facility] HCT 24.7(L) 40.0 - 48.4 % 03/05/2024 3:22 PM EST [facility] MCV 82.3 82.0 - 99.5 fL 03/05/2024 3:22 PM EST [facility] MCH 24.3 27.0 - 34.0 pg 03/05/2024 3:22 PM EST LAB[facility] MCHC 29.6 32.0 - 36.0 g/dL 03/05/2024 3:22 PM EST [facility] RDW 19.6 11.5 - 15.5 % 03/05/2024 3:22 PM EST [facility] PLT 398 140 - 400 K/uL 03/05/2024 3:22 PM EST [facility] MPV 9.4 6.6 - 11.1 fL 03/05/2024 3:22 PM EST LAB[facility] nRBCs 0 <=0 /100 WBCs 03/05/2024 3:22 PM EST [facility] Blood Venous blood specimen / Unknown Venipuncture / Unknown 03/05/2024 9:41 AM EST 03/05/2024 9:41 AM EST us Heron Hutchinson MD LAB BLOOD ORDERABLES Final Resu lt LAB[facility]ATORY [facility] [address] [place] [address] documented in this encounter Visit Diagnoses Diagnosis Chronic diastolic congestive heart failure, NYHA class 3 (HCC)- Primary Chronic diastolic heart failure Other iron deficiency anemia documented in this encounter Advance Directives Documents on File Type Date Recorded 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 Care Teams B2B Sales Consultant Relationship Specialty Start Date End Date Heron Hutchinson MD [address] [place] [address] PCP - General 03/28/1997 documented as of this encounter
--- OUTSIDE RECORDS SUMMARY | 2024-03-08 10:06 | External Medical Summary | Summary of Care ---
Author Name Unknown Organization [facility] Address [address] [facility] [address] Phone [phone] Care Team Providers Care Nightman Name Role Phone Heron Hutchinson MD Primary Care Provider [phone] Encounter Details Date Type Department Care Team (Late st Contact Info) Description 02/27/2024 Telephone Orthopaedics [facility] [address] [place] [address] Irineo Richards, [address] [place] [address] Allergies No known active allergiesdocumented as of this encounter (statuses as of 03/04/2024) Medications Cholecalciferol (VITAMIN D3) 1000 units CAPSIndications: [...] CLINIC 120 Tablet 3 02/12/20 24 Active documented as of this encounter (statuses as of 03/04/2024) Active Problems Problem Noted Date Diagnosed Date [...] 3 04/01/2019 Atherosclerotic heart diseas e of [place] coronary artery without angina pectoris 04/01/2019 Secondary [...] 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 CONTACT: Lu Neely, Special Events Driver Chronic rhinitis 01/18/2010 08/15/2014 ADVANCE DIRECTIVE INFORMATION [...] as of this encounter (statuses as of 03/04/2024) Immunizations Name Administration Dates Next Due COVID-19 [...] No 02/20/2024 Does the household have a [facility] source of income? (Household - for ages [...] 2:46 PM EDT Domonique Yarbrough RN * Are you blind or do you have serious difficulty seeing, even when wearing glasses? Answer Date of Assessment Author No 10/22/2019 2:46 PM KET Domonique Yarbrough RN * Do you have serious difficulty walking or climbing stairs? (5 years old or older) Answer Date of Assessment Author Yes 10/22/2019 2:46 PM KET Domonique Yarbrough RN * Do you have difficulty dressing or bathing? (5 years old or older) Answer Date of Assessment Author No 10/22/2019 2:46 PM EDT Domonique Yarbrough, MART * Because of a physical, mental, or emotional condition, do you have difficulty doing errands alone such as visiting a doctors office or shopping? (15 years old or older) Answer Date of Assessment Author No 10/22/2019 2:46 PM EDT Domonique Yarbrough, RN documented as of this encounter Mental Status * Because of a physical, mental, or emotional condition, do you have serious difficulty concentrating, remembering, or making decisions? (5 years old or older) Answer Entry Date Author No 10/22/2019 2:46 PM EDT Domonique Yarbrough RN documented in this encounter Miscellaneous Notes * Telephone Encounter - Sujey Collins LPN - 03/01/2024 3:10 PM EST Spoke to pt and pt will call PCP to discuss Chest xray results. * Telephone Encounter - Irineo Richards DO - 02/27/2024 7:38 AM EST Please call patient with x-ray results. He needs to be seen by his primary care physician to reviewthe pleural effusion. This was only ordered for advanced imaging IMPRESSION Left pleural effusion some elevation left hemidiaphragm. Suspected atelectatic change left lower lung field. Cardiomegaly. documented in this encounter Plan of Treatment Upcoming Encounters Date Type Department Care Team (Late st Contact Info) Description 03/05/2024 9:20 AM EST Anticoagulation Pharmacy, [facility]erto Durb[facility] [address] [phone] [facility] [address] [facility] [place] [address] 03/07/2024 9:00 AM EST [facility] [place], [facility] [address] [place] [address] Cuong Ibrahim PA-C [address] [place] [address] 03/11/2024 11:00 AM EST [facility] [address] [facility] [phone] Heron [facility]inson [facility] [address] [facility] [address] 03/18/2024 4:00 PM EST [facility] Visit [facility], [facility] [address] [place] [address] Augustina Orellana RN [address] [place] [address] 04/24/2024 9:00 AM EST Appointment [facility], [place] [address] [place] [address] 09/17/2024 10:15 AM EDT Office Visit Urology, [facility] [address] [place] [address] Zeus Davidson MD [address] [place] [address] Health Maintenance Due Date Last Done Comments Adult Wellness Visit 06/01/2003 Albumin/Creatinine Ratio 12/21/20222 022, 10/11/2019, 05/22/2018 COVID-19 Vaccine ( season) 2023 04/17/2022, 02/06/2021, 05/29/2020, Additional history exists CKD PHOS USE SMARTSET 74095 12/30/2023 10/0 07/2022, 12/21/2021, 09/12/2018, Additional history exists Depression Screening 12/27/2024 12/28/2023 Zoster Vaccines (2 of 2) 12/27/2024 10/17/2017, 09/26 Postponed from 12/12/2017 (Patient Declined After Education) CKD HGB USE SMARTSET 25951 02/04/202502/04, 01/23/2024, 12/28/2023, Additional history exists DTap/Tdap Vaccines (3 [...] this encounter Medical Devices Implanted Type Area Alteration Workroom Supervisor Device Identifier Shelf Expiration Date Model / Serial / Lot Baseplate #6 Tritanium - [id number] Implanted:Qty: 1 on 10/22/2019 by Sammy Higgins DO at OR [facility] Left: Knee LISSET : ORTHOPAEDICS 07/23/2024 5536-B-600 / / [id number] Knee Triathlon Bead No Cuong L 6 - [id number] Implanted:Qty: 1 on 10/22/2019 by Sammy Higgins DO at OR [facility] Left: Knee LISSET : ORTHOPAEDICS 07/09/2024 5517-F-601 / / [id number] Patella Symmetric S33mm 9mm - [id number] Implanted:Qty: 1 on 10/22/2019 by Sammy Higgins DO at OR [facility] Left: Knee LISSET : ORTHOPAEDICS 10/29/2023 5556-L-339 / / [id number] Triathlon X3 Tibial Bearing Insert Cs Ramirez 6 Typ Cs Thkns 10mm Implanted:Qty: 1 on 10/22/2019 by Sammy Higgins DO at OR [facility] Left: Knee 01/07/2024 5531-G-610 -E / / [id number] documented as of this encounter Advance Directives Documents on File Type Date Recorded Patient Chaser Helper Expl anation Advance Directives and Zac lora Will 05/25/2017 LIVING WILL Power of Tree Wrapper 05/25/2017 POWER OF A TTORNEY * [...] and were consensually agreed upon. Care Teams Nightman Relationship Specialty Start Date End Date Heron Hutchinson MD [address] [place] [address] PCP - General 03/28/1997 documented as of this encounter
--- OUTSIDE RECORDS SUMMARY | 2024-03-08 10:06 | External Medical Summary ---
Author Name Unknown Address Unknown Organization : Laboratory Report Ordering Provider Test Date Status [facility]A [facility]Y 03/05/2024 09:33:26 Final Therapeutic ranges for non-o perative patients:
Prophylaxsis/treatment of DVT: (Range:2.0-3.0)
Treatment of pulmonary embolism:(Range:2.0-3.0)
Prevention of systemic embolism from:
-tissue heart valves
-acute myocardial infarction
-valvular heart disease
-atrial fibrillation
(Range: 2.0-3.0)
Mechanical prosthetic valves: (Range: 2.5-3.5) Observation Date Value Abnormality Reference (Units ) Status INR in Capillary blood by Coagulation assay 03/05/2024 09:33:26 4.9 (INR) Final Performing Location
--- OUTSIDE RECORDS SUMMARY | 2024-03-08 10:06 | External Medical Summary | Summary of Care ---
Author Name Unknown Organization [facility] Address [address] [place] [place] [address] Phone [phone] Care Team Providers Care Retail Equipment Associate Name Role Phone Heron Hutchinson MD Primary Care Provider Reason for Visit * Reason Onset Date Comments [facility]: Maintenance 03/01/2024 Encounter Details Date Type Department Care Team (Late st Contact Info) Description 03/01/2024 Telephone [facility], [facility] [address] [facility] [place] [address] Elizabeth Funes LPN [address] [place] [address] [facility]: Maintenance Allergies No known active allergiesdocumented as of this encounter (statuses as of 03/01/2024) Medications Cholecalciferol (VITAMIN D3) 1000 units CAPSIndications: [...] DAILY 90 Tablet 3 01/10/20 24 Active Potassium Chloride ER 20 MEQ Oral Tablet Extended Release Take 1 Tablet by mouth in the morning. 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 CONTACT: Lu Neely, Salvationist Chronic rhinitis 01/18/2010 08/15/2014 ADVANCE DIRECTIVE INFORMATION [...] as of this encounter (statuses as of 03/01/2024) Immunizations Name Administration Dates Next Due COVID-19 [...] No 02/20/2024 Does the household have a re lar source of income? (Household - for ages [...] of Assessment Author No 10/22/2019 2:46 PM Domonique Casillas RN * Are you blind or do [...] encounter Miscellaneous Notes * Telephone Encounter - Elizabeth Funes LPN - 03/01/2024 9:48 AM EST Images from the original note were not included. [facility] Remote Patient Monitoring Able to contact patient: Trigger type: Abnormal reading(s): AMC (Advanced Monitored Caregiving): Pulse Oximeter: Oxygen saturation per oximeter: 76 measured while on room air Trigger priority per AMC: high Baseline oxygen requirements: Room air Symptom review: SOB: baseline Diet Reviewed: N/A Fluid Intake Reviewed: N/A Self-Management Plan Reviewed: Red Flags: none listed Risk assignment recommendation: Moderate risk findings (check as applicable): [] Moderate trigger priority on AMC [] Confirmed tympanic equivalent temperature 100.4-101.9 F one hour post administration of antipyretic [] Weight gain of 2.1-4.9 lbs over 1-2 days [] Confirmed new sustained resting HR greater than 105 WITHOUT symptoms [] Weight gain of greater than or equal to 5 lbs in 5 days WITHOUT heart failure symptoms [] Confirmed new sustained resting HRT less than 60 WITHOUT symptoms [] Moderate heart failure symptoms [] Confirmed SBP less than 90 WITHOUT symptoms [] Moderate COPD symptoms [] Confirmed SBP greater than 170 WITHOUT symptoms [] Confirmed new SpO2 90-93% [] Confirmed DBP greater than 90 WITHOUT symptoms High risk findings (check as applicable): [x] High trigger priority on AMC [] Confirmed tympanic equivalent temperature greater than or equalto 102 F on hour post administration of antipyretic [] Weight gain of greater than or equal to 5 lbs over 1-2 days [] Confirmed tympanic equivalent temperature less than 96 F [] Weight gain of greater than or equal to 5 lbs in 5 days WITH heart failure symptoms [] Confirmednew sustained resting HR greater than 105 WITH symptoms [] Severe heart failure symptoms [] Confirmed new sustained resting HR less than 60 WITH symptoms [] Severe COPD symptoms [] Confirmed SBP less than 90 WITH symptoms [] Confirmed new SpO2 less than 90% [] Confirmed SBP greater than 170 WITH symptoms [] Confirmed DBP greater than 90 WITH symptoms Additional risk selection justification: Spoke with pt's spouse pt can be heard in background denies increased SOB, - cough/congestion, - abdominal fullness, - edema. SOB is at baseline. Denies any new/worsening symptoms. Per spouse pt's fingers always feel cold. Readings from pulse ox are always low. She does try different fingers for readings. Pt does not wear oxygen. On recheck Sp02 89%. Encouraged to call [facility] with any concerns. Overall risk and identified plan: High risk: Route to RNCM (Registered Nurse Lump Inspector) and Advance Practitioner documented in this encounter Plan of Treatment Upcoming Encounters Date Type Department Care Team (Late st Contact Info) Description 03/05/2024 9:20 AM EST Anticoagulation Pharm[facility], [facility] [address] [facility] [phone] [facility] [address] [facility] [address] 03/07/2024 9:00 AM EST [facility] [address] [place] [address] Cuong Ibrahim PA-C [address] [facility] [place] [address] 03/18/2024 4:00 PM EST Home Visit [facility], [facility] [address] [place] [address] Augustina Orellana, RN [address] [place] [address] 04/24/2024 9:00 AM EST Appointment [facility], [address] [place] [address] 09/17/2024 10:15 AM EDT Office Visit Urology, [facility] [address] [place] [address] Zeus Davidson MD [address] [place] [address] Health Maintenance Due Date Last Done Comments Adult Wellness Visit 06/01/2003 Albumin/Creatinine Ratio 12/21/2022 022, 10/11/2019, 05/22/2018 COVID-19 Vaccine ( season) 2023 04/17/2022, 02/06/2021, 05/29/2020, Additional history exists CKD PHOS USE SMARTSET 75849 12/30/202307/2022, 12/21/2021, 09/12/2018, Additional history exists Depression Screening 12/27/2024 12/28/2023 Zoster Vaccines (2 of 2) 12/27/2024 10/17/2017, 09/26 Postponed from 12/12/2017 (Patient Declined After Education) CKD HGB USE SMARTSET 01414 02/04/202502/04, 01/23/2024, 12/28/2023, Additional history exists DTap/Tdap [...] this encounter Medical Devices Implanted Type Area Forensic Investigator Device Identifier Shelf Expiration Date Model / Serial / Lot Baseplate #6 Tritanium - [id number] Implanted:Qty: 1 on 10/22/2019 by Sammy Higgins, DO at OR [facility] Left: Knee LISSET : ORTHOPAEDICS 07/23/2024 5536-B-600 / / [id number] Knee Triathlon Bead No Cuong L 6 - [id number] Implanted:Qty: 1 on 10/22/2019 by Sammy Higgins, DO at OR [facility] Left: Knee LISSET : ORTHOPAEDICS 07/09/2024 5517-F-601 / / [id number] Patella Symmetric S33mm 9mm - [id number] Implanted:Qty: 1 on 10/22/2019 by Sammy Higgins, DO at OR [facility] Left: Knee LISSET : ORTHOPAEDICS 10/29/2023 5556-L-339 / / [id number] Triathlon X3 Tibial Bearing Insert Cs Ramirez 6 Typ Cs Thkns 10mm Implanted:Qty: 1 on 10/22/2019 by Sammy Higgins, DO at OR [facility] Left: Knee 01/07/2024 5531-G-610 -E / / [id number] documented as of this encounter Advance Directives Documents on File Type Date Recorded Patient Manager Stone Expl anation Advance Directives and Livin g Will 05/25/2017 LIVING WILL Power of Joint Filler 05/25/2017 POWER OF A TTORNEY * Full [...] and were consensually agreed upon. Care Teams Retail Equipment Associate Relationship Specialty Start Date End Date Heron Hutchinson MD [address] [place] [address] PCP - General 03/28/1997 documented as of this encounter
--- OUTSIDE RECORDS SUMMARY | 2024-03-08 10:06 | External Medical Summary | Summary of Care ---
Author Name Unknown Organization [facility] Address [address] [place] [address] Phone [phone] Care Team Providers Care Rn Transitional Care Name Role Phone Heron Hutchinson MD Primary Care Provider [phone] Reason for Visit * Reason Comments Dosage Adjustment In Person (Anticoag Cl inic) Encounter Details Date Type Department Care Team (Latest Contact Info) Description 03/05/2024 9:20 AM EST Anticoagulation Pharmacy, [facility] [address] [place] [phone] [place], [facility] [address] [place] [address] Anticoagulation management encounter*; Chronic atrial fibrillation (HCC); [...] 3 04/01/2019 Atherosclerotic heart diseas e of [place] coronary artery without angina pectoris 04/01/2019 Secondary [...] 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 CONTACT: Lu Neely, Clinical Quality Manager Chronic rhinitis 01/18/2010 08/15/2014 ADVANCE DIRECTIVE INFORMATION [...] 02/20/2024 Does the household have a re gular source of income? (Household - for ages [...] Domonique Yarbrough RN documented in this encounter Progress Notes * Taty Marte, [facility] - 03/05/2024 9:27 AM EST Images from the original note were not included. Medication Therapy Disease Management - Anticoagulation Patient: Macario Oliver | : 1935 Subjective Patient-Reported Symptoms: Patient Findings Positives: Change in health (leg swelling; pt has been on the couch most of the weekend; low energy) Negatives: Signs/symptoms of thrombosis, Signs/symptoms of bleeding, Change in alcohol use, Change in activity, Upcoming invasive procedure, Missed doses, Extra doses, Change in medications, Change in diet/appetite, Bruising Objective Current Warfarin Dose As of 03/05/2024 Warfarin maintenance plan: 2.5 mg (5 mg x 0.5) every day INR Result As of 03/05/2024 INR goal: 1.5-2.0 INR used for dosin.9 (03/05/2024) Assessment & Plan Warfarin Plan As of 03/05/2024 Full warfarin instructions: Hold doses until further notice Next INR check: TBD Repeat PT/INR in TBD; follow up check in scheduled for 03/15/2024 to see if coumadin is to be resumed at all. Case discussed with PCP. Additional Dosing Information: I spent a total of 10-19 minutes (exact time 12 mins) on the date of service in preparation, delivery, and documentation of the care provided to Macario Oliver excluding any time spent in the performance of separately billed services or time spent by another provider/QHP. Taty Marte [facility] Clinical Pharmacist 03/05/2024, 9:27 AM documented in this encounter Plan of Treatment Upcoming Encounters Date Type Department Care Team (Late st Contact Info) Description 03/06/2024 4:20 PM EST [facility] [place] [phone] Heron Hutchinson MD [address] [place] [address] 03/07/2024 9:00 AM EST Home Visit [facility] [address] [facility] [place] [address] Cuong Ibrahim PA-C [facility] [place] [address] 03/11/2024 11:00 AM EST Office Visit [facility], [place] [address] [place] [phone] Heron Hutchinson MD [address] [place] [address] 03/15/2024 5:10 PM EST Anticoagulation Pharmacy, [place] [address] [place] [phone] [place] [facility] [address] [address] 03/18/2024 4:00 PM EST [facility], [facility] [address] [place] [address] Augustina Orellana, RN [address] [place] [address] 04/24/2024 9:00 AM EST Appointment MRI, [place] [address] [place] [facility] [place] [address] 09/17/2024 10:15 AM EDT Office Visit Urology, [facility] [address] [place] [address] Zeus Davidson MD [address] [facility] [place] [address] Health Maintenance Due Date Last Done Comments Adult Wellness Visit 06/01/2003 Albumin/Creatinine Ratio 12/21/2022 022, 10/11/2019, 05/22/2018 COVID-19 Vaccine ( season) 2023 04/17/2022, 02/06/2021, 05/29/2020, Additional history exists CKD PHOS USE SMARTSET 98106 12/30/202307/2022, 12/21/2021, 09/12/2018, Additional history exists Depression Screening 12/27/2024 12/28/2023 Zoster Vaccines (2 of 2) 12/27/2024 10/17/2017, 09/26 Postponed from 12/12/2017 (Patient Declined After Education) CKD HGB USE SMARTSET 99704 02/04/202502/04, 01/23/2024, 12/28/2023, Additional history exists DTap/Tdap [...] this encounter Medical Devices Implanted Type Area Scrap Metal Burner Device Identifier Shelf Expiration Date Model / Serial / Lot Baseplate #6 Tritanium - [id number] Implanted:Qty: 1 on 10/22/2019 by Sammy Higgins DO at OR [facility] Left: Knee LISSET : ORTHOPAEDICS 07/23/2024 5536-B-600 / / [id number] Knee Triathlon Bead No Cuong L 6 - [id number] Implanted:Qty: 1 on 10/22/2019 by Sammy Higgins DO at OR [facility] Left: Knee LISSET : ORTHOPAEDICS 07/09/2024 5517-F-601 / / [id number] Patella Symmetric S33mm 9mm - [id number] Implanted:Qty: 1 on 10/22/2019 by Sammy Higgins DO at OR [facility] Left: Knee LISSET : ORTHOPAEDICS 10/29/2023 5556-L-339 / / [id number] Triathlon X3 Tibial Bearing Insert Cs Ramirez 6 Typ Cs Thkns 10mm Implanted:Qty: 1 on 10/22/2019 by Sammy Higgins DO at OR [facility] Left: Knee 01/07/2024 5531-G-610 -E / / [id number] documented as of this encounter Procedures Procedure Name Priority Date/Time Associated Diagnosis Comments INR FINGERSTICK, POINT OF CARE STAT 03/05/2024 9:33 AM EST Chronic atrial fibrillation (HCC) S/P TAVR (transcatheter aortic valve replacement) Anticoagulation management encounter documented in this encounter Results * INR FINGERSTICK, POINT OF CARE (03/05/2024 9:33 AM EST) Fingerstick INR 4.9 INR 10:07 AM EST [facility] Blood 03/05/2024 9:33 AM EST 03/05/2024 10:07 AM EST Narrative LAB[facility]ORY [place] 56-01 - 03/05/2024 10:07 AM EST Therapeutic ranges for non-operative patients: Prophylaxsis/treatment of DVT: (Range:2.0-3.0) Treatment of pulmonary embolism:(Range:2.0-3.0) Prevention of systemic embolism from: -tissue heart valves -acute myocardial infarction -valvular heart disease -atrial fibrillation (Range: 2.0-3.0) Mechanical prosthetic valves: (Range: 2.5-3.5) us Taty Marte [facility] LAB POINT OF CARE TEST DOCKED DEVICE UNSOLICITED RESULTS Final Result [facility] [place] [address] documented in this encounter Visit Diagnoses Diagnosis Anticoagulation management encounter- Primary Encounter for therapeutic drug monitoring Chronic atrial fibrillation (HCC) Atrial fibrillation S/P TAVR (transcatheter aortic valve replacement) Heart valve replaced by other means documented in this encounter Advance Directives Documents on File Type Date Recorded Patient Chief Unit Forester Expl anation Advance Directives and Livin g Will 05/25/2017 LIVING WILL Power of Warehouse Receiving Clerk 05/25/2017 POWER OF A TTORNEY * Full [...] and were consensually agreed upon. Care Teams Rn Transitional Care Relationship Specialty Start Date End Date Heron Hutchinson MD [address] [facility] [place] [place] [address] PCP - General 03/28/1997 documented as of this encounter"
--- OUTSIDE RECORDS SUMMARY | 2024-03-08 10:06 | External Medical Summary | Summary of Care ---
Author Name Unknown Organization [facility] Address [address] [place] [address] Phone [phone] Care Team Providers Care Vacuum Metalizer Operator Name Role Phone Heron Hutchinson MD Primary Care Provider [phone] Reason for Visit * Reason Comments Outpatient Testing Encounter Details Date Type Department Care Team (Late st Contact Info) Description 03/05/2024 9:40 AM EST Laboratory Laboratory, [facility] [address] [place] [phone] [facility] [address] [place] [address] Other iron deficiency anemia; Chronic diastolic congestive heart failure, NYHA class 3 (HCC) Allergies No known active allergiesdocumented as [...] 3 04/01/2019 Atherosclerotic heart diseas e of [place] coronary artery without angina pectoris 04/01/2019 Secondary [...] 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 CONTACT: Lu Neely, Unit Secretary Chronic rhinitis 01/18/2010 08/15/2014 ADVANCE DIRECTIVE INFORMATION [...] Entry Date Author No 10/22/2019 2:46 PM Domonique Casillas RN documented in this encounter Plan of Treatment Upcoming Encounters Date Type Department Care Team (Late st Contact Info) Description 03/06/2024 4:20 PM EST [facility] [address] [place] [phone] Heron Hutchinson MD [address] [place] [address] 03/07/2024 9:00 AM EST Home Visit [facility] [address] [place] [address] Cuong Ibrahim PA-C [address] [place] [address] 03/11/2024 11:00 AM EST [facility] [address] [place] [phone] Heron Hutchinson MD [address] [place] [address] 03/15/2024 5:10 PM EST Anticoagulation Pharmacy, [place] [address] [place] [phone] [facility] [address] [place] [address] [place] [address] 03/18/2024 4:00 PM EST [facility] [address] [facility] [place] [address] Augustina Orellana, RN [address] [place] [address] 04/24/2024 9:00 AM EST Appointment [facility], [address] [address] 09/17/2024 10:15 AM EDT Office Visit U[facility], [facility] [address] [facility] [place] [address] Zeus Davidson MD [address] [place] [address] Pending Results Name Type Priority Associated Diagnoses Date /Time CBC Lab Routine Other iron deficiency anemia 03/05/2024 9:41 AM EST BNP, NT-PRO Lab Routine Chronic diastolic congestive heart failure, NYHA class 3 (HCC) 03/05/2024 9:41 AM EST Health Maintenance Due Date Last Done Comments Adult Wellness Visit 06/01/2003 Albumin/Creatinine Ratio 12/21/2022 022, 10/11/2019, 05/22/2018 COVID-19 Vaccine ( season) 2023 04/17/2022, 02/06/2021, 05/29/2020, Additional history exists CKD PHOS USE SMARTSET 34925 12/30/2023 10/0 07/2022, 12/21/2021, 09/12/2018, Additional history exists Depression Screening 12/27/2024 12/28/2023 Zoster Vaccines (2 of 2) 12/27/2024 10/17/2017, 09/26 Postponed from 12/12/2017 (Patient Declined After Education) CKD HGB USE SMARTSET 22772 02/04/202502/04, 01/23/2024, 12/28/2023, Additional history exists DTap/Tdap [...] this encounter Medical Devices Implanted Type Area Commodity Supervisor Device Identifier Shelf Expiration Date Model / Serial / Lot Baseplate #6 Tritanium - [id number] Implanted:Qty: 1 on 10/22/2019 by Sammy Higgins DO at OR [facility] Left: Knee LISSET : ORTHOPAEDICS 07/23/2024 5536-B-600 / / [id number] Knee Triathlon Bead No Cuong L 6 - [id number] Implanted:Qty: 1 on 10/22/2019 by Sammy Higgins DO at OR [facility] Left: Knee LISSET : ORTHOPAEDICS 07/09/2024 5517-F-601 / / [id number] Patella Symmetric S33mm 9mm - [id number] Implanted:Qty: 1 on 10/22/2019 by Sammy Higgins DO at OR [facility] Left: Knee LISSET : ORTHOPAEDICS 10/29/2023 5556-L-339 / / [id number] Triathlon X3 Tibial Bearing Insert Cs Ramirze 6 Typ Cs Thkns 10mm Implanted:Qty: 1 on 10/22/2019 by Sammy Higgins, at OR [facility] Left: Knee 01/07/2024 5531-G-610 -E / / [id number] documented as of this encounter Visit Diagnoses Diagnosis Other iron deficiency anemia Chronic diastolic congestive heart failure, NYHA class 3 (HCC) Chronic diastolic heart failure documented in this encounter Advance Directives Documents on File Type Date Recorded Patient Enterprise Sales Person Expl anation Advance Directives and Livin g Will 05/25/2017 LIVING WILL Power of City Constable 05/25/2017 POWER OF A TTORNEY * Full [...] and were consensually agreed upon. Care Teams Vacuum Metalizer Operator Relationship Specialty Start Date End Date Heron Hutchinson MD [address] [place] [address] PCP - General 03/28/1997 documented as of this encounter
--- OUTSIDE RECORDS SUMMARY | 2024-03-08 10:06 | External Medical Summary ---
Author Name Unknown Address Unknown Organization K01:[facility] [place] [address] [facility] [address] Laboratory Report Ordering Provider Test Date Status KRYS CHRIS 03/05/2024 09:41:40 Final Observation Date Value Abnormality Reference (Units ) Status WBC, Total 03/05/2024 09:41:40 13.76 Above high normal 4.00-10.80 (K/uL) Final RBC 03/05/2024 09:41:40 3.00 4.50-5.25 (M/uL) Final Hemoglobin 03/05/2024 09:41:40 7.3 Below low normal 14.0-16.8 (g/dL) Final HCT 03/05/2024 09:41:40 24.7 Below low normal 40.0-48.4 (%) Final MCV 03/05/2024 09:41:40 82.3 82.0-99.5 (fL) Final MCH 03/05/2024 09:41:40 24.3 27.0-34.0 (pg) Final MCHC 03/05/2024 09:41:40 29.6 32.0-36.0 (g/dL) Final RDW 03/05/2024 09:41:40 19.6 11.5-15.5 (%) Final Platelets 03/05/2024 09:41:40 398 140-400 (K/uL) Final MPV 03/05/2024 09:41:40 9.4 6.6-11.1 (fL) Final Nucleated erythrocytes/100 leukocytes [Ratio] in Blood by Automated count 03/05/2024 09:41:40 0 <=0 (/100 WBCs) Final Performing Location LABORATORY C - [address] [place] [address]
--- OUTSIDE RECORDS SUMMARY | 2024-03-08 10:06 | External Medical Summary | Summary of Care ---
Author Name Unknown Organization [facility] Address [address] [place] [facility] [place] [address] Phone [phone] Care Team Providers Care Family Service Center Director Name Role Phone Heron Hutchinson MD Primary Care Provider [phone] Encounter Details Date Type Department Care Team (Late st Contact Info) Description 03/01/2024 Telephone [facility] [address] [place] [address] Heron Hutchinson MD [address], [place] [phone] Allergies No known active allergiesdocumented as of this encounter (statuses as of 03/01/2024) Medications Cholecalciferol (VITAMIN D3) 1000 units CAPSIndications :1 tablet monday, monday, monday and monday. monday, and monday 2 tablets Take 1 Capsule by mouth in the morning. Active Vitron-C 65-125 MG Oral Tablet (Iron-Vitamin C 65-125 mg per tab)Indications :Iron deficiency anemia, unspecified iron deficiency anemia type Take 1 Tablet by mouth in the morning. 30 Tablet 1 12/18/19 24 Active Omeprazole 20 MG Oral Capsule Delayed Release (PriLOSEC)Indic ations:Iron deficiency anemia due to chronic blood loss Take 1 Capsule by mouth in the morning. 1 hour before the first meal of the day. 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 stage 3a chronic kidney disease (HCC) TAKE 1 TABLET BY MOUTH ONCE DAILY IN THE MORNING 90 Tablet 3 01/01/20 24 Active Atorvastatin Calcium 20 MG Oral Tablet (Lipitor)Indica tions:Dyslipide carolyn, goal LDL below 100 TAKE ONE TABLET [...] Active Isosorbide Dinitrate 20 MG Oral Tablet (Isordil)Indica tions:Chronic diastolic congestive heart failure, NYHA class 3 (HCC) TAKE 1 TABLET BY MOUTH TWICE DAILY 180 Tablet 3 02/02/20 24 Active Metoprolol Succinate ER 25 MG Oral Tablet Extended Release 24 Hour (toPROL XL)Indications: Chronic atrial fibrillation (HCC) TAKE ONE TABLET BY MOUTH ONCE DAILY 90 Tablet 3 02/10/20 24 Active Warfarin Sodium 5 MG Oral Tablet (Coumadin)Indic ations:Atrial fibrillation (HCC) TAKE 1 OR 2 TABLETS BY MOUTH DIRECTED BY ANTICOAGULATION CLINIC 120 Tablet 3 02/12/20 24 Active Furosemide 40 MG Oral Tablet (Lasix) Take 1 Tablet by mouth in the morning. 90 Tablet 3 03/01/20 24 Active Potassium Chloride ER 20 MEQ Oral Tablet Extended Release Take 1 Tablet by mouth in the morning. 90 Tablet 5 03/01/20 24 Active Potassium Chloride ER 20 MEQ Oral Tablet Extended Release Take 1 Tablet by mouth in the morning. 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 CONTACT: Lu Neely, Biostatistician Chronic rhinitis 01/18/2010 08/15/2014 ADVANCE DIRECTIVE INFORMATION [...] Entry Date Author No 10/22/2019 2:46 PM KET Domonique Yarbrough RN documented in this encounter Miscellaneous Notes * Telephone Encounter - Heron Hutchinson MD - 03/01/2024 5:25 PM EST I spoke with the patient's son Lu. He had been contacted through Dr. Sprague's office about an abnormality on chest x-ray i.e. left-sided pleural effusion. Macario has previously been noted to have a pleural effusion but Um this most recent chest x-ray shows the effusion to be larger compared to chest x-ray 1 month ago. When he was discharged from [facility] 3 -4 4 weeks ago he had been change from hydrochlorothiazide to Lasix 40 mg daily but he has run out of that in he did not know whether he was Um to remain on that medicine. It is not clear how long he has not taken it but no more than a coupledays. He does use a pulse ox and this is consistently reading in the very low 90s in dropping less than 90 as low as into the 70s. [facility] is to see the patient at home in 6 days' time. He had an appointment to see Cardiology in the month of February but that appointment was canceled Nothing has been done as far as treatment regarding the large localize swelling elbow. There was some concerns that there is an underlying mass. Radiology recommended MRI but this was delayed becausehe has a pacemaker. He is tentatively scheduled for MRI at [place] because of the pacemaker but not until March. He does remain on Coumadin with goals being set lower i.e. goal INR of approximately 2. He does have an INR to be done in a couple days time. I recommended if his pulse ox drops down less than 90 in remains down should be taken to the Emergency Room. I thought he may do better [facility] because neither the patient nor his drive. I e-mail in new prescriptions for Lasix 40 mg to use 1 daily and potassium 20 mEq 1 daily to [facility]. With the progression of the left-sided pleural effusion, worried that this may be related to underlying malignancy. 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 * Telephone Encounter - Raulito Arechiga OSA - 03/01/2024 4:38 PM EST Patients son called in requesting Dr. Hutchinson to call patient to go over CT results. Preferred phonenumber [phone] documented in this encounter Plan of Treatment Upcoming Encounters Date Type Department Care Team (Late st Contact Info) Description 03/05/2024 9:20 AM EST Anticoagulation Pharmacy, [address] [place] [phone] [facility] [address] [facility] [place] [address] 03/07/2024 9:00 AM EST Home Visit [facility] [address] [place] [address] Cuong Ibrahim PA-C [address] [place] [address] 03/18/2024 4:00 PM EST [facility] Visit [facility] [address] [place] [address] Augustina Orellana, RN [address] [place] [address] 04/24/2024 9:00 AM EST Appointment MRI, [place] [address] [place] [place] [address] 09/17/2024 10:15 AM EDT Office Visit Urology, [facility] [address] [place] [address] Zeus Davidson MD [address] [facility] [place] [address] Health Maintenance Due Date Last Done Comments Adult Wellness Visit 06/01/2003 Albumin/Creatinine Ratio 12/21/2022 022, 10/11/2019, 05/22/2018 COVID-19 Vaccine ( season) 2023 04/17/2022, 02/06/2021, 05/29/2020, Additional history exists CKD PHOS USE SMARTSET 22266 12/30/202307/2022, 12/21/2021, 09/12/2018, Additional history exists Depression Screening 12/27/2024 12/28/2023 Zoster Vaccines (2 of 2) 12/27/2024 10/17/2017, 09/26 Postponed from 12/12/2017 (Patient Declined After Education) CKD HGB USE SMARTSET 64187 02/04/202502/04, 01/23/2024, 12/28/2023, Additional history exists DTap/Tdap [...] this encounter Medical Devices Implanted Type Area Heading Matcher And Assembler Device Identifier Shelf Expiration Date Model / Serial / Lot Baseplate #6 Tritanium - [id number] Implanted:Qty: 1 on 10/22/2019 by Sammy Higgins DO at OR [facility] Left: Knee LISSET : ORTHOPAEDICS 07/23/2024 5536-B-600 / / [id number] Knee Triathlon Bead No Cuong L 6 - [id number] Implanted:Qty: 1 on 10/22/2019 by Sammy Higgins DO at OR [facility] Left: Knee LISSET : ORTHOPAEDICS 07/09/2024 5517-F-601 / / [id number] Patella Symmetric S33mm 9mm - [id number] Implanted:Qty: 1 on 10/22/2019 by Sammy Higgins DO at OR [facility] Left: Knee LISSET : ORTHOPAEDICS 10/29/2023 5556-L-339 / / [id number] Triathlon X3 Tibial Bearing Insert Cs Ramirez 6 Typ Cs Thkns 10mm Implanted:Qty: 1 on 10/22/2019 by Sammy Higgins DO at OR [facility] Left: Knee 01/07/2024 5531-G-610 -E / / [id number] documented as of this encounter Visit Diagnoses Diagnosis Chronic diastolic congestive heart failure, NYHA class 3 (HCC)- Primary Chronic diastolic heart failure documented in this encounter Advance Directives Documents on File Type Date Recorded Patient Suit Maker Expl anation Advance Directives and Livin g Will 05/25/2017 LIVING WILL Power of Internet Consultant 05/25/2017 POWER OF A TTORNEY * [...] and were consensually agreed upon. Care Teams Family Service Center Director Relationship Specialty Start Date End Date Heron Hutchinson MD [address] [place] [address] PCP - General 03/28/1997 documented as of this encounter
--- OUTSIDE RECORDS SUMMARY | 2024-03-08 10:06 | External Medical Summary ---
Author Name Unknown Address Unknown Organization K01:[facility] [place] - [address] [place] [address] Laboratory Report Ordering Provider Test Date Status KRYS CHRIS 03/05/2024 09:41:40 Final Exclude Heart Failure: <300 pg/mL
Diagnose Heart Failure:
Age <50 yr: >450 pg/mL
50-75 yr: >900 pg/mL
>75 yr: >1800 pg/mL
GFR is 30-59 mL/min: >1200 pg/mL or Age- adjusted values
GFR <30 mL/min: do not use, not reliable

Prognostic threshold: 1000 pg/mL Observation Date Value Abnormality Reference (Units ) Status BNP, Pro-hormone 03/05/2024 09:41:40 3623 Above high no rmal <300 (pg/mL) Final Performing Location [facility] [place] - [address] [place] [address]
--- OUTSIDE RECORDS SUMMARY | 2024-03-08 10:06 | External Medical Summary | Summary of Care ---
Author Name Unknown Organization [facility] Address [address] [facility] [place] [address] Phone [phone] Care Team Providers Care Sugarcane Research Technician Name Role Phone Heron Hutchinson MD Primary Care Provider [phone] Reason for Visit * Reason Onset Date Comments Order Request 02/07/2024 Encounter Details Date Type Department Care Team (Late st Contact Info) Description 02/07/2024 Telephone Orthopaedics [facility] [address] [facility] [place] [address] Rohan Richards MD [address] [place] [id number] Order Request Allergies No known active allergiesdocumented as of this encounter (statuses as of 02/29/2024) Medications Cholecalciferol (VITAMIN D3) 1000 units CAPSIndications :1 tablet monday, monday, monday and monday. monday, and monday 2 tablets Take 1 Capsule by mouth in the morning. Active Vitron-C 65-125 MG Oral Tablet (Iron-Vitamin C 65-125 mg per tab)Indications :Iron deficiency anemia, unspecified iron deficiency anemia type Take 1 Tablet by mouth in the morning. 30 Tablet 1 024 Active Omeprazole 20 MG Oral Capsule Delayed Release (PriLOSEC)Indic ations:Iron deficiency anemia due to chronic blood loss Take 1 Capsule by mouth in the morning. 1 hour before the first meal of the day. 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 stage 3a chronic kidney disease (HCC) TAKE 1 TABLET BY MOUTH ONCE DAILY IN THE MORNING 90 Tablet 3 024 Active Atorvastatin Calcium 20 MG Oral Tablet (Lipitor)Indica tions:Dyslipide carolyn, goal LDL below 100 TAKE ONE TABLET BY MOUTH ONCE DAILY 90 Tablet 3 024 Active Potassium Chloride ER 20 MEQ Oral [...] BY MOUTH TWICE DAILY 180 Tablet 3 024 Active Warfarin Sodium 5 MG Oral Tablet (Coumadin)Indic ations:Atrial fibrillation (HCC) Take 1 to 2 tablets by mouth DIRECTED by ANTICOAGULATION CLINIC 120 Tablet 3 023 2023 Discontinued Metoprolol Succinate ER 25 MG Oral Tablet Extended Release 24 Hour (toPROL XL)Indications: Chronic atrial fibrillation (HCC) TAKE ONE TABLET BY MOUTH ONCE DAILY 90 Tablet 3 023 2023 Discontinued documented as of this encounter (statuses as of 02/29/2024) Active Problems Problem Noted Date Diagnosed Date [...] 3 04/01/2019 Atherosclerotic heart diseas e of [place] coronary artery without angina pectoris 04/01/2019 Secondary [...] care home current use of 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 Overview (12/26/2016): ICD-10 update of inactive term documented as of this encounter (statuses as of 02/29/2024) Resolved Problems Problem Noted Date Diagnosed Date [...] URI with cough 08/15/2014 018 ORBIT-AF Research Other*[id number] 07/12/2010 07/12/2013 Overview (07/12/2010): PROJECT: #[id number], SPONSOR: Owen, PI: Ezio Johnson MD SUMMARY: [...] encounter can be closed. CONTACT: Lu Neely, Privacy Officer Chronic rhinitis 01/18/2010 08/15/2014 ADVANCE DIRECTIVE INFORMATION [...] as of this encounter (statuses as of 02/29/2024) Immunizations Name Administration Dates Next Due COVID-19 [...] 2:46 PM EDT Domonique Yarbrough, MART * Are you blind or do you [...] Author No 10/22/2019 2:46 PM EDT Domonique Yarbrouhg RN documented in this encounter Miscellaneous Notes * Telephone Encounter - Belkys Morris OSA - 02/29/2024 11:27 AM EST PER ROHAN CASSIDY PT IS SCHEDULED FOR 04/24/24. SCHEDULED WITH PT COCO * Telephone Encounter - Belkys Morris OSA - 02/26/2024 7:45 AM EST EMAIL SENT BACK TO GET FINAL SAY FOR TRIAGE * Telephone Encounter - Belkys Morris OSA - 02/21/2024 7:47 AM EST Pt still hasn't had xray done * Telephone Encounter - Belkys Morris OSA - 02/16/2024 9:48 AM EST 02/16/24 CALLED AND SPOKE TO THE PT AND HIS AND THEY PLAN TO HAVE THE XRAY DONE MONDAY KF * Telephone Encounter - Belkys Morris OSA - 02/12/2024 10:10 AM EST 02/12/24 SPOKE TO PT AN D TOLD HIM THE ORDER HAS BEEN PLACED FOR THE XRAY AND ONCE HE GETS THAT COMPLETED WE CAN MOVE ON WITH THE TRIAGING/SCHEDULING PROCESS. KF * Telephone Encounter - Belkys Morris OSA - 02/08/2024 1:08 PM EST 02/08/24 EMAIL SENT FOR TRIAGE OF PACEMAKER KF * Telephone Encounter - Radha Rubio OSA - 02/07/2024 10:54 AM EST Please see order placed for MRI and assist with scheduling documented in this encounter Plan of Treatment Upcoming Encounters Date Type Department Care Team (Late st Contact Info) Description 03/05/2024 9:20 AM EST [facility] [phone] [facility] [address] [facility] [place] [address] 03/07/2024 9:00 AM EST Home Visit [facility] [address] [place] [address] Cuong Ibrahim PA-C [address] [place] [address] 03/18/2024 4:00 PM EST [facility] Visit [facility], [facility] [address] [place] [address] Augustina Orellana, RN [address] [place] [address] 04/24/2024 9:00 AM EST Appointment MRI, [place] [address] [place] [facility] [address] 09/17/2024 10:15 AM EDT Office Visit Urology, [facility] [address] [place] [address] Zeus Davidson MD [address] [place] [address] Health Maintenance Due Date Last Done Comments Adult Wellness Visit 06/01/2003 Albumin/Creatinine Ratio 12/21/2022 022, 10/11/2019, 05/22/2018 COVID-19 Vaccine ( season) 2023 04/17/2022, 02/06/2021, 05/29/2020, Additional history exists CKD PHOS USE SMARTSET 64736 12/30/202307/2022, 12/21/2021, 09/12/2018, Additional history exists Depression Screening 12/27/2024 12/28/2023 Zoster Vaccines (2 of 2) 12/27/2024 10/17/2017, 09/26 Postponed from 12/12/2017 (Patient Declined After Education) CKD HGB USE SMARTSET 99847 02/04/202502/04, 01/23/2024, 12/28/2023, Additional history exists DTap/Tdap [...] this encounter Medical Devices Implanted Type Area Dean For Student Affairs Device Identifier Shelf Expiration Date Model / Serial / Lot Baseplate #6 Tritanium - [id number] Implanted:Qty: 1 on 10/22/2019 by Sammy Higgins DO at OR [facility] Left: Knee LISSET : ORTHOPAEDICS 07/23/2024 5536-B-600 / / [id number] Knee Triathlon Bead No Cuong L 6 - [id number] Implanted:Qty: 1 on 10/22/2019 by Sammy Higgins DO at OR [facility] Left: Knee LISSET : ORTHOPAEDICS 07/09/2024 5517-F-601 / / [id number] Patella Symmetric S33mm 9mm - [id number] Implanted:Qty: 1 on 10/22/2019 by Sammy Higgins [...] Documents on File Type Date Recorded Patient Aircraft Engineer Expl anation Advance Directives and Livin g Will 05/25/2017 LIVING WILL Power of Oven Heater Helper 05/25/2017 POWER OF A TTORNEY * [...] and were consensually agreed upon. Care Teams Sugarcane Research Technician Relationship Specialty Start Date End Date Heron Hutchinson MD [address] [place] [address] PCP - General 03/28/1997 documented as of this encounter
--- OUTSIDE RECORDS SUMMARY | 2024-03-08 10:06 | External Medical Summary | Summary of Care ---
Author Name Unknown Organization [facility] Address [address] [place] [facility] [place] [place] [address] Phone [phone] Care Team Providers Care Sign Builder Supervisor Name Role Phone Heron Hutchinson MD Primary Care Provider [phone] Reason for Visit * Reason Onset Date Comments Order Request 02/07/2024 Encounter Details Date Type Department Care Team (Late st Contact Info) Description 02/07/2024 Telephone Orthopaedics [facility] [address] [facility] [place] [address] Irineo Richards MD [address] [place] [phone] Order Request Allergies No known active allergiesdocumented as of this encounter (statuses as of 02/26/2024) Medications Cholecalciferol (VITAMIN D3) 1000 units CAPSIndications [...] as of this encounter (statuses as of 02/26/2024) Active Problems Problem Noted Date Diagnosed Date [...] 3 04/01/2019 Atherosclerotic heart diseas e of [place] coronary artery without angina pectoris 04/01/2019 Secondary [...] BIPAP Plus set at 12 cwp AHP FDC current use of 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 Overview (12/26/2016): ICD-10 update of inactive term documented as of this encounter (statuses as of 02/26/2024) Resolved Problems Problem Noted Date Diagnosed Date [...] URI with cough 08/15/2014 018 ORBIT-AF Research Other*[id number] 07/12/2010 07/12/2013 Overview (07/12/2010): PROJECT: #[id number], SPONSOR: Owen, PI: Ezio Johnson MD SUMMARY: [...] encounter can be closed. CONTACT: Lu Neely, Carding Machine Operator Chronic rhinitis 01/18/2010 08/15/2014 ADVANCE DIRECTIVE INFORMATION [...] as of this encounter (statuses as of 02/26/2024) Immunizations Name Administration Dates Next Due COVID-19 [...] Description 03/05/2024 9:20 AM EST [facility] [address] [facility] [place] [address] [facility] [address] [place], [place] [address] [address] 03/07/2024 9:00 AM EST [facility] [address] [place] [address] Cuong Ibrahim PA-C [address] [place] [address] 03/18/2024 4:00 PM EST [facility] Visit [facility] [address] [place] [address] Augustina Orellana, RN [address] [place] [address] 09/17/2024 10:15 AM EDT Office Visit Urology, [facility] [address] [place] [address] Zeus Davidson MD [address] [place] [address] Health Maintenance Due Date Last Done Comments Adult Wellness Visit 06/01/2003 Albumin/Creatinine Ratio 12/21/2022 022, 10/11/2019, 05/22/2018 COVID-19 Vaccine ( season) 2023 04/17/2022, 02/06/2021, 05/29/2020, Additional history exists CKD PHOS USE SMARTSET 54044 12/30/202307/2022, 12/21/2021, 09/12/2018, Additional history exists Depression Screening 12/27/2024 12/28/2023 Zoster Vaccines (2 of 2) 12/27/2024 10/17/2017, 09/26 Postponed from 12/12/2017 (Patient Declined After Education) CKD HGB USE SMARTSET 14857 02/04/202502/04, 01/23/2024, 12/28/2023, Additional history exists DTap/Tdap [...] this encounter Medical Devices Implanted Type Area Travel Professional Device Identifier Shelf Expiration Date Model / Serial / Lot Baseplate #6 Tritanium - [id number] Implanted:Qty: 1 on 10/22/2019 by Sammy Higgins, at OR [facility] Left: Knee LISSET : ORTHOPAEDICS 07/23/2024 5536-B-600 / / [id number] Knee Triathlon Bead No Cuong L 6 - [id number] Implanted:Qty: 1 on 10/22/2019 by Sammy Higgins DO at OR [facility] Left: Knee LISSET : ORTHOPAEDICS 07/09/2024 5517-F-601 / / [id number] Patella Symmetric S33mm 9mm - [id number] Implanted:Qty: 1 on 10/22/2019 by Sammy Higgins DO at OR [facility] Left: Knee LISSET : ORTHOPAEDICS 10/29/2023 5556-L-339 / / [id number] Triathlon X3 Tibial Bearing Insert Cs Ramirez 6 Typ Cs Thkns 10mm Implanted:Qty: 1 on 10/22/2019 by Sammy Higgins DO at OR [facility] Left: Knee 01/07/2024 5531-G-610 -E / / [id number] documented as of this encounter Advance Directives Documents on File Type Date Recorded Patient Senior Solutions Workflow Consultant Expl anation Advance Directives and Livin g Will 05/25/2017 LIVING WILL Power of Information Assistant 05/25/2017 POWER OF A TTORNEY * Full [...] and were consensually agreed upon. Care Teams Sign Builder Supervisor Relationship Specialty Start Date End Date Heron Hutchinson MD [address] [facility] [place] [address] PCP - General 03/28/1997 documented as of this encounter
--- OUTSIDE RECORDS SUMMARY | 2024-03-08 10:07 | External Medical Summary ---
Author Name Unknown Address Unknown Organization : Laboratory Report Ordering Provider Test Date Status ALLA NEWBERRY 02/21/2024 10:07:16 Final Therapeutic ranges for non-o perative patients:
Prophylaxsis/treatment of DVT: (Range:2.0-3.0)
Treatment of pulmonary embolism:(Range:2.0-3.0)
Prevention of systemic embolism from:
-tissue heart valves
-acute myocardial infarction
-valvular heart disease
-atrial fibrillation
(Range: 2.0-3.0)
Mechanical prosthetic valves: (Range: 2.5-3.5) Observation Date Value Abnormality Reference (Units ) Status INR in Capillary blood by Coagulation assay 02/21/2024 10:07:16 3.0 (INR) Final Performing Location
--- OUTSIDE RECORDS SUMMARY | 2024-03-08 10:07 | External Medical Summary | Summary of Care ---
Author Name Unknown Organization [facility] Address [address] [facility] [place] [address] Phone [phone] Care Team Providers Care Electrical Manufacturing Technician Name Role Phone Heron Hutchinson MD Primary Care Provider [phone] Encounter Details Date Type Department Care Team (Late st Contact Info) Description 02/02/2024 12:30 PM EST [facility] [address] [place] [address] Augustina Orellana, RN [address] [place] [address] Allergies No known active allergiesdocumented as of this encounter (statuses as of 02/20/2024) Medications Cholecalciferol (VITAMIN D3) 1000 units CAPSIndications [...] meal of the day. 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 Active aspirin 81 MG chewable tablet Take 1 Tab by mouth daily. 34 Tab 2 019 2023 Discontinued(M edication List Clean Up) Warfarin Sodium 5 MG Oral Tablet (Coumadin)Indic ations:Atrial fibrillation (HCC) Take 1 to 2 tablets by mouth DIRECTED by ANTICOAGULATION CLINIC 120 Tablet 3 023 2023 Discontinued Metoprolol Succinate ER 25 MG Oral Tablet Extended Release 24 Hour (toPROL XL)Indications: Chronic atrial fibrillation (HCC) TAKE ONE TABLET BY MOUTH ONCE DAILY 90 Tablet 3 023 2023 Discontinued Isosorbide Dinitrate 20 MG Oral Tablet (Isordil)Indica tions:Chronic diastolic congestive heart failure, NYHA class 3 (HCC) TAKE 1 TABLET BY MOUTH TWICE DAILY 180 Tablet 3 024 2023 Discontinued(R efill) hydroCHLOROthia zide 25 MG Oral Tablet (Hydrodiuril)In dications:Chron ic atrial fibrillation (HCC),S/P TAVR (transcatheter aortic valve replacement) TAKE ONE TABLET BY MOUTH 2-3 TIMES a WEEK 36 Tablet 024 2023 Discontinued(M edication List Clean Up) LORazepam 0.5 MG Oral Tablet (Ativan)Indicat ions:Anxiety disorder due to known physiological condition One tab an hour before, repeat 15 min prior and at start of test 4 Tablet 024 2023 Discontinued(M edication List Clean Up) documented as of this encounter (statuses as of 02/20/2024) Active Problems Problem Noted Date Diagnosed Date [...] 3 04/01/2019 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 CONTACT: Lu Neely, Multimedia Educational Specialist Chronic rhinitis 01/18/2010 08/15/2014 ADVANCE DIRECTIVE INFORMATION [...] as of this encounter (statuses as of 02/20/2024) Immunizations Name Administration Dates Next Due COVID-19 [...] Sign Reading Time Taken Comments Blood Pressure 112/62 02/02/2024 1:19 PM EST Pulse 60 02/02/2024 1:19 PM EST Temperature 36.7 C (98 F) 02/02/2024 1:19 PM EST Respiratory Rate 18 02/02/2024 1:19 PM EST Oxygen Saturation 95% 02/02/2024 1:19 PM EST Inhaled Oxygen Concentration - - Weight - - Height - - Body Mass Index - - documented in this encounter Functional Status * Are you [...] Author No 10/22/2019 2:46 PM EDT Domonique Yarbruogh RN documented in this encounter Progress Notes * Augustina Orellana RN - 02/02/2024 12:59 PM EST Current Concerns: Pt seen for enrollment to [facility] and [facility] Admitted to [facility] 01/25- 01/31/24 for symptomatic anemia, CHF, Afib, HTN Having a video capsule done next week Had 2 iron infusions while in hospital and will f/u with hematology- waiting to hear from heme[facility]onc at [facility] per as far as next appt Goals - breathe better, take care of lump on arm Pt's oxygen level at rest on room air was running from 91-93% Patient walked for several minutes around home and oxygen level dropped stayed in the low 90's He continues to have SOB with exertion Pt has firm mass on right elbow, slightly smaller than a baseball He reports it does not cause him pain It is not red or warm to touch He reports he has shown provider at last visit and possibly getting an MRI done and has f/u with ortho Physical Exam: Physical Exam Constitutional: General: He is not in acute distress. Cardiovascular: Rate and Rhythm: Normal rate and regular rhythm. Pulses: Normal pulses. Heart sounds: Normal heart sounds. Pulmonary: Effort: Pulmonary effort is normal. Breath sounds: Normal breath sounds. Abdominal: General: Bowel sounds are normal. Palpations: Abdomen is soft. Musculoskeletal: Right lower leg: Edema (+1) present. Left lower leg: Edema (trace) present. Skin: General: Skin is warm and dry. Neurological: Mental Status: He is alert and oriented to person, place, and time. Review of Systems: Review of Systems Constitutional: Positive for fatigue. HENT: Negative. Eyes: Negative. Respiratory: Positive for shortness of breath (RODRIGUEZ). Cardiovascular: Positive for leg swelling. Gastrointestinal: Negative. Genitourinary: Negative. Musculoskeletal: Positive for arthralgias and gait problem. Mass on right elbow Skin: Negative. Neurological: Positive for weakness (general). Psychiatric/Behavioral: Negative. Care Plan Goal Progress: Orders Placed: No orders of the defined types were placed in this encounter. Medications Given: Care Gaps: Care Gaps Care gaps closed this contact: Education;Medications;Plan of Care (POC) (02/20/24815) Type of education: Clinical/disease (02/20/24815) Type of medication care gap: Medication adherence (02/20/24815) Type of plan of care (POC) care gap: Creation of plan of care (POC) and/or Integrated Care Plan (ICP);Education and review of exacerbation plan (02/20/24815) documented in this encounter Plan of Treatment Upcoming Encounters Date Type Department Care Team (Late st Contact Info) Description 02/21/2024 9:50 AM EST [place] [address] [facility] [place] [phone] Her[facility]erto [facility] [address] [facility] [place] [address] 03/07/2024 9:00 AM EST [facility] [place], [facility] [address] [place] [address] Cuong Ibrahim PA-C [address] [place] [address] 03/18/2024 4:00 PM EST [facility] [place], [facility] [address] [place] [address] Augustina Orellana RN [address] [place] [address] 09/17/2024 10:15 AM EDT Office Visit Urology, [facility] [address] [place] [address] Zeus Davidson MD [address] [place] [address] Health Maintenance Due Date Last Done Comments Adult Wellness Visit 06/01/2003 Albumin/Creatinine Ratio 12/21/2022 022, 10/11/2019, 05/22/2018 COVID-19 Vaccine ( season) 2023 04/17/2022, 02/06/2021, 05/29/2020, Additional history exists CKD PHOS USE SMARTSET 45013 12/30/202307/2022, 12/21/2021, 09/12/2018, Additional history exists Depression Screening 12/27/2024 12/28/2023 Zoster Vaccines (2 of 2) 12/27/2024 10/17/2017, 09/26 Postponed from 12/12/2017 (Patient Declined After Education) CKD HGB USE SMARTSET 10998 02/04/202502/04, 01/23/2024, 12/28/2023, Additional history exists DTap/Tdap [...] this encounter Medical Devices Implanted Type Area Tight Cooper Device Identifier Shelf Expiration Date Model / Serial / Lot Baseplate #6 Tritanium - [id number] Implanted:Qty: 1 on 10/22/2019 by Sammy Higgins DO at OR [facility] Left: Knee LISSET : ORTHOPAEDICS 07/23/2024 5536-B-600 / / [id number] Knee Triathlon Bead No Cuong L 6 - [id number] Implanted:Qty: 1 on 10/22/2019 by Sammy Higgins DO at OR [facility] Left: Knee LISSET : ORTHOPAEDICS 07/09/2024 5517-F-601 / / [id number] Patella Symmetric S33mm 9mm - [id number] Implanted:Qty: 1 on 10/22/2019 by Sammy Higgins DO at OR [facility] Left: Knee LISSET : ORTHOPAEDICS 10/29/2023 5556-L-339 / / [id number] Triathlon X3 Tibial Bearing Insert Cs Ramirez 6 Typ Cs Thkns 10mm Implanted:Qty: 1 on 10/22/2019 by Sammy Higgins, DO at OR [facility] Left: Knee 01/07/2024 5531-G-610 -E / / [id number] documented as of this encounter Advance Directives Documents on File Type Date Recorded Patient Rag Grader Expl anation Advance Directives and Livin g Will 05/25/2017 LIVING WILL Power of Blood Splatter Analyst 05/25/2017 POWER OF A TTORNEY * [...] and were consensually agreed upon. Care Teams Electrical Manufacturing Technician Relationship Specialty Start Date End Date Heron Hutchinson MD [address] [place] [address] PCP - General 03/28/1997 documented as of this encounter
--- OUTSIDE RECORDS SUMMARY | 2024-03-08 10:07 | External Medical Summary | Summary of Care ---
Author Name Unknown Organization [facility] Address [address] [place] [address] Phone [phone] Care Team Providers Care Inspector Handbag Frames Name Role Phone Heron Hutchinson MD Primary Care Provider [phone] Reason for Visit * Reason Onset Date Comments Information 02/15/2024 Encounter Details Date Type Department Care Team ([facility] Contact Info) Description 02/15/2024 Telephone [facility] [place] [address] [place] [phone] Megha Salgado, CEE [address] [place] [address] Information (//) Allergies No known active allergiesdocumented as of this encounter (statuses as of 02/15/2024) Medications Cholecalciferol (VITAMIN D3) 1000 units CAPSIndications: [...] as of this encounter (statuses as of 02/15/2024) Active Problems Problem Noted Date Diagnosed Date [...] 3 04/01/2019 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 CONTACT: Lu Neely, Wood Grainer Chronic rhinitis 01/18/2010 08/15/2014 ADVANCE DIRECTIVE INFORMATION [...] as of this encounter (statuses as of 02/15/2024) Immunizations Name Administration Dates Next Due COVID-19 [...] 2:46 PM KET Domonique Yarbrough RN documented as of this encounter Mental Status * Because of a physical, mental, or emotional condition, do you have serious difficulty concentrating, remembering, or making decisions? (5 years old or older) Answer Entry Date Author No 10/22/2019 2:46 PM Domonique Casillas RN documented in this encounter Miscellaneous Notes * Telephone Encounter - Megha Salgado OSA - 02/15/2024 11:47 AM EST Request in the dashboard to schedule [facility]W to set up wearables I saw they were just ordered form 02/12 visit so called pt and doesn't have yet so will have to check back later and schedule appt with [facility] Reviewed with [facility] and they should have gotten this request so they will handle via me giving them MRN documented in this encounter Plan of Treatment Upcoming Encounters Date Type Department Care Team (Late st Contact Info) Description 02/21/2024 9:50 AM EST [facility] [place] [address] [facility] [address] [facility] [address] [facility] [address] 03/07/2024 9:00 AM EST [facility] [address] [place] [address] Cuong Ibrahim PA-C [address] [place] [address] 03/18/2024 4:00 PM EST [facility] [address] [place] [address] Augustina Orellana, RN [address] [facility] [place] [address] 09/17/2024 10:15 AM EDT Office Visit Urology, [facility] [address] [place] [address] Zeus Davidson MD [address] [place] [address] Health Maintenance Due Date Last Done Comments Adult Wellness Visit 06/01/2003 Albumin/Creatinine Ratio 12/21/2022 022, 10/11/2019, 05/22/2018 COVID-19 Vaccine ( season) 2023 04/17/2022, 02/06/2021, 05/29/2020, Additional history exists CKD PHOS USE SMARTSET 27149 12/30/202307/2023, 12/21/2021, 09/12/2018, Additional history exists Depression Screening 12/27/2024 12/28/2023 Zoster Vaccines (2 of 2) 12/27/2024 10/17/2017, 09/26 Postponed from 12/12/2017 (Patient Declined After Education) CKD HGB USE SMARTSET 60771 02/04/202502/04, 01/23/2024, 12/28/2023, Additional history exists DTap/Tdap [...] encounter Medical Devices Implanted Type Area Senior Economist Device Identifier Shelf Expiration Date Model / Serial / Lot Baseplate #6 Tritanium - [id number] Implanted:Qty: 1 on 10/22/2019 by Sammy Higgins, DO at OR [facility] Left: Knee LISSET : ORTHOPAEDICS 07/23/2024 5536-B-600 / / [id number] Knee Triathlon Bead No Cuong L 6 - [id number] Implanted:Qty: 1 on 10/22/2019 by Sammy Higgins, DO at OR [facility] Left: Knee LISSET : ORTHOPAEDICS 07/09/2024 5517-F-601 / / [id number] Patella Symmetric S33mm 9mm - [id number] Implanted:Qty: 1 on 10/22/2019 by Sammy Higgins, at OR [facility] Left: Knee LISSET : ORTHOPAEDICS 10/29/2023 5556-L-339 / / [id number] Triathlon X3 Tibial Bearing Insert Cs Ramirez 6 Typ Cs Thkns 10mm Implanted:Qty: 1 on 10/22/2019 by Sammy Higgins DO at OR [facility] Left: Knee 01/07/2024 5531-G-610 -E / / [id number] documented as of this encounter Advance Directives Documents on File Type Date Recorded Patient Marketing And Development Coordinator Expl anation Advance Directives and Livin g Will 05/25/2017 LIVING WILL Power of Layaway Clerk 05/25/2017 POWER OF A TTORNEY * [...] and were consensually agreed upon. Care Teams Inspector Handbag Frames Relationship Specialty Start Date End Date Heron Hutchinson MD [address] [place] [address] PCP - General 03/28/1997 documented as of this encounter
--- OUTSIDE RECORDS SUMMARY | 2024-03-08 10:07 | External Medical Summary | Summary of Care ---
Author Name Unknown Organization [facility] Address [address] [place] [address] Phone [phone] Care Team Providers Care Manager Bilingual Name Role Phone Heron Hutchinson MD Primary Care Provider [phone] Reason for Visit * Reason Onset Date Comments [facility]: Maintenance 02/19/2024 Encounter Details Date Type Department Care Team (Late st Contact Info) Description 02/19/2024 Telephone [facility], [place] [address] [place] [phone] Socorro Coyle LPN [address] [place] [address] [facility]: Maintenance Allergies No known active allergiesdocumented as of this encounter (statuses as of 02/19/2024) Medications Cholecalciferol (VITAMIN D3) 1000 units CAPSIndications: [...] as of this encounter (statuses as of 02/19/2024) Active Problems Problem Noted Date Diagnosed Date [...] 3 04/01/2019 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 CONTACT: Lu Neely, Working Foreman Chronic rhinitis 01/18/2010 08/15/2014 ADVANCE DIRECTIVE INFORMATION [...] as of this encounter (statuses as of 02/19/2024) Immunizations Name Administration Dates Next Due COVID-19 [...] encounter Miscellaneous Notes * Telephone Encounter - Socorro Coyle LPN - 02/19/2024 12:59 PM EST Images from the original note were not included. [facility] Remote Patient Monitoring Unable to contact patient: Trigger type: Spoke to patient spouse Denies any increased SOB edema or chest pain Will recheck his pulse ox now Spo2 96% RA Encouraged to call with any issues documented in this encounter Plan of Treatment Upcoming Encounters Date Type Department Care Team (Late st Contact Info) Description 02/21/2024 9:50 AM EST Anticoagulation Pharmacy, [place] [address] [facility] [address] [place] [phone] [facility] [address] [facility] [place] [address] 03/07/2024 9:00 AM EST [facility], [facility] [address] [facility] [place] [address] Cuong Ibrahim PA-C [address] [facility] [place] [address] 03/18/2024 4:00 PM EST [facility], [facility] [address] [place] [address] Augustina Orellana RN [address] [facility] [place] [address] 09/17/2024 10:15 AM EDT Office Visit Urology, [facility] [address] [place] [address] Zeus Davidson MD [address] [place] [address] Health Maintenance Due Date Last Done Comments Adult Wellness Visit 06/01/2003 Albumin/Creatinine Ratio 12/21/2022 022, 10/11/2019, 05/22/2018 COVID-19 Vaccine ( season) 2023 04/17/2022, 02/06/2021, 05/29/2020, Additional history exists CKD PHOS USE SMARTSET 61481 12/30/2023 1007/2022, 12/21/2021, 09/12/2018, Additional history exists Depression Screening 12/27/2024 12/28/2023 Zoster Vaccines (2 of 2) 12/27/2024 10/17/2017, 09/26 Postponed from 12/12/2017 (Patient Declined After Education) CKD HGB USE SMARTSET 25749 02/04/202502/04, 01/23/2024, 12/28/2023, Additional history exists DTap/Tdap [...] this encounter Medical Devices Implanted Type Area Associate Director Data & Analytics Device Identifier Shelf Expiration Date Model / Serial / Lot Baseplate #6 Tritanium - [id number] Implanted:Qty: 1 on 10/22/2019 by Sammy Higgins DO at OR [facility] Left: Knee LISSET : ORTHOPAEDICS 07/23/2024 5536-B-600 / / [id number] Knee Triathlon Bead No Cuong L 6 - [id number] Implanted:Qty: 1 on 10/22/2019 by Sammy Higgins DO at OR [facility] Left: Knee LISSET : ORTHOPAEDICS 07/09/2024 5517-F-601 / / [id number] Patella Symmetric S33mm 9mm - [id number] Implanted:Qty: 1 on 10/22/2019 by Sammy Higgins [...] Documents on File Type Date Recorded Patient Ict Programmer Expl anation Advance Directives and Livin g Will 05/25/2017 LIVING WILL Power of Manager Practice 05/25/2017 POWER OF A TTORNEY * Full [...] were consensually agreed upon. Care Teams Manager Bilingual Relationship Specialty Start Date End Date Heron Hutchinson MD [address] [facility] [place] [place] [address] PCP - General 03/28/1997 documented as of this encounter
--- OUTSIDE RECORDS SUMMARY | 2024-03-08 10:07 | External Medical Summary | Summary of Care ---
Author Name Unknown Organization [facility] Address [address] [place] [address] Phone [phone] Care Team Providers Care Vmware Systems Administrator Name Role Phone Heron Hutchinson MD Primary Care Provider [phone] Reason for Referral * Evaluate & Treat - Unlimited Visits (Within 10 days (routine)) - Authorized Specialty Diagnoses / Procedures Referred By Charmaine randolph Referred To Contact Manager Filter Diagnoses Chronic diastolic congestive heart failure, NYHA class 3 (HCC) eHrmelindo Vuong, DO [address] [facility] [address] Phone: tel: fax: Referral ID Status Reason Start Date Expiration Date Visits Requested Visits Authorized [id number] Authorized Specialty Services Required 4 [phone] Question Answer Referral Priority Within 10 days (routine) Program Type [facility] Device(s) Requested Pulse Ox, Scale Where should this appointment be scheduled? [facility] Alarm Settings Standard per protocol Comments Primary Manager Filter: Augustina Orellana Is the patient already enrolled with another [facility] device/service? (If no, will need to "push the button") No Does the patient have a physical address? (If no, provide physical address if requesting device) Yes Requested Devices/IVR: Requested Device(s): Scale Please specify if patient needs tray or patient is over 300 lbs: No Does the patient need a tray? (Used is patient does not have hard surface for scale) No Heart Failure IVR (Interactive Voice Response) Frequency (Default: Weekly-M/W/F) Time: Anytime Device triggered (default) OR Specific Time: N/A Requested Device(s): Blood pressure Cuff Size: medium Target goal BP (eg less than 130/80): 130/80 High and Low Limits for Systolic AND Diastolic readings: Systolic Low 90 Systolic High 180 Diastolic Low 50 Diastolic High 100 Frequency of BP checks (eg, BID, daily, etc): Daily Begin Date: 02/15/2024 End Date (must be reevaluated at 8 weeks): 02/15/2024 + 8 weeks Requested Device(s): Pulse Oximeter Target range that will be used in Advanced Monitored Caregiving as default is 95-100. This means the patient will trigger if the pulse oximeter result is less than 95% Frequency of pulse oximeter checks (eg, BID, daily, etc): Daily Start Date: 02/15/2024 Stop Date: 02/15/2024 + 8 weeks * Evaluate & Treat - Unlimited Visits (Within 3 days (urgent)) - Authorized Specialty Diagnoses / Procedures Referred By Charmaine randolph Referred To Contact Manager Filter Diagnoses Chronic diastolic congestive heart failure, NYHA class 3 (HCC) Hermelindo Vuong DO [address] [facility] [place] [address] Phone: tel: fax: Referral ID Status Reason Start Date Expiration Date Visits Requested Visits Authorized [id number] Authorized Specialty Services Required 4 [phone] Question Answer Referral Priority Within 3 days (urgent) Program Type [facility] Current Health Device(s) Requested 24/7 Wearable, Scale, Pulse Ox Where should this appointment be scheduled? [facility] Alarm Settings Standard per protocol Comments Current Health Monitor Ordering Form: Method of Delivery: On-Hand Kit Delivery: "One of our team members will deliver the kit to your home and aide in the set up." Enrollment Diagnosis: Congestive Heart Failure Anticipated Duration: 7-14 days Responsible Program: [facility] Encounter Details Date Type Department Care Team (Late st Contact Info) Description 02/13/2024 4:00 PM EST [facility] [place] [address] [place] [address] Augustina Orellana RN [address] [place] [address] Chronic diastolic congestive heart failure, NYHA class 3 (HCC)* Allergies No known active allergiesdocumented as of this encounter (statuses as of 02/20/2024) Medications Cholecalciferol (VITAMIN D3) 1000 units CAPSIndications: [...] 3 04/01/2019 Atherosclerotic heart diseas e of [place] coronary artery without angina pectoris [...] BIPAP Plus set at 12 cwp AHP longterm current use of 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 Overview (12/26/2016): [...] URI with cough 08/15/2014 018 ORBIT-[employer] Research Other*[id number] 07/12/2010 07/12/2013 Overview (07/12/2010): PROJECT: #[id number], SPONSOR: Owen, PI: Ezio Johnson MD SUMMARY: [...] encounter can be closed. CONTACT: Lu Neely, Surface Plate Inspector Chronic rhinitis 01/18/2010 08/15/2014 ADVANCE DIRECTIVE INFORMATION [...] Sign Reading Time Taken Comments Blood Pressure 116/62 02/13/2024 3:28 PM EST Pulse 67 02/13/2024 3:28 PM EST Temperature 36.7 C (98 F) 02/13/2024 3:28 PM EST Respiratory Rate 18 02/13/2024 3:28 PM EST Oxygen Saturation 92% 02/13/2024 3:28 PM EST Inhaled Oxygen Concentration - - Weight 81.6 kg (180 lb) 02/13/2024 3:28 PM EST Height - - Body Mass Index 29.95 02/05/2024 11:35 AM EST documented in this encounter Functional Status * Are you deaf or do you have serious difficulty hearing? Answer Date of Assessment Author No 10/22/2019 2:46 PM KET Domonique Yarbrough RN * Are you blind or do you have serious difficulty seeing, even when wearing glasses? Answer Date of Assessment Author No 10/22/2019 2:46 PM KET Domonique Yarbrough RN * Do you have serious difficulty walking or climbing stairs? (5 years old or older) Answer Date of Assessment Author Yes 10/22/2019 2:46 PM Domonique Casillas RN * Do you have difficulty dressing or bathing? (5 years old or older) Answer Date of Assessment Author No 10/22/2019 2:46 PM KET Domonique Yarbrough RN * Because of a [...] Progress Notes * Augustina Orellana RN - 02/13/2024 3:16 PM EST Images from the original note were not included. Current Concerns: Pt has been weighing daily every am Started at 188 lbs since home from hospital and has been down to 180 lbs for past 6 days Ordered CHM Wearable and scale, pulse ox Has been having low readings, down to 70's and 80's, even with rest Pt reports he does get SOB with exertion but states he is ok at rest and with walking short distances Does have CPAP to wear at night but hasn't been wearing it - going to start using it Vidoe capsule this at [facility] Continues to have large mass on right elbow - has been following with ortho and had 6ml fluid removed but plan is to have MRI Physical Exam: Physical Exam Constitutional: General: He is not in acute distress. Appearance: He is ill-appearing. Cardiovascular: Rate and Rhythm: Normal rate and regular rhythm. Pulses: Normal pulses. Heart sounds: Normal heart sounds. Pulmonary: Effort: Pulmonary effort is normal. Breath sounds: Normal breath sounds. Abdominal: Palpations: Abdomen is soft. Musculoskeletal: Right lower leg: Edema (+1) present. Left lower leg: Edema (trace) present. Skin: General: Skin is warm and dry. Neurological: Mental Status: He is alert and oriented to person, place, and time. Review of Systems: Review of Systems Constitutional: Negative. Eyes: Negative. Respiratory: Positive for shortness of breath (RODRIGUEZ). Cardiovascular: Positive for leg swelling. Gastrointestinal: Negative. Genitourinary: Negative. Musculoskeletal: Mass of right elbow Skin: Negative. Psychiatric/Behavioral: Negative. Care Plan Goal Progress: Orders Placed: Plan Remote Patient Monitoring Referral Remote Patient Monitoring Referral Medications Given: Care Gaps: Care Gaps Care gaps closed this contact: Education;Plan of Care (POC) (02/20/24837) Type of education: Clinical/disease (02/20/24837) Type of plan of care (POC) care gap: Adjustment of plan of care (POC) and/or Integrated Care Plan (ICP);Education and review of exacerbation plan (02/20/24837) documented in this encounter Plan of Treatment Upcoming Encounters Date Type Department Care Team (Late st Contact Info) Description 02/21/2024 9:50 AM EST Anticoagulation Pharmacy, Her[facility]erto Durbin [address] [facility] [place] [phone] [facility] [address] [facility] [address] 03/07/2024 9:00 AM EST [facility] [address] [place] [address] Cuong Ibrahim PA-C [address] [place] [address] 03/18/2024 4:00 PM EST [facility] [address] [place] [address] Augustina Orellana RN [address] [facility] [place] [address] 09/17/2024 10:15 AM EDT Office Visit Urology, [facility] [address] [place] [address] Zeus Davidson MD [address] [place] [address] Scheduled Referrals Name Type Priority Associated Diagnoses Orde r Schedule REMOTE PATIENT MONITORING REFERRAL Referral Within 3 days (urgent) Chronic diastolic congestive heart failure, NYHA class 3 (HCC) Ordered: 02/14/2024 REMOTE PATIENT MONITORING REFERRAL Referral Within 10 days (routine) Chronic diastolic congestive heart failure, NYHA class 3 (HCC) Ordered: 02/15/2024 Health Maintenance Due Date Last Done Comments Adult Wellness Visit 06/01/2003 Albumin/Creatinine Ratio 12/21/2022 022, 10/11/2019, 05/22/2018 COVID-19 Vaccine ( season) 2023 04/17/2022, 02/06/2021, 05/29/2020, Additional history exists CKD PHOS USE SMARTSET 83494 12/30/202307/2022, 12/21/2021, 09/12/2018, Additional history exists Depression Screening 12/27/2024 12/28/2023 Zoster Vaccines (2 of 2) 12/27/2024 10/17/2017, 09/26 Postponed from 12/12/2017 (Patient Declined After Education) CKD HGB USE SMARTSET 40066 02/04/202502/04, 01/23/2024, 12/28/2023, Additional history exists DTap/Tdap [...] this encounter Medical Devices Implanted Type Area Employment And Claims Aide Device Identifier Shelf Expiration Date Model / Serial / Lot Baseplate #6 Tritanium - [id number] Implanted:Qty: 1 on 10/22/2019 by Sammy Higgins, at OR [facility] Left: Knee LSISET : ORTHOPAEDICS 07/23/2024 5536-B-600 / / [id number] Knee Triathlon Bead No Cuong L 6 - [id number] Implanted:Qty: 1 on 10/22/2019 by Sammy Higgins, DO at OR [facility] Left: Knee LISSET : ORTHOPAEDICS 07/09/2024 5517-F-601 / / [id number] Patella Symmetric S33mm 9mm - [id number] Implanted:Qty: 1 on 10/22/2019 by Sammy Higgins, DO at OR [facility] Left: Knee LISSET : ORTHOPAEDICS 10/29/2023 5556-L-339 / / [id number] Triathlon X3 Tibial Bearing Insert Cs Ramirez 6 Typ Cs Thkns 10mm Implanted:Qty: 1 on 10/22/2019 by Sammy Higgins, DO at OR [facility] Left: Knee 01/07/2024 5531-G-610 -E / / [id number] documented as of this encounter Visit Diagnoses Diagnosis Chronic diastolic congestive heart failure, NYHA class 3 (HCC)- Primary Chronic diastolic heart failure documented in this encounter Advance Directives Documents on File Type Date Recorded Patient Siebel Solution Architect Expl anation Advance Directives and Livin g Will 05/25/2017 LIVING WILL Power of Gold And Silver Assayer 05/25/2017 POWER OF A TTORNEY * Full [...] and were consensually agreed upon. Care Teams Vmware Systems Administrator Relationship Specialty Start Date End Date Heron Hutchinson MD [address] [facility] [place] [phone] PCP - General 03/28/1997 documented as of this encounter
--- OUTSIDE RECORDS SUMMARY | 2024-03-08 10:07 | External Medical Summary | Summary of Care ---
Author Name Unknown Organization [facility] Address [address] [place] [place] [place] [address] Phone [phone] Care Team Providers Care Agricultural Equipment Design Engineer Name Role Phone Heron Hutchinson MD Primary Care Provider [phone] Reason for Visit * Reason Onset Date Comments Order Request 02/07/2024 Encounter Details Date Type Department Care Team (Late st Contact Info) Description 02/07/2024 Telephone Orthopaedics [facility] [address] [facility] [place] [address] Irineo Richards MD [address] [place] [address] Order Request Allergies No known active allergiesdocumented as of this encounter (statuses as of 02/21/2024) Medications Cholecalciferol (VITAMIN D3) 1000 units CAPSIndications [...] as of this encounter (statuses as of 02/21/2024) Active Problems Problem Noted Date Diagnosed Date [...] 3 04/01/2019 Atherosclerotic heart diseas e of [place] coronary artery without angina pectoris 04/01/2019 Secondary [...] Plus set at 12 cwp AHP termite renewal inspector current use of 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 Overview (12/26/2016): ICD-10 update of inactive term documented as of this encounter (statuses as of 02/21/2024) Resolved Problems Problem Noted Date Diagnosed Date [...] URI with cough 08/15/2014 018 ORBIT-[employer] Research Other*[id number] 07/12/2010 07/12/2013 Overview (07/12/2010): PROJECT: #[id number], SPONSOR: Owen, PI: Ezio Johnson MD SUMMARY: [...] encounter can be closed. CONTACT: Lu Neely, Senior Graphic Designer Chronic rhinitis 01/18/2010 08/15/2014 ADVANCE DIRECTIVE INFORMATION [...] as of this encounter (statuses as of 02/21/2024) Immunizations Name Administration Dates Next Due COVID-19 [...] CAN MOVE ON WITH THE TRIAGING/SCHEDULING PROCESS. NATALI * Telephone Encounter - Belkys Morris OSA [...] Description 02/21/2024 9:50 AM EST [facility] [address] [facility] [place] [phone] [facility] [address] [facility] [address] 03/07/2024 9:00 AM EST [facility] [place], [facility] [address] [place] [address] Cuong Ibrahim PA-C [address] [place] [address] 03/18/2024 4:00 PM EST [facility] [place], [facility] [address] [place] [address] Augustina Orellana, RN [address] [place] [address] 09/17/2024 10:15 AM EDT Office Visit Urology, [facility] [address] [place] [phone] Zeus Davidson MD [address] [place] [phone] Health Maintenance Due Date Last Done Comments Adult Wellness Visit 06/01/2003 Albumin/Creatinine Ratio 12/21/2022 022, 10/11/2019, 05/22/2018 COVID-19 Vaccine ( season) 2023 04/17/2022, 02/06/2021, 05/29/2020, Additional history exists CKD PHOS USE SMARTSET 44334 12/30/202307/2022, 12/21/2021, 09/12/2018, Additional history exists Depression Screening 12/27/2024 12/28/2023 Zoster Vaccines (2 of 2) 12/27/2024 10/17/2017, 09/26 Postponed from 12/12/2017 (Patient Declined After Education) CKD HGB USE SMARTSET 43914 02/04/202502/04, 01/23/2024, 12/28/2023, Additional history exists DTap/Tdap [...] this encounter Medical Devices Implanted Type Area Motor Vehicle Light Assembler Device Identifier Shelf Expiration Date Model / Serial / Lot Baseplate #6 Tritanium - [id number] Implanted:Qty: 1 on 10/22/2019 by Sammy Higgins, DO at OR [facility] Left: Knee LISSET : ORTHOPAEDICS 07/23/2024 5536-B-600 / / [id number] Knee Triathlon Bead No Cuong L 6 - [id number] Implanted:Qty: 1 on 10/22/2019 by Sammy Higgins, DO at OR [facility] Left: Knee LISSET : ORTHOPAEDICS 07/09/2024 5517-F-601 / / [id number] Patella Symmetric S33mm 9mm - [id number] Implanted:Qty: 1 on 10/22/2019 by Sammy Higgins, DO at OR [facility] Left: Knee LISSET : ORTHOPAEDICS 10/29/2023 5556-L-339 / / [id number] Triathlon X3 Tibial Bearing Insert Cs Ramirez 6 Typ Cs Thkns 10mm Implanted:Qty: 1 on 10/22/2019 by Sammy Higgins, DO at OR [facility] Left: Knee 01/07/2024 5531-G-610 -E / / [id number] documented as of this encounter Advance Directives Documents on File Type Date Recorded Patient Stone Cutter Expl anation Advance Directives and Livin g Will 05/25/2017 LIVING WILL Power of Correctional Officer Sergeant 05/25/2017 POWER OF A TTORNEY * Full [...] and were consensually agreed upon. Care Teams Agricultural Equipment Design Engineer Relationship Specialty Start Date End Date Heron Hutchinson MD [address] [place] [address] PCP - General 03/28/1997 documented as of this encounter
--- OUTSIDE RECORDS SUMMARY | 2024-03-08 10:07 | External Medical Summary | Summary of Care ---
Author Name Unknown Organization [facility] Address [address] [place] [address] Phone [phone] Care Team Providers Care Charge Manager Name Role Phone Heron Hutchinson MD Primary Care Provider [phone] Reason for Visit * Reason Comments Dosage Adjustment In Person (Anticoag Cl inic) Encounter Details Date Type Department Care Team (Latest Contact Info) Description 02/21/2024 9:50 AM EST Anticoagulation Pharmacy, [facility] [address] [place] [phone] [place], [facility] [address] [place] [address] Anticoagulation management encounter*; Chronic atrial fibrillation (HCC); S/P TAVR (transcatheter aortic valve replacement) Allergies No known active allergiesdocumented as of this encounter (statuses as of 02/21/2024) Medications Cholecalciferol (VITAMIN D3) 1000 units CAPSIndications: [...] 3 04/01/2019 Atherosclerotic heart diseas e of [place] coronary artery without angina pectoris 04/01/2019 Secondary [...] URI with cough 08/15/2014 018 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 CONTACT: Lu Neely, Physiotherapy Aide Chronic rhinitis 01/18/2010 08/15/2014 ADVANCE DIRECTIVE INFORMATION [...] this encounter Progress Notes * Taty Marte, [facility] - 02/21/2024 10:03 AM EST Images from the original note were not included. Medication Therapy Disease Management - Anticoagulation Patient: Macario Oliver | : 1935 Subjective Patient-Reported Symptoms: Patient Findings Negatives: Signs/symptoms of thrombosis, Signs/symptoms of bleeding, Change in health, Change in alcohol use, Change in activity, Upcoming invasive procedure, Missed doses, Extra doses, Change in medications, Change in diet/appetite, Bruising Objective Current Warfarin Dose As of 02/21/2024 Warfarin maintenance plan: 5 mg (5 mg x 1) every Clemencia; 2.5 mg (5 mg x 0.5) all other days INR Result As of 02/21/2024 INR goal: 1.5-2.0 INR used for dosin.0 (02/21/2024) Assessment & Plan Warfarin Plan As of 02/21/2024 Full warfarin instructions: 02/20: Hold; Otherwise 2.5 mg every day Next INR check: 03/06/2024 Repeat PT/INR in 2 week(s) Weekly dose: decreased Additional Dosing Information: I spent a total of 10-19 minutes (exact time 10 mins) on the date of service in preparation, delivery, and documentation of the care provided to Macario Oliver excluding any time spent in the performance of separately billed services or time spent by another provider/QHP. Taty Marte [facility] Clinical Pharmacist 02/21/2024, 10:04 AM documented in this encounter Plan of Treatment Upcoming Encounters Date Type Department Care Team (Late st Contact Info) Description 02/21/2024 10:30 AM EST [facility], [place] [facility] [address] [facility] [place] [phone] Arrived 03/05/2024 9:20 AM EST [facility]tico[facility] Pharmacy, [place] [facility] [address] [facility] [place] [address] [address]iberto [address] [address] 03/07/2024 9:00 AM EST [facility] [address] [place] [address] Cuong Ibrahim PA-C [address] [place] [address] 03/18/2024 4:00 PM EST [facility] [address] [place] [address] Augustina Orellana, RN [address] [place] [address] 09/17/2024 10:15 AM EDT Office Visit Urology, [facility] [address] [place] [address] Zeus Davidson MD [address] [place] [address] [phone] (work) Health Maintenance Due Date Last Done Comments Adult Wellness Visit 06/01/2003 Albumin/Creatinine Ratio 12/21/2022 022, 10/11/2019, 05/22/2018 COVID-19 Vaccine ( season) 2023 04/17/2022, 02/06/2021, 05/29/2020, Additional history exists CKD PHOS USE SMARTSET 90618 12/30/202307/2022, 12/21/2021, 09/12/2018, Additional history exists Depression Screening 12/27/2024 12/28/2023 Zoster Vaccines (2 of 2) 12/27/2024 10/17/2017, 09/26 Postponed from 12/12/2017 (Patient Declined After Education) CKD HGB USE SMARTSET 66444 02/04/202502/04, 01/23/2024, 12/28/2023, Additional history exists DTap/Tdap [...] this encounter Medical Devices Implanted Type Area Garment Presser Device Identifier Shelf Expiration Date Model / Serial / Lot Baseplate #6 Tritanium - [id number] Implanted:Qty: 1 on 10/22/2019 by Sammy Higgins, at OR [facility] Left: Knee LISSET : ORTHOPAEDICS 07/23/2024 5536-B-600 / / [id number] Knee Triathlon Bead No Cuong L 6 - [id number] Implanted:Qty: 1 on 10/22/2019 by Sammy Higgins, DO at OR [facility] Left: Knee LISSET : ORTHOPAEDICS 07/09/2024 5517-F-601 / / [id number] Patella Symmetric S33mm 9mm - [id number] Implanted:Qty: 1 on 10/22/2019 by Sammy Higgins, DO at OR [facility] Left: Knee LISSET : ORTHOPAEDICS 10/29/2023 5556-L-339 / / [id number] Triathlon X3 Tibial Bearing Insert Cs Ramirez 6 Typ Cs Thkns 10mm Implanted:Qty: 1 on 10/22/2019 by Sammy Higgins, DO at OR [facility] Left: Knee 01/07/2024 5531-G-610 -E / / [id number] documented as of this encounter Procedures Procedure Name Priority Date/Time Associated Diagnosis Comments INR FINGERSTICK, POINT OF CARE STAT 02/21/2024 10:07 AM EST Chronic atrial fibrillation (HCC) S/P TAVR (transcatheter aortic valve replacement) Anticoagulation management encounter documented in this encounter Results * INR FINGERSTICK, POINT OF CARE (02/21/2024 10:07 AM EST) Fingerstick INR 3.0 INR 10:09 AM EST LABORATORY [facility] 56-01 Blood 02/21/2024 10:0 7 AM EST 02/21/2024 10:09 AM EST [facility] LABORATORY [facility] - 02/21/2024 10:09 AM EST Therapeutic ranges for non-operative patients: Prophylaxsis/treatment of DVT: (Range:2.0-3.0) Treatment of pulmonary embolism:(Range:2.0-3.0) Prevention of systemic embolism from: -tissue heart valves -acute myocardial infarction -valvular heart disease -atrial fibrillation (Range: 2.0-3.0) Mechanical prosthetic valves: (Range: 2.5-3.5) us Taty Marte [facility] LAB POINT OF CARE TEST DOCKED DEVICE UNSOLICITED RESULTS Final Result LABORATORY [facility] [address] [place] [address] [facility] [address] [facility] [place] [address], [facility] documented in this encounter Visit Diagnoses Diagnosis Anticoagulation management encounter- Primary Encounter for therapeutic drug monitoring Chronic atrial fibrillation (HCC) Atrial fibrillation S/P TAVR (transcatheter aortic valve replacement) Heart valve replaced by other means documented in this encounter Advance Directives Documents on File Type Date Recorded Patient Lending Consultant Expl anation Advance Directives and Livin g Will 05/25/2017 LIVING WILL Power of Word Processor Operator 05/25/2017 POWER OF A TTORNEY * [...] and were consensually agreed upon. Care Teams Charge Manager Relationship Specialty Start Date End Date Heron Hutchinson MD [address] [place] [address] PCP - General 03/28/1997 documented as of this encounter"
--- OUTSIDE RECORDS SUMMARY | 2024-03-08 10:07 | External Medical Summary | Summary of Care ---
Author Name Unknown Organization [facility] Address [address] [place] [address] Phone [phone] Care Team Providers Care Brake Linings Coater Name Role Phone Heron Hutchinson MD Primary Care Provider [phone] Reason for Visit * Reason Onset Date Comments Order Request 02/07/2024 Encounter Details Date Type Department Care Team (Late st Contact Info) Description 02/07/2024 Telephone Orthopaedics [facility] [address] [facility] [place] [address] Irineo Richards MD [address] [place] [id number] Order Request Allergies No known active allergiesdocumented as of this encounter (statuses as of 02/16/2024) Medications Cholecalciferol (VITAMIN D3) 1000 units CAPSIndications [...] as of this encounter (statuses as of 02/16/2024) Active Problems Problem Noted Date Diagnosed Date [...] 04/01/2019 Atherosclerotic heart diseas e of [place] coronary artery without angina pectoris 04/01/2019 Secondary [...] BIPAP Plus set at 12 cwp AHP long term current use of 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 Overview (12/26/2016): ICD-10 update of inactive term documented as of this encounter (statuses as of 02/16/2024) Resolved Problems Problem Noted Date Diagnosed Date [...] URI with cough 08/15/2014 018 [employer] Other*[id number] 07/12/2010 07/12/2013 Overview (07/12/2010): PROJECT: #[id number], SPONSOR: Owen, PI: Ezio Johnson MD SUMMARY: [...] encounter can be closed. CONTACT: Lu Neely, Home Economics Extension Worker Chronic rhinitis 01/18/2010 08/15/2014 ADVANCE DIRECTIVE INFORMATION [...] as of this encounter (statuses as of 02/16/2024) Immunizations Name Administration Dates Next Due COVID-19 [...] Description 02/21/2024 9:50 AM EST Anticoagulation Pharmacy, [place] [address] [place] [address] [facility] [address] [place] [address] 03/07/2024 9:00 AM EST [facility] [address] [place] [address] Cuong Ibrahim PA-C [address] [place] [address] 03/18/2024 4:00 PM EST [facility] Visit [facility] [address] [place] [address] Augustina Orellana, RN [address] [place] [address] 09/17/2024 10:15 AM EDT Office Visit Urology, [facility] [address] [facility] [place] [address] Zeus Davidson MD [address] [place] [address] Health Maintenance Due Date Last Done Comments Adult Wellness Visit 06/01/2003 Albumin/Creatinine Ratio 12/21/2022 022, 10/11/2019, 05/22/2018 COVID-19 Vaccine ( season) 2023 04/17/2022, 02/06/2021, 05/29/2020, Additional history exists CKD PHOS USE SMARTSET 83849 12/30/2023 1007/2022, 12/21/2021, 09/12/2018, Additional history exists Depression Screening 12/27/2024 12/28/2023 Zoster Vaccines (2 of 2) 12/27/2024 10/17/2017, 09/26 Postponed from 12/12/2017 (Patient Declined After Education) CKD HGB USE SMARTSET 43725 02/04/202502/04, 01/23/2024, 12/28/2023, Additional history exists DTap/Tdap [...] this encounter Medical Devices Implanted Type Area Concession Stand Attendant Device Identifier Shelf Expiration Date Model / Serial / Lot Baseplate #6 Tritanium - [id number] Implanted:Qty: 1 on 10/22/2019 by Sammy Higgins, at OR [facility] Left: Knee LISSET : ORTHOPAEDICS 07/23/2024 5536-B-600 / / [id number] Knee Triathlon Bead No Cuong L 6 - [id number] Implanted:Qty: 1 on 10/22/2019 by Sammy Higgins DO at OR [facility] Left: Knee LISSET : ORTHOPAEDICS 07/09/2024 5517-F-601 / / [id number] Patella Symmetric S33mm 9mm - [id number] Implanted:Qty: 1 on 10/22/2019 by Sammy Higgins DO at OR [facility] Left: Knee LISSET : ORTHOPAEDICS 10/29/2023 5556-L-339 / / [id number] Triathlon X3 Tibial Bearing Insert Cs Ramirez 6 Typ Cs Thkns 10mm Implanted:Qty: 1 on 10/22/2019 by Sammy Higgins DO at OR [facility] Left: Knee 01/07/2024 5531-G-610 -E / / [id number] documented as of this encounter Advance Directives Documents on File Type Date Recorded 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 Care Teams Brake Linings Coater Relationship Specialty Start Date End Date Heron Hutchinson MD [address] [place] [address] PCP - General 03/28/1997 documented as of this encounter
--- OUTSIDE RECORDS SUMMARY | 2024-03-08 10:07 | External Medical Summary | Summary of Care ---
Author Name Unknown Organization [facility] Address [address] [place] [address] Phone [phone] Care Team Providers Care Engraver Pantograph Name Role Phone Heron Hutchinson MD Primary Care Provider [phone] Reason for Referral * Evaluate & Treat - Unlimited Visits (Within 30 days (routine)) - Authorized Specialty Diagnoses / Procedures Referred By Charmaine randolph Referred To Contact Orthopaedic Surgery / Orthopedics Diagnoses Elbow mass, right Heron Hutchinson MD [address] [place] [address] Phone: tel: fax: Referral ID Status Reason Start Date Expiration Date Visits Requested Visits Authorized [id number] Authorized Specialty Services Required 02/02/[phone] Question Answer Referral Priority Within 30 days (routine) Where should this appointment be scheduled? [facility] What body part is the patient being seen for? Arm/Elbow - right elbow What condition is the patient being seen for? Tumor - all ages Comments Abnormal ultrasound - mass right elbow Reason for Visit * Reason Onset Date Comments [facility]: Maintenance 02/02/2024 Encounter Details Date Type Department Care Team (Late st Contact Info) Description 02/02/2024 Telephone [facility] [address] [place] [address] Augustina Orellana RN [address] [place] [address] [facility]: Maintenance Allergies No known [...] DAILY 90 Tablet 3 023 2023 Discontinued LORazepam 0.5 MG Oral Tablet (Ativan)Indicat ions:Anxiety [...] 3 04/01/2019 Atherosclerotic heart diseas e of [place] coronary artery without angina pectoris 04/01/2019 Secondary [...] (08/09/2013): BIPAP Plus set at 12 cwp 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 CONTACT: Lu Neely, Roentgenology Teacher Chronic rhinitis 01/18/2010 08/15/2014 ADVANCE DIRECTIVE INFORMATION [...] Telephone Encounter - Heron Hutchinson MD - 02/02/2024 2:46 PM EST He has pacemaker. MRI likely nonviable option. Will refer to orthopedics surgery for their eval * Telephone Encounter - Augustina Orellana RN - 02/02/2024 2:17 PM EST Pt seen for enrollment to [facility] He does have a hospital d/c appt next week but with everything that is going on, and pt would like to know what is next step for lump on arm? He had ultrasound done and did receive Lorazepam for MRI but I don't see MRI scheduled or ordered. Please advise. Thank you documented in this encounter Plan of Treatment Upcoming Encounters Date Type Department Care Team (Late st Contact Info) Description 02/21/2024 9:50 AM EST Antico[facility] Pharmacy, [place] [address] [facility] [address] [place] [address] [address] 03/07/2024 9:00 AM EST [facility] [address] [facility] [place] [address] Cuong Ibrahim PA-C [address] [place] [address] 03/18/2024 4:00 PM EST [facility] Visit [facility] [address] [place] [address] Augustina Orellana, RN [address] [place] [address] 09/17/2024 10:15 AM EDT Office Visit Urology, [facility] [address] [place] [address] Zeus Davidson MD [address] [place] [address] Scheduled Referrals Name Type Priority Associated Diagnoses Order Schedule ORTHOPAEDICS REFERRAL OP Referral Within 30 days (routine) Elbow mass, right Ordered: 02/02/2024 Health Maintenance Due Date Last Done Comments Adult Wellness Visit 06/01/2003 Albumin/Creatinine Ratio 12/21/20222 022, 10/11/2019, 05/22/2018 COVID-19 Vaccine ( season) 2023 04/17/2022, 02/06/2021, 05/29/2020, Additional history exists CKD PHOS USE SMARTSET 88015 12/30/202307/2022, 12/21/2021, 09/12/2018, Additional history exists Depression Screening 12/27/2024 12/28/2023 Zoster Vaccines (2 of 2) 12/27/2024 10/17/2017, 09/26 Postponed from 12/12/2017 (Patient Declined After Education) CKD HGB USE SMARTSET 05985 02/04/202502/04, 01/23/2024, 12/28/2023, Additional history exists DTap/Tdap [...] this encounter Medical Devices Implanted Type Area Solar Manufacturer'S Representative Device Identifier Shelf Expiration Date Model / Serial / Lot Baseplate #6 Tritanium - [id number] Implanted:Qty: 1 on 10/22/2019 by Sammy Higgins DO at OR [facility] Left: Knee LISSET : ORTHOPAEDICS 07/23/2024 5536-B-600 / / [id number] Knee Triathlon Bead No Cuong L 6 - [id number] Implanted:Qty: 1 on 10/22/2019 by Sammy Higgins DO at OR [facility] Left: Knee LISSET : ORTHOPAEDICS 07/09/2024 5517-F-601 / / [id number] Patella Symmetric S33mm 9mm - [id number] Implanted:Qty: 1 on 10/22/2019 by Sammy Higgins DO at OR [facility] Left: Knee LISSET : ORTHOPAEDICS 10/29/2023 5556-L-339 / / [id number] Triathlon X3 Tibial Bearing Insert Cs Ramirez 6 Typ Cs Thkns 10mm Implanted:Qty: 1 on 10/22/2019 by Sammy Higgins DO at OR [facility] Left: Knee 01/07/2024 5531-G-610 -E / / [id number] documented as of this encounter Visit Diagnoses Diagnosis Elbow mass, right- Primary documented in this encounter Advance Directives Documents on File Type Date Recorded Patient Display Designer Outside Expl anation Advance Directives and Zac g Will 05/25/2017 LIVING WILL Power of Manager Operating 05/25/2017 POWER OF A TTORNEY * Full [...] and were consensually agreed upon. Care Teams Engraver Pantograph Relationship Specialty Start Date End Date Heron Hutchinson MD [address] [place] [address] PCP - General 03/28/1997 documented as of this encounter
--- OUTSIDE RECORDS SUMMARY | 2024-03-08 10:08 | External Medical Summary | Summary of Care ---
Author Name Unknown Organization [facility] Address [address] [place] [address] Phone [phone] Care Team Providers Care Quality Cloth Tester Name Role Phone Heron Hutchinson MD Primary Care Provider [phone] Reason for Visit * Reason Onset Date Comments Information 02/15/2024 Encounter Details Date Type Department Care Team ([facility] Contact Info) Description 02/15/2024 Telephone [facility] [place] [address] [place] [address] Megha Salgado, CEE [address] [place] [address] Information (//) Allergies No known [...] 3 04/01/2019 Atherosclerotic heart diseas e of [place] coronary artery without angina pectoris 04/01/2019 [...] [facility] current use of 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 Overview (12/26/2016): [...] URI with cough 08/15/2014 018 ORBIT-[employer] Research Other*[id number] 07/12/2010 07/12/2013 Overview (07/12/2010): PROJECT: #[id number], SPONSOR: Owen, PI: Ezio Johnson MD SUMMARY: [...] encounter can be closed. CONTACT: Lu Neely, Surveillance Dual Rate Officer Chronic rhinitis 01/18/2010 08/15/2014 ADVANCE DIRECTIVE [...] Entry Date Author No 10/22/2019 2:46 PM Doomnique Casillas RN documented in this encounter Miscellaneous [...] Description 02/21/2024 9:50 AM EST [facility], [place] [address] [facility] [address] [facility] [address] [facility] [address] 03/07/2024 9:00 AM EST [facility] [address] [place] [address] Cuong Ibrahim PA-C [address] [place] [address] 03/18/2024 4:00 PM EST [facility] Visit [facility] [address] [place] [address] Augustina Orellana, RN [address] [facility] [place] [address] 09/17/2024 10:15 AM EDT Office Visit Urology, [facility] [address] [place] [address] Zeus Davidson MD [address] [place] [address] Health Maintenance Due Date Last Done Comments Adult Wellness Visit 06/01/2003 Albumin/Creatinine Ratio 12/21/2022 022, 10/11/2019, 05/22/2018 COVID-19 Vaccine ( season) 2023 04/17/2022, 02/06/2021, 05/29/2020, Additional history exists CKD PHOS USE SMARTSET 20853 12/30/202307/2023, 12/21/2021, 09/12/2018, Additional history exists Depression Screening 12/27/2024 12/28/2023 Zoster Vaccines (2 of 2) 12/27/2024 10/17/2017, 09/26 Postponed from 12/12/2017 (Patient Declined After Education) CKD HGB USE SMARTSET 46329 02/04/202502/04, 01/23/2024, 12/28/2023, Additional history exists DTap/Tdap [...] this encounter Medical Devices Implanted Type Area Statistical Geneticist Device Identifier Shelf Expiration Date Model / Serial / Lot Baseplate #6 Tritanium - [id number] Implanted:Qty: 1 on 10/22/2019 by Sammy Higgins, DO at OR [facility] Left: Knee LISSET : ORTHOPAEDICS 07/23/2024 5536-B-600 / / [id number] Knee Triathlon Bead No Cuong L 6 - [id number] Implanted:Qty: 1 on 10/22/2019 by Sammy Higgins, DO at OR [facility] Left: Knee LISSET : ORTHOPAEDICS 07/09/2024 5517-F-601 / / [id number] Patella Symmetric S33mm 9mm - [id number] Implanted:Qty: 1 on 10/22/2019 by Sammy Higgins, at OR [facility] Left: Knee LISSET : ORTHOPAEDICS 10/29/2023 5556-L-339 / / [id number] Triathlon X3 Tibial Bearing Insert Cs Ramirez 6 Typ Cs Thkns 10mm Implanted:Qty: 1 on 10/22/2019 by Sammy Higgins DO at OR [facility] Left: Knee 01/07/2024 5531-G-610 -E / / [id number] documented as of this encounter Advance Directives Documents on File Type Date Recorded Patient Paediatric Physiotherapist Expl anation Advance Directives and Livin g Will 05/25/2017 LIVING WILL Power of Professional System Administrator 05/25/2017 POWER OF A TTORNEY * Full [...] and were consensually agreed upon. Care Teams Quality Cloth Tester Relationship Specialty Start Date End Date Heron Hutchinson MD [address] [place] [address] PCP - General 03/28/1997 documented as of this encounter
--- NOTE | 2024-03-08 10:31 | Cardiology Progress Note ---
Date of Service March 08, 2024 Assessment & Plan (1) Acute on chronic heart failure with preserved ejection fraction: (2) Leukocytosis: (3) Anemia: (4) Elbow mass: Plan 03/07/24: Patient admitted with multifactorial SOB. Evidence of volume overload on exam and left pleural effusion, possible left lung consolidation? Continue furosemide 40 mg IV BID. Monitor I+O's. Significant diuresis/output since admission per nursing staff. Supplement electrolytes. Elevated WBC on arrival. Possible consolidation in left lung with pleural effusion? Consider repeat imaging and initiation of antibiotics? Blood cultures pending Persistent anemia since last admission. Negative colonoscopy and EGG. Treated with iron infusions. Hbg 7.9 on arrival, trending down to 7.4. He received 1 unit PRBC's since admission. Hbg this morning at 8.2. INR 4.0 on admission. Coumadin held. INR 3.7 this morning. continue to hold. Elbow mass - ? Possible malignancy. Ortho consult ordered. 03/08/24: Patient with improved respiratory status/volume status. Aggressive diuresis over the last few days. - 3 L since admission. Weight down. Recommend transitioning to oral furosemide 40 mg daily this morning (home dose). Add spironolactone 12.5 mg daily to aid with hypokalemia and volume status. Supplemental potassium also ordered this morning. Repeat K after lunch. INR 3.0 this morning. hold today and likely resume coumadin tomorrow. Hbg stable at 8.2 this morning. Monitor as outpatient and follow up with hematology. Also needs follow up with ortho oncology for elbow mass. Stable cardiac symptoms. Will sign off. Please contact marketing rotation associate provider with additional questions or concerns. Continue all other home meds on discharge. Case discussed with Dr. Carlson I spent a total of 30 minutes on the date of service in preparation, delivery, and documentation of the care provided to this patient, excluding any time spent in the performance of separately billed services. Lesli Bonilla PA-C Department of Cardiology, [facility] This chart was completed in part utilizing Speech Voice Recognition Software. Grammatical errors, random word insertions, pronoun errors, and incomplete sentences are an occasional consequence of this system due to software limitati ons, ambient noise, and hardware issues. Any formal questions or concerns about the content, text, or information contained within the body of this dictation should be directly addressed to the provider for clarification. Admission and Anticipated Discharge Date Admission Date: March 06, 2024 Supervising Physician Co-Signing Physician Notes Attending attestation: Case reviewed with the advanced practitioner. I have personally performed a history and physical examination on the patient. I have reviewed the advanced practitioner's documentation on the date of service referenced in note, and I agree with, and take responsibility for the plan of care. I spent a total of 20 minutes coordinating, documenting, and providing care for this patient excluding time spent in the performance of separately billed services or time spent by another provider. Ron Carlson DO Subjective Patient resting in bed. Nurse reports he was agitated and confused overnight. Now calm and peaceful. No chest pain or SOB. Edema improving. He voices no complaints. Wants to go home. Review of Systems Review of Systems: All systems reviewed & are unremarkable except as noted in HPI & below Physical Exam Constitutional: WD/WN, vitals as above no acute distress Neck: normal visual inspection Respiratory: normal respiratory effort; no labored breathing Auscultation: + diminished lung sounds; no crackles and no rales Cardiovascular: Rate/Rhythm: + irregularly irregular Heart Sounds: + murmur (II/ systolic murmur) Extremities: + edema (1+ LE edema) Gastrointestinal (Abdomen): normal bowel sounds, soft, nontender, no hepatosplenomegaly Musculoskeletal: no cyanosis or clubbing, extremities motor strength 5/5 Neurologic: PERRL, EOMI, accommodation nl, no face palsy, no dysarthria Results & Data Vital Signs (Past 12 Hours) Vital Signs Temp Pulse Resp BP Pulse Ox O2 Del Method O2 Flow Rate 03/08/24 08:10 36.5 C 75 18 114/65 90 Nasal Cannula 2 03/08/24 06:27 77 112/90 03/08/24 02:51 36.5 C 62 19 132/66 92 Nasal Cannula 2.0 03/07/24 23:10 36.5 C 118 H 20 116/49 L 98 Nasal Cannula 2.0 Laboratory Results Coagulation 03/08/24 Range/Units 06:37 PT 29.7 H (9.0-12.0) Seconds CBC 03/08/24 Range/Units 06:37 WBC 13.02 H (4.8-10.8) K/ul RBC 3.38 L (4.70-6.10) M/uL Hgb 8.2 L (14.0-18.0) g/dl Hct 26.0 L (42.0-52.0) % Plt Count 382 (130-400) K/uL Neut # (Auto) 10.73 H (1.40-6.50) K/uL Lymph # (Auto) 1.06 L (1.20-3.40) K/uL Morton # (Auto) 1.01 H (0.11-0.59) K/uL Eos # (Auto) 0.10 (0.00-0.50) K/uL Baso # (Auto) 0.02 (0.00-0.20) K/uL Comprehensive Metabolic Panel 03/08/24 Range/Units 06:37 Sodium 137 (136-145) mmol/L Potassium 3.2 L (3.5-5.1) mmol/L Chloride 97 L (98-107) mmol/L Carbon Dioxide 31 (21-32) mmol/L BUN 19 (6-23) mg/dl Creatinine 0.91 (0.6-1.4) mg/dl Glucose 90 (70-99(Fasting)) mg/dl Calcium 8.4 L (8.6-10.3) mg/dl Intake and Output 03/07/24 03/08/24 03/08/24 22:59 06:59 14:59 Output Total 2800 / 3206 405 / 3206 Balance -2800 / -2506 -405 / -2506 Output: Urine 305 / 305 Urine Amount (Catheter) 2800 / 2900 100 / 2900 External 2800 / 2900 100 / 2900 Other: # Unmeasured Voids 1 1 Weight 77.8 kg Weight Measurement Method Standing Scale Diagnostic Findings Telemetry reviewed: probable atrial fib, with ventricular pacing. Medications Administered Current Inpatient Medications Acetaminophen (Acetaminophen 500 Mg Tab) 500 mg PO Q6H PRN PRN Reason: fever/pain Stop: 04/06/24 09:35 Amlodipine Besylate (Amlodipine Besylate 5 Mg Tab) 2.5 mg PO QAM [facility] Stop: 04/06/24 08:59 Last Admin: 03/08/24 08:56 Dose: 2.5 mg Atorvastatin Calcium (Atorvastatin 20 Mg Tab) 20 mg PO DAILY [facility] Stop: 04/06/24 08:59 Last Admin: 12/13/24 08:55 Dose: 20 mg Furosemide (Furosemide 40 Mg Tab) 40 mg PO QAM [facility] Stop: 04/07/24 10:29 Isosorbide Dinitrate (Isosorbide Dinitrate 20 Mg Tab) 20 mg PO BID@0700,1200 [facility] Stop: 04/06/24 06:59 Last Admin: 03/08/24 06:28 Dose: 20 mg Metoprolol Succinate (Metoprolol Succ 25mg Ext Rel Tab) 25 mg PO DAILY [facility] Stop: 04/06/24 08:59 Last Admin: 03/08/24 08:55 Dose: 25 mg Pantoprazole Sodium (Pantoprazole 40 Mg Tab) 40 mg PO QAM [facility] Stop: 04/06/24 08:59 Last Admin: 03/08/24 08:56 Dose: 40 mg Potassium Chloride (Potassium Chloride Crtab 20 Meq Tabcr) 20 meq PO BID [facility] Stop: 04/06/24 08:59 Last Admin: 03/08/24 09:06 Dose: 20 meq Spironolactone (Spironolactone 12.5 Mg Tab) 12.5 mg PO DAILY [facility] Stop: 04/07/24 10:29 (2) Leukocytosis Leukocytosis type: unspecified Qualified Code(s): D72.829 - Elevated white blood cell count, unspecified (3) Anemia Anemia type: unspecified type Qualified Code(s): D64.9 - Anemia, unspecified
[2024-03-08] MEDS: POTASSIUM CHLORIDE CRTAB 20 MEQ TABCR PO STA (10:57)
[2024-03-08] MEDS: FUROSEMIDE 40 MG TAB PO SCH (11:38)
[2024-03-08] MEDS: SPIRONOLACTONE 12.5 MG TAB PO SCH (11:38)
--- NOTE | 2024-03-08 13:14 | Hospitalist Progress Note ---
Date of Service March 08, 2024 Assessment & Plan (1) Acute on chronic diastolic heart failure with preserved ejection fraction: (2) Symptomatic anemia: (3) Supratherapeutic INR: (4) Atrial fibrillation: (5) Elbow mass: (6) HTN (hypertension): (7) Dyslipidemia: (8) CKD (chronic kidney disease), stage III: (9) History of bioprosthetic transcatheter aortic valve implantation (KEILA): (10) Sleep apnea: (11) Prostate cancer: Plan Patient is 88-year-old male with PMH chronic atrial fibrillation anticoagulated on warfarin, history KEILA in 10/2018, symptomatic s/p pacemaker, chronic diastolic heart failure, HTN, dyslipidemia, CKD III, sleep apnea, prostate cancer, obesity presented to ER with c/o exertional SOB. Acute hypoxemic respiratory failure secondary to decompensated HF Supplemental O2 Diuretic Rx- patient was treated with IV diuretics with about 3 L of output. Transition to p.o. diuretics today Strict I/Os, daily weights, CHF education, fluid restriction Cardiology consulted, appreciate recs SSS status post PPM on Coumadin, INR supratherapeutic Hold Coumadin Acute on chronic anemia possibly dilutional given fluid retention FOBT done at the ER was negative Anemia panel if worsening/persistent Transfuse PRBC to maintain hemoglobin of at least 8 given history of PVD/symptomatic anemia Continue to monitor Right elbow mass possible malignancy as per CT Ortho consult, appreciate recs -recommending f/u with sumeet Valdez as scheduled or [place] provider Dr Draper, ortho oncologist. -family would like followup sooner Care being coordinated cirrhosis on prior imaging stable Outpatient GI consult for cirrhosis workup Recurrent metastatic prostate CA status post radiation status post androgen deprivation Rx on Lupron Prediabetes hemoglobin A1c of 5.04 December 2023 DVT prophylaxis. coumadin on hold, INR supratherapeutic currently DNR as per patient prior directives as per family. Dispo: PT/OT for further recs Admission and Anticipated Discharge Date Admission Date: March 06, 2024 Subjective patient was seen in the a.m. laying in bed Denied any shortness of breath, chest pain or palpitations later contacted via telephone and provided an update Family requesting a sooner appointment with the oncology team States it is very unclear whether or not they have follow-up scheduled with [facility] in March Review of Systems Review of Systems: All systems reviewed & are unremarkable except as noted in Subjective Physical Exam Physical Exam: General: Alert, orientedx1. No acute distress Psych: Appropriate mood and affect Neuro: No gross deficits HEENT: NC/AT CV: RRR, +murmur Resp: Breath sounds clear bilaterally, no increased effort of breathing Abdomen: Soft, nontender Extremities:right arm mass, edema in lower extremities bilaterally. Results & Data Results & Data Vital Signs (Past 12 Hours) Vital Signs Temp Pulse Resp BP Pulse Ox O2 Del Method O2 Flow Rate 03/08/24 11:48 36.9 C 78 18 135/69 96 Nasal Cannula 2 03/08/24 08:10 36.5 C 75 18 114/65 90 Nasal Cannula 2 03/08/24 06:27 77 112/90 03/08/24 02:51 36.5 C 62 19 132/66 92 Nasal Cannula 2.0 (6) HTN (hypertension) Hypertension type: primary hypertension Qualified Code(s): I10 - Essential (primary) hypertension
[2024-03-09 06:08] LABS: Basophils # (auto) 0.02 K/uL (0.00-0.20); Basophils % (auto) 0.1 %; Eosinophils # (auto) 0.11 K/uL (0.00-0.50); Eosinophils % (auto) 0.8 %; Hemoglobin 8.1 g/dl (14.0-18.0); Immature Granulocytes # (auto) 0.15 K/uL (0.01-0.20); Immature Granulocytes % (auto) 1.1 %; Lymphocytes # (auto) 1.01 K/uL (1.20-3.40); Lymphocytes % (auto) 7.2 %; Mean Corpuscular Hemoglobin 24.4 pg (25.0-34.0); Mean Corpuscular Hgb Conc 31.2 g/dL (32.0-36.0); Mean Corpuscular Volume 78.3 fL (80.0-100.0); Mean Platelet Volume 9.1 fL (9.4-12.4); Monocytes # (auto) 1.14 K/uL (0.11-0.59); Monocytes % (auto) 8.2 %; Neutrophils # (auto) 11.52 K/uL (1.40-6.50); Neutrophils % (auto) 82.6 %; Platelet Count 342 K/uL (130-400); RDW Coefficient of Variation 19.9 % (11.5-14.5); RDW Standard Deviation 56.6 fL (36.4-46.3); Red Blood Count 3.32 M/uL (4.70-6.10); White Blood Count 13.95 K/ul (4.8-10.8)
[2024-03-09 06:30] LABS: BUN Creatinine Ratio 22.6 (10-20); Calcium 8.5 mg/dl (8.6-10.3); Creatinine Clr Calc Pharmacy 54.9 ml/min; Magnesium 1.7 mg/dl (1.7-2.4); Phosphorus 3.5 mg/dl (2.5-4.9); Potassium 3.7 mmol/L (3.5-5.1)
[2024-03-09 06:37] LABS: Prothrombin Time 29.5 Seconds (9.0-12.0)
--- NOTE | 2024-03-09 10:27 | Hospitalist Progress Note ---
Date of Service March 09, 2024 Assessment & Plan (1) Acute on chronic diastolic heart failure with preserved ejection fraction: (2) Symptomatic anemia: (3) Supratherapeutic INR: (4) Atrial fibrillation: (5) Elbow mass: (6) HTN (hypertension): (7) Dyslipidemia: (8) CKD (chronic kidney disease), stage III: (9) History of bioprosthetic transcatheter aortic valve implantation (KEILA): (10) Sleep apnea: (11) Prostate cancer: Plan Patient is 88-year-old male with PMH chronic atrial fibrillation anticoagulated on warfarin, history KEILA in 10/2018, symptomatic s/p pacemaker, chronic diastolic heart failure, HTN, dyslipidemia, CKD III, sleep apnea, prostate cancer, obesity presented to ER with c/o exertional SOB. Acute hypoxemic respiratory failure secondary to decompensated HF Supplemental O2 Diuretic Rx- patient was treated with IV diuretics with about 3 L of output. Transition to p.o. diuretics today Strict I/Os, daily weights, CHF education, fluid restriction Cardiology consulted, appreciate recs SSS status post PPM on Coumadin, INR supratherapeutic Hold Coumadin Acute on chronic anemia possibly dilutional given fluid retention FOBT done at the ER was negative Anemia panel if worsening/persistent Transfuse PRBC to maintain hemoglobin of at least 8 given history of PVD/symptomatic anemia Continue to monitor Right elbow mass possible malignancy as per CT Ortho consult, appreciate recs -recommending f/u with [employer] Valdez as scheduled or [place] provider Dr Draper, ortho oncologist. -family would like followup sooner [facility] Oncology consulted, appreciate recs -biopsy by IR needed, order placed. Family agreeable cirrhosis on prior imaging stable Outpatient GI consult for cirrhosis workup Recurrent metastatic prostate CA status post radiation status post androgen deprivation Rx on Lupron Prediabetes hemoglobin A1c of 5.04 December 2023 DVT prophylaxis. coumadin on hold, INR supratherapeutic currently DNR as per patient prior directives as per family. Dispo: PT/OT for further recs Admission and Anticipated Discharge Date Admission Date: March 06, 2024 Subjective patient was seen in the a.m. sitting in a chair at bedside Anxious for discharge Later notified by nursing patient with increased oxygen requirement from 1 L to 3 L while laying down. Chest x-ray ordered which was unremarkable for acute or progressing pathology Recommendations from hematology oncology reviewed. Patient's and son updated with recommendation for biopsy of the mass. Discussion that this will likely take place on Monday. Agreeable. Review of Systems Review of Systems: All systems reviewed & are unremarkable except as noted in Subjective Physical Exam Physical Exam: General: Alert, orientedx1. No acute distress Psych: Appropriate mood and affect Neuro: No gross deficits HEENT: NC/AT CV: RRR, +murmur Resp: Breath sounds clear bilaterally, no increased effort of breathing Abdomen: Soft, nontender Extremities:right arm mass, edema in lower extremities bilaterally. Results & Data Results & Data Vital Signs (Past 12 Hours) Vital Signs Temp Pulse Pulse Resp BP Pulse Ox O2 Del Method 03/09/24 08:01 36.7 C 65 18 109/55 L 92 Nasal Cannula 03/09/24 06:05 112/67 03/09/24 03:14 36.6 C 76 18 118/74 91 Nasal Cannula 03/08/24 23:28 36.7 C 60 18 109/79 96 Nasal Cannula 03/08/24 23:15 96 Nasal Cannula 03/08/24 23:08 60 O2 Flow Rate 03/09/24 08:01 1 03/09/24 06:05 03/09/24 03:14 1.0 03/08/24 23:28 2.0 03/08/24 23:15 1 03/08/24 23:08 (6) HTN (hypertension) Hypertension type: primary hypertension Qualified Code(s): I10 - Essential (primary) hypertension
--- NOTE | 2024-03-09 13:41 | Oncology Consultation ---
Date of Consultation March 09, 2024 Assessment & Plan (1) Elbow mass: Recommend IR guided biopsy of this right elbow mass. In the absence of an oncological diagnosis cannot recommend any kind of treatment. IR guided biopsy can be performed. Orthopedic surgery already on board recommend consultation w ith orthopedic oncology. No other areas of biopsy based on CT of the chest abdomen pelvis Plan medical oncology will be following the patient and making appropriate recommendation once we have a biopsy result. History of Present Illness Reason for Consultation: Prostate cancer right elbow mass Attending Physician: Stephanie Cuenca MD History of Present Illness patient is a very pleasant 88-year-old man with a past history of prostate cancer, who was evaluated in the hospital by the oncology service for a right elbow mass, which was identified after a CT scan, was considered to be malignant. According to the patient the mass has been present for several years, there was an aspiration attempted however was unsuccessful. Rest of the CT scan including CT angiogram, abdominal and pelvis did not show any other distance evidence of malignancy. Medical oncology has been consulted to assist in management of this patient with malignant appearing right elbow mass. Allergies Allergy/AdvReac Type Severity Reaction Status Date / Time No Known Allergies Allergy Verified 01/26/24 14:50 Home Medications Medication Instructions Recorded Confirmed Type acetaminophen 325 mg tablet 325 mg PO Q6 PRN as directed 10/11/18 03/06/24 His tory cholecalciferol (vitamin D3) 25 1,000 unit PO QAM 10/11/18 03/06/24 History mcg (1,000 unit) tablet amlodipine 2.5 mg tablet 2.5 mg PO QAM 01/26/24 03/06/24 History aspirin 81 mg tablet,delayed 81 mg PO .ON HOLD 01/26/24 03/06/24 History release atorvastatin 20 mg tablet 20 mg PO DAILY 01/26/24 03/06/24 History isosorbide dinitrate 20 mg tablet 20 mg PO BID 01/26/24 03/06/24 History metoprolol succinate 25 mg 25 mg PO DAILY 01/26/24 03/06/24 History tablet,extended release 24 hr omeprazole 20 mg capsule,delayed 20 mg PO QAM 01/26/24 03/06/24 History release potassium chloride 20 mEq 20 meq PO QAM #30 tabs 01/31/24 03/06/24 Rx tablet,extended release(part/cryst) ferrous sulfate 325 mg (65 mg 325 mg PO QDB 03/06/24 03/06/24 History iron) tablet,delayed release furosemide 40 mg tablet 40 mg PO QAM 03/06/24 03/06/24 History warfarin 5 mg tablet 5 - 10 mg PO .ON HOLD SINCE 03/0503/06/24 03/06/24 History Patient History Medical History Encounter for pre-operative examination Weakness Anemia Social History Smoking Status: Never smoker Second Hand Exposure: No; Do You Dip or Chew Tobacco: No; Hx Alcohol Use: No Hx Substance Use: No Preferred Language: Tuvaluan Communication Ability: Effective Bank Compliance Officer Required: No Beliefs That Will Affect Care: None Current Living Situation: Spouse Feels Safe at Home: Yes Assistive Devices: None Review of Systems Review of Systems: All systems reviewed & are unremarkable except as noted in HPI & below Constitutional: as per Subjective / HPI Eyes: as per Subjective / HPI Ear, Nose, Mouth, Throat: as per Subjective / HPI Respiratory: as per Subjective / HPI Cardiovascular: as per Subjective / HPI Gastrointestinal: as per Subjective / HPI Genitourinary: + as per Subjective / HPI Musculoskeletal: as per Subjective / HPI Integumentary: as per Subjective / HPI Neurologic: as per Subjective / HPI Physical Exam Constitutional: WD/WN, vitals as above Eyes: PERRL, conjunctivae normal, anicteric sclerae ENMT: external ear and nose normal, oropharynx normal Neck: trachea midline, no thyromegaly Respiratory: normal respiratory effort, lungs clear to auscultation Cardiovascular: RRR, no murmur, no edema Gastrointestinal (Abdomen): normal bowel sounds, soft, nontender, no hepatosplenomegaly Musculoskeletal: no cyanosis or clubbing, extremities motor strength 5/5 Skin: no rashes, warm and dry Neurologic: patellar DTR's 2+ bilat, sensation intact Psychiatric: A+Ox3, euthymic affect Results & Data Vital Signs (Past 12 Hours) Vital Signs Temp Pulse Resp BP Pulse Ox O2 Del Method O2 Flow Rate 03/09/24 11:22 Nasal Cannula 1 03/09/24 10:52 36.6 C 61 19 122/66 97 Nasal Cannula 1 03/09/24 08:01 36.7 C 65 18 109/55 L 92 Nasal Cannula 1 03/09/24 06:05 112/67 03/09/24 03:14 36.6 C 76 18 118/74 91 Nasal Cannula 1.0
--- NOTE | 2024-03-09 14:39 | XRay Report ---
EXAM: Radiograph of the Chest 1 View INDICATION: Shortness of breath. TECHNIQUE: Frontal view of the chest. COMPARISON: 03/06/2024 FINDINGS: Lungs and pleural spaces: Stable small left pleural effusion and left basilar airspace consolidation. No pneumothorax. Heart: Stable enlargement, right ventricular pacing device and aortic valve prosthetic stent. Mediastinum: Normal contour. Bones/joints: No fracture, erosion or dislocation. Soft tissues: No abnormality noted. No radiopaque foreign body noted. Upper abdomen: No abnormality noted. IMPRESSION: Stable small left pleural effusion and left basilar airspace consolidation. Consider mucous plugging. ACT 112: Negative or not required by law. Electronically signed by Jasmine Ramirez 03-09-2024 2:39 PM
[2024-03-10 06:18] LABS: Basophils # (auto) 0.02 K/uL (0.00-0.20); Basophils % (auto) 0.2 %; Eosinophils # (auto) 0.11 K/uL (0.00-0.50); Eosinophils % (auto) 0.9 %; Hematocrit (blood only) 26.7 % (42.0-52.0); Hemoglobin 8.4 g/dl (14.0-18.0); Immature Granulocytes % (auto) 0.8 %; Lymphocytes # (auto) 1.05 K/uL (1.20-3.40); Lymphocytes % (auto) 8.4 %; Mean Corpuscular Hemoglobin 24.7 pg (25.0-34.0); Mean Corpuscular Hgb Conc 31.5 g/dL (32.0-36.0); Mean Corpuscular Volume 78.5 fL (80.0-100.0); Mean Platelet Volume 9.2 fL (9.4-12.4); Monocytes # (auto) 1.05 K/uL (0.11-0.59); Monocytes % (auto) 8.4 %; Neutrophils # (auto) 10.14 K/uL (1.40-6.50); Neutrophils % (auto) 81.3 %; Platelet Count 321 K/uL (130-400); RDW Coefficient of Variation 19.5 % (11.5-14.5); RDW Standard Deviation 55.5 fL (36.4-46.3); White Blood Count 12.47 K/ul (4.8-10.8)
[2024-03-10 06:31] LABS: BUN Creatinine Ratio 22.8 (10-20); Calcium 8.7 mg/dl (8.6-10.3); Creatinine Clr Calc Pharmacy 55.2 ml/min; Magnesium 1.8 mg/dl (1.7-2.4); Phosphorus 3.1 mg/dl (2.5-4.9); Potassium 3.9 mmol/L (3.5-5.1)
[2024-03-10 06:45] LABS: Prothrombin Time 29.4 Seconds (9.0-12.0)
--- NOTE | 2024-03-10 13:20 | Hospitalist Progress Note ---
Date of Service March 10, 2024 Assessment & Plan (1) Acute on chronic diastolic heart failure with preserved ejection fraction: (2) Symptomatic anemia: (3) Supratherapeutic INR: (4) Atrial fibrillation: (5) Elbow mass: (6) HTN (hypertension): (7) Dyslipidemia: (8) CKD (chronic kidney disease), stage III: (9) History of bioprosthetic transcatheter aortic valve implantation (KEILA): (10) Sleep apnea: (11) Prostate cancer: Plan Patient is 88-year-old male with PMH chronic atrial fibrillation anticoagulated on warfarin, history KEILA in 10/2018, symptomatic s/p pacemaker, chronic diastolic heart failure, HTN, dyslipidemia, CKD III, sleep apnea, prostate cancer, obesity presented to ER with c/o exertional SOB. Acute hypoxemic respiratory failure secondary to decompensated HF Supplemental O2 Diuretic Rx- patient was treated with IV diuretics with about 3L of output. Transitioned to p.o. diuretics Strict I/Os, daily weights, CHF education, fluid restriction Cardiology consulted, appreciate recs 03/10- episodes of hypoxia while working with PT/OT, repeat CT chest ordered for further evaluation. Chest xray ordered on 03/09 reviewed and unremarkable for acute changes. repeat CT chest now noting large pericardial effusion, stat cons ult to cardiology. Case discussed with Dr. Jamison Menjivar who recommended since patient otherwise hemodynamically stable, repeat echo will be done first thing in the morning, limit activity (bedrest ordered), no further doses of diuretics given p.o. Lasix this morning. 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 -family would like followup sooner [place] Oncology consulted, appreciate recs -biopsy by IR needed, order placed. Family agreeable Recurrent metastatic prostate CA status post radiation status post androgen deprivation Rx on Lupron Prediabetes hemoglobin A1c of 5.04 December 2023 DVT prophylaxis. coumadin on hold, INR supratherapeutic currently DNR as per patient prior directives as per family. Dispo: PT/OT for further recs Admission and Anticipated Discharge Date Admission Date: March 06, 2024 Subjective pt was seen in the AM, denied acute concerns. Anxious for discharge. AAOx1 Notified by nursing that patient drops acutely and saturations sometimes as well as the 70s with ambulation with physical therapy and Occupational Therapy sometimes requiring up to 4 L of oxygen and can go down to [address] ordered Findings and next steps discussed with family at bedside had about 6:45 PM. Review of Systems Review of Systems: All systems reviewed & are unremarkable except as noted in Subjective Physical Exam Physical Exam: General: Alert, orientedx1. No acute distress Psych: Appropriate mood and affect Neuro: No gross deficits HEENT: NC/AT CV: RRR, +murmur Resp: Breath sounds clear bilaterally, no increased effort of breathing Abdomen: Soft, nontender Extremities:right arm mass, edema in lower extremities bilaterally. Results & Data Results & Data Vital Signs (Past 12 Hours) Vital Signs Temp Pulse Resp BP Pulse Ox O2 Del Method O2 Flow Rate 03/10/24 10:57 36.4 C L 74 19 120/69 98 Nasal Cannula 3 03/10/24 09:18 Nasal Cannula 3 03/10/24 07:44 36.7 C 68 19 101/59 L 94 Nasal Cannula 1 03/10/24 06:02 60 115/71 03/10/24 03:24 37.1 C 72 18 132/77 96 Nasal Cannula 2.0 (6) HTN (hypertension) Hypertension type: primary hypertension Qualified Code(s): I10 - Essential (primary) hypertension
--- NOTE | 2024-03-10 14:18 | CT Scan Report ---
EXAMINATION: Chest CT without CLINICAL HISTORY: Hypoxia with exertion TECHNIQUE: Contiguous axial images were obtained through the chest without the use of intravenous contrast. Sagittal and coronal reformations are supplied. COMPARISON: Chest radiograph 03/06/2024, 03/09/2024 FINDINGS: Lung volumes are mildly diminished. Motion artifact degrades image quality. A large left pleural effusion is present, unchanged. Mild ground glass attenuation or subtle opacity present in the left upper lobe versus atelectasis. Small right pleural effusion is present. Heart size is extremely enlarged. A large pericardial effusion is present, measuring up to 19.6 mm. Prosthetic cardiac valve is noted. Left-sided cardiac device is present within the subcutaneous tissues of the left chest wall. No adenopathy or dominant mass. Trachea and mainstem bronchi are patent. Anasarca noted. Moderate ascites present in the upper abdomen. No rib fracture or pneumothorax. Advanced osseous demineralization noted. Moderate kyphosis present. No high-grade compression fracture of the thoracic spine. IMPRESSION: 1. Radiographic features of volume overload with large left and small right pleural effusions. 2. Markedly enlarged size of the heart with large pericardial effusion measuring 19.6 mm. 3. Anasarca and moderate ascites. ACT 112: Positive. There are findings on this examination that require communication between the performing entity and the patient following Patient Test Result Information Act ([place] ACT 112) guidelines. Electronically signed by Tracy Ford 03-10-2024 2:17 PM
[2024-03-10] MEDS ORDERED: FUROSEMIDE INJ 20 MG/2 ML VIAL IV SCH (21:00)
--- NOTE | 2024-03-11 07:25 | Hospitalist Progress Note ---
Date of Service March 11, 2024 Assessment & Plan (1) Acute on chronic diastolic heart failure with preserved ejection fraction: (2) Symptomatic anemia: (3) Supratherapeutic INR: (4) Atrial fibrillation: (5) Elbow mass: (6) HTN (hypertension): (7) Dyslipidemia: (8) CKD (chronic kidney disease), stage III: (9) History of bioprosthetic transcatheter aortic valve implantation (KEILA): (10) Sleep apnea: (11) Prostate cancer: Plan Patient is 88-year-old male with PMH chronic atrial fibrillation anticoagulated on warfarin, history KEILA in 10/2018, symptomatic s/p pacemaker, chronic diastolic heart failure, HTN, dyslipidemia, CKD III, sleep apnea, prostate cancer, obesity presented to ER with c/o exertional SOB. Acute hypoxemic respiratory failure secondary to decompensated HF Pleural Effusions Supplemental O2 Diuretic Rx- patient was treated with IV diuretics with about 3L of output. Transitioned to p.o. diuretics Strict I/Os, daily weights, CHF education, fluid restriction Cardiology consulted, appreciate recs 03/10- episodes of hypoxia while working with PT/OT, repeat CT chest ordered for further evaluation. Chest xray ordered on 03/09 reviewed and unremarkable for acute changes. repeat CT chest now noting large pericardial effusion, stat consult to cardiology. Case discussed with Dr. Jamison Menjivra who recommended since patient otherwise hemodynamically stable, repeat echo will be done first thing in the morning, limit activity (bedrest ordered), no further doses of diuretics given p.o. Lasix in the AM. Pulmonology consulted, appreciate recs. Recommended/stated the following: " Hypoxemia: Think the patient's presentation can be explained by compressive atelectasis and fluid overload. Recommend that he avoid the supine position except when sleeping. Recommend that he get up to the chair and remain upright is much as possible. Will start incentive spirometry. Wean oxygen to maintain saturations at or above 88%. It is possible the patient may require supplemental oxygen at discharge. 2. Pleural effusion: Suspect related to the patient's underlying heart issues and given his ascites and lower extremity edema. Effusion is currently too small to consider sampling. Recommend continued management with diuretics with attention to kidney function. If the effusion should increase in size or become refractory to diuretics, consultation with interventional radiology for thoracentesis might be appropriate although anticoagulation would need to be held (INR less than 1.5)." Continue to monitor, 2 step evaluation needed before discharge Enlarging Pericardial Effusion Noted on CT chest Stat consult to cardiology, case discussed as noted above- pt hemodynamically stable, echo to be done first thing in AM EKG ordered noting paced rhythm Troponin normal Repeat echo noting EF of 55 to 60%, new small loculated posterior lateral pericardial effusion, ascites seen as well as pleural effusions Cardiology consulted, appreciate recs. Recommended/stated the following: "Echocardiogram reviewed. Results discussed with both patient and family at bedside. No indication for pericardiocentesis. Appears the fluid is mostly pleural on the CT scan. Consider titration of furosemide to 40 mg twice daily. INR 2.9 today. Warfarin remains on hold.Monitor fluid balance, daily weight, GFR, and electrolytes. Gastroenterology consulted to consider paracentesis. Repeat limited echocardiogram in 2 weeks for surveillance of small pericardial effusion." Given concurrent gastroenterology recommendations, will continue with Lasix 40 mg daily at this time. GI recommending increasing spironolactone for comorbid cirrhosis. 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 Stated recommended the following: "CT in past showed cirrhosis with ascites. 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 As his heart function improves, so will the liver. Will check hep serologies and asma to complete w/up. Continue lasix and aldactone (from GI perpective can go up on aldactone and eliminate KCL as long as CKD okay 2: 5 ratio with upto 100 mg aldactone). Would start slowly at 25 and go up." Spironolactone increased from 12.5 to 25 mg daily. 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 -family would like followup sooner [facility] Oncology consulted, appreciate recs -biopsy by IR needed, order placed. Family agreeable Interventional radiology consulted, appreciate recs. Recommended or stated the following: "Patient seen and imaging reviewed. Discussed with attending radiologist, Dr Torre, and would defer tissue sampling to surgical speciality." Orthopedics contacted once more and advised that surgical specialty should sample at what ever facility patient will be having surgery. [facility] oncology will be contacted for further recommendations for orthopedic oncologist referral SSS status post PPM on Coumadin, INR supratherapeutic on arrival Coumadin currently on hold, INR 2.9 currently Given no current need for procedures (no biopsy or paracentesis per GI), warfarin will be resumed on 03/12/24 ( holding today as INR currently therapeutic but hemoglobin of 7.7 noted in the AM) Acute on chronic anemia possibly dilutional given fluid retention FOBT done at the ER was negative Anemia panel if worsening/persistent Transfuse PRBC to maintain hemoglobin of at least 8 given history of PVD/symptomatic anemia Hemoglobin of 7.7 on 03/11/2024, repeat H&H pending Continue to monitor Recurrent metastatic prostate CA status post radiation status post androgen deprivation Rx on Lupron Prediabetes hemoglobin A1c of 5.04 December 2023 DVT prophylaxis. coumadin on hold, INR supratherapeutic currently DNR as per patient prior directives as per family. Dispo: PT/OT for further recs Admission and Anticipated Discharge Date Admission Date: March 06, 2024 Subjective Patient was seen in the a.m. with his and family friend at bedside He noted that he had been in bed and denied any shortness of breath or chest pain or palpitations overnight Per nursing staff no acute events overnight Family anxious to meet with providers from different specialties concerning his current symptoms. Review of Systems Review of Systems: All systems reviewed & are unremarkable except as noted in Subjective Physical Exam Physical Exam: General: Alert, orientedx1. No acute distress Psych: Appropriate mood and affect Neuro: No gross deficits HEENT: NC/AT CV: RRR, +murmur Resp: Breath sounds clear bilaterally, no increased effort of breathing Abdomen: Soft, nontender Extremities:right arm mass, edema in lower extremities bilaterally. Results & Data Results & Data Vital Signs (Past 12 Hours) Vital Signs Temp Pulse Resp BP Pulse Ox O2 Del Method O2 Flow Rate 03/11/24 07:24 36.4 C L 76 18 104/65 95 Nasal Cannula 2 03/11/24 06:11 117/68 03/11/24 03:49 36.5 C 70 20 130/75 96 Nasal Cannula 1.0 03/10/24 21:59 37.2 C 59 L 18 105/44 L 96 Nasal Cannula 1.0 03/10/24 20:00 Nasal Cannula 1 03/10/24 19:43 36.4 C L 61 18 116/73 96 Nasal Cannula 1.0 (6) HTN (hypertension) Hypertension type: primary hypertension Qualified Code(s): I10 - Essential (primary) hypertension
[2024-03-11 08:01] LABS: Basophils # (auto) 0.02 K/uL (0.00-0.20); Basophils % (auto) 0.2 %; Eosinophils # (auto) 0.09 K/uL (0.00-0.50); Eosinophils % (auto) 0.8 %; Hematocrit (blood only) 24.8 % (42.0-52.0); Hemoglobin 7.7 g/dl (14.0-18.0); Immature Granulocytes # (auto) 0.09 K/uL (0.01-0.20); Immature Granulocytes % (auto) 0.8 %; Lymphocytes # (auto) 0.93 K/uL (1.20-3.40); Lymphocytes % (auto) 7.8 %; Mean Corpuscular Hemoglobin 24.3 pg (25.0-34.0); Mean Corpuscular Volume 78.2 fL (80.0-100.0); Mean Platelet Volume 10.3 fL (9.4-12.4); Monocytes # (auto) 1.02 K/uL (0.11-0.59); Monocytes % (auto) 8.5 %; Neutrophils # (auto) 9.83 K/uL (1.40-6.50); Neutrophils % (auto) 81.9 %; Platelet Count 290 K/uL (130-400); RDW Coefficient of Variation 20.2 % (11.5-14.5); RDW Standard Deviation 57.2 fL (36.4-46.3); Red Blood Count 3.17 M/uL (4.70-6.10); White Blood Count 11.98 K/ul (4.8-10.8)
[2024-03-11 08:17] LABS: BUN Creatinine Ratio 24.7 (10-20); Calcium 8.4 mg/dl (8.6-10.3); Creatinine Clr Calc Pharmacy 62.7 ml/min; Magnesium 1.7 mg/dl (1.7-2.4)
[2024-03-11 08:23] LABS: INR 2.9 (0.9-1.1); Prothrombin Time 28.2 Seconds (9.0-12.0)
[2024-03-11 08:24] LABS: Anisocytosis Present; Hypochromasia Present
--- NOTE | 2024-03-11 10:05 | Gastrointestinal Consultation ---
Date of Consultation March 11, 2024 Assessment & Plan (1) Ascites: Patient admitted with worsening SOB and lower extremity edema. Patient has chronic heart failure and would suspect that this is likely the cause for his fluid overload. He has seen improvement in symptoms since admission. - continue with lasix 40mg daily and spironolactone 12.5 mg daily. may need to change dosages. - recommend paracentesis. - will discuss the case further with Dr. Gibson, further recommendations to follow. Supervising Physician Co-Signing Physician Notes 88 year old male with a past medical history of chronic atrial fibrillation anticoagulated on warfarin, history KEILA in 10/2018, s/p pacemaker, chronic diastolic heart failure, HTN, dyslipidemia, RVSP 61, CKD III, sleep apnea, prostate cancer, obesity who presented to ED with complaints of exertional SOB and lower extremity edema. Per inpatient chart review recent history of hospitalization 01/26/2024-01/31/2024 for symptomatic anemia, hematochezia and acute on chronic HFpEF. During that hospitalization GI was consulted and patient had underwent colonoscopy and EGD on 01/29/24 showing normal upper endoscopy and internal hemorrhoids and diverticulosis on colonoscopy. CT in pas t showed cirrhosis with ascites. 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 As his heart function improves, so will the liver. Will check hep serologies and asma to complete w/up. Continue lasix and aldactone (from GI perpective can go up on aldactone and eliminate KCL as long as CKD okay 2: 5 ratio with upto 100 mg aldactone). Would start slowly at 25 and go up. History of Present Illness Reason for Consultation: moderate ascites/ cirrhosis / volume overload Requesting Physician: Stephanie Daniels MD Attending Physician: Stephanie Cuenca MD History of Present Illness Patient is an 88 year old male with a past medical history of chronic atrial fibrillation anticoagulated on warfarin, history KEILA in 10/2018, s/p pacemaker, chronic diastolic heart failure, HTN, dyslipidemia, CKD III, sleep apnea, prostate cancer, obesity who presented to ED with complaints of exertional SOB and lower extremity edema. Per inpatient chart review recent history of hospitalization 01/26/2024-01/31/2024 for symptomatic anemia, hematochezia and acute on chronic HFpEF. During that hospitalization GI was consulted and patient had underwent colonoscopy and EGD on 01/29/24 showing normal upper endoscopy and internal hemorrhoids and diverticulosis on colonoscopy. Patient was diuresed with IV Lasix and transition to 40 mg Lasix daily with his prior home HCTZ discontinued. he tells me that he did not feel this kept his fluid under control as it started to return. On this current admission, he is on lasix 40mg daily and spironolactone 12.5 mg daily. he feels that since inpatient, his lower extremity edema and ascites has improved. Patient had new finding of cirrhosis on imaging from last month. He denies any significant alcohol use or family history of liver disease. Patient denies any current issues with nausea, vomiting, dysphagia, heartburn, abdominal pain, unintentional weight loss, change in bowels, melena, or bright red blood per rectum. 03/06/24 LFTs wnl other than alk phos 113. Allergies Allergy/AdvReac Type Severity Reaction Status Date / Time No Known Allergies Allergy Verified 01/26/24 14:50 Home Medications Medication Instructions Recorded Confirmed Type acetaminophen 325 mg tablet 325 mg PO Q6 PRN as directed 10/11/18 03/06/24 History cholecalciferol (vitamin D3) 25 1,000 unit PO QAM 10/11/18 03/06/24 History mcg (1,000 unit) tablet amlodipine 2.5 mg tablet 2.5 mg PO QAM 01/26/24 03/06/24 History aspirin 81 mg tablet,delayed 81 mg PO .ON HOLD 01/26/24 03/06/24 History release atorvastatin 20 mg tablet 20 mg PO DAILY 01/26/24 03/06/24 History isosorbide dinitrate 20 mg tablet 20 mg PO BID 01/26/24 03/06/24 History metoprolol succinate 25 mg 25 mg PO DAILY 01/26/24 03/06/24 History tablet,extended release 24 hr omeprazole 20 mg capsule,delayed 20 mg PO QAM 01/26/24 03/06/24 History release potassium chloride 20 mEq 20 meq PO QAM #30 tabs 01/31/24 03/06/24 Rx tablet,extended release(part/cryst) ferrous sulfate 325 mg (65 mg 325 mg PO QDB 03/06/24 03/06/24 History iron) tablet,delayed release furosemide 40 mg tablet 40 mg PO QAM 03/06/24 03/06/24 History warfarin 5 mg tablet 5 - 10 mg PO .ON HOLD SINCE 03/0503/06/24 03/06/24 History Patient History Medical History (Updated 03/11/24 @ 11:23 by Dontae Palomino DO) Encounter for pre-operative examination Weakness Anemia Social History Smoking Status: Never smoker Second Hand Exposure: No; Do You Dip or Chew Tobacco: No; Hx Alcohol Use: No Hx Substance Use: No Preferred Language: Greek Communication Ability: Effective Electronic Tester Required: No Beliefs That Will Affect Care: None Current Living Situation: Spouse Feels Safe at Home: Yes Assistive Devices: None Review of Systems Review of Systems: All systems reviewed & are unremarkable except as noted in HPI & below Physical Exam Constitutional: WD/WN, vitals as above Respiratory: normal respiratory effort, lungs clear to auscultation Cardiovascular: Rate/Rhythm: regular rate and regular rhythm Gastrointestinal (Abdomen): ascites noted on exam, nontender to palpation, normal bowel sounds. Psychiatric: Orientation: alert and oriented x 3 Affect: euthymic affect Results & Data Vital Signs (Past 12 Hours) Vital Signs Temp Pulse Resp BP Pulse Ox O2 Del Method O2 Flow Rate 03/11/24 07:24 97.5 F L 76 18 104/65 95 Nasal Cannula 2 03/11/24 06:11 117/68 03/11/24 03:49 97.7 F 70 20 130/75 96 Nasal Cannula 1.0 Coding Level of Care Code 28327 INT INP/OBS CARE 2/55MIN Diagnoses Ascites R18.8
--- NOTE | 2024-03-11 11:01 | Radiology Progress Note ---
Date of Service March 11, 2024 Radiology Progress Note Patient seen and imaging reviewed. Discussed with attending radiologist, Dr Torre, and would defer tissue sampling to surgical speciality. Results & Data Vital Signs (Past 12 Hours) Vital Signs Temp Pulse Resp BP Pulse Ox O2 Del Method O2 Flow Rate 03/11/24 07:24 36.4 C L 76 18 104/65 95 Nasal Cannula 2 03/11/24 06:11 117/68 03/11/24 03:49 36.5 C 70 20 130/75 96 Nasal Cannula 1.0
--- NOTE | 2024-03-11 11:26 | Cardiology Progress Note ---
Date of Service March 11, 2024 Assessment & Plan (1) Pericardial effusion: (2) Pleural effusion: (3) Ascites: (4) Acute on chronic heart failure with preserved ejection fraction: Plan Echocardiogram reviewed. Results discussed with both patient and family at bedside. No indication for pericardiocentesis. Appears the fluid is mostly pleural on the CT scan. Consider titration of furosemide to 40 mg twice daily. INR 2.9 today. Warfarin remains on hold.Monitor fluid balance, daily weight, GFR, and electrolytes. Gastroenterology consulted to consider paracentesis. Repeat limited echocardiogram in 2 weeks for surveillance of small pericardial effusion. Cardiology will sign off. Please call with additional concerns/questions. Admission and Anticipated Discharge Date Admission Date: March 06, 2024 Subjective 88-year-old male seen examined the bedside. Cardiology evaluation requested due to possible large pericardial effusion on CT. Bedside 2D transthoracic echocardiogram performed this a.m. demonstrating a small, loculated posterior lateral pericardial effusion. There is no evidence of tamponade. Patient denies chest pain or unusual shortness of breath. No orthopnea or PND. present at bedside. Offers no additional concerns/complaints. Review of Systems Review of Systems: All systems reviewed & are unremarkable except as noted in Subjective Physical Exam Constitutional: well nourished; no acute distress Respiratory: no respiratory distress and no labored breathing Auscultation: + diminished lung sounds (Left base); no rales and no wheezes Cardiovascular: Rate/Rhythm: regular rate and regular rhythm Heart Sounds: normal S1 and normal S2 Vessels: no JVD Extremities: + edema (Trace to mild bilateral ankle edema with stasis changes.) Gastrointestinal (Abdomen): Inspection/Auscultation: normal bowel sounds; abdomen not distended Percussion/Palpation: abdomen soft; abdomen nontender, no guarding and abdomen not rigid Neurologic: CN's II-XI intact bilaterally and moves all extremities Results & Data Vital Signs (Past 12 Hours) Vital Signs Temp Pulse Resp BP Pulse Ox O2 Del Method O2 Flow Rate 03/11/24 11:09 36.8 C 60 17 103/67 98 Nasal Cannula 2 03/11/24 07:24 36.4 C L 76 18 104/65 95 Nasal Cannula 2 03/11/24 06:11 117/68 03/11/24 03:49 36.5 C 70 20 130/75 96 Nasal Cannula 1.0 Laboratory Results Cardiac Enzymes 03/10/24 Range/Units 19:08 Troponin I High Sens 11.5 (0-20) pg/ml Coagulation 03/11/24 Range/Units 07:46 PT 28.2 H (9.0-12.0) Seconds CBC 03/11/24 Range/Units 06:40 WBC 11.98 H (4.8-10.8) K/ul RBC 3.17 L (4.70-6.10) M/uL Hgb 7.7 L (14.0-18.0) g/dl Hct 24.8 L (42.0-52.0) % Plt Count 290 (130-400) K/uL Neut # (Auto) 9.83 H (1.40-6.50) K/uL Lymph # (Auto) 0.93 L (1.20-3.40) K/uL [place] # (Auto) 1.02 H (0.11-0.59) K/uL Eos # (Auto) 0.09 (0.00-0.50) K/uL Baso # (Auto) 0.02 (0.00-0.20) K/uL Comprehensive Metabolic Panel 03/11/24 Range/Units 06:40 Sodium 135 L (136-145) mmol/L Potassium 4.0 (3.5-5.1) mmol/L Chloride 97 L (98-107) mmol/L Carbon Dioxide 32 (21-32) mmol/L BUN 20 (6-23) mg/dl Creatinine 0.81 (0.6-1.4) mg/dl Glucose 101 H (70-99(Fasting)) mg/dl Calcium 8.4 L (8.6-10.3) mg/dl Intake and Output 03/10/24 03/11/24 03/11/24 22:59 06:59 14:59 Intake Total 620 / 740 Output Total 250 / 625 175 / 625 Balance 370 / 115 -175 / 115 Intake: Oral 620 / 740 Output: Urine 250 / 625 175 / 625 Other: Other Intake Source SIPS SIPS # Unmeasured Voids 2 Weight 77 kg Weight Measurement Method Built in [facility]
--- NOTE | 2024-03-11 11:58 | Pulmonary Consultation ---
Date of Consultation March 11, 2024 Assessment & Plan (1) Acute on chronic heart failure with preserved ejection fraction: (2) Pleural effusion: (3) Ascites: Plan Impression: 88-year-old male with chronic diastolic heart failure chronic kidney disease admitted with fluid overload. CT scan showed a small left-sided pleural effusion with some compressive atelectasis. The patient has been noted to be hypoxemic with ambulation. Recommendations: 1. Hypoxemia: Think the patient's presentation can be explained by compressive atelectasis and fluid overload. Recommend that he avoid the supine position except when sleeping. Recommend that he get up to the chair and remain upright is much as possible. Will start incentive spirometry. Wean oxygen to maintain saturations at or above 88%. It is possible the patient may require supplemental oxygen at discharge. 2. Pleural effusion: Suspect related to the patient's underlying heart issues and given his ascites and lower extremity edema. Effusion is currently too small to consider sampling. Recommend continued management with diuretics with attention to kidney function. If the effusion should increase in size or become refractory to diuretics, consultation with interventional radiology for thoracentesis might be appropriate although anticoagulation would need to be held (INR less than 1.5). 3. Management of the patient's other medical issues is deferred to the primary admitting hospitalist. Pulmonary will sign off at this point in time. Feel free to contact us with questions or concerns. History of Present Illness Attending Physician: Stephanie Cuenca MD History of Present Illness Asked by hospitalist to assist in evaluation management this patient with hypoxemia and pleural effusions. History is obtained from discussion with the patient and family at bedside. The patient is an 88-year-old male who was admitted to the hospital 03/06/2024 with shortness of breath. The patient has a history of atrial fibrillation status post TAVR as well as diastolic heart failure hypertension and chronic kidney disease. He had significant lower extremity edema which has improved. He is found to have a mass in his right posterior elbow. Orthopedics recommended IR guided biopsy which is scheduled to take place today. The patient does not use oxygen at home although he is willing to consider oxygen. He leads a fairly sedentary lifestyle. He denies significant shortness of breath. He denies fevers chills night sweats or other constitutional symptoms. He was noted to have oxygen desaturations with ambulation which prompted a repeat CT scan. This revealed a questionable pericardial effusion, small pleural effusion, and some compressive atelectasis and pulmonary was consulted for additional evaluation management. Patient is currently lying supine. He is on 2 L nasal cannula with oxygen saturations of 98%. He appears in no acute distress currently. Allergies Allergy/AdvReac Type Severity Reaction Status Date / Time No Known Allergies Allergy Verified 01/26/24 14:50 Home Medications Medication Instructions Recorded Confirmed Type acetaminophen 325 mg tablet 325 mg PO Q6 PRN as directed 10/11/18 03/06/24 History cholecalciferol (vitamin D3) 25 1,000 unit PO QAM 10/11/18 03/06/24 History mcg (1,000 unit) tablet amlodipine 2.5 mg tablet 2.5 mg PO QAM 01/26/24 03/06/24 History aspirin 81 mg tablet,delayed 81 mg PO .ON HOLD 01/26/24 03/06/24 History release atorvastatin 20 mg tablet 20 mg PO DAILY 01/26/24 03/06/24 History isosorbide dinitrate 20 mg tablet 20 mg PO BID 01/26/24 03/06/24 History metoprolol succinate 25 mg 25 mg PO DAILY 01/26/24 03/06/24 History tablet,extended release 24 hr omeprazole 20 mg capsule,delayed 20 mg PO QAM 01/26/24 03/06/24 History release potassium chloride 20 mEq 20 meq PO QAM #30 tabs 01/31/24 03/06/24 Rx tablet,extended release(part/cryst) ferrous sulfate 325 mg (65 mg 325 mg PO QDB 03/06/24 03/06/24 History iron) tablet,delayed release furosemide 40 mg tablet 40 mg PO QAM 03/06/24 03/06/24 History warfarin 5 mg tablet 5 - 10 mg PO .ON HOLD SINCE 03/0503/06/24 03/06/24 History Patient History Medical History (Updated 03/11/24 @ 11:23 by Dontae Palomino DO) Encounter for pre-operative examination Weakness Anemia Social History Smoking Status: Never smoker Second Hand Exposure: No; Do You Dip or Chew Tobacco: No; Hx Alcohol Use: No Hx Substance Use: No Preferred Language: [place]an Communication Ability: Effective Modeling Instructor Required: No Beliefs That Will Affect Care: None Current Living Situation: Spouse Feels Safe at Home: Yes Assistive Devices: None Review of Systems Review of Systems: All systems reviewed & are unremarkable except as noted in Subjective Physical Exam Constitutional: well nourished; no acute distress Respiratory: no respiratory distress and no labored breathing Auscultation: + diminished lung sounds (Left base); no rales and no wheezes Cardiovascular: Rate/Rhythm: regular rate and regular rhythm Heart Sounds: normal S1 and normal S2 Vessels: no JVD Extremities: + edema (Trace to mild bilateral ankle edema with stasis changes.) Gastrointestinal (Abdomen): Inspection/Auscultation: normal bowel sounds; abdomen not distended Percussion/Palpation: abdomen soft; abdomen nontender, no guarding and abdomen not rigid Neurologic: CN's II-XI intact bilaterally and moves all extremities Results & Data Results & Data Vital Signs (Past 12 Hours) Vital Signs Temp Pulse Resp BP Pulse Ox O2 Del Method O2 Flow Rate 03/11/24 11:09 36.8 C 60 17 103/67 98 Nasal Cannula 2 03/11/24 07:24 36.4 C L 76 18 104/65 95 Nasal Cannula 2 03/11/24 06:11 117/68 03/11/24 03:49 36.5 C 70 20 130/75 96 Nasal Cannula 1.0 Critical Care Results & Data Vital Signs (Past 12 Hours) Vital Signs Temp Pulse Resp BP Pulse Ox O2 Del Method O2 Flow Rate 03/11/24 11:09 36.8 C 60 17 103/67 98 Nasal Cannula 2 03/11/24 07:24 36.4 C L 76 18 104/65 95 Nasal Cannula 2 03/11/24 06:11 117/68 03/11/24 03:49 36.5 C 70 20 130/75 96 Nasal Cannula 1.0 Lab & Micro Results (Past 24 Hours) RBC 3.17 M/uL (4.70-6.10) L 03/11/24 WBC 11.98 K/ul (4.8-10.8) H 03/11/24 Hgb 7.7 g/dl (14.0-18.0) L 03/11/24 Hct 24.8 % (42.0-52.0) L 03/11/24 MCV 78.2 fL (80.0-100.0) L 03/11/24 MCH 24.3 pg (25.0-34.0) L 03/11/24 MCHC 31.0 g/dL (32.0-36.0) L 03/11/24 RDW Standard Deviation 57.2 fL (36.4-46.3) H 03/11/24 RDW Coefficient of Variation 20.2 % (11.5-14.5) H 03/11/24 Plt Count 290 K/uL (130-400) 03/11/24 MPV 10.3 fL (9.4-12.4) 03/11/24 Neutrophils (%) (Auto) 81.9 % 03/11/24 Lymphocytes (%) (Auto) 7.8 % 03/11/24 Monocytes # (Auto) 1.02 K/uL (0.11-0.59) H 03/11/24 Eosinophils # (Auto) 0.09 K/uL (0.00-0.50) 03/11/24 Immature Granulocyte % (Auto) 0.8 % 03/11/24 Neutrophils # (Auto) 9.83 K/uL (1.40-6.50) H 03/11/24 Lymphocytes # (Auto) 0.93 K/uL (1.20-3.40) L 03/11/24 Monocytes # (Auto) 1.02 K/uL (0.11-0.59) H 03/11/24 Eosinophils # (Auto) 0.09 K/uL (0.00-0.50) 03/11/24 Basophils # (Auto) 0.02 K/uL (0.00-0.20) 03/11/24 Immature Granulocyte # (Auto) 0.09 K/uL (0.01-0.20) 4 Hypochromasia Present 03/11/24 Anisocytosis Present 03/11/24 Na 135 mmol/L (136-145) L 03/11/24 K 4.0 mmol/L (3.5-5.1) 03/11/24 Cl 97 mmol/L (98-107) L 03/11/24 CO2 32 mmol/L (21-32) 03/11/24 Anion Gap 6 (3-11) 03/11/24 BUN 20 mg/dl (6-23) 12/16/24 Creatinine 0.81 mg/dl (0.6-1.4) 03/11/24 BUN/Creatinine Ratio 24.7 (10-20) H 03/11/24 Glu 101 mg/dl (70-99(Fasting)) H 03/11/24 Ca 8.4 mg/dl (8.6-10.3) L 03/11/24 Phosphorus Level 3.0 mg/dl (2.5-4.9) 03/11/24 Mg 1.7 mg/dl (1.7-2.4) 03/11/24 06:40 Calcium Level 8.4 mg/dl (8.6-10.3) L 03/11/24 06:40 Prothromb Time International Ratio 2.9 (0.9-1.1) H 03/11/24 07 :46 Diagnostic Findings (Past 24 Hours) Chest CT 03/10/24 13:38 EXAMINATION: Chest CT without CLINICAL HISTORY: Hypoxia with exertion TECHNIQUE: Contiguous axial images were obtained through the chest without the use of intravenous contrast. Sagittal and coronal reformations are supplied. COMPARISON: Chest radiograph 03/06/2024, 03/09/2024 FINDINGS: Lung volumes are mildly diminished. Motion artifact degrades image quality. A large left pleural effusion is present, unchanged. Mild ground glass attenuation or subtle opacity present in the left upper lobe versus atelectasis. Small right pleural effusion is present. Heart size is extremely enlarged. A large pericardial effusion is present, measuring up to 19.6 mm. Prosthetic cardiac valve is noted. Left-sided cardiac device is present within the subcutaneous tissues of the left chest wall. No adenopathy or dominant mass. Trachea and mainstem bronchi are patent. Anasarca noted. Moderate ascites present in the upper abdomen. No rib fracture or pneumothorax. Advanced osseous demineralization noted. Moderate kyphosis present. No high-grade compression fracture of the thoracic spine. IMPRESSION: 1. Radiographic features of volume overload with large left and small right pleural effusions. 2. Markedly enlarged size of the heart with large pericardial effusion measuring 19.6 mm. 3. Anasarca and moderate ascites. ACT 112: Positive. There are findings on this examination that require communication between the performing entity and the patient following Patient Test Result Information Act ([place] ACT 112) guidelines. Electronically signed by Tracy Ford 12-15-2024 2:17 PM I & O Totals 24 Hours 03/10/24 03/11/24 03/12/24 06:59 06:59 06:59 Intake Total 650 / 650 740 / 740 Output Total 576 / 576 625 / 625 Balance 74 / 74 115 / 115 Cumulative 03/06/24 17:34 thru 03/11/24 06:00 Intake Total 3230 Output Total 5834 Balance -2604 RT Ventilator Mngmt (Last Documented) Ventilator Ordered Settings Respiratory Rate 17 03/11/24 11:09 Ventilator - PT Measurements Respiratory Rate 17 PG Care Time/CCT Total # of Minutes Spent Total Time Spent with Patient: Total time spent is greater than 50% in coordination of care (as documented) at patient's floor/unit and/or counseling patient: Coding Level of Care Code 70408 INT INP/OBS CARE 3/75MIN Diagnoses Acute on chronic heart failure with preserved ejection fraction I50.33 Pleural effusion J90 Ascites R18.8
[2024-03-11] MEDS ORDERED: WARFARIN SOD 5 MG TAB PO SCH (16:00)
[2024-03-11 16:02] LABS: Hematocrit (blood only) 25.5 % (42.0-52.0); Hemoglobin 7.9 g/dl (14.0-18.0)
[2024-03-11] MEDS ORDERED: FUROSEMIDE 40 MG TAB PO SCH (17:00)
[2024-03-11 17:47] LABS: Hep B Surface Ag with confirm Negative (Negative)
[2024-03-11 17:52] LABS: Hep C Ab Rflx HepCQuant RNA Negative (Negative)
[2024-03-11 17:55] LABS: Hepatitis B Surface Ab Quant < 3.00 mIU/mL (>or=10mIU/mL Immune); Hepatitis B Surface Antibody Non-Immune
--- NOTE | 2024-03-12 05:45 | Electrocardiogram Report ---
Test Reason : Blood Pressure : */* mmHG Vent. Rate : 61 BPM Atrial Rate : 61 BPM P-R Int : * ms QRS Dur : 104 ms QT Int : 424 ms P-R-T Axes : 117 -61 96 degrees QTcB Int : 426 ms Ventricular-paced rhythm Abnormal ECG When compared with ECG of 06-Mar-2024 18:00, No significant change was found Confirmed by Duane Pérez ([id number]) on 03/12/2024 5:44:50 AM Referred By: REFERRED SELF Confirmed By: Duane Pérez
[2024-03-12] MEDS: ACETAMINOPHEN 500 MG TAB PO PRN (06:07)
[2024-03-12 06:12] LABS: Basophils # (auto) 0.03 K/uL (0.00-0.20); Basophils % (auto) 0.2 %; Eosinophils # (auto) 0.12 K/uL (0.00-0.50); Hematocrit (blood only) 24.3 % (42.0-52.0); Hemoglobin 7.7 g/dl (14.0-18.0); Immature Granulocytes # (auto) 0.08 K/uL (0.01-0.20); Immature Granulocytes % (auto) 0.6 %; Lymphocytes % (auto) 8.8 %; Mean Corpuscular Hemoglobin 24.8 pg (25.0-34.0); Mean Corpuscular Hgb Conc 31.7 g/dL (32.0-36.0); Mean Corpuscular Volume 78.1 fL (80.0-100.0); Mean Platelet Volume 9.6 fL (9.4-12.4); Monocytes # (auto) 1.09 K/uL (0.11-0.59); Monocytes % (auto) 8.7 %; Neutrophils # (auto) 10.14 K/uL (1.40-6.50); Neutrophils % (auto) 80.7 %; Platelet Count 282 K/uL (130-400); RDW Coefficient of Variation 20.1 % (11.5-14.5); RDW Standard Deviation 57.3 fL (36.4-46.3); Red Blood Count 3.11 M/uL (4.70-6.10); White Blood Count 12.56 K/ul (4.8-10.8)
[2024-03-12 06:32] LABS: Anion Gap 6 (3-11); BUN Creatinine Ratio 20.7 (10-20); Blood Urea Nitrogen 18 mg/dl (6-23); Calcium 8.3 mg/dl (8.6-10.3); Carbon Dioxide 31 mmol/L (21-32); Chloride 97 mmol/L (98-107); Creatinine Clr Calc Pharmacy 58.4 ml/min; Glucose 102 mg/dl (70-99(Fasting)); Sodium 134 mmol/L (136-145)
[2024-03-12 06:35] LABS: Anisocytosis Present; Ovalocytes 1+; Poikilocytosis Present
[2024-03-12 06:49] LABS: Ferritin 649.4 ng/ml (8-388); Iron < 10 mcg/dl (35-175); Magnesium 1.6 mg/dl (1.7-2.4); Phosphorus 3.1 mg/dl (2.5-4.9); Total Iron Binding Cap Calc 158 mcg/dl (250-450); Transferrin 113 mg/dl (200-360)
[2024-03-12 06:55] LABS: Folate (Folic Acid),Ser orPlas 6.69 ng/ml (>5.38)
[2024-03-12] MEDS: FUROSEMIDE 40 MG TAB PO SCH (08:51)
[2024-03-12] MEDS: SPIRONOLACTONE 25 MG TAB PO SCH (08:52)
[2024-03-12] MEDS: MAGNESIUM OXIDE 400 MG TAB PO SCH (09:03)
[2024-03-12] MEDS ORDERED: traMADol HCL 50 MG TABLET PO PRN (09:13)
[2024-03-12] MEDS: IRON SUCROSE 200 MG in SODIUM CHLORIDE 0.9% 100 ML IV ONE (10:02)
[2024-03-12] MEDS: MAGNESIUM SULFATE / D5W 1 GM/100 ML BAG IV ONE (10:15)
--- NOTE | 2024-03-12 10:16 | Gastroenterology Progress Note ---
Date of Service March 12, 2024 Assessment & Plan (1) Ascites: Plan: - continue with lasix 40mg daily and spironolactone 25 mg daily. spironolactone can be slowly increased up to 100mg as tolerated. - recommend paracentesis for ascites when stable. - For the non GI complaints, I had discussed with nursing and they are reaching out to primary team to address. Admission and Anticipated Discharge Date Admission Date: March 06, 2024 Subjective Patient is complaining mainly of blurred vision and dizziness this morning. he feels fluid retention has improved somewhat. Aldactone was increased to 25mg yesterday. no new GI concerns. ASMA pending, hep A pending. He is not immune to hep B. Hep C negative. Review of Systems Review of Systems: All systems reviewed & are unremarkable except as noted in HPI & below Physical Exam Constitutional: WD/WN, vitals as above Respiratory: normal respiratory effort, lungs clear to auscultation Cardiovascular: Rate/Rhythm: regular rate and regular rhythm Gastrointestinal (Abdomen): abdominal ascites. normal bowel sounds. nontender. Psychiatric: Orientation: alert and oriented x 3 Affect: euthymic affect Results & Data Results & Data Vital Signs (Past 12 Hours) Vital Signs Temp Pulse Resp BP Pulse Ox O2 Del Method O2 Flow Rate 03/12/24 08:59 70 112/69 03/12/24 08:45 Nasal Cannula 2 03/12/24 08:00 97.7 F 62 19 107/63 94 Nasal Cannula 2 03/12/24 06:05 108/74 03/12/24 03:23 97.9 F 63 20 120/68 95 Nasal Cannula 3.0 03/11/24 23:09 97.7 F 18 L 18 143/79 H 91 Nasal Cannula 2.0 Coding Level of Care Code 54871 SUB INP/OBS CARE 125MIN Diagnoses Ascites R18.8
--- NOTE | 2024-03-12 10:57 | CT Scan Report ---
CT OF THE HEAD WITHOUT CONTRAST CLINICAL HISTORY: blurry vision for 2 days COMPARISON STUDY: No previous studies for comparison. CT DOSE: 625.8 mGy.cm TECHNIQUE: Helical axial images of the head were obtained without IV contrast. Automated exposure con trol was utilized for the study. A dose lowering technique was utilized adhering to the principles o f ALARA. FINDINGS: No acute intracranial hemorrhage, midline shift or mass effect is present. The ventricular system is unremarkable. The basal cisterns are patent. Mild white matter hypodensities suggest small vessel disease. No extra-axial collections are present. There are no findings to suggest acute dural sinus thrombosis or acute territorial infarct. No significant calvarial abnormalities are present. Vi sualized portions of the sinuses and mastoid air cells are clear. IMPRESSION: No acute intracranial findings. ACT 112: Negative or not required by law. Electronically signed by: Celestine Zepeda M.D. 03/12/2024 10:54 AM
--- NOTE | 2024-03-12 13:10 | Hospitalist Progress Note ---
Date of Service March 12, 2024 Assessment & Plan (1) Acute on chronic diastolic heart failure with preserved ejection fraction: (2) Symptomatic anemia: (3) Supratherapeutic INR: (4) Atrial fibrillation: (5) Elbow mass: (6) HTN (hypertension): (7) Dyslipidemia: (8) CKD (chronic kidney disease), stage III: (9) History of bioprosthetic transcatheter aortic valve implantation (KEILA): (10) Sleep apnea: (11) Prostate cancer: Plan Patient is 88-year-old male with PMH chronic atrial fibrillation anticoagulated on warfarin, history KEILA in 10/2018, symptomatic s/p pacemaker, chronic diastolic heart failure, HTN, dyslipidemia, CKD III, sleep apnea, prostate cancer, obesity presented to ER with c/o exertional SOB. Acute hypoxemic respiratory failure secondary to decompensated HF Pleural Effusions Supplemental O2 Diuretic Rx- patient was treated with IV diuretics with about 3L of output. Transitioned to p.o. diuretics Strict I/Os, daily weights, CHF education, fluid restriction Cardiology consulted, appreciate recs 03/10- episodes of hypoxia while working with PT/OT, repeat CT chest ordered for further evaluation. Chest xray ordered on 03/09 reviewed and unremarkable for acute changes. repeat CT chest now noting large pericardial effusion, stat consult to cardiology. Case discussed with Dr. Jamison Menjivar who recommended since patient otherwise hemodynamically stable, repeat echo will be done first thing in the morning, limit activity (bedrest ordered), no further doses of diuretics given p.o. Lasix in the AM. Pulmonology consulted, appreciate recs. Recommended/stated the following: " Hypoxemia: Think the patient's presentation can be explained by compressive atelectasis and fluid overload. Recommend that he avoid the supine position except when sleeping. Recommend that he get up to the chair and remain upright is much as possible. Will start incentive spirometry. Wean oxygen to maintain saturations at or above 88%. It is possible the patient may require supplemental oxygen at discharge. 2. Pleural effusion: Suspect related to the patient's underlying heart issues and given his ascites and lower extremity edema. Effusion is currently too small to consider sampling. Recommend continued management with diuretics with attention to kidney function. If the effusion should increase in size or become refractory to diuretics, consultation with interventional radiology for thoracentesis might be appropriate although anticoagulation would need to be held (INR less than 1.5)." Continue to monitor, 2 step evaluation needed before discharge Enlarging Pericardial Effusion Noted on CT chest Stat consult to cardiology, case discussed as noted above- pt hemodynamically stable, echo to be done first thing in AM EKG ordered noting paced rhythm Troponin normal Repeat echo noting EF of 55 to 60%, new small loculated posterior lateral pericardial effusion, ascites seen as well as pleural effusions Cardiology consulted, appreciate recs. Recommended/stated the following: "Echocardiogram reviewed. Results discussed with both patient and family at bedside. No indication for pericardiocentesis. Appears the fluid is mostly pleural on the CT scan. Consider titration of furosemide to 40 mg twice daily. INR 2.9 today. Warfarin remains on hold.Monitor fluid balance, daily weight, GFR, and electrolytes. Gastroenterology consulted to consider paracentesis. Repeat limited echocardiogram in 2 weeks for surveillance of small pericardial effusion." Given concurrent gastroenterology recommendations, will continue with Lasix 40 mg daily at this time. GI recommending increasing spironolactone for comorbid cirrhosis. 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 Stated recommended the following: "CT in past showed cirrhosis with ascites. 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 As his heart function improves, so will the liver. Will check hep serologies and asma to complete w/up. Continue lasix and aldactone (from GI perpective can go up on aldactone and eliminate KCL as long as CKD okay 2: 5 ratio with upto 100 mg aldactone). Would start slowly at 25 and go up." Spironolactone increased from 12.5 to 25 mg daily. 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 -family would like followup sooner [facility] [place] Oncology consulted, appreciate recs -biopsy by IR needed, order placed. Family agreeable Interventional radiology consulted, appreciate recs. Recommended or stated the following: "Patient seen and imaging reviewed. Discussed with attending radiologist, Dr Torre, and would defer tissue sampling to surgical speciality." Orthopedics contacted once more and advised that surgical specialty should sample at what ever facility patient will be having surgery. [facility] oncology will be contacted for further recommendations for orthopedic oncologist referral 03/12- reporting that she was contacted and that they have followup with [facility] on 03/18/24 SSS status post PPM on Coumadin, INR supratherapeutic on arrival Coumadin currently on hold, INR 2.9 currently Given hgb currently trending lower, will continue to hold at this time Per [facility] chart review pt's home warfarin dose as of 02/21/24 is 5mg on and 2.5mg all other days. Follow INR Acute on chronic anemia Iron Deficiency Anemia Pt with low iron levels possibly dilutional given fluid retention FOBT done at the ER was negative S/p transfusion of 1U pRBCs on 03/07/24 Transfuse PRBC to maintain hemoglobin of at least 8 given history of PVD/symptomatic anemia Hemoglobin of 7.7 currently, repeat pending. 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 coumadin on hold, INR therapeutic currently DNR as per patient prior directives as per family. Dispo: PT/OT recommending home with family support Admission and Anticipated Discharge Date Admission Date: March 06, 2024 Subjective patient was seen initially in the a.m. sitting up in chair at bedside. Alert and oriented x 1 Denying acute concerns at that time except for his memory Nursing reported that he had been asking for pain meds earlier for pain related to the mass on his right arm Later notified that patient was complaining to GI of blurry vision. upon further discussion and evaluation of patient, he noted that the blurry vision had been present for some days as well as the dizziness while with any movement. Review of Systems Review of Systems: All systems reviewed & are unremarkable except as noted in Subjective Physical Exam Physical Exam: General: Alert, orientedx1. No acute distress Psych: Appropriate mood and affect Neuro: difficulty with movements HEENT: NC/AT CV: RRR, +murmur Resp: Breath sounds clear bilaterally, no increased effort of breathing Abdomen: Soft, nontender Extremities:right arm mass, edema in lower extremities bilaterally. Results & Data Results & Data Vital Signs (Past 12 Hours) Vital Signs Temp Pulse Resp BP Pulse Ox O2 Del Method O2 Flow Rate 03/12/24 12:00 36.5 C 61 19 123/68 96 Nasal Cannula 2 03/12/24 08:59 70 112/69 03/12/24 08:45 Nasal Cannula 2 03/12/24 08:00 36.5 C 62 19 107/63 94 Nasal Cannula 2 03/12/24 06:05 108/74 03/12/24 03:23 36.6 C 63 20 120/68 95 Nasal Cannula 3.0 Diagnostic Findings Chest X-Ray 03/06/24 17:53 EXAM: XR chest 1V portable CLINICAL HISTORY: WEAKNESS LDS TECHNIQUE: An X-ray image of the chest is obtained in AP projection. COMPARISON: No prior studies are available for comparison. FINDINGS: Pulmonary Parenchyma: Homogeneous opacity in the left lower lung zone with obscuration of the left cardiac border, left costophrenic angle and left hemidiaphragm. Atelectatic band noted at the right lung base. Heart and Mediastinum: Severe increase in the cardio-thoracic ratio due to global cardiomegaly. A cardiac pacemaker in situ. Bony Thorax: Bony thorax appears intact without fractures or deformities. Soft Tissues: Soft tissues overlying the chest wall are unremarkable. IMPRESSION: 1. Left lower lung zone consolidation with pleural effusion. 2. Atelectatic band at the right lung base. 3. Cardiomegaly. 4. Suggest MRI for further evaluation. Electronically signed by Samir Carlson 03-06-2024 7:[address] 03/06/24 22:21 Exam(s): CT RIGHT ELBOW With Contrast IV Amt: 93 ml optiray 320 EXAM: CT Right Upper Extremity With Intravenous Contrast, Elbow CLINICAL HISTORY: Reason for exam: enlarging mass. TECHNIQUE: Axial computed tomography images of the right elbow with intravenous contrast. CTDI is 24.91 mGy and DLP is 478.07 mGy-cm. Automated exposure control was utilized for the study. A dose lowering technique was utilized adhering to the principles of ALARA. CONTRAST: Patient received 93 ml optiray 320 of IV contrast COMPARISON: No relevant prior studies available. FINDINGS: Bones/joints: No fracture. No joint effusion. Soft tissues: Heterogeneously enhancing centrally necrotic appearing mass which appears to arise from the brachioradialis muscle measuring proximately 7 x 6.5 x 8 cm. Dilated right upper extremity veins. Nodular appearing liver. Ascites. Stones in the gallbladder. IMPRESSION: Heterogeneously enhancing centrally necrotic soft tissue mass measuring proximately 7 x 6.5 x 8 cm. 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 Electronically signed by: Maurice Chamberlain MD 03/06/24 23:52 PM Chest X-Ray 03/09/24 14:01 EXAM: Radiograph of the Chest 1 View INDICATION: Shortness of breath. TECHNIQUE: Frontal view of the chest. COMPARISON: 03/06/2024 FINDINGS: Lungs and pleural spaces: Stable small left pleural effusion and left basilar airspace consolidation. No pneumothorax. Heart: Stable enlargement, right ventricular pacing device and aortic valve prosthetic stent. Mediastinum: Normal contour. Bones/joints: No fracture, erosion or dislocation. Soft tissues: No abnormality noted. No radiopaque foreign body noted. Upper abdomen: No abnormality noted. IMPRESSION: Stable small left pleural effusion and left basilar airspace consolidation. Consider mucous plugging. ACT 112: Negative or not required by law. Electronically signed by Jasmine Ramirez 03-09-2024 2:[address] 03/10/24 13:38 EXAMINATION: Chest CT without CLINICAL HISTORY: Hypoxia with exertion TECHNIQUE: Contiguous axial images were obtained through the chest without the use of intravenous contrast. Sagittal and coronal reformations are supplied. COMPARISON: Chest radiograph 03/06/2024, 03/09/2024 FINDINGS: Lung volumes are mildly diminished. Motion artifact degrades image quality. A large left pleural effusion is present, unchanged. Mild ground glass attenuation or subtle opacity present in the left upper lobe versus atelectasis. Small right pleural effusion is present. Heart size is extremely enlarged. A large pericardial effusion is present, measuring up to 19.6 mm. Prosthetic cardiac valve is noted. Left-sided cardiac device is present within the subcutaneous tissues of the left chest wall. No adenopathy or dominant mass. Trachea and mainstem bronchi are patent. Anasarca noted. Moderate ascites present in the upper abdomen. No rib fracture or pneumothorax. Advanced osseous demineralization noted. Moderate kyphosis present. No high-grade compression fracture of the thoracic spine. IMPRESSION: 1. Radiographic features of volume overload with large left and small right pleural effusions. 2. Markedly enlarged size of the heart with large pericardial effusion measuring 19.6 mm. 3. Anasarca and moderate ascites. ACT 112: Positive. There are findings on this examination that require communication between the performing entity and the patient following Patient Test Result Information Act ([place] ACT 112) guidelines. Electronically signed by Tracy Ford 03-10-2024 2:[address] 03/12/24 09:23 CT OF THE HEAD WITHOUT CONTRAST CLINICAL HISTORY: blurry vision for 2 days COMPARISON STUDY: No previous studies for comparison. CT DOSE: 625.8 mGy.cm TECHNIQUE: Helical axial images of the head were obtained without IV contrast. Automated exposure control was utilized for the study. A dose lowering technique was utilized adhering to the principles of ALARA. FINDINGS: No acute intracranial hemorrhage, midline shift or mass effect is present. The ventricular system is unremarkable. The basal cisterns are patent. Mild white matter hypodensities suggest small vessel disease. No extra-axial collections are present. There are no findings to suggest acute dural sinus thrombosis or acute territorial infarct. No significant calvarial abnormalities are present. Visualized portions of the sinuses and mastoid air cells are clear. IMPRESSION: No acute intracranial findings. ACT 112: Negative or not required by law. Electronically signed by: Celestine Zepeda M.D. 03/12/2024 10:54 AM (6) HTN (hypertension) Hypertension type: primary hypertension Qualified Code(s): I10 - Essential (primary) hypertension
[2024-03-12 15:54] LABS: Hematocrit (blood only) 24.6 % (42.0-52.0); Hemoglobin 7.6 g/dl (14.0-18.0)
[2024-03-12] MEDS ORDERED: WARFARIN SOD 5 MG TAB PO SCH (16:00)
[2024-03-13 06:14] LABS: Basophils # (auto) 0.01 K/uL (0.00-0.20); Basophils % (auto) 0.1 %; Eosinophils # (auto) 0.15 K/uL (0.00-0.50); Eosinophils % (auto) 1.1 %; Hematocrit (blood only) 23.7 % (42.0-52.0); Hemoglobin 7.4 g/dl (14.0-18.0); Immature Granulocytes # (auto) 0.11 K/uL (0.01-0.20); Immature Granulocytes % (auto) 0.8 %; Lymphocytes # (auto) 0.85 K/uL (1.20-3.40); Lymphocytes % (auto) 6.4 %; Mean Corpuscular Hemoglobin 24.1 pg (25.0-34.0); Mean Corpuscular Hgb Conc 31.2 g/dL (32.0-36.0); Mean Corpuscular Volume 77.2 fL (80.0-100.0); Mean Platelet Volume 9.3 fL (9.4-12.4); Monocytes # (auto) 1.22 K/uL (0.11-0.59); Monocytes % (auto) 9.2 %; Neutrophils # (auto) 10.88 K/uL (1.40-6.50); Neutrophils % (auto) 82.4 %; Platelet Count 267 K/uL (130-400); RDW Coefficient of Variation 20.1 % (11.5-14.5); RDW Standard Deviation 56.6 fL (36.4-46.3); Red Blood Count 3.07 M/uL (4.70-6.10); White Blood Count 13.22 K/ul (4.8-10.8)
[2024-03-13 06:32] LABS: BUN Creatinine Ratio 18.3 (10-20); Calcium 8.3 mg/dl (8.6-10.3); Creatinine Clr Calc Pharmacy 54.4 ml/min; Magnesium 1.8 mg/dl (1.7-2.4); Phosphorus 3.2 mg/dl (2.5-4.9)
[2024-03-13 06:49] LABS: Anisocytosis Present; Ovalocytes 1+; Polychromasia 2+
[2024-03-13 09:48] LABS: INR 2.5 (0.9-1.1); Prothrombin Time 24.9 Seconds (9.0-12.0)
--- NOTE | 2024-03-13 16:31 | Hospitalist Progress Note ---
Date of Service March 13, 2024 Assessment & Plan (1) Acute on chronic diastolic heart failure with preserved ejection fraction: (2) Symptomatic anemia: (3) Supratherapeutic INR: (4) Atrial fibrillation: (5) Elbow mass: (6) HTN (hypertension): (7) Dyslipidemia: (8) CKD (chronic kidney disease), stage III: (9) History of bioprosthetic transcatheter aortic valve implantation (KEILA): (10) Sleep apnea: (11) Prostate cancer: Plan Mr. Oliver is an 88-year-old male with PMH chronic atrial fibrillation anticoagulated on warfarin, history KEILA in 10/2018, symptomatic s/p pacemaker, chronic diastolic heart failure, HTN, dyslipidemia, CKD III, sleep apnea, prostate cancer, obesity presented to ER with c/o exertional SOB--thought to be multifactorial given volume overload from heart failure and liver failure. Patient underwent aggressive diuresis with Cardiology Ortho consulted for right elbow mass and IR as well, deferred management for specialist as OP GI consulted for cirrhosis, agreed with continued use of aldactone and lasix. Patient doing much better today and family hopeful for DC to home with close specialist follow up #Persistent Leukocytosis #Chronic microcytic anemia ferritin elevated iso questionable malignancy, iron level <10 s/p IV iron x 2 and 1 PRBC this admission Peripheral smear for leukocytosis Follow up OP trend CBC in am #Acute hypoxemic respiratory failure, multifactorial #Acute on chronic heart failure with preserved EF #Bilateral Pleural Effusions Patient with recent admission in 01/2024 for HF exacerbation s/p IV lasix BID Strict I/Os, daily weights, CHF education, fluid restriction Cardiology consulted, appreciate recs -continue lasix 40mg BID Prior hospitalist, "Pulmonology consulted: Will start incentive spirometry. Wean oxygen to maintain saturations at or above 88%. It is possible the patient may require supplemental oxygen at discharge. If pleural effusions in large and patient symptomatic, will consider IR thoracentesis ambulatory assessment for O2 need #Pericardial Effusion Noted on CT chest Stat consult to cardiology, case discussed as noted above- pt hemodynamically stable, echo to be done first thing in AM EKG ordered noting paced rhythm Troponin normal Repeat echo noting EF of 55 to 60%, new small loculated posterior lateral pericardial effusion, ascites seen as well as pleural effusions Cardiology consulted, appreciate recs. Recommended/stated the following: "Echocardiogram reviewed. Results discussed with both patient and family at bedside. No indication for pericardiocentesis. Appears the fluid is mostly pleural on the CT scan. Consider titration of furosemide to 40 mg twice daily. INR 2.9 today. Warfarin remains on hold.Monitor fluid balance, daily weight, G FR, and electrolytes. Repeat limited echocardiogram in 2 weeks for surveillance of small pericardial effusion." Given concurrent gastroenterology recommendations, will continue with Lasix 40 mg daily at this time. GI recommending increasing spironolactone for comorbid cirrhosis. #Ascites #Cirrhosis 2/2 CHF on imaging, moderate Gastroenterology consulted, appreciate recs. 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 as scheduled or [facility] provider Dr Draper, ortho oncologist. -family would like followup sooner [facility] consulted, appreciate recs -biopsy by IR needed, order placed. Family agreeable Interventional radiology consulted, appreciate recs. Recommended or stated the following: "Patient seen and imaging reviewed. Discussed with attending radiologist, Dr Torre, and would defer tissue sampling to surgical speciality." Orthopedics contacted once more and advised that surgical specialty should sample at what ever facility patient will be having surgery. [facility] oncology will be contacted for further recommendations for orthopedic oncologist referral 03/12- reporting that she was contacted and that they have followup with [facility] on 03/18/24 #SSS status post PPM INR stable at 2.5, resume coumadin Per [facility] chart review pt's home warfarin dose as of 02/21/24 is 5mg on and 2.5mg all other days. 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 coumadin, INR therapeutic currently DNR as per patient prior directives as per family. Dispo: PT/OT recommending home with family support Admission and Anticipated Discharge Date Admission Date: March 06, 2024 Subjective NAEO Denies any new symptoms, reports abdomen and legs with improved swelling Denies SOB, chest pain or other acute concerns Physical Exam Respiratory: clear, but diminished bibasilar breath sounds Cardiovascular: trace BLE edema, non pitting RRR Gastrointestinal (Abdomen): mildly protuberant, but soft NT Results & Data Results & Data Vital Signs (Past 12 Hours) Vital Signs Temp Pulse Pulse Resp BP Pulse Ox O2 Del Method 03/13/24 15:23 36.7 C 60 18 117/64 97 Nasal Cannula 03/13/24 14:48 92 03/13/24 11:01 36.7 C 61 21 105/59 L 97 Nasal Cannula 03/13/24 10:14 Nasal Cannula 03/13/24 09:27 72 113/64 03/13/24 07:54 62 03/13/24 07:33 36.5 C 61 18 90/54 L 96 Nasal Cannula 03/13/24 06:07 132/81 O2 Flow Rate 03/13/24 15:23 03/13/24 14:48 3 03/13/24 11:01 03/13/24 10:14 2 03/13/24 09:27 03/13/24 07:54 03/13/24 07:33 3 03/13/24 06:07 Laboratory Results Short CBC 03/13/24 Range/Units 05:43 WBC 13.22 H (4.8-10.8) K/ul Hgb 7.4 L (14.0-18.0) g/dl Hct 23.7 L (42.0-52.0) % Plt Count 267 (130-400) K/uL BMP 03/13/24 05:43 Sodium 134 L Potassium 4.0 Chloride 96 L Carbon Dioxide 33 H BUN 17 Creatinine 0.93 Glucose 103 H Calcium 8.3 L Medications Administered Home Medications Medication Instructions Recorded Confirmed Last Taken acetaminophen 325 mg tablet 325 mg PO Q6 PRN as directed 10/11/18 03/06/24 Unknown cholecalciferol (vitamin D3) 25 1,000 unit PO QAM 10/11/18 03/06/24 Unknown mcg (1,000 unit) tablet amlodipine 2.5 mg tablet 2.5 mg PO QAM 01/26/24 03/06/24 01/26/24 aspirin 81 mg tablet,delayed 81 mg PO .ON HOLD 01/26/24 03/06/24 Unknown release atorvastatin 20 mg tablet 20 mg PO DAILY 01/26/24 03/06/24 Unknown isosorbide dinitrate 20 mg tablet 20 mg PO BID 01/26/24 03/06/24 Unknown metoprolol succinate 25 mg 25 mg PO DAILY 01/26/24 03/06/24 Unknown tablet,extended release 24 hr omeprazole 20 mg capsule,delayed 20 mg PO QAM 01/26/24 03/06/24 Unknown release potassium chloride 20 mEq 20 meq PO QAM #30 tabs 01/31/24 03/06/24 Unknown tablet,extended release(part/cryst) ferrous sulfate 325 mg (65 mg 325 mg PO QDB 03/06/24 03/06/24 Unknown iron) tablet,delayed release furosemide 40 mg tablet 40 mg PO QAM 03/06/24 03/06/24 Unknown warfarin 5 mg tablet 5 - 10 mg PO .ON HOLD SINCE 03/0503/06/24 03/06/24 Unknown Active Medications Generic Name Dose Route Start Last Admin Trade Name Freq PRN Reason Stop Dose Admin Acetaminophen 500 mg 03/07/24 09:36 03/12/24 06:07 Acetaminophen 500 Mg Tab PO 04/06/24 09:35 500 mg Q6H PRN Administration fever/pain Amlodipine Besylate 2.5 mg 03/07/24 09:00 03/13/24 09:23 Amlodipine Besylate 5 Mg Tab PO 04/06/24 08:59 2.5 mg QAM JACQUELIN Administration Atorvastatin Calcium 20 mg 03/07/24 09:00 03/13/24 09:20 Atorvastatin 20 Mg Tab PO 04/06/24 08:59 20 mg DAILY JACQUELIN Administration Furosemide 40 mg 03/12/24 09:00 03/13/24 09:20 Furosemide 40 Mg Tab PO 04/11/24 08:59 40 mg DAILY JACQUELIN Administration Isosorbide Dinitrate 20 mg 03/07/24 07:00 03/13/24 11:51 Isosorbide Dinitrate 20 Mg Tab PO 04/06/24 06:59 20 mg BID@0700,1200 JACQUELIN Administration Magnesium Oxide 400 mg 03/12/24 09:00 03/13/24 09:19 Magnesium Oxide 400 Mg Tab PO 04/11/24 08:59 400 mg BID JACQUELIN Administration Metoprolol Succinate 25 mg 03/07/24 09:00 03/13/24 09:20 Metoprolol Succ 25mg Ext Rel Tab PO 04/06/24 08:59 25 mg DAILY JACQUELIN Administration Pantoprazole Sodium 40 mg 03/07/24 09:00 03/13/24 09:20 Pantoprazole 40 Mg Tab PO 04/06/24 08:59 40 mg QAM JACQUELIN Administration Potassium Chloride 20 meq 03/07/24 09:00 03/11/24 08:30 Potassium Chloride Crtab 20 Meq Tabcr PO 04/06/24 08:59 20 meq BID JACQUELIN Administration Spironolactone 25 mg 03/12/24 09:00 03/13/24 09:24 Spironolactone 25 Mg Tab PO 04/11/24 08:59 25 mg DAILY JACQUELIN Administration (6) HTN (hypertension) Hypertension type: primary hypertension Qualified Code(s): I10 - Essential (primary) hypertension
[2024-03-13] MEDS: WARFARIN SOD 2.5 MG TAB PO SCH (17:00)
[2024-03-13] MEDS: IRON SUCROSE 300 MG in SODIUM CHLORIDE 0.9% 250 ML IV ONE (17:27)
[2024-03-14 06:07] LABS: Hematocrit (blood only) 24.4 % (42.0-52.0); Hemoglobin 7.6 g/dl (14.0-18.0); Mean Corpuscular Hemoglobin 24.4 pg (25.0-34.0); Mean Corpuscular Hgb Conc 31.1 g/dL (32.0-36.0); Mean Corpuscular Volume 78.2 fL (80.0-100.0); Mean Platelet Volume 9.8 fL (9.4-12.4); Platelet Count 270 K/uL (130-400); RDW Standard Deviation 57.4 fL (36.4-46.3); Red Blood Count 3.12 M/uL (4.70-6.10); White Blood Count 12.24 K/ul (4.8-10.8)
[2024-03-14 06:26] LABS: Albumin Globulin Ratio 0.7 (0.9-2); Albumin Level 2.4 gm/dl (3.4-5.0); BUN Creatinine Ratio 19.6 (10-20); Bilirubin,Total 1.1 mg/dl (0.2-1.0); Calcium 8.4 mg/dl (8.6-10.3); Globulin 3.3 gm/dl (2.5-4.0); Magnesium 1.8 mg/dl (1.7-2.4); Phosphorus 3.3 mg/dl (2.5-4.9); Potassium 4.1 mmol/L (3.5-5.1); Total Protein 5.7 gm/dl (6.0-8.3)
--- NOTE | 2024-03-14 11:31 | Hospitalist Progress Note ---
Date of Service March 14, 2024 Assessment & Plan (1) Acute on chronic diastolic heart failure with preserved ejection fraction: (2) Symptomatic anemia: (3) Supratherapeutic INR: (4) Atrial fibrillation: (5) Elbow mass: (6) HTN (hypertension): (7) Dyslipidemia: (8) CKD (chronic kidney disease), stage III: (9) History of bioprosthetic transcatheter aortic valve implantation (KEILA): (10) Sleep apnea: (11) Prostate cancer: Plan Mr. Oliver is an 88-year-old male with PMH chronic atrial fibrillation anticoagulated on warfarin, history KEILA in 10/2018, symptomatic s/p pacemaker, chronic diastolic heart failure, HTN, dyslipidemia, CKD III, sleep apnea, prostate cancer, obesity presented to ER with c/o exertional SOB--thought to be multifactorial given volume overload from heart failure and liver failure. Patient underwent aggressive diuresis with Cardiology Ortho consulted for right elbow mass and IR as well, deferred management for specialist as OP GI consulted for cirrhosis, agreed with continued use of aldactone and lasix. Plan was initially going to be discharge home with HH; however, son Ziyad noted concerns about ability for patient's to care for patient given complicated comorbidities. 75 minutes was spent explaining hospice/placement/SNF Ziyad reports that rehab/placement is not an option Discussed limitations of HH and also that patient has multiple progressive conditions not including the new mass on elbow--which if malignant raises the question of tolerance for intervention. Family agreed that at this time they do want to pursue quality over quantity of life and open to hospice discussions. Hospice came to speak with family and devonte rushing to transition to [facility] hospice. #Persistent Leukocytosis #Chronic microcytic anemia ferritin elevated iso questionable malignancy, iron level <10 s/p IV iron x 2 and 1 PRBC this admission Peripheral smear for leukocytosis remains stable, leukocytosis on smear suspicious for iron deficiency/reactive process, less likely related to myeloproliferative process #Acute hypoxemic respiratory failure, multifactorial #Acute on chronic heart failure with preserved EF #Bilateral Pleural Effusions Patient with recent admission in 01/2024 for HF exacerbation s/p IV lasix BID Strict I/Os, daily weights, CHF education, fluid restriction Cardiology consulted, appreciate recs -continue lasix 40mg BID Prior hospitalist, "Pulmonology consulted: Will start incentive spirometry. Wean oxygen to maintain saturations at or above 88%. It is possible the patient may require supplemental oxygen at discharge. If pleural effusions in large and patient symptomatic, will consider IR thoracentesis 2step performed: no oxygen requirement at this time #Pericardial Effusion Noted on CT chest Stat consult to cardiology, case discussed as noted above- pt hemodynamically stable, echo to be done first thing in AM EKG ordered noting paced rhythm Troponin normal Repeat echo noting EF of 55 to 60%, new small loculated posterior lateral pericardial effusion, ascites seen as well as pleural effusions Cardiology consulted, appreciate recs. Recommended/stated the following: "Echocardiogram reviewed. Results discussed with both patient and family at bedside. No indication for pericardiocentesis. Appears the fluid is mostly pleural on the CT scan. Consider titration of furosemide to 40 mg twice daily. INR 2.9 today. Warfarin remains on hold.Monitor fluid balance, daily weight, GFR, and electrolytes. Repeat limited echocardiogram in 2 weeks for surveillance of small pericardial effusion." Given concurrent gastroenterology recommendations, will continue with Lasix 40 mg daily at this time. GI recommending increasing spironolactone for comorbid cirrhosis. #Ascites #Cirrhosis 2/2 CHF on imaging, moderate Gastroenterology consulted, appreciate recs. 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 -family would like followup sooner [facility] [place] Oncology consulted, appreciate recs -biopsy by IR needed, order placed. Family agreeable Interventional radiology consulted, appreciate recs. Recommended or stated the following: "Patient seen and imaging reviewed. Discussed with attending radiologist, Dr Torre, and would defer tissue sampling to surgical speciality." Orthopedics contacted once more and advised that surgical specialty should sample at what ever facility patient will be having surgery. [facility] oncology will be contacted for further recommendations for orthopedic oncologist referral 03/12- reporting that she was contacted and that they have followup with [facility] on 03/18/24 -Will likely postpone/cancel this as patient is transitioned to hospice #SSS status post PPM INR stable at 2.5, resume coumadin Per [facility] chart review pt's home warfarin dose as of 02/21/24 is 5mg on and 2.5mg all other days. 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 coumadin, INR therapeutic currently DNR as per patient prior directives as per family. Dispo: home with hospice Admission and Anticipated Discharge Date Admission Date: March 06, 2024 Subjective NAEO Feeling well this morning Walked around with RT does not require O2 Denies any localizing symptoms and reports overall feeling well Physical Exam Constitutional: WD/WN, vitals as above sitting in beside chair Respiratory: diminished bibasilar breath sounds Cardiovascular: RRR, no murmur, no edema Results & Data Results & Data Vital Signs (Past 12 Hours) Vital Signs Temp Pulse Pulse Pulse Pulse Pulse Resp 03/14/24 11:12 36.5 C 63 18 03/14/24 09:54 62 03/14/24 08:32 03/14/24 08:20 96 H 91 H 62 03/14/24 08:00 36.4 C L 77 19 03/14/24 03:07 36.8 C 70 18 03/14/24 00:07 36.6 C 70 19 Resp Resp Resp BP Pulse Ox Pulse Ox Pulse Ox 03/14/24 11:12 102/50 L 92 03/14/24 09:54 03/14/24 08:32 03/14/24 08:20 18 16 16 94 93 03/14/24 08:00 122/72 92 03/14/24 03:07 145/64 H 95 03/14/24 00:07 128/49 L 94 Pulse Ox O2 Del Method O2 Flow Rate 03/14/24 11:12 Room Air 03/14/24 09:54 03/14/24 08:32 Room Air 03/14/24 08:20 93 03/14/24 08:00 Room Air 03/14/24 03:07 Nasal Cannula 2.0 03/14/24 00:07 Nasal Cannula 2.0 Laboratory Results Short CBC 03/14/24 Range/Units 05:36 WBC 12.24 H (4.8-10.8) K/ul Hgb 7.6 L (14.0-18.0) g/dl Hct 24.4 L (42.0-52.0) % Plt Count 270 (130-400) K/uL BMP 03/14/24 05:36 Sodium 135 L Potassium 4.1 Chloride 97 L Carbon Dioxide 33 H BUN 18 Creatinine 0.92 Glucose 96 Calcium 8.4 L Liver Function 03/14/24 Range/Units 05:36 Total Bilirubin 1.1 H (0.2-1.0) mg/dl AST 15 (13-39) U/L ALT 11 (7-52) U/L Alkaline Phosphatase 95 (34-104) U/L Albumin 2.4 L (3.4-5.0) gm/dl Medications Administered Home Medications Medication Instructions Recorded Confirmed Last Taken acetaminophen 325 mg tablet 325 mg PO Q6 PRN as directed 10/11/18 03/06/24 Unknown cholecalciferol (vitamin D3) 25 1,000 unit PO QAM 10/11/18 03/06/24 Unknown mcg (1,000 unit) tablet amlodipine 2.5 mg tablet 2.5 mg PO QAM 01/26/24 03/06/24 01/26/24 aspirin 81 mg tablet,delayed 81 mg PO .ON HOLD 01/26/24 03/06/24 Unknown release atorvastatin 20 mg tablet 20 mg PO DAILY 01/26/24 03/06/24 Unknown isosorbide dinitrate 20 mg tablet 20 mg PO BID 01/26/24 03/06/24 Unknown metoprolol succinate 25 mg 25 mg PO DAILY 01/26/24 03/06/24 Unknown tablet,extended release 24 hr omeprazole 20 mg capsule,delayed 20 mg PO QAM 01/26/24 03/06/24 Unknown release potassium chloride 20 mEq 20 meq PO QAM #30 tabs 01/31/24 03/06/24 Unknown tablet,extended release(part/cryst) ferrous sulfate 325 mg (65 mg 325 mg PO QDB 03/06/24 03/06/24 Unknown iron) tablet,delayed release warfarin 5 mg tablet 5 - 10 mg PO .ON HOLD SINCE 03/0503/06/24 03/06/24 Unknown furosemide 40 mg tablet 40 mg PO BID 30 days #60 tabs 03/14/24 Unknown magnesium oxide 400 mg (241.3 mg 400 mg PO BID #30 tabs 03/14/24 Unknown magnesium) tablet spironolactone 25 mg tablet 25 mg PO DAILY 30 days #30 tabs 03/14/24 Unknown Active Medications Generic Name Dose Route Start Last Admin Trade Name Shania PRN Reason Stop Dose Admin Acetaminophen 500 mg 03/07/24 09:36 03/12/24 06:07 Acetaminophen 500 Mg Tab PO 04/06/24 09:35 500 mg Q6H PRN Administration fever/pain Amlodipine Besylate 2.5 mg 03/07/24 09:00 03/14/24 08:27 Amlodipine Besylate 5 Mg Tab PO 04/06/24 08:59 2.5 mg QAM JACQUELIN Administration Atorvastatin Calcium 20 mg 03/07/24 09:00 03/14/24 08:29 Atorvastatin 20 Mg Tab PO 04/06/24 08:59 20 mg DAILY JACQUELIN Administration Isosorbide Dinitrate 20 mg 03/07/24 07:00 03/14/24 12:36 Isosorbide Dinitrate 20 Mg Tab PO 04/06/24 06:59 20 mg BID@0700,1200 JACQUELIN Administration Magnesium Oxide 400 mg 03/12/24 09:00 03/14/24 08:29 Magnesium Oxide 400 Mg Tab PO 04/11/24 08:59 400 mg BID JACQUELIN Administration Metoprolol Succinate 25 mg 03/07/24 09:00 03/14/24 08:30 Metoprolol Succ 25mg Ext Rel Tab PO 04/06/24 08:59 25 mg DAILY JACQUELIN Administration Pantoprazole Sodium 40 mg 03/07/24 09:00 03/14/24 08:30 Pantoprazole 40 Mg Tab PO 04/06/24 08:59 40 mg QAM JACQUELIN Administration Potassium Chloride 20 meq 03/07/24 09:00 03/11/24 08:30 Potassium Chloride Crtab 20 Meq Tabcr PO 04/06/24 08:59 20 meq BID JACQUELIN Administration Spironolactone 25 mg 03/12/24 09:00 03/14/24 08:31 Spironolactone 25 Mg Tab PO 04/11/24 08:59 25 mg DAILY JACQUELIN Administration Warfarin Sodium 2.5 mg 03/12/24 16:00 03/13/24 17:00 Warfarin Sod 2.5 Mg Tab PO 04/11/24 15:59 2.5 mg [id number] JACQUELIN Administration (6) HTN (hypertension) Hypertension type: primary hypertension Qualified Code(s): I10 - Essential (primary) hypertension
[2024-03-14] MEDS: WARFARIN SOD 5 MG TAB PO SCH (16:43)
[2024-03-14] MEDS: FUROSEMIDE 40 MG TAB PO SCH (20:12)
[2024-03-15 07:48] LABS: INR 2.9 (0.9-1.1); Prothrombin Time 28.2 Seconds (9.0-12.0)
[2024-03-15 08:19] VITALS: RESP 20; TEMP 98.1; O2SAT 92
--- NOTE | 2024-03-15 11:45 | Discharge Summary ---
Discharge Summary Date of Service March 15, 2024 Principal Dx & Hospital Course #1 = Principal Diagnosis (1) Acute on chronic diastolic heart failure with preserved ejection fraction: (2) Symptomatic anemia: (3) Supratherapeutic INR: (4) Atrial fibrillation: (5) Elbow mass: (6) HTN (hypertension): (7) Dyslipidemia: (8) CKD (chronic kidney disease), stage III: (9) History of bioprosthetic transcatheter aortic valve implantation (KEILA): (10) Sleep apnea: (11) Prostate cancer: Plan Mr. Oliver is an 88-year-old male with PMH chronic atrial fibrillation anticoagulated on warfarin, history KEILA in 10/2018, symptomatic s/p pacemaker, chronic diastolic heart failure, HTN, dyslipidemia, CKD III, sleep apnea, prostate cancer, obesity presented to ER with c/o exertional SOB--thought to be multifactorial given volume overload from heart failure and liver failure. Patient underwent aggressive diuresis with Cardiology Ortho consulted for right elbow mass and IR as well, deferred management for specialist as OP GI consulted for cirrhosis, agreed with continued use of aldactone and lasix. Plan was initially going to be discharge home with HH; however, son Ziyad noted concerns about ability for patient's to care for patient given complicated comorbidities. Long conversation about hospice was held on 03/14. Son, Ziyad, reports that rehab/placement is not an option Discussed limitations of HH and also that patient has multiple progressive conditions not including the new mass on elbow--which if malignant raises the question of tolerance for intervention.Family agreed that at this time they do want to pursue quality over quantity of life and open to hospice discussions. Hospice came to speak with family and patient to transition to [facility] hospice. On day of discharge, patient was doing well sitting in bedside chair and eager for home. He denies any new symptoms or concerns. Patient discharged on home hospice. #Persistent Leukocytosis #Chronic microcytic anemia ferritin elevated iso questionable malignancy, iron level <10 s/p IV iron x 2 and 1 PRBC this admission Peripheral smear for leukocytosis remains stable, leukocytosis on smear suspicious for iron deficiency/reactive process, less likely related to myeloproliferative process #Acute hypoxemic respiratory failure, multifactorial *resolved #Acute on chronic heart failure with preserved EF #Bilateral Pleural Effusions Patient with recent admission in 01/2024 for HF exacerbation s/p IV lasix BID Strict I/Os, daily weights, CHF education, fluid restriction Cardiology consulted, appreciate recs -continue lasix 40mg BID If pleural effusions in large and patient symptomatic, will consider IR thoracentesis 2step performed: no oxygen requirement at this time #Pericardial Effusion Noted on CT chest Stat consult to cardiology, case discussed as noted above- pt hemodynamically stable, echo to be done first thing in AM EKG ordered noting paced rhythm Troponin normal Repeat echo noting EF of 55 to 60%, new small loculated posterior lateral pericardial effusion, ascites seen as well as pleural effusions Cardiology consulted, appreciate recs. Recommended/stated the following: Lasix BID Consider ECHO in future contingent of future GOC #Ascites #Cirrhosis 2/2 CHF on imaging, moderate Gastroenterology consulted, appreciate recs. 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 -family would like followup [place] [facility] [place] consulted, appreciate recs -biopsy by IR needed, order placed. Family agreeable Interventional radiology consulted, appreciate recs. Recommended or stated the following: "Patient seen and imaging reviewed. Discussed with attending radiologist, Dr Torre, and would defer tissue sampling to surgical speciality." Orthopedics contacted once more and advised that surgical specialty should sample at what ever facility patient will be having surgery. [facility] oncology will be contacted for further recommendations for orthopedic oncologist referral 03/12- reporting that she was contacted and that they have followup with [facility] on 03/18/24 -Will likely postpone/cancel this as patient is transitioned to hospice #SSS status post PPM INR stable at 2.5, resume coumadin Per [facility] chart review pt's home warfarin dose as of 02/21/24 is 5mg on and 2.5mg all other days. 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 Per inpatient chart review recent history of hospitalization 01/26/2024-01/31/2024 for symptomatic anemia, hematochezia and acute on chronic HFpEF. During that hospitalization GI was consulted and patient had underwent colonoscopy and EGD. He Received IV iron x 2 doses. Cardiology was consulted. Patient was diuresed with IV Lasix and transition to 40 mg Lasix daily with his prior home HCTZ discontinued. Cardiology recommended to continue home amlodipine, metoprolol succinate, isosorbide. Upon discharge warfarin was restarted. Patient family report noted increased exertional SOB recently. Patient states he does feel SOB with exertion through the house but he states he didn't think it was worse than previously. Has noticed increased BLE edema. He think having increased abdominal girth also. He sleeps with one pillow and denies noticing orthopnea. He is to use CPAP however reports hasn't been using. Reports intermittently checking home pulse ox is 87 to 91% on room air. Some slight no nproductive cough reported. He denies noticing palpitations, CP, dizziness, or falls. Patient states taking lasix daily but doesn't feel he is urinating that much. 03/05/2024 INR: 4.9. His home warfarin was held. Patient seen PCPs office today for exertional shortness of breath and reported increased BLE edema and was referred to ER. Patient also has been having ongoing edema/mass to right posterior elbow and was seen by outpatient sports medicine and had attempt at aspiration. Repeat ultrasound right elbow on 01/30/2024: 5.3x 3.1 x 4.5 cm complex uniformly hypoechoic circumscribed abnormality of the right elbow which corresponds to the palpable lump. Given lack of color flow, olecranon bursitis with complex contents is favored. A mass is within the differential but considered less likely given lack of color flow. Clinical follow-up to ensure stability/resolution is recommended. If interval enlargement, repeat ultrasound is recommended. He was scheduled for MRI elbow [place] [facility] [place] as patient with history of pacemaker Patient reports increased edema to right posterior elbow and states area only tender with palpation. Denies any skin erythema or discharge. 01/26/2024 echo: EF 55-60%, small inferior wall akinesis, moderately increased left ventricular wall thickness, severe biatrial enlargement, s/p TAVR, mild MR Outpatient labs on 03/05/2024 Hgb: 7.3 In ER Today Hgb: 7.9. Hgb was 8.2 on Discharge on 01/31/2024. Admission Exam Per Admitting Provider General: no distress, WDWN Head: normocephalic, atraumatic Eyes: conjunctiva pale, anicteric ENT: normal inspection external ears, nose, mucous membranes moist Neck: supple, trachea midline Lungs: no respiratory distress sitting in bed, currently 90% on RA, +rales bases bilaterally CV: irregularly irregular, + murmur, 2+ pretibial edema Abd: +distended, normal BS, soft, non-tender Ext: no cyanosis, no calf tenderness, Right elbow with mass approximately size of baseball without erythema, no significant tenderness to palpation, active flexion and extension elbow intact Neuro: A&O x 3, no focal deficits noted, normal affect Skin: pale, warm, dry Discharge Exam Constitutional WD/WN, vitals as above Respiratory normal respiratory effort, lungs clear to auscultation Cardiovascular irregularly irregular, trace pedal edema Gastrointestinal (Abdomen) protuberant, but soft Updated Medication List Medication Instructions Recorded Confirmed Type acetaminophen 325 mg tablet 325 mg PO Q6 PRN as directed 10/11/18 03/06/24 History cholecalciferol (vitamin D3) 25 1,000 unit PO QAM 10/11/18 03/06/24 History mcg (1,000 unit) tablet amlodipine 2.5 mg tablet 2.5 mg PO QAM 01/26/24 03/06/24 History aspirin 81 mg tablet,delayed 81 mg PO .ON HOLD 01/26/24 03/06/24 History release atorvastatin 20 mg tablet 20 mg PO DAILY 01/26/24 03/06/24 History isosorbide dinitrate 20 mg tablet 20 mg PO BID 01/26/24 03/06/24 History metoprolol succinate 25 mg 25 mg PO DAILY 01/26/24 03/06/24 History tablet,extended release 24 hr omeprazole 20 mg capsule,delayed 20 mg PO QAM 01/26/24 03/06/24 History release potassium chloride 20 mEq 20 meq PO QAM #30 tabs 01/31/24 03/06/24 Rx tablet,extended release(part/cryst) ferrous sulfate 325 mg (65 mg 325 mg PO QDB 03/06/24 03/06/24 History iron) tablet,delayed release warfarin 5 mg tablet 5 - 10 mg PO .ON HOLD SINCE 03/0503/06/24 03/06/24 History furosemide 40 mg tablet 40 mg PO BID 30 days #60 tabs 03/14/24 Rx magnesium oxide 400 mg (241.3 mg 400 mg PO BID #30 tabs 03/14/24 Rx magnesium) tablet spironolactone 25 mg tablet 25 mg PO DAILY 30 days #30 tabs 03/14/24 Rx Hospital Stay Data Consultations 03/06/24 19:43 ED Decision to Admit Stat 03/06/24 23:33 Consult Cardiology Routine 03/07/24 00:43 Consult Orthopedic Surgery Routine 03/09/24 10:27 Consult Oncology Routine 03/10/24 18:40 Consult Cardiology Stat 03/11/24 08:50 Consult Pulmonology Routine 03/11/24 08:51 Consult Gastroenterology Routine 03/11/24 14:45 Consult Orthopedic Surgery Routine Diagnostic Imagining Performed 03/06/24 22:21 CT elbow RT w con Stat 03/10/24 13:38 CT chest diagnostic wo con Urgent 03/12/24 09:23 CT head/brain wo con Urgent Pending Results Patient Have Any Pending Studies at Discharge: No Discharge Instructions Given to Patient (Per Discharging Provider) You were admitted for volume overload due to heart and liver You will need to follow up in 1 week with your PCP for labs Your medications were adjusted as follows: -Furosemide increased to 40mg two times a day -Spironolactone 25mg daily started -Magnesium Oxide 400mg daily started Please resume all other medications as prescribed. You need to follow up with your Orthopedic Oncologist/Specialist for biopsy of Right elbow mass. You need to follow up with Cardiology. [place] dietary components to prioritize: Low sodium intake:This is crucial for both heart and liver health, so avoid processed foods, canned soups, cured meats, and heavily salted snacks;check food labels carefully.Lean protein sources:Opt for fish like salmon, tuna, and cod, skinless poultry, beans, lentils, tofu, and lean cuts of beef.Fiber-rich vegetables and fruits:Include a variety of fresh fruits and vegetables like leafy greens, broccoli, carrots, berries, apples, and pears.Whole grains:Choose whole-wheat bread, brown rice, quinoa, and oats over refined grains.Healthy fats:Include moderate amounts of healthy fats from sources like avocado, olive oil, and nuts. Foods to limit or avoid: * Red meat and processed meats:High in saturated fat and sodium * Fatty dairy products:Full-fat milk, cheese, and ice cream * Fried foods:High in unhealthy fats * Sugary drinks and desserts:Can contribute to liver damage and weight gain * Alcohol:Can significantly worsen liver damage * High-sodium condiments:Soy sauce, pickles, and some salad dressings Important considerations: * Portion control:Pay attention to serving sizes to manage calorie intake. * Hydration:2L Fluid restriction * Consult a registered dietitian:They can create a personalized meal plan tailored to your specific needs and medical conditions Weight monitoring Weigh yourself every day. A sudden weight gain can mean your heart failure is getting worse. Weigh yourself at the same time of day and in the same kind of clothes. Ideally, weigh yourself first thing in the morning after you empty your bladder, but before you eat breakfast. Your healthcare provider will show you how to track your weight. They will also tell you when you should call if you have a sudden, unexpected increase in your weight. If your weight goes up by more [id number] in1day,5pounds [id number], please call your PCP or Opthalmic Tech. This is a sign that you are retaining more fluid than you should be. Clues to weight gain include checking your ankles for swelling, or noticing you are short of breath when you lie down. Total Time Total Time Spent Total Time Spent (In Minutes): 45
[2024-03-15 13:45] VITALS: BP 138/74; PULSE 70
[2024-03-17 17:17] LABS: Hepatitis A Antibody Total REACTIVE (NON-REACTIVE); Hepatitis B Core Antibody IgM NON-REACTIVE (NON-REACTIVE); Hepatitis BE Antigen Nonreactive; Smooth Muscle Antibody POSITIVE (NEGATIVE)
[2024-03-18 08:05] LABS: Smooth Muscle Ab Titer 1:20 titer (<1:20)
== END 2024-03-15 13:59 | disposition hospice, home (50) | DRG 291 ==
LOC: ED 17:34 → 2E 22:20 → SUATTDRO 22:20 → 2E 23:11